=== PATIENT | male | born 1950 | race Caucasian/White ===

== ENCOUNTER 2019-04-11 11:52 | Outpatient (RCR) | payer MEDICARE, MEDICAID, SELFPAY ==
[2019-04-11 14:12] VITALS: BMI 32.3
== END 2019-06-25 07:44 | disposition home or self-care (01) ==
LOC: ANHWOC 11:52
PROVIDERS: PCP Family Medicine; Visit Provider Family Medicine
DX: L03.115 Cellulitis of right lower limb (principal); L98.9 Disorder of the skin and subcutaneous tissue, unspecified
CPT/HCPCS: 99212; A9270; G0463

== ENCOUNTER 2019-04-18 10:17 | Outpatient (CLI) | payer MEDICARE, MEDICAID, SELFPAY ==
[2019-04-18 10:54] LABS: Alanine Aminotransferase 32 U/L (4-50); Albumin Level 4.3 g/dL (3.5-5.1); Alkaline Phosphatase 211 U/L (38-126); Aspartate Amino Transferase 31 U/L (17-59); Bilirubin,Total 0.8 mg/dL (0.2-1.3); Blood Urea Nitrogen 45 mg/dL (9-20); Calcium 9.5 mg/dL (8.4-10.2); Carbon Dioxide 23 mmol/L (22-30); Chloride 98 mmol/L (98-107); Cholesterol 157 mg/dL (0-200); Estimated Glomerular Filt Rate > 60; Glucose 137 mg/dL (75-110); HDL Direct 25 mg/dL; Potassium 4.3 mmol/L (3.4-5.0); Sodium 134 mmol/L (137-145); Triglycerides 208 mg/dL (<150)
[2019-04-18 11:05] LABS: Hemoglobin A1C 7.7 % (<5.7); LDL Cholesterol Direct 78 mg/dL
== END 2019-04-18 10:18 | disposition home or self-care (01) ==
PROVIDERS: PCP Family Medicine; Visit Provider Family Medicine
DX: E11.9 Type 2 diabetes mellitus without complications (principal); I10 Essential (primary) hypertension; E78.5 Hyperlipidemia, unspecified
CPT/HCPCS: 36415; 80053; 80061; 83036

== ENCOUNTER 2019-05-02 09:57 | Outpatient (CLI) | payer MEDICARE, MEDICAID, SELFPAY ==
[2019-05-02 12:36] LABS: Alkaline Phosphatase 166 U/L (38-126); Prothrombin Time 30.7 Seconds (11.1-14.7)
[2019-05-04 06:29] LABS: GGT 235 U/L (3-70)
== END 2019-05-02 09:58 | disposition home or self-care (01) ==
PROVIDERS: PCP Family Medicine; Visit Provider Internal Medicine Hematology & Oncology
DX: Z79.01 Long term (current) use of anticoagulants (principal); R74.8 Abnormal levels of other serum enzymes
CPT/HCPCS: 36415; 82977; 84075; 85610

== ENCOUNTER 2019-07-30 08:56 | Outpatient (CLI) | payer MEDICARE, MEDICAID, SELFPAY ==
--- NOTE | ~2019-07-30 | CT_ITS ---
EXAMINATION: CT abdomen pelvis w con DATE: 07/30/2019 09:52 INDICATION: Malignant neoplasm of overlapping sites of the colon. TECHNIQUE: Computed tomography (CT) of the abdomen and pelvis was performed with 100 mL Omnipaque 350 intravenous contrast. Automated exposure control and iterative reconstruction technique were employe d. The dose-length product was 1429.66 mGy-cm. COMPARISON: CT abdomen and pelvis 06/26/2018, PET/CT 08/18/2017 FINDINGS: The visualized portions of the lung bases demonstrate mild atelectasis. No pleural effusion . There is biatrial enlargement of the heart. There are coronary artery calcifications. No pericardia l effusion. There is a catheter tip at superior cavoatrial junction. Bilateral gynecomastia is noted. The liver demonstrates surface nodularity, consistent with cirrhosis. There are calcifications in th e liver and spleen, consistent with old granulomatous disease. There is a new 2.2 cm mass in segment 4A of the liver. Again seen is a 2.4 cm cyst in the spleen. There are gallstones in the gallbladder, which is normal in size. A calcification in the pancreas is consistent with chronic pancreatitis. The adrenal glands are normal. There is cortical thinning of the kidneys. There are cysts in the kidneys measuring up to 5.5 cm on the right. The prostate is mildly enlarged. There is a left inguinal herni a containing fat. There is a staple line in the rectosigmoid. There are no dilated loops of bowel. Th e appendix is normal. There are no pathologically enlarged lymph nodes. There is no free intraperiton eal fluid. There is severe lumbar spondylosis and moderate thoracic spondylosis. IMPRESSION: 1. New 2.2 cm liver mass, consistent with metastatic disease. Consider ultrasound-guided core needle biopsy. 2. Cirrhosis of the liver. Reviewed, dictated and finalized at location E. IMPRESSION: 1. New 2.2 cm liver mass, consistent with metastatic disease. Consider ultrasou nd-guided core needle biopsy. 2. Cirrhosis of the liver.
[2019-07-30 09:37] LABS: Estimated Glomerular Filt Rate > 60
[2019-07-30 10:16] LABS: Hemoglobin A1C 7.8 % (<5.7)
[2019-07-30 10:22] LABS: Alanine Aminotransferase 18 U/L (4-50); Albumin Level 4.3 g/dL (3.5-5.1); Alkaline Phosphatase 214 U/L (38-126); Aspartate Amino Transferase 22 U/L (17-59); Bilirubin,Total 0.6 mg/dL (0.2-1.3); Blood Urea Nitrogen 26 mg/dL (9-20); Calcium 9.4 mg/dL (8.4-10.2); Carbon Dioxide 26 mmol/L (22-30); Chloride 101 mmol/L (98-107); Cholesterol 141 mg/dL (0-200); Estimated Glomerular Filt Rate > 60; Glucose 190 mg/dL (75-110); HDL Direct 23 mg/dL; Potassium 4.3 mmol/L (3.4-5.0); Sodium 135 mmol/L (137-145); Triglycerides 185 mg/dL (<150)
[2019-07-30 10:33] LABS: LDL Cholesterol Direct 75 mg/dL
== END 2019-07-30 08:57 | disposition home or self-care (01) ==
LOC: ANHIMG 08:58
PROVIDERS: PCP Family Medicine; Visit Provider Internal Medicine Hematology & Oncology
DX: E11.9 Type 2 diabetes mellitus without complications (principal); E78.5 Hyperlipidemia, unspecified; I10 Essential (primary) hypertension; C18.8 Malignant neoplasm of overlapping sites of colon; K74.60 Unspecified cirrhosis of liver
CPT/HCPCS: 36415; 74177; 80053; 80061; 83036; Q9967

== ENCOUNTER 2019-08-16 07:29 | Outpatient (CLI) | payer MEDICARE, MEDICAID, SELFPAY ==
--- NOTE | ~2019-08-16 | PE_ITS ---
EXAMINATION: PET skull to mid thigh DATE: 08/16/2019 09:42 INDICATION: Malignant neoplasm of overlapping sites of colon. TECHNIQUE: Blood glucose level was 196 mg/dL. 10.039 mCi of 18-fluorodeoxyglucose (18-FDG) was admini stered i.v. Low dose computed tomography (CT) images were acquired from the base of the brain to the proximal thighs for attenuation correction and anatomic localization. Automated exposure control was employed. Dose-length product (DLP) was 1093 mGy-cm. Positron emission tomography (PET) images were a cquired in the same distribution. COMPARISON: CT abdomen and pelvis 07/30/2019 FINDINGS: Head/neck: There is increased activity in the submandibular glands without CT correlate, likely physi ologic. There are no pathologically enlarged lymph nodes. Chest: The lungs demonstrate mild atelectasis. No pleural effusion. Calcified left hilar lymph nodes are consistent with old granulomatous disease. There is biatrial enlargement of the heart. There are coronary artery calcifications. No pericardial effusion. There is a left subclavian port with tip in right atrium. There is a 12 x 16 mm right paratracheal lymph node without increased activity, likely reactive. There is increased activity in right axillary lymph nodes, the largest of which measures 3. 0 x 1.9 cm. Abdomen/pelvis/proximal thighs: There is an ill-defined 3 cm mass at the junction of segments PHILL and VIII of the liver with maximum SUV of 9.0. The liver demonstrates surface nodularity, consistent wit h cirrhosis. There is a 2.5 cm cyst in the spleen. There are gallstones in the gallbladder, which is normal in size. There are three areas of increased activity in the pancreas with maximum SUV of 8.[address] correlate. The adrenal glands are normal. There are cysts in the kidneys measuring up to 4. 5 cm on the right. There are no dilated loops of bowel. There is an anastomosis in the rectosigmoid. The prostate is mildly enlarged. There are no pathologically enlarged lymph nodes. There is no free i ntraperitoneal fluid. There is severe lumbar spondylosis. There are areas of increased activity in tracie ne marrow without CT correlate, likely bone marrow stimulation. IMPRESSION: 1. Liver mass with increased activity, consistent with metastatic disease versus hepatocellular carci noma. Ultrasound-guided core needle biopsy is recommended. 2. Areas of increased activity in the pancreas without CT correlate, which may be pancreatitis or mal ignancy. 3. Right axillary lymphadenopathy with increased activity, which may be reactive lymphadenopathy or m etastatic disease. 4. Cirrhosis of the liver. Reviewed, dictated and finalized at location A. IMPRESSION: 1. Liver mass with increased activity, consistent with metastatic disease versu s hepatocellular carcinoma. Ultrasound-guided core needle biopsy is recommended . 2. Areas of increased activity in the pancreas without CT correlate, which may be pancreatitis or malignancy. 3. Right axillary lymphadenopathy with increased activity, which may be reactiv e lymphadenopathy or metastatic disease. 4. Cirrhosis of the liver.
[2019-08-16 08:04] LABS: Glucose Point of Care 196 (65-105)
== END 2019-08-16 07:30 | disposition home or self-care (01) ==
PROVIDERS: PCP Family Medicine; Visit Provider Internal Medicine Hematology & Oncology
DX: C18.8 Malignant neoplasm of overlapping sites of colon (principal); R16.0 Hepatomegaly, not elsewhere classified; R59.0 Localized enlarged lymph nodes; K74.60 Unspecified cirrhosis of liver
CPT/HCPCS: 78815; A9552

== ENCOUNTER 2019-08-23 09:15 | Outpatient (CLI) | payer MEDICARE, MEDICAID, SELFPAY ==
[2019-08-23 09:51] LABS: Alkaline Phosphatase 210 U/L (38-126)
[2019-08-27 03:54] LABS: GGT 174 U/L (3-70)
== END 2019-08-23 09:16 | disposition home or self-care (01) ==
LOC: ANHLAB 09:17
PROVIDERS: PCP Family Medicine; Visit Provider Family Medicine
DX: R74.8 Abnormal levels of other serum enzymes (principal)
CPT/HCPCS: 36415; 82977; 84075

== ENCOUNTER 2019-08-28 08:36 | Outpatient (CLI) | payer MEDICARE, MEDICAID, SELFPAY ==
[2019-08-22 10:39] VITALS: BMI 31.5
[2019-08-28] VITALS (12 sets, daily range): BP systolic 114–143; BP diastolic 58–95; PULSE 67–99; RESP 16–20; TEMP 36.2; O2SAT 95–100
--- NOTE | ~2019-08-28 | US_ITS ---
EXAMINATION: US biopsy liver DATE: 08/28/2019 10:49 INDICATION: Liver mass. TECHNIQUE: The procedure including the risks, benefits, and alternatives was discussed with the patie nt. Risks discussed included bleeding and infection. The patient understood the risks and agreed to p roceed. The skin overlying the liver was prepped and draped in usual sterile fashion. Anesthetic was administered with 1% lidocaine subcutaneously. An 18 gauge core biopsy needle was then used to obta in 3 core biopsy specimens under continuous sonographic guidance. The entry site was cleaned and dres sed. There were no immediate complications. FINDINGS: Ultrasound images demonstrate the needle in a 3.0 cm mass in the liver. IMPRESSION: 1. Ultrasound-guided core needle biopsy of a liver mass. Reviewed, dictated and finalized at location A.
[2019-08-28 09:05] LABS: Mean Platelet Volume 10.7 fl (7.4-10.4); Platelet Count Result 198 k/mm3 (150-375)
[2019-08-28 09:15] LABS: INR 1.1; Prothrombin Time 13.5 Seconds (11.1-14.7)
--- NOTE | 2019-08-28 11:00 | SUR.PHASEII ---
1045- from radiology. up in chair, pt instructed regarding NPO for next two hours. vital signs as charted. dressing dry and intact. call light within reach, feet elevated.
[2019-08-28 12:32] LABS: Glucose Point of Care 212 (65-105)
== END 2019-08-28 14:37 | disposition home or self-care (01) ==
PROVIDERS: Radiology Diagnostic Radiology; PCP Family Medicine; Visit Provider Internal Medicine Hematology & Oncology
DX: C18.8 Malignant neoplasm of overlapping sites of colon (principal); C22.9 Malignant neoplasm of liver, not specified as primary or secondary
CPT/HCPCS: 36415; 47000; 76942; 85049; 85610; 88307; 88313; 88342

== ENCOUNTER 2019-10-11 13:48 | Outpatient (RCR) | payer MEDICARE, MEDICAID, SELFPAY ==
[2019-08-02 10:14] LABS: INR 2.7; Prothrombin Time 28.4 Seconds (11.1-14.7)
[2019-10-11 14:48] LABS: INR 4.3; Prothrombin Time 40.4 Seconds (11.1-14.7)
== END 2019-10-31 23:59 | disposition home or self-care (01) ==
LOC: ANHLAB 13:48
PROVIDERS: PCP Family Medicine; Visit Provider Family Medicine
DX: Z51.81 Encounter for therapeutic drug level monitoring (principal); Z79.01 Long term (current) use of anticoagulants
CPT/HCPCS: 36415; 85610

== ENCOUNTER 2019-11-01 13:12 | Outpatient (RCR) | payer MEDICARE, MEDICAID, SELFPAY ==
[2019-11-01 15:17] LABS: INR 3.7; Prothrombin Time 36.3 Seconds (11.1-14.7)
== END 2019-11-01 13:13 | disposition home or self-care (01) ==
LOC: ANHLAB 13:12
PROVIDERS: PCP Family Medicine; Visit Provider Internal Medicine Hematology & Oncology
DX: Z51.81 Encounter for therapeutic drug level monitoring (principal); Z79.01 Long term (current) use of anticoagulants
CPT/HCPCS: 36415; 85610

== ENCOUNTER 2019-11-15 07:18 | Outpatient (RCR) | payer MEDICARE, MEDICAID, SELFPAY ==
[2019-09-20 10:18] VITALS: BMI 32.3
== END 2019-12-10 12:28 | disposition home or self-care (01) ==
LOC: ANHWOC 07:18
PROVIDERS: PCP Family Medicine; Visit Provider Family Medicine
DX: S31.809D Unspecified open wound of unspecified buttock, subsequent encounter (principal)
CPT/HCPCS: 99211; 99212; G0463

== ENCOUNTER 2019-12-03 12:14 | Outpatient (CLI) | payer MEDICARE, MEDICAID, SELFPAY ==
--- NOTE | ~2019-12-03 | CT_ITS ---
EXAMINATION: CT chest abdomen pelvis w con EXAM DATE: 12/03/2019 13:06 INDICATION: Overlapping neoplasm of colon. TECHNIQUE: Spiral CT of the chest, abdomen and pelvis was performed following intravenous injection o f 100 mL Omnipaque 350. Axial, coronal and sagittal images were reviewed. Coronal maximum intensity pixel images of chest reviewed. The dose-length product (DLP) for this examination was 1288.99 mGy- cm. The exposure was tailored according to patient size (auto mA exposure control), and iterative re construction (ASIR) was used as additional dose reduction technique. There is no prior study for favian de [place]. FINDINGS: CHEST: Largest right axillary lymph node measures 2.6 x 1.4 cm, interval decrease in size. No patholo gically enlarged mediastinal lymph nodes. Linear left basilar atelectasis. There is a 4.6 cm ascendin g aortic aneurysm. Left-sided portacatheter. There are no pleural or pericardial effusions. Trache obronchial tree is patent. There is no pneumothorax. Heart normal in size. There is mild mahamed nary arterial calcification, arterial sclerosis. ABDOMEN PELVIS: Vague low-density 1.6 cm left liver lobe medial segmental malignancy, decreased in si ze from 3 cm reported on PET/CT from August. Nodular liver contour suspicious for cirrhosis. There is a splenic fluid density lesion measuring 2.3 cm, benign. Some liver granulomas. Pancreas, adrenal gla nds are unremarkable. There are gallstones within an otherwise unremarkable gallbladder. No evidenc e of obstructive biliary disease. There is 5.1 cm cyst midpole right kidney. Other smaller renal cyst s bilaterally. No suspicious renal lesions. Portal and splenic veins are patent. Kidneys enhance sy mmetrically. There is no hydronephrosis. The prostate is unremarkable. The bladder is unremarkabl e. There is no retroperitoneal or pelvic lymphadenopathy. There is mild scattered arteriosclerotic disease. Small left inguinal fat-containing hernia. Probable appendicolith, appendix otherwise unremarkable. Moderate amount of colonic stool and gas. Th ere is rectosigmoid anastomosis site. The stomach and small bowel are unremarkable. No free intrap eritoneal gas. There are no osteoblastic or osteolytic lesions identified. Large posteriorly based disc osteophyte complexes T12-L3. IMPRESSION: 1. Decrease in size of left liver lobe malignancy. 2. Pathologically enlarged right axillary lymph node with interval decrease in size. 3. Mildly aneurysmal ascending aorta. 4. Cirrhosis. 5. Cholelithiasis. Reviewed, dictated and finalized at location B.
== END 2019-12-03 12:15 | disposition home or self-care (01) ==
PROVIDERS: PCP Family Medicine; Visit Provider Internal Medicine Hematology & Oncology
DX: C18.9 Malignant neoplasm of colon, unspecified (principal); K80.20 Calculus of gallbladder without cholecystitis without obstruction; K76.0 Fatty (change of) liver, not elsewhere classified; I71.4 Abdominal aortic aneurysm, without rupture
CPT/HCPCS: 71260; 74177; Q9967

== ENCOUNTER 2019-12-10 09:46 | Outpatient (CLI) | payer MEDICARE, MEDICAID, SELFPAY ==
[2019-12-10 15:29] LABS: INR 1.7; Prothrombin Time 19.2 Seconds (11.1-14.7)
== END 2019-12-10 09:47 | disposition home or self-care (01) ==
LOC: ANHLAB 09:49
PROVIDERS: PCP Family Medicine; Visit Provider Internal Medicine Hematology & Oncology
DX: Z79.01 Long term (current) use of anticoagulants (principal)
CPT/HCPCS: 36415; 85610

== ENCOUNTER 2020-01-11 12:48 | Outpatient (CLI) | payer MEDICARE, MEDICAID, SELFPAY ==
--- NOTE | ~2020-01-11 | MR_ITS ---
EXAMINATION: MR foot LT wo con, MR foot RT wo con DATE: 01/11/2020 14:55 INDICATION: Chronic nonpressure ulcers at the bilateral feet. TECHNIQUE: 1. Magnetic resonance imaging (MRI) of the left fore/mid foot was performed without intravenous contr ast. Sequences included axial, sagittal and coronal T1-weighted FSE, sagittal fluid sensitive FSE STI R and axial and coronal T2-weighted FS FSE. 2. MRI of the right fore/mid foot was performed without intravenous contrast. Sequences included axia l, sagittal and coronal T1-weighted FSE, sagittal fluid sensitive FSE STIR and axial and coronal T2-w eighted FS FSE. COMPARISON: Left foot MRI dated 09/19/2014 and left and right foot MR studies dated 09/08/2013 FINDINGS: Right foot: Evaluation is moderately limited by prominent motion artifact on multiple sequences. Second-fifth cla w toes. The distal phalanx of the right second toe appears small suggesting prior amputation. Second proximal interphalangeal joint centered marrow edema at the head of the second proximal phalanx and b ase of the middle phalanx. There is suspicion for corresponding loss of T1 marrow fat signal however assessment is limited by the motion artifact. Findings are nonetheless suspicious for septic arthriti s and osteomyelitis. Mild to moderate polyarticular osteoarthritis at the tarsal metatarsal, first me tatarsophalangeal and interphalangeal joints. Again seen is a likely intraosseous ganglion cyst at th e lateral base of the third metatarsal is more clearly visualized on the prior study. No joint effusi ons or other abnormal fluid collections. Fatty atrophy of the intrinsic musculature of the right fore foot. Left foot: Evaluation mild to moderately limited by motion artifact on multiple sequences. Second toe amputation at the level of the metatarsophalangeal joint. Stable appearance of chronic mild fragmentation of th e articular surface at the dorsal head of the second metatarsal with normal marrow signal. Left third -fifth claw toes. Additional joint centered marrow edema involving the head and neck of the fourth pr oximal phalanx with associated loss of T1 fat signal consistent with osteomyelitis. Additional marrow edema at the fourth middle phalanx without definitive T1 fat signal loss which could be either react abdulaziz or less advanced osteomyelitis. Additional mild to moderate osteoarthritis at the multiple tarsal similar fatty atrophy of the intrinsic musculature of the left forefoot. No joint effusions or other abnormal fluid collections. Subcutaneous edema of the dorsum of the forefoot. Metatarsal, metatarsop halangeal and interphalangeal joints. IMPRESSION: 1. Osteomyelitis at the head and neck of the left fourth proximal phalanx with reactive edema versus less advanced osteoarthritis at the fourth middle phalanx. 2. Second interphalangeal joint centered marrow edema at the head of the second proximal phalanx and base of the middle phalanx similarly suspicious for osteomyelitis with differential including reactiv e edema. 3. Sensitivity and specificity decreased by prominent motion artifact on multiple sequences of both f eet. Reviewed, dictated and finalized at location B. IMPRESSION: 1. Osteomyelitis at the head and neck of the left fourth proximal phalanx with reactive edema versus less advanced osteoarthritis at the fourth middle phalanx . 2. Second interphalangeal joint centered marrow edema at the head of the second proximal phalanx and base of the middle phalanx similarly suspicious for osteo myelitis with differential including reactive edema. 3. Sensitivity and specificity decreased by prominent motion artifact on multip le sequences of both feet. IMPRESSION: 1. Osteomyelitis at th
== END 2020-01-11 12:49 | disposition home or self-care (01) ==
PROVIDERS: PCP Family Medicine; Visit Provider Podiatrist Foot & Ankle Surgery
DX: E10.621 Type 1 diabetes mellitus with foot ulcer (principal); M79.671 Pain in right foot; M79.674 Pain in right toe(s); M79.675 Pain in left toe(s); B35.1 Tinea unguium; M79.672 Pain in left foot; L97.512 Non-pressure chronic ulcer of other part of right foot with fat layer exposed; L97.522 Non-pressure chronic ulcer of other part of left foot with fat layer exposed
CPT/HCPCS: 73718

== ENCOUNTER 2020-02-05 14:02 | Outpatient (CLI) | payer MEDICARE, MEDICAID, SELFPAY ==
--- NOTE | 2020-02-05 14:20 | ECG_ITS ---
Measurements Intervals [place] Rate: 121 P: VT: 0 QRS: -61 QRSD: 113 T: 107 QT: 315 QTc: 449 Interpretive Statements ATRIAL FIBRILLATION WITH RAPID VENTRICULAR RESPONSE INCOMPLETE RIGHT BUNDLE BRANCH BLOCK LEFT ANTERIOR FASCICULAR BLOCK ST-T WAVE ABNORMALITY IN HIGH LATERAL LEADS- CONSIDER ISCHEMIA BASELINE ARTIFACT- V1 ABNORMAL ECG Electronically Signed On 02-05-2020 15:00:39 [employer] by Juan M Kelly D.O.
== END 2020-02-05 14:03 | disposition home or self-care (01) ==
PROVIDERS: PCP Family Medicine; Visit Provider Family Medicine
DX: Z01.810 Encounter for preprocedural cardiovascular examination (principal); I45.10 Unspecified right bundle-branch block; I44.4 Left anterior fascicular block
CPT/HCPCS: 93005

== ENCOUNTER 2020-02-06 11:32 | Inpatient (IN) | payer MEDICARE, MEDICAID, SELFPAY ==
[2020-02-06] VITALS (27 sets, daily range): BP systolic 92–187; BP diastolic 54–128; PULSE 40–164; RESP 18–28; TEMP 35.9–36.8; O2SAT 98–100; BMI 32.5
--- NOTE | ~2020-02-06 | XR_ITS ---
EXAMINATION: XR chest 1V portable 02/06/2020 12:40 INDICATION: Chest pain PROCEDURE: AP portable chest COMPARISON: Comparison to multiple prior studies sequentially, with oldest reviewed study dated 10/03. FINDINGS: The lungs are clear. The cardiomediastinal silhouette is within normal limits. There are no pleural effusions. There is no pneumothorax suspected. Portacatheter tip in the SVC. Chronic maia nting left lateral costophrenic recess. IMPRESSION: 1: NO ACUTE CARDIOPULMONARY DISEASE. Reviewed, dictated and finalized at location A. NISTRATIVE SUPERVISOR
--- NOTE | 2020-02-06 11:37 | ECG_ITS ---
Measurements Intervals [place] Rate: 162 P: [place]: 0 QRS: -53 QRSD: 103 T: 120 QT: 287 QTc: 471 Interpretive Statements ATRIAL FIBRILLATION WITH RAPID VENTRICULAR RESPONSE INCOMPLETE RIGHT BUNDLE BRANCH BLOCK LEFT ANTERIOR FASCICULAR BLOCK ST-T WAVE ABNORMALITY IN HIGH LATERAL LEADS- CONSIDER ISCHEMIA BASELINE ARTIFACT- I, II, III, AVR, AVL, AVF, V2 ABNORMAL ECG Electronically Signed On 02-06-2020 12:13:53 TILE SHADER by Juan M Kelly D.O.
--- NOTE | 2020-02-06 11:37 | ED.ARRPALP ---
HPI - Arrhythmia/Palpitations General Chief Complaint: Arrhythmia/Palpitations Stated Complaint: Heart palpitations Time Seen by Provider: 02/06/20 11:36 Source: patient Mode of arrival: wheelchair History of Present Illness HPI narrative: Patient is a 69-year-old gentleman with a history of atrial fibrillation, metastatic adenocarcinoma of the colon, who presents for evaluation of palpitations. Patient was upstairs at a cardiology appointment today where he was noted to be tachycardic into the 160s. Patient states he has been compliant with his antihypertensive medications and medications for atrial fibrillation except for patient has been not taking his warfarin over the past 6 days because he is scheduled to have surgery next week with his leather skinner. Patient reports palpitations without chest pain or shortness of breath. No fever or chills. Related Data Home Medications Medication Instructions Recorded Confirmed fluticasone propionate 50 2 spray NASAL DAILY 02/05/19 01/22/20 mcg/actuation nasal spray,suspension multivitamin,kg-jvch-qpygenzf 1 tablet PO DAILY 03/19/19 01/22/20 aspirin 81 mg PO DAILY 08/22/19 01/22/20 digoxin 250 mcg PO DAILY 08/22/19 01/22/20 furosemide 40 mg PO DAILY 08/22/19 01/22/20 simvastatin 10 mg PO HS 08/22/19 01/22/20 triamcinolone acetonide 1 applic TOPICAL BID 08/22/19 01/22/20 loperamide [Imodium A-D] 2 mg PO Q4H PRN 09/20/19 01/22/20 cyanocobalamin (vitamin B-12) 500 mcg PO DAILY 12/10/19 01/22/20 [Vitamin B-12] ferrous sulfate 325 mg PO DAILY 12/10/19 01/22/20 mupirocin 2 % topical ointment 1 applic TOPICAL DAILY PRN gm 12/17/19 01/22/20 Allergies Allergy/AdvReac Type Severity Reaction Status Date / Time No Known Allergies Allergy Verified 01/22/20 10:28 Review of Systems Review of Systems: Narrative: CONSTITUTIONAL: Denies fever, chills ENT: Denies rhinorrhea, congestion, sore throat, or otalgia. CARDIOVASCULAR: Denies chest pain, reports palpitations, reports mild, chronic leg edema RESPIRATORY: Denies cough or dyspnea. GASTROINTESTINAL: Denies abdominal pain, nausea, vomiting, or diarrhea. SKIN: Denies rash or itching. MUSCULOSKELETAL: Denies back pain, joint pain, or myalgia. NEUROLOGIC: Denies headache, numbness, or weakness. [facility] Past Medical History Medical History Atrial fibrillation Cardiomyopathy CHF (congestive heart failure) Essential (primary) hypertension retirement current use of anticoagulant Malignant neoplasm of sigmoid colon (~07/28/18) Metabolic syndrome X Mixed hyperlipidemia Obesity Type 2 diabetes mellitus Surgical History Surgical History History of amputation of lesser toe of left foot 10/2013, 01/2015 History of orthopedic surgery Family History Family History Other Diabetes mellitus Family history of arthritis Family history of cardiovascular disease Family history of heart disease in male family member before age 55 Family history of thyroid disease Social History Social History Smoking status: Never smoker Alcohol intake: never Additional living arrangements comments: lives in a low income apartment complex Gender identity (if verbalized by the patient): Male Exam Narrative: Exam Narrative: GENERAL: Awake, alert, conversant HEAD: Normocephalic, atraumatic. EYES: PERRLA and EOMI. ENT: Nares clear, no rhinorrhea or epistaxis. Mucous membranes moist. NECK: Supple. CHEST: No respiratory distress, breathing even and non labored HEART: Irregular rate, atrial fibrillation with RVR ABDOMEN:Non distended, non tender EXTREMITIES: Normal range of motion. Mild pitting edema 1+ mid shins, no calf tenderness bilaterally SKIN: Warm, dry, no rash. NEURO:No focal deficits. Alert and oriented x3 Course
[2020-02-06] MEDS: dilTIAZem HCl INJ 25 MG/5 ML VIAL 10 MG IV PUSH ×2 (11:54→12:15)
[2020-02-06] MEDS: SODIUM CHLORIDE 0.9% IV 1,000 ML 999 ML IV CONT (11:55)
[2020-02-06 11:59] LABS: Basophils Absolute Auto 0.1 K/mm3 (0.0-0.1); Basophils Percent Auto 0.8 % (0.2-1.2); Eosinophils Absolute Auto 0.5 K/mm3 (0-0.3); Eosinophils Percent Auto 5.1 % (0-4.4); Hematocrit 36.1 % (42.0-52.0); Hemoglobin 12.3 g/dL (14.0-18.0); Immature Granulocyte Absolute 0.13 K/mm3 (0.00-0.031); Immature Granulocyte Percent A 1.5 % (0-0.5); Lymphocytes Absolute Auto 2.35 K/mm3 (0.9-3.2); Lymphocytes Percent Auto 26.8 % (18.3-44.2); Mean Corpuscular HGB Conc 34.1 g/dl (32-36); Mean Corpuscular Hemoglobin 34.9 pg (26-34); Mean Corpuscular Volume 102.6 fl (80-100); Mean Platelet Volume 10.3 fl (7.4-10.4); Neutrophils Absolute Auto 4.8 K/mm3 (1.3-6.7); Neutrophils Percent Auto 54.8 % (45.5-73.1); Platelet Count Result 172 k/mm3 (150-375); Red Blood Count 3.52 M/mm3 (4.6-6.20); Red Cell Distribution Width 15.6 % (11.5-14.5); White Blood Count 8.8 K/mm3 (4.5-10.0)
--- NOTE | 2020-02-06 12:05 | PC.NURSE ---
IV cardizem given. on hand cultivator. patient updated on current treatment plan.
[2020-02-06 12:08] LABS: INR 1.8; Prothrombin Time 21.7 Seconds (11.1-14.7)
[2020-02-06] MEDS: ASPIRIN 81 MG CHEWABLE TABLET 324 MG PO (12:08)
[2020-02-06 12:09] LABS: Partial Thromboplastin Time 41.8 SECONDS (22.3-36.8)
--- NOTE | 2020-02-06 12:10 | PC.NURSE ---
patient brought to ED with rapid afib. see triage notes. alert. hx of known afib but rate usually controlled per patient. patient in treatment for colon CA at this time. states that his last treatment was 1 week ago. has not taken warfarin since tuesday for surgery next tuesday. assessments documented. EKG being done.
[2020-02-06 12:12] LABS: Alanine Aminotransferase 44 U/L (4-50); Albumin Level 3.8 g/dL (3.5-5.1); Alkaline Phosphatase 116 U/L (38-126); Anion Gap 8 mmol/L (8-16); Aspartate Amino Transferase 51 U/L (17-59); Bilirubin,Total 0.7 mg/dL (0.2-1.3); Blood Urea Nitrogen 28 mg/dL (9-20); Carbon Dioxide 24 mmol/L (22-30); Chloride 104 mmol/L (98-107); Estimated Glomerular Filt Rate > 60; Glucose 121 mg/dL (75-110); Potassium 4.9 mmol/L (3.4-5.0); Sodium 136 mmol/L (137-145)
--- NOTE | 2020-02-06 12:20 | PC.NURSE ---
patient's HR still elevated. cardizem gtt increased. resting comfortably. alert. aware of current treatment plan. denies symptoms at this time.
[2020-02-06 12:23] LABS: Troponin I < 0.012 ng/mL (0.000-0.034)
--- NOTE | 2020-02-06 13:43 | PC.NURSE ---
planning for admission. orders now placed. HR still rapid at times. IV cardizem at 15mg. alert. oriented. wants to eat soon.
[2020-02-06] MEDS: ENOXAPARIN 100 MG/ML SYRINGE SUB-Q (14:02)
--- NOTE | 2020-02-06 14:30 | PC.NURSE ---
report given to RN on IMU. patient transfer via stretcher and monitor to 200. clothing, cell phone and glasses sent with patient.
--- NOTE | 2020-02-06 15:03 | ADMGEN ---
This patient, Donaldo Booker, was admitted to IMU Room 200-01. Patient/family oriented to hospital policies and general routines including ID bracelet, bed and alarms, visiting hours, pain management, procedures, bathroom and other care routines, personal items, smoking policy, room service/diet, and visiting hours. Information on how to activate the Rapid Response Team has been discussed. Patient/Family are encouraged to report perceived risks to care and to ask questions if they do not understand what they are told or what they should do.
--- NOTE | 2020-02-06 15:27 | PM.CNCAR ---
Assessment and Plan Assessment and plan (1) Atrial fibrillation with rapid ventricular response: Code(s): I48.91 - Unspecified atrial fibrillation Status: Acute Assessment and Plan: it sounds if he has had longstanding atrial fibrillation that has been more on controlled as of late. Uncertain as to what has caused the recent worsening rate control. Regardless, he should not be on digoxin. This will be discontinued. Will continue his diltiazem drip for now. Will start him on some beta-dinora also orally in the form of metoprolol tartrate 25 mg p.o. b.i.d.. Increase metoprolol and decrease diltiazem drip as needed/ able. A 2D echocardiogram with Doppler will also be ordered. I will check a TSH. Enoxaparin 1 milligram/kilogram q.12 hours will be initiated. He was on warfarin as an outpatient but this was held recently because of an upcoming foot surgery. I do not see a clear contraindication as to why he cannot have this upcoming surgery and therefore I will not start him back on oral anticoagulation at this point. will discontinue further troponins. He is not need further troponins ordered. He is not having any chest pain nor any anginal symptoms. (2) Essential (primary) hypertension: Code(s): I10 - Essential (primary) hypertension Status: Acute Assessment and Plan: above goal. Resume lisinopril and up titrate as needed. (3) long-term (current) use of anticoagulants: Code(s): Z79.01 - long-term (current) use of anticoagulants Status: Acute Assessment and Plan: Enoxaparin 1 milligram/kilogram subcuq.12 hours for now (4) Type 2 diabetes mellitus with other circulatory complications: Code(s): E11.59 - Type 2 diabetes mellitus with other circulatory complications Status: Acute Assessment and Plan: per hospitalist History of Present Illness History of Present Illness Consult date/time: 02/06/20 15:27 Requesting physician: Mariya Echols MD Consult reason: atrial fibrillation Reason For Visit: a fib with rvr Narrative: Date of service 02/06/2020 Reason consultation atrial fibrillation History: patient is a 69-year-old male who has a known history of atrial fibrillation. This was managed by his previous primary care physician Dr. Keen. He was managed with a combination of digoxin and warfarin although his warfarin has been on hold for an upcoming foot surgery. He does have a history of metastatic colon cancer. He was scheduled for an echocardiogram and our [facility] today and he was found to be in atrial fibrillation with rapid ventricular response. Over the past month or so he has noticed his heart rate has been faster. He has been having more lower extremity swelling than typical also. He denies any chest pain. He has no syncope, presyncope, paroxysmal nocturnal dyspnea, orthopnea. He does not feel palpitations but has noticed again that his heart rate has been faster. He thinks that he has been in atrial fibrillation since 1996. He has not seen Cardiology and I am uncertain as to what his workup has been in the past at this point. Review of Systems Review of Systems: All systems reviewed & are unremarkable except as noted in HPI and below Constitutional: Constitutional: Denies fatigue Eyes: Eyes: Denies blurry vision ENT: Reports Normal hearing present Cardiovascular: Cardiovascular: Denies chest pain and Reports leg edema Respiratory: Respiratory: Denies dyspnea Gastrointestinal: Gastrointestinal: Denies abdominal pain Genitourinary: Genitourinary: Denies dysuria Musculoskeletal: Musculoskeletal: Denies neck pain Integumentary/Breasts: Skin/Breast: Denies dry skin Neurologic: Denies headache(s) Psychiatric: Psychiatric: Denies anxiety Endocrine: Endocrine: Denies excessive sweating Hematologic/Lymphatic: Hematologic/Lymphatic: Denies easy bleeding Allergic/Immunologic: Allergic/Immunolo
[2020-02-06 16:38] LABS: Troponin I < 0.012 ng/mL (0.000-0.034)
--- NOTE | 2020-02-06 17:05 | PM.IMHP ---
H&P: HPI History of Present Illness Date/Time: 02/06/20 17:05 Chief complaint: a fib with rvr Narrative: Donaldo Booker is a 69 year old male who has a history of atrial fibrillation and metastatic adeno carcinoma of the colon. The patient tells me that he was not having any palpitations or chest pain or shortness of breath. The patient saw his proof machine operator today and was noted to be tachycardic into the 160s. The patient was found to be in AFib RVR. He has been compliant with his anti rhythmic medications but has been off of his Coumadin for the past 6 days for scheduled surgery on his foot. The patient told me that he was not have any chest pain or palpitations but in the emergency room he reported that he was having palpitations. No fever no chills. Cardiology has been consulted. The patient was placed on a Cardizem drip. He was given aspirin and IV fluids in the emergency room. He was started on subcu Lovenox therapeutic doses. Chest x-ray was read as no cardiopulmonary disease. Patient is being placed into inpatient status on date of service 02/06/2020. Review of Systems Review of Systems: All systems reviewed & are unremarkable except as noted in HPI and below Constitutional: Constitutional: Reports as per HPI and Reports no additional constitutional complaints Eyes: Eyes: Reports as per HPI and Reports no additional eye complaints ENT: Reports system reviewed and no additional complaints, except as documented and Reports Normal hearing present Cardiovascular: Cardiovascular: Reports no additional cardiovascular complaints Respiratory: Respiratory: Reports no additional respiratory complaints and Reports no additional respiratory complaints Gastrointestinal: Gastrointestinal: Reports as per HPI and Reports no additional gastrointestinal complaints Musculoskeletal: Musculoskeletal: Reports no additional musculoskeletal complaints Integumentary/Breasts: Skin/Breast: Reports system reviewed and no additional complaints, except as docu and Reports as per HPI Neurologic: Reports system reviewed and no additional complaints, except as documented, Reports as per HPI and Reports Normal hearing present Psychiatric: Psychiatric: Reports no additional psychiatric complaints and Reports as per HPI Endocrine: Endocrine: Reports no additional endocrine complaints Hematologic/Lymphatic: Hematologic/Lymphatic: Reports no additional hematologic/lymphatic complaints Allergic/Immunologic: Allergic/Immunologic: Reports no additional allergic/immunologic complaints COUNTS INCLUDE 234 BEDS AT THE [facility] Past Medical History Medical History (Updated 02/06/20 @ 17:16 by Nataly Villafuerte NP) Atrial fibrillation Atrial fibrillation Cardiomyopathy CHF (congestive heart failure) Colon cancer Receiving chemotherapy treatment. Essential (primary) hypertension Gout care home current use of anticoagulant Malignant neoplasm of sigmoid colon (~07/28/18) Metabolic syndrome X Mixed hyperlipidemia Obesity Port-A-Cath in place Type 2 diabetes mellitus Type 2 diabetes mellitus with other circulatory complications Surgical History Surgical History (Updated 02/06/20 @ 17:16 by Nataly Villafuerte NP) H/O colectomy History of amputation of lesser toe of left foot 10/2013, 01/2015 History of orthopedic surgery Family History Family History (Updated 02/06/20 @ 17:17 by Nataly Villafuerte NP) Mother Diabetes mellitus Father Cerebrovascular accident Other Family history of arthritis Family history of cardiovascular disease Family history of heart disease in male family member before age 55 Family history of thyroid disease Social History Social History (Updated 02/06/20 @ 17:19 by Nataly Villafuerte NP) Social History: Patient is a full code. he is single with no children. He never smoked use marijuana or alcohol or illicit drugs. No power precision dyer. He is disabled. Smoking status: Never smoker Second hand tobacco smoke exposure: Yes Alcohol intake:
[2020-02-06] MEDS: METOPROLOL TARTRATE 25 MG TABLET PO (17:10)
[2020-02-06 18:04] LABS: INR 1.8; Prothrombin Time 21.7 Seconds (11.1-14.7)
[2020-02-06] MEDS: WARFARIN (*PBKC) 5 MG TABLET PO (18:10)
[2020-02-06] MEDS: FERROUS SULFATE 324 MG TABLET PO (18:10)
[2020-02-06] MEDS: WARFARIN (*PBKC) 2.5 MG TABLET BY MOUTH (18:10)
--- NOTE | 2020-02-06 18:41 | PC.NURSE ---
Notified Dr. Sher of patient's heart rate dropping into the 30's. Cardizem drip had been turned down to 10mg/hr from 15mg/hr at the time of call. Metoprolol 25mg PO was given at 1710. New order to stop Diltiazem drip.
[2020-02-06] MEDS: SIMVASTATIN 10 MG TABLET PO (20:05)
[2020-02-06] MEDS: TRIAMCINOLONE ACET 0.1% CREAM 15 GM TUBE 1 APPLIC TOPICAL (20:06)
[2020-02-06 20:49] LABS: Glucose Point of Care 161 (65-105)
[2020-02-07] VITALS (9 sets, daily range): BP systolic 112–128; BP diastolic 56–66; PULSE 62–94; RESP 18–20; TEMP 36.3–36.6; O2SAT 99–100
--- NOTE | 2020-02-07 | ECHO_ITS ---
Patient Info Name: Donaldo Booker Age: 69 years : 1950 Gender: Male Ht: 72 in Wt: 226 lbs BSA: 2.31 m2 HR: 73 bpm BP: 112 / 56 mmHg Heart Rhythm: Atrial Fibrillation Technical Quality: Fair Exam Date: 02/07/2020 7:00 AM Exam Location: [facility] Patient Status: Inpatient Admit Date: 02/06/2020 Staff Ordering Physician: Joel Sher MD Casting Wheel Operator Helper: Shira Whittaker RD Attending Provider: Navarro Martinez MD Referring Physician: Christos PEREZ; Exam Type: CA echo dop color flow w con Study Info Complete two-dimensional, color flow and Doppler transthoracic echocardiogram is performed with contrast to opacify the left ventricle and to improve the deliniation of the left ventricle endocardial borders. Contrast/Agitated Saline Contrast/Ag. Saline: Definity Amount: 3.00 ml Summary 1. Left ventricular chamber dimension is mildly enlarged. 2. Left ventricular systolic function is mildly reduced, estimated at 45-50%. 3. Definity contrast injected to improve visualization. 4. Significant biatrial dilation. 5. Small amounts of aortic mitral and tricuspid regurgitation. Left Ventricle Left ventricular chamber dimension is mildly enlarged. Left ventricular systolic function is mildly reduced, estimated at 45-50%. Definity contrast injected to improve visualization. Right Ventricle Right ventricular chamber dimension is normal. Left Atria Left atrial chamber dimension is severely enlarged. Right Atria Right atrial chamber dimension is moderately enlarged. Aortic Valve The aortic valve is normal. There is trace aortic valve regurgitation. Pulmonic Valve The pulmonic valve is normal. Mitral Valve The mitral valve has normal leaflets. There is trace mitral valve regurgitation. The mitral valve annulus is mildly calcified. Tricuspid Valve The tricuspid valve leaflets are normal. There is mild tricuspid valve regurgitation. Pericardium/Pleural The pericardium appears normal. Aorta The aortic root size at the sinus of Valsalva is normal. Left Ventricular Outflow Tract Name Value Normal LVOT 2D LVOT Diameter 2.40 cm LVOT Doppler LVOT Peak Gradient 3 mmHg LVOT Mean Gradient 2 mmHg LVOT VTI 19.53 cm LVOT VTI/AV VTI Ratio 0.60 LVOT Stroke Volume 69.49 ml LVOT CO 5.49 l/min LVOT CI 2.45 L/min/m2 Pulmonic Valve Name Value Normal PV Doppler PV Peak Gradient 4 mmHg Tricuspid Valve Name Value Normal
[2020-02-07] MEDS: ENOXAPARIN 120 MG/0.8 ML SYRINGE 105 MG SUB-Q (01:51)
[2020-02-07] MEDS: FERROUS SULFATE 324 MG TABLET PO (05:18)
[2020-02-07 06:02] LABS: INR 1.8; Prothrombin Time 21.4 Seconds (11.1-14.7)
[2020-02-07 06:06] LABS: Basophils Absolute Auto 0.1 K/mm3 (0.0-0.1); Basophils Percent Auto 0.9 % (0.2-1.2); Eosinophils Absolute Auto 0.5 K/mm3 (0-0.3); Eosinophils Percent Auto 7.4 % (0-4.4); Hematocrit 32.6 % (42.0-52.0); Hemoglobin 10.9 g/dL (14.0-18.0); Immature Granulocyte Absolute 0.09 K/mm3 (0.00-0.031); Immature Granulocyte Percent A 1.4 % (0-0.5); Lymphocytes Absolute Auto 2.18 K/mm3 (0.9-3.2); Lymphocytes Percent Auto 32.8 % (18.3-44.2); Mean Corpuscular HGB Conc 33.4 g/dl (32-36); Mean Corpuscular Hemoglobin 34.8 pg (26-34); Mean Corpuscular Volume 104.2 fl (80-100); Mean Platelet Volume 10.4 fl (7.4-10.4); Monocytes Absolute Auto 0.8 K/mm3 (0.1-0.6); Monocytes Percent Auto 11.4 % (2.6-8.5); Neutrophils Absolute Auto 3.1 K/mm3 (1.3-6.7); Neutrophils Percent Auto 46.1 % (45.5-73.1); Platelet Count Result 156 k/mm3 (150-375); Red Blood Count 3.13 M/mm3 (4.6-6.20); Red Cell Distribution Width 15.5 % (11.5-14.5); White Blood Count 6.6 K/mm3 (4.5-10.0)
[2020-02-07 06:13] LABS: Alanine Aminotransferase 42 U/L (4-50); Albumin Level 3.1 g/dL (3.5-5.1); Alkaline Phosphatase 115 U/L (38-126); Anion Gap 7 mmol/L (8-16); Aspartate Amino Transferase 38 U/L (17-59); Bilirubin,Total 0.5 mg/dL (0.2-1.3); Blood Urea Nitrogen 23 mg/dL (9-20); Calcium 8.3 mg/dL (8.4-10.2); Carbon Dioxide 24 mmol/L (22-30); Chloride 106 mmol/L (98-107); Estimated CRCL calculation 84 ml/min; Estimated Glomerular Filt Rate > 60; Glucose 100 mg/dL (75-110); Lipase 73 U/L (23-300); Magnesium 2.1 mg/dL (1.6-2.3); Sodium 137 mmol/L (137-145)
[2020-02-07 06:17] LABS: Hemoglobin A1C 6.1 % (<5.7)
[2020-02-07 08:31] LABS: Glucose Point of Care 119 (65-105)
[2020-02-07] MEDS: TRIAMCINOLONE ACET 0.1% CREAM 15 GM TUBE 1 APPLIC TOPICAL (08:31)
[2020-02-07] MEDS: THERAPEUTIC MULTIVITAMINS/MINERALS TAB (*BKC) 1 TABLET PO (08:31)
[2020-02-07] MEDS: FLUTICASONE PROPIONATE 0.05% NA SPR 16 GM BTL (*BKC) 2 SPRAY NASAL (08:32)
[2020-02-07] MEDS: allopurinoL 300 MG TABLET PO (08:32)
[2020-02-07] MEDS: CYANOCOBALAMIN 500 MCG TABLET PO (08:32)
[2020-02-07] MEDS: FUROSEMIDE 40 MG TABLET PO (08:32)
[2020-02-07] MEDS: METOPROLOL TARTRATE 25 MG TABLET PO (08:32)
[2020-02-07] MEDS: lisinopriL 10 MG TABLET PO (08:32)
[2020-02-07] MEDS: metFORMIN HCL XR 500 MG TAB.SR.24H 1000 MG PO (08:33)
[2020-02-07] MEDS: GLIMEPIRIDE 1 MG TABLET PO (08:33)
--- NOTE | 2020-02-07 10:36 | PM.PNCARD ---
Progress Note: A&P Additional Plan 69-year-old man with: Chronic atrial fibrillation has responded well to metoprolol which was started yesterday by Dr. Sher. He has had atrial fibrillation for a long time he was previously treated with a combination of digoxin and warfarin. It looks like warfarin is currently on hold because of upcoming noncardiac surgery. No need to change any of his medications today heart rate is very well controlled at this time this morning his resting heart rate is in the 70s and 80s and he is asymptomatic. Will follow with you while he is in the hospital. Systemic anticoagulation should be resumed when surgery is completed. Unfortunately also has the diagnosis of metastatic carcinoma of the colon Juvenal Ramírez MD [facility] Subjective Date/time seen: Date of service: 02/07/20 10:36 Interval history: Follow-up visit in this 69-year-old man with chronic permanent atrial fibrillation. Asymptomatic this morning offers no cardiovascular complaints. Exam Const: General: comfortable and no acute distress HENMT: Mouth: Yes moist mucous membranes Eyes: Sclera: sclerae normal Pupils: Equal, round and reactive pupils present Neck: Neck: supple and no JVD Thyroid: thyroid normal Other: Carotid upstrokes are normal there are no bruits audible Resp: Effort & Inspection: normal respiratory effort Auscultation: clear to auscultation bilaterally Cardio: Rate: regular rate Rhythm: abnormal rhythm irregularly irregular GI: GI Palp: Yes Soft to palpation Auscultation: normal bowel sounds Skin: General skin exam: normal color Neuro: Cognition (Neuro): normal cognition Extrem: General: normal to inspection Objective Data Vital Signs Vital Signs: Vital Signs - 24 hr 02/06/20 12:07 02/06/20 12:15 02/06/20 13:51 Temperature 36.8 C Pulse Rate 104 H 164 H 135 H Respiratory Rate 22 H 24 H Blood Pressure 102/71 142/86 H 161/123 H Pulse Oximetry 98 100 02/06/20 13:52 02/06/20 13:57 02/06/20 14:00 Temperature Pulse Rate 126 H 124 H 102 H Respiratory Rate 23 H 23 H 23 H Blood Pressure 164/93 H Pulse Oximetry 100 02/06/20 14:06 02/06/20 14:12 02/06/20 14:15 Temperature Pulse Rate 118 H 112 H 118 H Respiratory Rate 26 H 28 H 23 H Blood Pressure 163/126 H 145/86 H Pulse Oximetry 02/06/20 14:16 02/06/20 14:21 02/06/20 14:26 Temperature Pulse Rate 125 H 136 H 102 H Respiratory Rate 23 H 24 H 19 Blood Pressure 151/78 H 156/115 H 174/128 H Pulse Oximetry 02/06/20 14:30 02/06/20 15:12 02/06/20 15:31 Temperature 36.5 C Pulse Rate 98 59 L 59 L Respiratory Rate 24 H 22 H 22 H Blood Pressure 180/82 H Pulse Oximetry 99 99 02/06/20 15:45 02/06/20 16:00 02/06/20 17:10 Temperature 36.4 C Pulse Rate 51 L 80 74 Respiratory Rate 18 Blood Pressure 187/82 H Pulse Oximetry 100 02/06/20 17:57 02/06/20 18:00 02/06/20 18:15 Temperature Pulse Rate 86 70 40 L Respiratory Rate Blood Pressure Pulse Oximetry 02/06/20 19:53 02/06/20 20:00 02/06/20 21:58 Temperature 35.9 C L Pulse Rate 48 L 55 L 58 L Respiratory Rate 20 20 Blood Pressure 92/54 L Pulse Oximetry 100 100 02/06/20 21:59 02/06/20 23:49 02/06/20 23:59 Temperature 36.2 C L Pulse Rate 48 L 66 66 Respiratory Rate 18 18 Blood Pressure 109/65 Pulse Oximetry 100 100 02/07/20 00:00 02/07/20 01:47 02/07/20 03:49 Temperature 36.3 C L Pulse Rate 62 75 66 Respiratory Rate 18 Blood Pressure 112/56 L Pulse Oximetry 100 02/07/20 04:00 02/07/20 05:31 02/07/20 08:00 Temperature 36.6 C Pulse Rate 67 69 93 Respiratory Rate 18 20 Blood Pressure 123/57 L Pulse Oximetry 100 99 02/07/20 08:32 02/07/20 10:00 Temperature Pulse Rate 94 76 Respiratory Rate Blood Pressure Pulse Oximetry Intake/Output Intake/Output: Intake & Output 02/04/20 02/05/20 02/06/20 02/07/20 23:59 23:59 23:59 23:59 Intake Total 1791.1 300
[2020-02-07 11:42] LABS: Folic Acid > 20.0 ng/mL (2.76->20)
--- NOTE | 2020-02-07 11:48 | PM.DS ---
DS: Admitting Diagnosis Admitting Diagnosis Admitting Diagnosis: a fib with rvr DS: Discharge Diagnosis Discharge Diagnosis (1) Atrial fibrillation with rapid ventricular response: Code(s): I48.91 - Unspecified atrial fibrillation Status: Acute Assessment and Plan: Patient was in RVR on admission and was placed on a diltiazem drip -he was transition to oral metoprolol -digoxin was stopped -he is on Coumadin at home but this is being held due to a procedure in the near future -cardiology was consulted and recommended the above changes and okay with discharge. He is okay to proceed with his procedure (2) Type 2 diabetes mellitus with other circulatory complications: Code(s): E11.59 - Type 2 diabetes mellitus with other circulatory complications Status: Chronic Assessment and Plan: Last glucose 150 -continue with his home medication of Janumet if formulary and glimepiride (3) Colon cancer: Code(s): C18.9 - Malignant neoplasm of colon, unspecified Status: Acute Assessment and Plan: -continue with routine follow-up and treatment (4) Mixed hyperlipidemia: Code(s): E78.2 - Mixed hyperlipidemia Status: Chronic Assessment and Plan: Continue with simvastatin. (5) Gout: Code(s): M10.9 - Gout, unspecified Status: Chronic Assessment and Plan: Continue with allopurinol. (6) Essential (primary) hypertension: Code(s): I10 - Essential (primary) hypertension Status: Acute Assessment and Plan: Last blood pressure 128/66. Continue metoprolol and lisinopril at discharge DS: Summary Hospital Course Reason for hospitalization: AFib RVR Hospital Course: Patient is a 69-year-old male with history of AFib and metastatic colon cancer who presented emergency room for palpitation and elevated heart rate. CBC revealed slight anemia with hemoglobin 12.3. BMP relatively normal. EKG showed AFib with RVR and the patient was started on a Cardizem drip. He was admitted to the hospitalist service and seen by Cardiology. He was transition from digoxin to metoprolol which improved his heart rate. He has been holding Coumadin for the last few days due to a foot procedure in the next week. He has no hypoxia and his oxygen saturation was 99%, PE felt to be less likely. TSH was normal. Overall, he did well with the medication changes and was ready for discharge. He was educated about the worrisome signs and symptoms to come back to emergency room for was discharged in stable condition. Status at Discharge Overall status at discharge: patient is back to baseline Time Spent with Patient Time attestation: Total time spent providing and/or coordinating discharge services:36 min Time spent: Greater than 30 minutes Exam Narrative: Exam Narrative: General: Well developed well nourished patient in NAD HEENT: normocephalic Neck: supple Neuro: Alert and oriented x4 CV: Irregularly irregular with occasional PVCs noted on telemetry. Currently AFib rhythm at 95 beats per minute Resp:CTA Abd: Soft, non distended. No pain to palpation. Positive bowel sounds Extremities: No swelling, erythema, or pain to palpation. DS: Data Data Completed and Pending Labs on day of discharge: Labs from last 24 hours 02/07/20 02/07/20 02/07/20 08:00 04:25 04:25 WBC RBC Hgb Hct MCV MCH MCHC RDW Plt Count MPV Immature Gran % (Auto) Neut % (Auto) Lymph % (Auto) [place] % (Auto) Eos % (Auto) Baso % (Auto) Lymph # (Auto) [place] # (Auto) Eos # (Auto) Baso # (Auto) Abs Immat Gran (auto) Absolute Neuts (auto) Absolute Nucleated RBC Nucleated RBC % PT 21.4 H INR 1.8 APTT Sodium Potassium Chloride Carbon Dioxide Anion Gap BUN Creatinine Estim Creat Clear Calc Estimated GFR Glucose POC Capillary Glucose
[2020-02-07 12:11] LABS: Glucose Point of Care 150 (65-105)
== END 2020-02-07 15:04 | disposition home or self-care (01) | DRG 201 ==
LOC: ANHED 12:08 → ANHIMU 13:47
PROVIDERS: Emergency Medicine; Nurse Practitioner; Admitting Provider Family Medicine; Emergency Provider Emergency Medicine; PCP Family Medicine; Visit Provider Physician Assistant
DX: I48.21 Permanent atrial fibrillation (principal); E11.59 Type 2 diabetes mellitus with other circulatory complications; E78.2 Mixed hyperlipidemia; C18.9 Malignant neoplasm of colon, unspecified; M10.9 Gout, unspecified; C79.9 Secondary malignant neoplasm of unspecified site; I11.0 Hypertensive heart disease with heart failure; I50.9 Heart failure, unspecified; I42.9 Cardiomyopathy, unspecified; E66.9 Obesity, unspecified; E88.81 Metabolic syndrome and other insulin resistance; D64.9 Anemia, unspecified; Z79.01 Long term (current) use of anticoagulants; Z79.899 Other long term (current) drug therapy; Z68.32 Body mass index [BMI] 32.0-32.9, adult
CPT/HCPCS: 36415; 71045; 80048; 80053; 81002; 82607; 82728; 82746; 83036; 83690; 83735; 84443; 84484; 85025; 85610; 85730; 93005; 96361; 96365; 96366; 96372; 96376; 99285; A9270; C8929; G0378; J1650; J7030; Q9957

== ENCOUNTER 2020-02-12 10:15 | Emergency (ER) | payer MEDICARE, MEDICAID, SELFPAY ==
--- NOTE | ~2020-02-12 | XR_ITS ---
EXAMINATION: XR hand LT min 3V DATE: 02/12/2020 10:34 INDICATION: Left hand pain and swelling. TECHNIQUE: 4 views of left hand were obtained. COMPARISON: None. FINDINGS: Bone alignment is normal. No fracture. There is mild osteoarthritis of first carpometacarpa l joint, first metacarpophalangeal joint, first interphalangeal joint, and fifth proximal and distal interphalangeal joints. There is hand soft tissue swelling. IMPRESSION: 1. Mild polyarticular osteoarthritis. Reviewed, dictated and finalized at location A. BLOWER MECHANIC
[2020-02-12 10:20] VITALS: BP 111/84; PULSE 109; RESP 20; TEMP 36.1; O2SAT 99
--- NOTE | 2020-02-12 10:48 | ED.UPPEXIN ---
HPI - Extremity Injury (Upper) General Chief Complaint: Extremity Injury, Upper Stated Complaint: L HAND INJURY Time Seen by Provider: 02/12/20 10:16 Source: patient Mode of arrival: ambulatory Limitations: no limitations History of Present Illness HPI narrative: 69-year-old male presents to [facility] with complaints of pain and swelling to the dorsal aspect of his left hand for the past 4 days. Patient reports that he fell landing his left hand. Patient has been wearing an Rafael wrap and applying cool compress to the area with minimal relief. Patient denies numbness, tingling or erythema. Patient denies previous injury to his hand. MD complaint: injury to: left Onset (ago): day(s) (4) Other Extremity Injury: Left: hand Place: home Relieving factors: none Treatments prior to arrival: cold therapy and bandage Related Data Home Medications Medication Instructions Recorded Confirmed fluticasone propionate 50 2 spray NASAL DAILY 02/05/19 02/06/20 mcg/actuation nasal spray,suspension multivitamin,[id number]-[id number] 1 tablet PO DAILY 03/19/19 02/06/20 furosemide 40 mg PO DAILY 08/22/19 02/06/20 simvastatin 10 mg PO HS 08/22/19 02/06/20 triamcinolone acetonide 1 applic TOPICAL Q12H 08/22/19 02/06/20 loperamide [Imodium A-D] 2 mg PO Q4H PRN 09/20/19 02/06/20 cyanocobalamin (vitamin B-12) 500 mcg PO DAILY 12/10/19 02/06/20 [Vitamin B-12] ferrous sulfate 325 mg PO Q12H 12/10/19 02/06/20 mupirocin 2 % topical ointment 1 applic TOPICAL DAILY PRN gm 12/17/19 02/06/20 ciprofloxacin HCl 500 mg PO Q12H 02/06/20 02/06/20 warfarin See Rx Instructions .ROUTE .COMPLEX 02/06/20 02/06/20 Allergies Allergy/AdvReac Type Severity Reaction Status Date / Time No Known Allergies Allergy Verified 01/22/20 10:28 Review of Systems Constitutional: Constitutional: Denies chills, Denies fatigue, Denies fever(s) and Denies weakness Cardiovascular: Cardiovascular: Denies chest pain, Denies rapid heart rate, Denies radiating jaw, neck or arm pain and Denies slow heart rate Respiratory: Respiratory: Denies chest congestion, Denies cough, Denies dyspnea and Denies wheezing Gastrointestinal: Gastrointestinal: Denies abdominal pain, Denies constipation, Denies diarrhea, Denies nausea and Denies vomiting Musculoskeletal: Musculoskeletal: Reports arthralgias and Reports joint swelling Integumentary/Breasts: Skin/Breast: Denies rash and Denies skin ulcer Neurologic: Denies dizziness and Denies syncope [facility] Past Medical History Medical History Atrial fibrillation Atrial fibrillation Cardiomyopathy CHF (congestive heart failure) Colon cancer Receiving chemotherapy treatment. Essential (primary) hypertension Gout halfway current use of anticoagulant Malignant neoplasm of sigmoid colon (~07/28/18) Metabolic syndrome X Mixed hyperlipidemia Obesity Port-A-Cath in place Type 2 diabetes mellitus Type 2 diabetes mellitus with other circulatory complications Surgical History Surgical History H/O colectomy History of amputation of lesser toe of left foot 10/2013, 01/2015 History of orthopedic surgery Family History Family History Mother Diabetes mellitus Father Cerebrovascular accident Other Family history of arthritis Family history of cardiovascular disease Family history of heart disease in male family member before age 55 Family history of thyroid disease Social History Social History Social History: Patient is a full code. he is single with no children. He never smoked use marijuana or alcohol or illicit drugs. No power trial attorney. He is disabled. Smoking status: Never smoker Second hand tobacco smoke exposure: Yes Alcohol intake: unknown Substance use: unknown Additional living arrangements c
== END 2020-02-12 10:58 | disposition home or self-care (01) ==
PROVIDERS: Emergency Provider Nurse Practitioner Family; PCP Family Medicine
DX: M79.642 Pain in left hand (principal); I48.91 Unspecified atrial fibrillation; I11.0 Hypertensive heart disease with heart failure; I50.9 Heart failure, unspecified; Z79.01 Long term (current) use of anticoagulants; E78.2 Mixed hyperlipidemia; E11.9 Type 2 diabetes mellitus without complications; M10.9 Gout, unspecified; Z85.038 Personal history of other malignant neoplasm of large intestine
CPT/HCPCS: 73130; 99213; G0463

== ENCOUNTER 2020-03-10 08:00 | Outpatient (RCR) | payer MEDICARE, MEDICAID, SELFPAY ==
[2019-11-27 10:48] LABS: INR 2.1
[2019-12-25 09:47] LABS: Basophils Absolute Auto 0.1 K/mm3 (0.0-0.1); Basophils Percent Auto 1.1 % (0.2-1.2); Eosinophils Absolute Auto 0.6 K/mm3 (0-0.3); Eosinophils Percent Auto 7.5 % (0-4.4); Hematocrit 34.6 % (42.0-52.0); Immature Granulocyte Absolute 0.06 K/mm3 (0.00-0.031); Immature Granulocyte Percent A 0.7 % (0-0.5); Lymphocytes Absolute Auto 3.23 K/mm3 (0.9-3.2); Lymphocytes Percent Auto 38.7 % (18.3-44.2); Mean Corpuscular HGB Conc 34.7 g/dl (32-36); Mean Corpuscular Hemoglobin 34.9 pg (26-34); Mean Corpuscular Volume 100.6 fl (80-100); Mean Platelet Volume 9.9 fl (7.4-10.4); Monocytes Absolute Auto 0.8 K/mm3 (0.1-0.6); Monocytes Percent Auto 9.8 % (2.6-8.5); Neutrophils Absolute Auto 3.5 K/mm3 (1.3-6.7); Neutrophils Percent Auto 42.2 % (45.5-73.1); Platelet Count Result 213 k/mm3 (150-375); Red Blood Count 3.44 M/mm3 (4.6-6.20); Red Cell Distribution Width 16.7 % (11.5-14.5); White Blood Count 8.4 K/mm3 (4.5-10.0)
[2019-12-25 09:53] LABS: Blood Urea Nitrogen 51 mg/dL (8-26); Carbon Dioxide 24 mmol/L (22-30); Chloride 102 mmol/L (98-109); Estimated Glomerular Filt Rate > 60; Glucose 121 mg/dL (70-105); Potassium 4.2 mmol/L (3.5-4.9); Sodium 136 mmol/L (138-146)
[2019-12-25 11:29] LABS: Alanine Aminotransferase 37 U/L (4-50); Albumin Level 3.9 g/dL (3.5-5.1); Alkaline Phosphatase 144 U/L (38-126); Anion Gap 10 mmol/L (8-16); Aspartate Amino Transferase 41 U/L (17-59); Bilirubin,Total 0.5 mg/dL (0.2-1.3); Blood Urea Nitrogen 55 mg/dL (9-20); Calcium 9.4 mg/dL (8.4-10.2); Carbon Dioxide 25 mmol/L (22-30); Chloride 101 mmol/L (98-107); Estimated Glomerular Filt Rate > 60; Glucose 121 mg/dL (75-110); Potassium 4.5 mmol/L (3.4-5.0); Sodium 136 mmol/L (137-145)
[2019-12-25 11:41] LABS: INR 1.8; Prothrombin Time 20.7 Seconds (11.1-14.7)
[2020-01-22 11:50] LABS: INR 2.1; Prothrombin Time 24.4 Seconds (11.1-14.7)
[2020-03-10 11:11] LABS: INR 2.7; Prothrombin Time 29.6 Seconds (11.1-14.7)
== END 2020-03-10 23:59 | disposition home or self-care (01) ==
LOC: ANHLAB 08:00
PROVIDERS: PCP Family Medicine; Visit Provider Internal Medicine Hematology & Oncology
DX: Z51.81 Encounter for therapeutic drug level monitoring (principal); Z79.01 Long term (current) use of anticoagulants
CPT/HCPCS: 36415; 80048; 80053; 85025; 85610

== ENCOUNTER 2020-03-17 06:53 | Outpatient (CLI) | payer MEDICARE, MEDICAID, SELFPAY ==
--- NOTE | ~2020-03-17 | CT_ITS ---
EXAMINATION: CT chest abdomen pelvis w con DATE: 03/17/2020 07:49 INDICATION: Restaging of malignant neoplasm of colon TECHNIQUE: Computed tomography (CT) of the chest, abdomen, and pelvis was performed with 100 cc Omnip aque 350 intravenous contrast. Automated exposure control and iterative reconstruction technique were employed. Exam dose: 1560.01 mGy-cm total exam DLP. COMPARISON: 02/06/2020 portable AP chest 12/03/2019 CT chest abdomen pelvis FINDINGS: CHEST CT: Mild bilateral gynecomastia. There is chronic mild discoid scarring in the left lower lobe and minimal new infiltrate or atelectas is in the posteromedial left lung base. Cardiomegaly. No pericardial or pleural effusion. Previously reported right axillary lymph node measuring 2.6 x 1.4 cm on 12/03/2019 currently measures 12.6 x 25 mm. No hilar or mediastinal mass lesion or lymphadenopathy. Ascending thoracic aorta measures up to 4.5 cm diameter. Borderline diameter of the thoracic aortic arch. Normal caliber of the descending thoracic aorta. No thoracic aortic dissection is detected. ABDOMEN/PELVIS CT: Surface nodularity of liver suggests cirrhosis. Occasional hepatic and splenic calcified granulomas c onsistent with old granulomatous disease. Previously mentioned vague hypoattenuating 1.6 cm medial se gment left hepatic lobe lesion is readily detectable on the current examination. No other hepatic spa ce-occupying mass lesion is evident. There are multiple dependent gallstones. No gallbladder wall thickening or pericholecystic fluid or i nflammation. No bile duct or pancreatic duct dilatation. No pancreatic mass lesion or calcification. Stable approximately 2.3 cm cystic lesion of the spleen. Normal morphology of the adrenal glands. Bilateral renal cysts are again noted, measuring up to 5.4 cm on the right, 3.6 cm on the left. Normal caliber of the abdominal aorta. No intraperitoneal or retroperitoneal or pelvic mass lesion or adenopathy or ascites. Fat-containing left inguinal hernia. Prostate enlargement and minimal calcification. The urinary bladder is unremarkable. There is a suture line at the rectosigmoid area. No bowel obstruction, bowel wall thickening, pneumatosis or intraperitoneal free air is detected. Nor mal appendix. No suspicious osteolytic or osteoblastic lesions are noted. There are degenerative changes of the tho racic and lumbar spine. IMPRESSION: Previously reported 1.6 cm medial segment left hepatic lobe lesion is not readily eviden t on the current examination, improved since 12/03/2019 Probable cirrhosis Cholelithiasis Bilateral renal cysts Reviewed, dictated and finalized at Location A. Reviewed, dictated and finalized at location B. RANCE CENTER MANAGER IMPRESSION: Previously reported 1.6 cm medial segment left hepatic lobe lesion is not readily evident on the current examination, improved since 12/03/2019 Probable cirrhosis Cholelithiasis Bilateral renal cysts
== END 2020-03-17 06:54 | disposition home or self-care (01) ==
PROVIDERS: PCP Family Medicine; Visit Provider Internal Medicine Hematology & Oncology
DX: C18.8 Malignant neoplasm of overlapping sites of colon (principal); K80.20 Calculus of gallbladder without cholecystitis without obstruction; N28.1 Cyst of kidney, acquired
CPT/HCPCS: 71260; 74177; Q9967

== ENCOUNTER 2020-05-15 14:21 | Observation (INO) | payer MEDICARE, MEDICAID, SELFPAY ==
[2020-05-15] VITALS (12 sets, daily range): BP systolic 101–128; BP diastolic 52–93; PULSE 79–124; RESP 15–31; TEMP 36.3–36.4; O2SAT 98–100; BMI 32.8
--- NOTE | ~2020-05-15 | XR_ITS ---
EXAMINATION: XR chest 2V DATE: 05/15/2020 15:04 INDICATION: Arrhythmia. TECHNIQUE: PA and lateral views of the chest were obtained. COMPARISON: Chest radiograph dated 02/06/[address] dated 03/17/2020 FINDINGS: Mild increased interstitial pattern in the bilateral lower lung zones with a few peripheral Carrington B- lines near the right costophrenic angle consistent with mild pulmonary edema. No other airspace opaci ties, pleural effusion or pneumothorax. Mild cardiomegaly. Left subclavian central venous port cathet er with distal tip at the superior cavoatrial junction. IMPRESSION: 1. Mild increased interstitial pattern in the lower lung zones most likely congestive heart failure r elated mild pulmonary edema versus less likely pneumonia. 2. Cardiomegaly. Reviewed, dictated and finalized at location B. 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 Mild increased interstitial pattern in the lower lung zones most likely rancho estive heart failure related mild pulmonary edema versus less likely pneumonia. 2. Cardiomegaly.
[2020-05-15] MEDS: dilTIAZem HCl INJ 25 MG/5 ML VIAL 10 MG IV PUSH (14:40)
[2020-05-15 14:53] LABS: Basophils Absolute Auto 0.1 K/mm3 (0.0-0.1); Basophils Percent Auto 0.8 % (0.2-1.2); Eosinophils Absolute Auto 0.7 K/mm3 (0-0.3); Eosinophils Percent Auto 7.5 % (0-4.4); Hematocrit 39.3 % (42.0-52.0); Hemoglobin 12.7 g/dL (14.0-18.0); Immature Granulocyte Absolute 0.09 K/mm3 (0.00-0.031); Immature Platelet Fraction Pct 3.7 % (0.9-11.2); Lymphocytes Absolute Auto 2.31 K/mm3 (0.9-3.2); Lymphocytes Percent Auto 24.4 % (18.3-44.2); Mean Corpuscular HGB Conc 32.3 g/dl (32-36); Monocytes Absolute Auto 0.8 K/mm3 (0.1-0.6); Monocytes Percent Auto 8.3 % (2.6-8.5); Neutrophils Absolute Auto 5.5 K/mm3 (1.3-6.7); Platelet Count Result 126 k/mm3 (150-375); Red Blood Count 3.97 M/mm3 (4.6-6.20); Red Cell Distribution Width 17.2 % (11.5-14.5); White Blood Count 9.5 K/mm3 (4.5-10.0)
[2020-05-15 15:02] LABS: INR 2.6; Prothrombin Time 28.1 Seconds (11.1-14.7)
[2020-05-15 15:03] LABS: Anion Gap 8 mmol/L (8-16); Blood Urea Nitrogen 34 mg/dL (9-20); Calcium 8.7 mg/dL (8.4-10.2); Carbon Dioxide 22 mmol/L (22-30); Chloride 112 mmol/L (98-107); Estimated CRCL calculation 60 ml/min; Estimated Glomerular Filt Rate 55; Glucose 160 mg/dL (75-110); Partial Thromboplastin Time 43.1 SECONDS (22.3-36.8); Potassium 4.2 mmol/L (3.4-5.0); Sodium 142 mmol/L (137-145)
--- NOTE | 2020-05-15 15:15 | ECG_ITS ---
Measurements Intervals [facility] Rate: 142 P: OR: 0 QRS: -53 QRSD: 113 T: 120 QT: 329 QTc: 507 Interpretive Statements ATRIAL FIBRILLATION WITH RAPID VENTRICULAR RESPONSE INCOMPLETE RIGHT BUNDLE BRANCH BLOCK LEFT ANTERIOR FASCICULAR BLOCK BORDERLINE ST-T WAVE ABNORMALITY- HIGH LATERAL LEADS BASELINE WANDER- V6 ABNORMAL ECG Electronically Signed On 05-15-2020 15:26:37 ALTERATIONS SEWER by Juan M Kelly D.O.
[2020-05-15 16:16] LABS: NT Pro B Type Natriuretic Pept 5480 PG/ML (5-100)
--- NOTE | 2020-05-15 16:37 | ED.GENADULT ---
HPI - General Adult General Chief complaint: Unspecified Stated complaint: high heart rate Time Seen by Provider: 05/15/20 14:25 History of Present Illness HPI narrative: Patient is a 69-year-old male who presents ER with elevated heart rate. 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 Reports he has not felt any palpitations and he is not experiencing shortness of breath or chest pain. He is without orthopnea. He has had this issue in the past. Reports compliance with his home warfarin as well as his home metoprolol. Related Data Home Medications Medication Instructions Recorded Confirmed fluticasone propionate 50 2 spray NASAL DAILY 02/05/19 05/06/20 mcg/actuation nasal spray,suspension multivitamin,[id number] 1 tablet PO DAILY 03/19/19 05/06/20 triamcinolone acetonide 1 applic TOPICAL Q12H 08/22/19 05/06/20 loperamide [Imodium A-D] 2 mg PO Q4H PRN 09/20/19 05/06/20 cyanocobalamin (vitamin B-12) 500 mcg PO DAILY 12/10/19 05/06/20 [Vitamin B-12] ferrous sulfate 325 mg PO Q12H 12/10/19 05/06/20 mupirocin 2 % topical ointment 1 applic TOPICAL DAILY PRN gm 12/17/19 05/06/20 warfarin See Rx Instructions .ROUTE .COMPLEX 02/06/20 05/06/20 magnesium oxide 500 mg PO BID 03/10/20 05/06/20 Allergies Allergy/AdvReac Type Severity Reaction Status Date / Time No Known Allergies Allergy Verified 04/18/20 14:41 Review of Systems Review of Systems: All systems reviewed & are unremarkable except as noted in HPI and below Constitutional: Constitutional: Denies chills, Denies fever(s) and Denies weakness ENT: Denies nasal congestion, Denies sinus pressure and Denies sore throat Cardiovascular: Cardiovascular: Reports no additional cardiovascular complaints Respiratory: Respiratory: Reports no additional respiratory complaints Gastrointestinal: Gastrointestinal: Denies abdominal pain, Denies heartburn and Denies vomiting PMF Past Medical History Medical History Atrial fibrillation Atrial fibrillation Cardiomyopathy CHF (congestive heart failure) Colon cancer Receiving chemotherapy treatment. Essential (primary) hypertension Gout alf current use of anticoagulant Malignant neoplasm of sigmoid colon (~07/28/18) Metabolic syndrome X Mixed hyperlipidemia Obesity Port-A-Cath in place Type 2 diabetes mellitus Type 2 diabetes mellitus with other circulatory complications Surgical History Surgical History H/O colectomy History of amputation of lesser toe of left foot 10/2013, 01/2015 History of orthopedic surgery Family History Family History Mother Diabetes mellitus Father Cerebrovascular accident Other Family history of arthritis Family history of cardiovascular disease Family history of heart disease in male family member before age 55 Family history of thyroid disease Social History Social History Social History: Patient is a full code. he is single with no children. He never smoked use marijuana or alcohol or illicit drugs. 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 He is disabled. Smoking status: Never smoker Second hand tobacco smoke exposure: Yes Alcohol intake: unknown Substance use: unknown Additional living arrangements comments: lives in a low income apartment complex Gender identity (if verbalized by the patient): Male Spiritual care concerns: No Exam Narrative: Exam Narrative: GENERAL: Chronically ill-appearing, well-nourished, and in no acute distress. HEAD: Normocephalic, atraumatic. ENT: Mucous membranes moist. CHEST: Clear to auscultation. No respiratory distress. HEART: Tachycardic and irregularly irregular. Normal radial pulses.. ABDOMEN: Soft, nontender, nondistended.
--- NOTE | 2020-05-15 17:54 | PCCCNOTE ---
Meet with pt and son and discussed resources available to assist pt. Phone number and website info given to son for him to call to get an evaluation. Also encouraged to contact primary physician for home health care referral.
--- NOTE | 2020-05-15 18:11 | ADMGEN ---
This patient, Donaldo Booker, was admitted to IMU Room 232-01 at 1810. Patient/family oriented to hospital policies and general routines including ID bracelet, bed and alarms, visiting hours, pain management, procedures, bathroom and other care routines, personal items, smoking policy, room service/diet, and visiting hours. Information on how to activate the Rapid Response Team has been discussed. Patient/Family are encouraged to report perceived risks to care and to ask questions if they do not understand what they are told or what they should do.
--- NOTE | 2020-05-15 19:45 | PM.IMHP ---
H&P: HPI History of Present Illness Date/Time: 05/15/20 19:45 Chief Complaint: Rapid AFib. Narrative: This is a 69-year-old male with atrial fibrillation, mildly reduced LV function on echocardiogram in January 2020, hypertension, anemia, and type 2 diabetes mellitus who presented to the emergency department earlier today from Dr. Sher's office for further treatment of atrial fibrillation with rapid ventricular response. He was scheduled for an EKG and echocardiogram today to obtain clearance for an upcoming surgery for what sounds like debridement and/or amputation of a left toe due to underlying infection. In the office today he was found to be in atrial fibrillation with rapid ventricular response and was sent to the emergency department for evaluation. On occasion he will feel his heart beating irregularly but it has never caused him much issue and he was not aware that his heart was beating fast today. He was started on a Cardizem drip in the emergency department and remains on such at this time. He has no specific complaints since specifically denies chest pain, pleuritic pain, feelings of racing heart, shortness of breath, nausea, vomiting, and diaphoresis. No exertional chest pain or shortness of breath. He states compliance with his home medications. Review of Systems Review of Systems: Narrative: Twelve systems were reviewed with pertinent positives and negatives as per HPI. No fever, chills, or sweats. Denies recent cold and flu symptoms. Currently taking ciprofloxacin for a left toe infection, possible osteomyelitis however he is not sure of that. He does have a history of such. His diabetes is well controlled and he monitors his glucose at home with no significant highs or lows recently. Appetite has been as per usual. No change in weight. He has intermittent lower extremity edema which is unchanged. Except as documented, all other systems were reviewed and are negative. [facility] Past Medical History Medical History Adenocarcinoma of sigmoid colon (~07/28/18) Status post low anterior resection and chemotherapy. Atrial fibrillation Chronic anemia Congestive heart failure Echocardiogram in January 2020 showed mildly enlarged left ventricle with mild reduction left ventricular function with an EF of 45 to 50% as well as significant biatrial dilatation and small amounts of atrial, mitral, and tricuspid regurgitation. 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 Metabolic syndrome X Mixed hyperlipidemia Osteomyelitis Status post amputation of left 2nd toe. Peripheral vascular disease Type 2 diabetes mellitus Surgical History Surgical History History of amputation of lesser toe of left foot Treatment of osteomyelitis in 10/2013 & 01/2015. History of partial colectomy (~07/2017) Hand assisted laparoscopic low anterior resection with colorectal anastomosis for treatment of colon cancer. History of skin graft To poorly healing wound of the lower extremity. Port-A-Cath in place Family History Family History Mother Diabetes mellitus Father Cerebrovascular accident Other Family history of arthritis Family history of cardiovascular disease Family history of heart disease in male family member before age 55 Family history of thyroid disease Social History Social History (Updated 05/15/20 @ 22:38 by Tracie You PA-C) Social History: The patient lives alone in his own apartment in [place]. He is single and never had children. 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 Lifelong nonsmoker. No alcohol or illicit substance use. Very active in his yazidi. He
[2020-05-15 19:56] LABS: Alanine Aminotransferase 33 U/L (4-50); Albumin Level 3.7 g/dL (3.5-5.1); Alkaline Phosphatase 215 U/L (38-126); Aspartate Amino Transferase 38 U/L (17-59); Bilirubin,Total 0.8 mg/dL (0.2-1.3); Magnesium 1.7 mg/dL (1.6-2.3)
[2020-05-15 20:57] LABS: Hemoglobin A1C 5.9 % (<5.7)
[2020-05-15] MEDS: METOPROLOL TARTRATE 50 MG TAB PO (21:15)
[2020-05-15] MEDS: WARFARIN (*PBKC) 2.5 MG TABLET PO (21:16)
[2020-05-15] MEDS: WARFARIN (*PBKC) 5 MG TABLET PO (21:16)
[2020-05-15] MEDS: FUROSEMIDE INJ 40 MG/4 ML VIAL IV PUSH (21:17)
[2020-05-15 21:51] LABS: Glucose Point of Care 119 (65-105)
[2020-05-16] VITALS (18 sets, daily range): BP systolic 93–159; BP diastolic 65–92; PULSE 67–135; RESP 14–20; TEMP 36–36.6; O2SAT 96–99
[2020-05-16] MEDS: CIPROFLOXACIN 500 MG TAB PO ×3 (00:09→20:41)
[2020-05-16] MEDS: FERROUS SULFATE 324 MG TABLET PO ×3 (00:14→20:42)
[2020-05-16] MEDS: SIMVASTATIN 10 MG TABLET PO ×2 (00:14→20:41)
[2020-05-16 04:02] LABS: Free T4 Free Thyroxine Reflex 1.46 ng/dL (0.78-2.19)
[2020-05-16 05:08] LABS: Total Triiodothyronine (T3) 1.03 NG/ML (0.97-1.69)
[2020-05-16 05:10] LABS: INR 2.5; Prothrombin Time 27.7 Seconds (11.1-14.7)
[2020-05-16 05:14] LABS: Anion Gap 5 mmol/L (8-16); Blood Urea Nitrogen 34 mg/dL (9-20); Calcium 8.6 mg/dL (8.4-10.2); Carbon Dioxide 27 mmol/L (22-30); Chloride 107 mmol/L (98-107); Estimated CRCL calculation 65 ml/min; Estimated Glomerular Filt Rate 60; Glucose 84 mg/dL (75-110); Potassium 3.7 mmol/L (3.4-5.0); Sodium 139 mmol/L (137-145)
[2020-05-16] MEDS: FUROSEMIDE INJ 40 MG/4 ML VIAL IV PUSH ×2 (07:57→20:44)
[2020-05-16] MEDS: allopurinoL 300 MG TABLET PO (07:57)
[2020-05-16] MEDS: CYANOCOBALAMIN 500 MCG TABLET PO (07:57)
[2020-05-16] MEDS: lisinopriL 5 MG TABLET PO (07:58)
[2020-05-16] MEDS: FLUTICASONE PROPIONATE 0.05% NA SPR 16 GM BTL (*BKC) 2 SPRAY NASAL (07:58)
[2020-05-16] MEDS: METOPROLOL TARTRATE 50 MG TAB PO ×2 (07:58→20:42)
[2020-05-16 08:10] LABS: Glucose Point of Care 91 (65-105)
--- NOTE | 2020-05-16 15:02 | PM.IMPN ---
Progress Note: A&P Assessment and Plan (1) Atrial fibrillation with rapid ventricular response: Code(s): I48.91 - Unspecified atrial fibrillation Status: Acute Assessment and Plan: The patient presented to the emergency department today from Dr. Sher's office (where he was having a preop EKG and echocardiogram) with atrial fibrillation with rapid ventricular response. He was placed on a Cardizem drip with improvement in his rate in his since been discontinued this morning. Telemetry at this time ranges between 103-118 bpm. TSH normal. He is on Coumadin with a therapeutic INR. Cardiology is consulted and their input is greatly appreciated. Continue monitoring. (2) Congestive heart failure: Code(s): I50.9 - Heart failure, unspecified Status: Chronic Assessment and Plan: Acute on chronic systolic CHF exacerbation. Chest x-ray shows mild pulmonary vascular congestion and he does have pitting edema to his lower extremities He is on IV Lasix 40 mg q.12 hours Continue monitoring fluid status. Cardiology was consulted their input is greatly appreciated. (3) Type 2 diabetes mellitus: Code(s): E11.9 - Type 2 diabetes mellitus without complications Status: Inactive Assessment and Plan: Diabetes is well controlled with a recent hemoglobin A1c a 6.1% in January 2020. Initiate sliding scale insulin, Accu-Cheks, and hypoglycemic protocol. (4) Chronic anemia: Code(s): D64.9 - Anemia, unspecified Status: Inactive Assessment and Plan: He has chronic anemia which is stable on review of previous labs. (5) Essential hypertension: Code(s): I10 - Essential (primary) hypertension Status: Inactive Assessment and Plan: Blood pressure 106/85. Stable. Blood pressures were reviewed and is noted that they had been running soft recently and in fact his lisinopril was cut in half in the last couple of months. (6) Thrombocytopenia: Code(s): D69.6 - Thrombocytopenia, unspecified Status: Acute Assessment and Plan: Today he has mild thrombocytopenia and we will just monitor that for now. 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 Time Spent With Patient Time with patient: 25 - 35 minutes Subjective Date/time seen: 05/16/20 15:02 Interval history: Date of service 05/16/2020: Patient is feeling well today. He cannot tell that he is in AFib. He denies any chest pain, shortness of breath, cough at this time. He does report some leg swelling which is chronic for him but possibly worse today. Denies any nausea, vomiting, abdominal pain, fever, chills, foot pain, calf pain, or any other symptoms at this time. He was trying to get cardiac clearance to have further procedures done on his foot due to osteomyelitis. Review of Systems Review of Systems: All systems reviewed & are unremarkable except as noted in HPI and below Exam Narrative: Exam Narrative: General: 69-year-old man sitting up in bed. Appears comfortable. In no acute distress. Skin: No jaundice or cyanosis. Good skin turgor. Neck: Full range of motion. Supple. Respiratory: Rales noted to bilateral lower
--- NOTE | 2020-05-16 17:03 | PM.CNCAR ---
Assessment and Plan Additional Plan 69-year-old man with chronic atrial fibrillation taking beta-dinora and warfarin with suboptimal heart rate control although with this he is asymptomatic. He does not appear to be very unstable hemodynamically but the decision was made to hospitalize him yesterday afternoon for control. This modest advancing his beta dinora really has not changed things very much. I am going to add oral diltiazem to this regimen at 180 mg daily. I will give him 1 dose this evening in then started daily tomorrow morning. Will follow his telemetry trends with you and hopefully this will provide better rate control. I do not anticipate him having to be in the hospital for a long time with this. Juvenal Ramírez MD [facility] History of Present Illness History of Present Illness Consult date/time: 05/16/20 17:03 Consult reason: atrial fibrillation Reason For Visit: AGUILAR/hyperkalemia/Chest pain Narrative: This is a 69-year-old man that I am seeing at the request of the hospitalist today he was admitted yesterday afternoon apparently because he was found to have atrial fibrillation with rapid ventricular response when he presented to the office for an EKG that was ordered by his physician. Patient was sent to the office for an EKG as part of his preoperative cardiac evaluation. Apparently he has some need for with podiatry surgery. In any event he is known to have chronic atrial fibrillation and in the past was taking metoprolol and digoxin for control. We saw this patient in December of 2020 he was also admitted with AFib with RVR. He was treated with metoprolol, digoxin was discontinued and his heart rate seemed to be fairly well controlled. He is systemically anticoagulated with warfarin. Interestingly the patient was appears to be completely asymptomatic with his atrial fibrillation despite the rapid response. He denies any awareness of tachycardia or palpitations denies any shortness of breath or chest pain. Because of the RVR however he was sent to the emergency room and he has then admitted. His metoprolol dosage was increased somewhat from 20/5 Q 12-50 Q 12 he is currently hospitalized in room 232 and he is still relatively tachycardic at times. Echocardiogram that was done during the last admission here several months ago apparently demonstrated mild left ventricular systolic dysfunction with an ejection fraction of 40-45%. Review of Systems Constitutional: Constitutional: Reports no additional constitutional complaints Eyes: Eyes: Reports no additional eye complaints ENT: Reports system reviewed and no additional complaints, except as documented Cardiovascular: Cardiovascular: Reports as per HPI Respiratory: Respiratory: Reports no additional respiratory complaints Gastrointestinal: Gastrointestinal: Reports no additional gastrointestinal complaints Musculoskeletal: Musculoskeletal: Reports myalgias Integumentary/Breasts: Skin/Breast: Reports system reviewed and no additional complaints, except as docu Neurologic: Reports system reviewed and no additional complaints, except as documented Endocrine: Endocrine: Reports no additional endocrine complaints Hematologic/Lymphatic: Hematologic/Lymphatic: Reports no additional hematologic/lymphatic complaints Allergic/Immunologic: Allergic/Immunologic: Reports no additional allergic/immunologic complaints [facility] Past Medical History Medical History Adenocarcinoma of sigmoid colon (~07/28/18) Status post low anterior resection and chemotherapy. Atrial fibrillation Chronic anemia Congestive heart failure Echocardiogram in January 2020 showed mildly enlarged left ventricle with mild reduction left ventricular function with an EF of 45 to 50% as well as significant biatrial dilatation and small amounts of atrial, mitral, and tricuspid regurgitation. Diabetic peripheral neuropathy Essential hypertension Gout L
[2020-05-16] MEDS: WARFARIN (*PBKC) 5 MG TABLET PO (17:43)
[2020-05-16] MEDS: dilTIAZem HCL CD 180 MG CAP.ER.24H PO (17:44)
[2020-05-16 18:04] LABS: Glucose Point of Care 106 (65-105)
[2020-05-16 21:29] LABS: Glucose Point of Care 134 (65-105)
[2020-05-17] VITALS (10 sets, daily range): BP systolic 98–148; BP diastolic 50–111; PULSE 52–114; RESP 16–18; TEMP 36.2–36.6; O2SAT 97–100
[2020-05-17 05:33] LABS: Hematocrit 39.7 % (42.0-52.0); Hemoglobin 13.2 g/dL (14.0-18.0); Mean Corpuscular HGB Conc 33.2 g/dl (32-36); Mean Corpuscular Volume 96.1 fl (80-100); Mean Platelet Volume 10.6 fl (7.4-10.4); Platelet Count Result 119 k/mm3 (150-375); Red Blood Count 4.13 M/mm3 (4.6-6.20); Red Cell Distribution Width 17.3 % (11.5-14.5); White Blood Count 7.3 K/mm3 (4.5-10.0)
[2020-05-17 05:42] LABS: INR 2.5; Prothrombin Time 27.5 Seconds (11.1-14.7)
[2020-05-17 05:48] LABS: Anion Gap 6 mmol/L (8-16); Blood Urea Nitrogen 34 mg/dL (9-20); Carbon Dioxide 29 mmol/L (22-30); Chloride 102 mmol/L (98-107); Estimated CRCL calculation 65 ml/min; Estimated Glomerular Filt Rate 60; Glucose 94 mg/dL (75-110); Magnesium 1.6 mg/dL (1.6-2.3); Potassium 3.5 mmol/L (3.4-5.0); Sodium 137 mmol/L (137-145)
[2020-05-17 08:38] LABS: Glucose Point of Care 98 (65-105)
--- NOTE | 2020-05-17 08:55 | PM.DS ---
DS: Admitting Diagnosis Admitting Diagnosis Admitting Diagnosis: Abnormal EKG DS: Discharge Diagnosis Discharge Diagnosis (1) Atrial fibrillation with rapid ventricular response: Code(s): I48.91 - Unspecified atrial fibrillation Status: Acute Assessment and Plan: The patient presented to the emergency department today from Dr. Sher's office (where he was having a preop EKG and echocardiogram) with atrial fibrillation with rapid ventricular response. Patient's Cardizem drip was discontinued and cardiology adjusted his beta-dinora and added Cardizem with improvement of his heart rate. TSH normal. He is on Coumadin with a therapeutic INR. He was stable from a cardiac standpoint and discharged to follow-up in the office for further evaluation. (2) Congestive heart failure: Code(s): I50.9 - Heart failure, unspecified Status: Chronic Assessment and Plan: Acute on chronic systolic CHF exacerbation. Chest x-ray shows mild pulmonary vascular congestion and he does have pitting edema to his lower extremities Patient's leg swelling improved and Lasix were discontinued any was placed on his home medications. (3) Type 2 diabetes mellitus: Code(s): E11.9 - Type 2 diabetes mellitus without complications Status: Inactive Assessment and Plan: Diabetes is well controlled with a recent hemoglobin A1c a 6.1% in January 2020. Continue home meds. (4) Chronic anemia: Code(s): D64.9 - Anemia, unspecified Status: Inactive Assessment and Plan: He has chronic anemia which is stable on review of previous labs. (5) Essential hypertension: Code(s): I10 - Essential (primary) hypertension Status: Inactive Assessment and Plan: Blood pressure 110/82. Stable. Blood pressures were reviewed and is noted that they had been running soft recently and in fact his lisinopril was cut in half in the last couple of months. (6) Thrombocytopenia: Code(s): D69.6 - Thrombocytopenia, unspecified Status: Acute Assessment and Plan: Today he has mild thrombocytopenia and we will just monitor that for now. 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 DS: Summary Hospital Course Reason for hospitalization: A 69-year-old man with a history of atrial fibrillation on warfarin, mild reduced EF from January 2020, hypertension, diabetes mellitus, who presents to the emergency room after being found to have AFib RVR in the cardiology office. He went to the office to get cardiac clearance for an upcoming surgery and was sent in for further evaluation. Initial vitals showed T was afebrile, tachycardic at 1:24 a.m., increased respiratory rate at 31, blood pressure 115/78, oxygen saturation 99% on room air. Initial labs showed normocytic anemia with a hemoglobin of 12, hematocrit 39, thrombopenia at 126, normal at 2.6, BMP showed baseline creatinine 1.3, BUN 34, elevated BNP at 5480. Hemoglobin A1c 5.9%. Chest x-ray shows cardiomegaly, mild increased interstitial pattern in the lower lung zones most likely congestive heart failure related mild pulmonary edema versus less likely pneumonia. Was admitted to the
--- NOTE | 2020-05-17 08:58 | PM.PNCARD ---
Progress Note: A&P Additional Plan 69-year-old man with: Chronic atrial fibrillation he has been asymptomatic and hemodynamically not compromised. There was enough concern regarding heart rate control to hospitalize him and he is now doing well with the addition of diltiazem to his regimen. He has been anticoagulated with warfarin his INR is therapeutic and being managed by his PCP. He is stable for discharge this morning. I will see that the office contact him next week to arrange for follow-up. Juvenal Ramírez MD [facility] Subjective Date/time seen: Date of service: 05/17/20 08:58 Interval history: Follow-up visit in this 69-year-old man with: Chronic atrial fibrillation admitted to the hospital for rapid ventricular response to provide better rate control. He is asymptomatic this morning. Diltiazem 180 mg daily has been added to his regimen. Telemetry demonstrates reasonable heart rate control this morning. He remains asymptomatic Exam Const: General: comfortable and no acute distress HENMT: Mouth: Yes moist mucous membranes Eyes: Sclera: sclerae normal Pupils: Equal, round and reactive pupils present Neck: Neck: supple and no JVD Thyroid: thyroid normal Resp: Effort & Inspection: normal respiratory effort Auscultation: clear to auscultation bilaterally Cardio: Rhythm: abnormal rhythm irregularly irregular GI: GI Palp: Yes Soft to palpation Auscultation: normal bowel sounds Skin: General skin exam: normal color Neuro: Cognition (Neuro): normal cognition Extrem: General: normal to inspection Objective Data Vital Signs Vital Signs: Vital Signs - 24 hr 05/16/20 10:00 05/16/20 12:00 05/16/20 14:00 Temperature 36.2 C L Pulse Rate 86 91 119 H Respiratory Rate 18 Blood Pressure 112/92 H Pulse Oximetry 98 05/16/20 16:00 05/16/20 17:48 05/16/20 20:00 Temperature 36.3 C L 36.6 C Pulse Rate 68 133 H 103 H Respiratory Rate 20 16 Blood Pressure 159/81 H 93/68 L Pulse Oximetry 98 96 05/16/20 20:42 05/16/20 21:31 05/17/20 00:00 Temperature 36.2 C L Pulse Rate 119 H 86 Respiratory Rate 18 Blood Pressure 121/74 98/50 L Pulse Oximetry 97 05/17/20 02:00 05/17/20 04:00 05/17/20 06:00 Temperature 36.5 C Pulse Rate 97 93 86 Respiratory Rate 16 Blood Pressure 108/57 L Pulse Oximetry 99 05/17/20 07:33 05/17/20 07:35 05/17/20 07:36 Temperature 36.4 C 36.6 C 36.6 C Pulse Rate 71 52 L 66 Respiratory Rate 16 18 16 Blood Pressure 110/82 148/111 H 110/85 Pulse Oximetry 100 100 98 05/17/20 07:37 Temperature 36.6 C Pulse Rate 71 Respiratory Rate 16 Blood Pressure 110/82 Pulse Oximetry 100 Intake/Output Intake/Output: Intake & Output 05/14/20 05/15/20 05/16/20 05/17/20 23:59 23:59 23:59 23:59 Intake Total 240 1760 570 Output Total 700 4800 1750 [facility] [phone] Meds/Results Medications: Active Medications Generic Name Dose Route Start Last Admin Trade Name Freq PRN Reason Stop Dose Admin Acetaminophen 650 mg 05/15/20 16:14 Acetaminophen 325 Mg Tablet PO Q4H PRN Mild Pain (1-3) or Fever Hydrocodone Bitart/Acetaminophen 1 tab 05/15/20 16:14 Hydrocodone/Acetaminophen (*Crx) 5-325 Mg Tablet PO Q4H PRN Pain Rated 4-6 Allopurinol 300 mg 05/16/20 08:00 05/16/20 07:57 Allopurinol 300 Mg Tablet PO 300 mg DAILY@0800 SOCRATES Administration Ciprofloxacin 500 mg 05/16/20 09:00 05/16/20 20:41 Ciprofloxacin 500 Mg Tab PO 05/19/20 23:59 500 mg Q12HR SOCRATES Administration Cyanocobalamin 500 mcg 05/16/20 09:00 05/16/20 07:57 Cyanocobalamin 500 Mcg Tablet PO 500 mcg DAILY SOCRATES Administration Dextrose 12.5 gm 05/15/20 19:14 Dextrose 50% 25 Gm/50 Ml Syringe IV PUSH PRN PRN Hypoglycemia Protocol Diltiazem HCl 180 mg 05/16/20 17:05 05/16/20 17:44 Diltiazem Hcl Cd 180 Mg Cap.Er.24h PO 180 mg QAM SOCRATES Administration Ferrous Sulfate 324 mg 05/15/20 23:0
[2020-05-17] MEDS: CIPROFLOXACIN 500 MG TAB PO (09:58)
[2020-05-17] MEDS: FUROSEMIDE 40 MG TABLET PO (09:58)
[2020-05-17] MEDS: allopurinoL 300 MG TABLET PO (09:58)
[2020-05-17] MEDS: CYANOCOBALAMIN 500 MCG TABLET PO (09:58)
[2020-05-17] MEDS: lisinopriL 5 MG TABLET PO (09:58)
[2020-05-17] MEDS: METOPROLOL TARTRATE 50 MG TAB PO (09:59)
[2020-05-17] MEDS: FERROUS SULFATE 324 MG TABLET PO (09:59)
[2020-05-17] MEDS: dilTIAZem HCL CD 180 MG CAP.ER.24H PO (09:59)
[2020-05-17] MEDS: FLUTICASONE PROPIONATE 0.05% NA SPR 16 GM BTL (*BKC) 2 SPRAY NASAL (09:59)
== END 2020-05-17 10:41 | disposition home or self-care (01) ==
LOC: ANHED 16:41 → ANHIMU 17:10
PROVIDERS: Internal Medicine Cardiovascular Disease; Physician Assistant; Admitting Provider Family Medicine; Emergency Provider Emergency Medicine; PCP Family Medicine; Visit Provider Physician Assistant
DX: I48.91 Unspecified atrial fibrillation (principal); I11.0 Hypertensive heart disease with heart failure; I50.9 Heart failure, unspecified; D64.9 Anemia, unspecified; D69.6 Thrombocytopenia, unspecified; E11.42 Type 2 diabetes mellitus with diabetic polyneuropathy; Z79.01 Long term (current) use of anticoagulants; Z79.4 Long term (current) use of insulin
CPT/HCPCS: 36415; 71046; 80048; 80076; 82948; 83036; 83735; 83880; 84439; 84443; 84480; 85025; 85027; 85055; 85610; 85730; 93005; 96365; 96366; 96375; 96376; 99285; A9270; G0378; J1940

== ENCOUNTER 2020-05-27 10:34 | Outpatient (CLI) | payer MEDICARE, MEDICAID, SELFPAY ==
[2020-05-27 12:35] LABS: INR 2.5; Prothrombin Time 27.5 Seconds (11.1-14.7)
[2020-05-27 12:36] LABS: Partial Thromboplastin Time 50.1 SECONDS (22.3-36.8)
== END 2020-05-27 10:35 | disposition home or self-care (01) ==
LOC: ANHLAB 10:35
PROVIDERS: PCP Family Medicine; Visit Provider Family Medicine
DX: Z79.01 Long term (current) use of anticoagulants (principal)
CPT/HCPCS: 36415; 85610; 85730

== ENCOUNTER 2020-06-30 09:30 | Outpatient (CLI) | payer MEDICARE, MEDICAID, SELFPAY ==
--- NOTE | ~2020-06-30 | CT_ITS ---
EXAMINATION: CT abdomen pelvis w con DATE: 06/30/2020 10:06 INDICATION: Colon cancer restaging TECHNIQUE: Computed tomography (CT) of the abdomen and pelvis was performed without intravenous contr ast. Automated exposure control and iterative reconstruction technique were employed. Exam dose: 116 7.81 mGy-cm total exam DLP. COMPARISON: 03/2020 CT chest abdomen pelvis 12/03/2019 CT chest abdomen pelvis FINDINGS: There is cardiomegaly. No pericardial or pleural effusion. Mild discoid atelectasis or scarring in the left lower lobe. No infiltrate or consolidation is noted at the lung bases. Small sliding hiatal hernia. There is surface nodularity of the liver suggesting cirrhosis. Medial segment left hepatic lesion braulio sures approximately 11 mm compared to 16 mm on 12/03/2019. There are numerous stones at the dependent aspect of the gallbladder, consistent with cholelithiasis. No gallbladder wall thickening or pericholecystic fluid or fat stranding. No bile duct or pancreatic duct dilatation. No pancreatic mass lesion or calcification. 2.5 cm splenic cyst. Normal morphology of the adrenal glands. Multiple bilateral renal cysts, measuring up to 5.6 cm on the right, 3.9 cm on the left. No urinary tract calculus or hydroureteronephrosis. The urinary bladder is unremarkable. There is moderate prostate enlargement. Bilateral fat-containing inguinal hernias, minimal on the right, larger on the left. There is calcification of the abdominal aorta and iliac arteries. No abdominal aortic aneurysm. There are chronic shotty nonenlarged periaortic and aortocaval, iliac and inguinal nodes lymph nodes. A suture line is noted at the distal sigmoid colon. No bowel obstruction, bowel wall thickening, pneu matosis or intraperitoneal free air. There is severe degenerative disc disease throughout the lumbar and lumbosacral spine. Degenerative s purring of the lower thoracic spine. IMPRESSION: Small sliding hiatal hernia Cirrhosis Cholelithiasis Bilateral renal cysts Distal sigmoid colon resection; history of colon cancer Subtle approximately 11 mm medial segment left hepatic lesion compared to 16 mm size on 12/03/2019 Reviewed, dictated and finalized at [facility]. Reviewed, dictated and finalized at [facility].
== END 2020-06-30 09:31 | disposition home or self-care (01) ==
PROVIDERS: PCP Family Medicine; Visit Provider Internal Medicine Hematology & Oncology
DX: C18.8 Malignant neoplasm of overlapping sites of colon (principal); K44.9 Diaphragmatic hernia without obstruction or gangrene; K74.69 Other cirrhosis of liver; N28.1 Cyst of kidney, acquired; K80.20 Calculus of gallbladder without cholecystitis without obstruction
CPT/HCPCS: 74177; Q9967

== ENCOUNTER 2020-08-19 08:46 | Outpatient (CLI) | payer MEDICARE, MEDICAID, SELFPAY ==
[2020-08-19 12:00] LABS: Cholesterol 153 mg/dL (0-200); HDL Direct 35 mg/dL; Hemoglobin A1C 5.5 % (<5.7); Triglycerides 120 mg/dL (<150)
[2020-08-19 12:11] LABS: LDL Cholesterol Direct 69 mg/dL
[2020-08-19 12:31] LABS: Prostate Specific Antigen 1.5 ng/mL (< OR = 4.0)
== END 2020-08-19 08:47 | disposition home or self-care (01) ==
LOC: ANHLAB 08:51
PROVIDERS: PCP Family Medicine; Visit Provider Internal Medicine Hematology & Oncology
DX: E11.59 Type 2 diabetes mellitus with other circulatory complications (principal); E78.2 Mixed hyperlipidemia; E88.81 Metabolic syndrome and other insulin resistance; I10 Essential (primary) hypertension; Z12.5 Encounter for screening for malignant neoplasm of prostate
CPT/HCPCS: 36415; 80061; 83036; 84153; 84443; G0103

== ENCOUNTER 2020-09-23 08:54 | Outpatient (CLI) | payer MEDICARE, MEDICAID, SELFPAY ==
--- NOTE | ~2020-09-23 | CT_ITS ---
EXAMINATION: CT abdomen pelvis w con DATE: 09/23/2020 09:52 INDICATION: Malignant colon neoplasm TECHNIQUE: Computed tomography (CT) of the abdomen and pelvis was performed with 100 cc Omnipaque 350 intravenous contrast. Automated exposure control and iterative reconstruction technique were employe d. Exam dose: 1281.00 mGy-cm total exam DLP. COMPARISON: 06/30/2020 CT abdomen pelvis 03/17/2020 CT chest abdomen pelvis 12/03/2019 CT chest abdomen FINDINGS: Minimal atelectasis or scarring at the base of the left lower lobe. Cardiomegaly. No pericardial or pleural effusion. There are multiple stones in the dependent aspect of the gallbladder. No gallbladder wall thickening or pericholecystic fat stranding or fluid. No bile duct dilatation. Surface nodularity of the liver, suggesting cirrhosis. No discrete hepatic space-occupying mass lesio n is evident. There are scattered hepatic and splenic calcified granulomas consistent with old granul omatous disease. 2.5 cm splenic cyst. Normal morphology of the adrenal glands. Multiple bilateral renal cysts are again noted, measuring up to 5.6 cm on the right, 4.3 cm on the le ft. No urinary tract calculus or hydroureteronephrosis. The urinary bladder appears normal. Normal caliber of the abdominal aorta. No intraperitoneal or retroperitoneal or pelvic mass lesion or adenopathy or ascites. Small bilateral fat-containing inguinal hernias. Small sliding hiatal hernia. Normal appendix. Suture line of the sigmoid colon consistent with prior sigmoid colon resection. No bowel obstruction, bowel wall thickening, pneumatosis or intraperitoneal free air. Severe degenerative disc disease throughout the lumbar and lumbosacral spine. No suspicious osteolyti c or osteoblastic lesions. IMPRESSION: Status post sigmoid colon resection for history of colon cancer; no recurrence or metast atic disease is evident Cirrhosis of the liver Splenic cyst and bilateral renal cysts Small sliding hiatal hernia Normal appendix Reviewed, dictated and finalized at [facility]. Reviewed, dictated and finalized at [facility]. IMPRESSION: Status post sigmoid colon resection for history of colon cancer; n o recurrence or metastatic disease is evident Cirrhosis of the liver Splenic cyst and bilateral renal cysts Small sliding hiatal hernia Normal appendix
== END 2020-09-23 08:55 | disposition home or self-care (01) ==
PROVIDERS: PCP Family Medicine; Visit Provider Internal Medicine Hematology & Oncology
DX: C18.8 Malignant neoplasm of overlapping sites of colon (principal); K74.69 Other cirrhosis of liver; N28.1 Cyst of kidney, acquired; K44.9 Diaphragmatic hernia without obstruction or gangrene
CPT/HCPCS: 74177; Q9967

== ENCOUNTER 2020-10-21 08:20 | Outpatient (CLI) | payer MEDICARE, MEDICAID, SELFPAY ==
[2020-10-21 12:02] LABS: INR 2.3
== END 2020-10-21 08:21 | disposition home or self-care (01) ==
LOC: ANHLAB 08:22
PROVIDERS: PCP Family Medicine; Visit Provider Physician Assistant
DX: Z79.01 Long term (current) use of anticoagulants (principal)
CPT/HCPCS: 36415; 85610

== ENCOUNTER 2020-11-03 15:43 | Outpatient (CLI) | payer MEDICARE, MEDICAID, SELFPAY ==
[2020-11-03 16:39] LABS: INR 2.3; Prothrombin Time 24.3 Seconds (11.1-14.7)
== END 2020-11-03 15:44 | disposition home or self-care (01) ==
PROVIDERS: PCP Family Medicine; Visit Provider Dentist
DX: Z79.01 Long term (current) use of anticoagulants (principal)
CPT/HCPCS: 36415; 85610

== ENCOUNTER → 2020-11-26 03:21 | Outpatient (CLI) | payer MEDICARE, MEDICAID, SELFPAY ==
[2020-11-26 22:41] LABS: SARS-CoV-2 RNA PCR Negative
== END ==
PROVIDERS: PCP Family Medicine; Visit Provider Physician Assistant Medical
DX: R68.89 Other general symptoms and signs (principal); Z20.822 Contact with and (suspected) exposure to COVID-19
CPT/HCPCS: C9803; U0003; U0005

== ENCOUNTER 2020-12-02 15:39 | Outpatient (CLI) | payer MEDICARE, MEDICAID, SELFPAY ==
--- NOTE | ~2020-12-02 | CT_ITS ---
EXAMINATION: CT chest abdomen pelvis w con EXAM DATE: 12/02/2020 16:30 INDICATION: Localized mass swelling lump on left side of abdomen. Colon cancer. TECHNIQUE: Spiral CT of the chest, abdomen and pelvis was performed following intravenous injection o f 100 mL Omnipaque 350. Axial, coronal and sagittal images chest, abdomen and pelvis were reviewed. Coronal maximum intensity pixel images of chest reviewed. The dose-length product (DLP) for this ex amination was 2023.53 mGy-cm. The exposure was tailored according to patient size (auto mA exposure control), and iterative reconstruction (ASIR) was used as additional dose reduction technique. Compar helen is made to prior examination from 09/23/[address], chest abdomen pelvis CTs from 03/17 and 12/03/2019 FINDINGS: CHEST: There is a left pectoralis major masslike region measuring about 4 x 6 cm with differential di agnosis including intramuscular hematoma, hemorrhagic intramuscular metastasis. This is below the lef t-sided portacatheter hub level. Mildly aneurysmal ascending aorta at 4.8 cm. Interval development of 6 and 8mm left lower lobe nodules on images 87 and 91, could be metastatic disease or granulomas. T here are no pleural or pericardial effusions. Tracheobronchial tree is patent. Pathologically enl arged right axillary lymph node measuring 2.3 x 1.5 cm, mild interval increase in size compared to a chest CT from March There is no pneumothorax. Cardiomegaly. There is mild coronary arterial natividad cification, arterial sclerosis. ABDOMEN PELVIS: Nodular liver contour consistent with cirrhosis. There is vague 5 cm hypodensity in t he left liver lobe medial segment, same location as a previously seen lesion last November, likely p rogression of metastatic disease. Splenic fluid density 2 cm lesion likely benign. Adrenal glands and pancreas are unremarkable. There are gallstones within an otherwise unremarkable gallbladder. No evidence of obstructive biliary dise ase. Bilateral renal lesions likely cysts up to 5.5 cm on the right. No hydronephrosis. Kidneys enha nce symmetrically. The prostate is unremarkable. The bladder is unremarkable. There is no retroper itoneal or pelvic lymphadenopathy. There is mild scattered arteriosclerotic disease. Small bilatera l inguinal fat-containing hernias. There are no findings to suggest appendicitis. The stomach and small bowel are unremarkable. There is moderate amount of colonic stool. There is rectosigmoid anastomosis site intact and without region al wall thickening. No free intraperitoneal gas. There are no osteoblastic or osteolytic lesions identified. IMPRESSION: 1. Left pectoralis major hematoma or hemorrhagic metastasis. 2. Development of 2 left lower lobe nodules, possible metastatic disease. 3. Right axillary pathological lymph node with mild increase in size. 4. Redevelopment of left liver lobe medial segmental metastasis. 5. Cardiomegaly. Ascending aortic aneurysm. 6. Cirrhosis. 7. Cholelithiasis. Reviewed, dictated and finalized at [facility].
[2020-12-02 16:58] LABS: Hematocrit 33.8 % (42.0-52.0); Hemoglobin 11.2 g/dL (14.0-18.0); Mean Corpuscular HGB Conc 33.1 g/dl (32-36); Mean Corpuscular Hemoglobin 34.5 pg (26-34); Mean Platelet Volume 9.5 fl (7.4-10.4); Platelet Count Result 142 k/mm3 (150-375); Red Blood Count 3.25 M/mm3 (4.6-6.20); Red Cell Distribution Width 15.1 % (11.5-14.5); White Blood Count 10.6 K/mm3 (4.5-10.0)
[2020-12-02 17:10] LABS: Alanine Aminotransferase 35 U/L (4-50); Alkaline Phosphatase 171 U/L (38-126); Anion Gap 7 mmol/L (8-16); Aspartate Amino Transferase 41 U/L (17-59); Bilirubin,Total 0.9 mg/dL (0.2-1.3); Blood Urea Nitrogen 40 mg/dL (9-20); Calcium 9.2 mg/dL (8.4-10.2); Carbon Dioxide 27 mmol/L (22-30); Chloride 105 mmol/L (98-107); Estimated Glomerular Filt Rate 60; Glucose 109 mg/dL (65-110); Potassium 4.5 mmol/L (3.4-5.0); Sodium 139 mmol/L (137-145)
[2020-12-02 17:13] LABS: INR 2.6; Prothrombin Time 27.3 Seconds (11.1-14.7)
[2020-12-04 14:51] LABS: Carcinoembryonic Antigen 4.4 ng/mL (0.0-3.0)
== END 2020-12-02 15:40 | disposition home or self-care (01) ==
PROVIDERS: PCP Family Medicine; Visit Provider Family Medicine
DX: T14.8XXA Other injury of unspecified body region, initial encounter (principal); Z85.9 Personal history of malignant neoplasm, unspecified; K76.0 Fatty (change of) liver, not elsewhere classified; K80.20 Calculus of gallbladder without cholecystitis without obstruction; I51.7 Cardiomegaly; R91.8 Other nonspecific abnormal finding of lung field
CPT/HCPCS: 36415; 71260; 74177; 80053; 82378; 85027; 85610; Q9967

== ENCOUNTER 2020-12-16 07:52 | Outpatient (CLI) | payer MEDICARE, MEDICAID, SELFPAY ==
--- NOTE | ~2020-12-16 | PE_ITS ---
EXAMINATION: PET skull to mid thigh DATE: 12/16/2020 10:08 INDICATION: Overlapping malignant neoplasm of the colon TECHNIQUE: Blood glucose level was mg/dL. 10.021 mCi of 18-fluorodeoxyglucose (18-FDG) was administer ed i.v. Low dose computed tomography (CT) images were acquired from the base of the brain to the prox imal thighs for attenuation correction and anatomic localization. Positron emission tomography (PET) images were acquired in the same distribution beginning 64 minutes after injection. Images including fused PET/CT images were reconstructed in axial, coronal, and sagittal planes. Automated exposure con trol technique was employed. The dose-length product was 1165.30mGy-cm. COMPARISON: CT dated 12/02/2020 and PET/CT dated 08/16/2019 FINDINGS: Head/neck: There is symmetric increased activity in the oral cavity, palatine tonsils, laryngeal muscles and ocu lar muscles without CT correlate, likely physiologic. No pathologically enlarged cervical lymphadenop athy or suspicious foci of increased FDG uptake in the visualized head or neck. Chest: Left subclavian central venous port catheter with distal tip in the high right atrium. Interval decre ase in the previously seen thickening of the inferolateral aspect of the left pectoralis major muscle with only minimal nonfocal associated FDG uptake with maximal SUV of 2.7. Unchanged mild discoid ate lectasis in the left lower lobe. No evident FDG uptake associated with the previously noted 8 mm nodu les in the left lower lobe. No new, enlarging or FDG avid pulmonary nodules. No pneumonia, pulmonary edema or pleural effusion. Cardiomegaly. Aortic valve and atherosclerotic coronary artery calcificati ons. No pericardial effusion. Persistent mild right axillary lymphadenopathy, the largest measuring 2 .7 x 1.3 x 3.3 cm with maximal SUV of 2.5. At the time of the prior PET study the lymph node measured 4.3 x 3.1 x 1.9 cm with maximal SUV of 4.5. No other pathologically enlarged or FDG avid thoracic ly mphadenopathy. Abdomen/pelvis/proximal thighs: Small sliding-type hiatal hernia. Physiologic renal accumulation and excretion of FDG activity in the kidneys, bladder and along portions of ureters. There are photopenic defects associated with the ramón ateral large renal cysts measuring up to 5.2 cm on the right and 4.5 cm on the left. Cirrhotic liver with marked FDG uptake associated with poorly defined subtly hypodense approximately 5-6 cm mass in s egment 4A of the liver with maximal SUV of 16.6. No evident FDG uptake associated with a 2.5 cm fluid attenuation splenic cyst. The pancreas and bilateral adrenal glands are normal. Multiple calcified g allstones in the dependent neck of the normal-appearing gallbladder. Mild uptake scattered throughout the bowels without radiologic correlate, also likely physiologic. Normal appendix. Anastomotic sutur e line at the rectosigmoid junction consistent with prior partial colectomy. Prostatomegaly. No other abnormal foci of increased FDG uptake or pathologically enlarged lymphadenopathy in the abdomen, pel vis or proximal thighs. Small left and tiny right fat-containing inguinal hernias. Musculoskeletal: Mild increased uptake overlying the bilateral greater trochanters consistent with trochanteric bursit is. Mild lumbar dextroscoliosis with moderate to severe spondylosis. Mild to moderate osteoarthritis at the bilateral hip and sacral iliac joints. No suspicious lytic or blastic bone lesions. Small amou nt of extravasated contrast in the soft tissues at the left hand. IMPRESSION: 1. Cirrhosis with marked FDG uptake associated with a poorly defined approximately 5-6 cm hepatic mas s consistent with progression of metastatic disease or primary liver cancer. 2. Decrease in size of a still mildly enlarged right axillary lymph node with decreased now mild FDG uptake which could be either reactive or treated metastatic disea
[2020-12-16 08:13] LABS: Glucose Point of Care 100 mg/dl (65-105)
== END 2020-12-16 07:53 | disposition home or self-care (01) ==
LOC: ANHIMG 07:54
PROVIDERS: PCP Family Medicine; Visit Provider Internal Medicine Hematology & Oncology
DX: C18.8 Malignant neoplasm of overlapping sites of colon (principal); K74.60 Unspecified cirrhosis of liver; R16.0 Hepatomegaly, not elsewhere classified; R59.0 Localized enlarged lymph nodes; R91.8 Other nonspecific abnormal finding of lung field; K80.50 Calculus of bile duct without cholangitis or cholecystitis without obstruction; I51.7 Cardiomegaly; N40.0 Benign prostatic hyperplasia without lower urinary tract symptoms
CPT/HCPCS: 78815; A9552

== ENCOUNTER 2021-01-28 09:36 | Outpatient (CLI) | payer MEDICARE, MEDICAID, SELFPAY ==
--- NOTE | ~2021-01-28 | XR_ITS ---
EXAMINATION: XR fl port a cath w contrast DATE: 01/28/2021 10:26 INDICATION: Port dysfunction. Malignant neoplasm of overlapping sites of colon. TECHNIQUE: I performed fluoroscopy of the chest while the port catheter was injected with contrast. F luoroscopy exposure time was 0.5 minutes. The number of images was 461. COMPARISON: Chest CT 12/02/2020 FINDINGS: There is a left subclavian port with tip in proximal right atrium. No kink or break in the catheter. During injection, contrast collects around the catheter tip and exits the area of the monica ter tip medially. IMPRESSION: 1. Abnormal contrast flow from the port catheter tip, which may be secondary to a fibrin sheath. Note that the catheter tip abuts the posterolateral wall of the right atrium on the prior CT, which may a lso be a factor. Reviewed, dictated and finalized at [facility]. [employer] IMPRESSION: 1. Abnormal contrast flow from the port catheter tip, which may be secondary to a fibrin sheath. Note that the catheter tip abuts the posterolateral wall of t he right atrium on the prior CT, which may also be a factor.
== END 2021-01-28 09:37 | disposition home or self-care (01) ==
PROVIDERS: PCP Family Medicine; Visit Provider Internal Medicine Hematology & Oncology
DX: C18.8 Malignant neoplasm of overlapping sites of colon (principal)
CPT/HCPCS: 36598

== ENCOUNTER 2021-02-04 08:51 | Outpatient (CLI) | payer MEDICARE, OTHER, SELFPAY ==
[2021-02-04 13:55] LABS: Cholesterol 165 mg/dL (0-200); HDL Direct 30 mg/dL; Triglycerides 139 mg/dL (<150)
[2021-02-04 13:59] LABS: Hemoglobin A1C 5.8 % (<5.7)
[2021-02-04 14:06] LABS: LDL Cholesterol Direct 96 mg/dL
== END 2021-02-04 08:52 | disposition home or self-care (01) ==
PROVIDERS: PCP Family Medicine; Visit Provider Family Medicine
DX: E11.59 Type 2 diabetes mellitus with other circulatory complications (principal); E78.2 Mixed hyperlipidemia; I10 Essential (primary) hypertension
CPT/HCPCS: 36415; 80061; 83036

== ENCOUNTER 2021-02-09 02:02 | Day surgery (SDC) | payer MEDICARE, MEDICAID, SELFPAY ==
[2021-02-03 14:56] VITALS: BMI 36.3
--- NOTE | 2021-02-03 15:05 | PC.NURSE ---
Report to the Outpatient Waiting Room, entrance under the green pavilion located off [facility], at time _1200__ on date _02/09/21__. OR Time: _2 PM__. - You and your visitor will be asked a series of questions to screen for COVID 19 for your protection. - A mask is required within the hospital. - Only one visitor is allowed at this time. Patient visitors will be guided where to wait when not with patient. Preoperative COVID Testing Requirements: No COVID Test needed if: (proof is required; if not received patient will have Rapid Test prior to entry) - Patient has received COVID Vaccine at least 14 days prior to procedure date or - Patient has positive COVID test result within last 90 days of surgery date. COVID Test needed if above criteria is not met If not COVID vaccinated a COVID test must be conducted within 72 hours of surgery and patient is asked to isolate self from time of testing until procedure. You will go to the [facility] for your COVID testing. The [facility] is located at the corner of [address] [facility]. You will only be called if COVID results are positive and your surgeon may reschedule your elective surgery date. Patients may have clear liquids (water, carbonated beverages, clear teas, apple juice) until 3 hours prior to surgery with a maximum of 20 ounces. - No food from midnight until time of surgery - Infants may have breast milk until 4 hours before surgery, formula 6 hours prior to surgery. - Children will be allowed to drink immediately following surgery. If applicable, please bring a bottle or sippy cup to assist with drinking. Juice, water, soda, and popsicles are readily available. For infants on formula, please bring formula the day of surgery. Pacifiers are allowed. Take the following medications with a SIP of water the morning of surgery: _DILTIAZEM, METOPROLOL Medications to discontinue per physician _MULTI VITAMIN, VITAMIN B-12 Date to take last dose___02/05/21____ Please no make-up, nail sudanese, hairspray, perfume, deodorant, or body powder the day of surgery. No jewelry (including any body piercings) or valuables the day of surgery, leave them at home. Please take a shower or bath the night before, or the morning of, surgery with an antibacterial soap. Wear comfortable, loose fitting clothing. Children are encouraged to wear pajamas. - Jewelry must be removed prior to entering the operating room. Rings and piercings that are not removed may be cut off. - The hospital will not accept responsibility for valuables. - Please leave all valuables, including medications, at home the day of surgery. If you are going home after surgery, a licensed [employer] company driver must drive you home. - NO public transportation without another adult. - We recommend that an adult stay with you for 24 hours following discharge. - We also recommend that you do not drive, make important decision, drink alcoholic beverages, or take any drugs that were not prescribed by your health care provider for at least 24 hours after your discharge time. For Pediatric surgeries, we recommend two adults accompany the child home (only one inside the building at this time). Follow any additional instructions given to you from your surgeon. Telephone instructions given to ____PT and asked if any additional questions and then verbalized understanding. Patient advised to call surgeon office or pre surgery nurse liaison [phone] if any additional questions.
--- NOTE | ~2021-02-09 | XR_ITS ---
XR chest port-a-cath/central 02/09/2021 12:01 Indication: Removal of portacatheter Procedure: AP portable chest Comparison: Comparison to multiple prior studies sequentially, with oldest reviewed study dated 07/23. Findings: Left subclavian urbano catheter tip in the SVC. Borderline heart size. Mild interstitial cub[place] ma. No significant effusion or pneumothorax. No acute osseous abnormality. Impression: 1: Borderline heart size with mild interstitial edema. Reviewed, dictated and finalized at location B. NING DEVELOPER Impression: 1: Borderline heart size with mild interstitial edema.
--- NOTE | ~2021-02-09 | XR_ITS ---
EXAMINATION: XR fl guide central line place EXAM DATE: 02/09/2021 11:36 INDICATION: Removal Honey Cath/ Honey Cath Placement Replaced . TECHNIQUE: Fluoroscopy used during XR fl guide central line place performed by Dr. Lili Butler MD. Radiologist was not present for the imaging or procedure. Total fluoroscopic time of 48 seconds . The DAP for this procedure was 0.31 mGym2. A total of 38 images sent to PACS from the exam. Appr oximately 20 mL of Omnipaque 240 was injected through portacatheter. FINDINGS: Images demonstrate tip of left-sided portacatheter tip overlying the SVC just above its ca voatrial junction, contrast within the SVC and then pulmonary artery Correlate with procedure note. IMPRESSION: Fluoroscopy used during XR fl guide central line place. Reviewed, dictated and finalized at location A. [employer] GROWER
--- NOTE | 2021-02-09 08:11 | WPDANESEPPF ---
Anes - Initial Pre Proc Eval Procedure: Operation Date: 02/09/21 11:00 Proposed Procedures p Honey Cath Removal, Honey Cath Placement - Lili Butler MD Date/Time: 02/09/21 08:11 Surgeon: Lili Butler MD Pre Op Diagnosis: Malignant Neoplasm Overlapping Colon Patient Data Age: 70 Gender: M Height: 1.78 m Weight: 115 kg Allergies Allergy/AdvReac Type Severity Reaction Status Date / Time No Known Allergies Allergy Verified 02/09/21 09:24 Home Medications Medication Instructions Recorded Confirmed Type fluticasone propionate 50 2 spray NASAL DAILY 02/05/19 02/04/21 History mcg/actuation nasal spray,suspension loperamide [Imodium A-D] 2 mg PO Q4H PRN 09/20/19 02/04/21 History cyanocobalamin (vitamin B-12) 500 mcg PO DAILY 12/10/19 02/04/21 History [Vitamin B-12] ferrous sulfate 325 mg PO Q12H 12/10/19 02/04/21 History metoprolol tartrate 50 mg PO Q12HR #60 tablet 05/17/20 02/04/21 Rx diltiazem HCl 240 mg capsule,24 240 mg PO DAILY 06/03/20 02/09/21 History hr,extended release allopurinol 300 mg tablet See Rx Instructions .ROUTE 08/25/20 02/04/21 Rx .COMPLEX #30 tablet simvastatin 10 mg tablet See Rx Instructions .ROUTE 09/01/20 02/04/21 Rx .COMPLEX #90 tablet lidocaine-prilocaine 2.5 %-2.5 % 1 applic TOPICAL ONCE 10/08/20 02/04/21 History topical cream loratadine 10 mg tablet 10 mg PO DAILY 10/08/20 02/04/21 History multivitamin 1 tablet PO DAILY 10/08/20 02/04/21 History triamcinolone acetonide 0.1 % 1 applic TOPICAL BID 10/08/20 02/04/21 History topical cream blood sugar diagnostic #200 ea 10/13/20 02/04/21 Rx glimepiride 1 mg tablet 1 mg PO QAM #90 tablet 10/13/20 02/04/21 Rx lancets #200 ea 10/13/20 02/04/21 Rx sitagliptin 100 mg tablet 100 mg PO DAILY #90 tablet 10/13/20 02/04/21 Rx furosemide 40 mg tablet See Rx Instructions .ROUTE 11/20/20 02/04/21 Rx .COMPLEX #90 tablet lisinopril 5 mg tablet See Rx Instructions .ROUTE 12/31/20 02/03/21 Rx .COMPLEX #90 tablet Patient hx anesthesia problems: none Family hx anesthesia problems: none Results Review: All pre-operative results and documents have been reviewed as part of the pre-operative evaluation. [facility] Past Medical History Medical History Adenocarcinoma of sigmoid colon (~07/28/18) Status post low anterior resection and chemotherapy. Atrial fibrillation Chronic anemia Congestive heart failure Echocardiogram in January 2020 showed mildly enlarged left ventricle with mild reduction left ventricular function with an EF of 45 to 50% as well as significant biatrial dilatation and small amounts of atrial, mitral, and tricuspid regurgitation. 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 Metabolic syndrome X Mixed hyperlipidemia Osteomyelitis Status post amputation of left 2nd toe. Peripheral vascular disease Type 2 diabetes mellitus Surgical History Surgical History History of amputation of lesser toe of left foot Treatment of osteomyelitis in 10/2013 & 01/2015. History of partial colectomy (~07/2017) Hand assisted laparoscopic low anterior resection with colorectal anastomosis for treatment of colon cancer. History of skin graft To poorly healing wound of the lower extremity. Port-A-Cath in place Family History Family History Mother Diabetes mellitus Father Cerebrovascular accident Other Family history of arthritis Family history of cardiovascular disease Family history of heart disease in male family member before age 55 Family history of thyroid disease Social History Social History Social History: The patient lives alone in
[2021-02-09 09:55] LABS: Glucose Point of Care 138 mg/dl (65-105)
[2021-02-09] MEDS: KETOROLAC 15 MG/ML VIAL (*BKC) IV PUSH (10:00)
[2021-02-09 10:07] VITALS: BP 120/73; PULSE 74; RESP 18; TEMP 36.4; O2SAT 100
[2021-02-09] MEDS: LACTATED RINGERS 1,000 ML 30 ML IV CONT (10:10)
[2021-02-09 10:15] LABS: Prothrombin Time 13.1 Seconds (11.1-14.7)
[2021-02-09 10:16] LABS: Partial Thromboplastin Time 26.5 SECONDS (22.3-36.8)
--- NOTE | 2021-02-09 10:39 | PM.IMHP ---
H&P: HPI History of Present Illness Date/Time: 02/09/21 10:39 Pt presents for port malfunction. The patient had port placed in left subclavian in August of 2017. It was noted that the port was not functioning well and subsequent port study shows dysfunction at the tip. This is most likely noted to be a fibrin sheath near the tip of the catheter. Chief Complaint: VAD dysfunction Review of Systems Review of Systems: All systems reviewed & are unremarkable except as noted in HPI and below PMFSH Past Medical History Medical History Adenocarcinoma of sigmoid colon (~07/28/18) Status post low anterior resection and chemotherapy. Atrial fibrillation Chronic anemia Congestive heart failure Echocardiogram in January 2020 showed mildly enlarged left ventricle with mild reduction left ventricular function with an EF of 45 to 50% as well as significant biatrial dilatation and small amounts of atrial, mitral, and tricuspid regurgitation. 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 Metabolic syndrome X Mixed hyperlipidemia Osteomyelitis Status post amputation of left 2nd toe. Peripheral vascular disease Type 2 diabetes mellitus Surgical History Surgical History History of amputation of lesser toe of left foot Treatment of osteomyelitis in 10/2013 & 01/2015. History of partial colectomy (~07/2017) Hand assisted laparoscopic low anterior resection with colorectal anastomosis for treatment of colon cancer. History of skin graft To poorly healing wound of the lower extremity. Port-A-Cath in place Family History Family History Mother Diabetes mellitus Father Cerebrovascular accident Other Family history of arthritis Family history of cardiovascular disease Family history of heart disease in male family member before age 55 Family history of thyroid disease Social History Social History Social History: The patient lives alone in his own apartment in [place]. He is single and never had children. 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 Lifelong nonsmoker. No alcohol or illicit substance use. Very active in his synagogue. He is not certain who he would want to be his surrogate decision maker at this time and wishes to think about it. Full code. Substance use type: does not use Living arrangements: alone Spiritual care concerns: No Meds Home Medications and Allergies Home Medications Medication Instructions Recorded Confirmed Type fluticasone propionate 50 2 spray NASAL DAILY 02/05/19 02/04/21 History mcg/actuation nasal spray,suspension loperamide [Imodium A-D] 2 mg PO Q4H PRN 09/20/19 02/04/21 History cyanocobalamin (vitamin B-12) 500 mcg PO DAILY 12/10/19 02/04/21 History [Vitamin B-12] ferrous sulfate 325 mg PO Q12H 12/10/19 02/04/21 History metoprolol tartrate 50 mg PO Q12HR #60 tablet 05/17/20 02/04/21 Rx diltiazem HCl 240 mg capsule,24 240 mg PO DAILY 06/03/20 02/09/21 History hr,extended release allopurinol 300 mg tablet See Rx Instructions .ROUTE 08/25/20 02/04/21 Rx .COMPLEX #30 tablet simvastatin 10 mg tablet See Rx Instructions .ROUTE 09/01/20 02/04/21 Rx .COMPLEX #90 tablet lidocaine-prilocaine 2.5 %-2.5 % 1 applic TOPICAL ONCE 10/08/20 02/04/21 History topical cream loratadine 10 mg tablet 10 mg PO DAILY 10/08/20 02/04/21 History multivitamin 1 tablet PO DAILY 10/08/20 02/04/21 History triamcinolone acetonide 0.1 % 1 applic TOPICAL BID 10/08/20 02/04/21 History topical cream blood sugar diagnostic #200 ea 10/13/20 02/04/21 Rx glimepiride 1 mg tablet 1 mg PO QAM #90 tablet
--- NOTE | 2021-02-09 10:43 | WPDHPUPDATE1 ---
History and Physical Update Update Date/Time: 02/09/21 10:43 History and Physical has been reviewed, including an updated exam of the patient. There are NO changes in the patient's condition. Risks, benefits, and alternatives have been discussed and questions answered. Patient agrees to proceed with procedure.
[2021-02-09] MEDS: ceFAZolin 2 GM/D5W 50 ML 2 GM/50 ML BAG IVPB (10:49)
[2021-02-09] MEDS: BUPIVACAINE HCL 0.5% PF 30 ML VIAL INFILTRATE (11:12)
[2021-02-09] MEDS: HEPARIN SODIUM, PORCINE 10,000 UNITS/10 ML VIAL 4000 UNITS IV PUSH (11:13)
[2021-02-09] MEDS: HEPARIN SODIUM 5,000 UNITS/ML VIAL 5000 UNITS IRRIGATION (11:14)
[2021-02-09 11:30] VITALS: BP 98/56; PULSE 62; RESP 15; O2SAT 97
--- NOTE | 2021-02-09 11:37 | W.PM.PROC2 ---
Procedure Note - Detailed Date of Procedure 02/09/21 Pre-op Diagnosis Venous access device dysfunction Post-op Diagnosis same Procedure Performed removal and replacement of left subclavian venous access device under fluoroscopic guidance Surgeon Lili Butler MD Anesthesia MAC and local Indications 70-year-old male with left subclavian venous access device placed in 2018. The venous access device is noted to be dysfunctional and subsequent port study is confirmation of that. Findings Removal of left subclavian venous access device, replaced with normal function noted via contrast study Description of Procedure Patient was brought into the operating room and placed in the supine position. After adequate induction of mac anesthesia, the patient was prepped and draped in normal sterile fashion. Time-out was then done to verify the patient's identity, as well as the procedure being performed. I began by making a small incision in the left chest, using the previous incision. I then gained access to the previously place port. After careful dissection, I was able to remove the port from the pocket. I then removed the catheter from the port itself. I then placed the guidewire into the catheter using fluoroscopy for guidance. The catheter and the guidewire were noted to be in good position left subclavian vein. I then removed the catheter, just leaving the guidewire in the vein. I then placed a dilating sheath over the guidewire into the left subclavian vein via sterile Seldinger technique. This was once again done and confirmed via fluoroscopic guidance. I then removed the dilator and the guidewire, now just leaving the sheath in the vein. I then fed the previously flushed catheter into the left subclavian vein under fluoroscopic guidance. At approximately 20 cm, the catheter was noted to be near the atrial caval junction. I then peeled away the sheath, now just leaving the catheter in the vein. I then was able to easily draw and flush from the catheter. I then flushed contrast through the catheter and noted that the catheter flushed well. There was no evidence of any dysfunction or fibrin sheath at the tip of the catheter. The catheter was cut to fit and attached to the port itself. The port was placed into the previously made subcutaneous pocket and sutured in with 0 Ethibond suture. Final fluoroscopic view showed the termination of the catheter at the atrial caval junction with a nice smooth curvature back to the port itself. I was able to gain access to the port with a Garcia needle and was able to easily draw and flush from the port. I then flushed 4 cc of a final heparin flush into the port. The incision was closed with 3 0 Vicryl suture in the subcutaneous tissue and the skin was closed with 4 O Monocryl subcuticular suture. Dermabond was then placed on wound. The patient tolerated the procedure well and will be sent to the recovery room in stable condition. Implants L SCV VAD Estimated Blood Loss 5 Drains No Packing No Pathology none sent Complications No immediate complications Condition stable Disposition PACU
[2021-02-09 11:40] LABS: Glucose Point of Care 120 mg/dl (65-105)
[2021-02-09 12:00] VITALS: BP 92/61; PULSE 56; RESP 16; O2SAT 99
[2021-02-09 12:30] VITALS: BP 98/55; PULSE 55; RESP 16
--- NOTE | 2021-02-09 13:23 | SUR.PHASEII ---
1215 PATIENT DRESSED, WAITING FOR RIDE.
== END 2021-02-09 13:10 | disposition home or self-care (01) ==
PROVIDERS: PCP Family Medicine; Visit Provider Surgery
PROC: (CPT 36582; principal; 2021-02-09 11:00)
DX: T82.594A Other mechanical complication of infusion catheter, initial encounter (principal); Y83.8 Other surgical procedures as the cause of abnormal reaction of the patient, or of later complication, without mention of misadventure at the time of the procedure; I48.91 Unspecified atrial fibrillation; D64.9 Anemia, unspecified; I11.0 Hypertensive heart disease with heart failure; I50.9 Heart failure, unspecified; M10.9 Gout, unspecified; Z79.01 Long term (current) use of anticoagulants; E88.81 Metabolic syndrome and other insulin resistance; E78.2 Mixed hyperlipidemia; E11.69 Type 2 diabetes mellitus with other specified complication; E11.42 Type 2 diabetes mellitus with diabetic polyneuropathy; I73.9 Peripheral vascular disease, unspecified; Z85.038 Personal history of other malignant neoplasm of large intestine; Z92.3 Personal history of irradiation; Z92.21 Personal history of antineoplastic chemotherapy; E66.9 Obesity, unspecified; Z68.37 Body mass index [BMI] 37.0-37.9, adult; Z89.422 Acquired absence of other left toe(s); Z90.49 Acquired absence of other specified parts of digestive tract
CPT/HCPCS: 36582; 36415; 77001; 82948; 85610; 85730; C1788; J0690; J1644; J1885; J2704; J3010; J7030; J7120

== ENCOUNTER 2021-04-09 07:19 | Outpatient (CLI) | payer MEDICARE, MEDICAID, SELFPAY ==
--- NOTE | ~2021-04-09 | CT_ITS ---
EXAMINATION: CT chest abdomen pelvis w con EXAM DATE: 04/09/2021 08:01 INDICATION: Overlapping malignant neoplasm of colon. TECHNIQUE: Spiral CT of the chest, abdomen and pelvis was performed following intravenous injection o f 100 mL Omnipaque 350. Axial, coronal and sagittal images chest, abdomen and pelvis were reviewed. Coronal maximum intensity pixel images of chest reviewed. The dose-length product (DLP) for this ex amination was 1779.01 mGy-cm. The exposure was tailored according to patient size (auto mA exposure control), and iterative reconstruction (ASIR) was used as additional dose reduction technique. Compar helen is made to prior examination from 12/02/2020. FINDINGS: CHEST: There is right axillary 2.1 x 1.2 cm lymph node, with improvement in size. Previously seen lef t pectoralis major intramuscular hematoma has resolved. There is a left-sided portacatheter. Moderate cardiomegaly. No central pulmonary emboli. Mildly aneurysmal ascending aorta at 4.8 cm. Previously d escribed left lower lobe nodule measures 4 mm today (axial image 92, was 8 mm on prior study). The 2n d adjacent nodule previously described is not well visualized. There is mild emphysema and hyperinfla tion. Mild coronary artery calcifications. No pneumothorax, pleural or pericardial effusion. ABDOMEN AND PELVIS: Ill-defined left liver lobe metastatic lesion measuring 3.6 x 3.1 cm, interval de crease in size from about 5 cm on prior study. There is cirrhosis. Splenic 2.5 cm hypodensity, likely benign. Pancreas, adrenal glands are unremarkable. Cholelithiasis, gallbladder otherwise unremarkabl e. Bilateral renal cysts up to 6 cm. No hydronephrosis. Prostate normal in size. Bladder unremarkable . Small to moderate left, small right inguinal fat-containing hernias. Mild aortoiliac arterial scler osis. No retroperitoneal lymphadenopathy. No evidence of appendicitis. Expected amount of colonic sto ol. Rectosigmoid anastomosis site intact. Advanced lumbar spondylosis with multilevel moderate to sev ere central canal stenosis suspected. There are no osteoblastic or osteolytic lesions identified. IMPRESSION: 1. Improvement in size of pulmonary nodules, left liver lobe lesion, right axillary lymphadenopathy which could be metastatic disease with response to treatment. 2. Resolution of previously seen left paralysis hematoma. 3. Chronic findings. Reviewed, dictated and finalized at location A. OPERATOR IMPRESSION: 1. Improvement in size of pulmonary nodules, left liver lobe lesion, right axi llary lymphadenopathy which could be metastatic disease with response to treatm ent. 2. Resolution of previously seen left paralysis hematoma. 3. Chronic findings.
== END 2021-04-09 07:20 | disposition home or self-care (01) ==
LOC: ANHIMG 07:23
PROVIDERS: PCP Family Medicine; Visit Provider Internal Medicine Hematology & Oncology
DX: C18.8 Malignant neoplasm of overlapping sites of colon (principal); I51.7 Cardiomegaly; I71.4 Abdominal aortic aneurysm, without rupture
CPT/HCPCS: 71260; 74177; Q9967

== ENCOUNTER 2021-06-04 14:06 | Outpatient (RCR) | payer MEDICARE, MEDICAID, SELFPAY ==
[2021-06-04 14:44] VITALS: BMI 35.6
== END 2021-07-14 14:59 | disposition home or self-care (01) ==
LOC: ANHWOC 14:06
PROVIDERS: PCP Family Medicine; Visit Provider Family Medicine
DX: S39.82XA Other specified injuries of lower back, initial encounter (principal)
CPT/HCPCS: 99212; G0463

== ENCOUNTER 2021-07-01 15:26 | Outpatient (CLI) | payer MEDICARE, MEDICAID, SELFPAY ==
--- NOTE | ~2021-07-01 | US_ITS ---
EXAMINATION: US venous doppler LE RT DATE: 07/01/2021 16:05 INDICATION: Right lower limb swelling and pain TECHNIQUE: Grayscale ultrasound images without and with compression and Doppler ultrasound images of the right lower extremity veins were obtained. COMPARISON: None. FINDINGS: The visualized portions of right common femoral vein, profunda (deep) femoral vein, femoral vein, pop liteal vein, peroneal trunk, posterior tibial veins, peroneal veins, lesser saphenous vein and greate r saphenous vein outflow are patent. IMPRESSION: 1. No deep venous thrombosis in the right lower limb. Reviewed, dictated and finalized at location A.
== END 2021-07-01 15:27 | disposition home or self-care (01) ==
LOC: ANHIMG 15:27
PROVIDERS: PCP Family Medicine; Visit Provider Internal Medicine Hematology & Oncology
DX: M79.89 Other specified soft tissue disorders (principal)
CPT/HCPCS: 36415; 36592; 80047; 80053; 81002; 85025; 93971

== ENCOUNTER 2021-07-22 08:31 | Outpatient (CLI) | payer MEDICARE, MEDICAID, SELFPAY ==
--- NOTE | ~2021-07-22 | CT_ITS ---
EXAMINATION: CT chest abdomen pelvis w con DATE: 07/22/2021 09:11 INDICATION: Malignant colon neoplasm TECHNIQUE: Computed tomography (CT) of the chest, abdomen, and pelvis was performed with 100 CC Omnip aque 300 intravenous contrast. Automated exposure control and iterative reconstruction technique were employed. Exam dose: 1752.09 mGy-cm total exam DLP. COMPARISON: 04/09/2021 and 12/02/2020 CT chest abdomen pelvis examinations FINDINGS: CHEST CT: Left Port-A-Cath catheter tip in proximal superior vena cava. 2 left lower lobe pulmonary nodules measuring approximate 5 x 7 mm dimension, compared to 6 mm and 8 mm on 12/02/2020. These are mildly decreased in size compared to 12/02/2020 by increased since 2. No pulmonary infiltrate or consolidation or pulmonary mass lesion is noted otherwise. Cardiomegaly. No pericardial or pleural effusion. Mild thoracic aortic aneurysm, aortic arch measuring up to 3.2 cm diameter, ascending aorta measuring up to 4.7 cm diameter. No thoracic aortic dissection. No hilar or mediastinal mass lesion or lymphadenopathy. Right axillary lymph node measuring up to 9.9 x 17.8 mm compared to 16.5 x 25.5 mm on 12/02/2020. Diffuse idiopathic skeletal hyperostosis of the thoracic spine. No suspicious osteolytic or osteoblas tic lesions. ABDOMEN/PELVIS CT: There is surface nodularity of the liver consistent with cirrhosis. Relatively stable ill-defined poorly marginated left hepatic hypoattenuating lesion, likely due to me tastasis. Numerous gallstones. No gallbladder wall thickening or pericholecystic fluid or fat stranding. No ramón e duct or pancreatic duct dilatation. No pancreatic mass lesion is evident. Stable 2.5 cm cystic lesion of the spleen, likely benign. Normal morphology of the adrenal glands. Stable bilateral renal cysts since 04/09/2021. No solid renal mass lesion or urinary tract calculus or hydroureteronephrosis is evident. Normal caliber of the abdominal aorta. No intraperitoneal or retroperitoneal or pelvic mass lesion or adenopathy or ascites. The urinary bladder, prostate gland and seminal vesicles are unremarkable. There is a suture line at the rectosigmoid area. No bowel obstruction or intraperitoneal free air. Fat-containing left inguinal hernia Severe degenerative disc disease throughout the lumbar and lumbosacral spine. No suspicious osteolyti c or osteoblastic lesions. IMPRESSION: Little interval change since 04/09/2021 Reviewed, dictated and finalized at Location A. Reviewed, dictated and finalized at location B.
== END 2021-07-22 08:32 | disposition home or self-care (01) ==
PROVIDERS: PCP Family Medicine; Visit Provider Internal Medicine Hematology & Oncology
DX: C18.8 Malignant neoplasm of overlapping sites of colon (principal)
CPT/HCPCS: 71260; 74177; Q9967

== ENCOUNTER 2021-08-06 16:35 | Inpatient (IN) | payer MEDICARE, MEDICAID, SELFPAY ==
[2021-08-06] VITALS (11 sets, daily range): BP systolic 86–129; BP diastolic 57–72; PULSE 120–151; RESP 20–22; TEMP 36.8; O2SAT 97–100; BMI 33.8
--- NOTE | ~2021-08-06 | XR_ITS ---
EXAMINATION: XR chest 1V portable INDICATION: Pulmonary edema TECHNIQUE: Portable AP chest at 0525 hours COMPARISON: 07/31/2021 FINDINGS: A left subclavian Port-A-Cath ends with its tip in the proximal superior vena cava. Cardiom egaly is noted. Diffuse interstitial and airspace opacities with slight interval worsening. There is no pleural effusion or pneumothorax. IMPRESSION: 1. Diffuse lung disease with interval worsening, consistent with pneumonia and/or pulmonary edema. 2. Cardiomegaly. Reviewed, dictated and finalized at location A. IMPRESSION: 1. Diffuse lung disease with interval worsening, consistent with pneumonia and/ or pulmonary edema. 2. Cardiomegaly.
--- NOTE | ~2021-08-06 | US_ITS ---
EXAMINATION: US venous doppler [facility] DATE: 08/15/2021 07:50 INDICATION: Bilateral lower limbs edema TECHNIQUE: Colin scale images without and with compression and Doppler images of the bilateral lower e xtremity veins were obtained. COMPARISON: 07/01/2021 FINDINGS: The right common femoral vein, profunda femoral vein, femoral vein, popliteal vein, peroneal trunk, p osterior tibial veins, and greater saphenous vein are patent. The left common femoral vein, profunda femoral vein, femoral vein, popliteal vein, peroneal trunk, po sterior tibial veins, and greater saphenous vein are patent. IMPRESSION: 1. Patent bilateral lower extremity veins. No evidence of deep venous thrombosis. Reviewed, dictated and finalized at location A. IMPRESSION: 1. Patent bilateral lower extremity veins. No evidence of deep venous thrombosi s.
--- NOTE | ~2021-08-06 | XR_ITS ---
XR chest 1V portable 08/08/2021 16:32 Indication: Pneumonia Procedure: AP portable chest Comparison: Comparison to multiple prior studies sequentially, with oldest reviewed study dated 08/2017. Findings: Portacatheter tip in the CC. Cardiomegaly. There is diffuse bilateral airspace disease with peribronchial thickening, consistent with edema. Pneumonia less favored. No pleural effusion or pneu mothorax. Impression: 1: Cardiomegaly with probable pulmonary edema. Pneumonia less favored. Reviewed, dictated and finalized at location A. Impression: 1: Cardiomegaly with probable pulmonary edema. Pneumonia less favored.
--- NOTE | 2021-08-06 16:46 | ECG_ITS ---
Measurements Intervals [place] Rate: 161 P: VT: 0 QRS: -56 QRSD: 118 T: 119 QT: 279 QTc: 458 Interpretive Statements ATRIAL FIBRILLATION WITH RAPID VENTRICULAR RESPONSE INCOMPLETE RIGHT BUNDLE BRANCH BLOCK LEFT ANTERIOR FASCICULAR BLOCK ST-T WAVE ABNORMALITY IN HIGH LAT/HIGH LAT LEADS- CONSIDER ISCHEMIA BASELINE ARTIFACT- V2 ABNORMAL ECG Electronically Signed On 08-07-2021 17:06:43 CDT by Juan M Kelly D.O.
[2021-08-06] MEDS: dilTIAZem HCl INJ 25 MG/5 ML VIAL 15 MG IV PUSH (17:09)
[2021-08-06 17:13] LABS: Hematocrit 32.1 % (42.0-52.0); Hemoglobin 10.9 g/dL (14.0-18.0); Mean Corpuscular Hemoglobin 31.3 pg (26-34); Mean Corpuscular Volume 92.2 fl (80-100); Mean Platelet Volume 11.8 fl (7.4-10.4); Platelet Count Result 69 k/mm3 (150-375); Red Blood Count 3.48 M/mm3 (4.6-6.20); Red Cell Distribution Width 15.3 % (11.5-14.5)
[2021-08-06 17:16] LABS: Appearance Urine Slightly Cloudy (Clear); Bilirubin Urine Negative (Negative); Color Urine Yellow (Yellow); Glucose Urine UA Negative (Negative); Ketones Urine Negative (Negative); Leukocyte Esterase Ur Negative LEU/UL (Negative); Nitrate Urine Negative (Negative); Protein Urine Trace mg/dL (Negative); Specific Grav Ur 1.015 (1.001-1.035); Urobilinogen Urine 0.2 mg/dL (<2.0); pH Urine 5.5 (5.0-9.0)
[2021-08-06 17:20] LABS: Alanine Aminotransferase 27 U/L (6-50); Alkaline Phosphatase 171 U/L (38-126); Anion Gap 10 mmol/L (8-16); Aspartate Amino Transferase 43 U/L (17-59); Bilirubin,Total 1.2 mg/dL (0.2-1.3); Blood Urea Nitrogen 38 mg/dL (9-20); Calcium 8.5 mg/dL (8.4-10.2); Carbon Dioxide 17 mmol/L (22-30); Chloride 102 mmol/L (98-107); Estimated CRCL calculation 37 ml/min; Estimated Glomerular Filt Rate 30; Glucose 135 mg/dL (65-110); Lipase 18 U/L (23-300); Sodium 129 mmol/L (137-145)
[2021-08-06] MEDS: SODIUM CHLORIDE 0.9% IV 1,000 ML 999 ML IV CONT (17:20)
[2021-08-06 17:22] LABS: Bacteria Urine Trace /hpf; Mucus Urine Rare /lpf; Squamous Epithelial Cell Urine Occasional /hpf (Few); WBC Urine 0-3 /hpf
[2021-08-06 17:24] LABS: Add Urine Microscopic? YES; Blood Urine Trace-Intact (Negative)
[2021-08-06 17:30] LABS: White Blood Count 0.7 K/mm3 (4.5-10.0)
[2021-08-06] MEDS: dilTIAZem 100 MG/100 ML 100 MG/100 ML BAG IV CONT (17:36)
[2021-08-06 17:42] LABS: Platelet Estimate Decreased (Adequate)
[2021-08-06 17:43] LABS: Lymphocytes Absolute Manual 0.56 K/mm3 (1.1-4.5); Lymphocytes Percent Manual 80 % (18-44); Monocytes Absolute Manual 0.08 K/mm3 (0.1-0.90); Monocytes Percent Manual 12 % (3-9); Neutrophils Percent Manual 8 % (46-73); Ovalocytes 1+ (NORMAL); Total Cells Counted 25
--- NOTE | 2021-08-06 17:51 | PC.NURSE ---
ABIMAEL from Dr. Lu to give 10 mg Cartizem and up his drip to 10mg/hr
--- NOTE | 2021-08-06 17:51 | ED.GENADULT ---
HPI - General Adult General Chief complaint: Nausea/Vomiting/Diarrhea Stated complaint: diarrhea since tuesday Time Seen by Provider: 08/06/21 16:53 Source: patient Mode of arrival: EMS Limitations: no limitations History of Present Illness HPI narrative: 70-year-old with a history of colon cancer presently going through chemotherapy, A. fib, diabetes was brought in from home with complaints of diarrhea for past few weeks. Patient was sent from home by home health nurse as he was feeling weak and continues to have diarrhea. No history of fever or chills. He had chemo therapy about a week ago. Related Data Home Medications Medication Instructions Recorded Confirmed fluticasone propionate 50 2 spray intranasal DAILY 02/05/19 07/29/21 mcg/actuation nasal spray,suspension (Allergy Relief (fluticasone)) loperamide 2 mg capsule (Imodium 2 mg PO Q4H PRN Diarrhea 09/20/19 07/29/21 A-D) cyanocobalamin (vitamin B-12) 500 mcg PO DAILY 12/10/19 07/29/21 1,000 mcg tablet (Vitamin B-12) ferrous sulfate 325 mg (65 mg 325 mg PO Q12H 12/10/19 07/29/21 iron) tablet diltiazem HCl 240 mg capsule,24 240 mg PO DAILY 06/03/20 07/29/21 hr,extended release lidocaine-prilocaine 2.5 %-2.5 % 1 applic topical ONCE 10/08/20 07/29/21 topical cream loratadine 10 mg tablet (Claritin) 10 mg PO DAILY 10/08/20 07/29/21 multivitamin 1 tablet PO DAILY 10/08/20 07/29/21 triamcinolone acetonide 0.1 % 1 applic topical BID 10/08/20 07/29/21 topical cream furosemide 40 mg tablet 40 mg PO DAILY 05/21/21 07/29/21 Allergies Allergy/AdvReac Type Severity Reaction Status Date / Time No Known Allergies Allergy Verified 08/06/21 16:44 Review of Systems Review of Systems: All systems reviewed & are unremarkable except as noted in HPI and below Constitutional: Constitutional: Reports no additional constitutional complaints Eyes: Eyes: Reports no additional eye complaints ENT: Reports system reviewed and no additional complaints, except as documented Cardiovascular: Cardiovascular: Reports as per HPI Respiratory: Respiratory: Reports no additional respiratory complaints Genitourinary: Genitourinary: Reports as per HPI Musculoskeletal: Musculoskeletal: Reports no additional musculoskeletal complaints Neurologic: Reports system reviewed and no additional complaints, except as documented Hematologic/Lymphatic: Hematologic/Lymphatic: Reports no additional hematologic/lymphatic complaints [facility] Past Medical History Medical History Adenocarcinoma of sigmoid colon (~07/28/18) Status post low anterior resection and chemotherapy. Atrial fibrillation Chronic anemia Congestive heart failure Echocardiogram in January 2020 showed mildly enlarged left ventricle with mild reduction left ventricular function with an EF of 45 to 50% as well as significant biatrial dilatation and small amounts of atrial, mitral, and tricuspid regurgitation. Diabetic peripheral neuropathy Essential hypertension Gout Learning disability retirement current use of anticoagulant On warfarin for stroke prophylaxis due to atrial fibrillation. Metabolic syndrome X Mixed hyperlipidemia Osteomyelitis Status post amputation of left 2nd toe. Peripheral vascular disease Type 2 diabetes mellitus Surgical History Surgical History History of amputation of lesser toe of left foot Treatment of osteomyelitis in 10/2013 & 01/2015. History of partial colectomy (~07/2017) Hand assisted laparoscopic low anterior resection with colorectal anastomosis for treatment of colon cancer. History of skin graft To poorly healing wound of the lower extremity. Port-A-Cath in place Family History Family History Mother Diabetes mellitus Father Cerebrovascular accident Other Family history of arthritis Family history of card
[2021-08-06] MEDS: dilTIAZem HCl INJ 25 MG/5 ML VIAL 10 MG IV PUSH (17:56)
[2021-08-06] MEDS: SODIUM CHLORIDE 0.9% IV 1,000 ML 1000 ML (18:40)
[2021-08-06] MEDS: DIGOXIN INJ 250 MCG/ML 2 ML AMP (*BKC) IV PUSH (19:12)
--- NOTE | 2021-08-06 20:04 | ADMGEN ---
This patient, Donaldo Booker, was admitted to IMU Room 212-01 at 2004. Patient/family oriented to hospital policies and general routines including ID bracelet, bed and alarms, visiting hours, pain management, procedures, bathroom and other care routines, personal items, smoking policy, room service/diet, and visiting hours. Information on how to activate the Rapid Response Team has been discussed. Patient/Family are encouraged to report perceived risks to care and to ask questions if they do not understand what they are told or what they should do.
--- NOTE | 2021-08-06 20:24 | PM.IMHP ---
H&P: HPI History of Present Illness Date/Time: 08/06/21 20:24 Chief Complaint: Diarrhea Narrative: 70-year-old male here with past medical history significant for AFib (previously anticoagulated with Coumadin, recently discontinued by Cardiology outpatient), Heart failure with EF of 45-50% per echo from 2019, diabetes (A1c 6.9, previous history of osteomyelitis and toe amputation), sigmoid colon cancer (metastatic, diagnosed August 2019 has adenocarcinoma of the colon, T3 N2 stage III status post low anterior resection in July 2017) currently getting chemotherapy approximately every 2 weeks (left upper chest port in place) is presenting with continued diarrhea. In the ER, he was noted to have neutropenia as well as AFib with RVR with a heart rate in the 160s. Cardizem 15 mg was given via IV push. Oncology, Dr. Alvarenga, was consulted and advised IV fluid rehydration due to mild acute kidney injury with creatinine at 2.2 and stated they will see in the morning. Other labs in the ER were thrombocytopenia and a platelet of 69 and hyponatremia with a sodium of 129. Patient is a poor historian and seems somewhat confused. Per the nursing staff, he has only had 1 episode of diarrhea since arriving to floor. He denies chest pain or shortness of breath. No nausea or vomiting noted. No other complaints. Per chart review, patient has a history of a wound on his bottom as well as his foot for which she was seeing wound care for. Review of Systems Review of Systems: ROS unobtainable: Yes unobtainable due to mental status PMFSH Past Medical History Medical History Adenocarcinoma of sigmoid colon (~07/28/18) Status post low anterior resection and chemotherapy. Atrial fibrillation Chronic anemia Congestive heart failure Echocardiogram in January 2020 showed mildly enlarged left ventricle with mild reduction left ventricular function with an EF of 45 to 50% as well as significant biatrial dilatation and small amounts of atrial, mitral, and tricuspid regurgitation. Diabetic peripheral neuropathy Essential hypertension Gout Learning disability [facility] current use of anticoagulant On warfarin for stroke prophylaxis due to atrial fibrillation. Metabolic syndrome X Mixed hyperlipidemia Osteomyelitis Status post amputation of left 2nd toe. Peripheral vascular disease Type 2 diabetes mellitus Surgical History Surgical History History of amputation of lesser toe of left foot Treatment of osteomyelitis in 10/2013 & 01/2015. History of partial colectomy (~07/2017) Hand assisted laparoscopic low anterior resection with colorectal anastomosis for treatment of colon cancer. History of skin graft To poorly healing wound of the lower extremity. Port-A-Cath in place Family History Family History Mother Diabetes mellitus Father Cerebrovascular accident Other Family history of arthritis Family history of cardiovascular disease Family history of heart disease in male family member before age 55 Family history of thyroid disease Social History Social History Social History: The patient lives alone in his own apartment in [place]. He is single and never had children. 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 Lifelong nonsmoker. No alcohol or illicit substance use. Very active in his shinto. He is not certain who he would want to be his surrogate decision maker at this time and wishes to think about it. Full code. Smoking status: Never smoker Alcohol intake: never Substance use: never Substance use type: does not use Spiritual care concerns: No Meds Home Medications and Allergies Home Medications Medication Instructions Recorded Confirmed Type
--- NOTE | 2021-08-06 20:40 | ADMGEN ---
This patient, Donaldo Booker, was admitted to IMU Room 212-01. Patient/family oriented to hospital policies and general routines including ID bracelet, bed and alarms, visiting hours, pain management, procedures, bathroom and other care routines, personal items, smoking policy, room service/diet, and visiting hours. Information on how to activate the Rapid Response Team has been discussed. Patient/Family are encouraged to report perceived risks to care and to ask questions if they do not understand what they are told or what they should do.
[2021-08-06] MEDS: SODIUM CHLORIDE 0.9% IV 1,000 ML 125 ML IV CONT (21:09)
[2021-08-06] MEDS: CENTRAL LINE FLUSH 10 ML IV PUSH (21:10)
[2021-08-06 21:53] LABS: INR 1.3; Prothrombin Time 15.9 Seconds (11.1-14.7)
[2021-08-07] VITALS (21 sets, daily range): BP systolic 93–109; BP diastolic 49–57; PULSE 85–137; RESP 20–26; TEMP 36.5–37.3; O2SAT 97–100; BMI 33.8
[2021-08-07] MEDS: dilTIAZem 100 MG/100 ML 100 MG/100 ML BAG 15 MG IV CONT ×4 (00:01→20:39)
[2021-08-07] MEDS: SODIUM CHLORIDE 0.9% IV 1,000 ML 125 ML IV CONT ×3 (05:26→20:40)
[2021-08-07] MEDS: CENTRAL LINE FLUSH 10 ML IV PUSH ×2 (05:28→20:38)
[2021-08-07 05:42] LABS: Hemoglobin 9.3 g/dL (14.0-18.0); Immature Platelet Fraction Pct 4.6 % (0.9-11.2); Mean Corpuscular HGB Conc 33.2 g/dl (32-36); Mean Corpuscular Hemoglobin 31.1 pg (26-34); Mean Corpuscular Volume 93.6 fl (80-100); Mean Platelet Volume 12.1 fl (7.4-10.4); Platelet Count Result 59 k/mm3 (150-375); Red Blood Count 2.99 M/mm3 (4.6-6.20); Red Cell Distribution Width 15.3 % (11.5-14.5)
[2021-08-07 05:50] LABS: Alanine Aminotransferase 26 U/L (6-50); Albumin Level 2.5 g/dL (3.5-5.1); Alkaline Phosphatase 132 U/L (38-126); Anion Gap 9 mmol/L (8-16); Aspartate Amino Transferase 55 U/L (17-59); Bilirubin,Total 0.8 mg/dL (0.2-1.3); Blood Urea Nitrogen 38 mg/dL (9-20); Calcium 7.6 mg/dL (8.4-10.2); Carbon Dioxide 15 mmol/L (22-30); Chloride 107 mmol/L (98-107); Estimated CRCL calculation 44 ml/min; Estimated Glomerular Filt Rate 37; Glucose 91 mg/dL (65-110); Potassium 3.7 mmol/L (3.4-5.0); Sodium 131 mmol/L (137-145)
[2021-08-07 06:05] LABS: Troponin I 0.023 ng/mL (0.000-0.034)
[2021-08-07 06:29] LABS: Mucus Urine Rare /lpf; WBC Urine 0-3 /hpf (0-3)
[2021-08-07 06:47] LABS: Appearance Urine Clear (Clear); Bilirubin Urine 2+ (Negative); Blood Urine Negative (Negative); Color Urine Yellow (Yellow); Glucose Urine UA Negative (Negative); Ketones Urine Trace mg/dL (Negative); Leukocyte Esterase Ur Negative LEU/UL (NEGATIVE); Nitrate Urine Negative (Negative); Protein Urine 1+ mg/dL (Negative); Specific Grav Ur 1.025 (1.001-1.035); Urobilinogen Urine 0.2 mg/dL (<2.0); pH Urine 5.5 (5.0-9.0)
[2021-08-07 06:48] LABS: Add Urine Microscopic? YES
[2021-08-07 07:11] LABS: White Blood Count 0.7 K/mm3 (4.5-10.0)
[2021-08-07 07:34] LABS: Eosinophils Absolute Manual 0.04 K/mm3 (0.02-0.5); Eosinophils Percent Manual 6 % (0-4); Lymphocytes Absolute Manual 0.56 K/mm3 (1.1-4.5); Monocytes Absolute Manual 0.07 K/mm3 (0.1-0.90); Monocytes Percent Manual 10 % (3-9); Neutrophils Percent Manual 4 % (46-73); Platelet Estimate Decreased (Adequate); Total Cells Counted 100
[2021-08-07 07:36] LABS: Anisocytosis 1+ (NORMAL); Hypochromasia 1+ (NORMAL); Poikilocytosis 1+ (NORMAL)
[2021-08-07] MEDS: FERROUS SULFATE 324 MG TABLET PO ×2 (09:42→17:43)
[2021-08-07] MEDS: CYANOCOBALAMIN 500 MCG TABLET PO (09:43)
[2021-08-07] MEDS: allopurinoL 300 MG TABLET PO (09:43)
[2021-08-07] MEDS: FLUTICASONE PROPIONATE 0.05% NA SPR 16 GM BTL (*BKC) 2 SPRAY NASAL (09:43)
[2021-08-07] MEDS: METOPROLOL TARTRATE 50 MG TAB PO ×2 (09:44→20:37)
[2021-08-07] MEDS: MULTIVITAMINS THERAPEUTIC TAB (*BKC) 1 TABLET PO (09:44)
[2021-08-07] MEDS: LORATADINE 10 MG TABLET PO (09:44)
[2021-08-07] MEDS: TRIAMCINOLONE ACET 0.1% CREAM 15 GM TUBE 1 APPLIC TOPICAL ×2 (09:45→20:37)
[2021-08-07] MEDS: SILVERGEL (ELTA) 45 ML 1 APPLIC TOPICAL (09:45)
[2021-08-07 12:08] LABS: IFOB Positive Control Positive; Immunochemical Fecal Occult Bl Positive (N)
[2021-08-07 13:28] LABS: Toxigenic C. Diff NEGATIVE (NEGATIVE)
[2021-08-07] MEDS: LOPERAMIDE HCL 2 MG CAPSULE PO ×2 (13:31→20:58)
--- NOTE | 2021-08-07 16:19 | PM.IMPN ---
Progress Note: A&P Assessment and Plan (1) Hyponatremia: Code(s): E87.1 - Hypo-osmolality and hyponatremia Status: Acute Assessment and Plan: likely secondary to hypovolemia, anticipate resolution as patient achieves euvolemic status, monitor closely, recheck in the a.m. (2) Atrial fibrillation with rapid ventricular response: Code(s): I48.91 - Unspecified atrial fibrillation Status: Acute Assessment and Plan: currently rate controlled on Cardizem drip, attempt to wean as patient is hydrated, suspect this will resolve as patient becomes euvolemic (3) Thrombocytopenia: Code(s): D69.6 - Thrombocytopenia, unspecified Status: Acute Assessment and Plan: likely secondary to chemotherapy, check PT INR and trend, watch closely (4) Chemotherapy induced diarrhea: Code(s): K52.1 - Toxic gastroenteritis and colitis; T45.1X5A - Adverse effect of antineoplastic and immunosuppressive drugs, initial encounter Status: Acute Assessment and Plan: monitor, appreciate oncology consultation, continue IV fluids, watch electrolytes closely, recheck in the a.m. (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: Code(s): E11.59 - Type 2 diabetes mellitus with other circulatory complications Status: Chronic Assessment and Plan: Accu-Cheks plus sliding scale insulin, check hemoglobin A1c (6) Morbid obesity: Code(s): E66.01 - Morbid (severe) obesity due to excess calories Status: Acute (7) Mixed hyperlipidemia: Code(s): E78.2 - Mixed hyperlipidemia Status: Acute Assessment and Plan: continue home medications (8) Essential (primary) hypertension: Code(s): I10 - Essential (primary) hypertension Status: Acute Assessment and Plan: slightly low, monitor closely (9) Colon cancer: Code(s): C18.9 - Malignant neoplasm of colon, unspecified Status: Acute Assessment and Plan: appreciate oncology consultation (10) Port-A-Cath in place: Code(s): Z95.828 - Presence of other vascular implants and grafts Status: Acute Assessment and Plan: if antibiotics needed at all, will draw blood cultures 1st, blood cultures drawn from the ER (11) Acute kidney injury: Code(s): N17.9 - Acute kidney failure, unspecified Status: Acute Assessment and Plan: likely secondary to hypovolemia due to the diarrhea, gentle IV hydration, recheck creatinine tomorrow (12) Elevated alkaline phosphatase level: Code(s): R74.8 - Abnormal levels of other serum enzymes Status: Acute Assessment and Plan: elevated alk-phos likely secondary to malignancy, no transaminitis noted (13) Microscopic hematuria: Code(s): R31.29 - Other microscopic hematuria Status: Acute Assessment and Plan: Unknown etiology, likely benign, recheck tomorrow Additional Plan 08/07/2021 interval history: patient is a 70-year-old male with history of sigmoid colon cancer seen by Oncology and receiving chemotherapy presented emergency depart with persistent diarrhea most likely secondary to chemotherapy C diff is negative, patient is given Imodium p.r.n. to prevent dehydration, patient with mild hyponatremia most likely secondary to dehydration, patient is being hydrated, also history of atrial fibrillation upon arrival patient was in AFib RVR ER started on diltiazem drip, rate is trending down will continue the drip and monitor, patient is also metoprolol 50 mg b.i.d., tomorrow morning will stop the drip resume patient's home diltiazem and monitor, upon arrival patient with leukopenia most likely secondary to chemotherapy communicated with the oncologist patient was given neualasta after recent chemotherapy patient will be seen by oncologist further recommendation to follow, will continue to monitor will have a PT OT evaluate the patient and further recommendation t
--- NOTE | 2021-08-07 16:35 | PDONCCN ---
HPI - Date of Consult Date/Time: 08/07/21 16:35 Requesting Physician: Leta Sam DO Primary Care Provider: Carli Caldwell DO - Consult Narrative Reason for consult: Metastatic adenocarcinoma Narrative: Donaldo Booker is a 70 year old male with history of metastatic adenocarcinoma of colon status post ultrasound-guided liver biopsy done in August of 2019. He was ordinary diagnosed with stage III colon cancer in July of 2017. He is currently on chemotherapy with Irinotecan and Avastin on a every 2 weeks basis. His last chemotherapy was on July 29. Patient also has a history of atrial fibrillation. He came into the hospital with profound diarrhea. Labs showed WBC count of 0.7 with hemoglobin of 10.9 and platelets 79136. Neutrophil was only 8000. Sodium was low at 129. He has been complaining of tiredness and fatigue but denies any bleeding including melena hematochezia. He does have some bruising in the upper extremity from the IV line. CT abdomen and pelvis was performed that showed stable finding. There was liver cirrhosis and stable liver metastasis. Review of Systems - Review of Systems All systems reviewed & are unremarkable except as noted in HPI and bel - Neurologic Reports system reviewed and no additional complaints, except as documented PMFSH Medical History: Medical History (Last Reviewed 08/07/21 @ 01:34 by Leta Sam DO) Adenocarcinoma of sigmoid colon Onset Date: ~07/28/18 Status post low anterior resection and chemotherapy. Atrial fibrillation Chronic anemia Congestive heart failure Echocardiogram in January 2020 showed mildly enlarged left ventricle with mild reduction left ventricular function with an EF of 45 to 50% as well as significant biatrial dilatation and small amounts of atrial, mitral, and tricuspid regurgitation. 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 Metabolic syndrome X Mixed hyperlipidemia Osteomyelitis Status post amputation of left 2nd toe. Peripheral vascular disease Type 2 diabetes mellitus Surgical History: Surgical History (Last Reviewed 08/07/21 @ 01:34 by Leta Sam DO) History of amputation of lesser toe of left foot Treatment of osteomyelitis in 10/2013 & 01/2015. History of partial colectomy Onset Date: ~07/2017 Hand assisted laparoscopic low anterior resection with colorectal anastomosis for treatment of colon cancer. History of skin graft To poorly healing wound of the lower extremity. Port-A-Cath in place Family History: Family History (Last Reviewed 08/07/21 @ 01:34 by Leta Sam DO) Mother Diabetes mellitus Father Cerebrovascular accident Other Family history of arthritis Family history of cardiovascular disease Family history of heart disease in male family member before age 55 Family history of thyroid disease - Social History Social History: Social History (Last Reviewed 08/07/21 @ 01:34 by Leta Sam DO) Alcohol Use: Alcohol intake: never Substance Use: Substance use: never Substance use type: does not use Others: Spiritual care concerns: No Smoking Status: Smoking status: Never smoker Meds Home Medications Medication Instructions Recorded Confirmed Type fluticasone propionate 50 2 spray intranasal DAILY 02/05/19 08/06/21 History mcg/actuation nasal spray,suspension (Allergy Relief (fluticasone)) loperamide 2 mg capsule (Imodium 2 mg PO Q4H PRN Diarrhea 09/20/19 08/06/21 History A-D) cyanocobalamin (vitamin B-12) 500 mcg PO DAILY 12/10/19 08/06/21 History 1,000 mcg tablet (Vitamin B-12) ferrous sulfate 325 mg (65 mg 325 mg PO Q12H 12/10/19 08/06/21 History iron) tablet metoprolol tartrate 50 mg tablet 50 mg PO Q12HR #60 tabs 05/17/20 08/06/21 Rx diltiazem HCl 240 mg capsule,24 2
[2021-08-07] MEDS: SIMVASTATIN 10 MG TABLET PO (20:37)
[2021-08-07 21:10] LABS: Glucose Point of Care 170 mg/dl (65-105)
[2021-08-08] VITALS (27 sets, daily range): BP systolic 70–128; BP diastolic 37–60; PULSE 72–125; RESP 17–40; TEMP 36.5–38.8; O2SAT 98–100
[2021-08-08] MEDS: dilTIAZem 100 MG/100 ML 100 MG/100 ML BAG 15 MG IV CONT ×2 (04:01→09:46)
[2021-08-08] MEDS: SODIUM CHLORIDE 0.9% IV 1,000 ML 125 ML IV CONT (04:02)
[2021-08-08 04:59] LABS: Hematocrit 28.4 % (42.0-52.0); Hemoglobin 9.4 g/dL (14.0-18.0); Mean Corpuscular HGB Conc 33.1 g/dl (32-36); Mean Corpuscular Hemoglobin 30.9 pg (26-34); Mean Corpuscular Volume 93.4 fl (80-100); Mean Platelet Volume 11.7 fl (7.4-10.4); Platelet Count Result 84 k/mm3 (150-375); Red Blood Count 3.04 M/mm3 (4.6-6.20); Red Cell Distribution Width 15.4 % (11.5-14.5)
[2021-08-08 05:16] LABS: Alanine Aminotransferase 33 U/L (6-50); Albumin Level 2.3 g/dL (3.5-5.1); Alkaline Phosphatase 199 U/L (38-126); Anion Gap 8 mmol/L (8-16); Aspartate Amino Transferase 44 U/L (17-59); Bilirubin,Total 0.9 mg/dL (0.2-1.3); Blood Urea Nitrogen 41 mg/dL (9-20); Calcium 7.6 mg/dL (8.4-10.2); Carbon Dioxide 16 mmol/L (22-30); Chloride 107 mmol/L (98-107); Estimated CRCL calculation 61 ml/min; Estimated Glomerular Filt Rate 55; Glucose 115 mg/dL (65-110); Magnesium 1.6 mg/dL (1.6-2.3); Potassium 3.5 mmol/L (3.4-5.0); Sodium 131 mmol/L (137-145)
[2021-08-08] MEDS: CENTRAL LINE FLUSH 10 ML IV PUSH ×3 (05:21→20:24)
[2021-08-08 05:33] LABS: Lymphocytes Absolute Manual 0.67 K/mm3 (1.1-4.5); Monocytes Percent Manual 10 % (3-9); Neutrophils Percent Manual 23 % (46-73); Ovalocytes 1+ (NORMAL); Platelet Estimate Decreased (Adequate); Total Cells Counted 100
[2021-08-08 05:34] LABS: Atypical Lymphocytes Present
[2021-08-08 07:45] LABS: Glucose Point of Care 114 mg/dl (65-105)
[2021-08-08] MEDS: FLUTICASONE PROPIONATE 0.05% NA SPR 16 GM BTL (*BKC) 2 SPRAY NASAL (09:45)
[2021-08-08] MEDS: TRIAMCINOLONE ACET 0.1% CREAM 15 GM TUBE 1 APPLIC TOPICAL ×2 (09:45→20:23)
[2021-08-08] MEDS: SILVERGEL (ELTA) 45 ML 1 APPLIC TOPICAL (09:45)
[2021-08-08] MEDS: FILGRASTIM-SNDZ 480 MCG/0.8 ML SYRINGE SUB-Q (09:46)
[2021-08-08] MEDS: LORATADINE 10 MG TABLET PO (09:47)
[2021-08-08] MEDS: MULTIVITAMINS THERAPEUTIC TAB (*BKC) 1 TABLET PO (09:47)
[2021-08-08] MEDS: levoFLOXacin 500 MG TABLET PO (09:47)
[2021-08-08] MEDS: FERROUS SULFATE 324 MG TABLET PO ×2 (09:47→18:13)
[2021-08-08] MEDS: CYANOCOBALAMIN 500 MCG TABLET PO (09:47)
[2021-08-08] MEDS: LOPERAMIDE HCL 2 MG CAPSULE PO (09:47)
[2021-08-08] MEDS: METOPROLOL TARTRATE 50 MG TAB PO ×2 (09:47→20:23)
[2021-08-08] MEDS: allopurinoL 300 MG TABLET PO (09:48)
[2021-08-08] MEDS: ACETAMINOPHEN 325 MG TABLET 650 MG PO (10:23)
--- NOTE | 2021-08-08 11:26 | PM.IMPN ---
Progress Note: A&P Assessment and Plan (1) Hypotension: Code(s): I95.9 - Hypotension, unspecified Status: Acute Assessment and Plan: multifactorial likely secondary to Cardizem infusion, hypovolemia and possible sepsis Cardizem infusion has been discontinued I will give you IV fluid bolus. 1 L ordered at this time check lactic acid level if blood pressure does not improve after fluid bolus will transfer patient to ICU and start on vasopressors urine and blood cultures have been sent already patient is already on broad-spectrum antibiotics in the form of vanc Zosyn and Levaquin CT chest abdomen pelvis does not show any pneumonia or intra-abdominal etiology check procalcitonin level UA was negative (2) Chemotherapy induced diarrhea: Code(s): K52.1 - Toxic gastroenteritis and colitis; T45.1X5A - Adverse effect of antineoplastic and immunosuppressive drugs, initial encounter Status: Acute Assessment and Plan: patient is on Imodium (3) Atrial fibrillation with rapid ventricular response: Code(s): I48.91 - Unspecified atrial fibrillation Status: Acute Assessment and Plan: heart rate is controlled. Patient received p.o. extended-release Cardizem this morning and also on p.o. beta-dinora will hold IV Cardizem infusion at this time not on anticoagulation due to pancytopenia and high risk of bleed (4) Pancytopenia: Code(s): D61.818 - Other pancytopenia Status: Acute Assessment and Plan: secondary to chemotherapy on Neupogen monitor levels and transfuse if needed Additional Plan 08/08/2021 Plan is to continue with IV fluids and antibiotics. Monitor electrolytes and CBC. DVT prophylaxis - SCDs Code Status - Full Code Subjective Date/time seen: 08/08/21 11:26 Patient was seen during morning rounds today. Diarrhea is slightly better. No shortness of breath or chest pain. Mood stable. Review of Systems Review of Systems: All systems reviewed & are unremarkable except as noted in HPI and below (HPI) ROS unobtainable: Yes unobtainable due to mental status Exam Narrative: General: Pt is elderly frail old male who is alert awake and in NAD Lungs/Chest: Trachea central Clear BS B/L, No crackles or wheezing. Cardiac: RRR. Normal S1 S2. No murmurs Circulation: Pedal pulses are intact and symmetrical. Abdomen: Normal bowel sounds.. Soft. NT. ND. Extremities: No clubbing, cyanosis or edema. Warm : Chua in place Neurologic: Follows commands. Moves all 4 extremities PERRL AO x3 Skin: No Rash chronic venous status changes on the legs but no significant edema Objective Data Vital Signs Vital Signs: Vital Signs - 24 hr 08/07/21 12:00 08/07/21 13:15 08/07/21 12:00 Temperature 36.7 C Pulse Rate 106 H 131 H Respiratory Rate 24 H Blood Pressure 93/57 L Pulse Oximetry 100 Oxygen Delivery Room Air 08/07/21 16:00 08/07/21 16:00 08/07/21 17:33 Temperature 36.5 C Pulse Rate 85 Respiratory Rate 20 Blood Pressure 98/49 L Pulse Oximetry 100 97 Oxygen Delivery Room Air Room Air 08/07/21 12:00 08/07/21 14:00 08/07/21 16:00 Temperature Pulse Rate 132 H 93 97 Respiratory Rate Blood Pressure Pulse Oximetry Oxygen Delivery 08/07/21 18:00 08/07/21 19:44 08/07/21 20:37 Temperature 37.0 C Pulse Rate 97 105 H 114 H Respiratory Rate 24 H Blood Pressure 103/51 L Pulse Oximetry 100 Oxygen Delivery 08/07/21 19:56 08/07/21 20:00 08/07/21 20:00 Temperature Pulse Rate 136 H 97 Respiratory Rate Blood Pressure Pulse Oximetry Oxygen Delivery Room Air 08/07/21 22:00 08/08/21 00:00 08/08/21 00:00 Temperature 37.0 C Pulse Rate 101 H 81 Respiratory Rate 20 Blood Pressure 111/60 Pulse Oximetry 98 Oxygen Delivery Room Air 08/08/21 00:00 08/08/21 02:00 08/08/21 00:00 Temperature Pulse Rate 100 93 97 Respiratory Rate Blood Pressu
[2021-08-08 12:13] LABS: Glucose Point of Care 137 mg/dl (65-105)
[2021-08-08] MEDS: SODIUM CHLORIDE 0.9% IV 1,000 ML 999 ML IV CONT (12:34)
--- NOTE | 2021-08-08 12:40 | WPDCNINT ---
Assessment and Plan Assessment and plan (1) Hypotension: Code(s): I95.9 - Hypotension, unspecified Status: Acute Assessment and Plan: multifactorial likely secondary to Cardizem infusion, hypovolemia and possible sepsis Cardizem infusion has been discontinued I will give you IV fluid bolus. 1 L ordered at this time check lactic acid level if blood pressure does not improve after fluid bolus will transfer patient to ICU and start on vasopressors urine and blood cultures have been sent already patient is already on broad-spectrum antibiotics in the form of vanc Zosyn and Levaquin CT chest abdomen pelvis does not show any pneumonia or intra-abdominal etiology check procalcitonin level UA was negative (2) Chemotherapy induced diarrhea: Code(s): K52.1 - Toxic gastroenteritis and colitis; T45.1X5A - Adverse effect of antineoplastic and immunosuppressive drugs, initial encounter Status: Acute Assessment and Plan: patient is on Imodium (3) Atrial fibrillation with rapid ventricular response: Code(s): I48.91 - Unspecified atrial fibrillation Status: Acute Assessment and Plan: heart rate is controlled. Patient received p.o. extended-release Cardizem this morning and also on p.o. beta-dinora will hold IV Cardizem infusion at this time not on anticoagulation due to pancytopenia and high risk of bleed (4) Pancytopenia: Code(s): D61.818 - Other pancytopenia Status: Acute Assessment and Plan: secondary to chemotherapy on Neupogen monitor levels and transfuse if needed Additional Plan DVT prophylaxis - SCDs Code Status - Full Code Total Critical Care Time - 30 minutes Due to a high probability of clinically significant, life threatening deterioration, the patient required my highest level of preparedness to intervene emergently and I personally spent this critical care time directly and personally managing the patient. This critical care time included obtaining a history; examining the patient; pulse oximetry; ordering and review of studies; arranging urgent treatment with development of a management plan; evaluation of patient's response to treatment; frequent reassessment; and discussions with other providers. It was exclusive of separately billable procedures and treating other patients and teaching time. Please see Assessment and Plan section and the rest of the note for further information on patient assessment and treatment Signals Analyst Consult Note Consult date: 08/08/21 Reason for consult: hypotension HPI: Donaldo Booker is a 70 year old male with past medical history significant for? AFib? (previously anticoagulated with Coumadin, recently discontinued by Cardiology outpatient), ? Heart failure with EF of 45-50% per echo from 2019, diabetes? (A1c 6.9, previous history of osteomyelitis and toe amputation), sigmoid colon cancer? (metastatic, diagnosed August 2019 has adenocarcinoma of the colon, T3 N2 stage III status post low anterior resection in July 2017) currently getting chemotherapy approximately every 2 weeks? (left upper chest port in place) was admitted with diarrhea on 08/06.? he was found to be having neutropenia as well as AFib with RVR with a heart rate in the 160s. ? patient was started on Cardizem infusion for rate control, patient was seen by Oncology and started on Neupogen and Levaquin. diarrhea was thought to be secondary to chemotherapy and patient was treated with IV fluids. Patient was given p.o. extended release Cardizem this morning. Patient became hypotensive. I was asked to evaluate patient for hypotension. patient was on Cardizem infusion which was discontinued around 15 minutes ago. Patient himself denies any complaints this time and states that he had 1 loose bowel movement early this morning. He also states that he had fever last night. Patient denies Dizziness lightheadedness, chest pain, shortness of breath, cough
[2021-08-08 13:28] LABS: Lactic Acid Reflex 1.4 mmol/L (0.7-2.0)
[2021-08-08 13:45] LABS: Procalcitonin 4.7 ng/mL
[2021-08-08] MEDS: SODIUM CHLORIDE 0.9% IV 1,000 ML 50 ML IV CONT (14:40)
[2021-08-08] MEDS: ALBUMIN HUMAN 5% 25 GM/500 ML BTL IV CONT (15:47)
--- NOTE | 2021-08-08 16:19 | PM.CNCAR ---
Assessment and Plan Assessment and plan (1) Atrial fibrillation with rapid ventricular response: Code(s): I48.91 - Unspecified atrial fibrillation Status: Acute Assessment and Plan: Heart rate controlled previously on diltiazem and metoprolol. Iatrogenic hypotension secondary to ongoing diltiazem infusion addition to oral diltiazem and metoprolol. Diltiazem has subsequent been discontinued. Discontinue diltiazem. Continue oral metoprolol as BP permits. Patient taken off systemic anticoagulation outside physician not managed by Cardiology as an outpatient. Patient high risk for embolic stroke. DVT prophylaxis advised. Expect with ongoing hypotension and or febrile illness heart rate will be difficult to manage. I would be cautious with oral diltiazem less BP improved significantly. If refractory hypotension transfer to ICU possible need for vasopressors. (2) Hypotension: Code(s): I95.9 - Hypotension, unspecified Status: Acute Assessment and Plan: IV fluid bolus. Monitor volume status closely. History of cardiomyopathy EF 40-45%. Patient is currently not volume overloaded. As above, secondary did concomitant IV and oral diltiazem in addition to oral metoprolol although can not exclude sepsis is contribution in setting of febrile neutropenia. (3) Pancytopenia: Code(s): D61.818 - Other pancytopenia Status: Acute Assessment and Plan: As above. Secondary to chemotherapy, immune suppressed status. Managed by Oncology. (4) Type 2 diabetes mellitus with other circulatory complications: Code(s): E11.59 - Type 2 diabetes mellitus with other circulatory complications Status: Chronic Assessment and Plan: Per primary service. (5) Congestive heart failure: Qualifiers: Heart failure type: unspecified Code(s): I50.9 - Heart failure, unspecified Status: Chronic Assessment and Plan: Patient is not in decompensated heart failure. (6) Colon cancer: Code(s): C18.9 - Malignant neoplasm of colon, unspecified Status: Acute Assessment and Plan: Per oncology. History of Present Illness History of Present Illness Consult date/time: Date of service: 08/08/21 16:19 Cardiology consultation at the request of Dr. Hwang for opinion regarding management of atrial fibrillation. Reason For Visit: afib with rvr, chemo induced diarrhea Narrative: Patient is a pleasant 7-year-old gentleman with a complex past medical history including chronic atrial fibrillation followed by Dr. Ramírez as an outpatient, history of mild LV dysfunction EF 45-50%, diabetes mellitus history of colon cancer metastatic undergoing chemotherapy admitted on 08/06 with complaints of weakness and severe diarrhea. He was noted to be tachycardic in AFib with heart rate up to 150s 160s and was started on diltiazem infusion. Patient was also febrile with a temperature up to 102? F with improvement of heart rate with management and diltiazem at 15 milligram/hour. Per primary service, patient was started on Cardizem 240 mg p.o. which started this morning in addition to metoprolol 50 mg and ongoing Diltiazem infusion with very good heart rate control yet patient became hypotensive this afternoon with systolic blood pressure dropping to 70/40 mm Hg. Diltiazem infusion was ordered to be stopped and IV fluid bolus advised. Patient is on neutropenic precautions. He is receiving broad-spectrum antibiotics possible sepsis. He was taken off his warfarin by outside physician presumably his PCP for unclear reasons as this was not managed by our office according to records from Dr. Ramírez dated April 02, 2021. Patient denies chest pain, shortness of breath or palpitations. Oncology is following him for metastatic disease. Review of Systems Review of Systems: All systems reviewed & are unremarkable except as noted in HPI and below Constitutional: Constitutional:
[2021-08-08 16:49] LABS: Glucose Point of Care 157 mg/dl (65-105)
[2021-08-08 17:27] LABS: Hematocrit 26.2 % (42.0-52.0); Hemoglobin 8.8 g/dL (14.0-18.0); Mean Corpuscular HGB Conc 33.6 g/dl (32-36); Mean Corpuscular Hemoglobin 30.8 pg (26-34); Mean Corpuscular Volume 91.6 fl (80-100); Mean Platelet Volume 11.5 fl (7.4-10.4); Platelet Count Result 98 k/mm3 (150-375); Red Blood Count 2.86 M/mm3 (4.6-6.20); Red Cell Distribution Width 15.5 % (11.5-14.5); White Blood Count 2.1 K/mm3 (4.5-10.0)
[2021-08-08 17:40] LABS: Anion Gap 10 mmol/L (8-16); Blood Urea Nitrogen 38 mg/dL (9-20); Calcium 7.5 mg/dL (8.4-10.2); Carbon Dioxide 15 mmol/L (22-30); Chloride 107 mmol/L (98-107); Estimated CRCL calculation 66 ml/min; Estimated Glomerular Filt Rate 60; Glucose 155 mg/dL (65-110); Magnesium 1.3 mg/dL (1.6-2.3); Potassium 3.6 mmol/L (3.4-5.0); Sodium 132 mmol/L (137-145)
[2021-08-08] MEDS: ALBUMIN HUMAN 25% 25 GM/100 ML 100 ML IVPB (18:09)
[2021-08-08 20:21] LABS: Glucose Point of Care 150 mg/dl (65-105)
[2021-08-08] MEDS: SIMVASTATIN 10 MG TABLET PO (20:24)
[2021-08-09] VITALS (29 sets, daily range): BP systolic 86–122; BP diastolic 41–73; PULSE 79–114; RESP 17–34; TEMP 36.6–37.9; O2SAT 90–99
[2021-08-09] MEDS: ALBUMIN HUMAN 25% 25 GM/100 ML 100 ML IVPB ×5 (00:11→23:34)
[2021-08-09] MEDS: CENTRAL LINE FLUSH 10 ML IV PUSH ×3 (05:26→21:10)
[2021-08-09 05:47] LABS: Hematocrit 24.5 % (42.0-52.0); Mean Corpuscular HGB Conc 32.7 g/dl (32-36); Mean Corpuscular Hemoglobin 30.5 pg (26-34); Mean Corpuscular Volume 93.5 fl (80-100); Mean Platelet Volume 11.5 fl (7.4-10.4); Platelet Count Result 120 k/mm3 (150-375); Red Blood Count 2.62 M/mm3 (4.6-6.20); Red Cell Distribution Width 15.6 % (11.5-14.5); White Blood Count 3.1 K/mm3 (4.5-10.0)
[2021-08-09 05:59] LABS: Alanine Aminotransferase 24 U/L (6-50); Albumin Level 2.3 g/dL (3.5-5.1); Alkaline Phosphatase 167 U/L (38-126); Anion Gap 8 mmol/L (8-16); Aspartate Amino Transferase 30 U/L (17-59); Bilirubin,Total 1.3 mg/dL (0.2-1.3); Blood Urea Nitrogen 36 mg/dL (9-20); Calcium 7.5 mg/dL (8.4-10.2); Carbon Dioxide 16 mmol/L (22-30); Chloride 107 mmol/L (98-107); Estimated CRCL calculation 68 ml/min; Estimated Glomerular Filt Rate 60; Glucose 113 mg/dL (65-110); Magnesium 1.3 mg/dL (1.6-2.3); Potassium 3.1 mmol/L (3.4-5.0); Sodium 131 mmol/L (137-145)
[2021-08-09] MEDS: dilTIAZem HCL 60 MG TABLET PO (05:59)
--- NOTE | 2021-08-09 07:53 | PC.NURSE ---
Bladder scan post void, 110 ml urine noted in bladder. Patient tolerated well.
[2021-08-09 08:12] LABS: Band Neutrophils Percent 16 % (0-6); Eosinophils Absolute Manual 0.15 K/mm3 (0.02-0.5); Eosinophils Percent Manual 5 % (0-4); Lymphocytes Absolute Manual 1.14 K/mm3 (1.1-4.5); Monocytes Absolute Manual 0.52 K/mm3 (0.1-0.90); Monocytes Percent Manual 17 % (3-9); Neutrophils Absolute Manual 1.27 K/mm3 (1.3-6.7); Neutrophils Percent Manual 25 % (46-73); Nucleated Red Blood Cells 1 %; Ovalocytes 1+ (NORMAL); Platelet Estimate Decreased (Adequate); Total Cells Counted 100
[2021-08-09 08:13] LABS: Burr Cells 1+ (NORMAL)
[2021-08-09] MEDS: MAGNESIUM SULFATE 3GM/D5W100ML 3 GM/100 ML BAG IVPB (08:14)
[2021-08-09] MEDS: POTASSIUM CHLORIDE INJ 40 MEQ in SODIUM CHLORIDE 0.9% IV 500 ML 130 MEQ IVPB (08:14)
--- NOTE | 2021-08-09 08:14 | WPDINTPN ---
Progress Note: A&P Assessment and Plan (1) Hypotension: Code(s): I95.9 - Hypotension, unspecified Status: Acute Assessment and Plan: multifactorial likely secondary to Cardizem PO/infusion, beta-dinora, hypovolemia and sepsis patient has received significant amount IV fluids. will hold further boluses and continue cautious hydration as patient does have history of abnormal cardiac function and has signs of volume overload in the form of mild edema today continue Vince-Synephrine for blood pressure support and maintain map his lactic acid level was normal but his procalcitonin level was elevated urine and blood cultures have been sent already patient is already on broad-spectrum antibiotics in the form of vanc Zosyn and Levaquin CT chest abdomen pelvis does not show any pneumonia or intra-abdominal etiology chest x-ray showed some pulmonary congestion UA was negative (2) Chemotherapy induced diarrhea: Code(s): K52.1 - Toxic gastroenteritis and colitis; T45.1X5A - Adverse effect of antineoplastic and immunosuppressive drugs, initial encounter Status: Acute Assessment and Plan: patient is on Imodium (3) Atrial fibrillation with rapid ventricular response: Code(s): I48.91 - Unspecified atrial fibrillation Status: Acute Assessment and Plan: heart rate is controlled. continue p.o. short-acting Cardizem for now. hold beta-dinora not on anticoagulation due to pancytopenia and high risk of bleed (4) Pancytopenia: Code(s): D61.818 - Other pancytopenia Status: Acute Assessment and Plan: secondary to chemotherapy on filgrastim hemoglobin has been stable and platelet count/ WBC has improved monitor levels and transfuse if needed (5) Metabolic acidosis: Code(s): E87.2 - Acidosis Status: Acute Assessment and Plan: secondary to diarrhea p.o. bicarb added (6) Sore in mouth: Code(s): K13.79 - Other lesions of oral mucosa Status: Acute Assessment and Plan: could be secondary to chemotherapy topical benzocaine gel ordered (7) Electrolyte abnormality: Code(s): E87.8 - Other disorders of electrolyte and fluid balance, not elsewhere classified Status: Acute Assessment and Plan: replace low potassium and magnesium Additional Plan DVT prophylaxis - SCDs Code Status - patient wishes to be full code Total Critical Care Time - 32 minutes Due to a high probability of clinically significant, life threatening deterioration, the patient required my highest level of preparedness to intervene emergently and I personally spent this critical care time directly and personally managing the patient. This critical care time included obtaining a history; examining the patient; pulse oximetry; ordering and review of studies; arranging urgent treatment with development of a management plan; evaluation of patient's response to treatment; frequent reassessment; and discussions with other providers. It was exclusive of separately billable procedures and treating other patients and teaching time. Please see Assessment and Plan section and the rest of the note for further information on patient assessment and treatment Subjective Date/time seen: 08/09/21 08:14 patient states that he feels weak. He had 1 bowel movement overnight. He denies any fever. patient today complains of sore in his mouth which is painful. He denies any other complaints. Patient denies fever, chest pain, shortness of breath, cough, nausea vomiting, abdominal pain, headache or constipation. all All other systems were reviewed and were negative. He was transferred to ICU yesterday evening and was started on phenylephrine infusion for blood pressure support. It use to be on low-dose phenylephrine. Review of Systems Review of Systems: All systems reviewed & are unremarkable except as noted in HPI and below (HPI) Exam Narrat
[2021-08-09] MEDS: POTASSIUM CHLORIDE 20 MEQ PACKET (FOR LIQUID) 40 MEQ PO (08:24)
[2021-08-09] MEDS: LORATADINE 10 MG TABLET PO (08:30)
[2021-08-09] MEDS: levoFLOXacin 500 MG TABLET PO (08:30)
[2021-08-09] MEDS: CYANOCOBALAMIN 500 MCG TABLET PO (08:30)
[2021-08-09] MEDS: MULTIVITAMINS THERAPEUTIC TAB (*BKC) 1 TABLET PO (08:31)
[2021-08-09] MEDS: FERROUS SULFATE 324 MG TABLET PO ×2 (08:31→17:39)
[2021-08-09] MEDS: allopurinoL 300 MG TABLET PO (08:31)
[2021-08-09] MEDS: TRIAMCINOLONE ACET 0.1% CREAM 15 GM TUBE 1 APPLIC TOPICAL ×2 (08:32→21:09)
[2021-08-09] MEDS: SILVERGEL (ELTA) 45 ML 1 APPLIC TOPICAL (08:32)
[2021-08-09] MEDS: FLUTICASONE PROPIONATE 0.05% NA SPR 16 GM BTL (*BKC) 2 SPRAY NASAL (08:32)
[2021-08-09] MEDS: SODIUM BICARBONATE TAB 650 MG TABLET 1300 MG PO ×2 (08:33→17:38)
[2021-08-09] MEDS: BENZOCAINE 20% DENTAL GEL 9 GM TUBE 1 APPLIC BY MOUTH (08:33)
--- NOTE | 2021-08-09 08:35 | PM.IMPN ---
Progress Note: A&P Assessment and Plan (1) Hypotension: Code(s): I95.9 - Hypotension, unspecified Status: Acute Assessment and Plan: multifactorial likely secondary to Cardizem PO/infusion, beta-dinora, hypovolemia and sepsis patient has received significant amount IV fluids. Still on phenylephrine. (2) Chemotherapy induced diarrhea: Code(s): K52.1 - Toxic gastroenteritis and colitis; T45.1X5A - Adverse effect of antineoplastic and immunosuppressive drugs, initial encounter Status: Acute Assessment and Plan: Due to chemotherapy. Continue immodium. (3) Atrial fibrillation with rapid ventricular response: Code(s): I48.91 - Unspecified atrial fibrillation Status: Acute Assessment and Plan: Rate controlled. Holding anticoagulation due to platelets. (4) Pancytopenia: Code(s): D61.818 - Other pancytopenia Status: Acute Assessment and Plan: 2/2 chemotherapy. Stable with no evidence of bleeding. Will monitor. (5) Metabolic acidosis: Code(s): E87.2 - Acidosis Status: Acute Assessment and Plan: 2/2 to diarrhea. (6) Sore in mouth: Code(s): K13.79 - Other lesions of oral mucosa Status: Acute Assessment and Plan: Likely due to chemotherapy. (7) Electrolyte abnormality: Code(s): E87.8 - Other disorders of electrolyte and fluid balance, not elsewhere classified Status: Acute Assessment and Plan: replace low potassium and magnesium Subjective Date/time seen: 08/09/21 08:35 Patient denies chest pain, shortness of breath, difficulty breathing, palpitations. Review of Systems Cardiovascular: Cardiovascular: Denies chest pain Respiratory: Respiratory: Denies dyspnea Exam Narrative: GENERAL: NAD, cooperative HEENT: Normocephalic, atraumatic, anicteric, nares clear, oropharynx moist and clear, dentition ok NECK: Supple CV: Normal S1, S2, RRR, No MRG RESP: CTAB, Normal work of breathing. EXTREMITIES: Warm and well perfused, no clubbing, cyanosis, or edema. SKIN: warm, dry and intact. NEURO:CN 2-12 grossly intact. Objective Data Vital Signs Vital Signs: Vital Signs - 24 hr 08/08/21 09:47 08/08/21 10:23 08/08/21 12:00 Temperature 101.9 F H 99.2 F Pulse Rate 125 H 72 Respiratory Rate 20 Blood Pressure 70/40 L Pulse Oximetry 100 Oxygen Delivery 08/08/21 12:28 08/08/21 12:30 08/08/21 12:35 Temperature Pulse Rate Respiratory Rate Blood Pressure 77/37 L 77/42 L 85/40 L Pulse Oximetry Oxygen Delivery 08/08/21 12:51 08/08/21 13:36 08/08/21 13:42 Temperature 99.4 F Pulse Rate Respiratory Rate Blood Pressure 80/42 L 82/43 L 98/46 L Pulse Oximetry Oxygen Delivery 08/08/21 14:44 08/08/21 16:00 08/08/21 16:49 Temperature 98.5 F 97.7 F Pulse Rate 77 Respiratory Rate 40 H Blood Pressure 88/51 L 91/56 L 91/52 L Pulse Oximetry 99 Oxygen Delivery 08/08/21 12:00 08/08/21 16:00 08/08/21 12:00 Temperature Pulse Rate 76 Respiratory Rate Blood Pressure Pulse Oximetry Oxygen Delivery Room Air Room Air 08/08/21 16:00 08/08/21 18:00 08/08/21 18:59 Temperature Pulse Rate 87 102 H 104 H Respiratory Rate 17 Blood Pressure 99/47 L Pulse Oximetry 100 Oxygen Delivery 08/08/21 18:45 08/08/21 18:00 08/08/21 17:30 Temperature Pulse Rate 102 H 93 107 H Respiratory Rate 24 H Blood Pressure 84/50 L 108/49 L Pulse Oximetry 100 Oxygen Delivery 08/08/21 18:00 08/08/21 20:00 08/08/21 20:18 Temperature 99.3 F Pulse Rate 99 114 H Respiratory Rate 25 H Blood Pressure 100/59 L 100/59 L Pulse Oximetry 100 Oxygen Delivery Room Air 08/08/21 20:23 08/08/21 20:00 08/08/21 22:00 Temperature Pulse Rate 112 H 99 85 Respiratory Rate Blood Pressure Pulse Oximetry Oxygen Delivery 08/08/21 22:00 08/08/21 22:00 08/09/21 00:00 [place]
[2021-08-09] MEDS: SODIUM CHLORIDE 0.9% IV 1,000 ML 50 ML IV CONT (11:30)
[2021-08-09] MEDS: FILGRASTIM-SNDZ 480 MCG/0.8 ML SYRINGE SUB-Q (11:32)
[2021-08-09] MEDS: dilTIAZem HCL 30 MG TABLET PO ×3 (12:16→23:33)
[2021-08-09 12:46] LABS: Glucose Point of Care 159 mg/dl (65-105)
--- NOTE | 2021-08-09 13:52 | PM.PNCARD ---
Progress Note: A&P Assessment and Plan (1) Atrial fibrillation with rapid ventricular response: Code(s): I48.91 - Unspecified atrial fibrillation Status: Acute Assessment and Plan: Heart rate reasonably controlled previously on oral diltiazem 30 mg p.o. q.6 hours. Metoprolol on hold. IV diltiazem discontinued. Patient previously taken off systemic anticoagulation outside physician as his anticoagulation was not managed by Cardiology as an outpatient. Patient high risk for embolic stroke. DVT prophylaxis advised. (2) Shock: Code(s): R57.9 - Shock, unspecified Status: Acute Assessment and Plan: Currently on Vince-Synephrine. IVF as tolerated. Monitor volume status closely. History of cardiomyopathy EF 40-45%. Broad-spectrum antibiotics possible sepsis. 08/06/2021 blood culture x1 positive for Staph epidermidis remaining culture 08/08/21 negative to date. (3) Pancytopenia: Code(s): D61.818 - Other pancytopenia Status: Acute Assessment and Plan: As above. Secondary to chemotherapy. Managed by Oncology. Neutropenic precautions. (4) Type 2 diabetes mellitus with other circulatory complications: Code(s): E11.59 - Type 2 diabetes mellitus with other circulatory complications Status: Chronic Assessment and Plan: Per primary service. (5) Congestive heart failure: Qualifiers: Heart failure type: unspecified Code(s): I50.9 - Heart failure, unspecified Status: Chronic Assessment and Plan: Patient is not in decompensated heart failure but need to monitor volume status closely. (6) Colon cancer: Code(s): C18.9 - Malignant neoplasm of colon, unspecified Status: Acute Assessment and Plan: Per oncology. Subjective Date/time seen: Date of service: 08/09/21 10:52 Follow-up for atrial fibrillation with RVR Heart rate reasonably controlled. Patient transferred to ICU yesterday afternoon due to refractory hypertension currently on Vince-Synephrine. Tolerating oral diltiazem 30 mg p.o. q.6 hours. Metoprolol on hold. Patient states he feels a little better. Denies chest pain or shortness of breath. Patient is intermittently febrile on broad-spectrum antibiotics. He remains on neutropenic precautions. Review of Systems Review of Systems: All systems reviewed & are unremarkable except as noted in HPI and below Constitutional: Constitutional: Reports as per HPI and Reports no additional constitutional complaints Eyes: Eyes: Reports as per HPI and Reports no additional eye complaints ENT: Reports system reviewed and no additional complaints, except as documented and Reports as per HPI Cardiovascular: Cardiovascular: Reports as per HPI and Reports no additional cardiovascular complaints Respiratory: Respiratory: Reports as per HPI and Reports no additional respiratory complaints Gastrointestinal: Gastrointestinal: Reports as per HPI and Reports no additional gastrointestinal complaints Genitourinary: Genitourinary: Reports no additional male genitourinary complaints and Reports as per HPI Musculoskeletal: Musculoskeletal: Reports no additional musculoskeletal complaints and Reports as per HPI Integumentary/Breasts: Skin/Breast: Reports system reviewed and no additional complaints, except as docu and Reports as per HPI Neurologic: Reports system reviewed and no additional complaints, except as documented and Reports as per HPI Psychiatric: Psychiatric: Reports no additional psychiatric complaints and Reports as per HPI Endocrine: Endocrine: Reports no additional endocrine complaints and Reports as per HPI Hematologic/Lymphatic: Hematologic/Lymphatic: Reports no additional hematologic/lymphatic complaints and Reports as per HPI Allergic/Immunologic: Allergic/Immunologic: Reports no additional allergic/immunologic complaints and Reports as per HPI Exam Narrative: General: Elderly male sl
--- NOTE | 2021-08-09 14:28 | PC.NURSE ---
Zainab completed on patient, result is svi -2.4 %. Patient is not fluid responsive, Dr. Jiang notified.
[2021-08-09 17:39] LABS: Glucose Point of Care 133 mg/dl (65-105)
[2021-08-09] MEDS: SIMVASTATIN 10 MG TABLET PO (21:09)
[2021-08-09 21:18] LABS: Glucose Point of Care 146 mg/dl (65-105)
[2021-08-10] VITALS (24 sets, daily range): BP systolic 98–126; BP diastolic 53–91; PULSE 84–142; RESP 20–33; TEMP 36.6–36.9; O2SAT 94–98
[2021-08-10] MEDS: ALBUMIN HUMAN 25% 25 GM/100 ML 100 ML IVPB ×3 (05:48→17:20)
[2021-08-10] MEDS: dilTIAZem HCL 30 MG TABLET PO (05:49)
[2021-08-10] MEDS: CENTRAL LINE FLUSH 10 ML IV PUSH ×3 (05:49→23:44)
[2021-08-10 06:14] LABS: Hematocrit 26.6 % (42.0-52.0); Hemoglobin 8.8 g/dL (14.0-18.0); Mean Corpuscular HGB Conc 33.1 g/dl (32-36); Mean Corpuscular Volume 93.7 fl (80-100); Mean Platelet Volume 10.9 fl (7.4-10.4); Platelet Count Result 181 k/mm3 (150-375); Red Blood Count 2.84 M/mm3 (4.6-6.20); Red Cell Distribution Width 15.9 % (11.5-14.5); White Blood Count 11.7 K/mm3 (4.5-10.0)
[2021-08-10 06:25] LABS: Alanine Aminotransferase 27 U/L (6-50); Albumin Level 2.7 g/dL (3.5-5.1); Alkaline Phosphatase 311 U/L (38-126); Anion Gap 8 mmol/L (8-16); Aspartate Amino Transferase 43 U/L (17-59); Bilirubin,Total 1.9 mg/dL (0.2-1.3); Blood Urea Nitrogen 33 mg/dL (9-20); Calcium 7.7 mg/dL (8.4-10.2); Carbon Dioxide 15 mmol/L (22-30); Chloride 106 mmol/L (98-107); Estimated CRCL calculation 81 ml/min; Estimated Glomerular Filt Rate > 60; Glucose 118 mg/dL (65-110); Sodium 129 mmol/L (137-145)
[2021-08-10 06:32] LABS: Magnesium 1.8 mg/dL (1.6-2.3)
[2021-08-10 07:08] LABS: Anisocytosis 2+ (NORMAL); Atypical Lymphocytes Present; Band Neutrophils Percent 24 % (0-6); Eosinophils Absolute Manual 0.23 K/mm3 (0.02-0.5); Eosinophils Percent Manual 2 % (0-4); Metamyelocytes Percent 2 %; Monocytes Absolute Manual 0.93 K/mm3 (0.1-0.90); Monocytes Percent Manual 8 % (3-9); Neutrophils Absolute Manual 9.59 K/mm3 (1.3-6.7); Neutrophils Percent Manual 58 % (46-73); Platelet Estimate Adequate (Adequate); Total Cells Counted 100
[2021-08-10 07:09] LABS: Poikilocytosis 2+ (NORMAL)
[2021-08-10] MEDS: SODIUM CHLORIDE 0.9% IV 1,000 ML 50 ML IV CONT (08:04)
[2021-08-10] MEDS: CALCIUM GLUC 2,000 MG/NS 100ML 2,000 MG/100 ML BAG 100 MG IVPB (08:05)
[2021-08-10] MEDS: LORATADINE 10 MG TABLET PO (08:06)
[2021-08-10] MEDS: levoFLOXacin 500 MG TABLET PO (08:06)
[2021-08-10] MEDS: allopurinoL 300 MG TABLET PO (08:06)
[2021-08-10] MEDS: MULTIVITAMINS THERAPEUTIC TAB (*BKC) 1 TABLET PO (08:06)
[2021-08-10] MEDS: POTASSIUM CHLORIDE 20 MEQ PACKET (FOR LIQUID) 40 MEQ PO ×3 (08:06→20:01)
[2021-08-10] MEDS: CYANOCOBALAMIN 500 MCG TABLET PO (08:06)
[2021-08-10] MEDS: FERROUS SULFATE 324 MG TABLET PO ×2 (08:07→16:44)
[2021-08-10] MEDS: FLUTICASONE PROPIONATE 0.05% NA SPR 16 GM BTL (*BKC) 2 SPRAY NASAL (08:07)
--- NOTE | 2021-08-10 08:24 | PM.IMPN ---
Progress Note: A&P Assessment and Plan (1) Hypotension: Code(s): I95.9 - Hypotension, unspecified Status: Acute Assessment and Plan: multifactorial likely secondary to Cardizem PO/infusion, beta-dinora, hypovolemia and sepsis patient has received significant amount IV fluids. Still on phenylephrine at the time of my visit. On vancomycin, zosyn and levofloxacin. Continues to be hypotensive. -Appreciate management from ICU (2) Chemotherapy induced diarrhea: Code(s): K52.1 - Toxic gastroenteritis and colitis; T45.1X5A - Adverse effect of antineoplastic and immunosuppressive drugs, initial encounter Status: Acute Assessment and Plan: Due to chemotherapy. Continue immodium. (3) Atrial fibrillation with rapid ventricular response: Code(s): I48.91 - Unspecified atrial fibrillation Status: Acute Assessment and Plan: Having HR 170s during my rounding. On cardizem. Appreciate Cardiology recs. (4) Pancytopenia: Code(s): D61.818 - Other pancytopenia Status: Acute Assessment and Plan: 2/2 chemotherapy. Stable with no evidence of bleeding. Platelets have recovered. May benefit from heparin BID prophylaxis. (5) Metabolic acidosis: Code(s): E87.2 - Acidosis Status: Acute Assessment and Plan: 2/2 to diarrhea. (6) Sore in mouth: Code(s): K13.79 - Other lesions of oral mucosa Status: Acute Assessment and Plan: Likely due to chemotherapy. (7) Electrolyte abnormality: Code(s): E87.8 - Other disorders of electrolyte and fluid balance, not elsewhere classified Status: Acute Assessment and Plan: replace low potassium and magnesium Additional Plan Subjective Date/time seen: 08/10/21 08:24 Patient is eating breakfast and says he has no issues. Denies chest pain or shortness of breath. Denies palpitations. Review of Systems Cardiovascular: Cardiovascular: Denies chest pain and Denies palpitations Respiratory: Respiratory: Denies dyspnea Objective Data Vital Signs Vital Signs: Vital Signs - 24 hr 08/09/21 10:00 08/09/21 10:00 08/09/21 09:49 Temperature Pulse Rate 87 87 Respiratory Rate 29 H Blood Pressure 111/56 L Pulse Oximetry 97 97 Oxygen Delivery Room Air 08/09/21 10:15 08/09/21 10:16 08/09/21 10:30 Temperature Pulse Rate 83 91 101 H Respiratory Rate 25 H 29 H 28 H Blood Pressure 97/62 L Pulse Oximetry 96 97 95 Oxygen Delivery 08/09/21 10:31 08/09/21 10:42 08/09/21 10:45 Temperature Pulse Rate 92 98 96 Respiratory Rate 31 H 34 H 22 H Blood Pressure 94/56 L 106/56 L 121/69 Pulse Oximetry 97 90 96 Oxygen Delivery 08/09/21 10:46 08/09/21 11:00 08/09/21 11:31 Temperature Pulse Rate 102 H 99 Respiratory Rate 17 Blood Pressure 95/47 L Pulse Oximetry 97 Oxygen Delivery Room Air 08/09/21 12:17 08/09/21 12:00 08/09/21 12:00 Temperature Pulse Rate 98 114 H 101 H Respiratory Rate 20 Blood Pressure 106/48 L 97/73 L Pulse Oximetry 98 Oxygen Delivery 08/09/21 12:00 08/09/21 14:00 08/09/21 14:00 Temperature 97.9 F Pulse Rate 98 91 99 Respiratory Rate 20 19 Blood Pressure 122/55 L Pulse Oximetry 98 99 Oxygen Delivery Room Air 08/09/21 16:00 08/09/21 16:00 08/09/21 16:00 Temperature Pulse Rate 98 84 83 Respiratory Rate 20 24 H Blood Pressure 105/68 Pulse Oximetry 98 97 Oxygen Delivery Room Air 08/09/21 18:00 08/09/21 18:00 08/09/21 21:05 Temperature 97.9 F Pulse Rate 91 88 96 Respiratory Rate 21 H Blood Pressure 105/54 L Pulse Oximetry 95 96 Oxygen Delivery Room Air 08/09/21 21:10 08/09/21 20:00 08/09/21 20:00 Temperature Pulse Rate 96 88 88 Respiratory Rate 26 H Blood Pressure 108/51 L Pulse Oximetry 97 Oxygen Delivery Room Air 08/09/21 20:00 08/09/21 22:00 08/09/21 22:33 Temperature 98.2 F Pulse Rate 88 98 85
[2021-08-10] MEDS: SILVERGEL (ELTA) 45 ML 1 APPLIC TOPICAL (08:33)
[2021-08-10] MEDS: TRIAMCINOLONE ACET 0.1% CREAM 15 GM TUBE 1 APPLIC TOPICAL ×2 (08:33→20:05)
[2021-08-10] MEDS: SODIUM BICARBONATE TAB 650 MG TABLET 1300 MG PO ×2 (08:33→16:43)
[2021-08-10 08:54] LABS: Glucose Point of Care 112 mg/dl (65-105)
--- NOTE | 2021-08-10 09:33 | PM.PNCARD ---
Progress Note: A&P Assessment and Plan (1) Atrial fibrillation with rapid ventricular response: Code(s): I48.91 - Unspecified atrial fibrillation Status: Acute Assessment and Plan: Tachycardic, heart rate suboptimally controlled on oral diltiazem 30 mg p.o. q.6 hours. Metoprolol on hold due to Vince-Synephrine and shock. IV fluid support, IV albumin helping blood pressure. Wean Vince-Synephrine. If BP will tolerate IV metoprolol 2.5 mg IV q.6 hours if heart rate sustained greater than 130 beats per minute. Patient is asymptomatic in this regard. IV diltiazem discontinued due to hypotension Patient previously taken off systemic anticoagulation outside physician as his anticoagulation was not managed by Cardiology as an outpatient. Patient high risk for embolic stroke. Tachycardia no doubt driven by febrile illness. (2) Shock: Code(s): R57.9 - Shock, unspecified Status: Acute Assessment and Plan: Currently on Vince-Synephrine although improving. IVF as tolerated. Monitor volume status closely. History of cardiomyopathy EF 40-45%. Broad-spectrum antibiotics possible sepsis. 08/06/2021 blood culture x1 positive for Staph epidermidis remaining culture 08/08/21 negative to date. Patient remains critically ill. Prognosis guarded. Defer additional management to Critical Care and Primary Service. (3) Pancytopenia: Code(s): D61.818 - Other pancytopenia Status: Acute Assessment and Plan: As above. Secondary to chemotherapy. Managed by Oncology. Neutropenic precautions. (4) Type 2 diabetes mellitus with other circulatory complications: Code(s): E11.59 - Type 2 diabetes mellitus with other circulatory complications Status: Chronic Assessment and Plan: Per primary service. (5) Congestive heart failure: Qualifiers: Heart failure type: unspecified Code(s): I50.9 - Heart failure, unspecified Status: Chronic Assessment and Plan: Patient is not in decompensated heart failure but need to monitor volume status closely. (6) Colon cancer: Code(s): C18.9 - Malignant neoplasm of colon, unspecified Status: Acute Assessment and Plan: Per oncology. Subjective Date/time seen: Date of service: 08/10/21 09:33 Follow-up for atrial fibrillation with RVR Patient feels okay. Denies shortness of breath or chest pain or palpitations. Remains on Vince-Synephrine with weaning overnight. AFib with RVR heart rates generally in the 110s to 130s occasionally up to 160s, still receiving diltiazem 30 mg p.o. q.6 hours. Given IV albumin with improvement in blood pressures this morning. Review of Systems Review of Systems: All systems reviewed & are unremarkable except as noted in HPI and below Constitutional: Constitutional: Reports as per HPI and Reports no additional constitutional complaints Eyes: Eyes: Reports as per HPI and Reports no additional eye complaints ENT: Reports system reviewed and no additional complaints, except as documented and Reports as per HPI Cardiovascular: Cardiovascular: Reports as per HPI and Reports no additional cardiovascular complaints Respiratory: Respiratory: Reports as per HPI and Reports no additional respiratory complaints Gastrointestinal: Gastrointestinal: Reports as per HPI and Reports no additional gastrointestinal complaints Genitourinary: Genitourinary: Reports no additional male genitourinary complaints and Reports as per HPI Musculoskeletal: Musculoskeletal: Reports no additional musculoskeletal complaints and Reports as per HPI Integumentary/Breasts: Skin/Breast: Reports system reviewed and no additional complaints, except as docu and Reports as per HPI Neurologic: Reports system reviewed and no additional complaints, except as documented and Reports as per HPI Psychiatric: Psychiatric: Reports no additional psychiatric complaints and Reports as per HPI Endocrine: Endocrine: Re
--- NOTE | 2021-08-10 10:53 | WPDINTPN ---
Progress Note: A&P Assessment and Plan (1) Hypotension: Code(s): I95.9 - Hypotension, unspecified Status: Acute Assessment and Plan: multifactorial likely secondary to Cardizem PO/infusion, beta-dinora, hypovolemia and sepsis patient has received significant amount IV fluids. Nicom assessment was done yesterday and patient was not found to be responsive to fluid. I will hold further boluses and continue cautious hydration as patient does have history of abnormal cardiac function and has signs of volume overload in the form of mild edema now continue Vince-Synephrine for blood pressure support and maintain map. Will try to wean it off his lactic acid level was normal but his procalcitonin level was elevated urine and blood cultures have been sent and are negative except 1 blood culture which grew Staph epidermis which is likely contaminant patient is already on broad-spectrum antibiotics in the form of vanc Zosyn and Levaquin CT chest abdomen pelvis does not show any pneumonia or intra-abdominal etiology chest x-ray showed some pulmonary congestion UA was negative continue albumin (2) Chemotherapy induced diarrhea: Code(s): K52.1 - Toxic gastroenteritis and colitis; T45.1X5A - Adverse effect of antineoplastic and immunosuppressive drugs, initial encounter Status: Acute Assessment and Plan: patient is on Imodium (3) Atrial fibrillation with rapid ventricular response: Code(s): I48.91 - Unspecified atrial fibrillation Status: Acute Assessment and Plan: patient is in RVR this morning. increase p.o. Cardizem, resume p.o. metoprolol and add p.r.n. IV metoprolol control patient has not been on any anticoagulation due to pancytopenia and high risk of bleed. I will start aspirin today as platelet count is improved (4) Pancytopenia: Code(s): D61.818 - Other pancytopenia Status: Acute Assessment and Plan: secondary to chemotherapy on filgrastim hemoglobin has been stable and platelet count/ WBC has improved monitor levels (5) Metabolic acidosis: Code(s): E87.2 - Acidosis Status: Acute Assessment and Plan: secondary to diarrhea p.o. bicarb added (6) Sore in mouth: Code(s): K13.79 - Other lesions of oral mucosa Status: Acute Assessment and Plan: could be secondary to chemotherapy topical benzocaine gel ordered (7) Electrolyte abnormality: Code(s): E87.8 - Other disorders of electrolyte and fluid balance, not elsewhere classified Status: Acute Assessment and Plan: replace low potassium and magnesium Additional Plan DVT prophylaxis - SCDs Code Status - patient wishes to be full code Total Critical Care Time - 30 minutes Due to a high probability of clinically significant, life threatening deterioration, the patient required my highest level of preparedness to intervene emergently and I personally spent this critical care time directly and personally managing the patient. This critical care time included obtaining a history; examining the patient; pulse oximetry; ordering and review of studies; arranging urgent treatment with development of a management plan; evaluation of patient's response to treatment; frequent reassessment; and discussions with other providers. It was exclusive of separately billable procedures and treating other patients and teaching time. Please see Assessment and Plan section and the rest of the note for further information on patient assessment and treatment Subjective Date/time seen: 08/10/21 10:53 patient continues to be on Vince-Synephrine for blood pressure support. He had 1 bowel movement. Denies any complaints today. He denies any fever abdominal pain nausea vomiting. He is tolerating oral diet. All the systems were reviewed and were negative. His heart rate has increased this morning and he is In AFib with RVR. Review of Systems Revi
[2021-08-10] MEDS: dilTIAZem HCL 60 MG TABLET PO ×2 (11:01→17:21)
[2021-08-10] MEDS: METOPROLOL TARTRATE 25 MG TABLET PO ×2 (12:14→20:02)
[2021-08-10] MEDS: ASPIRIN 325 MG ENTERIC TABLET PO (12:15)
[2021-08-10 12:26] LABS: Glucose Point of Care 122 mg/dl (65-105)
[2021-08-10 16:54] LABS: Glucose Point of Care 146 mg/dl (65-105)
[2021-08-10] MEDS: SIMVASTATIN 10 MG TABLET PO (20:03)
[2021-08-11] VITALS (18 sets, daily range): BP systolic 101–130; BP diastolic 54–77; PULSE 80–111; RESP 22–31; TEMP 36.4–36.8; O2SAT 94–100
[2021-08-11] MEDS: ALBUMIN HUMAN 25% 25 GM/100 ML 100 ML IVPB ×2 (00:15→05:40)
[2021-08-11] MEDS: dilTIAZem HCL 60 MG TABLET PO ×5 (00:17→23:40)
[2021-08-11 04:50] LABS: Hematocrit 25.4 % (42.0-52.0); Hemoglobin 8.6 g/dL (14.0-18.0); Mean Corpuscular HGB Conc 33.9 g/dl (32-36); Mean Corpuscular Hemoglobin 30.8 pg (26-34); Mean Platelet Volume 10.1 fl (7.4-10.4); Platelet Count Result 160 k/mm3 (150-375); Red Blood Count 2.79 M/mm3 (4.6-6.20); Red Cell Distribution Width 15.9 % (11.5-14.5); White Blood Count 11.3 K/mm3 (4.5-10.0)
[2021-08-11 05:02] LABS: Alanine Aminotransferase 26 U/L (6-50); Albumin Level 3.1 g/dL (3.5-5.1); Alkaline Phosphatase 432 U/L (38-126); Anion Gap 7 mmol/L (8-16); Aspartate Amino Transferase 49 U/L (17-59); Bilirubin,Total 1.6 mg/dL (0.2-1.3); Blood Urea Nitrogen 29 mg/dL (9-20); Calcium 8.6 mg/dL (8.4-10.2); Carbon Dioxide 19 mmol/L (22-30); Chloride 107 mmol/L (98-107); Estimated CRCL calculation 89 ml/min; Estimated Glomerular Filt Rate > 60; Glucose 102 mg/dL (65-110); Magnesium 1.8 mg/dL (1.6-2.3); Potassium 3.4 mmol/L (3.4-5.0); Sodium 133 mmol/L (137-145)
[2021-08-11 05:21] LABS: Anisocytosis 2+ (NORMAL); Band Neutrophils Percent 15 % (0-6); Basophils Absolute Manual 0.11 K/mm3 (0.0-0.1); Basophils Percent Manual 1 % (0-1); Eosinophils Absolute Manual 0.33 K/mm3 (0.02-0.5); Eosinophils Percent Manual 3 % (0-4); Lymphocytes Absolute Manual 1.01 K/mm3 (1.1-4.5); Monocytes Absolute Manual 0.67 K/mm3 (0.1-0.90); Monocytes Percent Manual 6 % (3-9); Myelocytes Percent 1 %; Neutrophils Absolute Manual 9.04 K/mm3 (1.3-6.7); Neutrophils Percent Manual 65 % (46-73); Platelet Estimate Adequate (Adequate); Poikilocytosis 2+ (NORMAL); Total Cells Counted 100
[2021-08-11 05:22] LABS: Atypical Lymphocytes Present; Ovalocytes 1+ (NORMAL); Tear Drop Cells 1+ (NORMAL)
[2021-08-11] MEDS: CENTRAL LINE FLUSH 10 ML IV PUSH ×3 (05:40→20:34)
--- NOTE | 2021-08-11 08:15 | PM.IMPN ---
Progress Note: A&P Assessment and Plan (1) Hypotension: Code(s): I95.9 - Hypotension, unspecified Status: Acute Assessment and Plan: Multifactorial likely secondary to Cardizem PO/infusion, beta-dinora, hypovolemia and sepsis patient has received significant amount IV fluids. Still on phenylephrine at the time of my visit. On vancomycin, zosyn and levofloxacin. Off phenylephrine -Ok to transfer to step down unit -Appreciate management from ICU (2) Chemotherapy induced diarrhea: Code(s): K52.1 - Toxic gastroenteritis and colitis; T45.1X5A - Adverse effect of antineoplastic and immunosuppressive drugs, initial encounter Status: Acute Assessment and Plan: Due to chemotherapy. Continue immodium. (3) Atrial fibrillation with rapid ventricular response: Code(s): I48.91 - Unspecified atrial fibrillation Status: Acute Assessment and Plan: Improved this morning with hr in low 100s. Continue cardizem. Appreciate Cardiology recs. (4) Pancytopenia: Code(s): D61.818 - Other pancytopenia Status: Acute Assessment and Plan: 2/2 chemotherapy. Stable with no evidence of bleeding. Platelets have recovered. May benefit from dvt prophylaxis. (5) Metabolic acidosis: Code(s): E87.2 - Acidosis Status: Acute Assessment and Plan: 2/2 to diarrhea. (6) Sore in mouth: Code(s): K13.79 - Other lesions of oral mucosa Status: Acute Assessment and Plan: Likely due to chemotherapy. (7) Electrolyte abnormality: Code(s): E87.8 - Other disorders of electrolyte and fluid balance, not elsewhere classified Status: Acute Assessment and Plan: replace low potassium and magnesium Additional Plan Subjective Date/time seen: 08/11/21 08:15 Denies CP, sob, palpitations. Says he feels fine. Is sitting in bed listening to the radio. Review of Systems Cardiovascular: Cardiovascular: Denies chest pain and Denies palpitations Respiratory: Respiratory: Denies dyspnea Exam Narrative: GENERAL: NAD, cooperative HEENT: Normocephalic, atraumatic, anicteric, nares clear, oropharynx moist and clear, dentition ok NECK: Supple CV: Normal S1, S2, RRR, No MRG RESP: CTAB, Normal work of breathing. EXTREMITIES: Warm and well perfused, no clubbing, cyanosis, or edema. SKIN: warm, dry and intact. NEURO:CN 2-12 grossly intact. Objective Data Vital Signs Vital Signs: Vital Signs - 24 hr 08/10/21 08:56 08/10/21 10:26 08/10/21 10:00 Temperature Pulse Rate 133 H 132 H 118 H Respiratory Rate 27 H Blood Pressure 115/56 L 118/71 115/55 L Pulse Oximetry 95 Oxygen Delivery 08/10/21 11:02 08/10/21 12:00 08/10/21 12:13 Temperature 98.5 F Pulse Rate 142 H 138 H 122 H Respiratory Rate 32 H Blood Pressure 126/75 116/61 116/61 Pulse Oximetry 95 Oxygen Delivery 08/10/21 12:14 08/10/21 12:00 08/10/21 10:00 Temperature Pulse Rate 120 H 118 H Respiratory Rate Blood Pressure Pulse Oximetry Oxygen Delivery Room Air 08/10/21 12:00 08/10/21 13:17 08/10/21 13:53 Temperature Pulse Rate 107 H 102 H 109 H Respiratory Rate Blood Pressure 120/76 103/91 H Pulse Oximetry Oxygen Delivery 08/10/21 14:00 08/10/21 14:00 08/10/21 16:00 Temperature 98.4 F Pulse Rate 99 99 108 H Respiratory Rate 30 H 29 H Blood Pressure 98/77 L 101/58 L Pulse Oximetry 95 95 Oxygen Delivery 08/10/21 18:00 08/10/21 16:00 08/10/21 16:00 Temperature Pulse Rate 97 87 Respiratory Rate 32 H Blood Pressure 113/56 L Pulse Oximetry 96 Oxygen Delivery Room Air 08/10/21 18:00 08/10/21 19:55 08/10/21 20:02 Temperature Pulse Rate 97 104 H 104 H Respiratory Rate Blood Pressure Pulse Oximetry Oxygen Delivery 08/10/21 20:00 08/10/21 20:00 08/10/21 22:00 Temperature 98.1 F Pulse Rate 104 H 84 Respiratory Rate 30 H Blood P
[2021-08-11] MEDS: MAGNESIUM SULF 2 GM/WATER 50ML 2 GM/50 ML BAG IVPB (08:30)
[2021-08-11] MEDS: POTASSIUM CHLORIDE 20 MEQ PACKET (FOR LIQUID) 40 MEQ PO ×2 (08:34→18:17)
[2021-08-11] MEDS: levoFLOXacin 500 MG TABLET PO (08:35)
[2021-08-11] MEDS: FERROUS SULFATE 324 MG TABLET PO ×2 (08:35→17:36)
[2021-08-11] MEDS: ASPIRIN 325 MG ENTERIC TABLET PO (08:35)
[2021-08-11] MEDS: FLUTICASONE PROPIONATE 0.05% NA SPR 16 GM BTL (*BKC) 2 SPRAY NASAL (08:35)
[2021-08-11] MEDS: MULTIVITAMINS THERAPEUTIC TAB (*BKC) 1 TABLET PO (08:35)
[2021-08-11] MEDS: allopurinoL 300 MG TABLET PO (08:35)
[2021-08-11] MEDS: CYANOCOBALAMIN 500 MCG TABLET PO (08:35)
[2021-08-11] MEDS: LORATADINE 10 MG TABLET PO (08:36)
[2021-08-11] MEDS: SILVERGEL (ELTA) 45 ML 1 APPLIC TOPICAL (08:36)
[2021-08-11] MEDS: TRIAMCINOLONE ACET 0.1% CREAM 15 GM TUBE 1 APPLIC TOPICAL ×2 (08:36→20:34)
[2021-08-11] MEDS: METOPROLOL TARTRATE 25 MG TABLET PO ×2 (08:36→20:33)
--- NOTE | 2021-08-11 11:05 | WPDINTPN ---
Progress Note: A&P Assessment and Plan (1) Hypotension: Code(s): I95.9 - Hypotension, unspecified Status: Acute Assessment and Plan: Multifactorial likely secondary to Cardizem PO and Cardizem infusion, beta-dinora, hypovolemia and sepsis -patient received adequate amount of IV fluids, Nicom assessment was on admission to the ICU and patient was not found to be responsive to fluid. I will hold further boluses and continue cautious hydration as patient does have history of abnormal cardiac function and has signs of volume overload in the form of mild edema -patient is off Vince-Synephrine since the afternoon of 08/10/2021 -lactic acid was normal but procalcitonin level was elevated -08/08/2021: Blood cultures negative x2 -08/08/2021: Urine culture is negative 08/06/2021: Blood cultures grew Staph epididymis 1/2 bottles -patient on vancomycin, Zosyn and Levaquin (08/08/2021) CT chest abdomen pelvis does not show any pneumonia or intra-abdominal etiology chest x-ray showed some pulmonary congestion UA was negative Patient has received multiple doses of albumin, will discontinue (2) Chemotherapy induced diarrhea: Code(s): K52.1 - Toxic gastroenteritis and colitis; T45.1X5A - Adverse effect of antineoplastic and immunosuppressive drugs, initial encounter Status: Acute Assessment and Plan: patient is on Imodium -much improved, last bowel movement on 08/09 (3) Atrial fibrillation with rapid ventricular response: Code(s): I48.91 - Unspecified atrial fibrillation Status: Acute Assessment and Plan: Patient remains in atrial fibrillation, rate controlled. 80s to 110. Continue p.o. Cardizem and metoprolol -appreciate cardiology evaluation -patient has been started on aspirin -hemoglobin has been stable -platelet counts are up to 160 (4) Pancytopenia: Code(s): D61.818 - Other pancytopenia Status: Acute Assessment and Plan: secondary to chemotherapy Patient started on filgrastim, white count has increased to 11.3 and bandemia of 15% hemoglobin has been stable and platelet count/ WBC has improved monitor levels (5) Metabolic acidosis: Code(s): E87.2 - Acidosis Status: Acute Assessment and Plan: secondary to diarrhea p.o. bicarb added (6) Sore in mouth: Code(s): K13.79 - Other lesions of oral mucosa Status: Acute Assessment and Plan: could be secondary to chemotherapy topical benzocaine gel ordered (7) Electrolyte abnormality: Code(s): E87.8 - Other disorders of electrolyte and fluid balance, not elsewhere classified Status: Acute Assessment and Plan: replace low potassium and magnesium Additional Plan DVT prophylaxis - SCDs Code Status -full code Total Critical Care Time -33 minutes Due to a high probability of clinically significant, life threatening deterioration, the patient required my highest level of preparedness to intervene emergently and I personally spent this critical care time directly and personally managing the patient. This critical care time included obtaining a history; examining the patient; pulse oximetry; ordering and review of studies; arranging urgent treatment with development of a management plan; evaluation of patient's response to treatment; frequent reassessment; and discussions with other providers. It was exclusive of separately billable procedures and treating other patients and teaching time. Please see Assessment and Plan section and the rest of the note for further information on patient assessment and treatment Subjective Date/time seen: 08/11/21 11:05 08/08/21: Transferred to ICU for hypotension likely related to Cardizem infusion, p.o. Cardizem and beta-dinora, was placed on Vince-Synephrine 08/11/2021: Patient examined the ICU, is awake, alert, oriented. Patient able to answer questions appropriately and follows simple commands in all extr
--- NOTE | 2021-08-11 11:22 | PCFNICU ---
ICU Rounding Note: Pt current nutrition is DBCC/Heart Healthy. Last recorded weight is 123.2 kg, up 13 kg from admit. Bowel Motility:+BM reported 08/09 Labs Reviewed:BUN 29, Na 133, Hct 25.4,Hgb 8.6, Alb 3.1 Meds Noted:KCL powder, Cardizem, Zyloprim, Ferrous Sulfate, Levaquin, Lopressor, MVI, Zosyn, Vancomycin, MVI Skin: stage II PU-right buttock Additional Notes: Patient current on a DBCC/heart healthy diet. Oral intake 10-50% of meals. Diarrhea has improved. Diet supplements add of Glucerna shakes BID providing an additional 220 kcals and 10 gms protein. Protein Modular of Lexa BID continues for wound healing providing 90 kcals and 2.5 gms protein. Agree with diet orders. Following daily in ICU rounds. Will monitor labs, medication, wt, and reported intake every 5 days.
--- NOTE | 2021-08-11 11:27 | WPDCDIQUERY2 ---
CDI Query Clarification Request 08/10 Cardiology documented diagnosis: Shock: ?Code(s): R57.9 - Shock, unspecified ?Status:?Acute ?Assessment and Plan: Currently on Vince-Synephrine although improving. IVF as tolerated.? Monitor volume status closely.? History of cardiomyopathy EF 40-45%.? Broad-spectrum antibiotics possible sepsis.? 08/06/2021 blood culture x1 positive for Staph epidermidis remaining culture 08/08/21 negative to date.? Patient remains critically ill.? Prognosis guarded.? Defer additional management to Critical Care and Primary Service. ?08/10 Underwriting Service Representative documented: Hypotension: ?Code(s): I95.9 - Hypotension, unspecified ?Status:?Acute ?Assessment and Plan: ?multifactorial likely secondary to Cardizem PO/infusion, beta-dinora, hypovolemia and? sepsis ?patient has received significant amount IV fluids. ? Nicom assessment was done yesterday and patient was not found to be responsive to fluid.? I will hold further boluses and continue cautious hydration as patient does have history of abnormal cardiac function and has signs of volume overload in the form of mild edema? now ?continue Vince-Synephrine for blood pressure support and maintain map.? Will try to wean it off ?his lactic acid level was normal but his procalcitonin level was elevated Please clarify if diagnosis: Shock has been ruled in or ruled out or not able to determine
--- NOTE | 2021-08-11 15:25 | PM.PNCARD ---
Progress Note: A&P Assessment and Plan (1) Atrial fibrillation with rapid ventricular response: Code(s): I48.91 - Unspecified atrial fibrillation <YESSENIA Velasquez - Last Filed: 08/11/21 16:18> Status: Acute <YESSENIA Velasquez - Last Filed: 08/11/21 16:18> Assessment and Plan: Chronic atrial fibrillation. RVR during hospitalization probably secondary to sepsis, fever. Rate is reasonably controlled on oral diltiazem and metoprolol. Continue current regimen without change. As previously mentioned he is not anticoagulated which was a decision made by an outside physician, not cardiology. This places him at high risk for an embolic stroke. <YESSENIA Velasquez - Last Filed: 08/11/21 16:18> (2) Shock: Code(s): R57.9 - Shock, unspecified <YESSENIA Velasquez - Last Filed: 08/11/21 16:18> Status: Acute <YESSENIA Velasquez - Last Filed: 08/11/21 16:18> Assessment and Plan: Improved, currently off pressors. Continue broad spectrum abx. <YESSENIA Velasquez - Last Filed: 08/11/21 16:18> (3) Pancytopenia: Code(s): D61.818 - Other pancytopenia <YESSENIA Velasquez - Last Filed: 08/11/21 16:18> Status: Acute <YESSENIA Velasquez - Last Filed: 08/11/21 16:18> Assessment and Plan: As above. Secondary to chemotherapy. Managed by Oncology. Neutropenic precautions. <YESSENIA Velasquez - Last Filed: 08/11/21 16:18> (4) Type 2 diabetes mellitus with other circulatory complications: Code(s): E11.59 - Type 2 diabetes mellitus with other circulatory complications <YESSENIA Velasquez - Last Filed: 08/11/21 16:18> Status: Chronic <YESSENIA Velasquez - Last Filed: 08/11/21 16:18> Assessment and Plan: Per primary service. <YESSENIA Velasquez - Last Filed: 08/11/21 16:18> (5) Congestive heart failure: Qualifiers: Heart failure type: unspecified <YESSENIA Velasquez - Last Filed: 08/11/21 16:18> Code(s): I50.9 - Heart failure, unspecified <YESSENIA Velasquez - Last Filed: 08/11/21 16:18> Status: Chronic <YESSENIA Velasquez - Last Filed: 08/11/21 16:18> Assessment and Plan: Moderate LE edema. Will give 20mg IV lasix x 1. Monitor BP, electrolytes closely. <YESSENIA Velasquez - Last Filed: 08/11/21 16:18> (6) Colon cancer: Code(s): C18.9 - Malignant neoplasm of colon, unspecified <YESSENIA Velasquez - Last Filed: 08/11/21 16:18> Status: Acute <YESSENIA Velasquez - Last Filed: 08/11/21 16:18> Assessment and Plan: Per oncology. <YESSENIA Velasquez - Last Filed: 08/11/21 16:18> Additional Plan Attending addendum: I agree with the above documentation and plan of care as outlined. <Duane Hdz MD - Last Filed: 08/11/21 17:22> Subjective Date/time seen: 08/11/21 15:25 Cardiology follow up for atrial fibrillation Improving. Off pressors and being downgraded to IMU status. Complaining of diarrhea but no cardiac complaints. Rate well controlled now back on oral diltiazem and metoprolol. <YESSENIA Velasquez - Last Filed: 08/11/21 16:18> Review of Systems Review of Systems: All systems reviewed & are unremarkable except as noted in HPI and below <YESSENIA Velasquez - Last Filed: 08/11/21 16:18> Constitutional: Constitutional: Reports as per HPI and Reports no additional constitutional complaints <YESSENIA Velasquez - Last Filed: 08/11/21 16:18> Eyes: Eyes: Reports as per HPI and Reports no additional eye complaints <YESSENIA Velasquez - Last Filed: 08/11/21 16:18> ENT: Reports system reviewed and no additional complaints, except as documented and Reports as per HPI <YESSENIA Velasquez - Last Filed: 08/11/21 16:18> Cardiovascular: Cardiovascular: Reports as per HPI and Reports no additional cardiovascular complaints <YESSENIA Velasquez - Last Filed: 07/14
[2021-08-11] MEDS: FUROSEMIDE INJ 40 MG/4 ML VIAL 20 MG IV PUSH (16:43)
[2021-08-11] MEDS: SIMVASTATIN 10 MG TABLET PO (20:33)
[2021-08-12] VITALS (18 sets, daily range): BP systolic 101–125; BP diastolic 57–84; PULSE 74–123; RESP 19–99; TEMP 36.7–37.3; O2SAT 24–99
[2021-08-12] MEDS: dilTIAZem HCL 60 MG TABLET PO ×3 (05:15→18:16)
[2021-08-12] MEDS: CENTRAL LINE FLUSH 10 ML IV PUSH ×3 (05:17→20:28)
[2021-08-12 05:28] LABS: Hematocrit 27.4 % (42.0-52.0); Hemoglobin 9.2 g/dL (14.0-18.0); Mean Corpuscular HGB Conc 33.6 g/dl (32-36); Mean Corpuscular Hemoglobin 30.6 pg (26-34); Mean Platelet Volume 10.9 fl (7.4-10.4); Platelet Count Result 195 k/mm3 (150-375); Red Blood Count 3.01 M/mm3 (4.6-6.20); Red Cell Distribution Width 16.5 % (11.5-14.5); White Blood Count 14.8 K/mm3 (4.5-10.0)
[2021-08-12 05:42] LABS: Alanine Aminotransferase 26 U/L (6-50); Albumin Level 2.8 g/dL (3.5-5.1); Alkaline Phosphatase 599 U/L (38-126); Anion Gap 2 mmol/L (8-16); Aspartate Amino Transferase 48 U/L (17-59); Bilirubin,Total 1.3 mg/dL (0.2-1.3); Blood Urea Nitrogen 24 mg/dL (9-20); Calcium 8.3 mg/dL (8.4-10.2); Carbon Dioxide 24 mmol/L (22-30); Chloride 107 mmol/L (98-107); Estimated CRCL calculation 90 ml/min; Estimated Glomerular Filt Rate > 60; Glucose 110 mg/dL (65-110); Magnesium 1.6 mg/dL (1.6-2.3); Potassium 3.6 mmol/L (3.4-5.0); Sodium 133 mmol/L (137-145)
[2021-08-12 05:56] LABS: Phosphorus < 0.5 mg/dL (2.5-4.5)
[2021-08-12 06:00] LABS: Band Neutrophils Percent 5 % (0-6); Eosinophils Absolute Manual 0.14 K/mm3 (0.02-0.5); Eosinophils Percent Manual 1 % (0-4); Lymphocytes Absolute Manual 1.03 K/mm3 (1.1-4.5); Macrocytosis 1+ (NORMAL); Monocytes Absolute Manual 0.74 K/mm3 (0.1-0.90); Monocytes Percent Manual 5 % (3-9); Neutrophils Absolute Manual 12.87 K/mm3 (1.3-6.7); Neutrophils Percent Manual 82 % (46-73); Nucleated Red Blood Cells 2 %; Total Cells Counted 100
[2021-08-12 06:01] LABS: Anisocytosis 1+ (NORMAL); Ovalocytes 1+ (NORMAL)
[2021-08-12 06:48] LABS: Platelet Estimate Adequate (Adequate)
[2021-08-12] MEDS: FERROUS SULFATE 324 MG TABLET PO ×2 (08:17→18:16)
[2021-08-12] MEDS: CYANOCOBALAMIN 500 MCG TABLET PO (08:17)
[2021-08-12] MEDS: ASPIRIN 325 MG ENTERIC TABLET PO (08:17)
[2021-08-12] MEDS: MULTIVITAMINS THERAPEUTIC TAB (*BKC) 1 TABLET PO (08:17)
[2021-08-12] MEDS: FLUTICASONE PROPIONATE 0.05% NA SPR 16 GM BTL (*BKC) 2 SPRAY NASAL (08:18)
[2021-08-12] MEDS: allopurinoL 300 MG TABLET PO (08:18)
[2021-08-12] MEDS: SILVERGEL (ELTA) 45 ML 1 APPLIC TOPICAL (08:19)
[2021-08-12] MEDS: TRIAMCINOLONE ACET 0.1% CREAM 15 GM TUBE 1 APPLIC TOPICAL ×2 (08:19→20:27)
[2021-08-12] MEDS: LORATADINE 10 MG TABLET PO (08:19)
[2021-08-12] MEDS: TRIAMCINOLONE ACET 0.5% OINT 15 GM TUBE 1 APPLIC TOPICAL ×3 (08:19→18:15)
[2021-08-12] MEDS: levoFLOXacin 500 MG TABLET PO (09:06)
[2021-08-12] MEDS: METOPROLOL TARTRATE 25 MG TABLET PO (09:06)
--- NOTE | 2021-08-12 09:29 | PM.PNCARD ---
Progress Note: A&P Assessment and Plan (1) Atrial fibrillation with rapid ventricular response: Code(s): I48.91 - Unspecified atrial fibrillation Status: Acute Assessment and Plan: Chronic atrial fibrillation. RVR during hospitalization probably secondary to sepsis, fever. he remains tachycardic but reasonable control. Up titrate metoprolol as BP permits. Continue diltiazem 60 mg p.o. q.6 hours. As previously mentioned he is not anticoagulated which was a decision made by an outside physician, not cardiology. This places him at high risk for an embolic stroke. (2) Congestive heart failure: Qualifiers: Heart failure type: diastolic Heart failure chronicity: chronic Qualified Code(s): I50.32 - Chronic diastolic (congestive) heart failure Code(s): I50.9 - Heart failure, unspecified Status: Chronic Assessment and Plan: Moderate LE edema. But does not appear to be significantly intravascular volume overloaded, reasonably compensated. Received IV Lasix x1 yesterday. Continue to monitor volume status (3) Hypotension: Code(s): I95.9 - Hypotension, unspecified Status: Acute Assessment and Plan: off Vince-Synephrine. Tolerating diltiazem and metoprolol. Remains on IV antibiotics for probable sepsis (4) Pancytopenia: Code(s): D61.818 - Other pancytopenia Status: Acute Assessment and Plan: As above. Secondary to chemotherapy. Managed by Oncology. Neutropenic precautions. (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: Code(s): E11.59 - Type 2 diabetes mellitus with other circulatory complications Status: Chronic Assessment and Plan: Per primary service. (6) Colon cancer: Code(s): C18.9 - Malignant neoplasm of colon, unspecified Status: Acute Assessment and Plan: Per oncology. Subjective Date/time seen: Date of service:08/12/21 09:29 Follow-up for atrial fibrillation with rapid ventricular response patient feeling better overall. Denies chest pain or shortness of breath, no palpitation. Heart rate better overall but remains tachycardic at times. Diltiazem and metoprolol oral resumed. Off Vince-Synephrine. Patient eating breakfast without difficulty. He has no other complaints. Denies nausea vomiting. Review of Systems Review of Systems: All systems reviewed & are unremarkable except as noted in HPI and below Constitutional: Constitutional: Reports as per HPI and Reports no additional constitutional complaints Eyes: Eyes: Reports as per HPI and Reports no additional eye complaints ENT: Reports system reviewed and no additional complaints, except as documented and Reports as per HPI Cardiovascular: Cardiovascular: Reports as per HPI and Reports no additional cardiovascular complaints Respiratory: Respiratory: Reports as per HPI and Reports no additional respiratory complaints Gastrointestinal: Gastrointestinal: Reports as per HPI and Reports no additional gastrointestinal complaints Genitourinary: Genitourinary: Reports no additional male genitourinary complaints and Reports as per HPI Musculoskeletal: Musculoskeletal: Reports no additional musculoskeletal complaints and Reports as per HPI Integumentary/Breasts: Skin/Breast: Reports system reviewed and no additional complaints, except as docu and Reports as per HPI Neurologic: Reports system reviewed and no additional complaints, except as documented and Reports as per HPI Psychiatric: Psychiatric: Reports no additional psychiatric complaints and Reports as per HPI Endocrine: Endocrine: Reports no additional endocrine complaints and Reports as per HPI Hematologic/Lymphatic: Hematologic/Lymphatic: Reports no additional hematologic/lymphatic complaints and Reports as per HPI Allergic/Immunologic: Allergic/Immunologic: Reports no additional allergic/immunologic complaints and Reports as per HPI Exam Narra
--- NOTE | 2021-08-12 11:05 | PC.NURSE ---
Called Dr. Pantoja at 10:55am and left a message stating I needed to speak with her urgently regarding Patient Reddened skin after receiving Vancomycin.
--- NOTE | 2021-08-12 12:21 | PM.IMPN ---
Progress Note: A&P Assessment and Plan (1) Hypotension: Code(s): I95.9 - Hypotension, unspecified Status: Acute (2) Chemotherapy induced diarrhea: Code(s): K52.1 - Toxic gastroenteritis and colitis; T45.1X5A - Adverse effect of antineoplastic and immunosuppressive drugs, initial encounter Status: Acute (3) Atrial fibrillation with rapid ventricular response: Code(s): I48.91 - Unspecified atrial fibrillation Status: Acute (4) Pancytopenia: Code(s): D61.818 - Other pancytopenia Status: Acute (5) Metabolic acidosis: Code(s): E87.2 - Acidosis Status: Acute (6) Sore in mouth: Code(s): K13.79 - Other lesions of oral mucosa Status: Acute (7) Electrolyte abnormality: Code(s): E87.8 - Other disorders of electrolyte and fluid balance, not elsewhere classified Status: Acute (8) Shock: Code(s): R57.9 - Shock, unspecified Status: Acute (9) Essential hypertension: Code(s): I10 - Essential (primary) hypertension Status: Acute (10) Colon cancer: Code(s): C18.9 - Malignant neoplasm of colon, unspecified Status: Acute (11) Morbid obesity: Code(s): E66.01 - Morbid (severe) obesity due to excess calories Status: Acute (12) Type 2 diabetes mellitus with other circulatory complications: Code(s): E11.59 - Type 2 diabetes mellitus with other circulatory complications Status: Chronic Plan 08/12/2021 Elevated procalcitonin without source patient does have chemo port in place Severe hypophosphatemia phos <0.5 Kphos 40mmol ordered Stool for occult blood positive, would benefit from OAC for his AFib may require scope prior to discharge if in agreement to take anticoagulation AGUILAR resolved pt admitted neutropenic now w rising WBC on Neupogen Repeat phos Mag and BMP Subjective Date/time seen: 08/12/21 12:21 Patient doing okay has no complaints at the time of my interview he is sitting up in a chair Exam Narrative: GEN: NAD, AAOx3, cooperative hard of hearing HEENT: NCAT, MMM, EOMI Neck: no JVD Heart: Irregular rate and rhythm Lungs: Decreased breath sounds at bilateral bases Abd: soft, NT, ND, bowel sounds normoactive Ext: moves all, no cyanosis, no clubbing, chronic venous stasis changes over bilateral distal lower extremities Objective Data Vital Signs Vital Signs: Vital Signs - 24 hr 08/11/21 14:00 08/11/21 14:00 08/11/21 16:00 Temperature 97.7 F Pulse Rate 111 H 111 H 101 H Respiratory Rate 28 H 26 H Blood Pressure 130/71 115/54 L Pulse Oximetry 97 98 Oxygen Delivery 08/11/21 16:00 08/11/21 16:00 08/11/21 18:00 Temperature Pulse Rate 103 H 101 H Respiratory Rate Blood Pressure Pulse Oximetry Oxygen Delivery Room Air 08/11/21 20:33 08/11/21 20:00 08/11/21 20:00 Temperature 98.1 F Pulse Rate 93 87 87 Respiratory Rate 28 H Blood Pressure 118/63 Pulse Oximetry 96 Oxygen Delivery 08/11/21 20:00 08/11/21 22:00 08/11/21 20:26 Temperature Pulse Rate 80 Respiratory Rate Blood Pressure Pulse Oximetry 96 Oxygen Delivery Room Air Room Air 08/12/21 00:00 08/12/21 00:00 08/12/21 00:00 Temperature 98.2 F Pulse Rate 85 85 Respiratory Rate 26 H Blood Pressure 104/60 Pulse Oximetry 96 Oxygen Delivery Room Air 08/12/21 02:00 08/12/21 04:00 08/12/21 04:00 Temperature 98.2 F Pulse Rate 95 98 98 Respiratory Rate 26 H Blood Pressure 111/64 Pulse Oximetry 96 Oxygen Delivery 08/12/21 04:00 08/12/21 06:00 08/12/21 07:50 Temperature Pulse Rate 105 H Respiratory Rate Blood Pressure Pulse Oximetry 98 Oxygen Delivery Room Air Room Air 08/12/21 08:00 08/12/21 09:06 08/12/21 08:00 Temperature 98.1 F 98.5 F Pulse Rate 111 H 123 H 100 Respiratory Rate 19 27 H Blood Pressure 114/58 L 114/58 L Pulse Oximetry 98 98 Oxygen Delivery 08/12/21 0
[2021-08-12] MEDS: diphenhydrAMINE HCl INJ 50 MG/ML VIAL IV PUSH (13:03)
--- NOTE | 2021-08-12 13:16 | PC.NURSE ---
Notified Dr. Mckinney that patient skin turned bright red after receiving Vancomycin. Administered Benadryl per Dr. Newell. Vancomycin has been Discontinued.
--- NOTE | 2021-08-12 13:17 | PCOTNOTE ---
Patient eating lunch when attempted to see for OT.
[2021-08-12] MEDS: POTASSIUM PHOS,M-BASIC-D-BASIC 40 MMOL in SODIUM CHLORIDE 0.9% IV 250 ML 43.89 MMOL IVPB (15:03)
--- NOTE | 2021-08-12 15:32 | PC.NURSE ---
notified Dr. Le Patient pulse increases into the 150-160 upon standing. New orders received to increase Metoprolol.
[2021-08-12] MEDS: METOPROLOL TARTRATE 50 MG TAB PO ×2 (15:53→20:29)
[2021-08-12] MEDS: SIMVASTATIN 10 MG TABLET PO (20:28)
[2021-08-12 20:59] LABS: Anion Gap 6 mmol/L (8-16); Blood Urea Nitrogen 23 mg/dL (9-20); Calcium 7.8 mg/dL (8.4-10.2); Carbon Dioxide 22 mmol/L (22-30); Chloride 106 mmol/L (98-107); Estimated CRCL calculation 89 ml/min; Estimated Glomerular Filt Rate > 60; Glucose 145 mg/dL (65-110); Phosphorus 4.7 mg/dL (2.5-4.5); Potassium 5.5 mmol/L (3.4-5.0); Sodium 134 mmol/L (137-145)
[2021-08-13] VITALS (17 sets, daily range): BP systolic 94–112; BP diastolic 51–81; PULSE 77–128; RESP 15–28; TEMP 36.7–37.3; O2SAT 92–100
[2021-08-13] MEDS: dilTIAZem HCL 60 MG TABLET PO ×5 (00:37→23:44)
[2021-08-13 04:44] LABS: Hematocrit 27.3 % (42.0-52.0); Hemoglobin 9.3 g/dL (14.0-18.0); Mean Corpuscular HGB Conc 34.1 g/dl (32-36); Mean Corpuscular Hemoglobin 30.9 pg (26-34); Mean Corpuscular Volume 90.7 fl (80-100); Mean Platelet Volume 10.6 fl (7.4-10.4); Platelet Count Result 195 k/mm3 (150-375); Red Blood Count 3.01 M/mm3 (4.6-6.20); White Blood Count 19.9 K/mm3 (4.5-10.0)
[2021-08-13 04:55] LABS: Alanine Aminotransferase 21 U/L (6-50); Albumin Level 2.6 g/dL (3.5-5.1); Alkaline Phosphatase 588 U/L (38-126); Anion Gap 5 mmol/L (8-16); Aspartate Amino Transferase 29 U/L (17-59); Bilirubin,Total 0.8 mg/dL (0.2-1.3); Blood Urea Nitrogen 22 mg/dL (9-20); Calcium 7.7 mg/dL (8.4-10.2); Carbon Dioxide 22 mmol/L (22-30); Chloride 108 mmol/L (98-107); Estimated CRCL calculation 89 ml/min; Estimated Glomerular Filt Rate > 60; Glucose 110 mg/dL (65-110); Magnesium 1.3 mg/dL (1.6-2.3); Potassium 3.7 mmol/L (3.4-5.0); Sodium 135 mmol/L (137-145)
[2021-08-13] MEDS: METOPROLOL TARTRATE 50 MG TAB PO ×3 (05:05→21:00)
[2021-08-13] MEDS: CENTRAL LINE FLUSH 10 ML IV PUSH ×3 (05:07→21:00)
[2021-08-13 05:14] LABS: Band Neutrophils Percent 8 % (0-6); Lymphocytes Absolute Manual 3.38 K/mm3 (1.1-4.5); Metamyelocytes Percent 3 %; Monocytes Absolute Manual 0.79 K/mm3 (0.1-0.90); Monocytes Percent Manual 4 % (3-9); Myelocytes Percent 2 %; Neutrophils Absolute Manual 14.72 K/mm3 (1.3-6.7); Neutrophils Percent Manual 66 % (46-73); Total Cells Counted 100
[2021-08-13 05:15] LABS: Ovalocytes 1+ (NORMAL); Platelet Estimate Adequate (Adequate); Poikilocytosis 2+ (NORMAL); Tear Drop Cells 1+ (NORMAL); Toxic Granulation Present (NORMAL)
[2021-08-13] MEDS: FERROUS SULFATE 324 MG TABLET PO ×2 (08:37→17:31)
[2021-08-13] MEDS: allopurinoL 300 MG TABLET PO (08:38)
[2021-08-13] MEDS: FLUTICASONE PROPIONATE 0.05% NA SPR 16 GM BTL (*BKC) 2 SPRAY NASAL (08:38)
[2021-08-13] MEDS: ASPIRIN 325 MG ENTERIC TABLET PO (08:38)
[2021-08-13] MEDS: CYANOCOBALAMIN 500 MCG TABLET PO (08:38)
[2021-08-13] MEDS: MULTIVITAMINS THERAPEUTIC TAB (*BKC) 1 TABLET PO (08:38)
[2021-08-13] MEDS: LORATADINE 10 MG TABLET PO (08:39)
[2021-08-13] MEDS: levoFLOXacin 500 MG TABLET PO (08:39)
[2021-08-13] MEDS: SILVERGEL (ELTA) 45 ML 1 APPLIC TOPICAL (08:40)
[2021-08-13] MEDS: TRIAMCINOLONE ACET 0.1% CREAM 15 GM TUBE 1 APPLIC TOPICAL ×2 (08:41→21:00)
[2021-08-13] MEDS: TRIAMCINOLONE ACET 0.5% OINT 15 GM TUBE 1 APPLIC TOPICAL ×3 (08:41→17:31)
--- NOTE | 2021-08-13 11:09 | PM.IMPN ---
Progress Note: A&P Assessment and Plan (1) Hypotension: Code(s): I95.9 - Hypotension, unspecified Status: Acute (2) Chemotherapy induced diarrhea: Code(s): K52.1 - Toxic gastroenteritis and colitis; T45.1X5A - Adverse effect of antineoplastic and immunosuppressive drugs, initial encounter Status: Acute (3) Atrial fibrillation with rapid ventricular response: Code(s): I48.91 - Unspecified atrial fibrillation Status: Acute (4) Pancytopenia: Code(s): D61.818 - Other pancytopenia Status: Acute (5) Metabolic acidosis: Code(s): E87.2 - Acidosis Status: Acute (6) Sore in mouth: Code(s): K13.79 - Other lesions of oral mucosa Status: Acute (7) Electrolyte abnormality: Code(s): E87.8 - Other disorders of electrolyte and fluid balance, not elsewhere classified Status: Acute (8) Shock: Code(s): R57.9 - Shock, unspecified Status: Acute (9) Essential hypertension: Code(s): I10 - Essential (primary) hypertension Status: Acute (10) Colon cancer: Code(s): C18.9 - Malignant neoplasm of colon, unspecified Status: Acute (11) Morbid obesity: Code(s): E66.01 - Morbid (severe) obesity due to excess calories Status: Acute (12) Type 2 diabetes mellitus with other circulatory complications: Code(s): E11.59 - Type 2 diabetes mellitus with other circulatory complications Status: Chronic Plan 08/12/2021 Elevated procalcitonin without source patient does have chemo port in place Severe hypophosphatemia phos <0.5 Kphos 40mmol ordered Stool for occult blood positive, would benefit from OAC for his AFib may require scope prior to discharge if in agreement to take anticoagulation AGUILAR resolved pt admitted neutropenic now w rising WBC on Neupogen Repeat phos Mag and BMP 08/13/21 Hypophosphatemia is correcting additional 20 millimoles given today A.m. Mag phos and BNP Will continue to trend CBC monitor H&H Will need anticoagulation prior to discharge may need colonoscopy if H&H in stable Subjective Date/time seen: 08/13/21 11:09 Patient sitting up in chair doing okay complains of lower extremity swelling denies chest pain abdominal pain or other symptoms Exam Narrative: GEN: NAD, AAOx3, cooperative hard of hearing HEENT: NCAT, MMM, EOMI Neck: no JVD Heart: Irregular rate and rhythm Lungs: Decreased breath sounds at bilateral bases Abd: soft, NT, ND, bowel sounds normoactive Ext: moves all, no cyanosis, no clubbing, chronic venous stasis changes over bilateral distal lower extremities, edema 3+ lower extremity Objective Data Vital Signs Vital Signs: Vital Signs - 24 hr 08/12/21 12:22 08/12/21 12:00 08/12/21 12:00 Temperature 99.2 F Pulse Rate 98 Respiratory Rate 20 Blood Pressure 101/57 L Pulse Oximetry 97 97 98 Oxygen Delivery Room Air Room Air 08/12/21 12:00 08/12/21 14:00 08/12/21 15:53 Temperature Pulse Rate 105 H 121 H 123 H Respiratory Rate Blood Pressure Pulse Oximetry Oxygen Delivery 08/12/21 16:00 08/12/21 16:00 08/12/21 16:00 Temperature 98.5 F Pulse Rate 104 H 109 H Respiratory Rate 99 H Blood Pressure 125/68 Pulse Oximetry 24 L 98 Oxygen Delivery Room Air 08/12/21 18:00 08/12/21 20:29 08/12/21 20:00 Temperature Pulse Rate 110 H 79 81 Respiratory Rate Blood Pressure Pulse Oximetry Oxygen Delivery 08/12/21 20:00 08/12/21 20:00 08/12/21 22:00 Temperature 98.1 F Pulse Rate 81 81 78 Respiratory Rate 20 20 Blood Pressure 111/84 Pulse Oximetry 98 98 Oxygen Delivery Room Air 08/12/21 20:45 08/13/21 00:00 08/13/21 00:00 Temperature Pulse Rate 74 90 90 Respiratory Rate 26 H Blood Pressure Pulse Oximetry 99 93 Oxygen Delivery Room Air Room Air 08/13/21 00:00 08/13/21 02:00 08/13/21 05:05 Temperature 98.7 F Pulse Rate 90 92 108 H Respiratory Rate 26 H B
[2021-08-13] MEDS: MAGNESIUM SULFATE 3GM/D5W100ML 3 GM/100 ML BAG IVPB (12:35)
[2021-08-13] MEDS: POTASSIUM PHOS,M-BASIC-D-BASIC 20 MMOL in SODIUM CHLORIDE 0.9% IV 250 ML 64.17 MMOL IVPB (12:36)
--- NOTE | 2021-08-13 13:37 | PM.PNCARD ---
Progress Note: A&P Assessment and Plan (1) Atrial fibrillation with rapid ventricular response: Code(s): I48.91 - Unspecified atrial fibrillation Status: Acute Assessment and Plan: Chronic atrial fibrillation. RVR during hospitalization probably secondary to sepsis, fever. he remains tachycardic but reasonable control. Up titrate metoprolol as BP permits. Continue diltiazem 60 mg p.o. q.6 hours. As previously mentioned he is not anticoagulated which was a decision made by an outside physician, not cardiology. This places him at high risk for an embolic stroke. (2) Congestive heart failure: Qualifiers: Heart failure type: diastolic Heart failure chronicity: chronic Qualified Code(s): I50.32 - Chronic diastolic (congestive) heart failure Code(s): I50.9 - Heart failure, unspecified Status: Chronic Assessment and Plan: Moderate LE edema. But does not appear to be significantly intravascular volume overloaded, reasonably compensated. Received IV Lasix x1 yesterday. Continue to monitor volume status (3) Hypotension: Code(s): I95.9 - Hypotension, unspecified Status: Acute Assessment and Plan: Tolerating diltiazem and metoprolol. Remains on IV antibiotics for probable sepsis (4) Pancytopenia: Code(s): D61.818 - Other pancytopenia Status: Acute Assessment and Plan: As above. Secondary to chemotherapy. Managed by Oncology. Neutropenic precautions. (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: Code(s): E11.59 - Type 2 diabetes mellitus with other circulatory complications Status: Chronic Assessment and Plan: Per primary service. (6) Colon cancer: Code(s): C18.9 - Malignant neoplasm of colon, unspecified Status: Acute Assessment and Plan: Per oncology. Subjective Date/time seen: 08/13/21 13:37 Cardiology follow up for atrial fibrillation Clinically unchanged. Remains rate controlled in atrial fibrillation. He feels ok today. Review of Systems Review of Systems: All systems reviewed & are unremarkable except as noted in HPI and below Constitutional: Constitutional: Reports as per HPI and Reports no additional constitutional complaints Eyes: Eyes: Reports as per HPI and Reports no additional eye complaints ENT: Reports system reviewed and no additional complaints, except as documented and Reports as per HPI Cardiovascular: Cardiovascular: Reports as per HPI and Reports no additional cardiovascular complaints Respiratory: Respiratory: Reports as per HPI and Reports no additional respiratory complaints Gastrointestinal: Gastrointestinal: Reports as per HPI and Reports no additional gastrointestinal complaints Genitourinary: Genitourinary: Reports no additional male genitourinary complaints and Reports as per HPI Musculoskeletal: Musculoskeletal: Reports no additional musculoskeletal complaints and Reports as per HPI Integumentary/Breasts: Skin/Breast: Reports system reviewed and no additional complaints, except as docu and Reports as per HPI Neurologic: Reports system reviewed and no additional complaints, except as documented and Reports as per HPI Psychiatric: Psychiatric: Reports no additional psychiatric complaints and Reports as per HPI Endocrine: Endocrine: Reports no additional endocrine complaints and Reports as per HPI Hematologic/Lymphatic: Hematologic/Lymphatic: Reports no additional hematologic/lymphatic complaints and Reports as per HPI Allergic/Immunologic: Allergic/Immunologic: Reports no additional allergic/immunologic complaints and Reports as per HPI Exam Const: General: comfortable, no acute distress, alert and awake Orientation/consciousness: patient oriented x3 HENMT: Head: normal to inspection Eyes: General: appearance normal, both eyes and all related structures Pupils: Equal, round and reactive pupils present Neck: Neck: n
--- NOTE | 2021-08-13 13:57 | PCPTNOTE ---
PT attempted to see patient this afternoon. RN in room and states patient just returned to bed due to increased HR while sitting up in chair. HR remains in the 130's at rest. PT held this afternoon and will continue to follow per plan of care.
[2021-08-13 16:51] LABS: Vancomycin Trough 14.3 ug/mL (10.0-20.0)
[2021-08-13] MEDS: SIMVASTATIN 10 MG TABLET PO (21:00)
[2021-08-14] VITALS (18 sets, daily range): BP systolic 98–123; BP diastolic 47–71; PULSE 81–135; RESP 18–28; TEMP 36.4–37.4; O2SAT 96–100
--- NOTE | 2021-08-14 00:51 | PC.NURSE ---
This patient, Donaldo Booker, was transferred to [ IMU] on 08/14/21 at 0051. Personal belongings sent with patient. Report given to [Lulu Silva RN ]. Appropriate documentation sent with patient.
[2021-08-14] MEDS: METOPROLOL TARTRATE INJ 5 MG/5 ML VIAL IV PUSH (01:21)
--- NOTE | 2021-08-14 04:19 | PC.NURSE ---
This patient, Donaldo Booker, was received from ICU 8 on 08/14/21 at 0055. Patient/family oriented to unit policies and routines
[2021-08-14] MEDS: METOPROLOL TARTRATE 50 MG TAB PO ×3 (05:40→20:27)
[2021-08-14] MEDS: dilTIAZem HCL 60 MG TABLET PO ×4 (05:40→23:59)
[2021-08-14] MEDS: CENTRAL LINE FLUSH 10 ML IV PUSH ×3 (05:41→20:18)
[2021-08-14 06:24] LABS: Hematocrit 27.4 % (42.0-52.0); Hemoglobin 9.3 g/dL (14.0-18.0); Mean Corpuscular HGB Conc 33.9 g/dl (32-36); Mean Corpuscular Hemoglobin 31.2 pg (26-34); Mean Corpuscular Volume 91.9 fl (80-100); Mean Platelet Volume 10.4 fl (7.4-10.4); Platelet Count Result 217 k/mm3 (150-375); Red Blood Count 2.98 M/mm3 (4.6-6.20); Red Cell Distribution Width 17.2 % (11.5-14.5); White Blood Count 23.7 K/mm3 (4.5-10.0)
[2021-08-14 06:27] LABS: Alanine Aminotransferase 18 U/L (6-50); Albumin Level 2.7 g/dL (3.5-5.1); Alkaline Phosphatase 593 U/L (38-126); Anion Gap 6 mmol/L (8-16); Aspartate Amino Transferase 32 U/L (17-59); Bilirubin,Total 0.8 mg/dL (0.2-1.3); Blood Urea Nitrogen 24 mg/dL (9-20); Calcium 7.6 mg/dL (8.4-10.2); Carbon Dioxide 21 mmol/L (22-30); Chloride 107 mmol/L (98-107); Estimated CRCL calculation 90 ml/min; Estimated Glomerular Filt Rate > 60; Glucose 106 mg/dL (65-110); Magnesium 1.8 mg/dL (1.6-2.3); Potassium 3.5 mmol/L (3.4-5.0); Sodium 134 mmol/L (137-145)
[2021-08-14 07:23] LABS: Band Neutrophils Percent 3 % (0-6); Eosinophils Absolute Manual 0.71 K/mm3 (0.02-0.5); Eosinophils Percent Manual 3 % (0-4); Hypochromasia 2+ (NORMAL); Lymphocytes Absolute Manual 1.42 K/mm3 (1.1-4.5); Metamyelocytes Percent 8 %; Monocytes Absolute Manual 1.89 K/mm3 (0.1-0.90); Monocytes Percent Manual 8 % (3-9); Myelocytes Percent 8 %; Neutrophils Absolute Manual 15.87 K/mm3 (1.3-6.7); Neutrophils Percent Manual 64 % (46-73); Platelet Estimate Adequate (Adequate); Total Cells Counted 100
[2021-08-14 07:24] LABS: Glucose Point of Care 116 mg/dl (65-105)
[2021-08-14 07:24] LABS: Anisocytosis 1+ (NORMAL); Poikilocytosis 1+ (NORMAL)
[2021-08-14] MEDS: levoFLOXacin 500 MG TABLET PO (07:55)
[2021-08-14] MEDS: ASPIRIN 325 MG ENTERIC TABLET PO (07:55)
[2021-08-14] MEDS: FERROUS SULFATE 324 MG TABLET PO ×2 (07:55→17:06)
[2021-08-14] MEDS: MULTIVITAMINS THERAPEUTIC TAB (*BKC) 1 TABLET PO (07:56)
[2021-08-14] MEDS: CYANOCOBALAMIN 500 MCG TABLET PO (07:56)
[2021-08-14] MEDS: allopurinoL 300 MG TABLET PO (07:57)
[2021-08-14] MEDS: FLUTICASONE PROPIONATE 0.05% NA SPR 16 GM BTL (*BKC) 2 SPRAY NASAL (07:57)
[2021-08-14] MEDS: LORATADINE 10 MG TABLET PO (07:59)
[2021-08-14] MEDS: SILVERGEL (ELTA) 45 ML 1 APPLIC TOPICAL (08:00)
[2021-08-14] MEDS: TRIAMCINOLONE ACET 0.5% OINT 15 GM TUBE 1 APPLIC TOPICAL ×3 (09:40→17:06)
[2021-08-14] MEDS: TRIAMCINOLONE ACET 0.1% CREAM 15 GM TUBE 1 APPLIC TOPICAL ×2 (09:40→20:18)
[2021-08-14 11:50] LABS: Glucose Point of Care 128 mg/dl (65-105)
--- NOTE | 2021-08-14 15:04 | PCNFU ---
Nutrition Follow-Up Complete: Increased Protein Needs R/T wounds AEB stage II pressure ulcer and foot ulcer Goal:Pt to meet >75% of estimated nutritional needs Pt is progressing towards goal. Continue with current goal. Pt current nutrition is Diabetic Carb Consistent/Heart Healthy diet and dietary supplements Last recorded weight is 123.1 kg, stable. Bowel Motility: +BM reported 08/14 Labs Reviewed: Hgb 9.3, Hct 27.4, Alb 2.7, Na 134, Ca 7.6, BUN 24, ALP 593 Meds Noted: Zyloprim, Aspirin, Vitamin B12, Cardizem, Ferrous Sulfate, Heparin Flush, Levaquin, Claritin, Lopressor, Multivitamins, Zosyn Skin: Left plantar foot ulcer, Right buttock pressure ulcer - stage II Additional Notes: Reported intake is 90%, 65%, 85%, and 100% x2. Report of pt drinking dietary supplements. Pt is receiving dietary supplements of Glucerna Shake BID providing an additional 220kcal and 10g of protein per shake and Lexa BID providing an additional 90kcal and 2.5g of protein per packet to aid in wound healing. Agree with diet orders at this time. Will continue to follow. Will monitor labs, medication, wt, and reported intake every 7 days
[2021-08-14 16:22] LABS: Glucose Point of Care 137 mg/dl (65-105)
--- NOTE | 2021-08-14 16:36 | PM.IMPN ---
Progress Note: A&P Assessment and Plan (1) Hypotension: Code(s): I95.9 - Hypotension, unspecified Status: Acute (2) Chemotherapy induced diarrhea: Code(s): K52.1 - Toxic gastroenteritis and colitis; T45.1X5A - Adverse effect of antineoplastic and immunosuppressive drugs, initial encounter Status: Acute (3) Atrial fibrillation with rapid ventricular response: Code(s): I48.91 - Unspecified atrial fibrillation Status: Acute (4) Pancytopenia: Code(s): D61.818 - Other pancytopenia Status: Acute (5) Metabolic acidosis: Code(s): E87.2 - Acidosis Status: Acute (6) Sore in mouth: Code(s): K13.79 - Other lesions of oral mucosa Status: Acute (7) Electrolyte abnormality: Code(s): E87.8 - Other disorders of electrolyte and fluid balance, not elsewhere classified Status: Acute (8) Shock: Code(s): R57.9 - Shock, unspecified Status: Acute (9) Essential hypertension: Code(s): I10 - Essential (primary) hypertension Status: Acute (10) Colon cancer: Code(s): C18.9 - Malignant neoplasm of colon, unspecified Status: Acute (11) Morbid obesity: Code(s): E66.01 - Morbid (severe) obesity due to excess calories Status: Acute (12) Type 2 diabetes mellitus with other circulatory complications: Code(s): E11.59 - Type 2 diabetes mellitus with other circulatory complications Status: Chronic Plan 08/12/2021 Elevated procalcitonin without source patient does have chemo port in place Severe hypophosphatemia phos <0.5 Kphos 40mmol ordered Stool for occult blood positive, would benefit from OAC for his AFib may require scope prior to discharge if in agreement to take anticoagulation AGUILAR resolved pt admitted neutropenic now w rising WBC on Neupogen Repeat phos Mag and BMP 08/13/21 Hypophosphatemia is correcting additional 20 millimoles given today A.m. Mag phos and BNP Will continue to trend CBC monitor H&H Will need anticoagulation prior to discharge may need colonoscopy if H&H in stable 08/14/21 phos pending today cont current care on Zosyn since 08/08 did not tolerate Vanco (Red Man) restart home lasix monitor BP for tolerance LE w worsening erythema know stasis , will order Doppler US r/o mimic of cellulitis Subjective Date/time seen: 08/14/21 16:36 feeling better continues to complain of LE swelling denies pain Exam Narrative: GEN: NAD, AAOx3, cooperative hard of hearing HEENT: NCAT, MMM, EOMI Neck: no JVD Heart: Irregular rate and rhythm Lungs: Decreased breath sounds at bilateral bases Abd: soft, NT, ND, bowel sounds normoactive Ext: moves all, no cyanosis, no clubbing, chronic venous stasis changes over bilateral distal lower extremities, edema 3+ lower extremity, blanching nontender erythema to level of knee Objective Data Vital Signs Vital Signs: Vital Signs - 24 hr 08/13/21 18:00 08/13/21 21:00 08/13/21 20:00 Temperature Pulse Rate 98 101 H 98 Respiratory Rate Blood Pressure Pulse Oximetry Oxygen Delivery 08/13/21 20:00 08/13/21 20:00 08/13/21 22:00 Temperature 98.1 F Pulse Rate 98 98 100 Respiratory Rate 28 H 28 H Blood Pressure 106/68 Pulse Oximetry 98 98 Oxygen Delivery Room Air 08/14/21 00:00 08/14/21 00:00 08/14/21 00:00 Temperature 98.4 F Pulse Rate 105 H 105 H 105 H Respiratory Rate 26 H 26 H Blood Pressure 102/59 L Pulse Oximetry 100 100 Oxygen Delivery Room Air 08/14/21 01:21 08/14/21 03:47 08/14/21 04:00 Temperature 99.3 F Pulse Rate 133 H 108 H Respiratory Rate 24 H Blood Pressure 98/53 L Pulse Oximetry 98 Oxygen Delivery Room Air 08/14/21 02:00 08/14/21 04:00 08/14/21 05:40 Temperature Pulse Rate 116 H 135 H 99 Respiratory Rate Blood Pressure Pulse Oximetry Oxygen Delivery 08/14/21 06:00 08/14/21 07:43 08/14/21 08:00 Temperature 98.1 F Pulse Rate
[2021-08-14] MEDS: SIMVASTATIN 10 MG TABLET PO (20:18)
[2021-08-15] VITALS (15 sets, daily range): BP systolic 97–116; BP diastolic 49–67; PULSE 53–132; RESP 20–28; TEMP 36.2–37.3; O2SAT 97–100
[2021-08-15] MEDS: METOPROLOL TARTRATE 50 MG TAB PO ×3 (05:21→20:28)
[2021-08-15] MEDS: dilTIAZem HCL 60 MG TABLET PO ×3 (05:21→18:00)
[2021-08-15] MEDS: CENTRAL LINE FLUSH 10 ML IV PUSH ×3 (05:23→20:28)
[2021-08-15 05:41] LABS: Hematocrit 28.3 % (42.0-52.0); Hemoglobin 9.2 g/dL (14.0-18.0); Mean Corpuscular HGB Conc 32.5 g/dl (32-36); Mean Corpuscular Volume 95.3 fl (80-100); Mean Platelet Volume 10.2 fl (7.4-10.4); Platelet Count Result 257 k/mm3 (150-375); Red Blood Count 2.97 M/mm3 (4.6-6.20); Red Cell Distribution Width 18.6 % (11.5-14.5); White Blood Count 28.2 K/mm3 (4.5-10.0)
[2021-08-15 05:57] LABS: Alanine Aminotransferase 16 U/L (6-50); Albumin Level 2.6 g/dL (3.5-5.1); Alkaline Phosphatase 533 U/L (38-126); Anion Gap 4 mmol/L (8-16); Aspartate Amino Transferase 35 U/L (17-59); Bilirubin,Total 0.7 mg/dL (0.2-1.3); Blood Urea Nitrogen 27 mg/dL (9-20); Calcium 7.1 mg/dL (8.4-10.2); Carbon Dioxide 22 mmol/L (22-30); Chloride 110 mmol/L (98-107); Estimated CRCL calculation 81 ml/min; Estimated Glomerular Filt Rate > 60; Glucose 109 mg/dL (65-110); Magnesium 1.7 mg/dL (1.6-2.3); Phosphorus 2.4 mg/dL (2.5-4.5); Potassium 3.4 mmol/L (3.4-5.0); Sodium 136 mmol/L (137-145)
[2021-08-15 06:11] LABS: Band Neutrophils Percent 11 % (0-6); Eosinophils Absolute Manual 0.56 K/mm3 (0.02-0.5); Eosinophils Percent Manual 2 % (0-4); Lymphocytes Absolute Manual 2.82 K/mm3 (1.1-4.5); Lymphocytes Percent Manual 10 % (18-44); Monocytes Absolute Manual 2.53 K/mm3 (0.1-0.90); Monocytes Percent Manual 9 % (3-9); Neutrophils Absolute Manual 22.27 K/mm3 (1.3-6.7); Neutrophils Percent Manual 68 % (46-73); Total Cells Counted 100
[2021-08-15 06:12] LABS: Anisocytosis 1+ (NORMAL); Platelet Estimate Adequate (Adequate)
[2021-08-15 07:42] LABS: Glucose Point of Care 104 mg/dl (65-105)
[2021-08-15] MEDS: ASPIRIN 325 MG ENTERIC TABLET PO (10:24)
[2021-08-15] MEDS: FLUTICASONE PROPIONATE 0.05% NA SPR 16 GM BTL (*BKC) 2 SPRAY NASAL (10:25)
[2021-08-15] MEDS: allopurinoL 300 MG TABLET PO (10:25)
[2021-08-15] MEDS: LORATADINE 10 MG TABLET PO (10:25)
[2021-08-15] MEDS: FERROUS SULFATE 324 MG TABLET PO ×2 (10:25→18:00)
[2021-08-15] MEDS: levoFLOXacin 500 MG TABLET PO (10:25)
[2021-08-15] MEDS: CYANOCOBALAMIN 500 MCG TABLET PO (10:25)
[2021-08-15] MEDS: MULTIVITAMINS THERAPEUTIC TAB (*BKC) 1 TABLET PO (10:26)
[2021-08-15] MEDS: BENZOCAINE 20% DENTAL GEL 9 GM TUBE 1 APPLIC BY MOUTH (10:26)
[2021-08-15] MEDS: SILVERGEL (ELTA) 45 ML 1 APPLIC TOPICAL (10:27)
[2021-08-15] MEDS: TRIAMCINOLONE ACET 0.5% OINT 15 GM TUBE 1 APPLIC TOPICAL ×3 (10:27→18:00)
[2021-08-15] MEDS: TRIAMCINOLONE ACET 0.1% CREAM 15 GM TUBE 1 APPLIC TOPICAL ×2 (10:28→20:28)
--- NOTE | 2021-08-15 11:13 | PM.IMPN ---
Progress Note: A&P Assessment and Plan (1) Hypotension: Code(s): I95.9 - Hypotension, unspecified Status: Acute (2) Chemotherapy induced diarrhea: Code(s): K52.1 - Toxic gastroenteritis and colitis; T45.1X5A - Adverse effect of antineoplastic and immunosuppressive drugs, initial encounter Status: Acute (3) Atrial fibrillation with rapid ventricular response: Code(s): I48.91 - Unspecified atrial fibrillation Status: Acute (4) Pancytopenia: Code(s): D61.818 - Other pancytopenia Status: Acute (5) Metabolic acidosis: Code(s): E87.2 - Acidosis Status: Acute (6) Sore in mouth: Code(s): K13.79 - Other lesions of oral mucosa Status: Acute (7) Electrolyte abnormality: Code(s): E87.8 - Other disorders of electrolyte and fluid balance, not elsewhere classified Status: Acute (8) Shock: Code(s): R57.9 - Shock, unspecified Status: Acute (9) Essential hypertension: Code(s): I10 - Essential (primary) hypertension Status: Acute (10) Colon cancer: Code(s): C18.9 - Malignant neoplasm of colon, unspecified Status: Acute (11) Morbid obesity: Code(s): E66.01 - Morbid (severe) obesity due to excess calories Status: Acute (12) Type 2 diabetes mellitus with other circulatory complications: Code(s): E11.59 - Type 2 diabetes mellitus with other circulatory complications Status: Chronic Plan 08/12/2021 Elevated procalcitonin without source patient does have chemo port in place Severe hypophosphatemia phos <0.5 Kphos 40mmol ordered Stool for occult blood positive, would benefit from OAC for his AFib may require scope prior to discharge if in agreement to take anticoagulation AGUILAR resolved pt admitted neutropenic now w rising WBC on Neupogen Repeat phos Mag and BMP 08/13/21 Hypophosphatemia is correcting additional 20 millimoles given today A.m. Mag phos and BNP Will continue to trend CBC monitor H&H Will need anticoagulation prior to discharge may need colonoscopy if H&H in stable 08/14/21 phos pending today cont current care on Zosyn since 08/08 did not tolerate Vanco (Red Man) restart home lasix monitor BP for tolerance LE w worsening erythema know stasis , will order Doppler US r/o mimic of cellulitis 08/15/21 WBC cont to rise Oncology following Benadryl 25mg IV Q4 hrs x 3 doses ; will re-eval at end of shift cont on abx LE swelling improved cardiology following and believes pt is not in vol overload dc planning after cleared by Oncology SNF at dc c/s PT/Ot Subjective Date/time seen: 08/15/21 11:13 pt denies any pain redness spreading up legs and across arms. Exam Narrative: GEN: NAD, AAOx3, cooperative hard of hearing HEENT: NCAT, MMM, EOMI Neck: no JVD Heart:? Irregular rate and rhythm Lungs:? Decreased breath sounds at bilateral bases Abd: soft, NT, ND, bowel sounds normoactive Ext: moves all, no cyanosis, no clubbing, chronic venous stasis changes over bilateral distal lower extremities, edema 3+ lower extremity, blanching nontender erythema to level of knee Objective Data Vital Signs Vital Signs: Vital Signs - 24 hr 08/14/21 12:00 08/14/21 12:00 08/14/21 12:00 Temperature 97.6 F Pulse Rate 83 124 H Respiratory Rate 28 H Blood Pressure 99/47 L Pulse Oximetry 100 Oxygen Delivery Room Air 08/14/21 14:00 08/14/21 14:39 08/14/21 14:40 Temperature Pulse Rate 124 H 107 H 115 H Respiratory Rate 18 Blood Pressure 123/67 Pulse Oximetry Oxygen Delivery 08/14/21 16:00 08/14/21 16:00 08/14/21 16:00 Temperature 97.9 F Pulse Rate 100 102 H Respiratory Rate 24 H Blood Pressure 112/64 Pulse Oximetry 96 Oxygen Delivery Room Air 08/14/21 18:00 08/14/21 20:27 08/14/21 20:00 Temperature 98.4 F Pulse Rate 104 H 99 107 H Respiratory Rate 18 Blood Pressure 104/71 Pulse Oximetry 100 Oxygen Delivery
[2021-08-15 11:34] LABS: Glucose Point of Care 143 mg/dl (65-105)
[2021-08-15] MEDS: FUROSEMIDE 40 MG TABLET PO (13:25)
[2021-08-15] MEDS: diphenhydrAMINE HCl INJ 50 MG/ML VIAL 25 MG IV PUSH ×3 (13:25→20:27)
[2021-08-15 17:27] LABS: Glucose Point of Care 131 mg/dl (65-105)
[2021-08-15] MEDS: SIMVASTATIN 10 MG TABLET PO (20:28)
[2021-08-15 21:03] LABS: Glucose Point of Care 140 mg/dl (65-105)
[2021-08-16] VITALS (13 sets, daily range): BP systolic 94–109; BP diastolic 47–69; PULSE 79–138; RESP 18–36; TEMP 36.4–37.4; O2SAT 93–100
[2021-08-16] MEDS: dilTIAZem HCL 60 MG TABLET PO ×4 (01:02→17:22)
[2021-08-16] MEDS: METOPROLOL TARTRATE 50 MG TAB PO ×3 (06:10→22:00)
[2021-08-16] MEDS: CENTRAL LINE FLUSH 10 ML IV PUSH ×3 (06:11→21:59)
[2021-08-16 06:35] LABS: Hematocrit 26.8 % (42.0-52.0); Hemoglobin 8.7 g/dL (14.0-18.0); Mean Corpuscular HGB Conc 32.5 g/dl (32-36); Mean Corpuscular Hemoglobin 31.1 pg (26-34); Mean Corpuscular Volume 95.7 fl (80-100); Mean Platelet Volume 10.1 fl (7.4-10.4); Platelet Count Result 290 k/mm3 (150-375); Red Cell Distribution Width 19.4 % (11.5-14.5)
[2021-08-16 06:46] LABS: Lactic Acid Reflex 1.5 mmol/L (0.7-2.0)
[2021-08-16 06:57] LABS: Alanine Aminotransferase 15 U/L (6-50); Albumin Level 2.5 g/dL (3.5-5.1); Alkaline Phosphatase 536 U/L (38-126); Anion Gap 7 mmol/L (8-16); Aspartate Amino Transferase 25 U/L (17-59); Bilirubin,Total 0.7 mg/dL (0.2-1.3); Blood Urea Nitrogen 27 mg/dL (9-20); Calcium 6.7 mg/dL (8.4-10.2); Carbon Dioxide 20 mmol/L (22-30); Chloride 106 mmol/L (98-107); Creatine Kinase 22 U/L (55-170); Estimated CRCL calculation 82 ml/min; Estimated Glomerular Filt Rate > 60; Glucose 88 mg/dL (65-110); Lactate Dehydrogenase 397 U/L (313-618); Phosphorus 2.6 mg/dL (2.5-4.5); Potassium 3.1 mmol/L (3.4-5.0); Sodium 133 mmol/L (137-145)
[2021-08-16 07:47] LABS: Band Neutrophils Percent 1 % (0-6); Lymphocytes Absolute Manual 0.84 K/mm3 (1.1-4.5); Monocytes Absolute Manual 0.84 K/mm3 (0.1-0.90); Monocytes Percent Manual 4 % (3-9); Neutrophils Absolute Manual 19.32 K/mm3 (1.3-6.7); Neutrophils Percent Manual 91 % (46-73); Platelet Estimate Adequate (Adequate); Total Cells Counted 100
[2021-08-16 07:50] LABS: Anisocytosis 1+ (NORMAL); Ovalocytes 1+ (NORMAL); Poikilocytosis 1+ (NORMAL)
[2021-08-16] MEDS: POTASSIUM CHLORIDE 20 MEQ PACKET (FOR LIQUID) 40 MEQ PO (12:58)
[2021-08-16] MEDS: LOPERAMIDE HCL 2 MG CAPSULE PO ×2 (12:58→17:22)
[2021-08-16] MEDS: FLUTICASONE PROPIONATE 0.05% NA SPR 16 GM BTL (*BKC) 2 SPRAY NASAL (12:59)
[2021-08-16] MEDS: TRIAMCINOLONE ACET 0.1% CREAM 15 GM TUBE 1 APPLIC TOPICAL ×2 (12:59→21:58)
[2021-08-16] MEDS: BENZOCAINE 20% DENTAL GEL 9 GM TUBE 1 APPLIC BY MOUTH (12:59)
[2021-08-16] MEDS: CYANOCOBALAMIN 500 MCG TABLET PO (12:59)
[2021-08-16] MEDS: TRIAMCINOLONE ACET 0.5% OINT 15 GM TUBE 1 APPLIC TOPICAL ×2 (12:59→16:24)
[2021-08-16] MEDS: FERROUS SULFATE 324 MG TABLET PO ×2 (13:00→16:23)
[2021-08-16] MEDS: levoFLOXacin 500 MG TABLET PO (13:00)
[2021-08-16] MEDS: allopurinoL 300 MG TABLET PO (13:00)
[2021-08-16] MEDS: ASPIRIN 325 MG ENTERIC TABLET PO (13:00)
[2021-08-16] MEDS: FUROSEMIDE 40 MG TABLET PO (13:00)
[2021-08-16] MEDS: SILVERGEL (ELTA) 45 ML 1 APPLIC TOPICAL (13:01)
[2021-08-16] MEDS: LORATADINE 10 MG TABLET PO (13:01)
[2021-08-16] MEDS: MULTIVITAMINS THERAPEUTIC TAB (*BKC) 1 TABLET PO (13:01)
--- NOTE | 2021-08-16 14:54 | PM.PNCARD ---
Progress Note: A&P Assessment and Plan (1) Atrial fibrillation with rapid ventricular response: Code(s): I48.91 - Unspecified atrial fibrillation Status: Acute Assessment and Plan: Persistent atrial fibrillation. RVR during hospitalization probably secondary to sepsis, fever. He is not anticoagulated because of his anemia and thrombocytopenia. Heart rate is uncontrolled this afternoon despite taking Cardizem 60 mg q.6 hours and metoprolol 50 mg q8H. I think this may be because he is going into CHF. (2) Congestive heart failure: Qualifiers: Heart failure type: diastolic Heart failure chronicity: chronic Qualified Code(s): I50.32 - Chronic diastolic (congestive) heart failure Code(s): I50.9 - Heart failure, unspecified Status: Chronic Assessment and Plan: Moderate to severe upper extremity and LE edema, rales. Renal function is back to baseline Furosemide 40 mg daily was restarted yesterday morning The patient appears to be relapsing into heart failure; will give a dose of Lasix 20 mg IV push today. Increase p.o. Lasix to 40 mg b.i.d. Hypokalemic; Add daily Kcl Daily BMP (3) Hypotension: Code(s): I95.9 - Hypotension, unspecified Status: Acute Assessment and Plan: Low blood pressure, sepsis contributing. Tolerating diltiazem and metoprolol with systolic pressure running 97-116 mmHg (4) Pancytopenia: Code(s): D61.818 - Other pancytopenia Status: Acute Assessment and Plan: Secondary to chemotherapy. Managed by Oncology. Improving. (5) Colon cancer: Code(s): C18.9 - Malignant neoplasm of colon, unspecified Status: Acute Assessment and Plan: Metastatic colon cancer. Per oncology. Subjective Date/time seen: FU for persistent a fib, with RVR at times, followed by Dr. Ramírez. Mild LV dysfxn, EF 45-50%. Has metastatic adenocarcinoma of the colon followed by Dr. Alvarenga. Patient not be anticoagulated due to anemia and thrombocytopenia while getting chemotherapy. 08/16/21 14:54 Patient reports his breathing is fine. Remains on RA. Chest x-ray showed worsening CHF versus pneumonia. Telemetry shows HR was running 90-110, but up to 130's-140's this afternoon. Review of Systems Constitutional: Constitutional: Denies chills Eyes: Eyes: Reports no additional eye complaints ENT: Denies epistaxis Cardiovascular: Cardiovascular: Denies chest pain, Reports pedal edema, Reports leg edema, Denies lightheadedness and Denies palpitations Respiratory: Respiratory: Denies dyspnea Gastrointestinal: Gastrointestinal: Denies abdominal pain and Reports diarrhea (3 or 4 times today) Genitourinary: Genitourinary: Denies hematuria Musculoskeletal: Musculoskeletal: Reports no additional musculoskeletal complaints Integumentary/Breasts: Skin/Breast: Reports erythema (Of skin with some peeling) Neurologic: Reports system reviewed and no additional complaints, except as documented Psychiatric: Psychiatric: Reports no additional psychiatric complaints Exam Const: Other: Pleasant older male sitting up in chair, not and distress HENMT: Mouth: Yes moist mucous membranes Eyes: EOM: EOMs intact bilaterally Neck: Neck: supple Resp: Effort & Inspection: abnormal respiratory effort (Looks a little tachypneic) Auscultation: rales (Right lower lobe) Cardio: Rate: tachycardic Rhythm: abnormal rhythm irregularly irregular Heart sounds: no murmurs GI: GI Palp: No Tenderness to palpation present (GI) Skin: General skin exam: No normal color Other: Looks plethoric. Lower extremity skin is thickened, hyper pigmented. He has severe edema of his arms and legs. Neuro: Speech: normal speech Extrem: General: edema and pedal edema Psych: Mental Status: mental status grossly normal Objective Data Vital Si
--- NOTE | 2021-08-16 16:09 | PM.IMPN ---
Progress Note: A&P Assessment and Plan (1) Hypotension: Code(s): I95.9 - Hypotension, unspecified Status: Acute (2) Chemotherapy induced diarrhea: Code(s): K52.1 - Toxic gastroenteritis and colitis; T45.1X5A - Adverse effect of antineoplastic and immunosuppressive drugs, initial encounter Status: Acute (3) Atrial fibrillation with rapid ventricular response: Code(s): I48.91 - Unspecified atrial fibrillation Status: Acute (4) Pancytopenia: Code(s): D61.818 - Other pancytopenia Status: Acute (5) Metabolic acidosis: Code(s): E87.2 - Acidosis Status: Acute (6) Sore in mouth: Code(s): K13.79 - Other lesions of oral mucosa Status: Acute (7) Electrolyte abnormality: Code(s): E87.8 - Other disorders of electrolyte and fluid balance, not elsewhere classified Status: Acute (8) Shock: Code(s): R57.9 - Shock, unspecified Status: Acute (9) Essential hypertension: Code(s): I10 - Essential (primary) hypertension Status: Acute (10) Colon cancer: Code(s): C18.9 - Malignant neoplasm of colon, unspecified Status: Acute (11) Morbid obesity: Code(s): E66.01 - Morbid (severe) obesity due to excess calories Status: Acute (12) Type 2 diabetes mellitus with other circulatory complications: Code(s): E11.59 - Type 2 diabetes mellitus with other circulatory complications Status: Chronic Plan 08/12/2021 Elevated procalcitonin without source patient does have chemo port in place Severe hypophosphatemia phos <0.5 Kphos 40mmol ordered Stool for occult blood positive, would benefit from OAC for his AFib may require scope prior to discharge if in agreement to take anticoagulation AGUILAR resolved pt admitted neutropenic now w rising WBC on Neupogen Repeat phos Mag and BMP 08/13/21 Hypophosphatemia is correcting additional 20 millimoles given today A.m. Mag phos and BNP Will continue to trend CBC monitor H&H Will need anticoagulation prior to discharge may need colonoscopy if H&H in stable 08/14/21 phos pending today cont current care on Zosyn since 08/08 did not tolerate Vanco (Red Man) restart home lasix monitor BP for tolerance LE w worsening erythema know stasis , will order Doppler US r/o mimic of cellulitis 08/15/21 WBC cont to rise Oncology following Benadryl 25mg IV Q4 hrs x 3 doses ; will re-eval at end of shift cont on abx LE swelling improved cardiology following and believes pt is not in vol overload dc planning after cleared by Oncology SNF at dc c/s PT/Ot 08/2021 WBC now down trending Waiting for Dr. Alvarenga to evaluate patient tomorrow morning will discuss possible causes of diffuse erythema with him Loratadine, Pepcid, Solu-Medrol x1 ordered Continue IV antibiotics Anticipate discharge tomorrow after cleared by Oncology Patient discharged to shelter facility personal care worker consulted Subjective Date/time seen: 08/16/21 16:09 Patient doing okay sitting up in bed has no complaints time my interview continues to have diffuse redness denies pain Exam Narrative: GEN: NAD, AAOx3, cooperative hard of hearing HEENT: NCAT, MMM, EOMI Neck: no JVD Heart:? Irregular rate and rhythm Lungs:? Decreased breath sounds at bilateral bases Abd: soft, NT, ND, bowel sounds normoactive Ext: moves all, no cyanosis, no clubbing, chronic venous stasis changes over bilateral distal lower extremities, edema 2+ lower extremity, blanching nontender diffuse erythema involving entire arms and legs back and chest Objective Data Vital Signs Vital Signs: Vital Signs - 24 hr 08/15/21 18:00 08/15/21 20:00 08/15/21 20:28 Temperature 97.4 F L Pulse Rate 115 H 123 H 101 H Respiratory Rate 20 Blood Pressure 111/66 Pulse Oximetry 100 Oxygen Delivery 08/15/21 20:00 08/15/21 20:00 08/15/21 22:00 Temperature Pulse Rate 132 H 105 H Respiratory Rate Bloo
[2021-08-16] MEDS: FUROSEMIDE INJ 40 MG/4 ML VIAL 20 MG IV PUSH (16:23)
[2021-08-16] MEDS: methylPREDNISolone SOD SUCC 125 MG VIAL 60 MG IV PUSH (16:28)
[2021-08-16] MEDS: FAMOTIDINE 20 MG TABLET PO (21:58)
[2021-08-16] MEDS: SIMVASTATIN 10 MG TABLET PO (22:00)
[2021-08-17] VITALS (18 sets, daily range): BP systolic 90–105; BP diastolic 50–63; PULSE 70–107; RESP 18–22; TEMP 35.8–36.7; O2SAT 95–100
[2021-08-17] MEDS: METOPROLOL TARTRATE 50 MG TAB PO ×3 (06:20→21:09)
[2021-08-17] MEDS: dilTIAZem HCL 60 MG TABLET PO ×3 (06:20→18:21)
[2021-08-17] MEDS: CENTRAL LINE FLUSH 10 ML IV PUSH ×3 (06:21→21:15)
[2021-08-17 06:38] LABS: Anion Gap 6 mmol/L (8-16); Blood Urea Nitrogen 28 mg/dL (9-20); Calcium 6.8 mg/dL (8.4-10.2); Carbon Dioxide 19 mmol/L (22-30); Chloride 106 mmol/L (98-107); Creatine Kinase 41 U/L (55-170); Estimated CRCL calculation 90 ml/min; Estimated Glomerular Filt Rate > 60; Glucose 194 mg/dL (65-110); Magnesium 1.9 mg/dL (1.6-2.3); Phosphorus 3.5 mg/dL (2.5-4.5); Potassium 3.5 mmol/L (3.4-5.0); Sodium 131 mmol/L (137-145)
[2021-08-17 06:51] LABS: Basophils Absolute Auto 0.2 K/mm3 (0.0-0.1); Basophils Percent Auto 0.9 % (0.2-1.2); Hematocrit 28.5 % (42.0-52.0); Hemoglobin 9.1 g/dL (14.0-18.0); Immature Granulocyte Absolute 2.02 K/mm3 (0.00-0.031); Immature Granulocyte Percent A 9.9 % (0-0.5); Lymphocytes Absolute Auto 1.66 K/mm3 (0.9-3.2); Lymphocytes Percent Auto 8.1 % (18.3-44.2); Mean Corpuscular HGB Conc 31.9 g/dl (32-36); Mean Corpuscular Hemoglobin 31.1 pg (26-34); Mean Corpuscular Volume 97.3 fl (80-100); Mean Platelet Volume 10.2 fl (7.4-10.4); Monocytes Absolute Auto 0.3 K/mm3 (0.1-0.6); Monocytes Percent Auto 1.3 % (2.6-8.5); Neutrophils Absolute Auto 16.3 K/mm3 (1.3-6.7); Neutrophils Percent Auto 79.8 % (45.5-73.1); Platelet Count Result 335 k/mm3 (150-375); Red Blood Count 2.93 M/mm3 (4.6-6.20); Red Cell Distribution Width 19.5 % (11.5-14.5); White Blood Count 20.4 K/mm3 (4.5-10.0)
[2021-08-17 06:52] LABS: CRP 17.9 mg/dL (<1.0)
[2021-08-17 09:06] LABS: Platelet Estimate Adequate (Adequate)
[2021-08-17 09:07] LABS: Anisocytosis 1+ (NORMAL); Ovalocytes 1+ (NORMAL); Poikilocytosis 1+ (NORMAL)
[2021-08-17] MEDS: POTASSIUM CHLORIDE 20 MEQ TABLET.ER PO (09:08)
[2021-08-17] MEDS: allopurinoL 300 MG TABLET PO (09:08)
[2021-08-17] MEDS: FAMOTIDINE 20 MG TABLET PO ×2 (09:08→21:08)
[2021-08-17] MEDS: levoFLOXacin 500 MG TABLET PO (09:08)
[2021-08-17] MEDS: LORATADINE 10 MG TABLET PO (09:08)
[2021-08-17] MEDS: ASPIRIN 325 MG ENTERIC TABLET PO (09:08)
[2021-08-17] MEDS: CYANOCOBALAMIN 500 MCG TABLET PO (09:08)
[2021-08-17] MEDS: FERROUS SULFATE 324 MG TABLET PO ×2 (09:09→18:21)
[2021-08-17] MEDS: TRIAMCINOLONE ACET 0.1% CREAM 15 GM TUBE 1 APPLIC TOPICAL ×2 (09:09→21:10)
[2021-08-17] MEDS: MULTIVITAMINS THERAPEUTIC TAB (*BKC) 1 TABLET PO (09:09)
[2021-08-17] MEDS: SILVERGEL (ELTA) 45 ML 1 APPLIC TOPICAL (09:09)
[2021-08-17] MEDS: TRIAMCINOLONE ACET 0.5% OINT 15 GM TUBE 1 APPLIC TOPICAL ×3 (09:09→18:21)
[2021-08-17] MEDS: FLUTICASONE PROPIONATE 0.05% NA SPR 16 GM BTL (*BKC) 2 SPRAY NASAL (09:10)
[2021-08-17] MEDS: FUROSEMIDE 40 MG TABLET PO ×2 (09:11→18:21)
--- NOTE | 2021-08-17 09:49 | PM.PNCARD ---
Progress Note: A&P Assessment and Plan (1) Atrial fibrillation with rapid ventricular response: Code(s): I48.91 - Unspecified atrial fibrillation Status: Acute Assessment and Plan: Persistent atrial fibrillation. RVR during hospitalization probably secondary to sepsis, fever. He is not anticoagulated because of his anemia and thrombocytopenia. Heart rate is better controlled today. Continue current meds. (2) Congestive heart failure: Qualifiers: Heart failure type: diastolic Heart failure chronicity: chronic Qualified Code(s): I50.32 - Chronic diastolic (congestive) heart failure Code(s): I50.9 - Heart failure, unspecified Status: Chronic Assessment and Plan: Moderate to severe upper extremity and LE edema, rales. Renal function is back to baseline Furosemide 40 mg daily was restarted yesterday morning The patient appears to be relapsing into heart failure; will give a dose of Lasix 20 mg IV push today. Increase p.o. Lasix to 40 mg b.i.d. Hypokalemic; KCL 40 mg p.o. x1 today Daily BMP (3) Hypotension: Code(s): I95.9 - Hypotension, unspecified Status: Acute Assessment and Plan: Low blood pressure, sepsis contributing. Tolerating diltiazem and metoprolol with systolic pressure running 97-116 mmHg (4) Pancytopenia: Code(s): D61.818 - Other pancytopenia Status: Acute Assessment and Plan: Secondary to chemotherapy. Managed by Oncology. Improving. (5) Colon cancer: Code(s): C18.9 - Malignant neoplasm of colon, unspecified Status: Acute Assessment and Plan: Metastatic colon cancer. Per oncology. Additional Plan Attending addendum: I agree with the above documentation and plan of care as outlined. Subjective Date/time seen: 08/17/21 09:49 Interval history: 70-year-old with atrial fibrillation Date of service 08/17/2021: Heart rate better controlled. Still has some swelling. No chest pain or shortness of breath Review of Systems Review of Systems: All systems reviewed & are unremarkable except as noted in HPI and below Constitutional: Constitutional: Reports as per HPI, Reports no additional constitutional complaints and Denies chills Eyes: Eyes: Reports as per HPI and Reports no additional eye complaints ENT: Reports system reviewed and no additional complaints, except as documented, Reports as per HPI and Denies epistaxis Cardiovascular: Cardiovascular: Reports as per HPI, Reports no additional cardiovascular complaints, Denies chest pain, Reports pedal edema, Reports leg edema, Denies lightheadedness, Denies palpitations and Denies dyspnea Respiratory: Respiratory: Reports as per HPI, Reports no additional respiratory complaints and Denies dyspnea Gastrointestinal: Gastrointestinal: Reports as per HPI, Reports no additional gastrointestinal complaints, Denies abdominal pain and Reports diarrhea (3 or 4 times today) Genitourinary: Genitourinary: Reports no additional male genitourinary complaints, Reports as per HPI and Denies hematuria Musculoskeletal: Musculoskeletal: Reports no additional musculoskeletal complaints and Reports as per HPI Integumentary/Breasts: Skin/Breast: Reports system reviewed and no additional complaints, except as docu, Reports as per HPI and Reports erythema (Of skin with some peeling) Neurologic: Reports system reviewed and no additional complaints, except as documented and Reports as per HPI Psychiatric: Psychiatric: Reports no additional psychiatric complaints and Reports as per HPI Endocrine: Endocrine: Reports no additional endocrine complaints, Reports as per HPI and Denies palpitations Hematologic/Lymphatic: Hematologic/Lymphatic: Reports no additional hematologic/lymphatic complaints and Reports as per HPI Allergic/Immunologic: Allergic/Immunologic: Repo
[2021-08-17] MEDS: POTASSIUM CHLORIDE 20 MEQ TABLET 40 MEQ PO (10:46)
--- NOTE | 2021-08-17 16:19 | PM.IMPN ---
Progress Note: A&P Assessment and Plan (1) Hypotension: Code(s): I95.9 - Hypotension, unspecified Status: Acute (2) Chemotherapy induced diarrhea: Code(s): K52.1 - Toxic gastroenteritis and colitis; T45.1X5A - Adverse effect of antineoplastic and immunosuppressive drugs, initial encounter Status: Acute (3) Atrial fibrillation with rapid ventricular response: Code(s): I48.91 - Unspecified atrial fibrillation Status: Acute (4) Pancytopenia: Code(s): D61.818 - Other pancytopenia Status: Acute (5) Metabolic acidosis: Code(s): E87.2 - Acidosis Status: Acute (6) Sore in mouth: Code(s): K13.79 - Other lesions of oral mucosa Status: Acute (7) Electrolyte abnormality: Code(s): E87.8 - Other disorders of electrolyte and fluid balance, not elsewhere classified Status: Acute (8) Shock: Code(s): R57.9 - Shock, unspecified Status: Acute (9) Essential hypertension: Code(s): I10 - Essential (primary) hypertension Status: Acute (10) Colon cancer: Code(s): C18.9 - Malignant neoplasm of colon, unspecified Status: Acute (11) Morbid obesity: Code(s): E66.01 - Morbid (severe) obesity due to excess calories Status: Acute (12) Type 2 diabetes mellitus with other circulatory complications: Code(s): E11.59 - Type 2 diabetes mellitus with other circulatory complications Status: Chronic Plan 08/12/2021 Elevated procalcitonin without source patient does have chemo port in place Severe hypophosphatemia phos <0.5 Kphos 40mmol ordered Stool for occult blood positive, would benefit from OAC for his AFib may require scope prior to discharge if in agreement to take anticoagulation AGUILAR resolved pt admitted neutropenic now w rising WBC on Neupogen Repeat phos Mag and BMP 08/13/21 Hypophosphatemia is correcting additional 20 millimoles given today A.m. Mag phos and BNP Will continue to trend CBC monitor H&H Will need anticoagulation prior to discharge may need colonoscopy if H&H in stable 08/14/21 phos pending today cont current care on Zosyn since 08/08 did not tolerate Vanco (Red Man) restart home lasix monitor BP for tolerance LE w worsening erythema know stasis , will order Doppler US r/o mimic of cellulitis 08/15/21 WBC cont to rise Oncology following Benadryl 25mg IV Q4 hrs x 3 doses ; will re-eval at end of shift cont on abx LE swelling improved cardiology following and believes pt is not in vol overload dc planning after cleared by [facility] [place]/Ot 08/16/2021 WBC now down trending Waiting for Dr. Alvarenga to evaluate patient tomorrow morning will discuss possible causes of diffuse erythema with him Loratadine, Pepcid, Solu-Medrol x1 ordered Continue IV antibiotics Anticipate discharge tomorrow after cleared by Oncology Patient discharged to alf facility professional healthcare representative consulted 08/17/21 Patient has received IV steroids in addition to his Neupogen anticipate WBCs to rise again He remains on Zosyn and Levaquin for sepsis without identified source and elevated procalcitonin, of note he does have a chemo port in place that has not been removed during this hospitalization Patient with diffuse erythema thought to be secondary to red man syndrome however has recurred without presence of this antibiotic therapy Call left for Dr. Alvarenga to discuss plan of care and what he believes to be the source of patient's infection Cardiology diuresing patient He is accepted to a alf facility prior to returning home pending clearance by Oncology and Cardiology Subjective Date/time seen: 08/17/21 16:19 Patient doing okay has no complaints at time my interview. He has been accepted to alf facility and Case Management is just waiting for discharge to be initiated. Unfortunately patient has been placed back on to diuretic therapy by Cardiology and does not
[2021-08-17] MEDS: SIMVASTATIN 10 MG TABLET PO (21:08)
[2021-08-18] VITALS (15 sets, daily range): BP systolic 94–110; BP diastolic 53–71; PULSE 69–91; RESP 17–20; TEMP 36.1–36.6; O2SAT 97–100
[2021-08-18] MEDS: dilTIAZem HCL 60 MG TABLET PO ×4 (00:41→17:23)
[2021-08-18] MEDS: METOPROLOL TARTRATE 50 MG TAB PO ×2 (06:21→14:06)
[2021-08-18] MEDS: CENTRAL LINE FLUSH 10 ML IV PUSH ×3 (06:21→22:02)
[2021-08-18 06:36] LABS: Hematocrit 27.9 % (42.0-52.0); Hemoglobin 9.3 g/dL (14.0-18.0); Mean Corpuscular HGB Conc 33.3 g/dl (32-36); Mean Corpuscular Hemoglobin 31.5 pg (26-34); Mean Corpuscular Volume 94.6 fl (80-100); Mean Platelet Volume 9.9 fl (7.4-10.4); Platelet Count Result 396 k/mm3 (150-375); Red Blood Count 2.95 M/mm3 (4.6-6.20); Red Cell Distribution Width 19.7 % (11.5-14.5); White Blood Count 24.7 K/mm3 (4.5-10.0)
[2021-08-18 07:24] LABS: Alanine Aminotransferase 14 U/L (6-50); Albumin Level 2.6 g/dL (3.5-5.1); Alkaline Phosphatase 425 U/L (38-126); Anion Gap 7 mmol/L (8-16); Aspartate Amino Transferase 25 U/L (17-59); Bilirubin,Total 0.5 mg/dL (0.2-1.3); Blood Urea Nitrogen 40 mg/dL (9-20); CRP 7.7 mg/dL (<1.0); Calcium 7.3 mg/dL (8.4-10.2); Carbon Dioxide 20 mmol/L (22-30); Chloride 107 mmol/L (98-107); Estimated CRCL calculation 75 ml/min; Estimated Glomerular Filt Rate > 60; Glucose 156 mg/dL (65-110); Magnesium 1.9 mg/dL (1.6-2.3); Phosphorus 3.2 mg/dL (2.5-4.5); Potassium 3.4 mmol/L (3.4-5.0); Sodium 134 mmol/L (137-145)
[2021-08-18 08:39] LABS: Band Neutrophils Percent 6 % (0-6); Basophils Absolute Manual 0.24 K/mm3 (0.0-0.1); Basophils Percent Manual 1 % (0-1); Lymphocytes Absolute Manual 2.47 K/mm3 (1.1-4.5); Monocytes Absolute Manual 1.48 K/mm3 (0.1-0.90); Monocytes Percent Manual 6 % (3-9); Neutrophils Percent Manual 75 % (46-73); Plasma Cells 2; Platelet Estimate Adequate (Adequate); Total Cells Counted 100
[2021-08-18 08:40] LABS: Anisocytosis 1+ (NORMAL); Macrocytosis 1+ (NORMAL); Poikilocytosis 1+ (NORMAL)
[2021-08-18 08:41] LABS: Ovalocytes 1+ (NORMAL); Tear Drop Cells 1+ (NORMAL)
[2021-08-18 08:42] LABS: Hyperchromasia 1+ (NORMAL)
[2021-08-18] MEDS: allopurinoL 300 MG TABLET PO (09:05)
[2021-08-18] MEDS: FERROUS SULFATE 324 MG TABLET PO ×2 (09:05→16:37)
[2021-08-18] MEDS: LORATADINE 10 MG TABLET PO (09:06)
[2021-08-18] MEDS: MULTIVITAMINS THERAPEUTIC TAB (*BKC) 1 TABLET PO (09:06)
[2021-08-18] MEDS: FUROSEMIDE 40 MG TABLET PO ×2 (09:06→16:37)
[2021-08-18] MEDS: ASPIRIN 325 MG ENTERIC TABLET PO (09:06)
[2021-08-18] MEDS: FLUTICASONE PROPIONATE 0.05% NA SPR 16 GM BTL (*BKC) 2 SPRAY NASAL (09:06)
[2021-08-18] MEDS: POTASSIUM CHLORIDE 20 MEQ TABLET.ER PO (09:06)
[2021-08-18] MEDS: CYANOCOBALAMIN 500 MCG TABLET PO (09:07)
[2021-08-18] MEDS: SILVERGEL (ELTA) 45 ML 1 APPLIC TOPICAL (09:07)
[2021-08-18] MEDS: TRIAMCINOLONE ACET 0.5% OINT 15 GM TUBE 1 APPLIC TOPICAL ×3 (09:07→16:37)
[2021-08-18] MEDS: FAMOTIDINE 20 MG TABLET PO ×2 (09:07→21:00)
[2021-08-18] MEDS: TRIAMCINOLONE ACET 0.1% CREAM 15 GM TUBE 1 APPLIC TOPICAL ×2 (09:07→21:01)
--- NOTE | 2021-08-18 10:04 | PM.PNCARD ---
Progress Note: A&P Assessment and Plan (1) Atrial fibrillation with rapid ventricular response: Code(s): I48.91 - Unspecified atrial fibrillation Status: Acute Assessment and Plan: Persistent atrial fibrillation. RVR during hospitalization probably secondary to sepsis, fever. He is not anticoagulated because of his anemia and thrombocytopenia. Heart rate is better controlled today. Continue current meds. (2) Congestive heart failure: Qualifiers: Heart failure type: diastolic Heart failure chronicity: chronic Qualified Code(s): I50.32 - Chronic diastolic (congestive) heart failure Code(s): I50.9 - Heart failure, unspecified Status: Chronic Assessment and Plan: Moderate to severe upper extremity and LE edema, rales. Renal function is back to baseline Increased p.o. Lasix to 40 mg b.i.d. yesterday - still has moderate swelling Will give an additional dose of furosemide 20mg IV once again today Daily BMP Accurate intake and output (3) Hypotension: Code(s): I95.9 - Hypotension, unspecified Status: Acute Assessment and Plan: Low blood pressure, sepsis contributing. Tolerating diltiazem and metoprolol with systolic pressure running 97-116 mmHg Caution with additional diuresis, holding parameters (4) Pancytopenia: Code(s): D61.818 - Other pancytopenia Status: Acute Assessment and Plan: Secondary to chemotherapy. Managed by Oncology. Improving. (5) Colon cancer: Code(s): C18.9 - Malignant neoplasm of colon, unspecified Status: Acute Assessment and Plan: Metastatic colon cancer. Per oncology. Subjective Date/time seen: 08/18/21 10:04 Interval history: 70-year-old with atrial fibrillation Date of service 08/17/2021: Heart rate better controlled. Still has some swelling. No chest pain or shortness of breath Date of service 08/18/2021: Heart rate remains controlled. No shortness of breath. Swelling persists. He is complaining of diarrhea but otherwise is without complaint. Review of Systems Review of Systems: All systems reviewed & are unremarkable except as noted in HPI and below Constitutional: Constitutional: Reports as per HPI, Reports no additional constitutional complaints and Denies chills Eyes: Eyes: Reports as per HPI and Reports no additional eye complaints ENT: Reports system reviewed and no additional complaints, except as documented, Reports as per HPI and Denies epistaxis Cardiovascular: Cardiovascular: Reports as per HPI, Reports no additional cardiovascular complaints, Denies chest pain, Reports pedal edema, Reports leg edema, Denies lightheadedness, Denies palpitations and Denies dyspnea Respiratory: Respiratory: Reports as per HPI, Reports no additional respiratory complaints and Denies dyspnea Gastrointestinal: Gastrointestinal: Reports as per HPI, Reports no additional gastrointestinal complaints, Denies abdominal pain and Reports diarrhea (3 or 4 times today) Genitourinary: Genitourinary: Reports no additional male genitourinary complaints, Reports as per HPI and Denies hematuria Musculoskeletal: Musculoskeletal: Reports no additional musculoskeletal complaints and Reports as per HPI Integumentary/Breasts: Skin/Breast: Reports system reviewed and no additional complaints, except as docu, Reports as per HPI and Reports erythema (Of skin with some peeling) Neurologic: Reports system reviewed and no additional complaints, except as documented and Reports as per HPI Psychiatric: Psychiatric: Reports no additional psychiatric complaints and Reports as per HPI Endocrine: Endocrine: Reports no additional endocrine complaints, Reports as per HPI and Denies palpitations Hematologic/Lymphatic: Hematologic/Lymphatic: Reports no additional hematologic/lymphatic complaints and Reports as
[2021-08-18] MEDS: FUROSEMIDE INJ 40 MG/4 ML VIAL 20 MG IV PUSH (12:33)
[2021-08-18] MEDS: levoFLOXacin 500 MG TABLET PO (17:25)
--- NOTE | 2021-08-18 17:36 | PM.IMPN ---
Progress Note: A&P Assessment and Plan (1) Hypotension: Code(s): I95.9 - Hypotension, unspecified Status: Acute (2) Chemotherapy induced diarrhea: Code(s): K52.1 - Toxic gastroenteritis and colitis; T45.1X5A - Adverse effect of antineoplastic and immunosuppressive drugs, initial encounter Status: Acute (3) Atrial fibrillation with rapid ventricular response: Code(s): I48.91 - Unspecified atrial fibrillation Status: Acute (4) Pancytopenia: Code(s): D61.818 - Other pancytopenia Status: Acute (5) Metabolic acidosis: Code(s): E87.2 - Acidosis Status: Acute (6) Sore in mouth: Code(s): K13.79 - Other lesions of oral mucosa Status: Acute (7) Electrolyte abnormality: Code(s): E87.8 - Other disorders of electrolyte and fluid balance, not elsewhere classified Status: Acute (8) Shock: Code(s): R57.9 - Shock, unspecified Status: Acute (9) Essential hypertension: Code(s): I10 - Essential (primary) hypertension Status: Acute (10) Colon cancer: Code(s): C18.9 - Malignant neoplasm of colon, unspecified Status: Acute (11) Morbid obesity: Code(s): E66.01 - Morbid (severe) obesity due to excess calories Status: Acute (12) Type 2 diabetes mellitus with other circulatory complications: Code(s): E11.59 - Type 2 diabetes mellitus with other circulatory complications Status: Chronic Plan 08/12/2021 Elevated procalcitonin without source patient does have chemo port in place Severe hypophosphatemia phos <0.5 Kphos 40mmol ordered Stool for occult blood positive, would benefit from OAC for his AFib may require scope prior to discharge if in agreement to take anticoagulation AGUILAR resolved pt admitted neutropenic now w rising WBC on Neupogen Repeat phos Mag and BMP 08/13/21 Hypophosphatemia is correcting additional 20 millimoles given today A.m. Mag phos and BNP Will continue to trend CBC monitor H&H Will need anticoagulation prior to discharge may need colonoscopy if H&H in stable 08/14/21 phos pending today cont current care on Zosyn since 08/08 did not tolerate Vanco (Red Man) restart home lasix monitor BP for tolerance LE w worsening erythema know stasis , will order Doppler US r/o mimic of cellulitis 08/15/21 WBC cont to rise Oncology following Benadryl 25mg IV Q4 hrs x 3 doses ; will re-eval at end of shift cont on abx LE swelling improved cardiology following and believes pt is not in vol overload dc planning after cleared by Oncology SNF at [facility] c/[facility] PT/Ot 08/16/2021 WBC now down trending Waiting for Dr. Alvarenga to evaluate patient tomorrow morning will discuss possible causes of diffuse erythema with him Loratadine, Pepcid, Solu-Medrol x1 ordered Continue IV antibiotics Anticipate discharge tomorrow after cleared by Oncology Patient discharged to nursing home facility childcare provider consulted 08/17/21 Patient has received IV steroids in addition to his Neupogen anticipate WBCs to rise again He remains on Zosyn and Levaquin for sepsis without identified source and elevated procalcitonin, of note he does have a chemo port in place that has not been removed during this hospitalization Patient with diffuse erythema thought to be secondary to red man syndrome however has recurred without presence of this antibiotic therapy Call left for Dr. Alvarenga to discuss plan of care and what he believes to be the source of patient's infection Cardiology diuresing patient He is accepted to a nursing home facility prior to returning home pending clearance by Oncology and Cardiology 08/18/2021 interval history: patient with history of metastatic adenocarcinoma of colon and seen by Oncology and patient has been treated with chemotherapy patient presented emergency depart with persistent down and upon arrival had a leukopenia with white counts?0.7 patient was given neopogen and was started on
--- NOTE | 2021-08-18 18:12 | PC.NURSE ---
This patient, Donaldo Booker, was received from [ IMU] on 08/18/21 at 1812. Patient/family oriented to unit policies and routines
[2021-08-18] MEDS: SIMVASTATIN 10 MG TABLET PO (21:00)
[2021-08-19] VITALS (7 sets, daily range): BP systolic 98–104; BP diastolic 62–70; PULSE 72–124; RESP 16–18; TEMP 36.6–36.8; O2SAT 97–99
[2021-08-19] MEDS: dilTIAZem HCL 60 MG TABLET PO ×3 (00:04→11:30)
[2021-08-19] MEDS: METOPROLOL TARTRATE 50 MG TAB PO ×3 (00:11→12:29)
[2021-08-19] MEDS: CENTRAL LINE FLUSH 10 ML IV PUSH (05:10)
[2021-08-19 07:29] LABS: Glucose Point of Care 109 mg/dl (65-105)
[2021-08-19] MEDS: allopurinoL 300 MG TABLET PO (08:34)
[2021-08-19] MEDS: FERROUS SULFATE 324 MG TABLET PO (08:34)
[2021-08-19] MEDS: POTASSIUM CHLORIDE 20 MEQ TABLET.ER PO (08:34)
[2021-08-19] MEDS: FUROSEMIDE 40 MG TABLET PO (08:35)
[2021-08-19] MEDS: ASPIRIN 325 MG ENTERIC TABLET PO (08:35)
[2021-08-19] MEDS: FLUTICASONE PROPIONATE 0.05% NA SPR 16 GM BTL (*BKC) 2 SPRAY NASAL (08:35)
[2021-08-19] MEDS: CYANOCOBALAMIN 500 MCG TABLET PO (08:35)
[2021-08-19] MEDS: TRIAMCINOLONE ACET 0.1% CREAM 15 GM TUBE 1 APPLIC TOPICAL (08:36)
[2021-08-19] MEDS: MULTIVITAMINS THERAPEUTIC TAB (*BKC) 1 TABLET PO (08:36)
[2021-08-19] MEDS: SILVERGEL (ELTA) 45 ML 1 APPLIC TOPICAL (08:36)
[2021-08-19] MEDS: TRIAMCINOLONE ACET 0.5% OINT 15 GM TUBE 1 APPLIC TOPICAL ×2 (08:43→12:29)
[2021-08-19] MEDS: LOPERAMIDE HCL 2 MG CAPSULE PO (09:44)
[2021-08-19] MEDS: FAMOTIDINE 20 MG TABLET PO (09:44)
[2021-08-19] MEDS: LORATADINE 10 MG TABLET PO (09:44)
[2021-08-19 11:17] LABS: EDCOVIDSCREEN Negative (Negative)
[2021-08-19 11:37] LABS: Glucose Point of Care 155 mg/dl (65-105)
--- NOTE | 2021-08-19 12:07 | PM.DS ---
DS: Admitting Diagnosis Discharge Date 08/19/2021 Admitting Diagnosis Persistent diarrhea DS: Discharge Diagnosis Discharge Diagnosis (1) Hypotension: Code(s): I95.9 - Hypotension, unspecified Status: Acute (2) Chemotherapy induced diarrhea: Code(s): K52.1 - Toxic gastroenteritis and colitis; T45.1X5A - Adverse effect of antineoplastic and immunosuppressive drugs, initial encounter Status: Acute (3) Atrial fibrillation with rapid ventricular response: Code(s): I48.91 - Unspecified atrial fibrillation Status: Acute (4) Pancytopenia: Code(s): D61.818 - Other pancytopenia Status: Acute (5) Metabolic acidosis: Code(s): E87.2 - Acidosis Status: Acute (6) Sore in mouth: Code(s): K13.79 - Other lesions of oral mucosa Status: Acute (7) Electrolyte abnormality: Code(s): E87.8 - Other disorders of electrolyte and fluid balance, not elsewhere classified Status: Acute (8) Shock: Code(s): R57.9 - Shock, unspecified Status: Acute (9) Essential hypertension: Code(s): I10 - Essential (primary) hypertension Status: Acute (10) Colon cancer: Code(s): C18.9 - Malignant neoplasm of colon, unspecified Status: Acute (11) Morbid obesity: Code(s): E66.01 - Morbid (severe) obesity due to excess calories Status: Acute (12) Type 2 diabetes mellitus with other circulatory complications: Code(s): E11.59 - Type 2 diabetes mellitus with other circulatory complications Status: Chronic Plan 08/12/2021 Elevated procalcitonin without source patient does have chemo port in place Severe hypophosphatemia phos <0.5 Kphos 40mmol ordered Stool for occult blood positive, would benefit from OAC for his AFib may require scope prior to discharge if in agreement to take anticoagulation AGUILAR resolved pt admitted neutropenic now w rising WBC on Neupogen Repeat phos Mag and BMP 08/13/21 Hypophosphatemia is correcting additional 20 millimoles given today A.m. Mag phos and BNP Will continue to trend CBC monitor H&H Will need anticoagulation prior to discharge may need colonoscopy if H&H in stable 08/14/21 phos pending today cont current care on Zosyn since 08/08 did not tolerate Vanco (Red Man) restart home lasix monitor BP for tolerance LE w worsening erythema know stasis , will order Doppler US r/o mimic of cellulitis 08/15/21 WBC cont to rise Oncology following Benadryl 25mg IV Q4 hrs x 3 doses ; will re-eval at end of shift cont on abx LE swelling improved cardiology following and believes pt is not in vol overload dc planning after cleared by Oncology [facility] PT/Ot 08/16/2021 WBC now down trending Waiting for Dr. Alvarenga to evaluate patient tomorrow morning will discuss possible causes of diffuse erythema with him Loratadine, Pepcid, Solu-Medrol x1 ordered Continue IV antibiotics Anticipate discharge tomorrow after cleared by Oncology Patient discharged to [facility] facility care team coordinator scheduler consulted 08/17/21 Patient has received IV steroids in addition to his Neupogen anticipate WBCs to rise again He remains on Zosyn and Levaquin for sepsis without identified source and elevated procalcitonin, of note he does have a chemo port in place that has not been removed during this hospitalization Patient with diffuse erythema thought to be secondary to red man syndrome however has recurred without presence of this antibiotic therapy Call left for Dr. Alvarenga to discuss plan of care and what he believes to be the source of patient's infection Cardiology diuresing patient He is accepted to a [facility] facility prior to returning home pending clearance by Oncology and Cardiology 08/18/2021 interval history: patient with history of metastatic adenocarcinoma of colon and seen by Oncology and patient has been treated with chemotherapy patient presented emergency depart with persistent down and
[2021-08-19] MEDS: HEPARIN SODIUM LOCK FLUSH 500 UNITS/5 ML VIAL IV PUSH (12:30)
== END 2021-08-19 14:20 | DRG 393 ==
LOC: ANHED 17:54 → ANHIMU 19:32 → ANHICU 08-08 17:11 → ANHIMU 08-14 01:12 → ANH2MED 08-18 18:06
PROVIDERS: Emergency Medicine; Hospitalist; Internal Medicine; Admitting Provider Family Medicine; Emergency Provider Family Medicine; PCP Family Medicine; Visit Provider Student in an Organized Health Care Education/Training Program
DX: K52.1 Toxic gastroenteritis and colitis (principal); A41.9 Sepsis, unspecified organism; D61.810 Antineoplastic chemotherapy induced pancytopenia; N17.9 Acute kidney failure, unspecified; E87.1 Hypo-osmolality and hyponatremia; C78.7 Secondary malignant neoplasm of liver and intrahepatic bile duct; E87.2 Acidosis; I42.9 Cardiomyopathy, unspecified; R57.9 Shock, unspecified; I48.20 Chronic atrial fibrillation, unspecified; Z20.822 Contact with and (suspected) exposure to COVID-19; I95.2 Hypotension due to drugs; T46.1X5A Adverse effect of calcium-channel blockers, initial encounter; K13.79 Other lesions of oral mucosa; E11.9 Type 2 diabetes mellitus without complications; Z90.49 Acquired absence of other specified parts of digestive tract; E11.42 Type 2 diabetes mellitus with diabetic polyneuropathy; I11.0 Hypertensive heart disease with heart failure; E11.59 Type 2 diabetes mellitus with other circulatory complications; E11.51 Type 2 diabetes mellitus with diabetic peripheral angiopathy without gangrene; K74.60 Unspecified cirrhosis of liver; E66.01 Morbid (severe) obesity due to excess calories; Z68.37 Body mass index [BMI] 37.0-37.9, adult; I50.9 Heart failure, unspecified; M10.9 Gout, unspecified; Z79.01 Long term (current) use of anticoagulants; E78.2 Mixed hyperlipidemia; E88.81 Metabolic syndrome and other insulin resistance; Z89.422 Acquired absence of other left toe(s); E86.0 Dehydration; T45.1X5A Adverse effect of antineoplastic and immunosuppressive drugs, initial encounter; Y92.9 Unspecified place or not applicable; E86.1 Hypovolemia; R31.29 Other microscopic hematuria; R74.8 Abnormal levels of other serum enzymes; Z85.038 Personal history of other malignant neoplasm of large intestine; E83.39 Other disorders of phosphorus metabolism
CPT/HCPCS: 36415; 71045; 80048; 80053; 80202; 81001; 82274; 82550; 82948; 83605; 83615; 83690; 83735; 84100; 84145; 84484; 85025; 85027; 85055; 85610; 86140; 87040; 87077; 87086; 87177; 87186; 87209; 87426; 87493; 93005; 93970; 96365; 97110; 97116; 97162; 97166; 97530; 97535; 99285; A9270; C9803; J0610; J1160; J1200; J1642; J1940; J2370; J2543; J2930; J3370; J3475; J3480; J7030; J7040; J7050; J7060; P9045; P9047; Q5101

== ENCOUNTER 2021-08-28 20:42 | Emergency (ER) | payer MEDICARE, MEDICAID, SELFPAY ==
[2021-08-28 20:42] VITALS: BP 111/57; PULSE 102; RESP 18; TEMP 36.8; O2SAT 100
--- NOTE | 2021-08-28 21:36 | ED.EPISTAXIS ---
HPI - Epistaxis General Chief complaint: Epistaxis Stated complaint: EPITAXIS 2-3 DAYS Time Seen by Provider: 08/28/21 20:46 History of Present Illness HPI Narrative: 70-year-old male presents emergency room secondary to intermittent nosebleed from the right nares for the last week. He denies any trauma. Denies being on any blood thinners. He states that it was not bleeding and bleed for little while then was tried to gradually stop. Had another bleed just prior to coming to the emergency room. Denies coughing up any blood. Has no other signs of bleeding such as blood in his urine or stool. Related Data Home Medications Medication Instructions Recorded Confirmed fluticasone propionate 50 2 spray intranasal DAILY 02/05/19 08/06/21 mcg/actuation nasal spray,suspension (Allergy Relief (fluticasone)) loperamide 2 mg capsule (Imodium 2 mg PO Q4H PRN Diarrhea 09/20/19 08/06/21 A-D) cyanocobalamin (vitamin B-12) 500 mcg PO DAILY 12/10/19 08/06/21 1,000 mcg tablet (Vitamin B-12) ferrous sulfate 325 mg (65 mg 325 mg PO Q12H 12/10/19 08/06/21 iron) tablet diltiazem HCl 240 mg capsule,24 240 mg PO DAILY 06/03/20 08/06/21 hr,extended release loratadine 10 mg tablet (Claritin) 10 mg PO DAILY 10/08/20 08/06/21 multivitamin 1 tablet PO DAILY 10/08/20 08/06/21 triamcinolone acetonide 0.1 % 1 applic topical BID 10/08/20 08/06/21 topical cream Allergies Allergy/AdvReac Type Severity Reaction Status Date / Time vancomycin Allergy Rash Verified 08/17/21 07:48 Review of Systems Review of Systems: CONSTITUTIONAL: Denies fever, chills, or sweats. EYES: Denies visual changes, redness, or discharge. ENT: Denies rhinorrhea, congestion, sore throat, or otalgia. Intermittent bleeding from the right nostril CARDIOVASCULAR: Denies chest pain, palpitations, or edema. RESPIRATORY: Denies cough or dyspnea. GASTROINTESTINAL: Denies abdominal pain, nausea, vomiting, or diarrhea. GENITOURINARY: Denies dysuria or hematuria. SKIN: Denies rash or itching. MUSCULOSKELETAL: Denies back pain, joint pain, or myalgia. NEUROLOGIC: Denies headache, numbness, or weakness. PSYCHIATRIC: Denies anxiety or depression. FOR[facility]LY [facility] Past Medical History Medical History Adenocarcinoma of sigmoid colon (~07/28/18) Status post low anterior resection and chemotherapy. Atrial fibrillation Chronic anemia Congestive heart failure Echocardiogram in January 2020 showed mildly enlarged left ventricle with mild reduction left ventricular function with an EF of 45 to 50% as well as significant biatrial dilatation and small amounts of atrial, mitral, and tricuspid regurgitation. 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 Metabolic syndrome X Mixed hyperlipidemia Osteomyelitis Status post amputation of left 2nd toe. Peripheral vascular disease Type 2 diabetes mellitus Surgical History Surgical History History of amputation of lesser toe of left foot Treatment of osteomyelitis in 10/2013 & 01/2015. History of partial colectomy (~07/2017) Hand assisted laparoscopic low anterior resection with colorectal anastomosis for treatment of colon cancer. History of skin graft To poorly healing wound of the lower extremity. Port-A-Cath in place Family History Family History Mother Diabetes mellitus Father Cerebrovascular accident Other Family history of arthritis Family history of cardiovascular disease Family history of heart disease in male family member before age 55 Family history of thyroid disease Social History Social History Social History: The patient lives alone in his own apartment in [facility]
--- NOTE | 2021-08-28 21:40 | PC.NURSE ---
called [facility] to request transport. ETA [id number]
--- NOTE | 2021-08-28 21:48 | PC.NURSE ---
report called to [facility]. ems called for transport
--- NOTE | 2021-08-28 22:48 | PC.NURSE ---
@[phone] Par[facility] accepted transfer with - 03/15 ETA @2221 cancelled [facility]
--- NOTE | 2021-08-28 22:57 | PC.NURSE ---
[facility] here.
[2021-08-28 23:09] VITALS: BP 102/72; PULSE 102; RESP 18; O2SAT 99
== END 2021-08-28 23:11 | disposition home or self-care (01) ==
PROVIDERS: Emergency Provider Emergency Medicine; PCP Family Medicine
DX: R04.0 Epistaxis (principal); I48.91 Unspecified atrial fibrillation; I50.9 Heart failure, unspecified; I11.0 Hypertensive heart disease with heart failure; E11.42 Type 2 diabetes mellitus with diabetic polyneuropathy; E11.51 Type 2 diabetes mellitus with diabetic peripheral angiopathy without gangrene; I73.9 Peripheral vascular disease, unspecified; E78.2 Mixed hyperlipidemia; E88.81 Metabolic syndrome and other insulin resistance; D64.9 Anemia, unspecified; M10.9 Gout, unspecified; Z85.038 Personal history of other malignant neoplasm of large intestine; Z90.49 Acquired absence of other specified parts of digestive tract; Z89.422 Acquired absence of other left toe(s); Z79.01 Long term (current) use of anticoagulants; Z79.82 Long term (current) use of aspirin; Z79.84 Long term (current) use of oral hypoglycemic drugs
CPT/HCPCS: 30901; 99283

== ENCOUNTER 2021-12-24 09:44 | Outpatient (RCR) | payer MEDICARE, SELFPAY ==
[2021-12-24 10:42] VITALS: BMI 36.1
== END 2022-03-16 07:28 | disposition home or self-care (01) ==
LOC: ANHWOC 09:44
PROVIDERS: PCP Family Medicine; Visit Provider Nurse Practitioner
DX: L97.919 Non-pressure chronic ulcer of unspecified part of right lower leg with unspecified severity (principal); L97.929 Non-pressure chronic ulcer of unspecified part of left lower leg with unspecified severity
CPT/HCPCS: 29581

== ENCOUNTER 2022-02-01 10:54 | Observation (INO) | payer MEDICARE, MEDICAID, SELFPAY ==
[2022-02-01] VITALS (27 sets, daily range): BP systolic 104–121; BP diastolic 55–92; PULSE 75–146; RESP 16–32; TEMP 35.7–37.3; O2SAT 92–100; BMI 33.5
--- NOTE | ~2022-02-01 | US_ITS ---
EXAMINATION: US venous doppler [facility] DATE: 02/01/2022 13:20 INDICATION: Lower limb edema. TECHNIQUE: Grayscale ultrasound images without and with compression and Doppler ultrasound images of the bilateral lower extremity veins were obtained. COMPARISON: Ultrasound 08/15/2021 FINDINGS: The visualized portions of right common femoral vein, profunda (deep) femoral vein, femoral vein, pop liteal vein, peroneal veins, posterior tibial veins, and greater saphenous vein outflow are patent. The visualized portions of left common femoral vein, profunda femoral vein, femoral vein, popliteal v ein, peroneal veins, posterior tibial veins, and greater saphenous vein outflow are patent. IMPRESSION: 1. No deep venous thrombosis. Reviewed, dictated and finalized at location A. W DOWN
--- NOTE | ~2022-02-01 | XR_ITS ---
EXAMINATION: XR chest 1V portable DATE: 02/01/2022 12:07 INDICATION: Arrhythmia. TECHNIQUE: A single frontal view of the chest was obtained. COMPARISON: Chest single view 08/16/2021, chest CT 07/22/2021 FINDINGS: There is a small left pleural effusion. There are airspace opacities in left lower lung zon e. No pneumothorax. Cardiomegaly is noted. There is a left subclavian port with tip in superior vena cava. IMPRESSION: 1. Airspace opacities in left lower lung zone, consistent with atelectasis versus pneumonia. 2. Small left pleural effusion. 3. Cardiomegaly. Reviewed, dictated and finalized at location A. [employer] IMPRESSION: 1. Airspace opacities in left lower lung zone, consistent with atelectasis vers us pneumonia. 2. Small left pleural effusion. 3. Cardiomegaly.
--- NOTE | 2022-02-01 11:20 | ECG_ITS ---
Measurements Intervals [place] Rate: 108 P: AL: 0 QRS: -49 QRSD: 118 T: 76 QT: 364 QTc: 488 Interpretive Statements ATRIAL FIBRILLATION WITH RAPID VENTRICULAR RESPONSE INCOMPLETE RIGHT BUNDLE BRANCH BLOCK LEFT ANTERIOR FASCICULAR BLOCK LEFT VENTRICULAR HYPERTROPHY WITH ST-T CHANGE BASELINE ARTIFACT- I, II, AVR ABNORMAL ECG COMPARED TO ECG 08/06/2021 16:46:21 HEART RATE HAS DECREASED Electronically Signed On 02-01-2022 11:37:27 PATIENT CARE PROVIDER by Juan M Kelly D.O.
[2022-02-01 11:54] LABS: Basophils Absolute Auto 0.1 K/mm3 (0.0-0.1); Basophils Percent Auto 0.8 % (0.2-1.2); Eosinophils Absolute Auto 0.6 K/mm3 (0-0.3); Eosinophils Percent Auto 7.3 % (0-4.4); Hemoglobin 10.8 g/dL (14.0-18.0); Immature Granulocyte Absolute 0.05 K/mm3 (0.00-0.031); Immature Granulocyte Percent A 0.6 % (0-0.5); Lymphocytes Percent Auto 18.9 % (18.3-44.2); Mean Corpuscular HGB Conc 32.7 g/dl (32-36); Mean Corpuscular Hemoglobin 29.7 pg (26-34); Mean Corpuscular Volume 90.7 fl (80-100); Mean Platelet Volume 9.2 fl (7.4-10.4); Monocytes Absolute Auto 0.8 K/mm3 (0.1-0.6); Monocytes Percent Auto 9.7 % (2.6-8.5); Neutrophils Absolute Auto 5.3 K/mm3 (1.3-6.7); Neutrophils Percent Auto 62.7 % (45.5-73.1); Platelet Count Result 197 k/mm3 (150-375); Red Blood Count 3.64 M/mm3 (4.6-6.20); Red Cell Distribution Width 16.6 % (11.5-14.5); White Blood Count 8.5 K/mm3 (4.5-10.0)
[2022-02-01 12:04] LABS: Alanine Aminotransferase 27 U/L (6-50); Albumin Level 4.1 g/dL (3.5-5.1); Alkaline Phosphatase 378 U/L (38-126); Anion Gap 12 mmol/L (8-16); Aspartate Amino Transferase 32 U/L (17-59); Bilirubin,Total 0.7 mg/dL (0.2-1.3); Blood Urea Nitrogen 52 mg/dL (9-20); Calcium 9.6 mg/dL (8.4-10.2); Carbon Dioxide 25 mmol/L (22-30); Chloride 102 mmol/L (98-107); Estimated Glomerular Filt Rate 46; Glucose 155 mg/dL (65-110); Lipase 83 U/L (23-300); Potassium 4.3 mmol/L (3.4-5.0); Sodium 139 mmol/L (137-145)
[2022-02-01 12:07] LABS: INR 1.2; Prothrombin Time 14.8 Seconds (11.1-14.7)
[2022-02-01 12:08] LABS: Partial Thromboplastin Time 32.2 SECONDS (22.3-36.8)
[2022-02-01 12:16] LABS: Troponin I < 0.012 ng/mL (0.000-0.034)
--- NOTE | 2022-02-01 12:38 | ED.GENADULT ---
HPI - General Adult General Chief complaint: Extremity Injury, Lower Stated complaint: left leg discolored Time Seen by Provider: 02/01/22 12:01 History of Present Illness HPI narrative: 71-year-old male with history of congestive heart failure, A. fib with RVR, venous insufficiency and lower extremity cellulitis presented to the emergency department for evaluation of worsening lower extremity swelling and erythema. Patient does have wound care at home and home health care sent him in for further evaluation. Patient feels that his legs are worsened. Patient has history of type 2 diabetes, venous insufficiency and cellulitis. Related Data Home Medications Medication Instructions Recorded Confirmed fluticasone propionate 50 2 spray intranasal DAILY 02/05/19 02/01/22 mcg/actuation nasal spray,suspension (Allergy Relief (fluticasone)) loperamide 2 mg capsule (Imodium 2 mg PO Q4H PRN Diarrhea 09/20/19 02/01/22 A-D) cyanocobalamin (vitamin B-12) 500 mcg PO DAILY 12/10/19 02/01/22 1,000 mcg tablet (Vitamin B-12) ferrous sulfate 325 mg (65 mg 325 mg PO Q12H 12/10/19 02/01/22 iron) tablet diltiazem HCl 240 mg capsule,24 240 mg PO DAILY 06/03/20 02/01/22 hr,extended release loratadine 10 mg tablet (Claritin) 10 mg PO DAILY 10/08/20 02/01/22 multivitamin 1 tablet PO DAILY 10/08/20 02/01/22 linagliptin 5 mg tablet (Tradjenta) 5 mg PO QAM 12/21/21 02/01/22 Allergies Allergy/AdvReac Type Severity Reaction Status Date / Time vancomycin Allergy Rash Verified 12/24/21 10:58 Review of Systems Review of Systems: CONSTITUTIONAL: Denies fever, chills, or sweats. EYES: Denies visual changes, redness, or discharge. ENT: Denies rhinorrhea, congestion, sore throat, or otalgia. CARDIOVASCULAR: Denies chest pain, palpitations, or edema. RESPIRATORY: Denies cough or dyspnea. GASTROINTESTINAL: Denies abdominal pain, nausea, vomiting, or diarrhea. GENITOURINARY: Denies dysuria or hematuria. SKIN: See HPI MUSCULOSKELETAL: Denies back pain, joint pain, or myalgia. NEUROLOGIC: Denies headache, numbness, or weakness. PSYCHIATRIC: Denies anxiety or depression. [facility] Past Medical History Medical History Adenocarcinoma of sigmoid colon (~07/28/18) Status post low anterior resection and chemotherapy. Atrial fibrillation Chronic anemia Congestive heart failure Echocardiogram in January 2020 showed mildly enlarged left ventricle with mild reduction left ventricular function with an EF of 45 to 50% as well as significant biatrial dilatation and small amounts of atrial, mitral, and tricuspid regurgitation. 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 Metabolic syndrome X Mixed hyperlipidemia Osteomyelitis Status post amputation of left 2nd toe. Peripheral vascular disease Type 2 diabetes mellitus Surgical History Surgical History History of amputation of lesser toe of left foot Treatment of osteomyelitis in 10/2013 & 01/2015. History of partial colectomy (~07/2017) Hand assisted laparoscopic low anterior resection with colorectal anastomosis for treatment of colon cancer. History of skin graft To poorly healing wound of the lower extremity. Port-A-Cath in place Family History Family History Mother Diabetes mellitus Father Cerebrovascular accident Other Family history of arthritis Family history of cardiovascular disease Family history of heart disease in male family member before age 55 Family history of thyroid disease Social History Social History Social History: The patient lives alone in his own apartment in [place]. He is single and never had chi
--- NOTE | 2022-02-01 13:20 | PC.NURSE ---
Patient off unit to Radiology.
[2022-02-01 15:09] LABS: Troponin I < 0.012 ng/mL (0.000-0.034)
[2022-02-01 18:49] LABS: Troponin I < 0.012 ng/mL (0.000-0.034)
[2022-02-01 19:01] LABS: Glucose Point of Care 121 mg/dl (65-105)
--- NOTE | 2022-02-01 22:43 | PM.IMHP ---
H&P: HPI History of Present Illness Date/Time: 02/01/22 22:43 Chief Complaint: Left leg discoloration. Narrative: This is a 71-year-old male patient who lives in apartment alone. He does have a history of congestive heart failure AFib and venous insufficiency. The patient has a red and leg to the right lower extremity and he has is scabbed area to the left lower extremity. The patient presented to the emergency room with evaluation of worsening lower extremity swelling and erythema. The patient does not have any wound care at home but he does have home health which comes a couple times a week. Patient was sent to the emergency room via home health care for further evaluation. His white count is normal. His H&H is 10.0 and 33.0. Creatinine is 1.5 with a normal baseline. His blood sugars 155 and then 121. Troponins are negative x3. The patient was given aspirin, Zosyn and Ativan in the emergency room. The patient is being admitted to observation status on the date of service of 02/01/2022. Review of Systems Review of Systems: See HPI All systems reviewed & are unremarkable except as noted in HPI and below Constitutional: Constitutional: Reports as per HPI and Reports no additional constitutional complaints Eyes: Eyes: Reports as per HPI and Reports no additional eye complaints ENT: Reports system reviewed and no additional complaints, except as documented and Reports Normal hearing present Cardiovascular: Cardiovascular: Reports no additional cardiovascular complaints Respiratory: Respiratory: Reports no additional respiratory complaints and Reports no additional respiratory complaints Gastrointestinal: Gastrointestinal: Reports as per HPI and Reports no additional gastrointestinal complaints Musculoskeletal: Musculoskeletal: Reports no additional musculoskeletal complaints Integumentary/Breasts: Skin/Breast: Reports system reviewed and no additional complaints, except as docu and Reports as per HPI Neurologic: Reports system reviewed and no additional complaints, except as documented, Reports as per HPI and Reports Normal hearing present Psychiatric: Psychiatric: Reports no additional psychiatric complaints and Reports as per HPI Endocrine: Endocrine: Reports no additional endocrine complaints Hematologic/Lymphatic: Hematologic/Lymphatic: Reports no additional hematologic/lymphatic complaints Allergic/Immunologic: Allergic/Immunologic: Reports no additional allergic/immunologic complaints [facility] Past Medical History Medical History (Updated 02/01/22 @ 23:04 by Nataly Villafuerte NP) Adenocarcinoma of sigmoid colon (~07/28/18) Status post low anterior resection and chemotherapy. Atrial fibrillation Chronic anemia Congestive heart failure Echocardiogram in January 2020 showed mildly enlarged left ventricle with mild reduction left ventricular function with an EF of 45 to 50% as well as significant biatrial dilatation and small amounts of atrial, mitral, and tricuspid regurgitation. 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 Malignant neoplasm of overlapping sites of colon Metabolic syndrome X Mixed hyperlipidemia Mixed hyperlipidemia Osteomyelitis Status post amputation of left 2nd toe. Peripheral vascular disease Type 2 diabetes mellitus Surgical History Surgical History (Updated 02/01/22 @ 23:01 by Nataly Villafuerte NP) History of amputation of lesser toe of left foot Treatment of osteomyelitis in 10/2013 & 01/2015. History of partial colectomy (~07/2017) Hand assisted laparoscopic low anterior resection with colorectal anastomosis for treatment of colon cancer. History of removal of pigmented skin lesion History of skin graft To poorly healing wound of the lower extremity. Port-A-Cath in place Family History Family History (Reviewed 02/01/22 @ 22:53 by
[2022-02-01] MEDS: METOPROLOL TARTRATE 50 MG TAB PO (23:39)
[2022-02-01] MEDS: FAMOTIDINE 20 MG TABLET PO (23:39)
[2022-02-01] MEDS: SIMVASTATIN 10 MG TABLET BY MOUTH (23:39)
--- NOTE | 2022-02-02 | ECHO_ITS ---
Patient Info Name: Donaldo Booker Age: 71 years : 1950 Gender: Male Ht: 71 in Wt: 240 lbs BSA: 2.37 m2 HR: 85 bpm BP: 104 / 52 mmHg Heart Rhythm: Atrial Fibrillation Exam Date: 02/02/2022 11:34 AM Exam Location: [facility] Patient Status: Outpatient Admit Date: 02/01/2022 Staff Ordering Physician: Nataly Villafuerte NP Pharmacist Helper: Mindi Dove RDCS Attending Provider: Juvenal Alicea MD Referring Physician: Christo BUENO; Exam Type: CA echo doppler color flow Study Info Indications - congestive heart failure Complete two-dimensional, color flow and Doppler transthoracic echocardiogram is performed. Summary 1. Complete two-dimensional, color flow and Doppler transthoracic echocardiogram is performed. 2. Normal left ventricular size with borderline left ventricular hypertrophy. Mild global hypokinesis present. Visual ejection fraction is 45-50%; measured ejection fraction 42%. Elevated filling pressures noted. No segmental wall motion abnormalities. Diastolic function indeterminate. 3. Left atrial chamber dimension is moderately enlarged. 4. Right atrial chamber dimension is mildly enlarged. 5. There is mild to moderate tricuspid valve regurgitation. 6. Mild pulmonary hypertension, estimated pulmonary arterial systolic pressure is 42 mmHg. 7. Dilated inferior vena cava with >50% collapse upon inspiration consistent with elevated right atrial pressure, 15 mmHg. 8. Atrial fibrillation. Left Ventricle Left ventricular chamber dimension is mildly enlarged. Left ventricular systolic function is mildly reduced, estimated at 45-50%. There is no increased left ventricular wall thickness. Left ventricular septal wall motion is normal. The left ventricular diastolic function is indeterminate. Right Ventricle Right ventricular chamber dimension is normal. Right ventricular systolic function is normal. Left Atria Left atrial chamber dimension is moderately enlarged. Right Atria Right atrial chamber dimension is mildly enlarged. Aortic Valve The aortic valve is trileaflet. There is mild aortic valve sclerosis. There is no aortic valve stenosis. There is trace aortic valve regurgitation. Pulmonic Valve The pulmonic valve is normal. There is no pulmonic valve stenosis. There is no pulmonic regurgitation. Mitral Valve The mitral valve has normal leaflets. There is no mitral valve stenosis. There is trace mitral valve regurgitation. The mitral valve annulus is mildly calcified. Tricuspid Valve The tricuspid valve leaflets are normal. There is no significant tricuspid valve stenosis. There is mild to moderate tricuspid valve regurgitation. Mild pulmonary hypertension, estimated pulmonary arterial systolic pressure is 42 mmHg. Pericardium/Pleural The pericardium appears normal. There is no pericardial effusion. Inferior Vena Cava Dilated inferior vena cava with >50% collapse upon inspiration consistent with elevated right atrial pressure, 15 mmHg. Aorta The aortic root size at the sinus of Valsalva is normal. The prox ascending aorta size is normal. Left Ventricular Outflow Tract Name Value Normal LVOT 2D LVOT Diameter 2.0 cm
[2022-02-02 05:35] VITALS: PULSE 61
[2022-02-02] MEDS: METOPROLOL TARTRATE 50 MG TAB PO ×3 (05:35→20:21)
[2022-02-02 05:40] VITALS: BP 104/52; PULSE 61; RESP 18; TEMP 36.3; O2SAT 100
[2022-02-02 05:40] LABS: Alanine Aminotransferase 27 U/L (6-50); Albumin Level 3.8 g/dL (3.5-5.1); Alkaline Phosphatase 341 U/L (38-126); Anion Gap 9 mmol/L (8-16); Aspartate Amino Transferase 44 U/L (17-59); Bilirubin,Total 0.5 mg/dL (0.2-1.3); Blood Urea Nitrogen 48 mg/dL (9-20); Calcium 9.4 mg/dL (8.4-10.2); Carbon Dioxide 27 mmol/L (22-30); Chloride 104 mmol/L (98-107); Estimated CRCL calculation 43 ml/min; Estimated Glomerular Filt Rate 37; Glucose 122 mg/dL (65-110); Lactic Acid Reflex 1.2 mmol/L (0.7-2.0); Magnesium 2.2 mg/dL (1.6-2.3); Potassium 4.3 mmol/L (3.4-5.0); Sodium 140 mmol/L (137-145)
[2022-02-02 06:05] LABS: Basophils Absolute Auto 0.1 K/mm3 (0.0-0.1); Eosinophils Absolute Auto 0.5 K/mm3 (0-0.3); Hematocrit 33.9 % (42.0-52.0); Hemoglobin 10.7 g/dL (14.0-18.0); Immature Granulocyte Absolute 0.03 K/mm3 (0.00-0.031); Immature Granulocyte Percent A 0.4 % (0-0.5); Lymphocytes Absolute Auto 1.71 K/mm3 (0.9-3.2); Lymphocytes Percent Auto 24.3 % (18.3-44.2); Mean Corpuscular HGB Conc 31.6 g/dl (32-36); Mean Corpuscular Hemoglobin 29.6 pg (26-34); Mean Corpuscular Volume 93.9 fl (80-100); Mean Platelet Volume 9.9 fl (7.4-10.4); Monocytes Absolute Auto 0.7 K/mm3 (0.1-0.6); Monocytes Percent Auto 9.2 % (2.6-8.5); Neutrophils Absolute Auto 4.1 K/mm3 (1.3-6.7); Neutrophils Percent Auto 58.1 % (45.5-73.1); Platelet Count Result 199 k/mm3 (150-375); Red Blood Count 3.61 M/mm3 (4.6-6.20); Red Cell Distribution Width 16.6 % (11.5-14.5)
[2022-02-02 08:02] LABS: NT Pro B Type Natriuretic Pept 3030 pg/mL (5-100); Transferrin 119 mg/dL (206-381)
[2022-02-02 08:23] LABS: Iron 36 ug/dL (49-181)
[2022-02-02 08:35] LABS: Percent Iron Saturation 20 % (20-50)
[2022-02-02 08:45] LABS: Glucose Point of Care 128 mg/dl (65-105)
[2022-02-02 09:01] LABS: Folic Acid 14.1 ng/mL (2.76->20)
--- NOTE | 2022-02-02 09:15 | P.PNIM_ITS ---
Progress Note: A&P Assessment and Plan (1) Cellulitis, leg: Qualifiers: Laterality: unspecified laterality Qualified Code(s): L03.119 - Cellulitis of unspecified part of limb Code(s): L03.119 - Cellulitis of unspecified part of limb Status: Acute Assessment and Plan: * ulcerated area to the left lower extremity which appears to be healing however the right lower extremity is red from just below the right knee all the way to the ankle. * Per stewardship zosyn started * Blood cultures pending * Silvadene continued * Wound consult * WBC normal at 7.0 (2) Acute kidney injury: Code(s): N17.9 - Acute kidney failure, unspecified Status: Acute Assessment and Plan: * BUN/Cr 52/1.50 on admission, currently 48/180 * GFR 37 currently * Baseline appears to be 0.90-1.00 * UA does not indicate infection * Start fluids at 100ml/hr * Continue to trend labs * Urine studies ordered * BNP 3030 * Hold home lasix (3) Atrial fibrillation: Qualifiers: Atrial fibrillation type: unspecified chronic Qualified Code(s): I48.20 - Chronic atrial fibrillation, unspecified Code(s): I48.91 - Unspecified atrial fibrillation Status: Chronic Assessment and Plan: * EKG shows afib, rate 108, RBBB * Continue home metoprolol, aspirin and diltiazem * Not anticoagulated, was on warfarin * trend heart rate * adjust therapy as indicated (4) Congestive heart failure: Qualifiers: Heart failure chronicity: chronic Heart failure type: diastolic Qualified Code(s): I50.32 - Chronic diastolic (congestive) heart failure Code(s): I50.9 - Heart failure, unspecified Status: Chronic Assessment and Plan: * BNP 3030 * Lasix on hold with AGUILAR * daily weights * Echo ordered * Known from ECHO 01/2020, chronic combined systolic and diastolic heart failure * trend urine output * consider diuresis if indicated (5) Essential hypertension: Code(s): I10 - Essential (primary) hypertension Status: Acute Assessment and Plan: * BP is 104/52 * Hold lisinopril on hold with AGUILAR * Continue metoprolol * trend BP * Adjust therapy as indicated (6) Gout: Code(s): M10.9 - Gout, unspecified Status: Chronic Assessment and Plan: -continue with allopurinol (7) Hyperlipidemia LDL goal <100: Code(s): E78.5 - Hyperlipidemia, unspecified Status: Acute Assessment and Plan: -continue with simvastatin (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: Code(s): E11.59 - Type 2 diabetes mellitus with other circulatory complications Status: Chronic Assessment and Plan: * Current glucose is 122 * A1c is 7.0 * Continue home Januvia and * Hold Tradjenta not on formulary * Accu cheks ACHS * Diabetic diet * ISS * Hypoglycemia protocol -Accu-Cheks AC and HS with sliding scale insulin and hypoglycemic protocol. -check A1c if not performed in the last 3 months. (9) Venous insufficiency (chronic) (peripheral): Code(s): I87.2 - Venous insufficiency (chronic) (peripheral) Status: Acute Assessment and Plan:
--- NOTE | 2022-02-02 09:15 | PM.IMPN ---
Progress Note: A&P Assessment and Plan (1) Cellulitis, leg: Qualifiers: Laterality: unspecified laterality Qualified Code(s): L03.119 - Cellulitis of unspecified part of limb Code(s): L03.119 - Cellulitis of unspecified part of limb Status: Acute Assessment and Plan: ulcerated area to the left lower extremity which appears to be healing however the right lower extremity is red from just below the right knee all the way to the ankle. Per stewardship zosyn started Blood cultures pending Silvadene continued Wound consult WBC normal at 7.0 (2) Acute kidney injury: Code(s): N17.9 - Acute kidney failure, unspecified Status: Acute Assessment and Plan: BUN/Cr 52/1.50 on admission, currently 48/180 GFR 37 currently Baseline appears to be 0.90-1.00 UA does not indicate infection Start fluids at 100ml/hr Continue to trend labs Urine studies ordered BNP 3030 Hold home lasix (3) Atrial fibrillation: Qualifiers: Atrial fibrillation type: unspecified chronic Qualified Code(s): I48.20 - Chronic atrial fibrillation, unspecified Code(s): I48.91 - Unspecified atrial fibrillation Status: Chronic Assessment and Plan: EKG shows afib, rate 108, RBBB Continue home metoprolol, aspirin and diltiazem Not anticoagulated, was on warfarin trend heart rate adjust therapy as indicated (4) Congestive heart failure: Qualifiers: Heart failure chronicity: chronic Heart failure type: diastolic Qualified Code(s): I50.32 - Chronic diastolic (congestive) heart failure Code(s): I50.9 - Heart failure, unspecified Status: Chronic Assessment and Plan: BNP 3030 Lasix on hold with AGUILAR daily weights Echo ordered Known from ECHO 01/2020, chronic combined systolic and diastolic heart failure trend urine output consider diuresis if indicated (5) Essential hypertension: Code(s): I10 - Essential (primary) hypertension Status: Acute Assessment and Plan: BP is 104/52 Hold lisinopril on hold with AGUILAR Continue metoprolol trend BP Adjust therapy as indicated (6) Gout: Code(s): M10.9 - Gout, unspecified Status: Chronic Assessment and Plan: -continue with allopurinol (7) Hyperlipidemia LDL goal <100: Code(s): E78.5 - Hyperlipidemia, unspecified Status: Acute Assessment and Plan: -continue with simvastatin (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: Code(s): E11.59 - Type 2 diabetes mellitus with other circulatory complications Status: Chronic Assessment and Plan: Current glucose is 122 A1c is 7.0 Continue home Januvia and Hold Tradjenta not on formulary Accu cheks ACHS Diabetic diet ISS Hypoglycemia protocol -Accu-Cheks AC and HS with sliding scale insulin and hypoglycemic protocol. -check A1c if not performed in the last 3 months. (9) Venous insufficiency (chronic) (peripheral): Code(s): I87.2 - Venous insufficiency (chronic) (peripheral) Status: Acute Assessment and Plan: Venous doppler negative for DVT Continue aspirin Trend edema Tima hose Time Spent With Patient Time with patient: Greater than 35 minutes Subjective Date/time seen: 02/02/22914 Interval history: 02/02/22914 Patient seems to be doing okay today. He denies any pain. He also denies any chest pain, shortness a breath, nausea, vomiting, diarrhea, constipation, weakness or fatigue. He does have a half-dollar size red area with clean edges most likely PAD. Wound is leaking. He also has redness to both legs that are both warm. 02/01/22? 22:43 This is a 71-year-old male patient who lives in apartment alone.? He does have a history of congestive heart
[2022-02-02] MEDS: SODIUM CHLORIDE 0.9% IV 1,000 ML 100 ML IV CONT ×2 (09:40→23:56)
[2022-02-02] MEDS: POTASSIUM CHLORIDE 20 MEQ TABLET.ER PO (09:41)
[2022-02-02] MEDS: allopurinoL 300 MG TABLET BY MOUTH (09:41)
[2022-02-02] MEDS: FERROUS SULFATE 324 MG TABLET PO ×2 (09:41→20:21)
[2022-02-02] MEDS: ASPIRIN 325 MG ENTERIC TABLET PO (09:41)
[2022-02-02] MEDS: FAMOTIDINE 20 MG TABLET PO ×2 (09:41→20:21)
[2022-02-02] MEDS: LORATADINE 10 MG TABLET PO (09:42)
[2022-02-02] MEDS: FLUTICASONE PROPIONATE 0.05% NA SPR 16 GM BTL (*BKC) 2 SPRAY NASAL (09:42)
[2022-02-02] MEDS: CYANOCOBALAMIN 500 MCG TABLET PO (09:42)
[2022-02-02] MEDS: MULTIVITAMINS THERAPEUTIC TAB (*BKC) 1 TABLET PO (09:42)
[2022-02-02] MEDS: SILVERGEL (ELTA) 45 ML 1 APPLIC TOPICAL (09:43)
[2022-02-02] MEDS: ENOXAPARIN 40 MG/0.4 ML SYRINGE SUB-Q (09:43)
[2022-02-02] MEDS: TRIAMCINOLONE ACET 0.1% CREAM 15 GM TUBE 1 APPLIC TOPICAL ×3 (09:44→16:27)
[2022-02-02 12:15] LABS: Glucose Point of Care 220 mg/dl (65-105)
[2022-02-02] MEDS: INSULIN ASPART (*BKC) 100 UNITS/ML SUB-Q (13:00)
[2022-02-02 13:17] LABS: Creatinine Urine 72.4 mg/dL; Urea Random Urine 806 MG/DL
[2022-02-02 13:32] LABS: Sodium Urine Random 95 meq/L
[2022-02-02 14:28] VITALS: BP 109/51; PULSE 80; RESP 16; TEMP 36.6; O2SAT 98
[2022-02-02 17:11] LABS: Glucose Point of Care 131 mg/dl (65-105)
[2022-02-02 20:16] VITALS: BP 106/64; PULSE 60; RESP 20; TEMP 36.1; O2SAT 100
[2022-02-02 20:21] VITALS: PULSE 60
[2022-02-02] MEDS: SIMVASTATIN 10 MG TABLET BY MOUTH (20:21)
[2022-02-03 00:03] LABS: Glucose Point of Care 188 mg/dl (65-105)
[2022-02-03 04:35] VITALS: BP 105/59; PULSE 82; RESP 18; TEMP 35.9; O2SAT 96
[2022-02-03 05:50] LABS: Basophils Absolute Auto 0.1 K/mm3 (0.0-0.1); Basophils Percent Auto 0.6 % (0.2-1.2); Eosinophils Absolute Auto 0.7 K/mm3 (0-0.3); Hematocrit 31.5 % (42.0-52.0); Hemoglobin 10.1 g/dL (14.0-18.0); Immature Granulocyte Absolute 0.02 K/mm3 (0.00-0.031); Immature Granulocyte Percent A 0.3 % (0-0.5); Lymphocytes Absolute Auto 2.09 K/mm3 (0.9-3.2); Lymphocytes Percent Auto 26.4 % (18.3-44.2); Mean Corpuscular HGB Conc 32.1 g/dl (32-36); Mean Corpuscular Hemoglobin 29.1 pg (26-34); Mean Corpuscular Volume 90.8 fl (80-100); Monocytes Absolute Auto 0.9 K/mm3 (0.1-0.6); Monocytes Percent Auto 10.9 % (2.6-8.5); Neutrophils Absolute Auto 4.2 K/mm3 (1.3-6.7); Neutrophils Percent Auto 52.8 % (45.5-73.1); Platelet Count Result 174 k/mm3 (150-375); Red Blood Count 3.47 M/mm3 (4.6-6.20); Red Cell Distribution Width 16.6 % (11.5-14.5); White Blood Count 7.9 K/mm3 (4.5-10.0)
[2022-02-03 05:56] VITALS: PULSE 80
[2022-02-03] MEDS: METOPROLOL TARTRATE 50 MG TAB PO ×2 (05:56→15:36)
[2022-02-03 06:06] LABS: Alanine Aminotransferase 23 U/L (6-50); Albumin Level 3.5 g/dL (3.5-5.1); Alkaline Phosphatase 292 U/L (38-126); Anion Gap 5 mmol/L (8-16); Aspartate Amino Transferase 35 U/L (17-59); Bilirubin,Total 0.6 mg/dL (0.2-1.3); Blood Urea Nitrogen 40 mg/dL (9-20); Calcium 9.3 mg/dL (8.4-10.2); Carbon Dioxide 24 mmol/L (22-30); Chloride 104 mmol/L (98-107); Estimated CRCL calculation 59 ml/min; Estimated Glomerular Filt Rate 54; Glucose 111 mg/dL (65-110); Potassium 4.3 mmol/L (3.4-5.0); Sodium 133 mmol/L (137-145)
--- NOTE | 2022-02-03 06:35 | P.PNIM_ITS ---
Progress Note: A&P Assessment and Plan (1) Cellulitis, leg: Qualifiers: Laterality: unspecified laterality Qualified Code(s): L03.119 - Cellulitis of unspecified part of limb Code(s): L03.119 - Cellulitis of unspecified part of limb Status: Acute Assessment and Plan: * ulcerated area to the left lower extremity which appears to be healing however the right lower extremity is red from just below the right knee all the way to the ankle. * Change zosyn to augmentin * Blood cultures NGTD * Silvadene continued * Wound consult, bedside debridement with care instructions given * WBC normal at 7.9 (2) Acute kidney injury: Code(s): N17.9 - Acute kidney failure, unspecified Status: Acute Assessment and Plan: * BUN/Cr 52/1.50 on admission, currently 40/1.30 * GFR 54 currently * Baseline appears to be 0.90-1.00 * UA does not indicate infection * Stop fluids at this point * Continue to trend labs * Urine studies Na 95, Urea 806, Cr 72.4 * FENa and FEUrea indicate intrinsic disease * BNP 3030 * Resume home lasix (3) Atrial fibrillation: Qualifiers: Atrial fibrillation type: unspecified chronic Qualified Code(s): I48.20 - Chronic atrial fibrillation, unspecified Code(s): I48.91 - Unspecified atrial fibrillation Status: Chronic Assessment and Plan: * EKG shows afib, rate 108, RBBB * Continue home metoprolol, aspirin and diltiazem * Not anticoagulated, was on warfarin * trend heart rate * adjust therapy as indicated (4) Congestive heart failure: Qualifiers: Heart failure type: diastolic Heart failure chronicity: chronic Quali fied Code(s): I50.32 - Chronic diastolic (congestive) heart failure Code(s): I50.9 - Heart failure, unspecified Status: Chronic Assessment and Plan: * BNP 3030 * home Lasix resumed, AGUILAR better * daily weights * Echo EF of 42% with indeterminate diastolic dysfunction * chronic combined systolic and diastolic heart failure * Continue Lisinopril * Start Jardiance * trend urine output * Continue home metoprolol and aspirin * Consider adding Xarelto for anticoagulation since H/H and plt stable (5) Essential hypertension: Code(s): I10 - Essential (primary) hypertension Status: Acute Assessment and Plan: * BP is 105/59 * Hold lisinopril on hold with AGUILAR * Continue metoprolol * trend BP * Adjust therapy as indicated (6) Gout: Code(s): M10.9 - Gout, unspecified Status: Chronic Assessment and Plan: -continue with allopurinol (7) Hyperlipidemia LDL goal <100: Code(s): E78.5 - Hyperlipidemia, unspecified Status: Acute Assessment and Plan: -continue with simvastatin (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: Code(s): E11.59 - Type 2 diabetes mellitus with other circulatory complications Status: Chronic Assessment and Plan: * Current glucose is 111 * A1c is 7.0 * Continue home Januvia and * Hold Tradjenta not on formulary, consider switching to Farxiga * Accu Cheks AC/HS * Diabetic diet * ISS * Hypoglycemia protocol (9) Venous i
--- NOTE | 2022-02-03 06:35 | PM.IMPN ---
Progress Note: A&P Assessment and Plan (1) Cellulitis, leg: Qualifiers: Laterality: unspecified laterality Qualified Code(s): L03.119 - Cellulitis of unspecified part of limb Code(s): L03.119 - Cellulitis of unspecified part of limb Status: Acute Assessment and Plan: ulcerated area to the left lower extremity which appears to be healing however the right lower extremity is red from just below the right knee all the way to the ankle. Change zosyn to augmentin Blood cultures NGTD Silvadene continued Wound consult, bedside debridement with care instructions given WBC normal at 7.9 (2) Acute kidney injury: Code(s): N17.9 - Acute kidney failure, unspecified Status: Acute Assessment and Plan: BUN/Cr 52/1.50 on admission, currently 40/1.30 GFR 54 currently Baseline appears to be 0.90-1.00 UA does not indicate infection Stop fluids at this point Continue to trend labs Urine studies Na 95, Urea 806, Cr 72.4 FENa and FEUrea indicate intrinsic disease BNP 3030 Resume home lasix (3) Atrial fibrillation: Qualifiers: Atrial fibrillation type: unspecified chronic Qualified Code(s): I48.20 - Chronic atrial fibrillation, unspecified Code(s): I48.91 - Unspecified atrial fibrillation Status: Chronic Assessment and Plan: EKG shows afib, rate 108, RBBB Continue home metoprolol, aspirin and diltiazem Not anticoagulated, was on warfarin trend heart rate adjust therapy as indicated (4) Congestive heart failure: Qualifiers: Heart failure type: diastolic Heart failure chronicity: chronic Qualified Code(s): I50.32 - Chronic diastolic (congestive) heart failure Code(s): I50.9 - Heart failure, unspecified Status: Chronic Assessment and Plan: BNP 3030 home Lasix resumed, AGUILAR better daily weights Echo EF of 42% with indeterminate diastolic dysfunction chronic combined systolic and diastolic heart failure Continue Lisinopril Start Jardiance trend urine output Continue home metoprolol and aspirin Consider adding Xarelto for anticoagulation since H/H and plt stable (5) Essential hypertension: Code(s): I10 - Essential (primary) hypertension Status: Acute Assessment and Plan: BP is 105/59 Hold lisinopril on hold with AGUILAR Continue metoprolol trend BP Adjust therapy as indicated (6) Gout: Code(s): M10.9 - Gout, unspecified Status: Chronic Assessment and Plan: -continue with allopurinol (7) Hyperlipidemia LDL goal <100: Code(s): E78.5 - Hyperlipidemia, unspecified Status: Acute Assessment and Plan: -continue with simvastatin (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: Code(s): E11.59 - Type 2 diabetes mellitus with other circulatory complications Status: Chronic Assessment and Plan: Current glucose is 111 A1c is 7.0 Continue home Januvia and Hold Tradjenta not on formulary, consider switching to [employer] Accu Cheks AC/HS Diabetic diet ISS Hypoglycemia protocol (9) Venous insufficiency (chronic) (peripheral): Code(s): I87.2 - Venous insufficiency (chronic) (peripheral) Status: Acute Assessment and Plan: Venous doppler negative for DVT Continue aspirin Trend edema Tima hose (10) Chronic anemia: Code(s): D64.9 - Anemia, unspecified Status: Acute Assessment and Plan: H/H 10.1/31.5 Continue home ferrous sulfate BID Give one dose of IV iron Stable at this point Iron 36, TIBC 179, % Sat 20, Transferrin 119, Ferritin 392, Folate 14.1, B12 954 Trend H/H Transfuse if Hgb <7.0 Time Spent With Patient Time with patient: Greater than 35 minutes Subjective Date/time seen
[2022-02-03 08:40] LABS: Glucose Point of Care 115 mg/dl (65-105)
[2022-02-03] MEDS: IRON SUCROSE COMPLEX 200 MG in SODIUM CHLORIDE 0.9% IV 50 ML 120 MG IVPB (09:23)
[2022-02-03] MEDS: POTASSIUM CHLORIDE 20 MEQ TABLET.ER PO (09:23)
[2022-02-03] MEDS: MULTIVITAMINS THERAPEUTIC TAB (*BKC) 1 TABLET PO (09:24)
[2022-02-03] MEDS: CYANOCOBALAMIN 500 MCG TABLET PO (09:24)
[2022-02-03] MEDS: EMPAGLIFLOZIN 10 MG TABLET PO (09:24)
[2022-02-03] MEDS: allopurinoL 300 MG TABLET BY MOUTH (09:24)
[2022-02-03] MEDS: FERROUS SULFATE 324 MG TABLET PO (09:24)
[2022-02-03] MEDS: LORATADINE 10 MG TABLET PO (09:24)
[2022-02-03] MEDS: ASPIRIN 325 MG ENTERIC TABLET PO (09:24)
[2022-02-03] MEDS: FLUTICASONE PROPIONATE 0.05% NA SPR 16 GM BTL (*BKC) 2 SPRAY NASAL (09:25)
[2022-02-03] MEDS: FAMOTIDINE 20 MG TABLET PO (09:25)
[2022-02-03] MEDS: ENOXAPARIN 40 MG/0.4 ML SYRINGE SUB-Q (09:25)
[2022-02-03] MEDS: AMOXICILLIN/CLAVULANATE K 875-125 MG TAB 1 TABLET PO (09:26)
[2022-02-03] MEDS: SILVERGEL (ELTA) 45 ML 1 APPLIC TOPICAL (09:27)
[2022-02-03] MEDS: TRIAMCINOLONE ACET 0.1% CREAM 15 GM TUBE 1 APPLIC TOPICAL ×3 (09:27→16:55)
[2022-02-03] MEDS: FUROSEMIDE 40 MG TABLET PO ×2 (11:41→16:55)
[2022-02-03 12:17] LABS: Glucose Point of Care 156 mg/dl (65-105)
--- NOTE | 2022-02-03 12:45 | P.DS_ITS ---
DS: Admitting Diagnosis Discharge Date 02/03/22 1245 Admitting Diagnosis cellulitis of lower extremity, AGUILAR DS: Discharge Diagnosis Discharge Diagnosis (1) Cellulitis, leg: Qualifiers: Laterality: unspecified laterality Qualified Code(s): L03.119 - Cellulitis of unspecified part of limb Code(s): L03.119 - Cellulitis of unspecified part of limb Status: Acute Assessment and Plan: * ulcerated area to the left lower extremity which appears to be healing however the right lower extremity is red from just below the right knee all the way to the ankle. * Change zosyn to augmentin * Blood cultures NGTD * Silvadene continued * Wound consult, bedside debridement with care instructions given * WBC normal at 7.9 (2) Acute kidney injury: Code(s): N17.9 - Acute kidney failure, unspecified Status: Acute Assessment and Plan: * BUN/Cr 52/1.50 on admission, currently 40/1.30 * GFR 54 currently * Baseline appears to be 0.90-1.00 * UA does not indicate infection * Stop fluids at this point * Continue to trend labs * Urine studies Na 95, Urea 806, Cr 72.4 * FENa and FEUrea indicate intrinsic disease * BNP 3030 * Resume home lasix (3) Atrial fibrillation: Qualifiers: Atrial fibrillation type: unspecified chronic Qualified Code(s): I48.20 - Chronic atrial fibrillation, unspecified Code(s): I48.91 - Unspecified atrial fibrillation Status: Chronic Assessment and Plan: * EKG shows afib, rate 108, RBBB * Continue home metoprolol, aspirin and diltiazem * Not anticoagulated, was on warfarin * trend heart rate * adjust therapy as indicated (4) Congestive heart failure: Qualifiers: Heart failure chronicity: chronic Heart failure type: diastolic Qualified Code(s): I50.32 - Chronic diastolic (congestive) heart failure Code(s): I50.9 - Heart failure, unspecified Status: Chronic Assessment and Plan: * BNP 3030 * home Lasix resumed, AGUILAR better * daily weights * Echo EF of 42% with indeterminate diastolic dysfunction * chronic combined systolic and diastolic heart failure * Continue Lisinopril * Start Jardiance * trend urine output * Continue home metoprolol and aspirin * Consider adding Xarelto for anticoagulation since H/H and plt stable (5) Essential hypertension: Code(s): I10 - Essential (primary) hypertension Status: Acute Assessment and Plan: * BP is 105/59 * Hold lisinopril on hold with AGUILAR * Continue metoprolol * trend BP * Adjust therapy as indicated (6) Gout: Code(s): M10.9 - Gout, unspecified Status: Chronic Assessment and Plan: -continue with allopurinol (7) Hyperlipidemia LDL goal <100: Code(s): E78.5 - Hyperlipidemia, unspecified Status: Acute Assessment and Plan: -continue with simvastatin (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: Code(s): E11.59 - Type 2 diabetes mellitus with other circulatory complications Status: Chronic Assessment and Plan: * Current glucose is 111 * A1c is 7.0 * Continue home Januvia and * Hold Tradjenta not on formulary, consider switching to Farxiga * Accu Cheks A
--- NOTE | 2022-02-03 12:45 | PM.DS ---
DS: Admitting Diagnosis Discharge Date 02/03/22 1245 Admitting Diagnosis cellulitis of lower extremity, AGUILAR DS: Discharge Diagnosis Discharge Diagnosis (1) Cellulitis, leg: Qualifiers: Laterality: unspecified laterality Qualified Code(s): L03.119 - Cellulitis of unspecified part of limb Code(s): L03.119 - Cellulitis of unspecified part of limb Status: Acute Assessment and Plan: ulcerated area to the left lower extremity which appears to be healing however the right lower extremity is red from just below the right knee all the way to the ankle. Change zosyn to augmentin Blood cultures NGTD Silvadene continued Wound consult, bedside debridement with care instructions given WBC normal at 7.9 (2) Acute kidney injury: Code(s): N17.9 - Acute kidney failure, unspecified Status: Acute Assessment and Plan: BUN/Cr 52/1.50 on admission, currently 40/1.30 GFR 54 currently Baseline appears to be 0.90-1.00 UA does not indicate infection Stop fluids at this point Continue to trend labs Urine studies Na 95, Urea 806, Cr 72.4 FENa and FEUrea indicate intrinsic disease BNP 3030 Resume home lasix (3) Atrial fibrillation: Qualifiers: Atrial fibrillation type: unspecified chronic Qualified Code(s): I48.20 - Chronic atrial fibrillation, unspecified Code(s): I48.91 - Unspecified atrial fibrillation Status: Chronic Assessment and Plan: EKG shows afib, rate 108, RBBB Continue home metoprolol, aspirin and diltiazem Not anticoagulated, was on warfarin trend heart rate adjust therapy as indicated (4) Congestive heart failure: Qualifiers: Heart failure chronicity: chronic Heart failure type: diastolic Qualified Code(s): I50.32 - Chronic diastolic (congestive) heart failure Code(s): I50.9 - Heart failure, unspecified Status: Chronic Assessment and Plan: BNP 3030 home Lasix resumed, AGUILAR better daily weights Echo EF of 42% with indeterminate diastolic dysfunction chronic combined systolic and diastolic heart failure Continue Lisinopril Start Jardiance trend urine output Continue home metoprolol and aspirin Consider adding Xarelto for anticoagulation since H/H and plt stable (5) Essential hypertension: Code(s): I10 - Essential (primary) hypertension Status: Acute Assessment and Plan: BP is 105/59 Hold lisinopril on hold with AGUILAR Continue metoprolol trend BP Adjust therapy as indicated (6) Gout: Code(s): M10.9 - Gout, unspecified Status: Chronic Assessment and Plan: -continue with allopurinol (7) Hyperlipidemia LDL goal <100: Code(s): E78.5 - Hyperlipidemia, unspecified Status: Acute Assessment and Plan: -continue with simvastatin (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: Code(s): E11.59 - Type 2 diabetes mellitus with other circulatory complications Status: Chronic Assessment and Plan: Current glucose is 111 A1c is 7.0 Continue home Januvia and Hold Tradjenta not on formulary, consider switching to [email or web address] pSivida AC/HS Diabetic diet ISS Hypoglycemia protocol (9) Venous insufficiency (chronic) (peripheral): Code(s): I87.2 - Venous insufficiency (chronic) (peripheral) Status: Acute Assessment and Plan: Venous doppler negative for DVT Continue aspirin Trend edema Tima hose (10) Chronic anemia: Code(s): D64.9 - Anemia, unspecified Status: Acute Assessment and Plan: H/H 10.1/31.5 Continue home ferrous sulfate BID Give one dose of IV iron Stable at this point Iron 36, TIBC 179, % Sat 20, Transferrin 119, Ferritin 392, Folate 14.1, B12 954 Trend H/H Transfuse i
[2022-02-03 14:35] VITALS: BP 96/54; PULSE 77; RESP 16; TEMP 36.2; O2SAT 99
[2022-02-03] MEDS: SACUBITRIL/VALSARTAN 24-26 MG TABLET 1 TAB PO (16:54)
[2022-02-03] MEDS: RIVAROXABAN 10 MG TABLET PO (16:55)
[2022-02-03 17:00] VITALS: BP 104/68
[2022-02-03 17:18] LABS: Glucose Point of Care 133 mg/dl (65-105)
[2022-02-05 14:07] LABS: Osmolality, Urine 528 mOsm/kg (50-1200)
== END 2022-02-03 18:00 | disposition home health service (06) ==
LOC: ANHED 14:07 → ANH2MED 17:16
PROVIDERS: Emergency Medicine; Nurse Practitioner; Admitting Provider Chiropractor; Emergency Provider Emergency Medicine; PCP Family Medicine; Visit Provider Chiropractor
DX: L03.116 Cellulitis of left lower limb (principal); K13.79 Other lesions of oral mucosa; L03.115 Cellulitis of right lower limb; N17.9 Acute kidney failure, unspecified; I48.20 Chronic atrial fibrillation, unspecified; I11.0 Hypertensive heart disease with heart failure; I50.42 Chronic combined systolic (congestive) and diastolic (congestive) heart failure; M10.9 Gout, unspecified; E78.5 Hyperlipidemia, unspecified; E11.59 Type 2 diabetes mellitus with other circulatory complications; I87.2 Venous insufficiency (chronic) (peripheral); E11.51 Type 2 diabetes mellitus with diabetic peripheral angiopathy without gangrene; D64.9 Anemia, unspecified; E88.81 Metabolic syndrome and other insulin resistance; F81.9 Developmental disorder of scholastic skills, unspecified; J90 Pleural effusion, not elsewhere classified; M86.9 Osteomyelitis, unspecified; I99.8 Other disorder of circulatory system; I45.2 Bifascicular block; R94.31 Abnormal electrocardiogram [ECG] [EKG]; I07.1 Rheumatic tricuspid insufficiency; I27.20 Pulmonary hypertension, unspecified; Z89.422 Acquired absence of other left toe(s); Z79.01 Long term (current) use of anticoagulants; Z79.1 Long term (current) use of non-steroidal anti-inflammatories (NSAID); Z79.51 Long term (current) use of inhaled steroids; Z79.52 Long term (current) use of systemic steroids; Z79.84 Long term (current) use of oral hypoglycemic drugs; Z79.899 Other long term (current) drug therapy; Z83.3 Family history of diabetes mellitus; Z82.49 Family history of ischemic heart disease and other diseases of the circulatory system
CPT/HCPCS: 36415; 71045; 80053; 82570; 82607; 82728; 82746; 82948; 83036; 83540; 83550; 83605; 83690; 83735; 83880; 83935; 84300; 84443; 84466; 84484; 84540; 85025; 85610; 85730; 87040; 93005; 93306; 93970; 96361; 96365; 96366; 96367; 96372; 97161; 97165; 99285; A9270; G0378; J1650; J1756; J1815; J2543; J7030

== ENCOUNTER 2022-02-09 11:16 | Outpatient (CLI) | payer MEDICARE, MEDICAID, SELFPAY ==
[2022-02-09 18:59] LABS: Hematocrit 37.4 % (42.0-52.0); Hemoglobin 11.7 g/dL (14.0-18.0); Mean Corpuscular HGB Conc 31.3 g/dl (32-36); Mean Corpuscular Hemoglobin 30.1 pg (26-34); Mean Corpuscular Volume 96.1 fl (80-100); Mean Platelet Volume 9.7 fl (7.4-10.4); Platelet Count Result 265 k/mm3 (150-375); Red Blood Count 3.89 M/mm3 (4.6-6.20); White Blood Count 12.2 K/mm3 (4.5-10.0)
[2022-02-09 19:13] LABS: Alanine Aminotransferase 25 U/L (6-50); Albumin Level 4.1 g/dL (3.5-5.1); Alkaline Phosphatase 305 U/L (38-126); Anion Gap 10 mmol/L (8-16); Aspartate Amino Transferase 59 U/L (17-59); Bilirubin,Total 0.7 mg/dL (0.2-1.3); Blood Urea Nitrogen 62 mg/dL (9-20); Calcium 9.5 mg/dL (8.4-10.2); Carbon Dioxide 25 mmol/L (22-30); Chloride 104 mmol/L (98-107); Estimated Glomerular Filt Rate 46; Glucose 182 mg/dL (65-110); Potassium 4.7 mmol/L (3.4-5.0); Sodium 139 mmol/L (137-145)
== END 2022-02-09 11:17 | disposition home or self-care (01) ==
LOC: ANHGOSHLAB 11:21
PROVIDERS: PCP Family Medicine; Visit Provider Nurse Practitioner
DX: N17.9 Acute kidney failure, unspecified (principal); D64.9 Anemia, unspecified
CPT/HCPCS: 36415; 80053; 85027

== ENCOUNTER 2022-02-23 15:04 | Outpatient (CLI) | payer MEDICARE, MEDICAID, SELFPAY ==
--- NOTE | ~2022-02-23 | CT_ITS ---
EXAMINATION: CT chest abdomen pelvis w con DATE: 02/23/2022 15:53 INDICATION: Malignant neoplasm of the colon TECHNIQUE: Transaxial computed tomographic images of the chest, abdomen, and pelvis were obtained aft er the administration of 100 cc of Omnipaque 350 intravenous contrast. The dose-length product (DLP) was 1671.99 mGy-cm. Automated exposure control and iterative reconstruction technique were employed. COMPARISON: 07/22/2021 FINDINGS: CHEST CT: There is a new 1.5 x 1.1 cm nodule of the right upper lobe. Also seen is a new 7 mm x 6 mm nodule of the right upper lobe. Previously seen tiny nodules of the left lower lobe are now confluent and have increased in size and are now seen is a 2.8 x 2.3 x 3.8 cm mass of the left lower lobe. Additional sm aller new pulmonary nodules are identified. No pleural effusion or pneumothorax. Cardiomegaly is note d. There are no pathologically enlarged thoracic lymph nodes. There is moderate thoracic spondylosis. ABDOMEN/PELVIS CT: An ill-defined 7.8 x 6.5 cm mass left hepatic lobe has increased in size, previously measuring 3 cm. The pancreas and adrenal glands are normal. Stones are present in the nondistended gallbladder. There is a 2.3 cm cyst of the spleen. Cysts of the kidneys measure up to 5.4 cm on the right. No pathologi conrado enlarged abdominal or pelvic lymph nodes are identified. There is no free intraperitoneal gas o r evidence of bowel obstruction. A surgical anastomosis is noted at the rectum. There is circumferent ial wall thickening of the urinary bladder which could reflect chronic outlet obstruction versus cyst itis. There are bilateral inguinal hernias containing fat. There is severe lumbar spondylosis. IMPRESSION: 1. New and enlarging pulmonary nodules and masses and enlarging ill-defined liver mass, consistent wi th metastatic disease. Reviewed, dictated and finalized at location A. MASTER IMPRESSION: 1. New and enlarging pulmonary nodules and masses and enlarging ill-defined thalia er mass, consistent with metastatic disease.
== END 2022-02-23 15:05 | disposition home or self-care (01) ==
PROVIDERS: PCP Family Medicine; Visit Provider Internal Medicine Hematology & Oncology
DX: C18.8 Malignant neoplasm of overlapping sites of colon (principal); K76.89 Other specified diseases of liver
CPT/HCPCS: 71260; 74177; Q9967

== ENCOUNTER 2022-03-03 10:27 | Observation (INO) | payer MEDICARE, MEDICAID, SELFPAY ==
--- NOTE | ~2022-03-03 | XR_ITS ---
Portable chest x-ray Comparison: 02/01/2022 Clinical History: Dyspnea Findings: Left-sided Mediport unchanged. Focal retrocardiac airspace disease or pulmonary nodule pre sent. Right lung clear. Cardiomediastinal silhouette is stable. Bones and soft tissues are unremarka ble. Impression: Left-sided Mediport. Focal retrocardiac airspace disease or pulmonary nodule. Consider CT to better evaluate for pulmonary nodule. Given presence of a Mediport, this could reflect a metastatic/neoplastic lesion. Reviewed, dictated and finalized at location . FLIPPER Impression: Left-sided Mediport. Focal retrocardiac airspace disease or pulmonary nodule. Consider CT to better evaluate for pulmonary nodule. Given presence of a Mediport, this could reflect a metastatic/neoplastic lesion.
--- NOTE | ~2022-03-03 | US_ITS ---
EXAMINATION:US venous doppler LE LT INDICATION:Left leg pain with discoloration TECHNIQUE: Multiple grayscale, color flow and Doppler images of the left lower extremity deep venous systems were obtained and reviewed. COMPARISON:02/01/2022 FINDINGS: The common femoral, superficial femoral and popliteal veins demonstrate normal respiratory variation, augmentation and compressibility. Color flow is also seen within the posterior tibial, pe roneal, greater saphenous and profunda veins. IMPRESSION: 1: No lower extremity deep venous thrombosis. Reviewed, dictated and finalized at location A. N RESOURCES BENEFITS SPECIALIST
[2022-03-03 10:33] VITALS: BP 98/50; PULSE 78; RESP 16; TEMP 37; O2SAT 100
--- NOTE | 2022-03-03 10:34 | PC.NURSE ---
friend Rivas Becerra [phone]
--- NOTE | 2022-03-03 12:38 | ECG_ITS ---
Measurements Intervals [place] Rate: 68 P: CT: 0 QRS: -40 QRSD: 126 T: 58 QT: 440 QTc: 470 Interpretive Statements ATRIAL FIBRILLATION LEFT AXIS DEVIATION [QRS AXIS < -30] POSSIBLE RIGHT VENTRICULAR CONDUCTION DELAY [RSR (QR) IN V1/V2] POSSIBLE LEFT VENTRICULAR HYPERTROPHY [VOLTAGE CRITERIA PLUS LAE OR QRS WIDENING] COMPARED TO ECG 02/01/2022 11:23:06 HEART RATE IS LOWER NOW Electronically Signed On 03-03-2022 18:02:54 BATTERY TEST ENGINEER by Jose Angel Torres M.D.
--- NOTE | 2022-03-03 13:16 | ED.LOWEXIN ---
HPI - Extremity Injury (Lower) General Chief Complaint: Skin/Abscess/Foreign Body Stated Complaint: left leg problems Time Seen by Provider: 03/03/22 12:26 History of Present Illness HPI Narrative: Pt presents with bilateral lower extremity swelling and redness for several days. Pt denies fever or chills or significant SOB. Pt has had lasix dose increased recently due to swelling. Related Data Home Medications Medication Instructions Recorded Confirmed fluticasone propionate 50 2 spray intranasal DAILY 02/05/19 02/24/22 mcg/actuation nasal spray,suspension (Allergy Relief (fluticasone)) loperamide 2 mg capsule (Imodium 2 mg PO Q4H PRN Diarrhea 09/20/19 02/24/22 A-D) cyanocobalamin (vitamin B-12) 500 mcg PO DAILY 12/10/19 02/24/22 1,000 mcg tablet (Vitamin B-12) ferrous sulfate 325 mg (65 mg 325 mg PO Q12H 12/10/19 02/24/22 iron) tablet diltiazem HCl 240 mg capsule,24 240 mg PO DAILY 06/03/20 02/24/22 hr,extended release loratadine 10 mg tablet (Claritin) 10 mg PO DAILY 10/08/20 02/24/22 multivitamin 1 tablet PO DAILY 10/08/20 02/24/22 linagliptin 5 mg tablet (Tradjenta) 5 mg PO QAM 12/21/21 02/24/22 rivaroxaban 10 mg tablet (Xarelto) 20 mg PO DAILY 02/24/22 02/24/22 Allergies Allergy/AdvReac Type Severity Reaction Status Date / Time vancomycin Allergy Rash Verified 02/24/22 13:58 Review of Systems Review of Systems: All systems reviewed & are unremarkable except as noted in HPI and below [facility] Past Medical History Medical History Adenocarcinoma of sigmoid colon (~07/28/18) Status post low anterior resection and chemotherapy. Atrial fibrillation Atrial fibrillation with rapid ventricular response Bilateral leg ulcer Cellulitis Chemotherapy induced diarrhea Chronic anemia Colon cancer Receiving chemotherapy treatment. Congestive heart failure Echocardiogram in January 2020 showed mildly enlarged left ventricle with mild reduction left ventricular function with an EF of 45 to 50% as well as significant biatrial dilatation and small amounts of atrial, mitral, and tricuspid regurgitation. 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 Malignant neoplasm of overlapping sites of colon Metabolic syndrome Metabolic syndrome X Mixed hyperlipidemia Neuropathy Osteomyelitis Status post amputation of left 2nd toe. Pancytopenia Peripheral vascular disease Right foot ulcer Shock Thrombocytopenia Toe osteomyelitis, left Type 2 diabetes mellitus Ulceration Unspecified atrial fibrillation Varicose veins of bilateral lower extremities with other complications Wound of skin Surgical History Surgical History History of amputation of lesser toe of left foot Treatment of osteomyelitis in 10/2013 & 01/2015. History of partial colectomy (~07/2017) Hand assisted laparoscopic low anterior resection with colorectal anastomosis for treatment of colon cancer. History of removal of pigmented skin lesion History of skin graft To poorly healing wound of the lower extremity. Port-A-Cath in place Family History Family History Mother Diabetes mellitus Father Cerebrovascular accident Other Family history of arthritis Family history of cardiovascular disease Family history of heart disease in male family member before age 55 Family history of thyroid disease Social History Social History Social History: The patient lives alone in his own apartment in [place]. He is single and never had children. 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
[2022-03-03 13:29] LABS: Basophils Percent Auto 0.7 % (0.2-1.2); Eosinophils Absolute Auto 0.6 K/mm3 (0-0.3); Eosinophils Percent Auto 10.1 % (0-4.4); Hematocrit 38.5 % (42.0-52.0); Hemoglobin 12.6 g/dL (14.0-18.0); Immature Granulocyte Absolute 0.04 K/mm3 (0.00-0.031); Immature Granulocyte Percent A 0.7 % (0-0.5); Lymphocytes Absolute Auto 2.14 K/mm3 (0.9-3.2); Lymphocytes Percent Auto 36.6 % (18.3-44.2); Mean Corpuscular HGB Conc 32.7 g/dl (32-36); Mean Corpuscular Hemoglobin 30.7 pg (26-34); Mean Corpuscular Volume 93.7 fl (80-100); Mean Platelet Volume 9.6 fl (7.4-10.4); Monocytes Absolute Auto 0.5 K/mm3 (0.1-0.6); Monocytes Percent Auto 7.7 % (2.6-8.5); Neutrophils Absolute Auto 2.6 K/mm3 (1.3-6.7); Neutrophils Percent Auto 44.2 % (45.5-73.1); Platelet Count Result 270 k/mm3 (150-375); Red Blood Count 4.11 M/mm3 (4.6-6.20); Red Cell Distribution Width 16.5 % (11.5-14.5); White Blood Count 5.9 K/mm3 (4.5-10.0)
[2022-03-03 13:32] LABS: Lactic Acid Reflex 1.4 mmol/L (0.7-2.0)
[2022-03-03 13:36] LABS: Alanine Aminotransferase 21 U/L (6-50); Albumin Level 4.1 g/dL (3.5-5.1); Alkaline Phosphatase 282 U/L (38-126); Anion Gap 8 mmol/L (8-16); Aspartate Amino Transferase 24 U/L (17-59); Bilirubin,Total 0.4 mg/dL (0.2-1.3); Blood Urea Nitrogen 44 mg/dL (9-20); CRP 2.6 mg/dL (<1.0); Calcium 9.1 mg/dL (8.4-10.2); Carbon Dioxide 23 mmol/L (22-30); Chloride 108 mmol/L (98-107); Estimated CRCL calculation 57 ml/min; Estimated Glomerular Filt Rate 50; Glucose 150 mg/dL (65-110); Potassium 3.4 mmol/L (3.4-5.0); Sodium 139 mmol/L (137-145)
[2022-03-03 13:38] LABS: Prothrombin Time 21.6 Seconds (11.1-14.7)
[2022-03-03 13:39] LABS: Partial Thromboplastin Time 47.5 SECONDS (22.3-36.8)
[2022-03-03 13:45] LABS: NT Pro B Type Natriuretic Pept 1930 pg/mL (5-100); Troponin I < 0.012 ng/mL (0.000-0.034)
--- NOTE | 2022-03-03 17:30 | PM.IMHP ---
H&P: HPI History of Present Illness Date/Time: 03/03/22 17:30 Chief Complaint: Skin abscess Narrative: This is a 71-year-old male patient who has chronic venous stasis dermatitis. Today the patient came in with increased swelling to lower extremity with redness for several days. The patient has had Lasix dose increased due to swelling. White count is normal. Patient is 12.6 and 30.5. BUN 44 and creatinine 1.4. C reactive protein is 2.6. BNP is 1930. Influenza a B and COVID are negative. Chest x-ray shows a left-sided MediPort. Focal retrocardiac airspace disease or pulmonary nodule. Consider CT for better evaluation of pulmonary nodule. Venous Dopplers no pulmonary extremity deep vein thrombosis. The patient was given Ancef in the emergency room. The patient is being admitted to observation status on the date of service of 03/03/2022. Review of Systems Review of Systems: See HPI All systems reviewed & are unremarkable except as noted in HPI and below Constitutional: Constitutional: Reports as per HPI and Reports no additional constitutional complaints Eyes: Eyes: Reports as per HPI and Reports no additional eye complaints ENT: Reports system reviewed and no additional complaints, except as documented and Reports Normal hearing present Cardiovascular: Cardiovascular: Reports no additional cardiovascular complaints Respiratory: Respiratory: Reports no additional respiratory complaints and Reports no additional respiratory complaints Gastrointestinal: Gastrointestinal: Reports as per HPI and Reports no additional gastrointestinal complaints Musculoskeletal: Musculoskeletal: Reports no additional musculoskeletal complaints Integumentary/Breasts: Skin/Breast: Reports system reviewed and no additional complaints, except as docu and Reports as per HPI Neurologic: Reports system reviewed and no additional complaints, except as documented, Reports as per HPI and Reports Normal hearing present Psychiatric: Psychiatric: Reports no additional psychiatric complaints and Reports as per HPI Endocrine: Endocrine: Reports no additional endocrine complaints Hematologic/Lymphatic: Hematologic/Lymphatic: Reports no additional hematologic/lymphatic complaints Allergic/Immunologic: Allergic/Immunologic: Reports no additional allergic/immunologic complaints [facility] Past Medical History Medical History Adenocarcinoma of sigmoid colon (~07/28/18) Status post low anterior resection and chemotherapy. Atrial fibrillation Atrial fibrillation with rapid ventricular response Bilateral leg ulcer Cellulitis Chemotherapy induced diarrhea Chronic anemia Colon cancer Receiving chemotherapy treatment. Congestive heart failure Echocardiogram in January 2020 showed mildly enlarged left ventricle with mild reduction left ventricular function with an EF of 45 to 50% as well as significant biatrial dilatation and small amounts of atrial, mitral, and tricuspid regurgitation. Diabetic peripheral neuropathy Essential hypertension Foot ulcer Gout Hyponatremia Incomplete right bundle branch block Ischemia Learning disability prison current use of anticoagulant On warfarin for stroke prophylaxis due to atrial fibrillation. Malignant neoplasm of overlapping sites of colon Metabolic syndrome Metabolic syndrome X Mixed hyperlipidemia Neuropathy Osteomyelitis Status post amputation of left 2nd toe. Pancytopenia Peripheral vascular disease Right foot ulcer Shock Thrombocytopenia Toe osteomyelitis, left Type 2 diabetes mellitus Ulceration Unspecified atrial fibrillation Varicose veins of bilateral lower extremities with other complications Wound of skin Surgical History Surgical History History of amputation of lesser toe of left foot Treatment of osteomyelitis in 10/2013 & 01/2015. History of partial colectomy (~07/2017) Hand assist
[2022-03-03 18:00] VITALS: BP 106/63; PULSE 78; RESP 16; O2SAT 100
[2022-03-03 18:20] LABS: Influenza A QL RT-PCR Negative (Negative); Influenza B QL RT-PCR Negative (Negative); SARS-CoV-2 RNA PCR Negative
[2022-03-03 22:00] VITALS: BP 114/69; PULSE 113; RESP 16; TEMP 36.2; O2SAT 100
[2022-03-03 22:15] VITALS: BP 112/74; PULSE 86; RESP 16; O2SAT 98
[2022-03-03 22:50] VITALS: BMI 31.1
--- NOTE | 2022-03-03 23:05 | ADMGEN ---
This patient, Donaldo Booker, was admitted to [facility] Surg Room 325-01. Patient/family oriented to hospital policies and general routines including ID bracelet, bed and alarms, visiting hours, pain management, procedures, bathroom and other care routines, personal items, smoking policy, room service/diet, and visiting hours. Information on how to activate the Rapid Response Team has been discussed. Patient/Family are encouraged to report perceived risks to care and to ask questions if they do not understand what they are told or what they should do.
[2022-03-04] VITALS (8 sets, daily range): BP systolic 92–97; BP diastolic 55–62; PULSE 50–86; RESP 16–18; TEMP 36–36.6; O2SAT 99–100; BMI 24.9
[2022-03-04] MEDS: METOPROLOL TARTRATE 50 MG TAB PO ×3 (00:56→20:34)
[2022-03-04] MEDS: SIMVASTATIN 10 MG TABLET PO ×2 (00:56→20:36)
[2022-03-04 01:01] LABS: Hemoglobin A1C 7.1 % (<5.7)
[2022-03-04] MEDS: metroNIDAZOLE 500 MG/ISO 100ML 500 MG/100 ML BAG 100 MG IVPB ×4 (01:20→22:00)
[2022-03-04 06:32] LABS: Hemoglobin 10.8 g/dL (14.0-18.0); Mean Corpuscular HGB Conc 32.7 g/dl (32-36); Mean Corpuscular Hemoglobin 30.4 pg (26-34); Mean Platelet Volume 9.2 fl (7.4-10.4); Platelet Count Result 198 k/mm3 (150-375); Red Blood Count 3.55 M/mm3 (4.6-6.20); Red Cell Distribution Width 16.4 % (11.5-14.5)
[2022-03-04 07:01] LABS: Lactic Acid Reflex 0.9 mmol/L (0.7-2.0)
[2022-03-04 07:05] LABS: Alanine Aminotransferase 16 U/L (6-50); Albumin Level 3.3 g/dL (3.5-5.1); Alkaline Phosphatase 246 U/L (38-126); Anion Gap 7 mmol/L (8-16); Aspartate Amino Transferase 19 U/L (17-59); Bilirubin,Total 0.5 mg/dL (0.2-1.3); Blood Urea Nitrogen 38 mg/dL (9-20); Calcium 8.6 mg/dL (8.4-10.2); Carbon Dioxide 20 mmol/L (22-30); Chloride 113 mmol/L (98-107); Estimated CRCL calculation 63 ml/min; Estimated Glomerular Filt Rate 60; Glucose 101 mg/dL (65-110); Magnesium 2.2 mg/dL (1.6-2.3); Potassium 3.1 mmol/L (3.4-5.0); Sodium 140 mmol/L (137-145)
[2022-03-04 08:21] LABS: Glucose Point of Care 107 mg/dl (65-105)
[2022-03-04 08:50] LABS: CRP 2.1 mg/dL (<1.0)
[2022-03-04] MEDS: MULTIVITAMINS THERAPEUTIC TAB (*BKC) 1 TABLET PO (08:58)
[2022-03-04] MEDS: FLUTICASONE PROPIONATE 0.05% NA SPR 16 GM BTL (*BKC) 2 SPRAY NASAL (08:59)
[2022-03-04] MEDS: MICONAZOLE NITRATE 2% CREAM 30 GM TUBE 1 APPLIC TOPICAL (08:59)
[2022-03-04] MEDS: SILVERGEL (ELTA) 45 ML 1 APPLIC TOPICAL (08:59)
[2022-03-04] MEDS: TRIAMCINOLONE ACET 0.1% CREAM 15 GM TUBE 1 APPLIC TOPICAL ×3 (08:59→17:46)
[2022-03-04] MEDS: POTASSIUM CHLORIDE 20 MEQ PACKET (FOR LIQUID) 40 MEQ PO (09:01)
[2022-03-04] MEDS: SACUBITRIL/VALSARTAN 24-26 MG TABLET 1 TAB PO ×2 (09:01→17:46)
[2022-03-04] MEDS: EMPAGLIFLOZIN 10 MG TABLET PO (09:02)
[2022-03-04] MEDS: CYANOCOBALAMIN 500 MCG TABLET PO (09:02)
[2022-03-04] MEDS: FERROUS SULFATE 324 MG TABLET PO ×2 (09:02→20:34)
[2022-03-04] MEDS: LORATADINE 10 MG TABLET PO (09:02)
[2022-03-04] MEDS: FUROSEMIDE 40 MG TABLET PO ×2 (09:02→17:46)
[2022-03-04] MEDS: POTASSIUM CHLORIDE 20 MEQ TABLET.ER PO (09:02)
[2022-03-04] MEDS: allopurinoL 300 MG TABLET PO (09:02)
--- NOTE | 2022-03-04 15:18 | PM.IMPN ---
Progress Note: A&P Assessment and Plan (1) Atrial fibrillation: Qualifiers: Atrial fibrillation type: unspecified chronic Qualified Code(s): I48.20 - Chronic atrial fibrillation, unspecified Code(s): I48.91 - Unspecified atrial fibrillation Status: Chronic Assessment and Plan: Rate controlled, continue home meds (2) Cellulitis, leg: Code(s): L03.119 - Cellulitis of unspecified part of limb Status: Acute Assessment and Plan: Do not suspect cellulitis, follow-up blood cultures, continue antibiotics for now Appears to be consistent with chronic venous stasis dermatitis (3) Chronic anemia: Code(s): D64.9 - Anemia, unspecified Status: Acute Assessment and Plan: Stable, monitor (4) Congestive heart failure: Qualifiers: Heart failure chronicity: chronic Heart failure type: diastolic Qualified Code(s): I50.32 - Chronic diastolic (congestive) heart failure Code(s): I50.9 - Heart failure, unspecified Status: Chronic Assessment and Plan: Echo from February 02, 2022 showed an EF of 45-50% with mild pulmonary hypertension and no significant valvular abnormalities (5) Essential hypertension: Code(s): I10 - Essential (primary) hypertension Status: Acute Assessment and Plan: Stable, continue home meds (6) Hyperlipidemia LDL goal <100: Code(s): E78.5 - Hyperlipidemia, unspecified Status: Acute Assessment and Plan: Continue statin (7) Type 2 diabetes mellitus with other circulatory complications: Code(s): E11.59 - Type 2 diabetes mellitus with other circulatory complications Status: Chronic Assessment and Plan: Accu-Cheks, sliding scale insulin, continue Januvia (8) Colon cancer: Code(s): C18.9 - Malignant neoplasm of colon, unspecified Status: Chronic Assessment and Plan: New lung nodules noted, recent CT consistent with metastatic disease, oncology consult pending Plan DVT prophylaxis with Xarelto GI prophylaxis not indicated Code status full code Subjective Date/time seen: 03/04/22 15:18 Objective Data Vital Signs Vital Signs: Vital Signs - 24 hr 03/03/22 18:00 03/03/22 22:15 03/03/22 22:00 Temperature 97.2 F L Pulse Rate 78 86 113 H Respiratory Rate 16 16 16 Blood Pressure 106/63 112/74 114/69 Pulse Oximetry 100 98 100 Oxygen Delivery 03/04/22 00:56 03/04/22 02:50 03/04/22 06:00 Temperature 96.8 F L Pulse Rate 86 86 72 Respiratory Rate 16 16 Blood Pressure 92/56 L Pulse Oximetry 100 Oxygen Delivery Room Air 03/04/22 09:01 03/04/22 09:00 Temperature Pulse Rate 80 Respiratory Rate Blood Pressure Pulse Oximetry Oxygen Delivery Room Air Intake/Output Intake/Output: Intake & Output 03/01/22 03/02/22 03/03/22 03/04/22 23:59 23:59 23:59 23:59 Intake Total 50 1160 Output Total 250 Balance 50 910 Meds/Results Medications: Active Medications Generic Name Dose Route Start Last Admin Trade Name Freq PRN Reason Stop Dose Admin Acetaminophen 650 mg 03/03/22 23:48 Acetaminophen 325 Mg Tablet PO Q4H PRN Mild Pain (1-3) Or Fever Allopurinol 300 mg 03/04/22 09:00 03/04/22 09:02 Allopurinol 300 Mg Tablet PO 300 mg DAILY SOCRATES Administration Cyanocobalamin 500 mcg 03/04/22 09:00 03/04/22 09:02 Cyanocobalamin 500 Mcg Tablet PO 500 mcg DAILY SOCRATES Administration Dextrose 12.5 gm 03/04/22 00:05 Dextrose 50% 25 Gm/50 Ml Syringe IV PUSH PRN PRN Hypoglycemia Protocol Diltiazem HCl 240 mg 03/04/22 09:00 03/04/22 09:02 Diltiazem Hcl Cd 240 Mg Cap.Er.24h PO 240 mg DAILY SOCRATES Administration Empagliflozin 10 mg 03/04/22 09:00 03/04/22 09:02 Empagliflozin 10 Mg Tablet PO 10 mg DAILY SOCRATES Administration Famotidine 20 mg 03/03/22 23:48 Famotidine 20 Mg Tablet PO BID PRN heartburn Ferrous Sulfat
[2022-03-04 16:25] LABS: Glucose Point of Care 144 mg/dl (65-105)
[2022-03-04] MEDS: RIVAROXABAN 20 MG TABLET PO (17:46)
[2022-03-04 20:54] LABS: Glucose Point of Care 175 mg/dl (65-105)
[2022-03-05 06:00] VITALS: BP 106/65; PULSE 70; RESP 18; TEMP 36.2; O2SAT 99
[2022-03-05] MEDS: metroNIDAZOLE 500 MG/ISO 100ML 500 MG/100 ML BAG 100 MG IVPB (07:36)
[2022-03-05 08:01] LABS: Glucose Point of Care 132 mg/dl (65-105)
[2022-03-05 09:12] VITALS: PULSE 78
[2022-03-05] MEDS: TRIAMCINOLONE ACET 0.1% CREAM 15 GM TUBE 1 APPLIC TOPICAL ×2 (09:12→16:22)
[2022-03-05] MEDS: allopurinoL 300 MG TABLET PO (09:12)
[2022-03-05] MEDS: CYANOCOBALAMIN 500 MCG TABLET PO (09:12)
[2022-03-05] MEDS: METOPROLOL TARTRATE 50 MG TAB PO (09:12)
[2022-03-05] MEDS: SACUBITRIL/VALSARTAN 24-26 MG TABLET 1 TAB PO (09:12)
[2022-03-05] MEDS: FUROSEMIDE 40 MG TABLET PO (09:12)
[2022-03-05] MEDS: MULTIVITAMINS THERAPEUTIC TAB (*BKC) 1 TABLET PO (09:12)
[2022-03-05] MEDS: POTASSIUM CHLORIDE 20 MEQ TABLET.ER PO (09:12)
[2022-03-05] MEDS: SILVERGEL (ELTA) 45 ML 1 APPLIC TOPICAL (09:12)
[2022-03-05] MEDS: FERROUS SULFATE 324 MG TABLET PO (09:12)
[2022-03-05] MEDS: FLUTICASONE PROPIONATE 0.05% NA SPR 16 GM BTL (*BKC) 2 SPRAY NASAL (09:13)
[2022-03-05] MEDS: EMPAGLIFLOZIN 10 MG TABLET PO (09:13)
[2022-03-05] MEDS: LORATADINE 10 MG TABLET PO (09:16)
--- NOTE | 2022-03-05 10:44 | PM.DS ---
DS: Admitting Diagnosis Discharge Date 03/08/2022 Admitting Diagnosis Lower extremity weakness DS: Discharge Diagnosis Discharge Diagnosis (1) Atrial fibrillation: Qualifiers: Atrial fibrillation type: unspecified chronic Qualified Code(s): I48.20 - Chronic atrial fibrillation, unspecified Code(s): I48.91 - Unspecified atrial fibrillation Status: Chronic Assessment and Plan: Rate controlled, continue home meds (2) Cellulitis, leg: Code(s): L03.119 - Cellulitis of unspecified part of limb Status: Acute Assessment and Plan: Do not suspect cellulitis, follow-up blood cultures, continue antibiotics for now Appears to be consistent with chronic venous stasis dermatitis (3) Chronic anemia: Code(s): D64.9 - Anemia, unspecified Status: Acute Assessment and Plan: Stable, monitor (4) Congestive heart failure: Qualifiers: Heart failure type: diastolic Heart failure chronicity: chronic Qualified Code(s): I50.32 - Chronic diastolic (congestive) heart failure Code(s): I50.9 - Heart failure, unspecified Status: Chronic Assessment and Plan: Echo from February 02, 2022 showed an EF of 45-50% with mild pulmonary hypertension and no significant valvular abnormalities (5) Essential hypertension: Code(s): I10 - Essential (primary) hypertension Status: Acute Assessment and Plan: Stable, continue home meds (6) Hyperlipidemia LDL goal <100: Code(s): E78.5 - Hyperlipidemia, unspecified Status: Acute Assessment and Plan: Continue statin (7) Type 2 diabetes mellitus with other circulatory complications: Code(s): E11.59 - Type 2 diabetes mellitus with other circulatory complications Status: Chronic Assessment and Plan: Accu-Cheks, sliding scale insulin, continue Januvia (8) Colon cancer: Code(s): C18.9 - Malignant neoplasm of colon, unspecified Status: Chronic Assessment and Plan: New lung nodules noted, recent CT consistent with metastatic disease, oncology consult pending Plan DVT prophylaxis with Xarelto GI prophylaxis not indicated Code status full code DS: Summary Hospital Course Hospital Course: 71-year-old male with past medical history significant for chronic venous stasis dermatitis, atrial fibrillation, diabetes, congestive heart failure, hypertension, hyperlipidemia, colon cancer suspected to be metastatic due to recently found pulmonary nodules and who was discharged to home with home healthcare yesterday after being treated for possible cellulitis in his bilateral lower extremities is presenting today with lower extremity weakness after arriving home.? During his last admission, he refused SNF placement and requested home with home health care.? However, after arriving home, he was too weak to get himself off the toilet and had to call a friend.? He also states that he thinks he twisted his left knee moving around in bed. He states he is not in pain now, but it hurts when he bears weight on his left leg. He feels weakness in both legs, as well, but thinks the pain from twisting his left knee is the main thing making him feel weak. In the ER today, he is aware that he will need placement to SNF.? He is being admitted with PT/OT consultation, care coordination consultation in anticipation of being discharged to an SNF when available.? He was discharged on Keflex which will be continued to complete his course of antibiotics.? He states that the swelling and redness in his lower extremities seems slightly improved from yesterday.? He denies any chest pain or shortness of breath.? No nausea, vomiting or diarrhea.? No fevers or chills.? Due to the recently found pulmonary nodules concerning for metastatic disease from his known colon cancer, he is to follow up with Oncology in the near future. PT/OT consulted, SNF was recommended. He refused SNF and was d/c once again ba
[2022-03-05 11:35] LABS: Glucose Point of Care 162 mg/dl (65-105)
[2022-03-05 14:00] VITALS: BP 102/52; PULSE 97; RESP 22; TEMP 37; O2SAT 100
--- NOTE | 2022-03-05 15:53 | PDONCCN ---
HPI - Date of Consult Date/Time: 03/05/22 15:53 Requesting Physician: Matt Carr MD Primary Care Provider: Carli Caldwell DO - Consult Narrative Reason for consult: Metastatic colon cancer Narrative: Donaldo Booker is a 71 year old male with history of metastatic colon cancer status post liver biopsy done in August 2019. He was originally diagnosed with stage IIIB colon cancer status post resection in July 2017 and adjuvant chemotherapy with FOLFOX regimen. He was seen in the office recently and CT scan was ordered for restaging of his colon cancer. His last chemotherapy was in July 2019 and further treatment was discontinued due to cellulitis and COVID infection. He now came back into the hospital with skin abscess and cellulitis. He denies any fevers and chills. Doppler study showed no evidence of DVT. He was started on Keflex. CT scan was performed on February 23 that showed new and enlarging pulmonary nodule and masses in the liver consistent with progressive disease. He denies any abdominal pain. Denies any melena hematochezia. No chest pain and shortness of breath. Review of Systems - Review of Systems All systems reviewed & are unremarkable except as noted in HPI and bel - Neurologic Reports system reviewed and no additional complaints, except as documented, Reports hearing normal [facility] Medical History: Medical History (Last Reviewed 03/03/22 @ 23:52 by Nataly Villafuerte NP) Adenocarcinoma of sigmoid colon Onset Date: ~07/28/18 Status post low anterior resection and chemotherapy. Atrial fibrillation Atrial fibrillation with rapid ventricular response Bilateral leg ulcer Cellulitis Chemotherapy induced diarrhea Chronic anemia Colon cancer Receiving chemotherapy treatment. Congestive heart failure Echocardiogram in January 2020 showed mildly enlarged left ventricle with mild reduction left ventricular function with an EF of 45 to 50% as well as significant biatrial dilatation and small amounts of atrial, mitral, and tricuspid regurgitation. Diabetic peripheral neuropathy Essential hypertension Foot ulcer Gout Hyponatremia Incomplete right bundle branch block Ischemia Learning disability [facility] current use of anticoagulant On warfarin for stroke prophylaxis due to atrial fibrillation. Malignant neoplasm of overlapping sites of colon Metabolic syndrome Metabolic syndrome X Mixed hyperlipidemia Neuropathy Osteomyelitis Status post amputation of left 2nd toe. Pancytopenia Peripheral vascular disease Right foot ulcer Shock Thrombocytopenia Toe osteomyelitis, left Type 2 diabetes mellitus Ulceration Unspecified atrial fibrillation Varicose veins of bilateral lower extremities with other complications Wound of skin Surgical History: Surgical History (Last Reviewed 12/21/22 @ 23:52 by Nataly Villafuerte NP) History of amputation of lesser toe of left foot Treatment of osteomyelitis in 10/2013 & 01/2015. History of partial colectomy Onset Date: ~07/2017 Hand assisted laparoscopic low anterior resection with colorectal anastomosis for treatment of colon cancer. History of removal of pigmented skin lesion History of skin graft To poorly healing wound of the lower extremity. Port-A-Cath in place Family History: Family History (Last Reviewed 03/03/22 @ 23:52 by Nataly Villafuerte NP) Mother Diabetes mellitus Father Cerebrovascular accident Other Family history of arthritis Family history of cardiovascular disease Family history of heart disease in male family member before age 55 Family history of thyroid disease - Social History Social History: Social History (Last Reviewed 03/03/22 @ 23:52 by Nataly Villafuerte NP) Alcohol Use: Alcohol intake: never Substance Use: Substance use: never Substance use type: does not use Others: Spiritual care concerns: No Smoking Status: Smoking status: Never smoker Social Determinants of Heal
[2022-03-05 16:00] LABS: Glucose Point of Care 156 mg/dl (65-105)
[2022-03-05] MEDS: CEPHALEXIN 500 MG CAPSULE PO (16:22)
== END 2022-03-05 16:55 | disposition home health service (06) ==
LOC: ANHED 16:12 → ANH3MEDSUR 22:16
PROVIDERS: Nurse Practitioner; Admitting Provider Internal Medicine; Emergency Provider Emergency Medicine; PCP Family Medicine; Visit Provider Student in an Organized Health Care Education/Training Program
DX: I48.20 Chronic atrial fibrillation, unspecified (principal); L03.116 Cellulitis of left lower limb; L03.115 Cellulitis of right lower limb; I83.12 Varicose veins of left lower extremity with inflammation; I83.11 Varicose veins of right lower extremity with inflammation; I11.0 Hypertensive heart disease with heart failure; I50.32 Chronic diastolic (congestive) heart failure; D64.9 Anemia, unspecified; E11.40 Type 2 diabetes mellitus with diabetic neuropathy, unspecified; E11.59 Type 2 diabetes mellitus with other circulatory complications; Z20.822 Contact with and (suspected) exposure to COVID-19; C18.9 Malignant neoplasm of colon, unspecified; M10.9 Gout, unspecified; E88.81 Metabolic syndrome and other insulin resistance; E87.1 Hypo-osmolality and hyponatremia; Z89.422 Acquired absence of other left toe(s); Z90.49 Acquired absence of other specified parts of digestive tract; Z95.828 Presence of other vascular implants and grafts; Z79.01 Long term (current) use of anticoagulants; Z79.1 Long term (current) use of non-steroidal anti-inflammatories (NSAID); Z79.52 Long term (current) use of systemic steroids; Z79.51 Long term (current) use of inhaled steroids; Z79.899 Other long term (current) drug therapy; Z83.3 Family history of diabetes mellitus; Z82.49 Family history of ischemic heart disease and other diseases of the circulatory system
CPT/HCPCS: 36415; 71045; 80053; 82948; 83036; 83605; 83735; 83880; 84443; 84484; 85025; 85027; 85610; 85730; 86140; 87040; 87636; 93005; 93971; 96365; 96366; 96367; 96376; 97161; 99285; A9270; G0378; J0690; J0692

== ENCOUNTER 2022-03-05 20:56 | Observation (INO) | payer MEDICARE, MEDICAID, SELFPAY ==
--- NOTE | ~2022-03-05 | XR_ITS ---
EXAM: XR knee LT 2V DATE: 03/06/2022 15:03 HISTORY: pain, swelling . COMPARISON: 02/04/2014. FINDINGS: Normal mineralization. No fracture or dislocation. No lytic or blastic lesion. Moderate me dial and mild lateral joint space narrowing. Moderate tricompartmental osteophytosis. Chondrocalcinos is. No erosion or periosteal change. Moderate volume joint fluid. Soft tissues within normal limits. IMPRESSION: No acute osseous finding in the left knee. Reviewed, dictated and finalized at location [facility] [employer] [facility]
[2022-03-05 21:03] VITALS: BP 122/79; PULSE 86; RESP 18; TEMP 36.6; O2SAT 96
[2022-03-06] VITALS (26 sets, daily range): BP systolic 86–113; BP diastolic 45–80; PULSE 72–137; RESP 17–28; TEMP 36.3–36.6; O2SAT 95–100; BMI 31.9
--- NOTE | 2022-03-06 01:27 | ED.GENADULT ---
HPI - General Adult General Chief complaint: Extremity Problem,Nontraumatic Stated complaint: leg pain Time Seen by Provider: 03/06/22 01:06 History of Present Illness HPI narrative: 71-year-old male with history of chronic left leg pain presented to the emergency department for evaluation of worsening left leg pain. Patient had a recent hospitalization and was just discharged from the hospital today at approximately 4 PM. Patient states after getting home he had worsening of his posterior leg pain. Patient did not take anything for pain control. Patient presented to the emergency department for evaluation. Upon arrival to the emergency room patient states that his leg is not of the time. During patient's work-up when he was here he did have a negative ultrasound of the left leg. In discussion with a friend of the patient it was clarified that the patient was unable to stand from the toilet today. Once the patient is assisted to standing he is able to ambulate at his baseline but the issue is getting to a standing position. Patient does live at home on his own. During his previous admission patient declined placement into a SNF. Patient was also found to have new pulmonary lesions. Patient is scheduled to have outpatient follow-up with heme-onc. Related Data Home Medications Medication Instructions Recorded Confirmed fluticasone propionate 50 2 spray intranasal DAILY 02/05/19 03/03/22 mcg/actuation nasal spray,suspension (Allergy Relief (fluticasone)) loperamide 2 mg capsule (Imodium 2 mg PO Q4H PRN Diarrhea 09/20/19 03/03/22 A-D) cyanocobalamin (vitamin B-12) 500 mcg PO DAILY 12/10/19 03/03/22 1,000 mcg tablet (Vitamin B-12) ferrous sulfate 325 mg (65 mg 325 mg PO Q12H 12/10/19 03/03/22 iron) tablet diltiazem HCl 240 mg capsule,24 240 mg PO DAILY 06/03/20 03/03/22 hr,extended release loratadine 10 mg tablet (Claritin) 10 mg PO DAILY 10/08/20 03/03/22 multivitamin 1 tablet PO DAILY 10/08/20 03/03/22 linagliptin 5 mg tablet (Tradjenta) 5 mg PO QAM 12/21/21 03/03/22 rivaroxaban 10 mg tablet (Xarelto) 20 mg PO DAILY 02/24/22 03/03/22 allopurinol 300 mg tablet 300 mg PO DAILY 03/03/22 03/03/22 metoprolol tartrate 50 mg tablet 50 mg PO BID 03/03/22 03/03/22 Allergies Allergy/AdvReac Type Severity Reaction Status Date / Time vancomycin Allergy Rash Verified 03/05/22 21:07 Review of Systems Review of Systems: CONSTITUTIONAL: Denies fever, chills, or sweats. EYES: Denies visual changes, redness, or discharge. ENT: Denies rhinorrhea, congestion, sore throat, or otalgia. CARDIOVASCULAR: Denies chest pain, palpitations, or edema. RESPIRATORY: Denies cough or dyspnea. GASTROINTESTINAL: Denies abdominal pain, nausea, vomiting, or diarrhea. GENITOURINARY: Denies dysuria or hematuria. SKIN: Denies rash or itching. MUSCULOSKELETAL: Left leg pain and increased lower extremity weakness NEUROLOGIC: Denies headache, numbness, or weakness. PSYCHIATRIC: Denies anxiety or depression. [facility] Past Medical History Medical History Adenocarcinoma of sigmoid colon (~07/28/18) Status post low anterior resection and chemotherapy. Atrial fibrillation Atrial fibrillation with rapid ventricular response Bilateral leg ulcer Cellulitis Chemotherapy induced diarrhea Chronic anemia Colon cancer Receiving chemotherapy treatment. Congestive heart failure Echocardiogram in January 2020 showed mildly enlarged left ventricle with mild reduction left ventricular function with an EF of 45 to 50% as well as significant biatrial dilatation and small amounts of atrial, mitral, and tricuspid regurgitation. 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 Malignant neoplasm of overlap
[2022-03-06] MEDS: HYDROcodone/acetaminophen (*CRX) 5-325 MG TABLET 1 TAB PO (01:43)
--- NOTE | 2022-03-06 01:43 | PC.NURSE ---
VORB to hold off on diltiazem IV push at this time.
[2022-03-06 01:53] LABS: Basophils Absolute Auto 0.1 K/mm3 (0.0-0.1); Basophils Percent Auto 0.8 % (0.2-1.2); Eosinophils Absolute Auto 0.2 K/mm3 (0-0.3); Eosinophils Percent Auto 2.2 % (0-4.4); Hematocrit 36.9 % (42.0-52.0); Immature Granulocyte Absolute 0.11 K/mm3 (0.00-0.031); Immature Granulocyte Percent A 1.5 % (0-0.5); Lymphocytes Absolute Auto 1.74 K/mm3 (0.9-3.2); Lymphocytes Percent Auto 23.9 % (18.3-44.2); Mean Corpuscular HGB Conc 32.5 g/dl (32-36); Mean Corpuscular Hemoglobin 30.4 pg (26-34); Mean Corpuscular Volume 93.4 fl (80-100); Mean Platelet Volume 9.3 fl (7.4-10.4); Monocytes Absolute Auto 1.3 K/mm3 (0.1-0.6); Monocytes Percent Auto 18.2 % (2.6-8.5); Neutrophils Absolute Auto 3.9 K/mm3 (1.3-6.7); Neutrophils Percent Auto 53.4 % (45.5-73.1); Platelet Count Result 226 k/mm3 (150-375); Red Blood Count 3.95 M/mm3 (4.6-6.20); Red Cell Distribution Width 16.8 % (11.5-14.5); White Blood Count 7.3 K/mm3 (4.5-10.0)
[2022-03-06 02:03] LABS: Alanine Aminotransferase 19 U/L (6-50); Albumin Level 3.9 g/dL (3.5-5.1); Alkaline Phosphatase 284 U/L (38-126); Anion Gap 9 mmol/L (8-16); Aspartate Amino Transferase 27 U/L (17-59); Bilirubin,Total 0.7 mg/dL (0.2-1.3); Blood Urea Nitrogen 37 mg/dL (9-20); Calcium 8.9 mg/dL (8.4-10.2); Carbon Dioxide 23 mmol/L (22-30); Chloride 105 mmol/L (98-107); Estimated Glomerular Filt Rate 60; Glucose 152 mg/dL (65-110); Potassium 3.6 mmol/L (3.4-5.0); Sodium 137 mmol/L (137-145)
--- NOTE | 2022-03-06 06:00 | ADMGEN ---
This patient, Donaldo Booker, was admitted to Medical Room 343-01. Patient/family oriented to hospital policies and general routines including ID bracelet, bed and alarms, visiting hours, pain management, procedures, bathroom and other care routines, personal items, smoking policy, room service/diet, and visiting hours. Information on how to activate the Rapid Response Team has been discussed. Patient/Family are encouraged to report perceived risks to care and to ask questions if they do not understand what they are told or what they should do.
[2022-03-06 06:47] LABS: Glucose Point of Care 124 mg/dl (65-105)
--- NOTE | 2022-03-06 07:44 | PM.IMHP ---
H&P: HPI History of Present Illness Date/Time: 03/06/22 07:44 Chief Complaint: Weakness Narrative: 71-year-old male with past medical history significant for chronic venous stasis dermatitis, atrial fibrillation, diabetes, congestive heart failure, hypertension, hyperlipidemia, colon cancer suspected to be metastatic due to recently found pulmonary nodules and who was discharged to home with home healthcare yesterday after being treated for possible cellulitis in his bilateral lower extremities is presenting today with lower extremity weakness after arriving home. During his last admission, he refused SNF placement and requested home with home health care. However, after arriving home, he was too weak to get himself off the toilet and had to call a friend. He also states that he thinks he twisted his left knee moving around in bed. He states he is not in pain now, but it hurts when he bears weight on his left leg. He feels weakness in both legs, as well, but thinks the pain from twisting his left knee is the main thing making him feel weak. In the ER today, he is aware that he will need placement to SNF. He is being admitted with PT/OT consultation, care coordination consultation in anticipation of being discharged to an SNF when available. He was discharged on Keflex which will be continued to complete his course of antibiotics. He states that the swelling and redness in his lower extremities seems slightly improved from yesterday. He denies any chest pain or shortness of breath. No nausea, vomiting or diarrhea. No fevers or chills. Due to the recently found pulmonary nodules concerning for metastatic disease from his known colon cancer, he is to follow up with Oncology in the near future. Review of Systems Review of Systems: 12 point review of systems was assessed and was negative except as noted in the HPI [facility] Past Medical History Medical History Adenocarcinoma of sigmoid colon (~07/28/18) Status post low anterior resection and chemotherapy. Atrial fibrillation Atrial fibrillation with rapid ventricular response Bilateral leg ulcer Cellulitis Chemotherapy induced diarrhea Chronic anemia Colon cancer Receiving chemotherapy treatment. Congestive heart failure Echocardiogram in January 2020 showed mildly enlarged left ventricle with mild reduction left ventricular function with an EF of 45 to 50% as well as significant biatrial dilatation and small amounts of atrial, mitral, and tricuspid regurgitation. 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 Malignant neoplasm of overlapping sites of colon Metabolic syndrome Metabolic syndrome X Mixed hyperlipidemia Neuropathy Osteomyelitis Status post amputation of left 2nd toe. Pancytopenia Peripheral vascular disease Right foot ulcer Shock Thrombocytopenia Toe osteomyelitis, left Type 2 diabetes mellitus Ulceration Unspecified atrial fibrillation Varicose veins of bilateral lower extremities with other complications Wound of skin Surgical History Surgical History History of amputation of lesser toe of left foot Treatment of osteomyelitis in 10/2013 & 01/2015. History of partial colectomy (~07/2017) Hand assisted laparoscopic low anterior resection with colorectal anastomosis for treatment of colon cancer. History of removal of pigmented skin lesion History of skin graft To poorly healing wound of the lower extremity. Port-A-Cath in place Family History Family History Mother Diabetes mellitus Father Cerebrovascular accident Other Family history of arthritis Family history of cardiovascular disease
[2022-03-06 09:11] LABS: Glucose Point of Care 107 mg/dl (65-105)
[2022-03-06 11:22] LABS: Vitamin D 25 Hydroxy 44.5 ng/mL
[2022-03-06 12:42] LABS: Folic Acid 17.7 ng/mL (2.76->20)
[2022-03-06 12:45] LABS: Glucose Point of Care 168 mg/dl (65-105)
[2022-03-06] MEDS: CEPHALEXIN 500 MG CAPSULE PO ×3 (13:19→18:11)
[2022-03-06] MEDS: FERROUS SULFATE 324 MG TABLET PO ×2 (13:20→17:39)
[2022-03-06] MEDS: SACUBITRIL/VALSARTAN 24-26 MG TABLET 1 TAB PO ×2 (13:21→21:42)
[2022-03-06] MEDS: METOPROLOL TARTRATE 50 MG TAB PO ×2 (13:22→21:42)
[2022-03-06] MEDS: FUROSEMIDE 40 MG TABLET PO ×2 (13:24→18:11)
[2022-03-06] MEDS: RIVAROXABAN 10 MG TABLET 20 MG PO (13:24)
[2022-03-06] MEDS: EMPAGLIFLOZIN 10 MG TABLET PO (13:24)
[2022-03-06] MEDS: SILVERGEL (ELTA) 45 ML 1 APPLIC TOPICAL (13:25)
[2022-03-06] MEDS: TRIAMCINOLONE ACET 0.1% CREAM 15 GM TUBE 1 APPLIC TOPICAL ×2 (13:27→17:39)
[2022-03-06 17:34] LABS: Glucose Point of Care 128 mg/dl (65-105)
[2022-03-07] VITALS (13 sets, daily range): BP systolic 84–106; BP diastolic 49–59; PULSE 64–90; RESP 18–20; TEMP 36.2–36.4; O2SAT 98–100
[2022-03-07] MEDS: CEPHALEXIN 500 MG CAPSULE PO ×5 (02:27→23:13)
[2022-03-07 07:33] LABS: Glucose Point of Care 132 mg/dl (65-105)
[2022-03-07 08:55] LABS: Glucose Point of Care 115 mg/dl (65-105)
[2022-03-07] MEDS: LORATADINE 10 MG TABLET PO (09:31)
[2022-03-07] MEDS: METOPROLOL TARTRATE 50 MG TAB PO ×2 (09:31→22:02)
[2022-03-07] MEDS: FERROUS SULFATE 324 MG TABLET PO ×2 (09:31→17:40)
[2022-03-07] MEDS: CYANOCOBALAMIN 500 MCG TABLET PO (09:32)
[2022-03-07] MEDS: allopurinoL 300 MG TABLET PO (09:32)
[2022-03-07] MEDS: SILVERGEL (ELTA) 45 ML 1 APPLIC TOPICAL (09:35)
[2022-03-07] MEDS: MULTIVITAMINS THERAPEUTIC TAB (*BKC) 1 TABLET PO (10:53)
[2022-03-07] MEDS: SACUBITRIL/VALSARTAN 24-26 MG TABLET 1 TAB PO ×2 (10:53→20:50)
[2022-03-07] MEDS: POTASSIUM CHLORIDE 20 MEQ TABLET.ER PO (10:53)
[2022-03-07] MEDS: SIMVASTATIN 10 MG TABLET PO (10:54)
[2022-03-07] MEDS: EMPAGLIFLOZIN 10 MG TABLET PO (10:54)
[2022-03-07] MEDS: FUROSEMIDE 40 MG TABLET PO (10:54)
[2022-03-07] MEDS: RIVAROXABAN 10 MG TABLET 20 MG PO (10:54)
[2022-03-07] MEDS: FLUTICASONE PROPIONATE 0.05% NA SPR 16 GM BTL (*BKC) 2 SPRAY NASAL (10:55)
[2022-03-07] MEDS: TRIAMCINOLONE ACET 0.1% CREAM 15 GM TUBE 1 APPLIC TOPICAL ×3 (10:56→17:41)
[2022-03-07 12:34] LABS: Glucose Point of Care 141 mg/dl (65-105)
[2022-03-07 17:43] LABS: Glucose Point of Care 120 mg/dl (65-105)
--- NOTE | 2022-03-07 18:41 | PM.IMPN ---
Progress Note: A&P Assessment and Plan (1) Leg pain: Qualifiers: Laterality: left Qualified Code(s): M79.605 - Pain in left leg Code(s): M79.606 - Pain in leg, unspecified Status: Acute Assessment and Plan: PT/OT, knee x-ray showed some joint effusion, likely secondary to arthritis, refer to orthopedics outpatient (2) Muscular deconditioning: Code(s): R29.898 - Other symptoms and signs involving the musculoskeletal system Status: Acute Assessment and Plan: Rehab at discharge (3) Leg weakness: Code(s): R29.898 - Other symptoms and signs involving the musculoskeletal system Status: Acute Assessment and Plan: Appreciate PT/OT (4) Colon cancer: Code(s): C18.9 - Malignant neoplasm of colon, unspecified Status: Chronic Assessment and Plan: Follow-up oncology outpatient (5) Metastatic disease: Code(s): C79.9 - Secondary malignant neoplasm of unspecified site Status: Acute Assessment and Plan: New pulmonary nodules, follow-up oncology (6) Venous insufficiency (chronic) (peripheral): Code(s): I87.2 - Venous insufficiency (chronic) (peripheral) Status: Acute Assessment and Plan: Improving, monitor (7) Atrial fibrillation: Qualifiers: Atrial fibrillation type: unspecified chronic Qualified Code(s): I48.20 - Chronic atrial fibrillation, unspecified Code(s): I48.91 - Unspecified atrial fibrillation Status: Chronic Assessment and Plan: Stable (8) Congestive heart failure: Qualifiers: Heart failure type: diastolic Heart failure chronicity: chronic Qualified Code(s): I50.32 - Chronic diastolic (congestive) heart failure Code(s): I50.9 - Heart failure, unspecified Status: Chronic Assessment and Plan: Appears euvolemic (9) Essential hypertension: Code(s): I10 - Essential (primary) hypertension Status: Acute Assessment and Plan: More hypotensive at this point Plan DVT prophylaxis with Xarelto GI prophylaxis not indicated Code status full code Subjective Date/time seen: 03/07/22 18:41 Objective Data Vital Signs Vital Signs: Vital Signs - 24 hr 03/06/22 20:12 03/06/22 21:42 03/06/22 20:00 Temperature 97.9 F Pulse Rate 74 72 73 Respiratory Rate 18 Blood Pressure 102/52 L Pulse Oximetry 100 Oxygen Delivery 03/07/22 00:00 03/07/22 04:00 03/07/22 04:57 Temperature 97.6 F Pulse Rate 76 69 64 Respiratory Rate 20 Blood Pressure 96/59 L Pulse Oximetry 98 Oxygen Delivery 03/07/22 09:31 03/07/22 11:14 03/07/22 08:00 Temperature Pulse Rate 73 90 Respiratory Rate Blood Pressure Pulse Oximetry Oxygen Delivery Room Air 03/07/22 12:00 03/07/22 14:00 03/07/22 16:00 Temperature 97.2 F L Pulse Rate 81 73 69 Respiratory Rate 18 Blood Pressure 84/59 L Pulse Oximetry 100 Oxygen Delivery 03/07/22 18:20 Temperature Pulse Rate Respiratory Rate Blood Pressure 94/57 L Pulse Oximetry Oxygen Delivery Intake/Output Intake/Output: Intake & Output 03/04/22 03/05/22 03/06/22 03/07/22 23:59 23:59 23:59 23:59 Intake Total 720 720 Output Total 300 875 Balance 420 -155 Meds/Results Medications: Active Medications Generic Name Dose Route Start Last Admin Trade Name Freq PRN Reason Stop Dose Admin Acetaminophen 650 mg 03/06/22 10:22 Acetaminophen 325 Mg Tablet PO Q4H PRN Mild Pain (1-3) Or Fever Allopurinol 300 mg 03/07/22 09:00 03/07/22 09:32 Allopurinol 300 Mg Tablet PO 300 mg DAILY SOCRATES Administration Cephalexin HCl 500 mg 03/06/22 10:25 03/07/22 17:40 Cephalexin 500 Mg Capsule PO 500 mg Q6HR SOCRATES Administration Cyanocobalamin 500 mcg 03/07/22 09:00 03/07/22 09:32 Cyanocobalamin 500 Mcg Tablet PO 500 mcg DAILY SOCRATES Administration Diltiazem HCl 240 mg 03/06/22 10:
[2022-03-07 21:02] LABS: Glucose Point of Care 192 mg/dl (65-105)
[2022-03-08] VITALS (9 sets, daily range): BP systolic 100–101; BP diastolic 47–58; PULSE 64–112; RESP 18; TEMP 35.9–36.6; O2SAT 98–100
[2022-03-08] MEDS: CEPHALEXIN 500 MG CAPSULE PO ×2 (05:17→12:08)
[2022-03-08 08:44] LABS: Glucose Point of Care 120 mg/dl (65-105)
[2022-03-08] MEDS: FERROUS SULFATE 324 MG TABLET PO (09:30)
[2022-03-08] MEDS: allopurinoL 300 MG TABLET PO (09:30)
[2022-03-08] MEDS: MULTIVITAMINS THERAPEUTIC TAB (*BKC) 1 TABLET PO (09:30)
[2022-03-08] MEDS: POTASSIUM CHLORIDE 20 MEQ TABLET.ER PO (09:30)
[2022-03-08] MEDS: RIVAROXABAN 10 MG TABLET 20 MG PO (09:30)
[2022-03-08] MEDS: CYANOCOBALAMIN 500 MCG TABLET PO (09:30)
[2022-03-08] MEDS: FUROSEMIDE 40 MG TABLET PO (09:30)
[2022-03-08] MEDS: EMPAGLIFLOZIN 10 MG TABLET PO (09:30)
[2022-03-08] MEDS: LORATADINE 10 MG TABLET PO (09:31)
[2022-03-08] MEDS: SACUBITRIL/VALSARTAN 24-26 MG TABLET 1 TAB PO (09:31)
[2022-03-08] MEDS: METOPROLOL TARTRATE 50 MG TAB PO (09:31)
[2022-03-08] MEDS: SIMVASTATIN 10 MG TABLET PO (09:31)
[2022-03-08] MEDS: FLUTICASONE PROPIONATE 0.05% NA SPR 16 GM BTL (*BKC) 2 SPRAY NASAL (09:32)
[2022-03-08] MEDS: TRIAMCINOLONE ACET 0.1% CREAM 15 GM TUBE 1 APPLIC TOPICAL ×2 (09:32→12:08)
[2022-03-08] MEDS: SILVERGEL (ELTA) 45 ML 1 APPLIC TOPICAL (09:32)
[2022-03-08 12:40] LABS: Glucose Point of Care 160 mg/dl (65-105)
--- NOTE | 2022-03-08 15:25 | PM.DS ---
DS: Admitting Diagnosis Discharge Date 03/08/22 Admitting Diagnosis weakness DS: Discharge Diagnosis Discharge Diagnosis (1) Leg pain: Qualifiers: Laterality: left Qualified Code(s): M79.605 - Pain in left leg Code(s): M79.606 - Pain in leg, unspecified Status: Acute Assessment and Plan: PT/OT, knee x-ray showed some joint effusion, likely secondary to arthritis, refer to orthopedics outpatient (2) Muscular deconditioning: Code(s): R29.898 - Other symptoms and signs involving the musculoskeletal system Status: Acute Assessment and Plan: Rehab at discharge (3) Leg weakness: Code(s): R29.898 - Other symptoms and signs involving the musculoskeletal system Status: Acute Assessment and Plan: Appreciate PT/OT (4) Colon cancer: Code(s): C18.9 - Malignant neoplasm of colon, unspecified Status: Chronic Assessment and Plan: Follow-up oncology outpatient (5) Metastatic disease: Code(s): C79.9 - Secondary malignant neoplasm of unspecified site Status: Acute Assessment and Plan: New pulmonary nodules, follow-up oncology (6) Venous insufficiency (chronic) (peripheral): Code(s): I87.2 - Venous insufficiency (chronic) (peripheral) Status: Acute Assessment and Plan: Improving, monitor (7) Atrial fibrillation: Qualifiers: Atrial fibrillation type: unspecified chronic Qualified Code(s): I48.20 - Chronic atrial fibrillation, unspecified Code(s): I48.91 - Unspecified atrial fibrillation Status: Chronic Assessment and Plan: Stable (8) Congestive heart failure: Qualifiers: Heart failure type: diastolic Heart failure chronicity: chronic Qualified Code(s): I50.32 - Chronic diastolic (congestive) heart failure Code(s): I50.9 - Heart failure, unspecified Status: Chronic Assessment and Plan: Appears euvolemic (9) Essential hypertension: Code(s): I10 - Essential (primary) hypertension Status: Acute Assessment and Plan: More hypotensive at this point Plan DVT prophylaxis with Xarelto GI prophylaxis not indicated Code status full code DS: Summary Hospital Course Hospital Course: 71-year-old male with past medical history significant for chronic venous stasis dermatitis, atrial fibrillation, diabetes, congestive heart failure, hypertension, hyperlipidemia, colon cancer suspected to be metastatic due to recently found pulmonary nodules and who was discharged to home with home healthcare yesterday after being treated for possible cellulitis in his bilateral lower extremities is presenting today with lower extremity weakness after arriving home.? During his last admission, he refused SNF placement and requested home with home health care.? However, after arriving home, he was too weak to get himself off the toilet and had to call a friend.? He also states that he thinks he twisted his left knee moving around in bed. He states he is not in pain now, but it hurts when he bears weight on his left leg. He feels weakness in both legs, as well, but thinks the pain from twisting his left knee is the main thing making him feel weak. In the ER today, he is aware that he will need placement to SNF.? He is being admitted with PT/OT consultation, care coordination consultation in anticipation of being discharged to an SNF when available.? He was discharged on Keflex which will be continued to complete his course of antibiotics.? He states that the swelling and redness in his lower extremities seems slightly improved from yesterday.? He denies any chest pain or shortness of breath.? No nausea, vomiting or diarrhea.? No fevers or chills.? Due to the recently found pulmonary nodules concerning for metastatic disease from his known colon cancer, he is to follow up with Oncology in the near future. Patient remained asymptomatic and euvolemic during his admissi
== END 2022-03-08 18:30 | disposition home health service (06) ==
LOC: ANHED 03-06 03:59 → ANH3MED 03-07 00:05
PROVIDERS: Internal Medicine; Admitting Provider Student in an Organized Health Care Education/Training Program; Emergency Provider Emergency Medicine; PCP Family Medicine; Visit Provider Student in an Organized Health Care Education/Training Program
DX: M62.50 Muscle wasting and atrophy, not elsewhere classified, unspecified site (principal); M79.605 Pain in left leg; I48.91 Unspecified atrial fibrillation; D64.9 Anemia, unspecified; I11.0 Hypertensive heart disease with heart failure; I50.9 Heart failure, unspecified; I45.10 Unspecified right bundle-branch block; E11.42 Type 2 diabetes mellitus with diabetic polyneuropathy; E88.81 Metabolic syndrome and other insulin resistance; E78.2 Mixed hyperlipidemia; Z89.422 Acquired absence of other left toe(s); Z79.51 Long term (current) use of inhaled steroids; Z79.01 Long term (current) use of anticoagulants; Z79.899 Other long term (current) drug therapy; Z83.3 Family history of diabetes mellitus; Z82.49 Family history of ischemic heart disease and other diseases of the circulatory system
CPT/HCPCS: 36415; 73560; 80053; 82306; 82607; 82746; 82948; 84443; 85025; 97110; 97161; 97165; 97530; 99285; A9270; G0378

== ENCOUNTER 2022-03-23 16:53 | Emergency (ER) | payer MEDICARE, MEDICAID, SELFPAY ==
[2022-03-23 17:51] VITALS: BP 114/73; PULSE 72; RESP 17; TEMP 36.5; O2SAT 100
[2022-03-23 19:00] VITALS: BP 104/60; PULSE 69; RESP 18; O2SAT 100
--- NOTE | 2022-03-23 19:27 | ED.WOUNDLAC ---
HPI - Wound/Laceration General Chief Complaint: Wound/Laceration Stated Complaint: L LEG WOUND Time Seen by Provider: 03/23/22 18:32 History of Present Illness HPI narrative: Patient is a 71-year-old male presenting for a wound culture. Patient was discharged home several weeks ago after being admitted for lower extremity cellulitis. States that he has home health come several times a week to help him with his wound care. Today, hi nurse was concerned that he may be developing an infection on the wound on his left lower leg. She was out of culture swabs so she recommended he come in to have the wound cultured. He states that he feels well. He denies any recent fevers or chills, nausea or vomiting, worsening pain in his legs. States that he just has some mild discomfort on the anterior aspect of his left calf. He denies chest pain, shortness of breath, abdominal pain, numbness, weakness. Related Data Home Medications Medication Instructions Recorded Confirmed fluticasone propionate 50 2 spray intranasal DAILY 02/05/19 03/16/22 mcg/actuation nasal spray,suspension (Allergy Relief (fluticasone)) loperamide 2 mg capsule (Imodium 2 mg PO Q4H PRN Diarrhea 09/20/19 03/16/22 A-D) cyanocobalamin (vitamin B-12) 500 mcg PO DAILY 12/10/19 03/16/22 1,000 mcg tablet (Vitamin B-12) ferrous sulfate 325 mg (65 mg 325 mg PO Q12H 12/10/19 03/16/22 iron) tablet diltiazem HCl 240 mg capsule,24 240 mg PO DAILY 06/03/20 03/16/22 hr,extended release loratadine 10 mg tablet (Claritin) 10 mg PO DAILY 10/08/20 03/16/22 multivitamin 1 tablet PO DAILY 10/08/20 03/16/22 linagliptin 5 mg tablet (Tradjenta) 5 mg PO QAM 12/21/21 03/16/22 rivaroxaban 10 mg tablet (Xarelto) 20 mg PO DAILY 02/24/22 03/16/22 allopurinol 300 mg tablet 300 mg PO DAILY 03/03/22 03/16/22 metoprolol tartrate 50 mg tablet 50 mg PO BID 03/03/22 03/16/22 simvastatin 10 mg tablet 10 mg PO DAILY 03/06/22 03/16/22 Allergies Allergy/AdvReac Type Severity Reaction Status Date / Time vancomycin Allergy Rash Verified 03/23/22 18:28 Review of Systems Review of Systems: All systems reviewed & are unremarkable except as noted in HPI and below PMFSH Past Medical History Medical History Adenocarcinoma of sigmoid colon (~07/28/18) Status post low anterior resection and chemotherapy. Atrial fibrillation Atrial fibrillation with rapid ventricular response Bilateral leg ulcer Cellulitis Chemotherapy induced diarrhea Chronic anemia Colon cancer Receiving chemotherapy treatment. Congestive heart failure Echocardiogram in January 2020 showed mildly enlarged left ventricle with mild reduction left ventricular function with an EF of 45 to 50% as well as significant biatrial dilatation and small amounts of atrial, mitral, and tricuspid regurgitation. 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 Malignant neoplasm of overlapping sites of colon Metabolic syndrome Metabolic syndrome X Mixed hyperlipidemia Neuropathy Osteomyelitis Status post amputation of left 2nd toe. Pancytopenia Peripheral vascular disease Right foot ulcer Shock Thrombocytopenia Toe osteomyelitis, left Type 2 diabetes mellitus Ulceration Unspecified atrial fibrillation Varicose veins of bilateral lower extremities with other complications Wound of skin Surgical History Surgical History History of amputation of lesser toe of left foot Treatment of osteomyelitis in 10/2013 & 01/2015. History of partial colectomy (~07/2017) Hand assisted laparoscopic low anterior resection with colorectal anastomosis for treatment of colon cancer. History of removal of pigmented skin lesion History
[2022-03-23] MEDS: DOXYCYCLINE HYCLATE 100 MG TABLET PO (22:10)
== END 2022-03-23 22:06 | disposition home or self-care (01) ==
PROVIDERS: Emergency Provider Emergency Medicine; PCP Family Medicine
DX: I87.2 Venous insufficiency (chronic) (peripheral) (principal); S81.802A Unspecified open wound, left lower leg, initial encounter; I48.91 Unspecified atrial fibrillation; I11.0 Hypertensive heart disease with heart failure; I50.9 Heart failure, unspecified; Z79.01 Long term (current) use of anticoagulants; E11.9 Type 2 diabetes mellitus without complications
CPT/HCPCS: 99283; A9270

== ENCOUNTER 2022-04-27 14:47 | Inpatient (IN) | payer MEDICARE, MEDICAID, SELFPAY ==
[2022-04-27] VITALS (33 sets, daily range): BP systolic 65–104; BP diastolic 33–73; PULSE 70–114; RESP 10–28; TEMP 36.3; O2SAT 97–100; BMI 32.4
--- NOTE | ~2022-04-27 | CT_ITS ---
EXAMINATION: CT abdomen pelvis wo/w con DATE: 05/10/2022 15:18 INDICATION: Gross hematuria. TECHNIQUE: Computed tomography (CT) of the abdomen and pelvis was performed without and with intraven ous contrast using a total of 130 mL Omnipaque-350 intravenous contrast with a double-bolus technique for simultaneous opacification of the renal parenchyma and renal collecting system. Automated exposu re control and iterative reconstruction technique were employed. The dose-length product was 2654.94 mGy-cm. COMPARISON: CT abdomen and pelvis 04/27/2022, 02/23/22 FINDINGS: The visualized portions of the lung bases demonstrate mild atelectasis. No pleural effusion. Calcific ations in the liver and spleen are consistent with old granulomatous disease. There is liver surface nodularity, consistent with cirrhosis. There is a 6.5 x 5.2 cm low-attenuation mass in the liver surr ounding the left and right hepatic lobes. There is a 2.5 cm cyst in the spleen. There are gallstones in the gallbladder, which is decompressed. Calcifications in the pancreas are consistent with chronic pancreatitis. The adrenal glands are normal. There are cysts in the kidneys measuring up to 5.1 cm o n the right. There is moderate bilateral hydronephrosis and hydroureter to level of the bladder. Ther e is bilateral urothelial thickening. There is gas and a calyx in right kidney. The bladder is decomp ressed by a Chua catheter. The prostate is mildly enlarged. There are bilateral inguinal hernias con taining fat. Stool distends the rectum. There is an anastomosis in the sigmoid colon. There is a larg e volume of stool in the colon. The appendix is not visualized. There are no pathologically enlarged lymph nodes. There is no free intraperitoneal fluid. There is severe lumbar spondylosis. IMPRESSION: 1. Bilateral hydronephrosis and hydroureter. Bilateral urothelial thickening, consistent with pyeliti s. 2. Liver mass, consistent with metastatic disease. 3. Cirrhosis of the liver. Reviewed, dictated and finalized at location A. NG INSPECTOR IMPRESSION: 1. Bilateral hydronephrosis and hydroureter. Bilateral urothelial thickening, c onsistent with pyelitis. 2. Liver mass, consistent with metastatic disease. 3. Cirrhosis of the liver.
--- NOTE | ~2022-04-27 | US_ITS ---
US renal BI 05/02/2022 11:32 Procedure: Realtime transabdominal ultrasound of the kidneys and bladder. Indication: Elevated creatinine Comparison: CT dated 02/23/2022 Findings: There are multiple bilateral renal cysts, largest on the right measures 5.7 cm in largest o n the left measures 4.2 cm. No solid renal masses are identified. No renal stones are seen. There is mild bilateral hydronephrosis. The right kidney measures 12.4 cm and left kidney measures 13 cm. Ther e is a Chua catheter in the bladder. Impression: 1: Mild bilateral hydronephrosis. 2: Multiple bilateral renal cysts. Reviewed, dictated and finalized at location A. D PLANT OPERATOR Impression: 1: Mild bilateral hydronephrosis. 2: Multiple bilateral renal cysts.
--- NOTE | ~2022-04-27 | US_ITS ---
US renal BI 05/11/2022 08:37 Procedure: Realtime transabdominal ultrasound of the kidneys and bladder. Indication: Acute renal insufficiency. Hydronephrosis. Comparison: CT dated 05/10/2022 Findings: Renal echotexture is normal bilaterally without contour deforming mass or renal calculus. T here are bilateral renal cysts, largest on the right measuring 5.4 cm. Left renal cyst measures 4 cm. There is mild left hydronephrosis. The right kidney measures 12 cm and left kidney measures 12.3 cm. There is a Chua catheter in the bladder. Impression: 1: Mild left hydronephrosis. 2: Bilateral renal cysts. Reviewed, dictated and finalized at location D. PARTS PROFESSIONAL Impression: 1: Mild left hydronephrosis. 2: Bilateral renal cysts.
--- NOTE | ~2022-04-27 | XR_ITS ---
EXAMINATION: XR chest 1V portable Exam Date/Time: 04/27/2022 16:00 UTILITIES ESTIMATOR AND DRAFTER HISTORY: weakness Comparison: 03/03/2022, CT chest abdomen and pelvis 02/23/2022. RESULT: Lines, tubes, and devices: Left chest port, terminating in the SVC. Lungs and pleura: Redemonstration of multiple pulmonary nodules and masses, possibly slightly smalle r than in the prior examinations. Cardiomediastinal silhouette: Stable. Other: No acute osseous or upper abdominal finding. IMPRESSION: No acute cardiopulmonary process. Pulmonary nodules/masses. Reviewed, dictated and finalized at location K. ITIES ESTIMATOR AND DRAFTER
--- NOTE | ~2022-04-27 | XR_ITS ---
XR chest 1V portable 05/13/2022 13:24 Indication: Cough Procedure: AP portable chest Comparison: Comparison to multiple prior studies sequentially, with oldest reviewed study dated 07/2021. Findings: Portacatheter tip in the SVC. Shallow inspiration. Heart size normal. No focal air space di sease, pulmonary edema, pleural effusion or suspected pneumothorax. Impression: 1: No acute cardiopulmonary disease. Reviewed, dictated and finalized at location L. WALL DRILL OPERATOR Impression: 1: No acute cardiopulmonary disease.
--- NOTE | ~2022-04-27 | XR_ITS ---
XR abdomen/kub 1V 05/10/2022 16:57 Indication: Gross hematuria Procedure: KUB Comparison: No prior studies for comparison. Findings: There is contrast in nondilated right renal pelvis and ureter. There are stones in the gall bladder overlying the right renal pelvis. Bowel pattern nonobstructive. There is minimal contrast in the left renal collecting system, although not the ureter, consistent with obstruction.. Mild-moderat e lumbar spondylosis. Impression: 1: Right hydroureteronephrosis to the pelvis. No obstructing stone is identified. 2: Delayed contrast opacification of the left renal pelvis and ureter, consistent with obstruction. 3: Cholelithiasis. Reviewed, dictated and finalized at location B. IGERATION SYSTEM INSTALLER Impression: 1: Right hydroureteronephrosis to the pelvis. No obstructing stone is identifie d. 2: Delayed contrast opacification of the left renal pelvis and ureter, consiste nt with obstruction. 3: Cholelithiasis.
--- NOTE | ~2022-04-27 | CT_ITS ---
EXAMINATION: CT abdomen pelvis wo con DATE: 04/27/2022 19:02 INDICATION: nonlocalized abdominal pain TECHNIQUE: Computed tomography (CT) of the abdomen and pelvis was performed without intravenous contr ast. Automated exposure control and iterative reconstruction technique were employed. The dose-length product was 1128.90 mGy-cm. COMPARISON: 02/23/2022. FINDINGS: Lower thorax: Aortic, mitral, and coronary artery calcifications. Cardiomegaly. Senescent/emphysemato us changes in the inferior lungs. Pulmonary nodules/masses, poorly visualized due to motion Liver: Granulomas calcifications. Nodular border as can be seen with cirrhosis. Similar large left lo be mass. Biliary/Gallbladder: Cholelithiasis. No bile duct dilation. Pancreas: No mass or duct dilation. Spleen: Simple splenic cyst. Adrenals:No mass. Kidneys: Simple bilateral renal cysts. Moderate bilateral hydronephrosis. No obstructing calculus collette ntified. GI tract: Air distended, mildly dilated cecum, with hyperdense intraluminal material or contrast pres ent at the ileocecal valve. Fluid-filled colon. Uncomplicated rectosigmoid anastomosis. Normal append ix. Mesentery/Peritoneum: No ascites, mass, or free air. Retroperitoneum: No mass. Pelvis: Bladder wall thickening and surrounding inflammatory change.. Soft Tissues: Uncomplicated bilateral fat-containing inguinal hernias Bones: No acute osseous finding. IMPRESSION: Moderate bilateral hydronephrosis with bladder and ureteral stranding concerning for cystitis with as cending infection. Mildly dilated cecum may represent chronic dilation, ileus or less likely early ob struction. Fluid-filled colon as can be seen with diarrheal illness. Chronic and incidental findings detailed above. Reviewed, dictated and finalized at location [facility] IMPRESSION: Moderate bilateral hydronephrosis with bladder and ureteral stranding concernin g for cystitis with ascending infection. Mildly dilated cecum may represent chr onic dilation, ileus or less likely early obstruction. Fluid-filled colon as ca n be seen with diarrheal illness. Chronic and incidental findings detailed abov e.
--- NOTE | 2022-04-27 14:54 | ECG_ITS ---
Measurements Intervals [place] Rate: 101 P: DC: 0 QRS: -51 QRSD: 121 T: 88 QT: 404 QTc: 525 Interpretive Statements ATRIAL FIBRILLATION WITH RAPID VENTRICULAR RESPONSE POSSIBLE RIGHT VENTRICULAR CONDUCTION DELAY [RSR (QR) IN V1/V2] LEFT ANTERIOR FASCICULAR BLOCK [QRS AXIS <= -45, QR IN I, RS IN II] POOR R-WAVE PROGRESSION COMPARED TO ECG 03/03/2022 13:58:51 NO SIGNIFICANT CHANGE Electronically Signed On 04-27-2022 16:29:48 SPECIALTY SALES CONSULTANT by Sue Stallings M.D.
[2022-04-27 15:56] LABS: Hematocrit 33.7 % (42.0-52.0); Hemoglobin 11.1 g/dL (14.0-18.0); Mean Corpuscular HGB Conc 32.9 g/dl (32-36); Mean Corpuscular Hemoglobin 30.9 pg (26-34); Mean Corpuscular Volume 93.9 fl (80-100); Mean Platelet Volume 9.9 fl (7.4-10.4); Platelet Count Result 326 k/mm3 (150-375); Red Blood Count 3.59 M/mm3 (4.6-6.20); Red Cell Distribution Width 16.7 % (11.5-14.5); White Blood Count 6.2 K/mm3 (4.5-10.0)
--- NOTE | 2022-04-27 15:59 | ED.GENADULT ---
HPI - General Adult General Chief complaint: Weakness Stated complaint: low BP, diarrhea Time Seen by Provider: 04/27/22 15:17 History of Present Illness HPI narrative: Patient is a 71-year-old male who presents ER with weakness. Patient has history of metastatic colon cancer. Reports he has been having diarrhea over the last 2 weeks. Cannot quantify how much. Patient is alert to self and place and is having difficulty giving any additional history. He reports last chemotherapy 2 weeks ago. It appears he sees oncology here. Related Data Home Medications Medication Instructions Recorded Confirmed fluticasone propionate 50 2 spray intranasal DAILY 02/05/19 04/16/22 mcg/actuation nasal spray,suspension (Allergy Relief (fluticasone)) loperamide 2 mg capsule (Imodium 2 mg PO Q4H PRN Diarrhea 09/20/19 04/16/22 A-D) cyanocobalamin (vitamin B-12) 500 mcg PO DAILY 12/10/19 04/16/22 1,000 mcg tablet (Vitamin B-12) ferrous sulfate 325 mg (65 mg 325 mg PO Q12H 12/10/19 04/16/22 iron) tablet diltiazem HCl 240 mg capsule,24 240 mg PO DAILY 06/03/20 04/16/22 hr,extended release loratadine 10 mg tablet (Claritin) 10 mg PO DAILY 10/08/20 04/16/22 multivitamin 1 tablet PO DAILY 10/08/20 04/16/22 linagliptin 5 mg tablet (Tradjenta) 5 mg PO QAM 12/21/21 04/16/22 rivaroxaban 10 mg tablet (Xarelto) 20 mg PO DAILY 02/24/22 04/16/22 allopurinol 300 mg tablet 300 mg PO DAILY 03/03/22 04/16/22 metoprolol tartrate 50 mg tablet 50 mg PO BID 03/03/22 04/16/22 simvastatin 10 mg tablet 10 mg PO DAILY 03/06/22 04/16/22 Allergies Allergy/AdvReac Type Severity Reaction Status Date / Time vancomycin Allergy Rash Verified 03/31/22 13:12 Review of Systems Review of Systems: ROS unobtainable: Yes unobtainable due to mental status PMFSH Past Medical History Medical History Adenocarcinoma of sigmoid colon (~05/17/19) Status post low anterior resection and chemotherapy. Atrial fibrillation Atrial fibrillation with rapid ventricular response Bilateral leg ulcer Cellulitis Chemotherapy induced diarrhea Chronic anemia Colon cancer Receiving chemotherapy treatment. Congestive heart failure Echocardiogram in January 2020 showed mildly enlarged left ventricle with mild reduction left ventricular function with an EF of 45 to 50% as well as significant biatrial dilatation and small amounts of atrial, mitral, and tricuspid regurgitation. 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 Malignant neoplasm of overlapping sites of colon Metabolic syndrome Metabolic syndrome X Mixed hyperlipidemia Neuropathy Osteomyelitis Status post amputation of left 2nd toe. Pancytopenia Peripheral vascular disease Right foot ulcer Shock Thrombocytopenia Toe osteomyelitis, left Type 2 diabetes mellitus Ulceration Unspecified atrial fibrillation Varicose veins of bilateral lower extremities with other complications Wound of skin Surgical History Surgical History History of amputation of lesser toe of left foot Treatment of osteomyelitis in 10/2013 & 01/2015. History of partial colectomy (~07/2017) Hand assisted laparoscopic low anterior resection with colorectal anastomosis for treatment of colon cancer. History of removal of pigmented skin lesion History of skin graft To poorly healing wound of the lower extremity. Port-A-Cath in place Family History Family History Mother Diabetes mellitus Father Cerebrovascular accident Other Family history of arthritis Family history of cardiovascular disease Family history of heart disease in male family member before age 55 Fam
[2022-04-27 16:05] LABS: Lactic Acid Reflex 1.9 mmol/L (0.7-2.0)
[2022-04-27 16:07] LABS: Alanine Aminotransferase 20 U/L (6-50); Albumin Level 3.2 g/dL (3.5-5.1); Alkaline Phosphatase 239 U/L (38-126); Anion Gap 14 mmol/L (8-16); Aspartate Amino Transferase 36 U/L (17-59); Bilirubin,Total 0.7 mg/dL (0.2-1.3); Blood Urea Nitrogen 86 mg/dL (9-20); Calcium 8.6 mg/dL (8.4-10.2); Carbon Dioxide 11 mmol/L (22-30); Chloride 102 mmol/L (98-107); Estimated CRCL calculation 12 ml/min; Estimated Glomerular Filt Rate 9; Glucose 133 mg/dL (65-110); Potassium 5.4 mmol/L (3.4-5.0); Sodium 127 mmol/L (137-145)
[2022-04-27 16:09] LABS: Anisocytosis 1+ (NORMAL); Band Neutrophils Percent 15 % (0-6); Lymphocytes Absolute Manual 0.93 K/mm3 (1.1-4.5); Monocytes Absolute Manual 1.05 K/mm3 (0.1-0.90); Monocytes Percent Manual 17 % (3-9); Neutrophils Absolute Manual 4.21 K/mm3 (1.3-6.7); Neutrophils Percent Manual 53 % (46-73); Platelet Estimate Adequate (Adequate); Schistocytes None Seen (NORMAL); Total Cells Counted 100
[2022-04-27 16:46] LABS: CRP 28.7 mg/dL (<1.0)
[2022-04-27 17:28] LABS: INR 4.4; Prothrombin Time 40.7 Seconds (11.1-14.7)
[2022-04-27] MEDS: NOREPINEPHRINE 8 MG/D5W 250 ML 8 MG/250 ML BAG 9.38 MG IV CONT (17:44)
[2022-04-27 17:49] LABS: Appearance Urine Turbid (Clear); Bilirubin Urine 2+ (Negative); Blood Urine 3+ (Negative); Glucose Urine UA Trace mg/dL (Negative); Ketones Urine 1+ mg/dL (Negative); Leukocyte Esterase Ur 3+ LEU/UL (Negative); Nitrate Urine Positive (Negative); Protein Urine 3+ mg/dL (Negative)
[2022-04-27 17:51] LABS: Add Urine Microscopic? YES; Color Urine Other (Yellow)
[2022-04-27 18:33] LABS: Influenza A QL RT-PCR Negative (Negative); Influenza B QL RT-PCR Negative (Negative); SARS-CoV-2 RNA PCR Negative
[2022-04-27 18:43] LABS: Squamous Epithelial Cell Urine Rare /hpf (Few); WBC Clumps Urine Present /HPF; WBC Urine >75 /hpf
[2022-04-27 18:44] LABS: Bacteria Urine 4+ /hpf
[2022-04-27] MEDS: metroNIDAZOLE 500 MG/ISO 100ML 500 MG/100 ML BAG 100 MG IVPB (20:14)
--- NOTE | 2022-04-27 20:25 | PM.IMHP ---
H&P: HPI History of Present Illness Date/Time: 04/27/22 20:25 Chief Complaint: 71 years old male with past medical history of colon cancer last chemotherapy was 2 weeks ago chronic diarrhea secondary to chemotherapy CHF varicose veins lower extremity diabetes mellitus AFib on anticoagulation presented to the hospital with generalized weakness worsening gradually associated with diarrhea multiple times a day for the past 2 weeks patient is poor historian at the ER patient was found to be hypertensive UA was abnormal patient was started on IV fluid empiric IV antibiotics Levophed will be admitted to ICU CT scan of the abdomen shows bilateral hydronephrosis and chronic diarrheal illness in the colon unlikely patient has obstruction or ileus urology was consulted nephrology was consulted Chua catheter was placed Review of Systems Review of Systems: Twelve system review was done negative except above PMFSH Past Medical History Medical History Adenocarcinoma of sigmoid colon (~07/28/18) Status post low anterior resection and chemotherapy. Atrial fibrillation Atrial fibrillation with rapid ventricular response Bilateral leg ulcer Cellulitis Chemotherapy induced diarrhea Chronic anemia Colon cancer Receiving chemotherapy treatment. Congestive heart failure Echocardiogram in January 2020 showed mildly enlarged left ventricle with mild reduction left ventricular function with an EF of 45 to 50% as well as significant biatrial dilatation and small amounts of atrial, mitral, and tricuspid regurgitation. 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 Malignant neoplasm of overlapping sites of colon Metabolic syndrome Metabolic syndrome X Mixed hyperlipidemia Neuropathy Osteomyelitis Status post amputation of left 2nd toe. Pancytopenia Peripheral vascular disease Right foot ulcer Shock Thrombocytopenia Toe osteomyelitis, left Type 2 diabetes mellitus Ulceration Unspecified atrial fibrillation Varicose veins of bilateral lower extremities with other complications Wound of skin Surgical History Surgical History History of amputation of lesser toe of left foot Treatment of osteomyelitis in 10/2013 & 01/2015. History of partial colectomy (~07/2017) Hand assisted laparoscopic low anterior resection with colorectal anastomosis for treatment of colon cancer. History of removal of pigmented skin lesion History of skin graft To poorly healing wound of the lower extremity. Port-A-Cath in place Family History Family History Mother Diabetes mellitus Father Cerebrovascular accident Other Family history of arthritis Family history of cardiovascular disease Family history of heart disease in male family member before age 55 Family history of thyroid disease Social History Social History Social History: The patient lives alone in his own apartment in [place]. He is single and never had children. 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 Lifelong nonsmoker. No alcohol or illicit substance use. Very active in his yazdanism. He is not certain who he would want to be his surrogate decision maker at this time and wishes to think about it. Full code. Caffeine- Smoking status: Never smoker Alcohol intake: never Substance use: never Substance use type: does not use Lack of Transportation: No Lack of Food: Never True Current Housing: I Do Not Have Housing Concerned About Future Housing: No Difficulty Paying Gas/Electric Bills: No Difficulty Payi
[2022-04-27] MEDS: SODIUM BICARBONATE 8.4% 150 MEQ in WATER, STERILE FOR INJECTION 950 ML 50 MEQ IV CONT (22:28)
--- NOTE | 2022-04-27 22:53 | ADMGEN ---
This patient, Donaldo Booker, was admitted to Intensive Care Unit-10. Patient/family oriented to hospital policies and general routines including ID bracelet, bed and alarms, visiting hours, pain management, procedures, bathroom and other care routines, personal items, smoking policy, room service/diet, and visiting hours. Information on how to activate the Rapid Response Team has been discussed. Patient/Family are encouraged to report perceived risks to care and to ask questions if they do not understand what they are told or what they should do.
[2022-04-27] MEDS: CENTRAL LINE FLUSH 10 ML IV PUSH (23:00)
[2022-04-27 23:08] LABS: Creatine Kinase 350 U/L (55-170)
[2022-04-27 23:55] LABS: Creatinine Urine 49.6 mg/dL
[2022-04-28] VITALS (25 sets, daily range): BP systolic 90–110; BP diastolic 46–70; PULSE 88–133; RESP 19–24; TEMP 36.3–37; O2SAT 18–100; BMI 32.5
[2022-04-28 00:05] LABS: Procalcitonin 1.9 ng/mL
[2022-04-28 00:08] LABS: Potassium Urine Random 10.9 meq/L
[2022-04-28 00:23] LABS: Glucose Point of Care 122 mg/dl (65-105)
[2022-04-28 00:24] LABS: Potassium 5.1 mmol/L (3.4-5.0)
[2022-04-28 01:27] LABS: Total Protein Urine Random 147 mg/dL
[2022-04-28 01:33] LABS: Sodium Urine Random 87 meq/L
[2022-04-28 04:42] LABS: Hematocrit 32.7 % (42.0-52.0); Hemoglobin 10.7 g/dL (14.0-18.0); Mean Corpuscular HGB Conc 32.7 g/dl (32-36); Mean Corpuscular Hemoglobin 31.1 pg (26-34); Mean Corpuscular Volume 95.1 fl (80-100); Mean Platelet Volume 9.6 fl (7.4-10.4); Platelet Count Result 316 k/mm3 (150-375); Red Blood Count 3.44 M/mm3 (4.6-6.20); Red Cell Distribution Width 16.8 % (11.5-14.5); White Blood Count 6.6 K/mm3 (4.5-10.0)
[2022-04-28 04:53] LABS: IFOB Positive Control Positive; Immunochemical Fecal Occult Bl Negative (N)
[2022-04-28 04:57] LABS: Alanine Aminotransferase 19 U/L (6-50); Alkaline Phosphatase 219 U/L (38-126); Anion Gap 17 mmol/L (8-16); Aspartate Amino Transferase 36 U/L (17-59); Bilirubin,Total 0.6 mg/dL (0.2-1.3); Blood Urea Nitrogen 76 mg/dL (9-20); Calcium 8.2 mg/dL (8.4-10.2); Carbon Dioxide 10 mmol/L (22-30); Chloride 105 mmol/L (98-107); Estimated CRCL calculation 16 ml/min; Estimated Glomerular Filt Rate 13; Glucose 108 mg/dL (65-110); Potassium 4.5 mmol/L (3.4-5.0); Sodium 132 mmol/L (137-145)
[2022-04-28 05:31] LABS: Basophils Absolute Manual 0.13 K/mm3 (0.0-0.1); Basophils Percent Manual 2 % (0-1); Blastocytes 1 %; Lymphocytes Absolute Manual 1.91 K/mm3 (1.1-4.5); Metamyelocytes Percent 4 %; Myelocytes Percent 1 %; Neutrophils Percent Manual 26 % (46-73); Plasma Cells 1; Platelet Estimate Adequate (Adequate); Total Cells Counted 100
[2022-04-28 05:33] LABS: Microcytosis 1+ (NORMAL)
[2022-04-28 05:34] LABS: Atypical Lymphocytes Present; Burr Cells 1+ (NORMAL); Crenated RBC 1+ (NORMAL); Schistocytes None Seen (NORMAL); Smudge Cells PRESENT
[2022-04-28 05:36] LABS: Band Neutrophils Percent 23 % (0-6); Neutrophils Absolute Manual 3.23 K/mm3 (1.3-6.7)
[2022-04-28 05:37] LABS: Monocytes Absolute Manual 0.85 K/mm3 (0.1-0.90); Monocytes Percent Manual 13 % (3-9)
[2022-04-28] MEDS: metroNIDAZOLE 500 MG/ISO 100ML 500 MG/100 ML BAG 100 MG IVPB ×3 (05:39→21:25)
[2022-04-28] MEDS: CENTRAL LINE FLUSH 10 ML IV PUSH ×3 (05:40→21:25)
[2022-04-28 08:16] LABS: Glucose Point of Care 94 mg/dl (65-105)
[2022-04-28] MEDS: allopurinoL 300 MG TABLET PO (08:20)
[2022-04-28] MEDS: METOPROLOL TARTRATE 50 MG TAB PO (08:20)
[2022-04-28] MEDS: NOREPINEPHRINE 8 MG/D5W 250 ML 8 MG/250 ML BAG 15 MG IV CONT (09:07)
[2022-04-28] MEDS: AMIODARONE 150 MG/D5W 100 ML 150 MG/100 ML BAG 600 MG IV CONT (09:08)
[2022-04-28] MEDS: SODIUM CHLORIDE 0.9% IV 1,000 ML 100 ML IV CONT ×2 (09:08→19:04)
[2022-04-28] MEDS: AMIODARONE 360 MG/D5W 200 ML 360 MG/200 ML BAG 33.33 MG IV CONT (09:09)
--- NOTE | 2022-04-28 10:44 | WPDCNINT ---
Assessment and Plan Assessment and plan (1) Septic shock: Code(s): A41.9 - Sepsis, unspecified organism; R65.21 - Severe sepsis with septic shock Status: Acute Assessment and Plan: Septic shock secondary to UTI UA suggestive of urinary tract infection Urine and blood cultures have been sent and are pending Procalcitonin was elevated although lactic acid level was normal Continue Levophed titration to maintain blood pressure Continue IV fluids (2) AGUILAR (acute kidney injury): Code(s): N17.9 - Acute kidney failure, unspecified Status: Acute Assessment and Plan: Multifactorial AGUILAR on CKD secondary to bilateral obstruction likely from BPH, rhabdomyolysis, dehydration, septic shock CT abdomen pelvis showed Moderate bilateral hydronephrosis with bladder and ureteral stranding concerning for cystitis with ascending infection. 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 Urine culture has been sent. Patient in the past has grown ESBL E coli from his urine hence I have changed his empiric antibiotics from cefepime to imipenem to provide adequate coverage CT abdomen pelvis Moderate bilateral hydronephrosis with bladder and ureteral stranding concerning for cystitis with ascending infection. Mildly dilated cecum may represent chronic dilation, ileus or less likely early obstruction. Fluid-filled colon as can be seen with diarrheal illness. Chronic and incidental findings detailed above. I suspect patient may have urethral obstruction from BPH leading to bilateral hydronephrosis. Chua has been placed (5) Acute hyperkalemia: Code(s): E87.5 - Hyperkalemia Status: Acute Assessment and Plan: Resolved with treatment Monitor (6) Colon cancer: Code(s): C18.9 - Malignant neoplasm of colon, unspecified Status: Chronic Assessment and Plan: Currently on chemotherapy with Irinotecan and Avastin (7) Atrial fibrillation: Qualifiers: Atrial fibrillation type: unspecified chronic Qualified Code(s): I48.20 - Chronic atrial fibrillation, unspecified Code(s): I48.91 - Unspecified atrial fibrillation Status: Chronic Assessment and Plan: Currently rate controlled Hold Cardizem and metoprolol due to shock (8) Coagulopathy: Code(s): D68.9 - Coagulation defect, unspecified Status: Acute Assessment and Plan: Patient on Xarelto at home currently appears to be coagulopathic secondary to DIC from sepsis Hold Xarelto at this time He may need invasive procedures Plan DVT prophylaxis -Xarelto on hold. SCDs Nutrition -diet ordered Code Status -patient is not or has any children. He states his friend assist him and his appointments. He does appear to have some understanding of his medical problems but does not appear to have full understanding of all the implications of his decision. He wishes to be Full Code at this time Total Critical Care Time - 45 minutes Due to a high probability of clinically significant, life threatening deterioration, the patient required my highest level of preparedness to intervene emergently and I personally spent this critical care time directly and personally managing the patient. This critical care time included obtaining a history; examining
[2022-04-28 12:35] LABS: Glucose Point of Care 157 mg/dl (65-105)
--- NOTE | 2022-04-28 12:49 | P.CONNP_ITS ---
Assessment and Plan Assessment and plan (1) AGUILAR (acute kidney injury): Code(s): N17.9 - Acute kidney failure, unspecified Status: Acute Assessment and Plan: * baseline creatinine normally runs ~ 1.0 - 1.3mg/dl * suspect multifactorial etiology: * obstructive uropathy * pre-renal factors * hemodynamic instability/hypotension * BPH * infection * diuretics + Entresto prior to admission * evaluation to date: * imaging with bilateral hydronephrosis * CPK mildly elevated (but not likely to affect kidney function) * urine electrolytes nonprerenal * kincaid catheter in place * agree with bicarb fluids for acidosis * remains at risk for [employer]/dialysis * follow repeat labs and UOP (2) Septic shock: Code(s): A41.9 - Sepsis, unspecified organism; R65.21 - Severe sepsis with septic shock Status: Acute Assessment and Plan: * presumably due to UTI * urine and blood cultures penidng * vasopressor support to maintain MAP/blood pressure * continue antibiotics (3) Acute hyperkalemia: Code(s): E87.5 - Hyperkalemia Status: Acute Assessment and Plan: * doing better with s/p medical management * likely due to AGUILAR, Entresto, and K+ supplements * follow trend (4) UTI (urinary tract infection): Code(s): N39.0 - Urinary tract infection, site not specified Status: Acute Assessment and Plan: * UA consistent with this * urine culture pending * on antibiotics * kincaid in place (5) Diarrhea: Code(s): R19.7 - Diarrhea, unspecified Status: Acute Assessment and Plan: * chronic issues and reportedly due to chemotherapy * stool studies pending * uses imodium as an outpatient * CT imaging of abd/pelvis noted * 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 History of Present Illness Reason for Consult Consult date: 04/28/22 Reason for consult: acute renal failure (on chronic kidney disease) Chief Complaint Chief complaint: Severe Sepsis, UTI, AGUILAR, AMS History of Present Illness Narrative: The patient is a 71-year-old male with a past medical history as outlined below presented to [facility] Emergency room with complaints of generalized weakness and ongoing diarrhea. The patient reports that he has been having issues and problems with diarrhea on and off for the last few weeks but then he also admits that he has a component of chronic diarrhea whenever he gets chemotherapy for treatment of his colon cancer. He is unable to give me a specific quantification of the diarrhea but has not noticed any melena, hematochezia, or abdominal pain associated with it. He reported no chest pain, shortness of breath, nausea, or vomiting either. Because of the a for mentioned diarrhea and his general health, he does report poor oral intake and because of this, he thinks that is why he has been having more problems / issues with general
--- NOTE | 2022-04-28 12:49 | PM.CNNEP ---
Assessment and Plan Assessment and plan (1) AGUILAR (acute kidney injury): Code(s): N17.9 - Acute kidney failure, unspecified Status: Acute Assessment and Plan: baseline creatinine normally runs ~ 1.0 - 1.3mg/dl suspect multifactorial etiology: obstructive uropathy pre-renal factors hemodynamic instability/hypotension BPH infection diuretics + Entresto prior to admission evaluation to date: imaging with bilateral hydronephrosis CPK mildly elevated (but not likely to affect kidney function) urine electrolytes nonprerenal kincaid catheter in place agree with bicarb fluids for acidosis remains at risk for [facility]/dialysis follow repeat labs and UOP (2) Septic shock: Code(s): A41.9 - Sepsis, unspecified organism; R65.21 - Severe sepsis with septic shock Status: Acute Assessment and Plan: presumably due to UTI urine and blood cultures penidng vasopressor support to maintain MAP/blood pressure continue antibiotics (3) Acute hyperkalemia: Code(s): E87.5 - Hyperkalemia Status: Acute Assessment and Plan: doing better with s/p medical management likely due to AGUILAR, Entresto, and K+ supplements follow trend (4) UTI (urinary tract infection): Code(s): N39.0 - Urinary tract infection, site not specified Status: Acute Assessment and Plan: UA consistent with this urine culture pending on antibiotics kincaid in place (5) Diarrhea: Code(s): R19.7 - Diarrhea, unspecified Status: Acute Assessment and Plan: chronic issues and reportedly due to chemotherapy stool studies pending uses imodium as an outpatient CT imaging of abd/pelvis noted 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 History of Present Illness Reason for Consult Consult date: 04/28/22 Reason for consult: acute renal failure (on chronic kidney disease) Chief Complaint Chief complaint: Severe Sepsis, UTI, AGUILAR, AMS History of Present Illness Narrative: The patient is a 71-year-old male with a past medical history as outlined below presented to [facility] Emergency room with complaints of generalized weakness and ongoing diarrhea. The patient reports that he has been having issues and problems with diarrhea on and off for the last few weeks but then he also admits that he has a component of chronic diarrhea whenever he gets chemotherapy for treatment of his colon cancer. He is unable to give me a specific quantification of the diarrhea but has not noticed any melena, hematochezia, or abdominal pain associated with it. He reported no chest pain, shortness of breath, nausea, or vomiting either. Because of the a for mentioned diarrhea and his general health, he does report poor oral intake and because of this, he thinks that is why he has been having more problems / issues with generalized weakness. No other subjective symptoms with regard to fevers, chills, cough, rhinorrhea, palpitations, dizziness, or lightheadedness. Given these constellation of symptoms, he presented to the emergency room for further assessment. Workup and evaluation in the emergency room demonstrated the patient be quite hypotensive necessitating aggressive IV fluid boluses prior to placement of a central line and initiation on IV vasopressor therapy. Routine blood test demonstrat
[2022-04-28] MEDS: HYDROCORTISONE SODIUM SUCCINATE 100 MG/2 ML VIAL IV PUSH ×2 (13:19→20:32)
[2022-04-28] MEDS: ALBUMIN HUMAN 5% 25 GM/500 ML BTL IV CONT (13:19)
[2022-04-28] MEDS: SODIUM BICARBONATE TAB 650 MG TABLET PO ×2 (13:19→16:35)
[2022-04-28] MEDS: AMIODARONE 360 MG/D5W 200 ML 360 MG/200 ML BAG 16.67 MG IV CONT (14:19)
--- NOTE | 2022-04-28 15:24 | WPDURCON ---
Assessment and Plan Assessment and plan (1) Septic shock: Code(s): A41.9 - Sepsis, unspecified organism; R65.21 - Severe sepsis with septic shock Status: Acute (2) AGUILAR (acute kidney injury): Code(s): N17.9 - Acute kidney failure, unspecified Status: Acute (3) UTI (urinary tract infection): Code(s): N39.0 - Urinary tract infection, site not specified Status: Acute (4) Hydronephrosis: Code(s): N13.30 - Unspecified hydronephrosis Status: Acute (5) Urinary retention: Code(s): R33.9 - Retention of urine, unspecified Status: Acute Plan 71-year-old man admitted with urinary tract infection causing Septic shock, acute renal failure, urinary retention, bilateral hydronephrosis secondary to retention -continue broad-spectrum antibiotics per ICU team. Tailor antibiotics per culture results -continue Chua catheter. -added finasteride 5mg daily for BPH. - Recommend addition of tamsulosin 0.4mg p.o. q.h.s. once patient's blood pressure has normalized -acute renal insufficiency appears multifactorial and is managed by Nephrology. The bilateral hydronephrosis likely secondary to urinary retention and I expect would resolve with Chua catheter drainage. Consider repeat renal ultrasound with Chua catheter in place to ensure resolution of hydronephrosis Urology Consult Note HPI Date Seen: 04/28/22 Requesting Physician: Master Garcia MD Primary Care Provider: Carli Caldwell DO Consult Narrative Narrative: Donaldo Booker is a 71 year old male with past medical history of stage IV colon cancer status post surgery in 2018 and since then on different chemotherapies. Patient provides limited history. Patient presented to [facility] with Septic shock, acute renal failure yesterday. In the emergency department patient Chua catheter placed to drain his urine. He was admitted to the ICU Urology was consulted PMFSH Past Medical History Medical History (Updated 04/28/22 @ 15:29 by Dominga Nye MD) Adenocarcinoma of sigmoid colon (~07/28/18) Status post low anterior resection and chemotherapy. Atrial fibrillation Atrial fibrillation with rapid ventricular response Bilateral leg ulcer Cellulitis Chemotherapy induced diarrhea Chronic anemia Colon cancer Receiving chemotherapy treatment. Congestive heart failure Echocardiogram in January 2020 showed mildly enlarged left ventricle with mild reduction left ventricular function with an EF of 45 to 50% as well as significant biatrial dilatation and small amounts of atrial, mitral, and tricuspid regurgitation. 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 Malignant neoplasm of overlapping sites of colon Metabolic syndrome Metabolic syndrome X Mixed hyperlipidemia Neuropathy Osteomyelitis Status post amputation of left 2nd toe. Pancytopenia Peripheral vascular disease Right foot ulcer Shock Thrombocytopenia Toe osteomyelitis, left Type 2 diabetes mellitus Ulceration Unspecified atrial fibrillation Urinary retention Varicose veins of bilateral lower extremities with other complications Wound of skin Surgical History Surgical History History of amputation of lesser toe of left foot Treatment of osteomyelitis in 10/2013 & 01/2015. History of partial colectomy (~07/2017) Hand assisted laparoscopic low anterior resection with colorectal anastomosis for treatment of colon cancer. History of removal of pigmented skin lesion History of skin graft To poorly healing wound of the lower extremity. Port-A-Cath in place Family History Family History Mother Diabetes mellitus Father Ce
[2022-04-28 16:43] LABS: Glucose Point of Care 182 mg/dl (65-105)
[2022-04-28] MEDS: ALBUMIN HUMAN 25% 25 GM/100 ML 100 ML IVPB ×2 (17:25→23:02)
[2022-04-28 21:13] LABS: Glucose Point of Care 260 mg/dl (65-105)
[2022-04-28] MEDS: INSULIN ASPART (*BKC) 100 UNITS/ML SUB-Q (21:24)
[2022-04-28 21:39] LABS: Toxigenic C. Diff NEGATIVE (NEGATIVE)
[2022-04-28] MEDS: NOREPINEPHRINE 8 MG/D5W 250 ML 8 MG/250 ML BAG 16.88 MG IV CONT (22:22)
[2022-04-29] VITALS (67 sets, daily range): BP systolic 74–122; BP diastolic 43–75; PULSE 81–109; RESP 17–25; TEMP 36.3–36.7; O2SAT 18–100
[2022-04-29] MEDS: AMIODARONE 360 MG/D5W 200 ML 360 MG/200 ML BAG 16.67 MG IV CONT ×2 (02:26→13:12)
[2022-04-29] MEDS: SODIUM CHLORIDE 0.9% IV 1,000 ML 100 ML IV CONT ×2 (03:37→18:23)
[2022-04-29] MEDS: metroNIDAZOLE 500 MG/ISO 100ML 500 MG/100 ML BAG 100 MG IVPB (05:10)
[2022-04-29] MEDS: ALBUMIN HUMAN 25% 25 GM/100 ML 100 ML IVPB ×4 (05:10→23:48)
[2022-04-29] MEDS: HYDROCORTISONE SODIUM SUCCINATE 100 MG/2 ML VIAL IV PUSH ×3 (05:10→20:32)
[2022-04-29] MEDS: CENTRAL LINE FLUSH 10 ML IV PUSH ×3 (05:11→20:33)
[2022-04-29 05:32] LABS: Basophils Absolute Auto 0.1 K/mm3 (0.0-0.1); Hematocrit 29.4 % (42.0-52.0); Hemoglobin 9.8 g/dL (14.0-18.0); Immature Granulocyte Absolute 0.28 K/mm3 (0.00-0.031); Immature Granulocyte Percent A 4.2 % (0-0.5); Lymphocytes Absolute Auto 0.67 K/mm3 (0.9-3.2); Mean Corpuscular HGB Conc 33.3 g/dl (32-36); Mean Corpuscular Hemoglobin 31.2 pg (26-34); Mean Corpuscular Volume 93.6 fl (80-100); Mean Platelet Volume 9.3 fl (7.4-10.4); Monocytes Absolute Auto 0.1 K/mm3 (0.1-0.6); Monocytes Percent Auto 1.8 % (2.6-8.5); Neutrophils Absolute Auto 5.6 K/mm3 (1.3-6.7); Platelet Count Result 281 k/mm3 (150-375); Red Blood Count 3.14 M/mm3 (4.6-6.20); Red Cell Distribution Width 16.4 % (11.5-14.5); White Blood Count 6.7 K/mm3 (4.5-10.0)
[2022-04-29 05:54] LABS: Alanine Aminotransferase 17 U/L (6-50); Albumin Level 3.3 g/dL (3.5-5.1); Alkaline Phosphatase 191 U/L (38-126); Anion Gap 8 mmol/L (8-16); Aspartate Amino Transferase 20 U/L (17-59); Bilirubin,Total 0.5 mg/dL (0.2-1.3); Blood Urea Nitrogen 56 mg/dL (9-20); Calcium 7.9 mg/dL (8.4-10.2); Carbon Dioxide 18 mmol/L (22-30); Chloride 105 mmol/L (98-107); Creatine Kinase 34 U/L (55-170); Estimated CRCL calculation 27 ml/min; Estimated Glomerular Filt Rate 22; Glucose 273 mg/dL (65-110); Magnesium 1.9 mg/dL (1.6-2.3); Phosphorus 3.8 mg/dL (2.5-4.5); Sodium 131 mmol/L (137-145)
[2022-04-29 08:03] LABS: Glucose Point of Care 225 mg/dl (65-105)
[2022-04-29] MEDS: INSULIN ASPART (*BKC) 100 UNITS/ML SUB-Q ×4 (08:43→20:29)
[2022-04-29] MEDS: FINASTERIDE 5 MG TABLET PO (08:43)
[2022-04-29] MEDS: allopurinoL 300 MG TABLET PO (08:43)
[2022-04-29] MEDS: SODIUM BICARBONATE TAB 650 MG TABLET PO ×2 (08:43→17:13)
--- NOTE | 2022-04-29 10:19 | WPDINTPN ---
Progress Note: A&P Assessment and Plan (1) Septic shock: Code(s): A41.9 - Sepsis, unspecified organism; R65.21 - Severe sepsis with septic shock Status: Acute Assessment and Plan: Septic shock secondary to UTI UA suggestive of urinary tract infection Urine cultures growing E coli blood cultures are pending Procalcitonin was elevated although lactic acid level was normal Continue Levophed titration to maintain blood pressure Continue IV fluids but decrease rate Continue albumin Continue hydrocortisone Continue imipenem (2) AGUILAR (acute kidney injury): Code(s): N17.9 - Acute kidney failure, unspecified Status: Acute Assessment and Plan: Multifactorial AGUILAR on CKD secondary to bilateral obstruction likely from BPH, rhabdomyolysis, dehydration, septic shock CT abdomen pelvis showed Moderate bilateral hydronephrosis with bladder and ureteral stranding concerning for cystitis with ascending infection. Continue IV fluids but decrease rate Chua has been placed. 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 of Imodium (4) UTI (urinary tract infection): Code(s): N39.0 - Urinary tract infection, site not specified Status: Acute Assessment and Plan: UA was consistent with UTI. Urine culture has been sent and is growing E coli. Patient in the past has grown ESBL E coli from his urine hence he is on empiric imipenem which will be continued CT abdomen pelvis Moderate bilateral hydronephrosis with bladder and ureteral stranding concerning for cystitis with ascending infection. Mildly dilated cecum may represent chronic dilation, ileus or less likely early obstruction. Fluid-filled colon as can be seen with diarrheal illness. Chronic and incidental findings detailed above. I suspect patient may have urethral obstruction from BPH leading to bilateral hydronephrosis. Chua has been placed Patient was evaluated by Urology and they recommend continuing Chua catheter on discharge and follow-up as an outpatient in the office for further management (5) Acute hyperkalemia: Code(s): E87.5 - Hyperkalemia Status: Acute Assessment and Plan: Resolved with treatment Monitor (6) Colon cancer: Code(s): C18.9 - Malignant neoplasm of colon, unspecified Status: Chronic Assessment and Plan: Currently on chemotherapy with Irinotecan and Avastin as an outpatient (7) Atrial fibrillation: Qualifiers: Atrial fibrillation type: unspecified chronic Qualified Code(s): I48.20 - Chronic atrial fibrillation, unspecified Code(s): I48.91 - Unspecified atrial fibrillation Status: Chronic Assessment and Plan: Currently rate controlled Hold Cardizem and metoprolol due to shock Currently on amiodarone infusion for rate control (8) Coagulopathy: Code(s): D68.9 - Coagulation defect, unspecified Status: Acute Assessment and Plan: Patient on Xarelto at home currently appears to be coagulopathic secondary to DIC from sepsis Hold Xarelto at this time He may need invasive procedures Recheck coags Plan DVT prophylaxis -Xarelto on hold. SCDs Nutrition -diet ordered Code Status -patient is not or has any children. He states his friend assist him and his appointments. He does appear to have some understanding
--- NOTE | 2022-04-29 11:34 | PM.PNNEP ---
Progress Note: A&P Assessment and Plan (1) AGUILAR (acute kidney injury): Code(s): N17.9 - Acute kidney failure, unspecified Status: Acute Assessment and Plan: improving baseline creatinine normally runs ~ 1.0 - 1.3mg/dl suspect multifactorial etiology: obstructive uropathy pre-renal factors hemodynamic instability/hypotension BPH infection diuretics + Entresto prior to admission evaluation to date: imaging with bilateral hydronephrosis CPK mildly elevated (but not likely to affect kidney function) urine electrolytes nonprerenal kincaid catheter in place started on oral bicarbonate follow repeat labs and UOP (2) Septic shock: Code(s): A41.9 - Sepsis, unspecified organism; R65.21 - Severe sepsis with septic shock Status: Acute Assessment and Plan: presumably due to UTI urine and blood cultures penidng vasopressor support to maintain MAP/blood pressure on stress dose steroids and IV albumin as well low dose IVFs continue antibiotics (3) Acute hyperkalemia: Code(s): E87.5 - Hyperkalemia Status: Acute Assessment and Plan: doing better with s/p medical management likely due to AGUILAR, Entresto, and K+ supplements follow trend (4) UTI (urinary tract infection): Code(s): N39.0 - Urinary tract infection, site not specified Status: Acute Assessment and Plan: UA consistent with this urine culture with E.coli on antibiotics kincaid in place (5) Diarrhea: Code(s): R19.7 - Diarrhea, unspecified Status: Acute Assessment and Plan: chronic issues and reportedly due to chemotherapy CT imaging of abd/pelvis noted C. diff toxin assay negative on immodium (6) Atrial fibrillation: Qualifiers: Atrial fibrillation type: unspecified chronic Qualified Code(s): I48.20 - Chronic atrial fibrillation, unspecified Code(s): I48.91 - Unspecified atrial fibrillation Status: Chronic Assessment and Plan: rate controlled holding cardizem and metoprolol due to shock (7) Coagulopathy: Code(s): D68.9 - Coagulation defect, unspecified Status: Acute Assessment and Plan: elevated INR at this time likely due to sepsis holding xarelto currently Will continue to follow. Subjective Date/time seen: 04/29/22 11:34 Seems to be doing reasonably well at the time of my visit; no acute complaints voiced; renal function appears to be steadily improving as noted by labs but is still requiring vasopressor therapy along with IVFs; good/reasonable urine output noted; no apparent distress noted. Exam Narrative: General: elderly male in NAD Heart: normal S1 and S2; no rub Lungs: clear to auscultation Abdomen: soft, nontender, nondistended, positive bowel sounds Extremities: no cyanosis or clubbing; no edema Skin: warm and dry Objective Data Vital Signs Vital Signs: Vital Signs Temp Pulse Resp BP Pulse Ox O2 Del Method 04/29/22 11:36 84 103/63 04/29/22 10:00 108 H 25 H 89/52 L 98 04/29/22 10:00 86 04/29/22 09:51 93 103/66 04/29/22 08:00 Room Air 04/29/22 08:00 87 04/29/22 08:50 97 105/67 04/29/22 07:53 98.0 F 94 19 97/63 L 100 04/29/22 06:19 82 96/57 L 04/29/22 06:00 81 04/29/22 06:00 98.1 F 82 18 96/47 L 96 04/29/22 04:23 95 91/59 L 04/29/22 04:00 82 04/29/22 04:00 98 F 82 21 H 90/49 L 98 04/29/22 04:00 92 20 98 Room Air 04/29/22 03:34 92 106/63 04/29/22 02:26 90 91/57 L 04/29/22 02:26 90 91/57 L 04/29/22 02:25 90 91/57 L 04/29/22 02:00 88 04/29/22 02:00 105 H 20 91/54 L 98 04/29/22 00:27 96 99/63 L 04/29/22 00:00 98.1 F 95 19 98/62 L 98 04/29/22 00:00 95 20 18 L Room Air 04/29/22 00:00 95 04/28/22 22:00 95 04/28/22 22:00 94 20 93/50 L 18 L
--- NOTE | 2022-04-29 11:34 | P.PNNP_ITS ---
Progress Note: A&P Assessment and Plan (1) AGUILAR (acute kidney injury): Code(s): N17.9 - Acute kidney failure, unspecified Status: Acute Assessment and Plan: * improving * baseline creatinine normally runs ~ 1.0 - 1.3mg/dl * suspect multifactorial etiology: * obstructive uropathy * pre-renal factors * hemodynamic instability/hypotension * BPH * infection * diuretics + Entresto prior to admission * evaluation to date: * imaging with bilateral hydronephrosis * CPK mildly elevated (but not likely to affect kidney function) * urine electrolytes nonprerenal * kincaid catheter in place * started on oral bicarbonate * follow repeat labs and UOP (2) Septic shock: Code(s): A41.9 - Sepsis, unspecified organism; R65.21 - Severe sepsis with septic shock Status: Acute Assessment and Plan: * presumably due to UTI * urine and blood cultures penidng * vasopressor support to maintain MAP/blood pressure * on stress dose steroids and IV albumin as well low dose IVFs * continue antibiotics (3) Acute hyperkalemia: Code(s): E87.5 - Hyperkalemia Status: Acute Assessment and Plan: * doing better with s/p medical management * likely due to AGUILAR, Entresto, and K+ supplements * follow trend (4) UTI (urinary tract infection): Code(s): N39.0 - Urinary tract infection, site not specified Status: Acute Assessment and Plan: * UA consistent with this * urine culture with E.coli * on antibiotics * kincaid in place (5) Diarrhea: Code(s): R19.7 - Diarrhea, unspecified Status: Acute Assessment and Plan: * chronic issues and reportedly due to chemotherapy * CT imaging of abd/pelvis noted * C. diff toxin assay negative * on immodium (6) Atrial fibrillation: Qualifiers: Atrial fibrillation type: unspecified chronic Qualified Code(s): I48.20 - Chronic atrial fibrillation, unspecified Code(s): I48.91 - Unspecified atrial fibrillation Status: Chronic Assessment and Plan: * rate controlled * holding cardizem and metoprolol due to shock (7) Coagulopathy: Code(s): D68.9 - Coagulation defect, unspecified Status: Acute Assessment and Plan: * elevated INR at this time * likely due to sepsis * holding xarelto currently Will continue to follow. Subjective Date/time seen: 04/29/22 11:34 Seems to be doing reasonably well at the time of my visit; no acute complaints voiced; renal function appears to be steadily improving as noted by labs but is still requiring vasopressor therapy along with IVFs; good/reasonable urine output noted; no apparent distress noted. Exam Narrative: General: elderly male in NAD Heart: normal S1 and S2; no rub Lungs: clear to auscultation Abdomen: soft, nontender, nondistended, positive bowel sounds Extremities: no cyanosis or clubbing; no edema Skin: warm and dry Objective Data Vital Signs Vital Signs: Vital Signs Temp Pulse Resp BP Pulse Ox O2 Del Method 04/29/22 11:36 84 103/63 04/29/22 10:00 108 H 25 H 89/52 L 98 04/29/22 10:00 86 04/29/22 09:51 93 103/66 04/29/22 08:00 Room Air 04/29/22 08:00 87 04/29/22 08:50 97 105/67 04/29/22 07:53 98.0 F 9
[2022-04-29 11:45] LABS: Glucose Point of Care 276 mg/dl (65-105)
--- NOTE | 2022-04-29 12:01 | WPDUROPN2 ---
Progress Note: A&P Assessment and Plan (1) Septic shock: Code(s): A41.9 - Sepsis, unspecified organism; R65.21 - Severe sepsis with septic shock Status: Acute (2) AGUILAR (acute kidney injury): Code(s): N17.9 - Acute kidney failure, unspecified Status: Acute (3) UTI (urinary tract infection): Code(s): N39.0 - Urinary tract infection, site not specified Status: Acute (4) Hydronephrosis: Code(s): N13.30 - Unspecified hydronephrosis Status: Acute (5) Urinary retention: Code(s): R33.9 - Retention of urine, unspecified Status: Acute Assessment and Plan: Continue Finasteride and resume Tamsulosin when BP improved. Renal function improving quickly with catheter palcement. Subjective Subjective Date/Time Seen: 04/29/22 12:01 Tolerating catheter well, urine minimally blood-tinged Review of Systems Cardiovascular: Cardiovascular: Denies chest pain, Denies lightheadedness, Denies palpitations and Denies dyspnea Respiratory: Respiratory: Denies dyspnea Gastrointestinal: Gastrointestinal: Denies diarrhea, Denies nausea and Denies vomiting Genitourinary: Genitourinary: Denies hematuria and Denies dysuria Endocrine: Endocrine: Denies palpitations Exam Const: General: no acute distress Resp: Effort & Inspection: normal respiratory effort GI: Inspection: non-distended GI Palp: No abdominal tenderness and No Guarding due to palpation present (GI) Auscultation: normal bowel sounds Objective Data Vital Signs Vital Signs: Vital Signs - 24 hr 04/28/22 14:00 04/28/22 14:00 04/28/22 14:19 Temperature Pulse Rate 102 H 88 94 Respiratory Rate 23 H Blood Pressure 95/49 L 97/52 L Pulse Oximetry 100 Oxygen Delivery 04/28/22 14:20 04/28/22 16:00 04/28/22 16:00 Temperature Pulse Rate 93 100 Respiratory Rate Blood Pressure 97/52 L Pulse Oximetry Oxygen Delivery Room Air 04/28/22 16:00 04/28/22 18:00 04/28/22 18:00 Temperature 98.6 F Pulse Rate 97 93 96 Respiratory Rate 22 H 23 H Blood Pressure 95/64 L 98/61 L Pulse Oximetry 99 99 Oxygen Delivery 04/28/22 19:50 04/28/22 20:00 04/28/22 20:00 Temperature 98.1 F Pulse Rate 102 H 101 H 101 H Respiratory Rate 20 20 Blood Pressure 102/58 L 101/63 Pulse Oximetry 99 99 Oxygen Delivery Room Air 04/28/22 20:00 04/28/22 20:10 04/28/22 22:22 Temperature Pulse Rate 94 95 92 Respiratory Rate Blood Pressure 101/63 110/70 Pulse Oximetry Oxygen Delivery 04/28/22 22:00 04/28/22 22:00 04/29/22 00:00 Temperature Pulse Rate 94 95 95 Respiratory Rate 20 Blood Pressure 93/50 L Pulse Oximetry 18 L Oxygen Delivery 04/29/22 00:00 04/29/22 00:00 04/29/22 00:27 Temperature 98.1 F Pulse Rate 95 95 96 Respiratory Rate 20 19 Blood Pressure 98/62 L 99/63 L Pulse Oximetry 18 L 98 Oxygen Delivery Room Air 04/29/22 02:00 04/29/22 02:00 04/29/22 02:25 Temperature Pulse Rate 105 H 88 90 Respiratory Rate 20 Blood Pressure 91/54 L 91/57 L Pulse Oximetry 98 Oxygen Delivery 04/29/22 02:26 04/29/22 02:26 04/29/22 03:34 Temperature Pulse Rate 90 90 92 Respiratory Rate Blood Pressure 91/57 L 91/57 L 106/63 Pulse Oximetry Oxygen Delivery 04/29/22 04:00 04/29/22 04:00 04/29/22 04:00 Temperature 98 F Pulse Rate 92 82 82 Respiratory Rate 20 21 H Blood Pressure 90/49 L Pulse Oximetry 98 98 Oxygen Delivery Room Air 04/29/22 04:23 04/29/22 06:00 04/29/22 06:00 Temperature 98.1 F Pulse Rate 95 82 81 Respiratory Rate 18 Blood Pressure 91/59 L 96/47 L Pulse Oximetry 96 Oxygen Delivery 04/29/22 06:19 04/29/22 07:53 04/29/22 08:50 Temperature 98.0 F Pulse Rate 82 94 97 Respiratory Rate 19 Blood Pressure 96/57 L 97/63 L 105/67 Pulse Oximetry 100 Oxygen Delivery 04/29/22 08:00 04/29/22 08:00 04/29/22 09:51 Temperature Pulse Rate 87 93 Re
[2022-04-29 17:05] LABS: Glucose Point of Care 244 mg/dl (65-105)
[2022-04-29] MEDS: NOREPINEPHRINE 8 MG/D5W 250 ML 8 MG/250 ML BAG 5.63 MG IV CONT (18:22)
--- NOTE | 2022-04-29 19:00 | PC.NURSE ---
Addendum entered by Cari Tracy RN 04/30/22 07:02: 04/29 not 04/30 Original Note: Normal saline drip already running at 50 mL/hr at start of shift 04/30 1900.
[2022-04-29 20:28] LABS: Glucose Point of Care 288 mg/dl (65-105)
[2022-04-30] VITALS (94 sets, daily range): BP systolic 83–117; BP diastolic 51–84; PULSE 76–119; RESP 13–26; TEMP 35.5–36.3; O2SAT 88–100
[2022-04-30] MEDS: AMIODARONE 360 MG/D5W 200 ML 360 MG/200 ML BAG 16.67 MG IV CONT (00:46)
[2022-04-30] MEDS: LOPERAMIDE HCL 2 MG CAPSULE PO (00:55)
[2022-04-30] MEDS: ALBUMIN HUMAN 25% 25 GM/100 ML 100 ML IVPB (05:29)
[2022-04-30] MEDS: CENTRAL LINE FLUSH 10 ML IV PUSH ×3 (05:42→21:08)
[2022-04-30] MEDS: HYDROCORTISONE SODIUM SUCCINATE 100 MG/2 ML VIAL IV PUSH ×3 (05:42→21:07)
[2022-04-30 05:54] LABS: Hematocrit 27.7 % (42.0-52.0); Hemoglobin 9.2 g/dL (14.0-18.0); Mean Corpuscular HGB Conc 33.2 g/dl (32-36); Mean Corpuscular Volume 93.3 fl (80-100); Mean Platelet Volume 9.7 fl (7.4-10.4); Platelet Count Result 270 k/mm3 (150-375); Red Blood Count 2.97 M/mm3 (4.6-6.20); Red Cell Distribution Width 16.6 % (11.5-14.5); White Blood Count 9.4 K/mm3 (4.5-10.0)
[2022-04-30 06:13] LABS: Alanine Aminotransferase 17 U/L (6-50); Albumin Level 3.6 g/dL (3.5-5.1); Alkaline Phosphatase 228 U/L (38-126); Anion Gap 8 mmol/L (8-16); Aspartate Amino Transferase 22 U/L (17-59); Bilirubin,Total 0.4 mg/dL (0.2-1.3); Blood Urea Nitrogen 56 mg/dL (9-20); Calcium 8.4 mg/dL (8.4-10.2); Carbon Dioxide 19 mmol/L (22-30); Chloride 112 mmol/L (98-107); Creatine Kinase < 20 U/L (55-170); Estimated CRCL calculation 31 ml/min; Estimated Glomerular Filt Rate 27; Glucose 221 mg/dL (65-110); Magnesium 1.9 mg/dL (1.6-2.3); Phosphorus 2.9 mg/dL (2.5-4.5); Potassium 3.9 mmol/L (3.4-5.0); Sodium 139 mmol/L (137-145)
[2022-04-30 06:15] LABS: INR 1.5; Prothrombin Time 17.6 Seconds (11.1-14.7)
[2022-04-30 06:16] LABS: Fibrinogen 562 mg/dl (215-510); Partial Thromboplastin Time 47.8 SECONDS (22.3-36.8)
[2022-04-30 07:16] LABS: Band Neutrophils Percent 3 % (0-6); Lymphocytes Absolute Manual 1.31 K/mm3 (1.1-4.5); Metamyelocytes Percent 3 %; Monocytes Absolute Manual 0.18 K/mm3 (0.1-0.90); Monocytes Percent Manual 2 % (3-9); Neutrophils Absolute Manual 7.61 K/mm3 (1.3-6.7); Neutrophils Percent Manual 78 % (46-73); Total Cells Counted 100
[2022-04-30 07:17] LABS: Anisocytosis 1+ (NORMAL); Platelet Estimate Adequate (Adequate); Schistocytes None Seen (NORMAL)
[2022-04-30] MEDS: INSULIN ASPART (*BKC) 100 UNITS/ML SUB-Q ×4 (08:30→21:11)
[2022-04-30] MEDS: INSULIN GLARGINE (*BKC) 100 UNITS/ML 15 UNITS SUB-Q (08:30)
[2022-04-30] MEDS: FINASTERIDE 5 MG TABLET PO (08:31)
[2022-04-30] MEDS: allopurinoL 300 MG TABLET PO (08:32)
[2022-04-30] MEDS: SODIUM BICARBONATE TAB 650 MG TABLET PO ×2 (08:32→16:55)
--- NOTE | 2022-04-30 08:36 | WPDINTPN ---
Progress Note: A&P Assessment and Plan (1) Septic shock: Code(s): A41.9 - Sepsis, unspecified organism; R65.21 - Severe sepsis with septic shock Status: Acute Assessment and Plan: Septic shock secondary to UTI Urine cultures growing E coli ESBL blood cultures are negative till now Procalcitonin was elevated although lactic acid level was normal Continue Levophed titration to maintain blood pressure. Currently off Will discontinue IV fluids, albumin Continue hydrocortisone Continue imipenem (2) AGUILAR (acute kidney injury): Code(s): N17.9 - Acute kidney failure, unspecified Status: Acute Assessment and Plan: Multifactorial AGUILAR on CKD secondary to bilateral obstruction likely from BPH, rhabdomyolysis, dehydration, septic shock CT abdomen pelvis showed Moderate bilateral hydronephrosis with bladder and ureteral stranding concerning for cystitis with ascending infection. Continue IV fluids but decrease rate Chua has been placed. Patient was evaluated by Urology and they recommend continuing Chua catheter on discharge and follow-up as an outpatient in the office for further management Continue p.o. 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 of Imodium (4) UTI (urinary tract infection): Code(s): N39.0 - Urinary tract infection, site not specified Status: Acute Assessment and Plan: UA was consistent with UTI. Urine culture has been sent and is growing E coli. Patient in the past has grown ESBL E coli from his urine hence he is on empiric imipenem which will be continued CT abdomen pelvis Moderate bilateral hydronephrosis with bladder and ureteral stranding concerning for cystitis with ascending infection. Mildly dilated cecum may represent chronic dilation, ileus or less likely early obstruction. Fluid-filled colon as can be seen with diarrheal illness. Chronic and incidental findings detailed above. I suspect patient may have urethral obstruction from BPH leading to bilateral hydronephrosis. Chua has been placed Patient was evaluated by Urology and they recommend continuing Chua catheter on discharge and follow-up as an outpatient in the office for further management (5) Acute hyperkalemia: Code(s): E87.5 - Hyperkalemia Status: Acute Assessment and Plan: Resolved with treatment Monitor (6) Colon cancer: Code(s): C18.9 - Malignant neoplasm of colon, unspecified Status: Chronic Assessment and Plan: Currently on chemotherapy with Irinotecan and Avastin as an outpatient (7) Atrial fibrillation: Qualifiers: Atrial fibrillation type: unspecified chronic Qualified Code(s): I48.20 - Chronic atrial fibrillation, unspecified Code(s): I48.91 - Unspecified atrial fibrillation Status: Chronic Assessment and Plan: Currently rate controlled Hold Cardizem and metoprolol due to shock Currently on amiodarone infusion for rate control Will discontinue IV amiodarone (8) Coagulopathy: Code(s): D68.9 - Coagulation defect, unspecified Status: Acute Assessment and Plan: Patient on Xarelto at home currently appears to be coagulopathic secondary to DIC from sepsis Xarelto was held on admission Repeat coags reviewed Resume Xarelto today Plan DVT prophylaxis -resume Xarelto. SCDs Nutrition -diet ordered PT OT Incentive spirometry Up in chair Code Status -full Code Total Critical Care Time - 30 minutes Due to a high probability of cl
[2022-04-30 08:47] LABS: Glucose Point of Care 223 mg/dl (65-105)
[2022-04-30 11:34] LABS: Glucose Point of Care 281 mg/dl (65-105)
[2022-04-30] MEDS: ACETAMINOPHEN 325 MG TABLET 650 MG PO (13:44)
--- NOTE | 2022-04-30 14:49 | P.PNNP_ITS ---
Progress Note: A&P Assessment and Plan (1) AGUILAR (acute kidney injury): Code(s): N17.9 - Acute kidney failure, unspecified Status: Acute Assessment and Plan: * AGUILAR. * baseline creatinine normally runs ~ 1.0 - 1.3mg/dl * suspect multifactorial etiology: * obstructive uropathy * pre-renal factors * hemodynamic instability/hypotension * BPH * infection * diuretics + Entresto prior to admission * evaluation to date: * imaging with bilateral hydronephrosis * CPK mildly elevated (but not likely to affect kidney function) * urine electrolytes nonprerenal * kincaid catheter in place * creatinine has been improving from above 6 to current level of 2.4. * started on oral bicarbonate. CO2 is better. * check rfp in am (2) Septic shock: Code(s): A41.9 - Sepsis, unspecified organism; R65.21 - Severe sepsis with septic shock Status: Acute Assessment and Plan: * presumably due to UTI * urine shows E Coli. * blood cx neg so far. * Off NE. * Up in a chair and bp is a little soft while upright. * on stress dose steroids and IV albumin as well low dose IVFs * on imipenem (3) Acute hyperkalemia: Code(s): E87.5 - Hyperkalemia Status: Acute Assessment and Plan: * resolved. (4) UTI (urinary tract infection): Code(s): N39.0 - Urinary tract infection, site not specified Status: Acute Assessment and Plan: * UA consistent with this * urine culture with E.coli * on atbs as above * kincaid in place (5) Diarrhea: Code(s): R19.7 - Diarrhea, unspecified Status: Acute Assessment and Plan: * chronic issues and reportedly due to chemotherapy * CT imaging of abd/pelvis noted * C. diff toxin assay negative * on immodium (6) Atrial fibrillation: Qualifiers: Atrial fibrillation type: unspecified chronic Qualified Code(s): I48.20 - Chronic atrial fibrillation, unspecified Code(s): I48.91 - Unspecified atrial fibrillation Status: Chronic Assessment and Plan: * rate controlled * holding cardizem and metoprolol due to shock (7) Coagulopathy: Code(s): D68.9 - Coagulation defect, unspecified Status: Acute Assessment and Plan: * elevated INR at this time * likely due to sepsis * holding xarelto currently Will continue to follow. Subjective Date/time seen: 04/30/22 14:49 Interval history: patient is up in a chair. no cp or sob. Exam Narrative: General: elderly male in NAD Heart: normal S1 and S2; no rub or gallop Lungs: clear to auscultation Abdomen: soft, nontender, nondistended, positive bowel sounds Extremities: no cyanosis or clubbing; no edema Skin: no rash Objective Data Vital Signs Vital Signs: Vital Signs - 24 hr 04/29/22 16:00 04/29/22 16:00 04/29/22 17:14 Temperature 97.4 F L Pulse Rate 94 98 Respiratory Rate 23 H Blood Pressure 94/56 L 122/56 L Pulse Oximetry 99 Oxygen Delivery Room Air Oxygen Flow Rate 04/29/22 16:00 04/29/22 17:47 04/29/22 17:48 Temperature Pulse Rate 93 98 100 Respiratory Rate Blood Pressure 113/65 85/53 L Pulse Oximetry Oxygen Delivery Oxygen Flow Rate
--- NOTE | 2022-04-30 14:49 | PM.PNNEP ---
Progress Note: A&P Assessment and Plan (1) AGUILAR (acute kidney injury): Code(s): N17.9 - Acute kidney failure, unspecified Status: Acute Assessment and Plan: AGUILAR. baseline creatinine normally runs ~ 1.0 - 1.3mg/dl suspect multifactorial etiology: obstructive uropathy pre-renal factors hemodynamic instability/hypotension BPH infection diuretics + Entresto prior to admission evaluation to date: imaging with bilateral hydronephrosis CPK mildly elevated (but not likely to affect kidney function) urine electrolytes nonprerenal kincaid catheter in place creatinine has been improving from above 6 to current level of 2.4. started on oral bicarbonate. CO2 is better. check rfp in am (2) Septic shock: Code(s): A41.9 - Sepsis, unspecified organism; R65.21 - Severe sepsis with septic shock Status: Acute Assessment and Plan: presumably due to UTI urine shows E Coli. blood cx neg so far. Off NE. Up in a chair and bp is a little soft while upright. on stress dose steroids and IV albumin as well low dose IVFs on imipenem (3) Acute hyperkalemia: Code(s): E87.5 - Hyperkalemia Status: Acute Assessment and Plan: resolved. (4) UTI (urinary tract infection): Code(s): N39.0 - Urinary tract infection, site not specified Status: Acute Assessment and Plan: UA consistent with this urine culture with E.coli on atbs as above kincaid in place (5) Diarrhea: Code(s): R19.7 - Diarrhea, unspecified Status: Acute Assessment and Plan: chronic issues and reportedly due to chemotherapy CT imaging of abd/pelvis noted C. diff toxin assay negative on immodium (6) Atrial fibrillation: Qualifiers: Atrial fibrillation type: unspecified chronic Qualified Code(s): I48.20 - Chronic atrial fibrillation, unspecified Code(s): I48.91 - Unspecified atrial fibrillation Status: Chronic Assessment and Plan: rate controlled holding cardizem and metoprolol due to shock (7) Coagulopathy: Code(s): D68.9 - Coagulation defect, unspecified Status: Acute Assessment and Plan: elevated INR at this time likely due to sepsis holding xarelto currently Will continue to follow. Subjective Date/time seen: 04/30/22 14:49 Interval history: patient is up in a chair. no cp or sob. Exam Narrative: General: elderly male in NAD Heart: normal S1 and S2; no rub or gallop Lungs: clear to auscultation Abdomen: soft, nontender, nondistended, positive bowel sounds Extremities: no cyanosis or clubbing; no edema Skin: no rash Objective Data Vital Signs Vital Signs: Vital Signs - 24 hr 04/29/22 16:00 04/29/22 16:00 04/29/22 17:14 Temperature 97.4 F L Pulse Rate 94 98 Respiratory Rate 23 H Blood Pressure 94/56 L 122/56 L Pulse Oximetry 99 Oxygen Delivery Room Air Oxygen Flow Rate 04/29/22 16:00 04/29/22 17:47 04/29/22 17:48 Temperature Pulse Rate 93 98 100 Respiratory Rate Blood Pressure 113/65 85/53 L Pulse Oximetry Oxygen Delivery Oxygen Flow Rate 04/29/22 18:22 04/29/22 18:00 04/29/22 18:00 Temperature Pulse Rate 100 94 109 H Respiratory Rate 23 H Blood Pressure 85/53 L 93/56 L Pulse Oximetry 100 Oxygen Delivery Oxygen Flow Rate 04/29/22 19:06 04/29/22 20:00 04/29/22 20:00 Temperature 97.4 F L Pulse Rate 95 95 95 Respiratory Rate 21 H Blood Pressure 88/43 L 93/55 L Pulse Oximetry 100 Oxygen Delivery Oxygen Flow Rate 04/29/22 20:00 04/29/22 22:00 04/29/22 22:00 Temperature Pulse Rate 105 H 105 H Respiratory Rate 22 H Blood Pressure 98/61 L Pulse Oximetry 100 Oxygen Delivery Room Air Oxygen Flow Rate 04/29/22 19:00 04/29/22 19:15 04/29/22 19:30 Temperature Pulse Rate 98 94 98 Respiratory Rate Blood Pressure 88/43 L 104/56 L
[2022-04-30 16:40] LABS: Glucose Point of Care 296 mg/dl (65-105)
[2022-04-30] MEDS: RIVAROXABAN 15 MG TABLET PO (16:55)
[2022-04-30 20:45] LABS: Osmolality, Urine 332 mOsm/kg (50-1200)
[2022-04-30 21:21] LABS: Glucose Point of Care 333 mg/dl (65-105)
[2022-05-01] VITALS (55 sets, daily range): BP systolic 97–122; BP diastolic 53–101; PULSE 76–147; RESP 9–26; TEMP 35.4–36; O2SAT 84–100
[2022-05-01] MEDS: CENTRAL LINE FLUSH 10 ML IV PUSH ×3 (05:30→21:44)
[2022-05-01] MEDS: HYDROCORTISONE SODIUM SUCCINATE 100 MG/2 ML VIAL IV PUSH (05:30)
[2022-05-01 05:31] LABS: Hematocrit 28.2 % (42.0-52.0); Hemoglobin 9.3 g/dL (14.0-18.0); Mean Corpuscular Hemoglobin 30.9 pg (26-34); Mean Corpuscular Volume 93.7 fl (80-100); Mean Platelet Volume 9.2 fl (7.4-10.4); Platelet Count Result 243 k/mm3 (150-375); Red Blood Count 3.01 M/mm3 (4.6-6.20); White Blood Count 11.5 K/mm3 (4.5-10.0)
[2022-05-01 05:44] LABS: Alanine Aminotransferase 23 U/L (6-50); Albumin Level 3.4 g/dL (3.5-5.1); Alkaline Phosphatase 252 U/L (38-126); Anion Gap 8 mmol/L (8-16); Aspartate Amino Transferase 41 U/L (17-59); Bilirubin,Total 0.4 mg/dL (0.2-1.3); Blood Urea Nitrogen 59 mg/dL (9-20); Calcium 8.9 mg/dL (8.4-10.2); Carbon Dioxide 19 mmol/L (22-30); Chloride 109 mmol/L (98-107); Creatine Kinase < 20 U/L (55-170); Estimated CRCL calculation 28 ml/min; Estimated Glomerular Filt Rate 28; Glucose 180 mg/dL (65-110); Magnesium 1.8 mg/dL (1.6-2.3); Phosphorus 2.8 mg/dL (2.5-4.5); Potassium 3.7 mmol/L (3.4-5.0); Sodium 136 mmol/L (137-145)
[2022-05-01 08:08] LABS: Glucose Point of Care 176 mg/dl (65-105)
[2022-05-01] MEDS: SODIUM BICARBONATE TAB 650 MG TABLET PO ×2 (08:17→16:59)
[2022-05-01] MEDS: ACETAMINOPHEN 325 MG TABLET 650 MG PO ×2 (08:17→16:57)
[2022-05-01] MEDS: allopurinoL 300 MG TABLET PO (08:17)
[2022-05-01] MEDS: FINASTERIDE 5 MG TABLET PO (08:17)
[2022-05-01] MEDS: INSULIN GLARGINE (*BKC) 100 UNITS/ML 15 UNITS SUB-Q (08:21)
[2022-05-01] MEDS: AMIODARONE 150 MG/D5W 100 ML 150 MG/100 ML BAG 600 MG IV CONT (09:43)
[2022-05-01] MEDS: AMIODARONE 360 MG/D5W 200 ML 360 MG/200 ML BAG 33.33 MG IV CONT (09:46)
--- NOTE | 2022-05-01 10:24 | PC.NURSE ---
0830: Patient urine has bobbi blood at this time. This is a change from yesterdays urine which had clots in the morning and then was tea colored by the evening with sediments. Dr Shah notified that Xarelto was restarted yesterday after being held for possible coagulopathy. Dr Shah asked me to hold the Xarelto which scheduled for 1700.
[2022-05-01 11:23] LABS: Glucose Point of Care 300 mg/dl (65-105)
[2022-05-01] MEDS: INSULIN ASPART (*BKC) 100 UNITS/ML SUB-Q ×2 (11:32→20:25)
--- NOTE | 2022-05-01 11:34 | P.PNNP_ITS ---
Progress Note: A&P Assessment and Plan (1) AGUILAR (acute kidney injury): Code(s): N17.9 - Acute kidney failure, unspecified Status: Acute Assessment and Plan: * AGUILAR. * baseline creatinine normally runs ~ 1.0 - 1.3mg/dl * suspect multifactorial etiology: * obstructive uropathy * pre-renal factors * hemodynamic instability/hypotension * BPH * infection * diuretics + Entresto prior to admission * evaluation to date: * imaging with bilateral hydronephrosis * CPK mildly elevated (but not likely to affect kidney function) * urine electrolytes nonprerenal * kincaid catheter in place * creatinine has been improving from above 6 to current level of 2.3 * started on oral bicarbonate. CO2 is better than on admission. * Check labs in the morning (2) Septic shock: Code(s): A41.9 - Sepsis, unspecified organism; R65.21 - Severe sepsis with septic shock Status: Acute Assessment and Plan: * presumably due to UTI * urine shows E Coli. * blood cx neg so far. * Off NE. * Up in a chair * on stress dose steroids. * on imipenem (3) Acute hyperkalemia: Code(s): E87.5 - Hyperkalemia Status: Acute Assessment and Plan: * resolved. (4) UTI (urinary tract infection): Code(s): N39.0 - Urinary tract infection, site not specified Status: Acute Assessment and Plan: * UA consistent with this * urine culture with E.coli * on imipenem * kincaid in place (5) Diarrhea: Code(s): R19.7 - Diarrhea, unspecified Status: Acute Assessment and Plan: * chronic issues and reportedly due to chemotherapy * CT imaging of abd/pelvis noted * C. diff toxin assay negative * on immodium (6) Atrial fibrillation: Qualifiers: Atrial fibrillation type: unspecified chronic Qualified Code(s): I48.20 - Chronic atrial fibrillation, unspecified Code(s): I48.91 - Unspecified atrial fibrillation Status: Chronic Assessment and Plan: * rate controlled * holding cardizem and metoprolol due to shock (7) Coagulopathy: Code(s): D68.9 - Coagulation defect, unspecified Status: Acute Assessment and Plan: * elevated INR at this time * likely due to sepsis * holding xarelto currently Will continue to follow. Subjective Date/time seen: 05/01/22 11:34 Interval history: patient is up in a chair. urine is now bloody. Xarelto was held. No shortness of breath or chest pain Exam Narrative: General: elderly male in NAD Heart: normal S1 and S2; no rub or gallop Lungs: clear bilaterally Abdomen: soft, nontender, nondistended, positive bowel sounds Extremities: no cyanosis or clubbing; no edema Skin: no rash or subcu nodules Objective Data Vital Signs Vital Signs: Vital Signs - 24 hr 04/30/22 12:00 04/30/22 14:00 04/30/22 14:00 Temperature 97.3 F L Pulse Rate 88 89 89 Respiratory Rate 16 Blood Pressure Pulse Oximetry 100 Oxygen Delivery 04/30/22 12:00 04/30/22 13:08 04/30/22 13:35 Temperature Pulse Rate 94 97 103 H Respiratory Rate 18 18 19 Blood Pressure Pulse Oximetry 100 100 99 Oxygen Delivery Room Air 04/30/22 13:46 04/30
--- NOTE | 2022-05-01 11:34 | PM.PNNEP ---
Progress Note: A&P Assessment and Plan (1) AGUILAR (acute kidney injury): Code(s): N17.9 - Acute kidney failure, unspecified Status: Acute Assessment and Plan: AGUILAR. baseline creatinine normally runs ~ 1.0 - 1.3mg/dl suspect multifactorial etiology: obstructive uropathy pre-renal factors hemodynamic instability/hypotension BPH infection diuretics + Entresto prior to admission evaluation to date: imaging with bilateral hydronephrosis CPK mildly elevated (but not likely to affect kidney function) urine electrolytes nonprerenal kincaid catheter in place creatinine has been improving from above 6 to current level of 2.3 started on oral bicarbonate. CO2 is better than on admission. Check labs in the morning (2) Septic shock: Code(s): A41.9 - Sepsis, unspecified organism; R65.21 - Severe sepsis with septic shock Status: Acute Assessment and Plan: presumably due to UTI urine shows E Coli. blood cx neg so far. Off NE. Up in a chair on stress dose steroids. on imipenem (3) Acute hyperkalemia: Code(s): E87.5 - Hyperkalemia Status: Acute Assessment and Plan: resolved. (4) UTI (urinary tract infection): Code(s): N39.0 - Urinary tract infection, site not specified Status: Acute Assessment and Plan: UA consistent with this urine culture with E.coli on imipenem kincaid in place (5) Diarrhea: Code(s): R19.7 - Diarrhea, unspecified Status: Acute Assessment and Plan: chronic issues and reportedly due to chemotherapy CT imaging of abd/pelvis noted C. diff toxin assay negative on immodium (6) Atrial fibrillation: Qualifiers: Atrial fibrillation type: unspecified chronic Qualified Code(s): I48.20 - Chronic atrial fibrillation, unspecified Code(s): I48.91 - Unspecified atrial fibrillation Status: Chronic Assessment and Plan: rate controlled holding cardizem and metoprolol due to shock (7) Coagulopathy: Code(s): D68.9 - Coagulation defect, unspecified Status: Acute Assessment and Plan: elevated INR at this time likely due to sepsis holding xarelto currently Will continue to follow. Subjective Date/time seen: 05/01/22 11:34 Interval history: patient is up in a chair. urine is now bloody. Xarelto was held. No shortness of breath or chest pain Exam Narrative: General: elderly male in NAD Heart: normal S1 and S2; no rub or gallop Lungs: clear bilaterally Abdomen: soft, nontender, nondistended, positive bowel sounds Extremities: no cyanosis or clubbing; no edema Skin: no rash or subcu nodules Objective Data Vital Signs Vital Signs: Vital Signs - 24 hr 04/30/22 12:00 04/30/22 14:00 04/30/22 14:00 Temperature 97.3 F L Pulse Rate 88 89 89 Respiratory Rate 16 Blood Pressure Pulse Oximetry 100 Oxygen Delivery 04/30/22 12:00 04/30/22 13:08 04/30/22 13:35 Temperature Pulse Rate 94 97 103 H Respiratory Rate 18 18 19 Blood Pressure Pulse Oximetry 100 100 99 Oxygen Delivery Room Air 04/30/22 13:46 04/30/22 13:48 04/30/22 14:00 Temperature Pulse Rate 116 H 99 111 H Respiratory Rate 15 21 H 18 Blood Pressure 102/59 L Pulse Oximetry 100 100 Oxygen Delivery 04/30/22 14:01 04/30/22 14:16 04/30/22 14:23 Temperature Pulse Rate 111 H 93 106 H Respiratory Rate 16 22 H 17 Blood Pressure 95/58 L 91/55 L Pulse Oximetry 100 100 100 Oxygen Delivery 04/30/22 14:31 04/30/22 14:32 04/30/22 14:46 Temperature Pulse Rate 95 100 91 Respiratory Rate 17 17 18 Blood Pressure 89/63 L 83/58 L Pulse Oximetry 100 100 Oxygen Delivery 04/30/22 14:47 04/30/22 15:02 04/30/22 16:00 Temperature Pulse Rate 94 94 94 Respiratory Rate 21 H 18 Blood Pressure Pulse Oximetry 100 100 Oxygen Delivery 04/30/22 15:15 04/30/22 15:16
--- NOTE | 2022-05-01 14:22 | WPDINTPN ---
Progress Note: A&P Assessment and Plan (1) Septic shock: Code(s): A41.9 - Sepsis, unspecified organism; R65.21 - Severe sepsis with septic shock Status: Acute Assessment and Plan: Septic shock secondary to UTI -04/27/2022 Urine cultures growing E coli ESBL -04/27/2022 blood cultures are negative till now -Procalcitonin was elevated although lactic acid level was normal -off Levophed -off IV fluids, tolerating p.o. diet and liquids -will wean stress dose steroids -Continue imipenem (2) AGUILAR (acute kidney injury): Code(s): N17.9 - Acute kidney failure, unspecified Status: Acute Assessment and Plan: Multifactorial AGUILAR on CKD secondary to bilateral obstruction likely from BPH, rhabdomyolysis, dehydration, septic shock CT abdomen pelvis showed Moderate bilateral hydronephrosis with bladder and ureteral stranding concerning for cystitis with ascending infection. Continue IV fluids but decrease rate Chua has been placed. Patient was evaluated by Urology and they recommend continuing Chua catheter on discharge and follow-up as an outpatient in the office for further management Continue p.o. 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 of Imodium (4) UTI (urinary tract infection): Code(s): N39.0 - Urinary tract infection, site not specified Status: Acute Assessment and Plan: UA was consistent with UTI. Urine culture has been sent and is growing ESBL E coli. Patient in the past has grown ESBL E coli from his urine hence he is on empiric imipenem which will be continued CT abdomen pelvis Moderate bilateral hydronephrosis with bladder and ureteral stranding concerning for cystitis with ascending infection. Mildly dilated cecum may represent chronic dilation, ileus or less likely early obstruction. Fluid-filled colon as can be seen with diarrheal illness. Chronic and incidental findings detailed above. I suspect patient may have urethral obstruction from BPH leading to bilateral hydronephrosis. Chua has been placed Patient was evaluated by Urology and they recommend continuing Chua catheter on discharge and follow-up as an outpatient in the office for further management (5) Acute hyperkalemia: Code(s): E87.5 - Hyperkalemia Status: Acute Assessment and Plan: Resolved with treatment Monitor (6) Colon cancer: Code(s): C18.9 - Malignant neoplasm of colon, unspecified Status: Chronic Assessment and Plan: Currently on chemotherapy with Irinotecan and Avastin as an outpatient (7) Atrial fibrillation: Qualifiers: Atrial fibrillation type: unspecified chronic Qualified Code(s): I48.20 - Chronic atrial fibrillation, unspecified Code(s): I48.91 - Unspecified atrial fibrillation Status: Chronic Assessment and Plan: Patient went to AFib RVR this morning with rates in the 130s to 150s 05/01: Started on amiodarone bolus and amiodarone infusion infusion -patient sees Dr. Ramírez, will consult Cardiology (8) Coagulopathy: Code(s): D68.9 - Coagulation defect, unspecified Status: Acute Assessment and Plan: Patient on Xarelto at home currently appears to be coagulopathic secondary to DIC from sepsis Xarelto was held on admission Repeat coags reviewed Continue to hold Xarelto as patient has hematuria later this morning on 05/01 Plan DVT prophylaxis -SCDs Nutrition -tolerating p.o. diet PT/OT Incent
[2022-05-01] MEDS: AMIODARONE 360 MG/D5W 200 ML 360 MG/200 ML BAG 16.67 MG IV CONT (16:00)
[2022-05-01 16:49] LABS: Glucose Point of Care 423 mg/dl (65-105)
[2022-05-01] MEDS: HYDROCORTISONE SODIUM SUCCINATE 100 MG/2 ML VIAL 50 MG IV PUSH (16:59)
[2022-05-01] MEDS: INSULIN ASPART (*BKC) 100 UNITS/ML 10 UNITS SUB-Q (17:00)
[2022-05-01] MEDS: INSULIN GLARGINE (*BKC) 100 UNITS/ML 20 UNITS SUB-Q (17:01)
[2022-05-01 19:33] LABS: Glucose Point of Care 403 mg/dl (65-105)
[2022-05-01 20:16] LABS: Glucose Point of Care 394 mg/dl (65-105)
[2022-05-02] VITALS (61 sets, daily range): BP systolic 81–130; BP diastolic 57–87; PULSE 78–141; RESP 8–26; TEMP 35.7–36.4; O2SAT 75–100
[2022-05-02] MEDS: AMIODARONE 360 MG/D5W 200 ML 360 MG/200 ML BAG 16.67 MG IV CONT (02:29)
[2022-05-02 04:59] LABS: Basophils Percent Auto 0.1 % (0.2-1.2); Eosinophils Percent Auto 0.1 % (0-4.4); Hematocrit 28.9 % (42.0-52.0); Hemoglobin 9.3 g/dL (14.0-18.0); Immature Granulocyte Absolute 2.56 K/mm3 (0.00-0.031); Immature Granulocyte Percent A 15.6 % (0-0.5); Lymphocytes Percent Auto 14.6 % (18.3-44.2); Mean Corpuscular HGB Conc 32.2 g/dl (32-36); Mean Corpuscular Hemoglobin 31.1 pg (26-34); Mean Corpuscular Volume 96.7 fl (80-100); Mean Platelet Volume 9.4 fl (7.4-10.4); Monocytes Absolute Auto 1.1 K/mm3 (0.1-0.6); Monocytes Percent Auto 6.5 % (2.6-8.5); Neutrophils Absolute Auto 10.4 K/mm3 (1.3-6.7); Neutrophils Percent Auto 63.1 % (45.5-73.1); Nucleated Red Blood Cells Absolute Auto 0.1 K/mm3 (0.0-0.012); Nucleated Red Blood Cells Perc 0.4 % (0.0-0.2); Platelet Count Result 252 k/mm3 (150-375); Red Blood Count 2.99 M/mm3 (4.6-6.20); Red Cell Distribution Width 17.2 % (11.5-14.5); White Blood Count 16.4 K/mm3 (4.5-10.0)
[2022-05-02] MEDS: CENTRAL LINE FLUSH 10 ML IV PUSH ×3 (04:59→21:33)
[2022-05-02] MEDS: HYDROCORTISONE SODIUM SUCCINATE 100 MG/2 ML VIAL 50 MG IV PUSH (05:00)
[2022-05-02 05:19] LABS: Alanine Aminotransferase 29 U/L (6-50); Alkaline Phosphatase 279 U/L (38-126); Anion Gap 7 mmol/L (8-16); Aspartate Amino Transferase 51 U/L (17-59); Bilirubin,Total 0.4 mg/dL (0.2-1.3); Blood Urea Nitrogen 72 mg/dL (9-20); Calcium 8.4 mg/dL (8.4-10.2); Carbon Dioxide 20 mmol/L (22-30); Chloride 110 mmol/L (98-107); Estimated CRCL calculation 32 ml/min; Estimated Glomerular Filt Rate 28; Glucose 205 mg/dL (65-110); Magnesium 1.6 mg/dL (1.6-2.3); Phosphorus 2.4 mg/dL (2.5-4.5); Potassium 3.7 mmol/L (3.4-5.0); Sodium 137 mmol/L (137-145)
[2022-05-02 05:20] LABS: Lactic Acid Reflex 1.1 mmol/L (0.7-2.0)
[2022-05-02 07:39] LABS: Glucose Point of Care 199 mg/dl (65-105)
[2022-05-02] MEDS: POTASSIUM CHLORIDE 20 MEQ TABLET 40 MEQ PO (08:17)
[2022-05-02] MEDS: MAGNESIUM SULF 2 GM/WATER 50ML 2 GM/50 ML BAG IVPB (08:22)
[2022-05-02] MEDS: ACETAMINOPHEN 325 MG TABLET 650 MG PO (08:23)
[2022-05-02] MEDS: allopurinoL 300 MG TABLET PO (08:24)
[2022-05-02] MEDS: FINASTERIDE 5 MG TABLET PO (08:24)
[2022-05-02] MEDS: SODIUM BICARBONATE TAB 650 MG TABLET PO ×2 (08:24→17:06)
[2022-05-02] MEDS: INSULIN GLARGINE (*BKC) 100 UNITS/ML 20 UNITS SUB-Q (08:26)
--- NOTE | 2022-05-02 09:26 | PM.CNCAR ---
Assessment and Plan Assessment and plan (1) Atrial fibrillation with rapid ventricular response: Code(s): I48.91 - Unspecified atrial fibrillation Status: Acute Assessment and Plan: continue IV amiodarone for now. When able resume oral diltiazem and metoprolol as BP permits. Would prefer to resume these medications initially and is able resume additional cardiac medications as BP and renal function permits. Off systemic anticoagulation due to hematuria. Follow H&H closely. Chua catheter in place due to bilateral hydronephrosis and bleeding. Resume Xarelto at appropriate renal dosing when safe. (2) Severe sepsis: Code(s): A41.9 - Sepsis, unspecified organism; R65.20 - Severe sepsis without septic shock Status: Acute Assessment and Plan: Improving, off pressors, BP stable. Caution with resuming medications to ensure hemodynamic stability. (3) Cardiomyopathy: Code(s): I42.9 - Cardiomyopathy, unspecified Status: Acute Assessment and Plan: history mild LV systolic dysfunction EF 45-50%. Will need to assess tolerance and appropriateness of resuming cardiovascular supportive medications. Recommendations to follow. Will need to hold off for now. (4) AGUILAR (acute kidney injury): Code(s): N17.9 - Acute kidney failure, unspecified Status: Acute Assessment and Plan: Improving with IV fluid resuscitation not at prior baseline. May not be appropriate to resume Entresto unless renal function continues to improve significantly. History of Present Illness History of Present Illness Consult date/time: Date of Service: 05/02/22 09:26 Requesting physician: Lauri Shah MD Consult reason: atrial fibrillation Reason For Visit: Severe Sepsis, UTI, AGUILAR, AMS Narrative: patient is a complicated 71-year-old male with past medical history significant for stage IV colon cancer, longstanding persistent atrial fibrillation on anticoagulation, history of heart failure with mildly reduced EF, diabetes mellitus, thrombocytopenia, who is transferred [facility] ICU for weakness and worsening diarrhea. Diarrhea thought to be secondary to chemotherapy but he also admitted to poor oral intake and feeling weaker. In the emergency department h was hypotensive with acute renal failure Creatinine of 6.2 initially now 2.3 after being started on IV fluids and pressors secondary to E coli UTI. stress dose steroids have been discontinued he remains on imipenem. Patient had moderate bilateral hydronephrosis now with Chua catheter. his renal function has improved he was weaned off Levophed. He developed atrial fibrillation with rapid ventricular response necessitating initiation of IV amiodarone infusion with better heart rate control with intermittent RVR episodes. Patient has a history of RVR particular the acute illness refractory but generally controlled on oral diltiazem and metoprolol. Patient denies chest pain, shortness of breath or palpitations at this time. States she is feeling better although somewhat weak. Appetite improving. He inquired about his medications was informed that been held secondary to his low blood pressures earlier this hospitalization. Xarelto has been on hold secondary to coagulopathy and ongoing hematuria. Patient has remained afebrile. No noted bright red blood per rectum or melena. No hemoptysis. Diarrhea improving. Review of Systems Review of Systems: Remainder of the review of systems is otherwise negative aside from that noted in the HPI. All systems reviewed & are unremarkable except as noted in HPI and below Constitutional: Constitutional: Reports as per HPI and Reports no additional constitutional complaints Eyes: Eyes: Reports as per HPI and Reports no additional eye complaints ENT: Reports system reviewed and no additional complaints, except as documented and Reports as per HPI Cardiovascular: Cardiovascular: Reports as
--- NOTE | 2022-05-02 11:12 | P.PNNP_ITS ---
Progress Note: A&P Assessment and Plan (1) AGUILAR (acute kidney injury): Code(s): N17.9 - Acute kidney failure, unspecified Status: Acute Assessment and Plan: * AGUILAR. * baseline creatinine normally runs ~ 1.0 - 1.3mg/dl * suspect multifactorial etiology: * obstructive uropathy * pre-renal factors * hemodynamic instability/hypotension * BPH * infection * diuretics + Entresto prior to admission * evaluation to date: * imaging with bilateral hydronephrosis * CPK mildly elevated (but not likely to affect kidney function) * urine electrolytes nonprerenal * kincaid catheter in place * creatinine had been improving but seems to have stalled at around 2.8. * Most likely he has a combination of causes of his renal failure. Obstruction certainly was an issue which improved with the Kincaid catheter. Now his creatinine seems to have stabilized. He probably had underlying ATN which will take longer to improve. However just in case there is something else going on will check a renal ultrasound to be sure there is no obstruction in 1 kidney or the other from the bleeding. * started on oral bicarbonate. CO2 is better than on admission. * Check labs in the morning (2) Septic shock: Code(s): A41.9 - Sepsis, unspecified organism; R65.21 - Severe sepsis with septic shock Status: Acute Assessment and Plan: * presumably due to UTI * urine shows E Coli. * blood cx neg so far. * Weaning steroids. * On imipenem (3) Acute hyperkalemia: Code(s): E87.5 - Hyperkalemia Status: Acute Assessment and Plan: * resolved. (4) UTI (urinary tract infection): Code(s): N39.0 - Urinary tract infection, site not specified Status: Acute Assessment and Plan: * UA consistent with this * urine culture with E.coli * on imipenem * kincaid in place (5) Diarrhea: Code(s): R19.7 - Diarrhea, unspecified Status: Acute Assessment and Plan: * chronic issues and reportedly due to chemotherapy * CT imaging of abd/pelvis noted * C. diff toxin assay negative * on immodium (6) Atrial fibrillation: Qualifiers: Atrial fibrillation type: unspecified chronic Qualified Code(s): I48.20 - Chronic atrial fibrillation, unspecified Code(s): I48.91 - Unspecified atrial fibrillation Status: Chronic Assessment and Plan: * * holding cardizem and metoprolol due to shock * blood pressure still a little bit too low to restart these meds. * Pulse is running in the 80s (7) Coagulopathy: Code(s): D68.9 - Coagulation defect, unspecified Status: Acute Assessment and Plan: * xarelto on hold due to hematuria Subjective Date/time seen: 05/02/22 11:12 Interval history: patient is up in a chair. he feels fine urine less bloody. Exam Narrative: General: elderly male in NAD Heart: normal S1 and S2; irregular rhythm no rub or gallop Lungs: clear to auscultation Abdomen: soft, nontender, nondistended, positive bowel sounds Extremities: no cyanosis or clubbing; no edema Skin: no rash or subcu nodules Objective Data Vital Signs Vital Signs: Vital Signs - 24 hr 05/01/22 16:00 05/01/22 12:00 05/01/22 14:00 Temperature Pulse Rate 120 H 119 H 123 H Respiratory Rate Blood Pressure 102/82 P
--- NOTE | 2022-05-02 11:12 | PM.PNNEP ---
Progress Note: A&P Assessment and Plan (1) AGUILAR (acute kidney injury): Code(s): N17.9 - Acute kidney failure, unspecified Status: Acute Assessment and Plan: AGUILAR. baseline creatinine normally runs ~ 1.0 - 1.3mg/dl suspect multifactorial etiology: obstructive uropathy pre-renal factors hemodynamic instability/hypotension BPH infection diuretics + Entresto prior to admission evaluation to date: imaging with bilateral hydronephrosis CPK mildly elevated (but not likely to affect kidney function) urine electrolytes nonprerenal kincaid catheter in place creatinine had been improving but seems to have stalled at around 2.8. Most likely he has a combination of causes of his renal failure. Obstruction certainly was an issue which improved with the Kincaid catheter. Now his creatinine seems to have stabilized. He probably had underlying ATN which will take longer to improve. However just in case there is something else going on will check a renal ultrasound to be sure there is no obstruction in 1 kidney or the other from the bleeding. started on oral bicarbonate. CO2 is better than on admission. Check labs in the morning (2) Septic shock: Code(s): A41.9 - Sepsis, unspecified organism; R65.21 - Severe sepsis with septic shock Status: Acute Assessment and Plan: presumably due to UTI urine shows E Coli. blood cx neg so far. Weaning steroids. On imipenem (3) Acute hyperkalemia: Code(s): E87.5 - Hyperkalemia Status: Acute Assessment and Plan: resolved. (4) UTI (urinary tract infection): Code(s): N39.0 - Urinary tract infection, site not specified Status: Acute Assessment and Plan: UA consistent with this urine culture with E.coli on imipenem kincaid in place (5) Diarrhea: Code(s): R19.7 - Diarrhea, unspecified Status: Acute Assessment and Plan: chronic issues and reportedly due to chemotherapy CT imaging of abd/pelvis noted C. diff toxin assay negative on immodium (6) Atrial fibrillation: Qualifiers: Atrial fibrillation type: unspecified chronic Qualified Code(s): I48.20 - Chronic atrial fibrillation, unspecified Code(s): I48.91 - Unspecified atrial fibrillation Status: Chronic Assessment and Plan: holding cardizem and metoprolol due to shock blood pressure still a little bit too low to restart these meds. Pulse is running in the 80s (7) Coagulopathy: Code(s): D68.9 - Coagulation defect, unspecified Status: Acute Assessment and Plan: xarelto on hold due to hematuria Subjective Date/time seen: 05/02/22 11:12 Interval history: patient is up in a chair. he feels fine urine less bloody. Exam Narrative: General: elderly male in NAD Heart: normal S1 and S2; irregular rhythm no rub or gallop Lungs: clear to auscultation Abdomen: soft, nontender, nondistended, positive bowel sounds Extremities: no cyanosis or clubbing; no edema Skin: no rash or subcu nodules Objective Data Vital Signs Vital Signs: Vital Signs - 24 hr 05/01/22 16:00 05/01/22 12:00 05/01/22 14:00 Temperature Pulse Rate 120 H 119 H 123 H Respiratory Rate Blood Pressure 102/82 Pulse Oximetry Oxygen Delivery 05/01/22 16:00 05/01/22 12:00 05/01/22 16:00 Temperature Pulse Rate 110 H 110 H 110 H Respiratory Rate 18 16 Blood Pressure Pulse Oximetry 100 100 Oxygen Delivery Room Air Room Air 05/01/22 12:14 05/01/22 12:16 05/01/22 12:30 Temperature Pulse Rate 127 H 123 H 110 H Respiratory Rate 14 18 17 Blood Pressure 111/64 Pulse Oximetry 100 Oxygen Delivery 05/01/22 12:31 05/01/22 12:45 05/01/22 13:00 Temperature Pulse Rate 108 H 118 H 114 H Respiratory Rate 18 17 19 Blood Pressure 109/63 Pulse Oximetry 100 Oxygen Delivery 05/01/22 13:01 05/01/22
[2022-05-02 11:36] LABS: Glucose Point of Care 338 mg/dl (65-105)
[2022-05-02] MEDS: INSULIN ASPART (*BKC) 100 UNITS/ML SUB-Q ×3 (11:47→21:32)
--- NOTE | 2022-05-02 12:25 | WPDINTPN ---
Progress Note: A&P Assessment and Plan (1) Septic shock: Code(s): A41.9 - Sepsis, unspecified organism; R65.21 - Severe sepsis with septic shock Status: Acute Assessment and Plan: Septic shock secondary to UTI -04/27/2022 Urine cultures growing E coli ESBL -04/27/2022 blood cultures are negative till now -Procalcitonin was elevated although lactic acid level was normal -off Levophed -off IV fluids, tolerating p.o. diet and liquids -will wean stress dose steroids to off -Continue imipenem (2) AGULIAR (acute kidney injury): Code(s): N17.9 - Acute kidney failure, unspecified Status: Acute Assessment and Plan: Multifactorial AGUILAR on CKD secondary to bilateral obstruction likely from BPH, rhabdomyolysis, dehydration, septic shock CT abdomen pelvis showed Moderate bilateral hydronephrosis with bladder and ureteral stranding concerning for cystitis with ascending infection. Continue IV fluids but decrease rate Chua has been placed. Patient was evaluated by Urology and they recommend continuing Chua catheter on discharge and follow-up as an outpatient in the office for further management Continue p.o. 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 of Imodium (4) UTI (urinary tract infection): Code(s): N39.0 - Urinary tract infection, site not specified Status: Acute Assessment and Plan: UA was consistent with UTI. Urine culture has been sent and is growing ESBL E coli. Patient in the past has grown ESBL E coli from his urine hence he is on empiric imipenem which will be continued CT abdomen pelvis Moderate bilateral hydronephrosis with bladder and ureteral stranding concerning for cystitis with ascending infection. Mildly dilated cecum may represent chronic dilation, ileus or less likely early obstruction. Fluid-filled colon as can be seen with diarrheal illness. Chronic and incidental findings detailed above. I suspect patient may have urethral obstruction from BPH leading to bilateral hydronephrosis. Chua has been placed Patient was evaluated by Urology and they recommend continuing Chua catheter on discharge and follow-up as an outpatient in the office for further management (5) Acute hyperkalemia: Code(s): E87.5 - Hyperkalemia Status: Acute Assessment and Plan: Resolved with treatment Monitor (6) Colon cancer: Code(s): C18.9 - Malignant neoplasm of colon, unspecified Status: Chronic Assessment and Plan: Currently on chemotherapy with Irinotecan and Avastin as an outpatient (7) Atrial fibrillation: Qualifiers: Atrial fibrillation type: unspecified chronic Qualified Code(s): I48.20 - Chronic atrial fibrillation, unspecified Code(s): I48.91 - Unspecified atrial fibrillation Status: Chronic Assessment and Plan: Patient went to AFib RVR this morning with rates in the 130s to 150s 05/01: Started on amiodarone bolus and amiodarone infusion infusion -patient sees Dr. Ramírez, -appreciate cardiology evaluation and recommendations (8) Coagulopathy: Code(s): D68.9 - Coagulation defect, unspecified Status: Acute Assessment and Plan: Patient on Xarelto at home currently appears to be coagulopathic secondary to DIC from sepsis Xarelto was held on admission Repeat coags reviewed Continue to hold Xarelto as patient has hematuria on05/01 Plan DVT prophylaxis -SCDs Nutrition -tolerating p.o.
[2022-05-02 16:34] LABS: Glucose Point of Care 303 mg/dl (65-105)
--- NOTE | 2022-05-02 19:37 | PC.NURSE ---
This patient, Donaldo Booker, was received from ICU 10 on 05/02/22 at 1717. Patient/family oriented to unit policies and routines
[2022-05-02 20:51] LABS: Glucose Point of Care 270 mg/dl (65-105)
[2022-05-03] VITALS (13 sets, daily range): BP systolic 92–122; BP diastolic 48–90; PULSE 62–145; RESP 20–22; TEMP 36.6–37.4; O2SAT 98–100
[2022-05-03] MEDS: AMIODARONE 360 MG/D5W 200 ML 360 MG/200 ML BAG 16.67 MG IV CONT (01:46)
[2022-05-03] MEDS: CENTRAL LINE FLUSH 10 ML IV PUSH ×3 (05:26→21:06)
[2022-05-03 06:44] LABS: Hematocrit 31.2 % (42.0-52.0); Hemoglobin 10.1 g/dL (14.0-18.0); Mean Corpuscular HGB Conc 32.4 g/dl (32-36); Mean Corpuscular Hemoglobin 31.3 pg (26-34); Mean Corpuscular Volume 96.6 fl (80-100); Mean Platelet Volume 9.1 fl (7.4-10.4); Platelet Count Result 254 k/mm3 (150-375); Red Blood Count 3.23 M/mm3 (4.6-6.20); Red Cell Distribution Width 17.6 % (11.5-14.5); White Blood Count 23.2 K/mm3 (4.5-10.0)
[2022-05-03 06:55] LABS: Alanine Aminotransferase 33 U/L (6-50); Albumin Level 3.2 g/dL (3.5-5.1); Alkaline Phosphatase 359 U/L (38-126); Anion Gap 7 mmol/L (8-16); Aspartate Amino Transferase 46 U/L (17-59); Bilirubin,Total 0.5 mg/dL (0.2-1.3); Blood Urea Nitrogen 79 mg/dL (9-20); Calcium 8.9 mg/dL (8.4-10.2); Carbon Dioxide 19 mmol/L (22-30); Chloride 111 mmol/L (98-107); Creatine Kinase < 20 U/L (55-170); Estimated CRCL calculation 35 ml/min; Estimated Glomerular Filt Rate 31; Glucose 78 mg/dL (65-110); Magnesium 1.9 mg/dL (1.6-2.3); Potassium 3.6 mmol/L (3.4-5.0); Sodium 137 mmol/L (137-145)
[2022-05-03 08:26] LABS: Glucose Point of Care 88 mg/dl (65-105)
[2022-05-03] MEDS: allopurinoL 300 MG TABLET PO (08:48)
[2022-05-03] MEDS: SODIUM BICARBONATE TAB 650 MG TABLET PO ×2 (08:48→17:21)
[2022-05-03] MEDS: HYDROCORTISONE SODIUM SUCCINATE 100 MG/2 ML VIAL 50 MG IV PUSH (08:48)
[2022-05-03] MEDS: FINASTERIDE 5 MG TABLET PO (08:48)
[2022-05-03] MEDS: INSULIN GLARGINE (*BKC) 100 UNITS/ML 20 UNITS SUB-Q (08:48)
--- NOTE | 2022-05-03 09:20 | PM.PNCARD ---
Progress Note: A&P Assessment and Plan (1) Cardiomyopathy: Code(s): I42.9 - Cardiomyopathy, unspecified Status: Acute (2) Atrial fibrillation with rapid ventricular response: Code(s): I48.91 - Unspecified atrial fibrillation Status: Acute Plan 71-year-old man with: Challenging combination of AFib with RVR, systolic LV dysfunction as well as metastatic colon cancer. Will try to transition patient back to his rate control regimen which we he was taking prior to admission including metoprolol and diltiazem. Will substitute metoprolol succinate at a starting dose of [address] him back on diltiazem recognizing that he does have LV systolic dysfunction but he was tolerating this regimen prior to admission and was not hemodynamically unstable. Treatment strategy in this patient is obviously more short term given his malignancy. Will discontinue intravenous amiodarone as he is taking oral medication. Will hold off on resuming Entresto until we see what his hemodynamic situation is like F following resumption of metoprolol and diltiazem. Juvenal Hernandez MD [facility] Subjective Date/time seen: Date of service: 05/03/22 09:20 Interval history: Follow-up visit in this 71-year-old man with: Chronic atrial fibrillation and LV systolic dysfunction also unfortunately with metastatic/stage IV colon cancer. Patient states he feels better today with no specific complaints he was actually up ambulating with PT this morning. Telemetry demonstrates AF with RVR despite IV amiodarone treatment. Exam Const: Other: Overweight chronically ill-appearing man no distress HENMT: Mouth: Yes moist mucous membranes Eyes: Sclera: sclerae normal Neck: Neck: supple and no JVD Resp: Effort & Inspection: normal respiratory effort Other: Breath sounds are essentially clear in both lung pelletier Cardio: Rate: tachycardic Rhythm: abnormal rhythm irregularly irregular GI: GI Palp: Yes Soft to palpation Auscultation: normal bowel sounds Skin: General skin exam: normal color Neuro: Other: Alert and oriented Extrem: Other: Mild bipedal edema with changes of chronic venous insufficiency Objective Data Vital Signs Vital Signs: Vital Signs - 24 hr 05/02/22 15:13 05/02/22 10:00 05/02/22 12:00 Temperature Pulse Rate 112 H 120 H 108 H Respiratory Rate Blood Pressure 118/75 Pulse Oximetry Oxygen Delivery 05/02/22 14:00 05/02/22 12:00 05/02/22 16:00 Temperature Pulse Rate 102 H 122 H 108 H Respiratory Rate 22 H 17 Blood Pressure Pulse Oximetry 100 100 Oxygen Delivery Room Air Room Air 05/02/22 16:00 05/02/22 16:00 05/02/22 09:30 Temperature Pulse Rate 120 H 120 H 119 H Respiratory Rate 17 17 Blood Pressure Pulse Oximetry 100 Oxygen Delivery 05/02/22 09:45 05/02/22 10:00 05/02/22 10:01 Temperature Pulse Rate 127 H 121 H 120 H Respiratory Rate 17 16 17 Blood Pressure 114/65 Pulse Oximetry 100 Oxygen Delivery 05/02/22 10:15 05/02/22 10:30 05/02/22 10:45 Temperature Pulse Rate 117 H 108 H 113 H Respiratory Rate 14 14 Blood Pressure Pulse Oximetry 100 Oxygen Delivery 05/02/22 11:00 05/02/22 11:15 05/02/22 11:30 Temperature Pulse Rate 114 H 126 H 112 H Respiratory Rate 18 17 16 Blood Pressure Pulse Oximetry 100 100 100 Oxygen Delivery 05/02/22 11:45 05/02/22 12:00 05/02/22 12:01 Temperature 35.9 C L Pulse Rate 141 H 121 H 117 H Respiratory Rate 16 13 17 Blood Pressure 121/87 Pulse Oximetry 100 100 100 Oxygen Delivery 05/02/22 12:15 05/02/22 12:30 05/02/22 12:45 Temperature Pulse Rate 132 H 121 H 132 H Respiratory Rate 16 17 16 Blood Pressure Pulse Oximetry 100 Oxygen Delivery 05/02/22 13:01 05/02/22 13:15 05/02/22 13:30 Temperature Pulse Rate 113 H 105 H 119 H Respiratory Rate 15 14 14 Blood Pressure Pulse Oximetry Oxygen Delivery
[2022-05-03] MEDS: METOPROLOL SUCCINATE EXT REL 50 MG TABCR PO (10:18)
--- NOTE | 2022-05-03 11:53 | P.PNNP_ITS ---
Progress Note: A&P Assessment and Plan (1) AGUILAR (acute kidney injury): Code(s): N17.9 - Acute kidney failure, unspecified Status: Acute Assessment and Plan: * resolving * baseline creatinine normally runs ~ 1.0 - 1.3mg/dl * suspect multifactorial etiology: * obstructive uropathy * ATN * pre-renal factors * hemodynamic instability/hypotension * BPH * infection * diuretics + Entresto prior to admission * evaluation to date: * imaging with bilateral hydronephrosis * CPK mildly elevated (but not likely to affect kidney function) * urine electrolytes non-prerenal * kincaid catheter in place * repeat renal ultrasound (on 05/02) with mild bilateral hydronephrosis * started on oral bicarbonate - CO2 is better than on admission. * follow repeat labs and UOP (2) Septic shock: Code(s): A41.9 - Sepsis, unspecified organism; R65.21 - Severe sepsis with septic shock Status: Acute Assessment and Plan: * presumably due to UTI * urine shows E Coli. * blood cultures negative to date so far * weaning steroids * on antibiotics (3) Acute hyperkalemia: Code(s): E87.5 - Hyperkalemia Status: Acute Assessment and Plan: * resolved (4) UTI (urinary tract infection): Code(s): N39.0 - Urinary tract infection, site not specified Status: Acute Assessment and Plan: * UA consistent with this * urine culture with E.coli * on antibiotics * kincaid in place (5) Diarrhea: Code(s): R19.7 - Diarrhea, unspecified Status: Acute Assessment and Plan: * chronic issues and reportedly due to chemotherapy * CT imaging of abd/pelvis noted * C. diff toxin assay negative * on immodium (6) Atrial fibrillation: Qualifiers: Atrial fibrillation type: unspecified chronic Qualified Code(s): I48.20 - Chronic atrial fibrillation, unspecified Code(s): I48.91 - Unspecified atrial fibrillation Status: Chronic Assessment and Plan: * holding cardizem and metoprolol due to shock * rate control strategy * resume medications as BP tolerated * holding xarelto due to hematuria Will continue to follow. Subjective Date/time seen: 05/03/22 11:53 Chart reviewed since last seen -- transferred out of ICU; renal function improving (albeit slowly) at this time with reasonable urine output; working with PT/OT as tolerated; no issues/events overnight or earlier this AM. Exam Narrative: General: elderly male in NAD Heart: normal S1 and S2; irregular rhythm no rub or gallop Lungs: clear to auscultation Abdomen: soft, nontender, nondistended, positive bowel sounds Extremities: no cyanosis or clubbing; no edema Skin: warm and dry Objective Data Vital Signs Vital Signs: Vital Signs Temp Pulse Resp BP Pulse Ox O2 Del Method 05/03/22 10:00 121 H 05/03/22 08:00 145 H 05/03/22 08:00 Room Air 05/03/22 08:45 Room Air 05/03/22 08:00 97.9 F 84 20 101/70 98 05/03/22 06:00 110 H 05/03/22 04:00 105 H 20 100 Room Air 05/03/22 04:00 105 H 05/03/22 04:00 98.1 F 123 H 20 122/65 100 05/03/22 02:00 119 H 05/03/22 01:46 102 H 05/02/22 23:45 102 H 20 100 Room Air 05/02/22 23:45 1
--- NOTE | 2022-05-03 11:53 | PM.PNNEP ---
Progress Note: A&P Assessment and Plan (1) AGUILAR (acute kidney injury): Code(s): N17.9 - Acute kidney failure, unspecified Status: Acute Assessment and Plan: resolving baseline creatinine normally runs ~ 1.0 - 1.3mg/dl suspect multifactorial etiology: obstructive uropathy ATN pre-renal factors hemodynamic instability/hypotension BPH infection diuretics + Entresto prior to admission evaluation to date: imaging with bilateral hydronephrosis CPK mildly elevated (but not likely to affect kidney function) urine electrolytes non-prerenal kincaid catheter in place repeat renal ultrasound (on 05/02) with mild bilateral hydronephrosis started on oral bicarbonate - CO2 is better than on admission. follow repeat labs and UOP (2) Septic shock: Code(s): A41.9 - Sepsis, unspecified organism; R65.21 - Severe sepsis with septic shock Status: Acute Assessment and Plan: presumably due to UTI urine shows E Coli. blood cultures negative to date so far weaning steroids on antibiotics (3) Acute hyperkalemia: Code(s): E87.5 - Hyperkalemia Status: Acute Assessment and Plan: resolved (4) UTI (urinary tract infection): Code(s): N39.0 - Urinary tract infection, site not specified Status: Acute Assessment and Plan: UA consistent with this urine culture with E.coli on antibiotics kincaid in place (5) Diarrhea: Code(s): R19.7 - Diarrhea, unspecified Status: Acute Assessment and Plan: chronic issues and reportedly due to chemotherapy CT imaging of abd/pelvis noted C. diff toxin assay negative on immodium (6) Atrial fibrillation: Qualifiers: Atrial fibrillation type: unspecified chronic Qualified Code(s): I48.20 - Chronic atrial fibrillation, unspecified Code(s): I48.91 - Unspecified atrial fibrillation Status: Chronic Assessment and Plan: holding cardizem and metoprolol due to shock rate control strategy resume medications as BP tolerated holding xarelto due to hematuria Will continue to follow. Subjective Date/time seen: 05/03/22 11:53 Chart reviewed since last seen -- transferred out of ICU; renal function improving (albeit slowly) at this time with reasonable urine output; working with PT/OT as tolerated; no issues/events overnight or earlier this AM. Exam Narrative: General: elderly male in NAD Heart: normal S1 and S2; irregular rhythm no rub or gallop Lungs: clear to auscultation Abdomen: soft, nontender, nondistended, positive bowel sounds Extremities: no cyanosis or clubbing; no edema Skin: warm and dry Objective Data Vital Signs Vital Signs: Vital Signs Temp Pulse Resp BP Pulse Ox O2 Del Method 05/03/22 10:00 121 H 05/03/22 08:00 145 H 05/03/22 08:00 Room Air 05/03/22 08:45 Room Air 05/03/22 08:00 97.9 F 84 20 101/70 98 05/03/22 06:00 110 H 05/03/22 04:00 105 H 20 100 Room Air 05/03/22 04:00 105 H 05/03/22 04:00 98.1 F 123 H 20 122/65 100 05/03/22 02:00 119 H 05/03/22 01:46 102 H 05/02/22 23:45 102 H 20 100 Room Air 05/02/22 23:45 104 H 05/02/22 23:06 97.6 F 125 H 20 120/63 100 05/02/22 22:00 102 H 05/02/22 20:00 127 H 20 100 Room Air 05/02/22 20:00 127 H 05/02/22 20:00 97.2 F L 134 H 20 130/81 100 05/02/22 18:00 128 H 05/02/22 15:30 122 H 15 05/02/22 15:15 106 H 19 100 05/02/22 15:00 122 H 15 100 05/02/22 14:45 104 H 17 100 05/02/22 14:30 92 14 05/02/22 14:15 94 16 100 05/02/22 14:01 105 H 15 118/75 100 05/02/22 14:00 116 H 17 100 05/02/22 13:45 104 H 14 05/02/22 13:30 119 H 14 05/02/22 13:15 105 H 14 05/02/22 13:01 113 H 15 05/02/22 12:45 132 H 16 100 05/02/22 12:30 121 H 17
[2022-05-03] MEDS: INSULIN ASPART (*BKC) 100 UNITS/ML SUB-Q ×2 (12:20→21:05)
[2022-05-03 15:51] LABS: Glucose Point of Care 235 mg/dl (65-105)
--- NOTE | 2022-05-03 16:43 | PM.IMPN ---
Progress Note: A&P Assessment and Plan (1) Metastatic disease: Code(s): C79.9 - Secondary malignant neoplasm of unspecified site Status: Acute Assessment and Plan: Status post chemotherapy Follow-up with Heme-Onc as outpatient Last chemotherapy was 2 weeks ago 05/03/2022 interval history: 71-year-old male presented with septic shock secondary to UTI urine culture is growing E coli ESBL being treated with imipenem, patient is also found to have atrial fibrillation with RVR with systolic dysfunction patient is seen by Cardiology being treated with metoprolol and diltiazem rate is trending, also has history of colon cancer, will continue to monitor once clinically stable will have PT OT evaluate the patient. (2) Colon cancer: Code(s): C18.9 - Malignant neoplasm of colon, unspecified Status: Chronic Assessment and Plan: Follow-up with Heme-Onc as outpatient (3) Acute kidney injury: Code(s): N17.9 - Acute kidney failure, unspecified Status: Acute Assessment and Plan: Most likely multifactorial related to dehydration patient also has bilateral hydronephrosis probably related to chronic urine retention Chua catheter Nephrology consult Urine electrolyte Reviewed CT scan of the abdomen avoid nephrotoxic medication (4) Venous insufficiency (chronic) (peripheral): Code(s): I87.2 - Venous insufficiency (chronic) (peripheral) Status: Acute Assessment and Plan: Keep leg elevated (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: Code(s): E11.59 - Type 2 diabetes mellitus with other circulatory complications Status: Chronic Assessment and Plan: Insulin sliding scale Hemoglobin A1c (6) Atrial fibrillation: Qualifiers: Atrial fibrillation type: unspecified chronic Qualified Code(s): I48.20 - Chronic atrial fibrillation, unspecified Code(s): I48.91 - Unspecified atrial fibrillation Status: Chronic Assessment and Plan: Pending home medication reconciliation patient was on metoprolol Cardizem and Xarelto per record pending confirmation of home medication (7) Gout: Code(s): M10.9 - Gout, unspecified Status: Chronic Assessment and Plan: Patient was on allopurinol pending confirmation of home medication (8) Congestive heart failure: Qualifiers: Heart failure type: diastolic Heart failure chronicity: chronic Qualified Code(s): I50.32 - Chronic diastolic (congestive) heart failure Code(s): I50.9 - Heart failure, unspecified Status: Chronic Assessment and Plan: Hold diuretics due to hypotension (9) Essential hypertension: Code(s): I10 - Essential (primary) hypertension Status: Acute Assessment and Plan: Hold diuretics due to hypotension (10) Hyperkalemia: Code(s): E87.5 - Hyperkalemia Status: Acute Assessment and Plan: IV hydration Patient on bicarb drip Repeat potassium level (11) Hyponatremia: Code(s): E87.1 - Hypo-osmolality and hyponatremia Status: Acute Assessment and Plan: Most likely related to dehydration IV fluid monitor (12) Diarrhea: Code(s): R19.7 - Diarrhea, unspecified Status: Acute Assessment and Plan: Associated with hypotension give IV fluid Levophed check C diff will add Flagyl pending C diff (13) UTI (urinary tract infection): Code(s): N39.0 - Urinary tract infection, site not specified Status: Acute Assessment and Plan: IV antibiotics Subjective Date/time seen: 05/03/22 16:43 05/03/2022 interval history: 71-year-old male presented with septic shock secondary to UTI urine culture is growing E coli ESBL being treated with imipenem, patient is also found to have atrial fibrillation with RVR with systolic dysfunction patient is seen by Cardiology being treated with metoprolol and diltiazem rate is trending, also has his
[2022-05-03 17:36] LABS: Glucose Point of Care 146 mg/dl (65-105)
[2022-05-03 20:10] LABS: Glucose Point of Care 320 mg/dl (65-105)
[2022-05-04] VITALS (15 sets, daily range): BP systolic 95–109; BP diastolic 49–66; PULSE 63–112; RESP 16–20; TEMP 36.3–36.8; O2SAT 99–100
[2022-05-04 05:11] LABS: Hemoglobin 8.6 g/dL (14.0-18.0); Mean Corpuscular HGB Conc 33.1 g/dl (32-36); Mean Corpuscular Hemoglobin 31.7 pg (26-34); Mean Corpuscular Volume 95.9 fl (80-100); Mean Platelet Volume 9.4 fl (7.4-10.4); Platelet Count Result 200 k/mm3 (150-375); Red Blood Count 2.71 M/mm3 (4.6-6.20)
[2022-05-04 05:32] LABS: Anion Gap 4 mmol/L (8-16); Blood Urea Nitrogen 82 mg/dL (9-20); Calcium 8.3 mg/dL (8.4-10.2); Carbon Dioxide 22 mmol/L (22-30); Chloride 111 mmol/L (98-107); Estimated CRCL calculation 38 ml/min; Estimated Glomerular Filt Rate 33; Glucose 53 mg/dL (65-110); Magnesium 1.8 mg/dL (1.6-2.3); Potassium 3.3 mmol/L (3.4-5.0); Sodium 137 mmol/L (137-145)
[2022-05-04] MEDS: CENTRAL LINE FLUSH 10 ML IV PUSH ×3 (05:59→20:21)
[2022-05-04 06:25] LABS: Glucose Point of Care 85 mg/dl (65-105)
[2022-05-04 07:43] LABS: Glucose Point of Care 89 mg/dl (65-105)
[2022-05-04] MEDS: allopurinoL 300 MG TABLET PO (08:44)
[2022-05-04] MEDS: FINASTERIDE 5 MG TABLET PO (08:44)
[2022-05-04] MEDS: METOPROLOL SUCCINATE EXT REL 50 MG TABCR PO (08:44)
[2022-05-04] MEDS: SODIUM BICARBONATE TAB 650 MG TABLET PO ×2 (08:45→17:32)
[2022-05-04] MEDS: HYDROCORTISONE SODIUM SUCCINATE 100 MG/2 ML VIAL 50 MG IV PUSH (08:46)
[2022-05-04] MEDS: INSULIN GLARGINE (*BKC) 100 UNITS/ML 20 UNITS SUB-Q (08:46)
--- NOTE | 2022-05-04 09:20 | PM.PNCARD ---
Progress Note: A&P Assessment and Plan (1) Atrial fibrillation with rapid ventricular response: Code(s): I48.91 - Unspecified atrial fibrillation Status: Acute Assessment and Plan: Transitioned from IV Amiodarone to home regimen of Diltiazem and Metoprolol. Metoprolol tartrate transitioned to succinate form. Although patient has LV systolic dysfunction, he was tolerating Dilitazem prior to admission and was not hemodynamically stable. Off anticoagulation due to hematuria. I am going to increase his beta dinora today for additonal rate control. (2) Cardiomyopathy: Code(s): I42.9 - Cardiomyopathy, unspecified Status: Acute Assessment and Plan: History mild LV systolic dysfunction EF 45-50%. Continue beta dinora. Will hold off on restarting Entresto as I do not think his blood pressure will tolerate it at this point and given his AUGILAR. (3) AGUILAR (acute kidney injury): Code(s): N17.9 - Acute kidney failure, unspecified Status: Acute Assessment and Plan: Nephrology following along. Hold off on resuming Entresto due to AGUILAR. Subjective Date/time seen: 05/04/22 09:20 Interval history: Reason for visit: Atrial fibrillation with RVR HPI: Patient is a complicated 71-year-old male with past medical history significant for stage IV colon cancer, longstanding persistent atrial fibrillation on anticoagulation, history of? heart failure with mildly reduced EF, diabetes mellitus, thrombocytopenia, who is transferred [facility] ICU for weakness and worsening diarrhea.? Diarrhea thought to be secondary to chemotherapy but he also admitted to poor oral intake and feeling weaker.? In the emergency department h was hypotensive with acute renal failure Creatinine of 6.2 initially now 2.3 after being started on IV fluids and pressors secondary to E coli UTI. stress dose steroids have been discontinued he remains on imipenem.? Patient had moderate bilateral hydronephrosis now with Chua catheter.? his renal function has improved he was weaned off Levophed.? He developed atrial fibrillation with rapid ventricular response necessitating initiation of IV amiodarone infusion with better heart rate control with intermittent RVR episodes.? Patient has a history of RVR particular the acute illness refractory but generally controlled on oral diltiazem and metoprolol.? Patient denies chest pain, shortness of breath or palpitations at this time.? States she is feeling better although somewhat weak.? Appetite improving.? He inquired about his medications was informed that been held secondary to his low blood pressures earlier this hospitalization.? Xarelto has been on hold secondary to coagulopathy and ongoing hematuria. Patient has remained afebrile.? No noted bright red blood per rectum or melena.? No hemoptysis.? Diarrhea improving. Date of service 05/03: Chronic atrial fibrillation and LV systolic dysfunction also unfortunately with metastatic/stage IV colon cancer.? Patient states he feels better today with no specific complaints he was actually up ambulating with PT this morning.? Telemetry demonstrates AF with RVR despite IV amiodarone treatment. Date of service 05/04: Patient reports he is overall feeling well. No shortness of breath or chest pain. Review of Systems Review of Systems: 8 point ROS obtained. Negative, unless stated in HPI. Exam Const: Other: Overweight chronically ill-appearing man no distress HENMT: Mouth: Yes moist mucous membranes Eyes: General: appearance normal, both eyes and all related structures Sclera: sclerae normal Neck: Neck: supple Resp: Effort & Inspection: normal respiratory effort Other: Breath sounds are essentially clear in both lung pelletier Cardio: Rate: tachycardic Rhythm: abnormal rhythm irregularly irregular GI: GI Palp: Yes Soft to palpation Skin: General skin exam: normal color Neuro: Speech: normal speech Other: Alert and oriented Ex
--- NOTE | 2022-05-04 09:48 | P.PNNP_ITS ---
Progress Note: A&P Assessment and Plan (1) AGUILAR (acute kidney injury): Code(s): N17.9 - Acute kidney failure, unspecified Status: Acute Assessment and Plan: * resolving * baseline creatinine normally runs ~ 1.0 - 1.3mg/dl * suspect multifactorial etiology: * obstructive uropathy * ATN (likely reason for slow recovery) * pre-renal factors * hemodynamic instability/hypotension * BPH * infection * diuretics + Entresto prior to admission * evaluation to date: * imaging with bilateral hydronephrosis * CPK mildly elevated (but not likely to affect kidney function) * urine electrolytes non-prerenal * kincaid catheter in place * repeat renal ultrasound (on 05/02) with mild bilateral hydronephrosis * on oral bicarb - CO2 is better than on admission. * follow repeat labs and UOP (2) Septic shock: Code(s): A41.9 - Sepsis, unspecified organism; R65.21 - Severe sepsis with septic shock Status: Acute Assessment and Plan: * resolving * presumably due to UTI * urine shows E Coli * blood cultures negative to date so far * weaning steroids * on antibiotics (3) Acute hyperkalemia: Code(s): E87.5 - Hyperkalemia Status: Acute Assessment and Plan: * resolved (4) UTI (urinary tract infection): Code(s): N39.0 - Urinary tract infection, site not specified Status: Acute Assessment and Plan: * UA consistent with this * urine culture with E.coli * on antibiotics * kincaid in place (5) Diarrhea: Code(s): R19.7 - Diarrhea, unspecified Status: Acute Assessment and Plan: * chronic issues and reportedly due to chemotherapy * CT imaging of abd/pelvis noted * C. diff toxin assay negative * on immodium (6) Atrial fibrillation: Qualifiers: Atrial fibrillation type: unspecified chronic Qualified Code(s): I48.20 - Chronic atrial fibrillation, unspecified Code(s): I48.91 - Unspecified atrial fibrillation Status: Chronic Assessment and Plan: * holding cardizem and metoprolol due to shock * rate control strategy * resume medications as BP tolerated * holding xarelto due to hematuria * Cardiology following Will continue to follow. Subjective Date/time seen: 05/04/22 09:48 Overall, seems to be doing reasonably well; working with PT/OT as tolerated and denies any acute complaints; renal function improving slowly as well; no apparent distress. Exam Narrative: General: elderly male in NAD Heart: normal S1 and S2; IRRR Lungs: clear to auscultation Abdomen: soft, nontender, nondistended, positive bowel sounds Extremities: no cyanosis or clubbing; no edema Skin: warm and dry Objective Data Vital Signs Vital Signs: Vital Signs Temp Pulse Resp BP Pulse Ox O2 Del Method 05/04/22 08:44 112 H 05/04/22 07:49 98.2 F 90 16 109/55 L 99 05/04/22 06:00 88 05/04/22 04:00 85 20 99 Room Air 05/04/22 04:00 85 05/04/22 02:00 92 05/04/22 04:00 98 F 85 20 103/54 L 99 05/04/22 00:00 90 20 100 Room Air 05/04/22 00:00 90 05/03/22 23:13 98 F 95 20 106/58 L 100 05/03/22 21:47 97 05/03/22 20:00 98 20 98 Room Air 05/03/22 20:00 98
--- NOTE | 2022-05-04 09:48 | PM.PNNEP ---
Progress Note: A&P Assessment and Plan (1) AGUILAR (acute kidney injury): Code(s): N17.9 - Acute kidney failure, unspecified Status: Acute Assessment and Plan: resolving baseline creatinine normally runs ~ 1.0 - 1.3mg/dl suspect multifactorial etiology: obstructive uropathy ATN (likely reason for slow recovery) pre-renal factors hemodynamic instability/hypotension BPH infection diuretics + Entresto prior to admission evaluation to date: imaging with bilateral hydronephrosis CPK mildly elevated (but not likely to affect kidney function) urine electrolytes non-prerenal kincaid catheter in place repeat renal ultrasound (on 05/02) with mild bilateral hydronephrosis on oral bicarb - CO2 is better than on admission. follow repeat labs and UOP (2) Septic shock: Code(s): A41.9 - Sepsis, unspecified organism; R65.21 - Severe sepsis with septic shock Status: Acute Assessment and Plan: resolving presumably due to UTI urine shows E Coli blood cultures negative to date so far weaning steroids on antibiotics (3) Acute hyperkalemia: Code(s): E87.5 - Hyperkalemia Status: Acute Assessment and Plan: resolved (4) UTI (urinary tract infection): Code(s): N39.0 - Urinary tract infection, site not specified Status: Acute Assessment and Plan: UA consistent with this urine culture with E.coli on antibiotics kincaid in place (5) Diarrhea: Code(s): R19.7 - Diarrhea, unspecified Status: Acute Assessment and Plan: chronic issues and reportedly due to chemotherapy CT imaging of abd/pelvis noted C. diff toxin assay negative on immodium (6) Atrial fibrillation: Qualifiers: Atrial fibrillation type: unspecified chronic Qualified Code(s): I48.20 - Chronic atrial fibrillation, unspecified Code(s): I48.91 - Unspecified atrial fibrillation Status: Chronic Assessment and Plan: holding cardizem and metoprolol due to shock rate control strategy resume medications as BP tolerated holding xarelto due to hematuria Cardiology following Will continue to follow. Subjective Date/time seen: 05/04/22 09:48 Overall, seems to be doing reasonably well; working with PT/OT as tolerated and denies any acute complaints; renal function improving slowly as well; no apparent distress. Exam Narrative: General: elderly male in NAD Heart: normal S1 and S2; IRRR Lungs: clear to auscultation Abdomen: soft, nontender, nondistended, positive bowel sounds Extremities: no cyanosis or clubbing; no edema Skin: warm and dry Objective Data Vital Signs Vital Signs: Vital Signs Temp Pulse Resp BP Pulse Ox O2 Del Method 05/04/22 08:44 112 H 05/04/22 07:49 98.2 F 90 16 109/55 L 99 05/04/22 06:00 88 05/04/22 04:00 85 20 99 Room Air 05/04/22 04:00 85 05/04/22 02:00 92 05/04/22 04:00 98 F 85 20 103/54 L 99 05/04/22 00:00 90 20 100 Room Air 05/04/22 00:00 90 05/03/22 23:13 98 F 95 20 106/58 L 100 05/03/22 21:47 97 05/03/22 20:00 98 20 98 Room Air 05/03/22 20:00 98 05/03/22 20:00 97.9 F 99 20 107/59 L 98 05/03/22 18:00 109 H 05/03/22 16:00 98.9 F 94 22 H 92/48 L 99 05/03/22 16:00 93 05/03/22 16:00 Room Air 05/03/22 14:00 98 05/03/22 12:00 99.3 F 62 22 H 119/90 99 05/03/22 12:00 Room Air 05/03/22 12:00 138 H Intake/Output Intake/Output: Intake & Output 05/01/22 05/02/22 05/03/22 05/04/22 23:59 23:59 23:59 23:59 Intake Total 2130 2780 1420 580 Output Total 2850 3250 7545 Jrbjdoa -264 -351 -0681 580 Meds/Results Medications: Active Medications Generic Name Dose Route Start Last Admin Trade Name Mingq PRN Reason Stop Dose Admin Acetaminophen 650 mg 04/27/22 20:06 05/02/22 08:23 Acetaminophe
[2022-05-04] MEDS: METOPROLOL SUCCINATE EXT REL 25 MG TABCR PO (10:18)
[2022-05-04] MEDS: POTASSIUM CHLORIDE 20 MEQ PACKET (FOR LIQUID) 40 MEQ PO (11:13)
--- NOTE | 2022-05-04 15:23 | PM.IMPN ---
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 (2) Colon cancer: Code(s): C18.9 - Malignant neoplasm of colon, unspecified Status: Chronic Assessment and Plan: Follow-up with Heme-Onc as outpatient (3) Acute kidney injury: Code(s): N17.9 - Acute kidney failure, unspecified Status: Acute Assessment and Plan: Most likely multifactorial related to dehydration patient also has bilateral hydronephrosis probably related to chronic urine retention Chua catheter Nephrology consult Urine electrolyte Reviewed CT scan of the abdomen avoid nephrotoxic medication (4) Venous insufficiency (chronic) (peripheral): Code(s): I87.2 - Venous insufficiency (chronic) (peripheral) Status: Acute Assessment and Plan: Keep leg elevated (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: Code(s): E11.59 - Type 2 diabetes mellitus with other circulatory complications Status: Chronic Assessment and Plan: Insulin sliding scale Hemoglobin A1c (6) Atrial fibrillation: Qualifiers: Atrial fibrillation type: unspecified chronic Qualified Code(s): I48.20 - Chronic atrial fibrillation, unspecified Code(s): I48.91 - Unspecified atrial fibrillation Status: Chronic Assessment and Plan: Pending home medication reconciliation patient was on metoprolol Cardizem and Xarelto per record pending confirmation of home medication (7) Gout: Code(s): M10.9 - Gout, unspecified Status: Chronic Assessment and Plan: Patient was on allopurinol pending confirmation of home medication (8) Congestive heart failure: Qualifiers: Heart failure type: diastolic Heart failure chronicity: chronic Qualified Code(s): I50.32 - Chronic diastolic (congestive) heart failure Code(s): I50.9 - Heart failure, unspecified Status: Chronic Assessment and Plan: Hold diuretics due to hypotension (9) Essential hypertension: Code(s): I10 - Essential (primary) hypertension Status: Acute Assessment and Plan: Hold diuretics due to hypotension (10) Hyperkalemia: Code(s): E87.5 - Hyperkalemia Status: Acute Assessment and Plan: IV hydration Patient on bicarb drip Repeat potassium level (11) Hyponatremia: Code(s): E87.1 - Hypo-osmolality and hyponatremia Status: Acute Assessment and Plan: Most likely related to dehydration IV fluid monitor (12) Diarrhea: Code(s): R19.7 - Diarrhea, unspecified Status: Acute Assessment and Plan: Associated with hypotension give IV fluid Levophed check C diff will add Flagyl pending C diff (13) UTI (urinary tract infection): Code(s): N39.0 - Urinary tract infection, site not specified Status: Acute Assessment and Plan: IV antibiotics Subjective Date/time seen: 05/04/22 15:23 05/04/2022 interval history: 71-year-old male presented with septic shock secondary to UTI urine culture is growing E coli ESBL being treated with imipenem, patient is also found to have atrial fibrillation with RVR with sy
[2022-05-04 16:32] LABS: Glucose Point of Care 303 mg/dl (65-105)
[2022-05-04] MEDS: INSULIN ASPART (*BKC) 100 UNITS/ML SUB-Q (17:31)
[2022-05-04 20:26] LABS: Glucose Point of Care 378 mg/dl (65-105)
[2022-05-05] VITALS (14 sets, daily range): BP systolic 103–115; BP diastolic 46–65; PULSE 68–103; RESP 16–20; TEMP 36.1–36.9; O2SAT 98–100
[2022-05-05] MEDS: CENTRAL LINE FLUSH 10 ML IV PUSH ×3 (05:47→20:13)
[2022-05-05 06:26] LABS: Hemoglobin 8.7 g/dL (14.0-18.0); Mean Corpuscular HGB Conc 32.2 g/dl (32-36); Mean Corpuscular Hemoglobin 31.2 pg (26-34); Mean Corpuscular Volume 96.8 fl (80-100); Platelet Count Result 176 k/mm3 (150-375); Red Blood Count 2.79 M/mm3 (4.6-6.20); Red Cell Distribution Width 18.2 % (11.5-14.5); White Blood Count 15.9 K/mm3 (4.5-10.0)
[2022-05-05 06:34] LABS: Anion Gap 6 mmol/L (8-16); Blood Urea Nitrogen 75 mg/dL (9-20); Calcium 8.3 mg/dL (8.4-10.2); Carbon Dioxide 21 mmol/L (22-30); Chloride 107 mmol/L (98-107); Estimated CRCL calculation 44 ml/min; Estimated Glomerular Filt Rate 40; Glucose 113 mg/dL (65-110); Magnesium 1.9 mg/dL (1.6-2.3); Potassium 3.9 mmol/L (3.4-5.0); Sodium 134 mmol/L (137-145)
[2022-05-05 07:58] LABS: Glucose Point of Care 102 mg/dl (65-105)
[2022-05-05] MEDS: SODIUM BICARBONATE TAB 650 MG TABLET PO ×2 (10:05→16:24)
[2022-05-05] MEDS: allopurinoL 300 MG TABLET PO (10:05)
[2022-05-05] MEDS: FINASTERIDE 5 MG TABLET PO (10:05)
[2022-05-05] MEDS: METOPROLOL SUCCINATE EXT REL 25 MG TABCR 75 MG PO (10:05)
--- NOTE | 2022-05-05 11:36 | PM.PNCARD ---
Progress Note: A&P Assessment and Plan (1) Atrial fibrillation with rapid ventricular response: Code(s): I48.91 - Unspecified atrial fibrillation Status: Acute Assessment and Plan: Transitioned from IV Amiodarone to home regimen of Diltiazem and Metoprolol. Metoprolol tartrate transitioned to succinate form. Although patient has LV systolic dysfunction, he was tolerating Dilitazem prior to admission and was not hemodynamically stable. Off anticoagulation due to hematuria. I am going to increase his beta dinora today for additional rate control. Increased Metoprolol to 100mg. (2) Cardiomyopathy: Code(s): I42.9 - Cardiomyopathy, unspecified Status: Acute Assessment and Plan: History mild LV systolic dysfunction EF 45-50%. Continue beta dinora. Will hold off on restarting Entresto as I do not think his blood pressure will tolerate it at this point and given his AGUILAR. GDMT can be done as outpatient. (3) AGUILAR (acute kidney injury): Code(s): N17.9 - Acute kidney failure, unspecified Status: Acute Assessment and Plan: Nephrology following along. Hold off on resuming Entresto due to AGUILAR. Will work on GDMT as an outpatient. Subjective Date/time seen: 05/05/22 11:36 Interval history: Reason for visit: Atrial fibrillation with RVR HPI: Patient is a complicated 71-year-old male with past medical history significant for stage IV colon cancer, longstanding persistent atrial fibrillation on anticoagulation, history of? heart failure with mildly reduced EF, diabetes mellitus, thrombocytopenia, who is transferred [facility] ICU for weakness and worsening diarrhea.? Diarrhea thought to be secondary to chemotherapy but he also admitted to poor oral intake and feeling weaker.? In the emergency department h was hypotensive with acute renal failure Creatinine of 6.2 initially now 2.3 after being started on IV fluids and pressors secondary to E coli UTI. stress dose steroids have been discontinued he remains on imipenem.? Patient had moderate bilateral hydronephrosis now with Chua catheter.? his renal function has improved he was weaned off Levophed.? He developed atrial fibrillation with rapid ventricular response necessitating initiation of IV amiodarone infusion with better heart rate control with intermittent RVR episodes.? Patient has a history of RVR particular the acute illness refractory but generally controlled on oral diltiazem and metoprolol.? Patient denies chest pain, shortness of breath or palpitations at this time.? States she is feeling better although somewhat weak.? Appetite improving.? He inquired about his medications was informed that been held secondary to his low blood pressures earlier this hospitalization.? Xarelto has been on hold secondary to coagulopathy and ongoing hematuria. Patient has remained afebrile.? No noted bright red blood per rectum or melena.? No hemoptysis.? Diarrhea improving. Date of service 05/03: Chronic atrial fibrillation and LV systolic dysfunction also unfortunately with metastatic/stage IV colon cancer.? Patient states he feels better today with no specific complaints he was actually up ambulating with PT this morning.? Telemetry demonstrates AF with RVR despite IV amiodarone treatment. Date of service 05/04: Patient reports he is overall feeling well. No shortness of breath or chest pain. Date of service 05/05: No acute issues overnight. Patient without any complaints this morning. Sitting up in chair at bedside. Review of Systems Review of Systems: 8 point ROS obtained. Negative, unless stated in HPI. Exam Const: Other: Overweight chronically ill-appearing man no distress HENMT: Mouth: Yes moist mucous membranes Eyes: General: appearance normal, both eyes and all related structures Sclera: sclerae normal Neck: Neck: supple Resp: Effort & Inspection: normal respiratory effort Other: Breath sounds are essentially clear in bot
[2022-05-05 11:47] LABS: Glucose Point of Care 292 mg/dl (65-105)
[2022-05-05] MEDS: METOPROLOL SUCCINATE EXT REL 25 MG TABCR PO (12:15)
[2022-05-05] MEDS: INSULIN ASPART (*BKC) 100 UNITS/ML SUB-Q (12:16)
[2022-05-05] MEDS: INSULIN GLARGINE (*BKC) 100 UNITS/ML 20 UNITS SUB-Q (12:17)
--- NOTE | 2022-05-05 12:59 | PCNFU ---
Nutrition Follow-Up Complete: Inadequate Oral Intake as related to diarrhea as evidenced by poor po intake reported/weight loss. Goal:Adequate Intake of at least 75% of meals/supplemens - Goal being met. Continue with same goal Pt current nutrition is Heart healthy diet. Ensure Compact BID intakes 100% meals and supplements. Nutrition recommendation: Continue current diet orders and supplements Last recorded weight is 108.2 kg. No weight loss since admission Bowel Motility: +5 BMs 05/04/22 Labs Reviewed: Hgb 8.7, Hct 27, Na 134, BUN 75, Cr 1.7, Glu 292 Meds Noted: Novolog, Lantus, Zofran Skin: L buttock, not pressure Additional Notes: Intakes are good. Off pressors. Drinking supplements. Continue to monitor. RD will monitor every 7 days.
--- NOTE | 2022-05-05 13:08 | PM.PNNEP ---
Progress Note: A&P Assessment and Plan (1) AGUILAR (acute kidney injury): Code(s): N17.9 - Acute kidney failure, unspecified Status: Acute Assessment and Plan: resolving baseline creatinine normally runs ~ 1.0 - 1.3mg/dl suspect multifactorial etiology: obstructive uropathy ATN (likely reason for slow recovery) pre-renal factors hemodynamic instability/hypotension BPH infection diuretics + Entresto prior to admission evaluation to date: imaging with bilateral hydronephrosis CPK mildly elevated (but not likely to affect kidney function) urine electrolytes non-prerenal kincaid catheter in place repeat renal ultrasound (on 05/02) with mild bilateral hydronephrosis on oral bicarb - CO2 is better than on admission. follow repeat labs and UOP (2) Septic shock: Code(s): A41.9 - Sepsis, unspecified organism; R65.21 - Severe sepsis with septic shock Status: Acute Assessment and Plan: resolving presumably due to UTI urine shows E Coli blood cultures negative to date so far on antibiotics (3) Acute hyperkalemia: Code(s): E87.5 - Hyperkalemia Status: Acute Assessment and Plan: resolved (4) UTI (urinary tract infection): Code(s): N39.0 - Urinary tract infection, site not specified Status: Acute Assessment and Plan: UA consistent with this urine culture with E.coli on antibiotics kincaid in place (5) Diarrhea: Code(s): R19.7 - Diarrhea, unspecified Status: Acute Assessment and Plan: better/if not resolved chronic issue and reportedly due to chemotherapy CT imaging of abd/pelvis noted C. diff toxin assay negative on immodium PRN (6) Atrial fibrillation: Qualifiers: Atrial fibrillation type: unspecified chronic Qualified Code(s): I48.20 - Chronic atrial fibrillation, unspecified Code(s): I48.91 - Unspecified atrial fibrillation Status: Chronic Assessment and Plan: resuming cardizem and metoprolol as tolerated rate control strategy holding xarelto due to hematuria Cardiology following Will continue to follow. Subjective Date/time seen: 05/05/22 13:08 Appears to be making slow and steady progress since transfer out of the ICU; renal function continues to improve with adequate urine output although hematuria noted; no apparent distress noted; no acute issues/events overnight or earlier this AM. Exam Narrative: General: elderly male in NAD Heart: normal S1 and S2; IRRR Lungs: clear to auscultation Abdomen: soft, nontender, nondistended, positive bowel sounds Extremities: no cyanosis or clubbing; no edema Skin: warm and intact Objective Data Vital Signs Vital Signs: Vital Signs Temp Pulse Resp BP Pulse Ox O2 Del Method 05/05/22 12:00 99 Room Air 05/05/22 08:00 99 Room Air 05/05/22 16:00 78 05/05/22 14:00 87 05/05/22 12:00 103 H 05/05/22 16:00 98.2 F 80 16 107/53 L 99 05/05/22 12:15 91 05/05/22 11:57 98.4 F 98 20 107/46 L 99 05/05/22 10:00 96 05/05/22 08:00 93 05/05/22 10:05 91 05/05/22 08:00 98.4 F 93 16 115/54 L 98 05/05/22 04:00 76 05/05/22 04:00 Room Air 05/05/22 03:38 98.2 F 71 20 103/62 100 05/05/22 00:00 78 05/05/22 00:00 Room Air 05/04/22 23:22 97.4 F L 82 20 100/66 99 05/04/22 20:00 80 05/04/22 20:00 Room Air 05/04/22 20:00 97.8 F 76 20 105/49 L 99 Intake/Output Intake/Output: Intake & Output 05/02/22 05/03/22 05/04/22 05/05/22 23:59 23:59 23:59 23:59 Intake Total 2780 1420 1260 1660 Output Total 3250 2500 1800 2600 Balance -580 -1359 -540 -940 Meds/Results Medications: Active Medications Generic Name Dose Route Start Last Admin Trade Name Freq PRN Reason Stop Dose Admin Acetaminophen 650 mg 04/27/22 20:06 05/02/22 08:23 Acetamin
--- NOTE | 2022-05-05 13:08 | P.PNNP_ITS ---
Progress Note: A&P Assessment and Plan (1) AGUILAR (acute kidney injury): Code(s): N17.9 - Acute kidney failure, unspecified Status: Acute Assessment and Plan: * resolving * baseline creatinine normally runs ~ 1.0 - 1.3mg/dl * suspect multifactorial etiology: * obstructive uropathy * ATN (likely reason for slow recovery) * pre-renal factors * hemodynamic instability/hypotension * BPH * infection * diuretics + Entresto prior to admission * evaluation to date: * imaging with bilateral hydronephrosis * CPK mildly elevated (but not likely to affect kidney function) * urine electrolytes non-prerenal * kincaid catheter in place * repeat renal ultrasound (on 05/02) with mild bilateral hydronephrosis * on oral bicarb - CO2 is better than on admission. * follow repeat labs and UOP (2) Septic shock: Code(s): A41.9 - Sepsis, unspecified organism; R65.21 - Severe sepsis with septic shock Status: Acute Assessment and Plan: * resolving * presumably due to UTI * urine shows E Coli * blood cultures negative to date so far * on antibiotics (3) Acute hyperkalemia: Code(s): E87.5 - Hyperkalemia Status: Acute Assessment and Plan: * resolved (4) UTI (urinary tract infection): Code(s): N39.0 - Urinary tract infection, site not specified Status: Acute Assessment and Plan: * UA consistent with this * urine culture with E.coli * on antibiotics * kincaid in place (5) Diarrhea: Code(s): R19.7 - Diarrhea, unspecified Status: Acute Assessment and Plan: * better/if not resolved * chronic issue and reportedly due to chemotherapy * CT imaging of abd/pelvis noted * C. diff toxin assay negative * on immodium PRN (6) Atrial fibrillation: Qualifiers: Atrial fibrillation type: unspecified chronic Qualified Code(s): I48.20 - Chronic atrial fibrillation, unspecified Code(s): I48.91 - Unspecified atrial fibrillation Status: Chronic Assessment and Plan: * resuming cardizem and metoprolol as tolerated * rate control strategy * holding xarelto due to hematuria * Cardiology following Will continue to follow. Subjective Date/time seen: 05/05/22 13:08 Appears to be making slow and steady progress since transfer out of the ICU; renal function continues to improve with adequate urine output although hematuria noted; no apparent distress noted; no acute issues/events overnight or earlier this AM. Exam Narrative: General: elderly male in NAD Heart: normal S1 and S2; IRRR Lungs: clear to auscultation Abdomen: soft, nontender, nondistended, positive bowel sounds Extremities: no cyanosis or clubbing; no edema Skin: warm and intact Objective Data Vital Signs Vital Signs: Vital Signs Temp Pulse Resp BP Pulse Ox O2 Del Method 05/05/22 12:00 99 Room Air 05/05/22 08:00 99 Room Air 05/05/22 16:00 78 05/05/22 14:00 87 05/05/22 12:00 103 H 05/05/22 16:00 98.2 F 80 16 107/53 L 99 05/05/22 12:15 91 05/05/22 11:57 98.4 F 98 20 107/46 L 99 05/05/22 10:00 96 05/05/22 08:00 93 05/05/22 10:05 91 05/05/22 08:00 98.4 F 93 16 115/54 L 98 05/05/22
--- NOTE | 2022-05-05 13:50 | PM.IMPN ---
Progress Note: A&P Assessment and Plan (1) Metastatic disease: Code(s): C79.9 - Secondary malignant neoplasm of unspecified site Status: Acute Assessment and Plan: Colon cancer Status post chemotherapy Follow-up with Heme-Onc as outpatient Last chemotherapy was 2 weeks ago prior to admission (2) Colon cancer: Code(s): C18.9 - Malignant neoplasm of colon, unspecified Status: Chronic Assessment and Plan: Follow-up with Heme-Onc as outpatient Currently on chemotherapy (3) Acute kidney injury: Code(s): N17.9 - Acute kidney failure, unspecified Status: Acute Assessment and Plan: Admission creatinine of 6.2. 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 Was placed IV amiodarone while in the ICU Has been transition to metoprolol and Cardizem On Xarelto for anticoagulation (7) Gout: Code(s): M10.9 - Gout, unspecified Status: Chronic Assessment and Plan: Allopurinol (8) Congestive heart failure: Qualifiers: Heart failure type: diastolic Heart failure chronicity: chronic Qualified Code(s): I50.32 - Chronic diastolic (congestive) heart failure Code(s): I50.9 - Heart failure, unspecified Status: Chronic Assessment and Plan: Diuretics on hold due to septic shock (9) Essential hypertension: Code(s): I10 - Essential (primary) hypertension Status: Acute Assessment and Plan: Blood pressure medication on hold due to septic shock (10) Hyperkalemia: Code(s): E87.5 - Hyperkalemia Status: Acute Assessment and Plan: IV hydration Patient on bicarb drip This has resolved (11) Hyponatremia: Code(s): E87.1 - Hypo-osmolality and hyponatremia Status: Acute Assessment and Plan: Most likely related to dehydration IV fluid monitor (12) Diarrhea: Code(s): R19.7 - Diarrhea, unspecified Status: Acute Assessment and Plan: Associated with hypotension give IV fluid This is resolved C diff came back negative (13) UTI (urinary tract infection): Code(s): N39.0 - Urinary tract infection, site not specified Status: Acute Assessment and Plan: IV antibiotics ESBL E coli in culture On imipenem start date 04/30/2022 Subjective Date/time seen: 05/05/22 13:50 Interval history: Patient presented with septic shock acute kidney injury UTI and AFib with RVR was in the ICU requiring vasopressors. Now has been transition to IMU. Discussed with the nursing staff. Patient doing well. Has some sore spot in her his bottom with open skin tear. With some bleeding earlier today. Chua in place with hematuria Review of Systems Review of Systems: All systems reviewed & are unremarkable except as noted in HPI and below (HPI) Exam Narrative: elderly frail chronically ill sitting on the chair not in acute distress Patient is comfortable, NA
[2022-05-05 16:33] LABS: Glucose Point of Care 173 mg/dl (65-105)
[2022-05-05 20:18] LABS: Glucose Point of Care 249 mg/dl (65-105)
[2022-05-06] VITALS (10 sets, daily range): BP systolic 92–102; BP diastolic 51–62; PULSE 62–85; RESP 14–24; TEMP 36.4–36.7; O2SAT 99–100
[2022-05-06] MEDS: CENTRAL LINE FLUSH 10 ML IV PUSH ×3 (05:21→20:16)
[2022-05-06 06:17] LABS: Hematocrit 27.2 % (42.0-52.0); Hemoglobin 8.8 g/dL (14.0-18.0); Mean Corpuscular HGB Conc 32.4 g/dl (32-36); Mean Corpuscular Hemoglobin 31.5 pg (26-34); Mean Corpuscular Volume 97.5 fl (80-100); Mean Platelet Volume 9.8 fl (7.4-10.4); Platelet Count Result 182 k/mm3 (150-375); Red Blood Count 2.79 M/mm3 (4.6-6.20); Red Cell Distribution Width 18.6 % (11.5-14.5); White Blood Count 13.4 K/mm3 (4.5-10.0)
[2022-05-06 06:28] LABS: Anion Gap 5 mmol/L (8-16); Blood Urea Nitrogen 65 mg/dL (9-20); Calcium 8.1 mg/dL (8.4-10.2); Carbon Dioxide 22 mmol/L (22-30); Chloride 110 mmol/L (98-107); Estimated CRCL calculation 50 ml/min; Estimated Glomerular Filt Rate 46; Glucose 77 mg/dL (65-110); Magnesium 1.9 mg/dL (1.6-2.3); Potassium 4.4 mmol/L (3.4-5.0); Sodium 137 mmol/L (137-145)
[2022-05-06 07:37] LABS: Glucose Point of Care 74 mg/dl (65-105)
[2022-05-06] MEDS: allopurinoL 300 MG TABLET PO (08:43)
[2022-05-06] MEDS: FINASTERIDE 5 MG TABLET PO (08:43)
[2022-05-06] MEDS: INSULIN GLARGINE (*BKC) 100 UNITS/ML 20 UNITS SUB-Q (08:46)
[2022-05-06] MEDS: METOPROLOL SUCCINATE EXT REL 100 MG TABCR PO (09:18)
[2022-05-06] MEDS: SODIUM BICARBONATE TAB 650 MG TABLET PO ×2 (09:58→16:35)
--- NOTE | 2022-05-06 10:05 | PM.PNCARD ---
Progress Note: A&P Assessment and Plan (1) Atrial fibrillation with rapid ventricular response: Code(s): I48.91 - Unspecified atrial fibrillation Status: Acute Assessment and Plan: Transitioned from IV Amiodarone to home regimen of Diltiazem and Metoprolol. Metoprolol tartrate transitioned to succinate form. Although patient has LV systolic dysfunction, he was tolerating Dilitazem prior to admission and was not hemodynamically stable. Off anticoagulation due to hematuria. Increased Metoprolol to 100mg. Patient is now rate controlled. Continue with Metoprolol and Diltiazem. If low blood pressure becomes an issue with Metoprolol and Diltiazem, may consider backing off on dose of Diltazem. (2) Cardiomyopathy: Code(s): I42.9 - Cardiomyopathy, unspecified Status: Acute Assessment and Plan: History mild LV systolic dysfunction EF 45-50%. Continue beta dinora. Will hold off on restarting Entresto as I do not think his blood pressure will tolerate it at this point and given his AGUILAR. GDMT can be done as outpatient. (3) AGUILAR (acute kidney injury): Code(s): N17.9 - Acute kidney failure, unspecified Status: Acute Assessment and Plan: Nephrology following along. Hold off on resuming Entresto due to AGUILAR. Will work on GDMT as an outpatient. Subjective Date/time seen: 05/06/22 10:05 Interval history: Reason for visit: Atrial fibrillation with RVR HPI: Patient is a complicated 71-year-old male with past medical history significant for stage IV colon cancer, longstanding persistent atrial fibrillation on anticoagulation, history of? heart failure with mildly reduced EF, diabetes mellitus, thrombocytopenia, who is transferred [facility] ICU for weakness and worsening diarrhea.? Diarrhea thought to be secondary to chemotherapy but he also admitted to poor oral intake and feeling weaker.? In the emergency department h was hypotensive with acute renal failure Creatinine of 6.2 initially now 2.3 after being started on IV fluids and pressors secondary to E coli UTI. stress dose steroids have been discontinued he remains on imipenem.? Patient had moderate bilateral hydronephrosis now with Chua catheter.? his renal function has improved he was weaned off Levophed.? He developed atrial fibrillation with rapid ventricular response necessitating initiation of IV amiodarone infusion with better heart rate control with intermittent RVR episodes.? Patient has a history of RVR particular the acute illness refractory but generally controlled on oral diltiazem and metoprolol.? Patient denies chest pain, shortness of breath or palpitations at this time.? States she is feeling better although somewhat weak.? Appetite improving.? He inquired about his medications was informed that been held secondary to his low blood pressures earlier this hospitalization.? Xarelto has been on hold secondary to coagulopathy and ongoing hematuria. Patient has remained afebrile.? No noted bright red blood per rectum or melena.? No hemoptysis.? Diarrhea improving. Date of service 05/03: Chronic atrial fibrillation and LV systolic dysfunction also unfortunately with metastatic/stage IV colon cancer.? Patient states he feels better today with no specific complaints he was actually up ambulating with PT this morning.? Telemetry demonstrates AF with RVR despite IV amiodarone treatment. Date of service 05/04: Patient reports he is overall feeling well. No shortness of breath or chest pain. Date of service 05/05: No acute issues overnight. Patient without any complaints this morning. Sitting up in chair at bedside. Date of service 05/06: No issues overnight. Patient states he feels fine. HR is now controlled. Review of Systems Review of Systems: 8 point ROS obtained. Negative, unless stated in HPI. Exam Const: Other: Overweight chronically ill-appearing man no distress HENMT: Mouth: Yes moist mucous membranes Eyes: Gene
[2022-05-06 11:58] LABS: Glucose Point of Care 205 mg/dl (65-105)
[2022-05-06] MEDS: INSULIN ASPART (*BKC) 100 UNITS/ML SUB-Q (12:10)
--- NOTE | 2022-05-06 13:18 | P.PNNP_ITS ---
Progress Note: A&P Assessment and Plan (1) AGUILAR (acute kidney injury): Code(s): N17.9 - Acute kidney failure, unspecified Status: Acute Assessment and Plan: * resolving * baseline creatinine normally runs ~ 1.0 - 1.3mg/dl * suspect multifactorial etiology: * obstructive uropathy * ATN (likely reason for slow recovery) * pre-renal factors * hemodynamic instability/hypotension * BPH * infection * diuretics + Entresto prior to admission * evaluation to date: * imaging with bilateral hydronephrosis * CPK mildly elevated (but not likely to affect kidney function) * urine electrolytes non-prerenal * kincaid catheter in place * repeat renal ultrasound (on 05/02) with mild bilateral hydronephrosis * on oral bicarb - CO2 is better than on admission. * follow repeat labs and UOP (2) Septic shock: Code(s): A41.9 - Sepsis, unspecified organism; R65.21 - Severe sepsis with septic shock Status: Acute Assessment and Plan: * resolving * presumably due to UTI * urine shows E Coli (ESBL) * blood cultures negative to date so far * on antibiotics (3) Acute hyperkalemia: Code(s): E87.5 - Hyperkalemia Status: Acute Assessment and Plan: * resolved (4) UTI (urinary tract infection): Code(s): N39.0 - Urinary tract infection, site not specified Status: Acute Assessment and Plan: * UA consistent with this * urine culture with E.coli (ESBL) * on antibiotics * kincaid in place (5) Diarrhea: Code(s): R19.7 - Diarrhea, unspecified Status: Acute Assessment and Plan: * better/if not resolved * chronic issue and reportedly due to chemotherapy * CT imaging of abd/pelvis noted * C. diff toxin assay negative * on immodium PRN (6) Atrial fibrillation: Qualifiers: Atrial fibrillation type: unspecified chronic Qualified Code(s): I48.20 - Chronic atrial fibrillation, unspecified Code(s): I48.91 - Unspecified atrial fibrillation Status: Chronic Assessment and Plan: * resuming cardizem and metoprolol as tolerated * rate control strategy * holding xarelto due to hematuria * Cardiology following Will continue to follow. Subjective Date/time seen: 05/06/22 13:18 Slow and steady improvement noted although still remains weak/fatigued and BP still on the soft side; otherwise; no acute distress noted at the time of my visit. Exam Narrative: General: elderly male in NAD Heart: normal S1 and S2; IRRR Lungs: clear to auscultation Abdomen: soft, nontender, nondistended, positive bowel sounds Extremities: no cyanosis or clubbing; no edema Skin: no rash Objective Data Vital Signs Vital Signs: Vital Signs Temp Pulse Resp BP Pulse Ox O2 Del Method 05/06/22 12:00 97.6 F 73 24 H 100/54 L 99 05/06/22 10:00 83 05/06/22 08:00 85 99 Room Air 05/06/22 08:00 80 05/06/22 09:18 84 05/06/22 08:00 98.0 F 62 24 H 92/51 L 99 05/06/22 04:00 97.6 F 79 16 100/56 L 99 05/06/22 04:00 85 05/06/22 04:00 85 99 Room Air 05/06/22 00:00 72 05/06/22 00:00 99 Room Air 05/05/22 23:57 97.2 F L 75 16 104/65 100 05/05/22 20:00 68 05/05/22 20:00
--- NOTE | 2022-05-06 13:18 | PM.PNNEP ---
Progress Note: A&P Assessment and Plan (1) AGUILAR (acute kidney injury): Code(s): N17.9 - Acute kidney failure, unspecified Status: Acute Assessment and Plan: resolving baseline creatinine normally runs ~ 1.0 - 1.3mg/dl suspect multifactorial etiology: obstructive uropathy ATN (likely reason for slow recovery) pre-renal factors hemodynamic instability/hypotension BPH infection diuretics + Entresto prior to admission evaluation to date: imaging with bilateral hydronephrosis CPK mildly elevated (but not likely to affect kidney function) urine electrolytes non-prerenal kincaid catheter in place repeat renal ultrasound (on 05/02) with mild bilateral hydronephrosis on oral bicarb - CO2 is better than on admission. follow repeat labs and UOP (2) Septic shock: Code(s): A41.9 - Sepsis, unspecified organism; R65.21 - Severe sepsis with septic shock Status: Acute Assessment and Plan: resolving presumably due to UTI urine shows E Coli (ESBL) blood cultures negative to date so far on antibiotics (3) Acute hyperkalemia: Code(s): E87.5 - Hyperkalemia Status: Acute Assessment and Plan: resolved (4) UTI (urinary tract infection): Code(s): N39.0 - Urinary tract infection, site not specified Status: Acute Assessment and Plan: UA consistent with this urine culture with E.coli (ESBL) on antibiotics kincaid in place (5) Diarrhea: Code(s): R19.7 - Diarrhea, unspecified Status: Acute Assessment and Plan: better/if not resolved chronic issue and reportedly due to chemotherapy CT imaging of abd/pelvis noted C. diff toxin assay negative on immodium PRN (6) Atrial fibrillation: Qualifiers: Atrial fibrillation type: unspecified chronic Qualified Code(s): I48.20 - Chronic atrial fibrillation, unspecified Code(s): I48.91 - Unspecified atrial fibrillation Status: Chronic Assessment and Plan: resuming cardizem and metoprolol as tolerated rate control strategy holding xarelto due to hematuria Cardiology following Will continue to follow. Subjective Date/time seen: 05/06/22 13:18 Slow and steady improvement noted although still remains weak/fatigued and BP still on the soft side; otherwise; no acute distress noted at the time of my visit. Exam Narrative: General: elderly male in NAD Heart: normal S1 and S2; IRRR Lungs: clear to auscultation Abdomen: soft, nontender, nondistended, positive bowel sounds Extremities: no cyanosis or clubbing; no edema Skin: no rash Objective Data Vital Signs Vital Signs: Vital Signs Temp Pulse Resp BP Pulse Ox O2 Del Method 05/06/22 12:00 97.6 F 73 24 H 100/54 L 99 05/06/22 10:00 83 05/06/22 08:00 85 99 Room Air 05/06/22 08:00 80 05/06/22 09:18 84 05/06/22 08:00 98.0 F 62 24 H 92/51 L 99 05/06/22 04:00 97.6 F 79 16 100/56 L 99 05/06/22 04:00 85 05/06/22 04:00 85 99 Room Air 05/06/22 00:00 72 05/06/22 00:00 99 Room Air 05/05/22 23:57 97.2 F L 75 16 104/65 100 05/05/22 20:00 68 05/05/22 20:00 99 Room Air 05/05/22 20:00 96.9 F L 73 16 107/58 L 100 05/05/22 18:00 78 05/05/22 16:00 99 Room Air 05/05/22 16:00 78 05/05/22 14:00 87 05/05/22 16:00 98.2 F 80 16 107/53 L 99 Intake/Output Intake/Output: Intake & Output 05/03/22 05/04/22 05/05/22 05/06/22 23:59 23:59 23:59 23:59 Intake Total 1420 1260 1860 1220 Output Total 2500 1800 2600 1800 Balance -2737 -540 -740 -580 Meds/Results Medications: Active Medications Generic Name Dose Route Start Last Admin Trade Name Freq PRN Reason Stop Dose Admin Acetaminophen 650 mg 04/27/22 20:06 05/02/22 08:23 Acetaminophen 325 Mg Tablet PO 650 mg Q4H PRN Administration Mild Pain (1-3) or Fe
--- NOTE | 2022-05-06 16:47 | PM.IMPN ---
Progress Note: A&P Assessment and Plan (1) Metastatic disease: Code(s): C79.9 - Secondary malignant neoplasm of unspecified site Status: Acute Assessment and Plan: Colon cancer Status post chemotherapy Follow-up with Heme-Onc as outpatient Last chemotherapy was 2 weeks ago prior to admission (2) Colon cancer: Code(s): C18.9 - Malignant neoplasm of colon, unspecified Status: Chronic Assessment and Plan: Follow-up with Heme-Onc as outpatient Currently on chemotherapy (3) Acute kidney injury: Code(s): N17.9 - Acute kidney failure, unspecified Status: Acute Assessment and Plan: Admission creatinine of 6.2. 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 Was placed IV amiodarone while in the ICU Has been transition to metoprolol and Cardizem On Xarelto for anticoagulation (7) Gout: Code(s): M10.9 - Gout, unspecified Status: Chronic Assessment and Plan: Allopurinol (8) Congestive heart failure: Qualifiers: Heart failure type: diastolic Heart failure chronicity: chronic Qualified Code(s): I50.32 - Chronic diastolic (congestive) heart failure Code(s): I50.9 - Heart failure, unspecified Status: Chronic Assessment and Plan: Diuretics on hold due to septic shock (9) Essential hypertension: Code(s): I10 - Essential (primary) hypertension Status: Acute Assessment and Plan: Blood pressure medication on hold due to septic shock (10) Hyperkalemia: Code(s): E87.5 - Hyperkalemia Status: Acute Assessment and Plan: IV hydration Patient on bicarb drip This has resolved on oral bicarb (11) Hyponatremia: Code(s): E87.1 - Hypo-osmolality and hyponatremia Status: Acute Assessment and Plan: Most likely related to dehydration IV fluid monitor (12) Diarrhea: Code(s): R19.7 - Diarrhea, unspecified Status: Acute Assessment and Plan: Associated with hypotension give IV fluid This is resolved C diff came back negative (13) UTI (urinary tract infection): Code(s): N39.0 - Urinary tract infection, site not specified Status: Acute Assessment and Plan: IV antibiotics ESBL E coli in culture On imipenem start date 04/30/2022 Leukocytosis persist and plan 10 days course of treatment. Switch imipenem to ertapenem Subjective Date/time seen: 05/06/22 16:47 Interval history: Patient presented with septic shock acute kidney injury UTI and AFib with RVR was in the ICU requiring vasopressors. Now has been transition to IMU. Discussed with the nursing staff. Patient doing well. Has some sore spot in her his bottom with open skin tear. With some bleeding earlier today. Chua in place with hematuria 05/06/2022 no overnight events. Feels well denies any complain generally weak. Hematuria persist in Chua catheter Review of Systems
[2022-05-06 17:25] LABS: Glucose Point of Care 123 mg/dl (65-105)
[2022-05-06 20:28] LABS: Glucose Point of Care 184 mg/dl (65-105)
[2022-05-07] VITALS (12 sets, daily range): BP systolic 94–111; BP diastolic 52–63; PULSE 60–86; RESP 16–24; TEMP 36.1–36.8; O2SAT 92–100
[2022-05-07 06:49] LABS: Hematocrit 27.7 % (42.0-52.0); Hemoglobin 8.8 g/dL (14.0-18.0); Mean Corpuscular HGB Conc 31.8 g/dl (32-36); Mean Corpuscular Hemoglobin 31.4 pg (26-34); Mean Corpuscular Volume 98.9 fl (80-100); Mean Platelet Volume 9.6 fl (7.4-10.4); Platelet Count Result 186 k/mm3 (150-375); Red Cell Distribution Width 18.6 % (11.5-14.5); White Blood Count 11.4 K/mm3 (4.5-10.0)
[2022-05-07] MEDS: ERTAPENEM 1 GM/NS 50 ML 1 GM/50 ML BAG IVPB (06:49)
[2022-05-07] MEDS: CENTRAL LINE FLUSH 10 ML IV PUSH ×3 (06:50→22:30)
[2022-05-07 07:06] LABS: Anion Gap 5 mmol/L (8-16); Blood Urea Nitrogen 56 mg/dL (9-20); Calcium 8.1 mg/dL (8.4-10.2); Carbon Dioxide 23 mmol/L (22-30); Chloride 108 mmol/L (98-107); Estimated CRCL calculation 62 ml/min; Estimated Glomerular Filt Rate 60; Glucose 95 mg/dL (65-110); Magnesium 1.9 mg/dL (1.6-2.3); Potassium 4.6 mmol/L (3.4-5.0); Sodium 136 mmol/L (137-145)
[2022-05-07 08:34] LABS: Glucose Point of Care 105 mg/dl (65-105)
--- NOTE | 2022-05-07 11:30 | P.PNNP_ITS ---
Progress Note: A&P Assessment and Plan (1) AUGILAR (acute kidney injury): Code(s): N17.9 - Acute kidney failure, unspecified Status: Acute Assessment and Plan: * resolving * baseline creatinine normally runs ~ 1.0 - 1.3mg/dl * suspect multifactorial etiology: * obstructive uropathy * ATN (likely reason for slow recovery) * pre-renal factors * hemodynamic instability/hypotension * BPH * infection * diuretics + Entresto prior to admission * evaluation to date: * imaging with bilateral hydronephrosis * CPK mildly elevated (but not likely to affect kidney function) * urine electrolytes non-prerenal * kincaid catheter in place * repeat renal ultrasound (on 05/02) with mild bilateral hydronephrosis * on oral bicarb - CO2 is better than on admission. * follow repeat labs and UOP (2) Septic shock: Code(s): A41.9 - Sepsis, unspecified organism; R65.21 - Severe sepsis with septic shock Status: Acute Assessment and Plan: * resolving * presumably due to UTI * urine shows E Coli (ESBL) * blood cultures negative to date so far * on antibiotics (3) Acute hyperkalemia: Code(s): E87.5 - Hyperkalemia Status: Acute Assessment and Plan: * resolved (4) UTI (urinary tract infection): Code(s): N39.0 - Urinary tract infection, site not specified Status: Acute Assessment and Plan: * UA consistent with this * urine culture with E.coli (ESBL) * on antibiotics * kincaid in place (5) Diarrhea: Code(s): R19.7 - Diarrhea, unspecified Status: Acute Assessment and Plan: * better/if not resolved * chronic issue and reportedly due to chemotherapy * CT imaging of abd/pelvis noted * C. diff toxin assay negative * on immodium PRN (6) Atrial fibrillation: Qualifiers: Atrial fibrillation type: unspecified chronic Qualified Code(s): I48.20 - Chronic atrial fibrillation, unspecified Code(s): I48.91 - Unspecified atrial fibrillation Status: Chronic Assessment and Plan: * resuming cardizem and metoprolol as tolerated * rate control strategy * holding xarelto due to hematuria * Cardiology following Not much else to add --will continue to follow intermittently. Subjective Date/time seen: 05/07/22 11:30 Still with issues related to hematuria but seems to be making slow and steady progress; working with therapy as tolerated as his major complaint is that of generalized weakness; no other issues/events overnight or earlier this AM. Exam Narrative: General: elderly male in NAD Heart: normal S1 and S2; IRRR Lungs: clear to auscultation Abdomen: soft, nontender, nondistended, positive bowel sounds Extremities: no cyanosis or clubbing; no edema Skin: no rash Objective Data Vital Signs Vital Signs: Vital Signs Temp Pulse Resp BP Pulse Ox O2 Del Method 05/07/22 11:27 81 05/07/22 08:00 97.7 F 75 16 106/53 L 99 05/07/22 05:55 98.2 F 66 18 94/53 L 98 05/07/22 04:00 84 05/07/22 03:38 99 Room Air 05/07/22 00:00 84 05/07/22 00:00 99 Room Air 05/07/22 00:00 97.6 F 77 16 111/63 92 05/06/22 20:00 71 05/06/22 20:00 99 Room Air 05/06/22 20:00 97.5 F L 64 14 102/62 100
--- NOTE | 2022-05-07 11:30 | PM.PNNEP ---
Progress Note: A&P Assessment and Plan (1) AGUILAR (acute kidney injury): Code(s): N17.9 - Acute kidney failure, unspecified Status: Acute Assessment and Plan: resolving baseline creatinine normally runs ~ 1.0 - 1.3mg/dl suspect multifactorial etiology: obstructive uropathy ATN (likely reason for slow recovery) pre-renal factors hemodynamic instability/hypotension BPH infection diuretics + Entresto prior to admission evaluation to date: imaging with bilateral hydronephrosis CPK mildly elevated (but not likely to affect kidney function) urine electrolytes non-prerenal kincaid catheter in place repeat renal ultrasound (on 05/02) with mild bilateral hydronephrosis on oral bicarb - CO2 is better than on admission. follow repeat labs and UOP (2) Septic shock: Code(s): A41.9 - Sepsis, unspecified organism; R65.21 - Severe sepsis with septic shock Status: Acute Assessment and Plan: resolving presumably due to UTI urine shows E Coli (ESBL) blood cultures negative to date so far on antibiotics (3) Acute hyperkalemia: Code(s): E87.5 - Hyperkalemia Status: Acute Assessment and Plan: resolved (4) UTI (urinary tract infection): Code(s): N39.0 - Urinary tract infection, site not specified Status: Acute Assessment and Plan: UA consistent with this urine culture with E.coli (ESBL) on antibiotics kincaid in place (5) Diarrhea: Code(s): R19.7 - Diarrhea, unspecified Status: Acute Assessment and Plan: better/if not resolved chronic issue and reportedly due to chemotherapy CT imaging of abd/pelvis noted C. diff toxin assay negative on immodium PRN (6) Atrial fibrillation: Qualifiers: Atrial fibrillation type: unspecified chronic Qualified Code(s): I48.20 - Chronic atrial fibrillation, unspecified Code(s): I48.91 - Unspecified atrial fibrillation Status: Chronic Assessment and Plan: resuming cardizem and metoprolol as tolerated rate control strategy holding xarelto due to hematuria Cardiology following Not much else to add --will continue to follow intermittently. Subjective Date/time seen: 05/07/22 11:30 Still with issues related to hematuria but seems to be making slow and steady progress; working with therapy as tolerated as his major complaint is that of generalized weakness; no other issues/events overnight or earlier this AM. Exam Narrative: General: elderly male in NAD Heart: normal S1 and S2; IRRR Lungs: clear to auscultation Abdomen: soft, nontender, nondistended, positive bowel sounds Extremities: no cyanosis or clubbing; no edema Skin: no rash Objective Data Vital Signs Vital Signs: Vital Signs Temp Pulse Resp BP Pulse Ox O2 Del Method 05/07/22 11:27 81 05/07/22 08:00 97.7 F 75 16 106/53 L 99 05/07/22 05:55 98.2 F 66 18 94/53 L 98 05/07/22 04:00 84 05/07/22 03:38 99 Room Air 05/07/22 00:00 84 05/07/22 00:00 99 Room Air 05/07/22 00:00 97.6 F 77 16 111/63 92 05/06/22 20:00 71 05/06/22 20:00 99 Room Air 05/06/22 20:00 97.5 F L 64 14 102/62 100 05/06/22 18:00 71 Intake/Output Intake/Output: Intake & Output 05/04/22 05/05/22 05/06/22 05/07/22 23:59 23:59 23:59 23:59 Intake Total 1260 1860 1660 650 Output Total 1800 2600 2800 700 Balance -540 -740 -1140 -50 Meds/Results Medications: Active Medications Generic Name Dose Route Start Last Admin Trade Name Freq PRN Reason Stop Dose Admin Acetaminophen 650 mg 04/27/22 20:06 05/02/22 08:23 Acetaminophen 325 Mg Tablet PO 650 mg Q4H PRN Administration Mild Pain (1-3) or Fever Allopurinol 300 mg 04/28/22 09:00 05/07/22 11:37 Allopurinol 300 Mg Tablet PO 300 mg DAILY SOCRATES Administration Dextrose 12.5 gm 04/29/22 10:18 Dextrose 50
[2022-05-07 11:36] LABS: Glucose Point of Care 179 mg/dl (65-105)
[2022-05-07] MEDS: FINASTERIDE 5 MG TABLET PO (11:37)
[2022-05-07] MEDS: SODIUM BICARBONATE TAB 650 MG TABLET PO (11:37)
[2022-05-07] MEDS: METOPROLOL SUCCINATE EXT REL 100 MG TABCR PO (11:37)
[2022-05-07] MEDS: allopurinoL 300 MG TABLET PO (11:37)
[2022-05-07] MEDS: INSULIN GLARGINE (*BKC) 100 UNITS/ML 20 UNITS SUB-Q (11:43)
--- NOTE | 2022-05-07 15:32 | PM.IMPN ---
Progress Note: A&P Assessment and Plan (1) Metastatic disease: Code(s): C79.9 - Secondary malignant neoplasm of unspecified site Status: Acute Assessment and Plan: Colon cancer Status post chemotherapy Follow-up with Heme-Onc as outpatient Last chemotherapy was 2 weeks ago prior to admission (2) Colon cancer: Code(s): C18.9 - Malignant neoplasm of colon, unspecified Status: Chronic Assessment and Plan: Follow-up with Heme-Onc as outpatient Currently on chemotherapy (3) Acute kidney injury: Code(s): N17.9 - Acute kidney failure, unspecified Status: Acute Assessment and Plan: Admission creatinine of 6.2. 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 Was placed IV amiodarone while in the ICU Has been transition to metoprolol and Cardizem On Xarelto for anticoagulation which has been on hold due to hematuria (7) Gout: Code(s): M10.9 - Gout, unspecified Status: Chronic Assessment and Plan: Allopurinol (8) Congestive heart failure: Qualifiers: Heart failure type: diastolic Heart failure chronicity: chronic Qualified Code(s): I50.32 - Chronic diastolic (congestive) heart failure Code(s): I50.9 - Heart failure, unspecified Status: Chronic Assessment and Plan: Diuretics on hold due to septic shock (9) Essential hypertension: Code(s): I10 - Essential (primary) hypertension Status: Acute Assessment and Plan: Blood pressure medication on hold due to septic shock Blood pressure still lowish normal (10) Hyperkalemia: Code(s): E87.5 - Hyperkalemia Status: Acute Assessment and Plan: IV hydration Patient on bicarb drip This has resolved on oral bicarb. will stop Her bicarb (11) Hyponatremia: Code(s): E87.1 - Hypo-osmolality and hyponatremia Status: Acute Assessment and Plan: Most likely related to dehydration IV fluid monitor (12) Diarrhea: Code(s): R19.7 - Diarrhea, unspecified Status: Acute Assessment and Plan: Associated with hypotension give IV fluid This is resolved C diff came back negative (13) UTI (urinary tract infection): Code(s): N39.0 - Urinary tract infection, site not specified Status: Acute Assessment and Plan: IV antibiotics ESBL E coli in culture On imipenem start date 04/30/2022 Leukocytosis persist and plan 10 days course of treatment. Switch imipenem to ertapenem Subjective Date/time seen: 05/07/22 15:32 Interval history: Patient presented with septic shock acute kidney injury UTI and AFib with RVR was in the ICU requiring vasopressors. Now has been transition to IMU. Discussed with the nursing staff. Patient doing well. Has some sore spot in her his bottom with open skin tear. With some bleeding earlier today. Chua in place with hematuria 05/06/2022 no overnight events. Feels
[2022-05-07 16:36] LABS: Glucose Point of Care 120 mg/dl (65-105)
--- NOTE | 2022-05-07 18:26 | PC.NURSE ---
This patient, Donaldo Booker, was transferred to [facility] on 05/07/22 at 1810. Personal belongings sent with patient. Appropriate documentation sent with patient.
--- NOTE | 2022-05-07 18:29 | PC.NURSE ---
This patient, Donaldo Booker, was received from IMU on 05/07/22 at 1820 . Patient/family oriented to unit policies and routines
[2022-05-07 19:32] LABS: Glucose Point of Care 250 mg/dl (65-105)
[2022-05-08] VITALS (11 sets, daily range): BP systolic 106–113; BP diastolic 56–69; PULSE 68–106; RESP 14–20; TEMP 35.9–36.6; O2SAT 100
[2022-05-08 02:34] LABS: Hematocrit 26.7 % (42.0-52.0); Hemoglobin 8.6 g/dL (14.0-18.0); Mean Corpuscular HGB Conc 32.2 g/dl (32-36); Mean Corpuscular Hemoglobin 31.4 pg (26-34); Mean Corpuscular Volume 97.4 fl (80-100); Mean Platelet Volume 9.8 fl (7.4-10.4); Platelet Count Result 175 k/mm3 (150-375); Red Blood Count 2.74 M/mm3 (4.6-6.20); Red Cell Distribution Width 18.5 % (11.5-14.5); White Blood Count 9.7 K/mm3 (4.5-10.0)
[2022-05-08 02:45] LABS: Anion Gap 1 mmol/L (8-16); Blood Urea Nitrogen 49 mg/dL (9-20); Calcium 8.1 mg/dL (8.4-10.2); Carbon Dioxide 26 mmol/L (22-30); Chloride 106 mmol/L (98-107); Estimated CRCL calculation 62 ml/min; Estimated Glomerular Filt Rate 60; Glucose 89 mg/dL (65-110); Potassium 4.9 mmol/L (3.4-5.0); Sodium 133 mmol/L (137-145)
[2022-05-08] MEDS: ERTAPENEM 1 GM/NS 50 ML 1 GM/50 ML BAG IVPB (05:24)
[2022-05-08] MEDS: CENTRAL LINE FLUSH 10 ML IV PUSH ×3 (05:25→20:36)
[2022-05-08 07:51] LABS: Glucose Point of Care 82 mg/dl (65-105)
[2022-05-08] MEDS: INSULIN GLARGINE (*BKC) 100 UNITS/ML 20 UNITS SUB-Q (09:26)
[2022-05-08] MEDS: FINASTERIDE 5 MG TABLET PO (09:26)
[2022-05-08] MEDS: allopurinoL 300 MG TABLET PO (09:26)
[2022-05-08] MEDS: METOPROLOL SUCCINATE EXT REL 100 MG TABCR PO (09:27)
[2022-05-08 12:01] LABS: Glucose Point of Care 190 mg/dl (65-105)
--- NOTE | 2022-05-08 15:41 | PM.IMPN ---
Progress Note: A&P Assessment and Plan (1) Metastatic disease: Code(s): C79.9 - Secondary malignant neoplasm of unspecified site Status: Acute Assessment and Plan: Colon cancer Status post chemotherapy Follow-up with Heme-Onc as outpatient Last chemotherapy was 2 weeks ago prior to admission (2) Colon cancer: Code(s): C18.9 - Malignant neoplasm of colon, unspecified Status: Chronic Assessment and Plan: Follow-up with Heme-Onc as outpatient Currently on chemotherapy (3) Acute kidney injury: Code(s): N17.9 - Acute kidney failure, unspecified Status: Acute Assessment and Plan: Admission creatinine of 6.2. Baseline creatinine 1.3 Continues to improve Most likely multifactorial related to dehydration patient also has bilateral hydronephrosis probably related to chronic urine retention Chua catheter in place Nephrology consult Urine electrolyte Reviewed CT scan of the abdomen avoid nephrotoxic medication Mild hematuria still persist despite holding Xarelto. Will re-consult Urology (4) Venous insufficiency (chronic) (peripheral): Code(s): I87.2 - Venous insufficiency (chronic) (peripheral) Status: Acute Assessment and Plan: Keep leg elevated (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: Code(s): E11.59 - Type 2 diabetes mellitus with other circulatory complications Status: Chronic Assessment and Plan: Insulin sliding scale Hemoglobin A1c 7.1 On Lantus and lispro (6) Atrial fibrillation: Qualifiers: Atrial fibrillation type: unspecified chronic Qualified Code(s): I48.20 - Chronic atrial fibrillation, unspecified Code(s): I48.91 - Unspecified atrial fibrillation Status: Chronic Assessment and Plan: Presented with AFib with RVR. Was placed IV amiodarone while in the ICU Has been transition to metoprolol and Cardizem On Xarelto for anticoagulation which has been on hold due to hematuria (7) Gout: Code(s): M10.9 - Gout, unspecified Status: Chronic Assessment and Plan: Allopurinol (8) Congestive heart failure: Qualifiers: Heart failure type: diastolic Heart failure chronicity: chronic Qualified Code(s): I50.32 - Chronic diastolic (congestive) heart failure Code(s): I50.9 - Heart failure, unspecified Status: Chronic Assessment and Plan: Diuretics on hold due to septic shock (9) Essential hypertension: Code(s): I10 - Essential (primary) hypertension Status: Acute Assessment and Plan: Blood pressure medication on hold due to septic shock Blood pressure still lowish normal (10) Hyperkalemia: Code(s): E87.5 - Hyperkalemia Status: Acute Assessment and Plan: IV hydration Patient on bicarb drip This has resolved on oral bicarb. Stopped bicarb (11) Hyponatremia: Code(s): E87.1 - Hypo-osmolality and hyponatremia Status: Acute Assessment and Plan: Most likely related to dehydration IV fluid monitor (12) Diarrhea: Code(s): R19.7 - Diarrhea, unspecified Status: Acute Assessment and Plan: Associated with hypotension give IV fluid This is resolved C diff came back negative (13) UTI (urinary tract infection): Code(s): N39.0 - Urinary tract infection, site not specified Status: Acute Assessment and Plan: IV antibiotics ESBL E coli in culture On imipenem start date 04/30/2022 Leukocytosis persist and plan 10 days course of treatment. Switch imipenem to ertapenem Subjective Date/time seen: 05/08/22 15:41 Interval history: Patient presented with septic shock acute kidney injury UTI and AFib with RVR was in the ICU requiring vasopressors. Now has been transition to IMU. Discussed with the nursing staff. Patient doing well. Has some sore spot in her his bottom with open skin tear. With some bleeding earlier today
[2022-05-08 16:55] LABS: Glucose Point of Care 171 mg/dl (65-105)
[2022-05-08 21:25] LABS: Glucose Point of Care 182 mg/dl (65-105)
[2022-05-09] VITALS (10 sets, daily range): BP systolic 87–103; BP diastolic 53–68; PULSE 57–100; RESP 16–18; TEMP 36.2–37.1; O2SAT 98–100
[2022-05-09] MEDS: CENTRAL LINE FLUSH 10 ML IV PUSH ×3 (05:28→20:40)
[2022-05-09 05:30] LABS: Hematocrit 26.9 % (42.0-52.0); Hemoglobin 8.6 g/dL (14.0-18.0); Mean Corpuscular Hemoglobin 31.4 pg (26-34); Mean Corpuscular Volume 98.2 fl (80-100); Mean Platelet Volume 9.9 fl (7.4-10.4); Platelet Count Result 187 k/mm3 (150-375); Red Blood Count 2.74 M/mm3 (4.6-6.20); White Blood Count 9.3 K/mm3 (4.5-10.0)
[2022-05-09] MEDS: ERTAPENEM 1 GM/NS 50 ML 1 GM/50 ML BAG IVPB (05:30)
[2022-05-09 05:41] LABS: Anion Gap 2 mmol/L (8-16); Blood Urea Nitrogen 49 mg/dL (9-20); Calcium 8.3 mg/dL (8.4-10.2); Carbon Dioxide 26 mmol/L (22-30); Chloride 102 mmol/L (98-107); Estimated CRCL calculation 60 ml/min; Estimated Glomerular Filt Rate 60; Glucose 79 mg/dL (65-110); Magnesium 1.9 mg/dL (1.6-2.3); Potassium 4.9 mmol/L (3.4-5.0); Sodium 130 mmol/L (137-145)
[2022-05-09] MEDS: METOPROLOL SUCCINATE EXT REL 100 MG TABCR PO (08:31)
[2022-05-09] MEDS: allopurinoL 300 MG TABLET PO (08:31)
[2022-05-09] MEDS: FINASTERIDE 5 MG TABLET PO (08:31)
[2022-05-09] MEDS: INSULIN GLARGINE (*BKC) 100 UNITS/ML 20 UNITS SUB-Q (08:36)
[2022-05-09 12:06] LABS: Glucose Point of Care 177 mg/dl (65-105)
--- NOTE | 2022-05-09 13:24 | WPDUROPN2 ---
Progress Note: A&P Assessment and Plan (1) Urinary retention: Code(s): R33.9 - Retention of urine, unspecified Status: Acute Assessment and Plan: continue kincaid continue flomax/ finasteride for now gfr has improved with treamtent of infection and kincaid (2) Hematuria of undiagnosed cause: Code(s): R31.9 - Hematuria, unspecified Status: Acute Assessment and Plan: uncertain etiology at this point, most likely due to kincaid rubbing large prostate given it has evolved over this hospital stay - can irrigate kincaid as needed and would ask nursing to do so qshift with 50 cc NS instilled via kincaid, aspirate to see if any clot returned, if aspirate with clot discard and repeat until clots clear, unable to do at bedside today as patient was in chair eating - obtain ct urogram - should have outpatient cystoscopy to ensure no other cause of lower tract hematuria such as bladder tumor, but suspect bleeding due to kincaid - keep kincaid well secured. Time Spent With Patient Time: 15 mins Subjective Subjective Date/Time Seen: 05/09/22 13:24 - urology called to re-evaluate patient due to hematuria in kincaid. timeline for developing hematuria unclear from notes, but remi urine in urology notes from time of initial consult. Urine in kincaid bag is red without clots, CT non-con 04/27/22 - no clear source of hematuria, Renal u/s 05/02/22 showed some improvement in hydro relative to CT after kincaid placed. Patient without major complaint, Exam Narrative: sitting in chair GI: Other: abdomen soft, nt, nd : Other: [address], red /brown urine in bag, thin no clots Objective Data Vital Signs Vital Signs: Vital Signs - 24 hr 05/08/22 14:00 05/08/22 14:35 05/08/22 18:00 Temperature 36.2 C L 36.4 C L Pulse Rate 79 91 Respiratory Rate 14 18 Blood Pressure 106/63 108/56 L Pulse Oximetry 100 100 Oxygen Delivery 05/08/22 16:00 05/08/22 20:00 05/08/22 20:00 Temperature 36.1 C L Pulse Rate 68 81 102 H Respiratory Rate 20 Blood Pressure 107/69 Pulse Oximetry 100 Oxygen Delivery 05/08/22 21:00 05/09/22 00:00 05/09/22 00:00 Temperature 36.3 C L Pulse Rate 80 57 L Respiratory Rate 16 Blood Pressure 99/63 L Pulse Oximetry 99 Oxygen Delivery Room Air 05/09/22 04:00 05/09/22 04:00 05/09/22 08:00 Temperature 36.4 C 37.1 C Pulse Rate 70 78 72 Respiratory Rate 18 16 Blood Pressure 103/53 L 93/54 L Pulse Oximetry 100 98 Oxygen Delivery 05/09/22 08:31 05/09/22 08:30 05/09/22 08:00 Temperature Pulse Rate 92 94 Respiratory Rate Blood Pressure Pulse Oximetry Oxygen Delivery Room Air 05/09/22 12:15 Temperature 36.6 C Pulse Rate 72 Respiratory Rate 18 Blood Pressure 87/60 L Pulse Oximetry 100 Oxygen Delivery Intake/Output Intake/Output: Intake & Output 05/06/22 05/07/22 05/08/22 05/09/22 23:59 23:59 23:59 23:59 Intake Total 1660 1130 2190 1300 Output Total 2800 2350 2075 1200 Balance -1140 -1220 115 100 Meds/Results Medications: Active Medications Generic Name Dose Route Start Last Admin Trade Name Freq PRN Reason Stop Dose Admin Acetaminophen 650 mg 04/27/22 20:06 05/02/22 08:23 Acetaminophen 325 Mg Tablet PO 650 mg Q4H PRN Administration Mild Pain (1-3) or Fever Allopurinol 300 mg 04/28/22 09:00 05/09/22 08:31 Allopurinol 300 Mg Tablet PO 300 mg DAILY SOCRATES Administration Dextrose 12.5 gm 04/29/22 10:18 Dextrose 50% 25 Gm/50 Ml Syringe IV PUSH PRN PRN Hypoglycemia Protocol Diltiazem HCl 240 mg 05/03/22 10:00 05/09/22 08:34 Diltiazem Hcl Cd 240 Mg Cap.Er.24h PO 240 mg QAM SOCRATES Administration Finasteride 5 mg 04/29/22 09:00 05/09/22 08:31 Finasteride 5 Mg Tablet PO 5 mg QAM SOCRATES Administration Glucagon 1 mg 04/29/22 10:18 Glucagon For Inj 1 Mg Vial IM PRN PRN Hypoglycemia Protocol Glucose 15
[2022-05-09 17:11] LABS: Glucose Point of Care 106 mg/dl (65-105)
--- NOTE | 2022-05-09 17:13 | PM.IMPN ---
Progress Note: A&P Assessment and Plan (1) Metastatic disease: Code(s): C79.9 - Secondary malignant neoplasm of unspecified site Status: Acute Assessment and Plan: Colon cancer Status post chemotherapy Follow-up with Heme-Onc as outpatient Last chemotherapy was 2 weeks ago prior to admission (2) Colon cancer: Code(s): C18.9 - Malignant neoplasm of colon, unspecified Status: Chronic Assessment and Plan: Follow-up with Heme-Onc as outpatient Currently on chemotherapy (3) Acute kidney injury: Code(s): N17.9 - Acute kidney failure, unspecified Status: Acute Assessment and Plan: Admission creatinine of 6.2. Baseline creatinine 1.3 Continues to improve Most likely multifactorial related to dehydration patient also has bilateral hydronephrosis probably related to chronic urine retention Chua catheter in place Nephrology consult Urine electrolyte Reviewed CT scan of the abdomen avoid nephrotoxic medication Mild hematuria still persist despite holding Xarelto. reconsulted urology. apprecaite their recs (4) Venous insufficiency (chronic) (peripheral): Code(s): I87.2 - Venous insufficiency (chronic) (peripheral) Status: Acute Assessment and Plan: Keep leg elevated (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: Code(s): E11.59 - Type 2 diabetes mellitus with other circulatory complications Status: Chronic Assessment and Plan: Insulin sliding scale Hemoglobin A1c 7.1 On Lantus and lispro (6) Atrial fibrillation: Qualifiers: Atrial fibrillation type: unspecified chronic Qualified Code(s): I48.20 - Chronic atrial fibrillation, unspecified Code(s): I48.91 - Unspecified atrial fibrillation Status: Chronic Assessment and Plan: Presented with AFib with RVR. Was placed IV amiodarone while in the ICU Has been transition to metoprolol and Cardizem On Xarelto for anticoagulation which has been on hold due to hematuria (7) Gout: Code(s): M10.9 - Gout, unspecified Status: Chronic Assessment and Plan: Allopurinol (8) Congestive heart failure: Qualifiers: Heart failure type: diastolic Heart failure chronicity: chronic Qualified Code(s): I50.32 - Chronic diastolic (congestive) heart failure Code(s): I50.9 - Heart failure, unspecified Status: Chronic Assessment and Plan: Diuretics on hold due to septic shock (9) Essential hypertension: Code(s): I10 - Essential (primary) hypertension Status: Acute Assessment and Plan: Blood pressure medication on hold due to septic shock Blood pressure still lowish normal (10) Hyperkalemia: Code(s): E87.5 - Hyperkalemia Status: Acute Assessment and Plan: IV hydration Patient on bicarb drip This has resolved on oral bicarb. Stopped bicarb (11) Hyponatremia: Code(s): E87.1 - Hypo-osmolality and hyponatremia Status: Acute Assessment and Plan: Most likely related to dehydration IV fluid monitor (12) Diarrhea: Code(s): R19.7 - Diarrhea, unspecified Status: Acute Assessment and Plan: Associated with hypotension give IV fluid This is resolved C diff came back negative (13) UTI (urinary tract infection): Code(s): N39.0 - Urinary tract infection, site not specified Status: Acute Assessment and Plan: IV antibiotics ESBL E coli in culture On imipenem start date 04/30/2022 Leukocytosis persist and plan 10 days course of treatment. Switch imipenem to ertapenem. finished the course Subjective Date/time seen: 05/09/22 17:13 Interval history: Patient presented with septic shock acute kidney injury UTI and AFib with RVR was in the ICU requiring vasopressors. Now has been transition to IMU. Discussed with the nursing staff. Patient doing well. Has some sore spot in her his bottom with open skin
[2022-05-09 20:49] LABS: Glucose Point of Care 249 mg/dl (65-105)
[2022-05-09 20:49] LABS: Glucose Point of Care 76 mg/dl (65-105)
[2022-05-10] VITALS (10 sets, daily range): BP systolic 89–106; BP diastolic 51–70; PULSE 67–92; RESP 11–18; TEMP 35.7–36.8; O2SAT 98–100
--- NOTE | 2022-05-10 04:51 | PC.NURSE ---
Pt tolerated kincaid irrigation well. No blood clots present. Some sediments presented. Kincaid patent and intact.
[2022-05-10] MEDS: CENTRAL LINE FLUSH 10 ML IV PUSH ×3 (05:12→21:35)
[2022-05-10 05:28] LABS: Hematocrit 27.5 % (42.0-52.0); Hemoglobin 8.7 g/dL (14.0-18.0); Mean Corpuscular HGB Conc 31.6 g/dl (32-36); Mean Corpuscular Hemoglobin 31.2 pg (26-34); Mean Corpuscular Volume 98.6 fl (80-100); Mean Platelet Volume 9.7 fl (7.4-10.4); Platelet Count Result 196 k/mm3 (150-375); Red Blood Count 2.79 M/mm3 (4.6-6.20); Red Cell Distribution Width 17.9 % (11.5-14.5); White Blood Count 9.3 K/mm3 (4.5-10.0)
[2022-05-10 06:00] LABS: Anion Gap 3 mmol/L (8-16); Blood Urea Nitrogen 47 mg/dL (9-20); Calcium 8.5 mg/dL (8.4-10.2); Carbon Dioxide 27 mmol/L (22-30); Chloride 100 mmol/L (98-107); Estimated CRCL calculation 56 ml/min; Estimated Glomerular Filt Rate 54; Glucose 72 mg/dL (65-110); Potassium 4.8 mmol/L (3.4-5.0); Sodium 130 mmol/L (137-145)
[2022-05-10 07:29] LABS: Glucose Point of Care 74 mg/dl (65-105)
--- NOTE | 2022-05-10 08:51 | PCPTNOTE ---
Attempted to see patient for PT, however patient was eating breakfast.
[2022-05-10] MEDS: METOPROLOL SUCCINATE EXT REL 100 MG TABCR PO (09:02)
[2022-05-10] MEDS: allopurinoL 300 MG TABLET PO (09:02)
[2022-05-10] MEDS: FINASTERIDE 5 MG TABLET PO (09:02)
[2022-05-10 11:22] LABS: Glucose Point of Care 221 mg/dl (65-105)
[2022-05-10] MEDS: INSULIN ASPART (*BKC) 100 UNITS/ML SUB-Q (13:08)
--- NOTE | 2022-05-10 14:43 | PC.NURSE ---
patient to CT
--- NOTE | 2022-05-10 14:58 | PM.IMPN ---
Progress Note: A&P Assessment and Plan (1) Metastatic disease: Code(s): C79.9 - Secondary malignant neoplasm of unspecified site Status: Acute Assessment and Plan: Colon cancer Status post chemotherapy Follow-up with Heme-Onc as outpatient Last chemotherapy was 2 weeks ago prior to admission (2) Colon cancer: Code(s): C18.9 - Malignant neoplasm of colon, unspecified Status: Chronic Assessment and Plan: Follow-up with Heme-Onc as outpatient Currently on chemotherapy (3) Acute kidney injury: Code(s): N17.9 - Acute kidney failure, unspecified Status: Acute Assessment and Plan: Admission creatinine of 6.2. Baseline creatinine 1.3 Continues to improve Most likely multifactorial related to dehydration patient also has bilateral hydronephrosis probably related to chronic urine retention Chua catheter in place Nephrology consult Urine electrolyte Reviewed CT scan of the abdomen avoid nephrotoxic medication Mild hematuria still persist despite holding Xarelto. reconsulted urology. Plan for CT urogram that is been order. Continue with irrigation as suggested (4) Venous insufficiency (chronic) (peripheral): Code(s): I87.2 - Venous insufficiency (chronic) (peripheral) Status: Acute Assessment and Plan: Keep leg elevated (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: Code(s): E11.59 - Type 2 diabetes mellitus with other circulatory complications Status: Chronic Assessment and Plan: Insulin sliding scale Hemoglobin A1c 7.1 On Lantus and lispro (6) Atrial fibrillation: Qualifiers: Atrial fibrillation type: unspecified chronic Qualified Code(s): I48.20 - Chronic atrial fibrillation, unspecified Code(s): I48.91 - Unspecified atrial fibrillation Status: Chronic Assessment and Plan: Presented with AFib with RVR. Was placed IV amiodarone while in the ICU Has been transition to metoprolol and Cardizem On Xarelto for anticoagulation which has been on hold due to hematuria (7) Gout: Code(s): M10.9 - Gout, unspecified Status: Chronic Assessment and Plan: Allopurinol (8) Congestive heart failure: Qualifiers: Heart failure type: diastolic Heart failure chronicity: chronic Qualified Code(s): I50.32 - Chronic diastolic (congestive) heart failure Code(s): I50.9 - Heart failure, unspecified Status: Chronic Assessment and Plan: Diuretics on hold due to septic shock (9) Essential hypertension: Code(s): I10 - Essential (primary) hypertension Status: Acute Assessment and Plan: Blood pressure medication on hold due to septic shock Blood pressure still lowish normal (10) Hyperkalemia: Code(s): E87.5 - Hyperkalemia Status: Acute Assessment and Plan: IV hydration Patient on bicarb drip This has resolved on oral bicarb. Stopped bicarb (11) Hyponatremia: Code(s): E87.1 - Hypo-osmolality and hyponatremia Status: Acute Assessment and Plan: Most likely related to dehydration IV fluid monitor (12) Diarrhea: Code(s): R19.7 - Diarrhea, unspecified Status: Acute Assessment and Plan: Associated with hypotension give IV fluid This is resolved C diff came back negative (13) UTI (urinary tract infection): Code(s): N39.0 - Urinary tract infection, site not specified Status: Acute Assessment and Plan: IV antibiotics ESBL E coli in culture On imipenem start date 04/30/2022 Leukocytosis persist and plan 10 days course of treatment. Switch imipenem to ertapenem. finished the course Plan discussed disposition plan. workign with therapy. concerned with going home alone. will benefit from rehabilitation. Subjective Date/time seen: 05/10/22 14:59 Interval history: Patient presented with septic shock acute kidney injury UTI and AFib with RV
--- NOTE | 2022-05-10 16:11 | WPDUROPN2 ---
Progress Note: A&P Assessment and Plan (1) UTI (urinary tract infection): Code(s): N39.0 - Urinary tract infection, site not specified Status: Acute Assessment and Plan: Repeat Urine culture to ensure his e-Coli infection is not still present contributing to hematuria. (2) Urinary retention: Code(s): R33.9 - Retention of urine, unspecified Status: Acute Assessment and Plan: Keep kincaid in place, irrigate q shift until urine is clear. (3) Gross hematuria: Code(s): R31.0 - Gross hematuria Status: Acute Assessment and Plan: Likely secondary to anticoagulants. 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 He may be have resolution of hematuria without the kincaid. Will monitor ongoing. Order a CT abdomen/pelvis with and without contrast to further evaluate and KUB. Outpatient Cystoscopy will be scheduled. Subjective Subjective Date/Time Seen: 05/10/22 16:11 The patient has some residual gross hematuria today after given orders to manually irrigate q shift per Dr. Estrada this weekend. He has no pain today and catheter is draining well. He is on two anticoagulants although a repeat culture wasn't sent, therefore one was ordered today. He had a UTI on 04/27/22 growing E-Coli. He had a CT without contrast earlier this month that is insignificant of a source for gross hematuria. Review of Systems Cardiovascular: Cardiovascular: Denies chest pain Respiratory: Respiratory: Reports no additional respiratory complaints Gastrointestinal: Gastrointestinal: Denies abdominal pain, Denies nausea and Denies vomiting Genitourinary: Genitourinary: Reports hematuria, Denies genital pain, Denies dysuria, Denies flank pain, Denies urinary hesitancy and Denies urinary urgency Exam Const: General: cooperative and comfortable Resp: Effort & Inspection: normal respiratory effort Cardio: Rate: regular rate GI: GI Palp: Yes Soft to palpation and No Tenderness to palpation present (GI) : General: Yes no CVA tenderness Urinary Catheter: Urinary Catheter: patent and draining, urine cloudy and urine red Extrem: Right lower extremity: no edema Left lower extremity: no edema Objective Data Vital Signs Vital Signs: Vital Signs - 24 hr 05/09/22 20:54 05/09/22 20:00 05/09/22 20:00 Temperature 97.1 F L Pulse Rate 60 68 Respiratory Rate 16 Blood Pressure 98/64 L Pulse Oximetry 100 Oxygen Delivery Room Air 05/10/22 00:00 05/10/22 04:00 05/10/22 05:27 Temperature 98.3 F Pulse Rate 86 92 84 Respiratory Rate 16 Blood Pressure 99/58 L Pulse Oximetry 100 Oxygen Delivery 05/10/22 07:51 05/10/22 08:00 05/10/22 08:00 Temperature 96.6 F L Pulse Rate 76 76 Respiratory Rate 11 L Blood Pressure 103/51 L Pulse Oximetry 98 Oxygen Delivery Room Air 05/10/22 11:25 05/10/22 15:49 Temperature 96.2 F L 96.8 F L Pulse Rate 83 80 Respiratory Rate 14 16 Blood Pressure 89/55 L 106/56 L Pulse Oximetry 99 98 Oxygen Delivery Intake/Output Intake/Output: Intake & Output 05/07/22 05/08/22 05/09/22 05/10/22 23:59 23:59 23:59 23:59 Intake Total 1130 2190 1960 480 Output Total 5160 2075 2300 1999 Balance -1220 115 340 1520 Meds/Results Medications: Active Medications Generic Name Dose Route Start Last Admin Trade Name Freq PRN Reason Stop Dose Admin Acetaminophen 650 mg 04/27/22 20:06 05/02/22 08:23 Acetaminophen 325 Mg Tablet PO 650 mg Q4H PRN Administration Mild Pain (1-3) or Fever Allopurinol 300 mg 04/28/22 09:00 05/10/22 09:02 Allopurinol 300 Mg Tablet PO 300 mg DAILY SOCRATES Administration Dextrose 12.5 gm 04/29/22 10:18 Dextrose 50% 25 Gm/50 Ml Syringe IV PUSH PRN PRN Hypoglycemia Protocol Diltiazem HCl 240 mg 05/03/22 10:00 05/10/22 09:02 Diltiazem Hcl Cd 240 Mg Cap.E
[2022-05-10 16:23] LABS: Glucose Point of Care 82 mg/dl (65-105)
[2022-05-10 21:33] LABS: Appearance Urine Slightly Cloudy (Clear); Bilirubin Urine Negative (Negative); Blood Urine 3+ (Negative); Color Urine Red (Yellow); Glucose Urine UA Trace mg/dL (Negative); Ketones Urine Negative (Negative); Leukocyte Esterase Ur 1+ LEU/UL (Negative); Nitrate Urine Negative (Negative); Protein Urine 3+ mg/dL (Negative); Specific Grav Ur 1.015 (1.001-1.035); Urobilinogen Urine 0.2 mg/dL (<2.0)
[2022-05-10 21:39] LABS: Bacteria Urine Trace /hpf; RBC Urine >75 /hpf (0-2); WBC Urine 16-20 /hpf
[2022-05-10 21:40] LABS: Add Urine Microscopic? YES
[2022-05-10] MEDS: HEPARIN SODIUM LOCK FLUSH 500 UNITS/5 ML SYRINGE IV PUSH (22:02)
[2022-05-10 22:03] LABS: Glucose Point of Care 147 mg/dl (65-105)
[2022-05-11] VITALS (7 sets, daily range): BP systolic 96–176; BP diastolic 52–62; PULSE 60–99; RESP 16–24; TEMP 35.7–36.7; O2SAT 98–100
[2022-05-11] MEDS: CENTRAL LINE FLUSH 10 ML IV PUSH ×3 (05:08→21:02)
[2022-05-11 05:16] LABS: Hematocrit 26.7 % (42.0-52.0); Hemoglobin 8.6 g/dL (14.0-18.0); Mean Corpuscular HGB Conc 32.2 g/dl (32-36); Mean Corpuscular Hemoglobin 31.7 pg (26-34); Mean Corpuscular Volume 98.5 fl (80-100); Mean Platelet Volume 9.3 fl (7.4-10.4); Platelet Count Result 191 k/mm3 (150-375); Red Blood Count 2.71 M/mm3 (4.6-6.20); Red Cell Distribution Width 17.6 % (11.5-14.5); White Blood Count 10.9 K/mm3 (4.5-10.0)
[2022-05-11 05:32] LABS: Anion Gap 5 mmol/L (8-16); Blood Urea Nitrogen 54 mg/dL (9-20); Calcium 8.5 mg/dL (8.4-10.2); Carbon Dioxide 24 mmol/L (22-30); Chloride 100 mmol/L (98-107); Estimated CRCL calculation 41 ml/min; Estimated Glomerular Filt Rate 37; Glucose 101 mg/dL (65-110); Magnesium 1.9 mg/dL (1.6-2.3); Potassium 5.3 mmol/L (3.4-5.0); Sodium 129 mmol/L (137-145)
--- NOTE | 2022-05-11 06:49 | PC.NURSE ---
Pt tolerated kincaid irrigation, no blood clots present. Scant amount of sediments present upon irrigation.
[2022-05-11 07:49] LABS: Glucose Point of Care 91 mg/dl (65-105)
[2022-05-11] MEDS: METOPROLOL SUCCINATE EXT REL 100 MG TABCR PO (09:26)
[2022-05-11] MEDS: FINASTERIDE 5 MG TABLET PO (09:26)
[2022-05-11] MEDS: allopurinoL 300 MG TABLET PO (09:26)
[2022-05-11] MEDS: INSULIN GLARGINE (*BKC) 100 UNITS/ML 16 UNITS SUB-Q (09:27)
[2022-05-11 11:37] LABS: Eosinophil Urine None Seen % (None Seen)
[2022-05-11 11:42] LABS: Urine Eos QC 2nd Tech Confirmed
[2022-05-11 11:44] LABS: Creatinine Urine 35.9 mg/dL
[2022-05-11 11:44] LABS: Glucose Point of Care 246 mg/dl (65-105)
[2022-05-11 11:51] LABS: Sodium Urine Random 82 meq/L
--- NOTE | 2022-05-11 12:19 | P.PNNP_ITS ---
Progress Note: A&P Assessment and Plan (1) AGUILAR (acute kidney injury): Code(s): N17.9 - Acute kidney failure, unspecified Status: Acute Assessment and Plan: * was resolving but worse today * baseline creatinine normally runs ~ 1.0 - 1.3mg/dl * suspect multifactorial etiology: * obstructive uropathy * ATN (likely reason for slow recovery) * pre-renal factors * hemodynamic instability/hypotension * BPH * infection -- possible new UTI? * diuretics + Entresto prior to admission * evaluation to date: * most recent imaging with resolving hydronephrosis * previous CPK mildly elevated (but not likely to affect kidney function) * repeat urine electrolytes non-prerenal * kincaid catheter in place - Urology following * on oral bicarb - CO2 is better than on admission. * follow repeat labs and UOP (2) Septic shock: Code(s): A41.9 - Sepsis, unspecified organism; R65.21 - Severe sepsis with septic shock Status: Acute Assessment and Plan: * resolving * presumably due to UTI * urine shows E Coli (ESBL) * blood cultures negative to date so far * completed course of antibiotics * however, concern for possible new infection/UTI... (3) Acute hyperkalemia: Code(s): E87.5 - Hyperkalemia Status: Acute Assessment and Plan: * resolved (4) UTI (urinary tract infection): Code(s): N39.0 - Urinary tract infection, site not specified Status: Acute Assessment and Plan: * UA consistent with this * urine culture with E.coli (ESBL) * completed antibiotics * kincaid in place * repeat UA/urine culture (5) Diarrhea: Code(s): R19.7 - Diarrhea, unspecified Status: Acute Assessment and Plan: * resolved * chronic issue and reportedly due to chemotherapy * CT imaging of abd/pelvis noted * C. diff toxin assay negative * on immodium PRN (6) Atrial fibrillation: Qualifiers: Atrial fibrillation type: unspecified chronic Qualified Code(s): I48.20 - Chronic atrial fibrillation, unspecified Code(s): I48.91 - Unspecified atrial fibrillation Status: Chronic Assessment and Plan: * resuming cardizem and metoprolol as tolerated * rate control strategy * holding xarelto due to hematuria * Cardiology following Will continue to follow. Subjective Date/time seen: 05/11/22 12:19 Noted rise in BUN + creatinine/worsening renal function today by AM labs; reasonable urine output yesterday but appears to have decreased overnight; imaging yesterday and this AM noted as well; blood pressure still running on the soft side. Exam Narrative: General: elderly male in NAD Heart: normal S1 and S2; IRRR Lungs: clear to auscultation Abdomen: soft, nontender, nondistended, positive bowel sounds Extremities: no cyanosis or clubbing; no edema Skin: no nodules Objective Data Vital Signs Vital Signs: Vital Signs Temp Pulse Resp BP Pulse Ox O2 Del Method 05/11/22 11:59 97.5 F L 65 16 176/54 H 98 05/11/22 08:00 97.9 F 70 24 H 98/52 L 98 05/11/22 04:00 98.1 F 91 18 105/61 99 05/11/22 04:00 90 05/11/22 00:00 90 05/11/22 00:00 98.1 F 79 18 103/62 99 05/10/22 20:00 97.7 F 67 18 106/70 100 05/10/22 20:00 Room Air 05/10/22 20:00
--- NOTE | 2022-05-11 12:19 | PM.PNNEP ---
Progress Note: A&P Assessment and Plan (1) AGUILAR (acute kidney injury): Code(s): N17.9 - Acute kidney failure, unspecified Status: Acute Assessment and Plan: was resolving but worse today baseline creatinine normally runs ~ 1.0 - 1.3mg/dl suspect multifactorial etiology: obstructive uropathy ATN (likely reason for slow recovery) pre-renal factors hemodynamic instability/hypotension BPH infection -- possible new UTI? diuretics + Entresto prior to admission evaluation to date: most recent imaging with resolving hydronephrosis previous CPK mildly elevated (but not likely to affect kidney function) repeat urine electrolytes non-prerenal kincaid catheter in place - Urology following on oral bicarb - CO2 is better than on admission. follow repeat labs and UOP (2) Septic shock: Code(s): A41.9 - Sepsis, unspecified organism; R65.21 - Severe sepsis with septic shock Status: Acute Assessment and Plan: resolving presumably due to UTI urine shows E Coli (ESBL) blood cultures negative to date so far completed course of antibiotics however, concern for possible new infection/UTI... (3) Acute hyperkalemia: Code(s): E87.5 - Hyperkalemia Status: Acute Assessment and Plan: resolved (4) UTI (urinary tract infection): Code(s): N39.0 - Urinary tract infection, site not specified Status: Acute Assessment and Plan: UA consistent with this urine culture with E.coli (ESBL) completed antibiotics kincaid in place repeat UA/urine culture (5) Diarrhea: Code(s): R19.7 - Diarrhea, unspecified Status: Acute Assessment and Plan: resolved chronic issue and reportedly due to chemotherapy CT imaging of abd/pelvis noted C. diff toxin assay negative on immodium PRN (6) Atrial fibrillation: Qualifiers: Atrial fibrillation type: unspecified chronic Qualified Code(s): I48.20 - Chronic atrial fibrillation, unspecified Code(s): I48.91 - Unspecified atrial fibrillation Status: Chronic Assessment and Plan: resuming cardizem and metoprolol as tolerated rate control strategy holding xarelto due to hematuria Cardiology following Will continue to follow. Subjective Date/time seen: 05/11/22 12:19 Noted rise in BUN + creatinine/worsening renal function today by AM labs; reasonable urine output yesterday but appears to have decreased overnight; imaging yesterday and this AM noted as well; blood pressure still running on the soft side. Exam Narrative: General: elderly male in NAD Heart: normal S1 and S2; IRRR Lungs: clear to auscultation Abdomen: soft, nontender, nondistended, positive bowel sounds Extremities: no cyanosis or clubbing; no edema Skin: no nodules Objective Data Vital Signs Vital Signs: Vital Signs Temp Pulse Resp BP Pulse Ox O2 Del Method 05/11/22 11:59 97.5 F L 65 16 176/54 H 98 05/11/22 08:00 97.9 F 70 24 H 98/52 L 98 05/11/22 04:00 98.1 F 91 18 105/61 99 05/11/22 04:00 90 05/11/22 00:00 90 05/11/22 00:00 98.1 F 79 18 103/62 99 05/10/22 20:00 97.7 F 67 18 106/70 100 05/10/22 20:00 Room Air 05/10/22 20:00 81 05/10/22 16:00 80 05/10/22 15:49 96.8 F L 80 16 106/56 L 98 Intake/Output Intake/Output: Intake & Output 05/08/22 05/09/22 05/10/22 05/11/22 23:59 23:59 23:59 23:59 Intake Total 2190 1960 1317 375 Output Total 2075 2300 2300 300 Balance 115 340 -973 75 Meds/Results Medications: Active Medications Generic Name Dose Route Start Last Admin Trade Name Freq PRN Reason Stop Dose Admin Acetaminophen 650 mg 04/27/22 20:06 05/02/22 08:23 Acetaminophen 325 Mg Tablet PO 650 mg Q4H PRN Administration Mild Pain (1-3) or Fever Allopurinol 300 mg 04/28/22 09:00 05/11/22 09:26 Allopurinol 300 Mg Tablet PO 300 mg D
--- NOTE | 2022-05-11 12:50 | WPDUROPN2 ---
Progress Note: A&P Assessment and Plan (1) Gross hematuria: Code(s): R31.0 - Gross hematuria Status: Acute Assessment and Plan: Improved slightly, secondary to possible UTI and anticoagulants. Continue q shift irrigation. Irrigated today with 120ml of NS without difficulty, urine cleared easily and was irrigating nicely. (2) Hydronephrosis: Code(s): N13.30 - Unspecified hydronephrosis Status: Acute Assessment and Plan: Resolved on KATARZYNA today. (3) UTI (urinary tract infection): Code(s): N39.0 - Urinary tract infection, site not specified Status: Acute Plan Urine Culture pending, treat according to culture results. E-Coli grew on 04/27/22. Subjective Subjective Date/Time Seen: 05/11/22 12:50 The patient is doing well, catheter is draining today. CT scan yesterday with and without contrast bilateral hydronephrosis and urothelial thickening/pyelitis, also with a concerning liver mass and metastatic disease? KATARZYNA today after manual irrigation of the kincaid shows only mild hydro of the left ureter and bilateral renal cyts. Urine remains cloudy and light red in color. His UA is suggestive of a UTI, urine culture is pending. Review of Systems Cardiovascular: Cardiovascular: Denies chest pain Gastrointestinal: Gastrointestinal: Denies abdominal pain, Denies nausea and Denies vomiting Genitourinary: Genitourinary: Denies hematuria, Denies dysuria, Denies flank pain, Denies urinary frequency and Denies urinary hesitancy Exam Const: General: cooperative and comfortable Resp: Effort & Inspection: normal respiratory effort Cardio: Rate: regular rate GI: GI Palp: Yes Soft to palpation and No Tenderness to palpation present (GI) : General: Yes no CVA tenderness Urinary Catheter: Urinary Catheter: patent and draining, urine cloudy and urine red Extrem: Right lower extremity: no edema Left lower extremity: no edema Objective Data Vital Signs Vital Signs: Vital Signs - 24 hr 05/10/22 15:49 05/10/22 16:00 05/10/22 20:00 Temperature 96.8 F L Pulse Rate 80 80 81 Respiratory Rate 16 Blood Pressure 106/56 L Pulse Oximetry 98 Oxygen Delivery 05/10/22 20:00 05/10/22 20:00 05/11/22 00:00 Temperature 97.7 F 98.1 F Pulse Rate 67 79 Respiratory Rate 18 18 Blood Pressure 106/70 103/62 Pulse Oximetry 100 99 Oxygen Delivery Room Air 05/11/22 00:00 05/11/22 04:00 05/11/22 04:00 Temperature 98.1 F Pulse Rate 90 90 91 Respiratory Rate 18 Blood Pressure 105/61 Pulse Oximetry 99 Oxygen Delivery 05/11/22 08:00 05/11/22 11:59 05/11/22 08:00 Temperature 97.9 F 97.5 F L Pulse Rate 70 65 70 Respiratory Rate 24 H 16 Blood Pressure 98/52 L 176/54 H Pulse Oximetry 98 98 Oxygen Delivery 05/11/22 08:00 05/11/22 12:00 Temperature Pulse Rate 68 Respiratory Rate Blood Pressure Pulse Oximetry Oxygen Delivery Room Air Intake/Output Intake/Output: Intake & Output 05/08/22 05/09/22 05/10/22 05/11/22 23:59 23:59 23:59 23:59 Intake Total 2190 1960 1317 375 Output Total 2077 2300 2300 300 Balance 115 340 -773 75 Meds/Results Medications: Active Medications Generic Name Dose Route Start Last Admin Trade Name Freq PRN Reason Stop Dose Admin Acetaminophen 650 mg 04/27/22 20:06 05/02/22 08:23 Acetaminophen 325 Mg Tablet PO 650 mg Q4H PRN Administration Mild Pain (1-3) or Fever Allopurinol 300 mg 04/28/22 09:00 05/11/22 09:26 Allopurinol 300 Mg Tablet PO 300 mg DAILY SOCRATES Administration Dextrose 12.5 gm 04/29/22 10:18 Dextrose 50% 25 Gm/50 Ml Syringe IV PUSH PRN PRN Hypoglycemia Protocol Diltiazem HCl 240 mg 05/03/22 10:00 05/11/22 09:26 Diltiazem Hcl Cd 240 Mg Cap.Er.24h PO 240 mg QAM SOCRATES Administration Finasteride 5 mg 04/29/22 09:00 05/11/22 09:26 Finasteride 5 Mg Tablet PO 5 mg QAM SOCRATES Administration Glucagon 1 mg 0
[2022-05-11] MEDS: INSULIN ASPART (*BKC) 100 UNITS/ML SUB-Q (13:02)
--- NOTE | 2022-05-11 14:17 | PM.IMPN ---
Progress Note: A&P Assessment and Plan (1) Metastatic disease: Code(s): C79.9 - Secondary malignant neoplasm of unspecified site Status: Acute Assessment and Plan: Colon cancer Status post chemotherapy Follow-up with Heme-Onc as outpatient Last chemotherapy was 2 weeks ago prior to admission (2) Colon cancer: Code(s): C18.9 - Malignant neoplasm of colon, unspecified Status: Chronic Assessment and Plan: Follow-up with Heme-Onc as outpatient Currently on chemotherapy (3) Acute kidney injury: Code(s): N17.9 - Acute kidney failure, unspecified Status: Acute Assessment and Plan: Admission creatinine of 6.2. Baseline creatinine 1.3 Continues to improve Most likely multifactorial related to dehydration patient also has bilateral hydronephrosis probably related to chronic urine retention Chua catheter in place Nephrology consult Urine electrolyte Reviewed CT scan of the abdomen avoid nephrotoxic medication Mild hematuria still persist despite holding Xarelto. reconsulted urology. CT abdominal pelvis showed bilateral nephrosis. Irrigations were performed per Urology repeat ultrasound with improvement May need cystoscopy Renal failure worsened as well Continue per Urology Renal on board as well ? Concern for UTI. He just finished ertapenem course for ESBL in the urine on 05/09/2022. Urine culture repeat pending a suspect this is all bleeding related however will reinitiate ertapenem at this time until finalization of the urine culture.. 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 Was placed IV amiodarone while in the ICU Has been transition to metoprolol and Cardizem On Xarelto for anticoagulation which has been on hold due to hematuria (7) Gout: Code(s): M10.9 - Gout, unspecified Status: Chronic Assessment and Plan: Allopurinol (8) Congestive heart failure: Qualifiers: Heart failure type: diastolic Heart failure chronicity: chronic Qualified Code(s): I50.32 - Chronic diastolic (congestive) heart failure Code(s): I50.9 - Heart failure, unspecified Status: Chronic Assessment and Plan: Diuretics on hold due to septic shock (9) Essential hypertension: Code(s): I10 - Essential (primary) hypertension Status: Acute Assessment and Plan: Blood pressure medication on hold due to septic shock Blood pressure still lowish normal (10) Hyperkalemia: Code(s): E87.5 - Hyperkalemia Status: Acute Assessment and Plan: IV hydration Patient on bicarb drip This has resolved on oral bicarb. Stopped bicarb (11) Hyponatremia: Code(s): E87.1 - Hypo-osmolality and hyponatremia Status: Acute Assessment and Plan: Most likely related to dehydration IV fluid monitor (12) Diarrhea: Code(s): R19.7 - Diarrhea, unspecified Status: Acute Assessment and Plan: Associated with hypotension give IV fluid This is resolved C diff came back negative (13) UTI (urinary tract infection): Code(s): N39.0 - Urinary tract infection, site not specified Status: Acute Assessment and Plan: IV antibiotics
[2022-05-11 16:30] LABS: Glucose Point of Care 126 mg/dl (65-105)
[2022-05-11] MEDS: ERTAPENEM 1 GM/NS 50 ML 1 GM/50 ML BAG IVPB (16:52)
[2022-05-11 22:30] LABS: Glucose Point of Care 233 mg/dl (65-105)
[2022-05-12] VITALS (7 sets, daily range): BP systolic 96–114; BP diastolic 48–62; PULSE 56–104; RESP 16–20; TEMP 35.6–36; O2SAT 98–100
[2022-05-12] MEDS: CENTRAL LINE FLUSH 10 ML IV PUSH ×3 (05:11→22:49)
[2022-05-12 06:31] LABS: Hematocrit 27.3 % (42.0-52.0); Hemoglobin 8.6 g/dL (14.0-18.0); Mean Corpuscular HGB Conc 31.5 g/dl (32-36); Mean Corpuscular Hemoglobin 30.7 pg (26-34); Mean Corpuscular Volume 97.5 fl (80-100); Mean Platelet Volume 10.1 fl (7.4-10.4); Platelet Count Result 212 k/mm3 (150-375); Red Cell Distribution Width 17.4 % (11.5-14.5); White Blood Count 8.1 K/mm3 (4.5-10.0)
[2022-05-12 06:32] LABS: Anion Gap 9 mmol/L (8-16); Blood Urea Nitrogen 54 mg/dL (9-20); Calcium 8.3 mg/dL (8.4-10.2); Carbon Dioxide 21 mmol/L (22-30); Chloride 104 mmol/L (98-107); Estimated CRCL calculation 43 ml/min; Estimated Glomerular Filt Rate 40; Glucose 83 mg/dL (65-110); Magnesium 2.1 mg/dL (1.6-2.3); Potassium 4.8 mmol/L (3.4-5.0); Sodium 134 mmol/L (137-145)
[2022-05-12 07:54] LABS: Glucose Point of Care 80 mg/dl (65-105)
[2022-05-12] MEDS: allopurinoL 300 MG TABLET PO (08:18)
[2022-05-12] MEDS: METOPROLOL SUCCINATE EXT REL 100 MG TABCR PO (08:18)
[2022-05-12] MEDS: FINASTERIDE 5 MG TABLET PO (08:19)
--- NOTE | 2022-05-12 10:11 | PCNFU ---
Nutrition Follow-Up Complete: Inadequate Oral Intake as related to diarrhea as evidenced by poor po intake reported/weight loss. Goal:Adequate Intake of at least 75% of meals/supplements - goal is being met Pt current nutrition is Renal dialysis diet. Ensure Compact BID. Banatrol mixed with applesauce BID. Intakes 100%. Nutrition recommendation: Continue with same goals, care plan and diet orders. Agree with diet and supplements orders Last recorded weight is 102.7 kg. Bowel Motility: +1 BM 05/11 - Diarrhea improved Labs Reviewed: Hgb 8.6, Hct 27.3, Na 134, BUN 54, Cre 1.7, Glu 233 Meds Noted: Novolog, Lantus, Zofran Skin: L buttock, not pressure Additional Notes: Appetite is good. Diarrhea improved. Discharge planning to home with home health. Pt remains weak. RD will monitor every 7 days.
[2022-05-12 11:42] LABS: Glucose Point of Care 236 mg/dl (65-105)
[2022-05-12] MEDS: INSULIN ASPART (*BKC) 100 UNITS/ML SUB-Q (11:52)
--- NOTE | 2022-05-12 12:33 | PM.PNNEP ---
Progress Note: A&P Assessment and Plan (1) AGUILAR (acute kidney injury): Code(s): N17.9 - Acute kidney failure, unspecified Status: Acute Assessment and Plan: fluctuating suspect due intermittent obstruction baseline creatinine normally runs ~ 1.0 - 1.3mg/dl suspect multifactorial etiology: obstructive uropathy ATN (likely reason for slow recovery) pre-renal factors hemodynamic instability/hypotension BPH infection -- possible new UTI? diuretics + Entresto prior to admission evaluation to date: most recent imaging with resolving hydronephrosis previous CPK mildly elevated (but not likely to affect kidney function) repeat urine electrolytes non-prerenal kincaid catheter in place - Urology following on oral bicarb - CO2 is better than on admission. follow repeat labs and UOP (2) Septic shock: Code(s): A41.9 - Sepsis, unspecified organism; R65.21 - Severe sepsis with septic shock Status: Acute Assessment and Plan: resolving presumably due to UTI urine shows E Coli (ESBL) blood cultures negative to date so far completed course of antibiotics however, concern for possible new infection/UTI... (3) Acute hyperkalemia: Code(s): E87.5 - Hyperkalemia Status: Acute Assessment and Plan: resolved (4) UTI (urinary tract infection): Code(s): N39.0 - Urinary tract infection, site not specified Status: Acute Assessment and Plan: UA consistent with this urine culture with E.coli (ESBL) completed antibiotics kincaid in place repeat UA/urine culture (5) Diarrhea: Code(s): R19.7 - Diarrhea, unspecified Status: Acute Assessment and Plan: resolved chronic issue and reportedly due to chemotherapy CT imaging of abd/pelvis noted C. diff toxin assay negative on immodium PRN (6) Atrial fibrillation: Qualifiers: Atrial fibrillation type: unspecified chronic Qualified Code(s): I48.20 - Chronic atrial fibrillation, unspecified Code(s): I48.91 - Unspecified atrial fibrillation Status: Chronic Assessment and Plan: resuming cardizem and metoprolol as tolerated rate control strategy holding xarelto due to hematuria Cardiology following Will continue to follow. Subjective Date/time seen: 05/12/22 12:31 Issues with hypoglycemia earlier this morning again; renal function slowly improving again but still having some intermittent hematuria; no other acute issues/events overnight or earlier this AM; still feels weak. Exam Narrative: General: elderly male in NAD Heart: normal S1 and S2; IRRR Lungs: clear to auscultation Abdomen: soft, nontender, nondistended, positive bowel sounds Extremities: no cyanosis or clubbing; no edema Skin: warm and dry Objective Data Vital Signs Vital Signs: Vital Signs Temp Pulse Resp BP Pulse Ox O2 Del Method FiO2 05/12/22 12:00 82 05/12/22 12:00 96.6 F L 70 20 103/61 100 05/12/22 08:00 Room Air 96 05/12/22 08:00 77 05/12/22 08:00 96.6 F L 78 17 96/55 L 100 05/12/22 08:18 80 05/12/22 04:00 96.7 F L 73 17 106/52 L 99 05/12/22 04:00 104 H 05/12/22 00:00 73 05/11/22 20:00 99 05/12/22 00:00 96.8 F L 76 16 104/61 98 05/11/22 20:00 96.6 F L 80 17 103/60 100 05/11/22 20:00 60 16 100 Room Air Intake/Output Intake/Output: Intake & Output 05/09/22 05/10/22 05/11/22 05/12/22 23:59 23:59 23:59 23:59 Intake Total 1960 1317 965 408 Output Total 2300 2300 1375 1225 Balance -340 -983 -410 -817 Meds/Results Medications: Active Medications Generic Name Dose Route Start Last Admin Trade Name Mingq PRN Reason Stop Dose Admin Acetaminophen 650 mg 04/27/22 20:06 05/02/22 08:23 Acetaminophen 325 Mg Tablet PO 650 mg Q4H PRN Administration Mild Pain (1-3) or Fever Allopurinol 300 mg 02
--- NOTE | 2022-05-12 12:33 | P.PNNP_ITS ---
Progress Note: A&P Assessment and Plan (1) AGUILAR (acute kidney injury): Code(s): N17.9 - Acute kidney failure, unspecified Status: Acute Assessment and Plan: * fluctuating * suspect due intermittent obstruction * baseline creatinine normally runs ~ 1.0 - 1.3mg/dl * suspect multifactorial etiology: * obstructive uropathy * ATN (likely reason for slow recovery) * pre-renal factors * hemodynamic instability/hypotension * BPH * infection -- possible new UTI? * diuretics + Entresto prior to admission * evaluation to date: * most recent imaging with resolving hydronephrosis * previous CPK mildly elevated (but not likely to affect kidney function) * repeat urine electrolytes non-prerenal * kincaid catheter in place - Urology following * on oral bicarb - CO2 is better than on admission. * follow repeat labs and UOP (2) Septic shock: Code(s): A41.9 - Sepsis, unspecified organism; R65.21 - Severe sepsis with septic shock Status: Acute Assessment and Plan: * resolving * presumably due to UTI * urine shows E Coli (ESBL) * blood cultures negative to date so far * completed course of antibiotics * however, concern for possible new infection/UTI... (3) Acute hyperkalemia: Code(s): E87.5 - Hyperkalemia Status: Acute Assessment and Plan: * resolved (4) UTI (urinary tract infection): Code(s): N39.0 - Urinary tract infection, site not specified Status: Acute Assessment and Plan: * UA consistent with this * urine culture with E.coli (ESBL) * completed antibiotics * kincaid in place * repeat UA/urine culture (5) Diarrhea: Code(s): R19.7 - Diarrhea, unspecified Status: Acute Assessment and Plan: * resolved * chronic issue and reportedly due to chemotherapy * CT imaging of abd/pelvis noted * C. diff toxin assay negative * on immodium PRN (6) Atrial fibrillation: Qualifiers: Atrial fibrillation type: unspecified chronic Qualified Code(s): I48.20 - Chronic atrial fibrillation, unspecified Code(s): I48.91 - Unspecified atrial fibrillation Status: Chronic Assessment and Plan: * resuming cardizem and metoprolol as tolerated * rate control strategy * holding xarelto due to hematuria * Cardiology following Will continue to follow. Subjective Date/time seen: 05/12/22 12:31 Issues with hypoglycemia earlier this morning again; renal function slowly improving again but still having some intermittent hematuria; no other acute issues/events overnight or earlier this AM; still feels weak. Exam Narrative: General: elderly male in NAD Heart: normal S1 and S2; IRRR Lungs: clear to auscultation Abdomen: soft, nontender, nondistended, positive bowel sounds Extremities: no cyanosis or clubbing; no edema Skin: warm and dry Objective Data Vital Signs Vital Signs: Vital Signs Temp Pulse Resp BP Pulse Ox O2 Del Method FiO2 05/12/22 12:00 82 05/12/22 12:00 96.6 F L 70 20 103/61 100 05/12/22 08:00 Room Air 96 05/12/22 08:00 77 05/12/22 08:00 96.6 F L 78 17 96/55 L 100 05/12/22 08:18 80 05/12/22 04:00 96.7 F L 73 17 106/52 L 99 05/12/22 04:00 104 H 05/12/22 00:00 73 0
--- NOTE | 2022-05-12 12:46 | PM.IMPN ---
Progress Note: A&P Assessment and Plan (1) Hematuria of undiagnosed cause: Code(s): R31.9 - Hematuria, unspecified Status: Acute (2) Atrial fibrillation with rapid ventricular response: Code(s): I48.91 - Unspecified atrial fibrillation Status: Acute (3) Coagulopathy: Code(s): D68.9 - Coagulation defect, unspecified Status: Acute (4) Septic shock: Code(s): A41.9 - Sepsis, unspecified organism; R65.21 - Severe sepsis with septic shock Status: Acute (5) Severe sepsis: Code(s): A41.9 - Sepsis, unspecified organism; R65.20 - Severe sepsis without septic shock Status: Acute (6) AGUILAR (acute kidney injury): Code(s): N17.9 - Acute kidney failure, unspecified Status: Acute (7) UTI (urinary tract infection): Code(s): N39.0 - Urinary tract infection, site not specified Status: Acute Plan 71 years old male with past medical history of colon cancer on chemotherapy with 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 Treated for ESBL UTI with 10 day abx course with imipenam/carbapenam. Urology, Nephrology has been following along.Cardiology has been following as well. 1)Septic Shock: Shock has resolved Has moved out of ICU finished 10 day course of abx for ESBL UTI Leucocytosis again, concern for UTI Await urine culture C/w Ertapenam Urology following Has kincaid catheter with pink tinged urine 2)AGUILAR: Fluctuating kidney function Nephorology following Avoid nephrotoxins Recheck BMP in AM 3)Afibb with RVR: Recieved Amiodarone drip in ICU on Metoprolol, Cardizem AC on hold due to hematuria H/o CHF, Entresto not started due to kidney dysfunction 4)Metastatic Colon Cancer: Chemotherapy as outpatient Outpatient follow up with oncology 5)Diabetes Mellitus: BG check TID AC an HS Hypoglycemia this morning Decrease lantus to 10 units SS insulin as needed Adjust dose as needed 6)DVT ppx:SCD 7)Code:Full 8)Dispo:pending improvement, poor [facility] prognosis Time Spent With Patient Time with patient: 25 - 35 minutes Subjective Date/time seen: 05/12/22 12:46 Interval history: hypoglycemia this morning, improved with intervention No other complaints Kincaid with red tinged urine Review of Systems Review of Systems: All systems reviewed & are unremarkable except as noted in HPI and below Exam Narrative: elderly frail chronically ill sitting on the chair not in acute distress Patient is comfortable, NAD HEENT: eyes are clear and none icteric LUNGS: normal respiratory effort ABD: not distended Lower extremities:? Bilateral 1+ edema SKIN: nonjaundiced Neuro: grossly intact.? Generalized weakness noted Objective Data Vital Signs Vital Signs: Vital Signs - 24 hr 05/11/22 16:00 05/11/22 16:00 05/11/22 20:00 Temperature 96.3 F L Pulse Rate 60 60 60 Respiratory Rate 16 16 Blood Pressure 96/52 L Pulse Oximetry 100 100 Oxygen Delivery Room Air Fraction of Inspired Oxygen 05/11/22 20:00 05/12/22 00:00 05/11/22 20:00 Temperature 96.6 F L 96.8 F L Pulse Rate 80 76 99 Respiratory Rate 17 16 Blood Pressure 103/60 104/61 Pulse Oximetry 100 98 Oxygen Delivery Fraction of Inspired Oxygen 05/12/22 00:00 05/12/22 04:00 05/12/22 04:00 Temperature 96.7 F L Pulse Rate 73 104 H 73 Respiratory Rate 17 Blood Pressure 106/52 L Pulse Oximetry 99 Oxygen Delivery Fraction of Inspired Oxygen 05/12/22 08:18 05/12/22 08:00 05/12/22 08:00 Temperature 96.6 F L Pulse Rate 80 78 77 Respiratory Rate 17 Blood Pressure 96/55 L Pulse Oximetry 100 Oxygen Delivery Fraction of Inspired Oxygen 05/12/22 08:00 05/12/22 12:00 05/12/22 12:00 Temperature 96.6 F L Pulse Rate 70 82 Respiratory Rate 20 Blood Pressure 103/61 Pulse Oximetry 100 Oxygen Delivery Ro
[2022-05-12] MEDS: ERTAPENEM 1 GM/NS 50 ML 1 GM/50 ML BAG IVPB (13:31)
[2022-05-12 16:32] LABS: Glucose Point of Care 145 mg/dl (65-105)
[2022-05-12 20:22] LABS: Glucose Point of Care 236 mg/dl (65-105)
[2022-05-13] VITALS (8 sets, daily range): BP systolic 93–113; BP diastolic 48–58; PULSE 55–100; RESP 14–17; TEMP 35.6–36.2; O2SAT 99–100
[2022-05-13 05:17] LABS: Basophils Absolute Auto 0.1 K/mm3 (0.0-0.1); Basophils Percent Auto 1.1 % (0.2-1.2); Eosinophils Absolute Auto 0.8 K/mm3 (0-0.3); Eosinophils Percent Auto 10.7 % (0-4.4); Hemoglobin 8.3 g/dL (14.0-18.0); Immature Granulocyte Absolute 0.05 K/mm3 (0.00-0.031); Immature Granulocyte Percent A 0.7 % (0-0.5); Lymphocytes Absolute Auto 2.11 K/mm3 (0.9-3.2); Lymphocytes Percent Auto 28.2 % (18.3-44.2); Mean Corpuscular HGB Conc 31.9 g/dl (32-36); Mean Corpuscular Hemoglobin 31.9 pg (26-34); Mean Platelet Volume 9.7 fl (7.4-10.4); Monocytes Absolute Auto 0.8 K/mm3 (0.1-0.6); Monocytes Percent Auto 10.3 % (2.6-8.5); Neutrophils Absolute Auto 3.7 K/mm3 (1.3-6.7); Platelet Count Result 203 k/mm3 (150-375); Red Cell Distribution Width 17.3 % (11.5-14.5); White Blood Count 7.5 K/mm3 (4.5-10.0)
[2022-05-13] MEDS: CENTRAL LINE FLUSH 10 ML IV PUSH ×2 (05:18→13:52)
[2022-05-13 05:30] LABS: Anion Gap 2 mmol/L (8-16); Blood Urea Nitrogen 47 mg/dL (9-20); Calcium 8.3 mg/dL (8.4-10.2); Carbon Dioxide 27 mmol/L (22-30); Chloride 104 mmol/L (98-107); Estimated CRCL calculation 41 ml/min; Estimated Glomerular Filt Rate 37; Glucose 88 mg/dL (65-110); Potassium 4.8 mmol/L (3.4-5.0); Sodium 133 mmol/L (137-145)
[2022-05-13 07:46] LABS: Glucose Point of Care 89 mg/dl (65-105)
[2022-05-13] MEDS: allopurinoL 300 MG TABLET PO (08:09)
[2022-05-13] MEDS: FINASTERIDE 5 MG TABLET PO (08:09)
[2022-05-13] MEDS: METOPROLOL SUCCINATE EXT REL 100 MG TABCR PO (08:10)
--- NOTE | 2022-05-13 08:55 | PCPTNOTE ---
Attempted to see patient for PT, however patient was eating breakfast.
[2022-05-13 11:59] LABS: Glucose Point of Care 235 mg/dl (65-105)
[2022-05-13] MEDS: INSULIN ASPART (*BKC) 100 UNITS/ML SUB-Q (12:11)
--- NOTE | 2022-05-13 12:28 | PM.IMPN ---
Progress Note: A&P Assessment and Plan (1) Hematuria of undiagnosed cause: Code(s): R31.9 - Hematuria, unspecified Status: Acute (2) Atrial fibrillation with rapid ventricular response: Code(s): I48.91 - Unspecified atrial fibrillation Status: Acute (3) Coagulopathy: Code(s): D68.9 - Coagulation defect, unspecified Status: Acute (4) Septic shock: Code(s): A41.9 - Sepsis, unspecified organism; R65.21 - Severe sepsis with septic shock Status: Acute (5) Severe sepsis: Code(s): A41.9 - Sepsis, unspecified organism; R65.20 - Severe sepsis without septic shock Status: Acute (6) AGUILAR (acute kidney injury): Code(s): N17.9 - Acute kidney failure, unspecified Status: Acute (7) UTI (urinary tract infection): Code(s): N39.0 - Urinary tract infection, site not specified Status: Acute Plan 71 years old male with past medical history of colon cancer on chemotherapy with 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 Treated for ESBL UTI with 10 day abx course with imipenam/carbapenam. Urology, Nephrology has been following along.Cardiology has been following as well. 1)Septic Shock: Shock has resolved Has moved out of ICU finished 10 day course of abx for ESBL UTI Leucocytosis again, concern for UTI Await urine culture C/w Ertapenam Urology following Has kincaid catheter with pink tinged urine 2)AGUILAR: Fluctuating kidney function Nephorology following Avoid nephrotoxins Recheck BMP in AM persistent hyponatremia, no improvement of renal function, blood pressures is soft sw NS125 ml/h 3/2 watch for signs of fluid overload closely 3)Afibb with RVR: Recieved Amiodarone drip in ICU on Metoprolol, Cardizem AC on hold due to hematuria H/o CHF, Entresto not started due to kidney dysfunction 4)Metastatic Colon Cancer: Chemotherapy as outpatient Outpatient follow up with oncology 5)Diabetes Mellitus: BG check TID AC an HS Hypoglycemia this morning Decrease lantus to 10 units SS insulin as needed Adjust dose as needed 6)DVT ppx:SCD 7)Code:Full 8)Dispo:pending improvement, poor terminal clerk prognosis Subjective Date/time seen: 05/13/22 12:28 Interval history: No other complaints, blood pressure is soft, lab shows hyponatremia, no improvement of kidney function over the night Kincaid with red tinged urine Exam Narrative: elderly frail chronically ill sitting on the chair not in acute distress Patient is comfortable, NAD HEENT: eyes are clear and none icteric LUNGS: normal respiratory effort ABD: not distended Lower extremities:? Bilateral 1+ edema SKIN: nonjaundiced Neuro: grossly intact.? Generalized weakness noted Objective Data Vital Signs Vital Signs: Vital Signs - 24 hr 05/12/22 16:00 05/12/22 16:00 05/12/22 19:42 Temperature 96.7 F L Pulse Rate 82 56 L Respiratory Rate 20 Blood Pressure 100/62 Pulse Oximetry 100 Oxygen Delivery Room Air 05/12/22 20:00 05/12/22 20:00 05/13/22 00:00 Temperature 96.1 F L 96.1 F L Pulse Rate 72 86 70 Respiratory Rate 16 17 Blood Pressure 114/48 L 113/48 L Pulse Oximetry 100 100 Oxygen Delivery 05/13/22 00:00 05/13/22 04:00 05/13/22 04:00 Temperature 97.2 F L Pulse Rate 79 83 77 Respiratory Rate 17 Blood Pressure 102/49 L Pulse Oximetry 99 Oxygen Delivery 05/13/22 08:10 05/13/22 08:00 Temperature Pulse Rate 100 79 Respiratory Rate Blood Pressure Pulse Oximetry Oxygen Delivery Intake/Output Intake/Output: Intake & Output 05/10/22 05/11/22 05/12/22 05/13/22 23:59 23:59 23:59 23:59 Intake Total 5197 093 2126 240 Output Total 2300 5665 2925 900 [facility] -983 -410 -1177 -660 Meds/Results Medications: Active Medications Generic Name Dose Route Start Last Admin Trade Name Freq PRN Reason
[2022-05-13] MEDS: SODIUM CHLORIDE 0.9% IV 1,000 ML 125 ML IV CONT ×2 (12:53→20:56)
[2022-05-13] MEDS: ERTAPENEM 1 GM/NS 50 ML 1 GM/50 ML BAG IVPB (13:48)
--- NOTE | 2022-05-13 13:52 | PM.PNNEP ---
Progress Note: A&P Assessment and Plan (1) AGUILAR (acute kidney injury): Code(s): N17.9 - Acute kidney failure, unspecified Status: Acute Assessment and Plan: fluctuating as noted by recent labs suspect due intermittent obstruction baseline creatinine normally runs ~ 1.0 - 1.3mg/dl suspect multifactorial etiology: obstructive uropathy ATN (likely reason for slow recovery) pre-renal factors hemodynamic instability/hypotension BPH infection diuretics + Entresto prior to admission evaluation to date: most recent imaging with resolving hydronephrosis previous CPK mildly elevated (but not likely to affect kidney function) repeat urine electrolytes non-prerenal kincaid catheter in place - Urology following on oral bicarb - CO2 is better than on admission repeat urine culture negative follow repeat labs and UOP (2) Septic shock: Code(s): A41.9 - Sepsis, unspecified organism; R65.21 - Severe sepsis with septic shock Status: Acute Assessment and Plan: resolving presumably due to UTI urine shows E Coli (ESBL) blood cultures negative to date so far completed course of antibiotics repeat urine culture negative (3) Acute hyperkalemia: Code(s): E87.5 - Hyperkalemia Status: Acute Assessment and Plan: resolved (4) UTI (urinary tract infection): Code(s): N39.0 - Urinary tract infection, site not specified Status: Acute Assessment and Plan: UA consistent with this urine culture with E.coli (ESBL) completed antibiotics kincaid in place repeat UA/urine culture (5) Diarrhea: Code(s): R19.7 - Diarrhea, unspecified Status: Acute Assessment and Plan: resolved chronic issue and reportedly due to chemotherapy CT imaging of abd/pelvis noted C. diff toxin assay negative on immodium PRN (6) Atrial fibrillation: Qualifiers: Atrial fibrillation type: unspecified chronic Qualified Code(s): I48.20 - Chronic atrial fibrillation, unspecified Code(s): I48.91 - Unspecified atrial fibrillation Status: Chronic Assessment and Plan: resuming cardizem and metoprolol as tolerated rate control strategy holding xarelto due to hematuria Cardiology following Will continue to follow. Subjective Date/time seen: 05/13/22 13:52 No acute issues or complaints voiced at this time; continues to make good urine output but renal function remains essentially unchanged; no other acute issues/events to report at this time; no apparent distress expressed either. Exam Narrative: General: elderly male in NAD Heart: normal S1 and S2; IRRR Lungs: clear to auscultation Abdomen: soft, nontender, nondistended, positive bowel sounds Extremities: no cyanosis or clubbing; no edema Skin: warm and dry Objective Data Vital Signs Vital Signs: Vital Signs Temp Pulse Resp BP Pulse Ox O2 Del Method 05/13/22 13:46 96.6 F L 55 L 16 93/48 L 100 05/13/22 12:00 95 05/13/22 08:00 79 05/13/22 08:10 100 05/13/22 04:00 97.2 F L 77 17 102/49 L 99 05/13/22 04:00 83 05/13/22 00:00 79 05/13/22 00:00 96.1 F L 70 17 113/48 L 100 05/12/22 20:00 86 05/12/22 20:00 96.1 F L 72 16 114/48 L 100 05/12/22 19:42 Room Air 05/12/22 16:00 96.7 F L 56 L 20 100/62 100 05/12/22 16:00 82 Intake/Output Intake/Output: Intake & Output 05/10/22 05/11/22 05/12/22 05/13/22 23:59 23:59 23:59 23:59 Intake Total 7521 858 1599 480 Output Total 2300 1375 2725 900 Balance -983 -410 -1177 -420 Meds/Results Medications: Active Medications Generic Name Dose Route Start Last Admin Trade Name Melinda PRN Reason Stop Dose Admin Acetaminophen 650 mg 04/27/22 20:06 05/02/22 08:23 Acetaminophen 325 Mg Tablet PO 650 mg Q4H PRN Administration Mild Pain (1-3) or Fever Allopurinol 300 mg
--- NOTE | 2022-05-13 13:52 | P.PNNP_ITS ---
Progress Note: A&P Assessment and Plan (1) AGUILAR (acute kidney injury): Code(s): N17.9 - Acute kidney failure, unspecified Status: Acute Assessment and Plan: * fluctuating as noted by recent labs * suspect due intermittent obstruction * baseline creatinine normally runs ~ 1.0 - 1.3mg/dl * suspect multifactorial etiology: * obstructive uropathy * ATN (likely reason for slow recovery) * pre-renal factors * hemodynamic instability/hypotension * BPH * infection * diuretics + Entresto prior to admission * evaluation to date: * most recent imaging with resolving hydronephrosis * previous CPK mildly elevated (but not likely to affect kidney function) * repeat urine electrolytes non-prerenal * kincaid catheter in place - Urology following * on oral bicarb - CO2 is better than on admission * repeat urine culture negative * follow repeat labs and UOP (2) Septic shock: Code(s): A41.9 - Sepsis, unspecified organism; R65.21 - Severe sepsis with septic shock Status: Acute Assessment and Plan: * resolving * presumably due to UTI * urine shows E Coli (ESBL) * blood cultures negative to date so far * completed course of antibiotics * repeat urine culture negative (3) Acute hyperkalemia: Code(s): E87.5 - Hyperkalemia Status: Acute Assessment and Plan: * resolved (4) UTI (urinary tract infection): Code(s): N39.0 - Urinary tract infection, site not specified Status: Acute Assessment and Plan: * UA consistent with this * urine culture with E.coli (ESBL) * completed antibiotics * kincaid in place * repeat UA/urine culture (5) Diarrhea: Code(s): R19.7 - Diarrhea, unspecified Status: Acute Assessment and Plan: * resolved * chronic issue and reportedly due to chemotherapy * CT imaging of abd/pelvis noted * C. diff toxin assay negative * on immodium PRN (6) Atrial fibrillation: Qualifiers: Atrial fibrillation type: unspecified chronic Qualified Code(s): I48.20 - Chronic atrial fibrillation, unspecified Code(s): I48.91 - Unspecified atrial fibrillation Status: Chronic Assessment and Plan: * resuming cardizem and metoprolol as tolerated * rate control strategy * holding xarelto due to hematuria * Cardiology following Will continue to follow. Subjective Date/time seen: 05/13/22 13:52 No acute issues or complaints voiced at this time; continues to make good urine output but renal function remains essentially unchanged; no other acute issues/events to report at this time; no apparent distress expressed either. Exam Narrative: General: elderly male in NAD Heart: normal S1 and S2; IRRR Lungs: clear to auscultation Abdomen: soft, nontender, nondistended, positive bowel sounds Extremities: no cyanosis or clubbing; no edema Skin: warm and dry Objective Data Vital Signs Vital Signs: Vital Signs Temp Pulse Resp BP Pulse Ox O2 Del Method 05/13/22 13:46 96.6 F L 55 L 16 93/48 L 100 05/13/22 12:00 95 05/13/22 08:00 79 05/13/22 08:10 100 05/13/22 04:00 97.2 F L 77 17 102/49 L 99 05/13/22 04:00 83 05/13/22 00:00 79 05/13/22 00:00 96.1 F L 70 17 113/48 L 100 05/12/22 20:00 86
[2022-05-13 17:00] LABS: Glucose Point of Care 110 mg/dl (65-105)
[2022-05-13 20:36] LABS: Glucose Point of Care 234 mg/dl (65-105)
[2022-05-14] VITALS (9 sets, daily range): BP systolic 100–107; BP diastolic 55–61; PULSE 72–101; RESP 14–20; TEMP 36.1–36.4; O2SAT 96–100
[2022-05-14] MEDS: SODIUM CHLORIDE 0.9% IV 1,000 ML 125 ML IV CONT (05:15)
[2022-05-14 08:09] LABS: Glucose Point of Care 91 mg/dl (65-105)
[2022-05-14] MEDS: FINASTERIDE 5 MG TABLET PO (08:28)
[2022-05-14] MEDS: allopurinoL 300 MG TABLET PO (08:28)
[2022-05-14] MEDS: INSULIN GLARGINE (*BKC) 100 UNITS/ML 10 UNITS SUB-Q (08:31)
--- NOTE | 2022-05-14 11:02 | PM.IMPN ---
Progress Note: A&P Assessment and Plan (1) Hematuria of undiagnosed cause: Code(s): R31.9 - Hematuria, unspecified Status: Acute (2) Atrial fibrillation with rapid ventricular response: Code(s): I48.91 - Unspecified atrial fibrillation Status: Acute (3) Coagulopathy: Code(s): D68.9 - Coagulation defect, unspecified Status: Acute (4) Septic shock: Code(s): A41.9 - Sepsis, unspecified organism; R65.21 - Severe sepsis with septic shock Status: Acute (5) Severe sepsis: Code(s): A41.9 - Sepsis, unspecified organism; R65.20 - Severe sepsis without septic shock Status: Acute (6) AGUILAR (acute kidney injury): Code(s): N17.9 - Acute kidney failure, unspecified Status: Acute (7) UTI (urinary tract infection): Code(s): N39.0 - Urinary tract infection, site not specified Status: Acute Plan 71 years old male with past medical history of colon cancer on chemotherapy with 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 Treated for ESBL UTI with 10 day abx course with imipenam/carbapenam. Urology, Nephrology has been following along.Cardiology has been following as well. 1)Septic Shock: Shock has resolved Has moved out of ICU finished 10 day course of abx for ESBL UTI Leucocytosis again, concern for UTI urine culture grows ESBL received impenem on 04/28, now on Ertapenam. finished abx for ESBL today. dc abx Urology following Has kincaid catheter with pink tinged urine 2)AGUILAR: Fluctuating kidney function Nephorology following Avoid nephrotoxins Recheck BMP in AM persistent hyponatremia, no improvement of renal function, blood pressures was soft 3/2 sw NS125 ml/h 3/2 watch for signs of fluid overload closely now BP stable dc iv fluid 3)Afibb with RVR: Recieved Amiodarone drip in ICU on Metoprolol, Cardizem AC on hold due to hematuria H/o CHF, Entresto not started due to kidney dysfunction 4)Metastatic Colon Cancer: Chemotherapy as outpatient Outpatient follow up with oncology 5)Diabetes Mellitus: BG check TID AC an HS Hypoglycemia this morning Decrease lantus to 10 units SS insulin as needed Adjust dose as needed 6)DVT ppx:SCD 7)Code:Full 8)Dispo:pending improvement, poor [facility] prognosis Subjective Date/time seen: 05/14/22 11:02 Interval history: No other complaints, BP improves. Patient is able to ambulate with physical therapist Exam Narrative: elderly frail chronically ill sitting on the chair not in acute distress Patient is comfortable, NAD HEENT: eyes are clear and none icteric LUNGS: normal respiratory effort ABD: not distended Lower extremities:? Bilateral 1+ edema SKIN: nonjaundiced Neuro: grossly intact.? Generalized weakness noted Objective Data Vital Signs Vital Signs: Vital Signs - 24 hr 05/13/22 12:00 05/13/22 13:46 05/13/22 16:00 Temperature 96.6 F L Pulse Rate 95 55 L 68 Respiratory Rate 16 Blood Pressure 93/48 L Pulse Oximetry 100 05/13/22 20:00 05/13/22 20:00 05/14/22 00:00 Temperature 96.9 F L Pulse Rate 79 68 79 Respiratory Rate 14 Blood Pressure 102/58 L Pulse Oximetry 100 05/14/22 04:00 05/14/22 05:58 Temperature 97.6 F Pulse Rate 72 78 Respiratory Rate 14 Blood Pressure 107/55 L Pulse Oximetry 96 Intake/Output Intake/Output: Intake & Output 05/11/22 05/12/22 05/13/22 05/14/22 23:59 23:59 23:59 23:59 Intake Total 965 1548 2020 2208 Output Total 1375 2725 1500 1500 Balance -410 -1177 520 708 Meds/Results Medications: Active Medications Generic Name Dose Route Start Last Admin Trade Name Freq PRN Reason Stop Dose Admin Acetaminophen 650 mg 04/27/22 20:06 05/02/22 08:23 Acetaminophen 325 Mg Tablet PO 650 mg Q4H PRN Administration Mild Pain (1-3) or Fever Allopurinol 300 mg 04/28/22
[2022-05-14 11:56] LABS: Glucose Point of Care 184 mg/dl (65-105)
[2022-05-14 12:15] LABS: Hematocrit 27.1 % (42.0-52.0); Hemoglobin 8.5 g/dL (14.0-18.0); Mean Corpuscular HGB Conc 31.4 g/dl (32-36); Mean Corpuscular Hemoglobin 31.7 pg (26-34); Mean Corpuscular Volume 101.1 fl (80-100); Mean Platelet Volume 9.9 fl (7.4-10.4); Platelet Count Result 202 k/mm3 (150-375); Red Blood Count 2.68 M/mm3 (4.6-6.20); Red Cell Distribution Width 17.3 % (11.5-14.5); White Blood Count 6.3 K/mm3 (4.5-10.0)
[2022-05-14 12:29] LABS: Anion Gap 7 mmol/L (8-16); Blood Urea Nitrogen 37 mg/dL (9-20); Calcium 8.4 mg/dL (8.4-10.2); Carbon Dioxide 23 mmol/L (22-30); Chloride 107 mmol/L (98-107); Estimated CRCL calculation 58 ml/min; Estimated Glomerular Filt Rate 54; Glucose 168 mg/dL (65-110); Potassium 4.7 mmol/L (3.4-5.0); Sodium 137 mmol/L (137-145)
--- NOTE | 2022-05-14 12:33 | P.PNNP_ITS ---
Progress Note: A&P Assessment and Plan (1) AGUILAR (acute kidney injury): Code(s): N17.9 - Acute kidney failure, unspecified Status: Acute Assessment and Plan: * fluctuating as noted by recent labs * suspect due intermittent obstruction * baseline creatinine normally runs ~ 1.0 - 1.3mg/dl * suspect multifactorial etiology: * obstructive uropathy * ATN (likely reason for slow recovery) * pre-renal factors * hemodynamic instability/hypotension * BPH * infection * diuretics + Entresto prior to admission * evaluation to date: * most recent imaging with resolving hydronephrosis * previous CPK mildly elevated (but not likely to affect kidney function) * repeat urine electrolytes non-prerenal * kincaid catheter in place - Urology following * on oral bicarb - CO2 is better than on admission * repeat urine culture negative * follow repeat labs and UOP (2) Septic shock: Code(s): A41.9 - Sepsis, unspecified organism; R65.21 - Severe sepsis with septic shock Status: Acute Assessment and Plan: * resolving * presumably due to UTI * urine shows E Coli (ESBL) * blood cultures negative to date so far * completed course of antibiotics * repeat urine culture negative (3) Acute hyperkalemia: Code(s): E87.5 - Hyperkalemia Status: Acute Assessment and Plan: * resolved (4) UTI (urinary tract infection): Code(s): N39.0 - Urinary tract infection, site not specified Status: Acute Assessment and Plan: * UA consistent with this * urine culture with E.coli (ESBL) * completed antibiotics * kincaid in place * repeat UA/urine culture (5) Diarrhea: Code(s): R19.7 - Diarrhea, unspecified Status: Acute Assessment and Plan: * resolved * chronic issue and reportedly due to chemotherapy * CT imaging of abd/pelvis noted * C. diff toxin assay negative * on immodium PRN (6) Atrial fibrillation: Qualifiers: Atrial fibrillation type: unspecified chronic Qualified Code(s): I48.20 - Chronic atrial fibrillation, unspecified Code(s): I48.91 - Unspecified atrial fibrillation Status: Chronic Assessment and Plan: * resuming cardizem and metoprolol as tolerated * rate control strategy * holding xarelto due to hematuria * Cardiology following Will continue to follow intermittently. Subjective Date/time seen: 05/14/22 12:33 No new issues or problems to report at this time; he states he feels reasonably well; BP seems a bit better and he continues to work with PT/OT as tolerated; renal function better/improved by AM labs and continues to make good urine output. Exam Narrative: General: elderly male in NAD Heart: normal S1 and S2; IRRR Lungs: clear to auscultation Abdomen: soft, nontender, nondistended, positive bowel sounds Extremities: no cyanosis or clubbing; no edema Skin: warm and intact Objective Data Vital Signs Vital Signs: Vital Signs Temp Pulse Resp BP Pulse Ox O2 Del Method 05/14/22 12:00 101 H 05/14/22 08:00 87 05/14/22 08:28 Room Air 05/14/22 05:58 97.6 F 78 14 107/55 L 96 05/14/22 04:00 72 05/14/22 00:00 79 05/13/22 20:00 68 05/13/22 20:00 96.9 F L 79 14 102/58 L 100
--- NOTE | 2022-05-14 12:33 | PM.PNNEP ---
Progress Note: A&P Assessment and Plan (1) AGUILAR (acute kidney injury): Code(s): N17.9 - Acute kidney failure, unspecified Status: Acute Assessment and Plan: fluctuating as noted by recent labs suspect due intermittent obstruction baseline creatinine normally runs ~ 1.0 - 1.3mg/dl suspect multifactorial etiology: obstructive uropathy ATN (likely reason for slow recovery) pre-renal factors hemodynamic instability/hypotension BPH infection diuretics + Entresto prior to admission evaluation to date: most recent imaging with resolving hydronephrosis previous CPK mildly elevated (but not likely to affect kidney function) repeat urine electrolytes non-prerenal kincaid catheter in place - Urology following on oral bicarb - CO2 is better than on admission repeat urine culture negative follow repeat labs and UOP (2) Septic shock: Code(s): A41.9 - Sepsis, unspecified organism; R65.21 - Severe sepsis with septic shock Status: Acute Assessment and Plan: resolving presumably due to UTI urine shows E Coli (ESBL) blood cultures negative to date so far completed course of antibiotics repeat urine culture negative (3) Acute hyperkalemia: Code(s): E87.5 - Hyperkalemia Status: Acute Assessment and Plan: resolved (4) UTI (urinary tract infection): Code(s): N39.0 - Urinary tract infection, site not specified Status: Acute Assessment and Plan: UA consistent with this urine culture with E.coli (ESBL) completed antibiotics kincaid in place repeat UA/urine culture (5) Diarrhea: Code(s): R19.7 - Diarrhea, unspecified Status: Acute Assessment and Plan: resolved chronic issue and reportedly due to chemotherapy CT imaging of abd/pelvis noted C. diff toxin assay negative on immodium PRN (6) Atrial fibrillation: Qualifiers: Atrial fibrillation type: unspecified chronic Qualified Code(s): I48.20 - Chronic atrial fibrillation, unspecified Code(s): I48.91 - Unspecified atrial fibrillation Status: Chronic Assessment and Plan: resuming cardizem and metoprolol as tolerated rate control strategy holding xarelto due to hematuria Cardiology following Will continue to follow intermittently. Subjective Date/time seen: 05/14/22 12:33 No new issues or problems to report at this time; he states he feels reasonably well; BP seems a bit better and he continues to work with PT/OT as tolerated; renal function better/improved by AM labs and continues to make good urine output. Exam Narrative: General: elderly male in NAD Heart: normal S1 and S2; IRRR Lungs: clear to auscultation Abdomen: soft, nontender, nondistended, positive bowel sounds Extremities: no cyanosis or clubbing; no edema Skin: warm and intact Objective Data Vital Signs Vital Signs: Vital Signs Temp Pulse Resp BP Pulse Ox O2 Del Method 05/14/22 12:00 101 H 05/14/22 08:00 87 05/14/22 08:28 Room Air 05/14/22 05:58 97.6 F 78 14 107/55 L 96 05/14/22 04:00 72 05/14/22 00:00 79 05/13/22 20:00 68 05/13/22 20:00 96.9 F L 79 14 102/58 L 100 Intake/Output Intake/Output: Intake & Output 05/11/22 05/12/22 05/13/22 05/14/22 23:59 23:59 23:59 23:59 Intake Total 965 1548 2020 2688 Output Total 1375 2725 1500 1950 Balance -410 -1177 520 738 Meds/Results Medications: Active Medications Generic Name Dose Route Start Last Admin Trade Name Freq PRN Reason Stop Dose Admin Acetaminophen 650 mg 04/27/22 20:06 05/02/22 08:23 Acetaminophen 325 Mg Tablet PO 650 mg Q4H PRN Administration Mild Pain (1-3) or Fever Allopurinol 300 mg 04/28/22 09:00 05/14/22 08:28 Allopurinol 300 Mg Tablet PO 300 mg DAILY SOCRATES Administration Dextrose 12.5 gm 04/29/22 10:18 Dextrose 50% 25 Gm/50 Ml Syringe IV
[2022-05-14 16:35] LABS: Glucose Point of Care 162 mg/dl (65-105)
[2022-05-14] MEDS: CENTRAL LINE FLUSH 10 ML IV PUSH ×2 (17:51→20:11)
[2022-05-14 20:41] LABS: Glucose Point of Care 235 mg/dl (65-105)
[2022-05-15] VITALS (8 sets, daily range): BP systolic 103–113; BP diastolic 50–64; PULSE 66–95; RESP 16–17; TEMP 36–36.2; O2SAT 99–100
[2022-05-15 07:43] LABS: Glucose Point of Care 91 mg/dl (65-105)
[2022-05-15] MEDS: METOPROLOL SUCCINATE EXT REL 100 MG TABCR PO (08:18)
[2022-05-15] MEDS: allopurinoL 300 MG TABLET PO (08:19)
[2022-05-15] MEDS: FINASTERIDE 5 MG TABLET PO (08:19)
[2022-05-15] MEDS: INSULIN GLARGINE (*BKC) 100 UNITS/ML 10 UNITS SUB-Q (08:19)
--- NOTE | 2022-05-15 08:22 | PCOTNOTE ---
Patient met goals for Occupational Therapy, no skilled OT indicated at this time, will discharge from OT services.
--- NOTE | 2022-05-15 09:54 | PM.PNCARD ---
Progress Note: A&P Assessment and Plan (1) Atrial fibrillation with rapid ventricular response: Code(s): I48.91 - Unspecified atrial fibrillation Status: Acute Assessment and Plan: Transitioned from IV Amiodarone to home regimen of Diltiazem and Metoprolol. Metoprolol tartrate transitioned to succinate form. Although patient has LV systolic dysfunction, he was tolerating Dilitazem prior to admission and was not hemodynamically stable. Off anticoagulation due to hematuria. Continue current regimen of metoprolol. Heart rate is controlled. (2) Cardiomyopathy: Code(s): I42.9 - Cardiomyopathy, unspecified Status: Acute Assessment and Plan: History mild LV systolic dysfunction EF 45-50%. Continue beta dinora. Will hold off on restarting Entresto as I do not think his blood pressure will tolerate it at this point and given his AGUILAR. GDMT can be done as outpatient. (3) AGUILAR (acute kidney injury): Code(s): N17.9 - Acute kidney failure, unspecified Status: Acute Assessment and Plan: Nephrology following along. Hold off on resuming Entresto due to AGUILAR. Will work on GDMT as an outpatient. Subjective Date/time seen: 05/15/22 09:54 Interval history: Reason for visit: Atrial fibrillation with RVR HPI: Patient is a complicated 71-year-old male with past medical history significant for stage IV colon cancer, longstanding persistent atrial fibrillation on anticoagulation, history of? heart failure with mildly reduced EF, diabetes mellitus, thrombocytopenia, who is transferred [facility] ICU for weakness and worsening diarrhea.? Diarrhea thought to be secondary to chemotherapy but he also admitted to poor oral intake and feeling weaker.? In the emergency department h was hypotensive with acute renal failure Creatinine of 6.2 initially now 2.3 after being started on IV fluids and pressors secondary to E coli UTI. stress dose steroids have been discontinued he remains on imipenem.? Patient had moderate bilateral hydronephrosis now with Chua catheter.? his renal function has improved he was weaned off Levophed.? He developed atrial fibrillation with rapid ventricular response necessitating initiation of IV amiodarone infusion with better heart rate control with intermittent RVR episodes.? Patient has a history of RVR particular the acute illness refractory but generally controlled on oral diltiazem and metoprolol.? Patient denies chest pain, shortness of breath or palpitations at this time.? States she is feeling better although somewhat weak.? Appetite improving.? He inquired about his medications was informed that been held secondary to his low blood pressures earlier this hospitalization.? Xarelto has been on hold secondary to coagulopathy and ongoing hematuria. Patient has remained afebrile.? No noted bright red blood per rectum or melena.? No hemoptysis.? Diarrhea improving. Date of service 05/03: Chronic atrial fibrillation and LV systolic dysfunction also unfortunately with metastatic/stage IV colon cancer.? Patient states he feels better today with no specific complaints he was actually up ambulating with PT this morning.? Telemetry demonstrates AF with RVR despite IV amiodarone treatment. Date of service 05/04: Patient reports he is overall feeling well. No shortness of breath or chest pain. Date of service 05/05: No acute issues overnight. Patient without any complaints this morning. Sitting up in chair at bedside. Date of service 05/06: No issues overnight. Patient states he feels fine. HR is now controlled. Date of service 05/15/2022: Feels okay. Heart rate is controlled. No chest pain or shortness of breath Review of Systems Review of Systems: All systems reviewed & are unremarkable except as noted in HPI and below Constitutional: Constitutional: Reports as per HPI and Reports no additional constitutional complaints Eyes: Eyes: Reports as per HPI and Reports no additiona
--- NOTE | 2022-05-15 10:50 | PM.IMPN ---
Progress Note: A&P Assessment and Plan (1) Liver mass: Code(s): R16.0 - Hepatomegaly, not elsewhere classified Status: Acute (2) Hematuria of undiagnosed cause: Code(s): R31.9 - Hematuria, unspecified Status: Acute (3) Atrial fibrillation with rapid ventricular response: Code(s): I48.91 - Unspecified atrial fibrillation Status: Acute (4) Coagulopathy: Code(s): D68.9 - Coagulation defect, unspecified Status: Acute (5) Septic shock: Code(s): A41.9 - Sepsis, unspecified organism; R65.21 - Severe sepsis with septic shock Status: Acute (6) Severe sepsis: Code(s): A41.9 - Sepsis, unspecified organism; R65.20 - Severe sepsis without septic shock Status: Acute (7) AGUILAR (acute kidney injury): Code(s): N17.9 - Acute kidney failure, unspecified Status: Acute (8) UTI (urinary tract infection): Code(s): N39.0 - Urinary tract infection, site not specified Status: Acute Plan 71 years old male with past medical history of colon cancer on chemotherapy with 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 Treated for ESBL UTI with 10 day abx course with imipenam/carbapenam. Urology, Nephrology has been following along.Cardiology has been following as well. 1)Septic Shock: Shock has resolved Has moved out of ICU finished 10 day course of abx for ESBL UTI Leucocytosis again, concern for UTI urine culture grows ESBL received impenem on 04/28, and on Ertapenam. finished abx for ESBL today. dc abx Urology following Has kincaid catheter with pink tinged urine 2)AGUILAR: Fluctuating kidney function Nephorology following Avoid nephrotoxins Recheck BMP in AM persistent hyponatremia, no improvement of renal function, blood pressures was soft 3/2 sw NS125 ml/h 3/2 watch for signs of fluid overload closely now BP stable dc iv fluid 3)Afibb with RVR: Recieved Amiodarone drip in ICU on Metoprolol, Cardizem AC on hold due to hematuria H/o CHF, Entresto not started due to kidney dysfunction 4)Metastatic Colon Cancer: Chemotherapy as outpatient Outpatient follow up with oncology ?CT shows There is liver surface nodularity, consistent with cirrhosis. There is a 6.5 x 5.2 cm low-attenuation mass in the liver surrounding the left and right hepatic lobes. There is a 2.5 cm cyst in the spleen. 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 The patient denies chest pain, shortness of breath, abdominal pain, nausea vomiting Exam Narrative: elderly frail chronically ill sitting on the chair not in acute distress Patient is comfortable, NAD HEENT: eyes are clear and none icteric LUNGS: normal respiratory effort ABD: not distended Lower extremities:? Bilateral 1+ edema SKIN: nonjaundiced Neuro: grossly intact.? Generalized weakness noted Objective Data Vital Signs Vital Signs: Vital Signs - 24 hr 05/14/22 12:00 05/14/22 13:00 05/14/22 16:00 Temperature 97.0 F L Pulse Rate 101 H 80 84 Respiratory Rate 20 Blood Pressure 100/61 Pulse Oximetry 100 05/14/22 22:21 05/14/22 20:00 05/15/22 00:00 Temperature 97.2 F L Pulse Rate 83 84 80 Respiratory Rate 18 Blood Pressure 102/55 L Pulse Oximetry 100 05/15/22 06:00 05/15/22 04:00 05/15/22 08:11 Temperature 97.1 F L 97.1 F L Pulse Rate 75 88 66 Respiratory Rate 16 17 Blood Pressure 113/64 104/50 L Pulse Oximetry 99 100 05/15/22 08:18 Temperature Pulse Rate 80 Respiratory Rate Blood Pressure Pulse Oximetry Intake/Output Intake/Output
[2022-05-15 11:13] LABS: Basophils Absolute Auto 0.1 K/mm3 (0.0-0.1); Basophils Percent Auto 1.4 % (0.2-1.2); Eosinophils Absolute Auto 0.9 K/mm3 (0-0.3); Eosinophils Percent Auto 12.8 % (0-4.4); Hematocrit 25.9 % (42.0-52.0); Immature Granulocyte Absolute 0.02 K/mm3 (0.00-0.031); Immature Granulocyte Percent A 0.3 % (0-0.5); Lymphocytes Percent Auto 27.1 % (18.3-44.2); Mean Corpuscular HGB Conc 30.9 g/dl (32-36); Mean Corpuscular Hemoglobin 31.3 pg (26-34); Mean Corpuscular Volume 101.2 fl (80-100); Mean Platelet Volume 10.1 fl (7.4-10.4); Monocytes Absolute Auto 0.7 K/mm3 (0.1-0.6); Monocytes Percent Auto 10.4 % (2.6-8.5); Neutrophils Absolute Auto 3.2 K/mm3 (1.3-6.7); Platelet Count Result 188 k/mm3 (150-375); Red Blood Count 2.56 M/mm3 (4.6-6.20); Red Cell Distribution Width 17.3 % (11.5-14.5); White Blood Count 6.6 K/mm3 (4.5-10.0)
[2022-05-15 11:19] LABS: Alanine Aminotransferase 22 U/L (6-50); Albumin Level 2.7 g/dL (3.5-5.1); Alkaline Phosphatase 246 U/L (38-126); Anion Gap 2 mmol/L (8-16); Aspartate Amino Transferase 23 U/L (17-59); Bilirubin,Total 0.4 mg/dL (0.2-1.3); Blood Urea Nitrogen 35 mg/dL (9-20); Calcium 8.4 mg/dL (8.4-10.2); Carbon Dioxide 24 mmol/L (22-30); Chloride 107 mmol/L (98-107); Estimated CRCL calculation 62 ml/min; Estimated Glomerular Filt Rate 60; Glucose 82 mg/dL (65-110); Potassium 4.9 mmol/L (3.4-5.0); Sodium 133 mmol/L (137-145)
[2022-05-15 11:22] LABS: Glucose Point of Care 206 mg/dl (65-105)
[2022-05-15] MEDS: INSULIN ASPART (*BKC) 100 UNITS/ML SUB-Q (12:22)
[2022-05-15 13:35] LABS: Chloride Rand Ur 58 mmol/L (32-290); Chloride/Creatinine Rand Ur 200 (23-275); Creatinine Random Urine 29 mg/dL (20-320)
[2022-05-15 16:20] LABS: Glucose Point of Care 116 mg/dl (65-105)
[2022-05-15 20:55] LABS: Glucose Point of Care 215 mg/dl (65-105)
[2022-05-16] VITALS (9 sets, daily range): BP systolic 95–101; BP diastolic 55–64; PULSE 73–93; RESP 16–20; TEMP 36–36.2; O2SAT 100
[2022-05-16] MEDS: CENTRAL LINE FLUSH 10 ML IV PUSH ×3 (05:27→21:15)
[2022-05-16 08:20] LABS: Glucose Point of Care 88 mg/dl (65-105)
--- NOTE | 2022-05-16 08:51 | PM.PNCARD ---
Progress Note: A&P Assessment and Plan (1) Atrial fibrillation with rapid ventricular response: Code(s): I48.91 - Unspecified atrial fibrillation Status: Acute Assessment and Plan: Transitioned from IV Amiodarone to home regimen of Diltiazem and Metoprolol. Metoprolol tartrate transitioned to succinate form. Although patient has LV systolic dysfunction, he was tolerating Dilitazem prior to admission and was not hemodynamically stable. Off anticoagulation due to hematuria. Continue current regimen of metoprolol. Heart rate is controlled. he does appear to be a bit swollen. willGive a dose of furosemide 20 mg IV times 1 (2) Cardiomyopathy: Code(s): I42.9 - Cardiomyopathy, unspecified Status: Acute Assessment and Plan: History mild LV systolic dysfunction EF 45-50%. Continue beta dinora. Will hold off on restarting Entresto as I do not think his blood pressure will tolerate it at this point and given his AGUILAR. GDMT can be done as outpatient. (3) AGUILAR (acute kidney injury): Code(s): N17.9 - Acute kidney failure, unspecified Status: Acute Assessment and Plan: Nephrology following along. Hold off on resuming Entresto due to AGUILAR. Will work on GDMT as an outpatient. Subjective Date/time seen: 05/16/22 08:51 Interval history: ?Patient is a complicated 71-year-old male with past medical history significant for stage IV colon cancer, longstanding persistent atrial fibrillation on anticoagulation, history of? heart failure with mildly reduced EF, diabetes mellitus, thrombocytopenia, who is transferred [facility] ICU for weakness and worsening diarrhea.? Diarrhea thought to be secondary to chemotherapy but he also admitted to poor oral intake and feeling weaker.? In the emergency department h was hypotensive with acute renal failure Creatinine of 6.2 initially now 2.3 after being started on IV fluids and pressors secondary to E coli UTI. stress dose steroids have been discontinued he remains on imipenem.? Patient had moderate bilateral hydronephrosis now with Chua catheter.? his renal function has improved he was weaned off Levophed.? He developed atrial fibrillation with rapid ventricular response necessitating initiation of IV amiodarone infusion with better heart rate control with intermittent RVR episodes.? Patient has a history of RVR particular the acute illness refractory but generally controlled on oral diltiazem and metoprolol.? Patient denies chest pain, shortness of breath or palpitations at this time.? States she is feeling better although somewhat weak.? Appetite improving.? He inquired about his medications was informed that been held secondary to his low blood pressures earlier this hospitalization.? Xarelto has been on hold secondary to coagulopathy and ongoing hematuria. Patient has remained afebrile.? No noted bright red blood per rectum or melena.? No hemoptysis.? Diarrhea improving. Date of service 05/03: Chronic atrial fibrillation and LV systolic dysfunction also unfortunately with metastatic/stage IV colon cancer.? Patient states he feels better today with no specific complaints he was actually up ambulating with PT this morning.? Telemetry demonstrates AF with RVR despite IV amiodarone treatment. Date of service 05/04: Patient reports he is overall feeling well. No shortness of breath or chest pain. Date of service 05/05: No acute issues overnight. Patient without any complaints this morning. Sitting up in chair at bedside. Date of service 05/06: No issues overnight. Patient states he feels fine. HR is now controlled. Date of service 05/15/2022: Feels okay.? Heart rate is controlled.? No chest pain or shortness of breath date of service 05/16/2022: Heart rate control. No chest pain Review of Systems Review of Systems: All systems reviewed & are unremarkable except as noted in HPI and below Constitutional: Constitutional: Reports as per HPI and Reports no a
[2022-05-16] MEDS: METOPROLOL SUCCINATE EXT REL 100 MG TABCR PO (09:54)
[2022-05-16] MEDS: FINASTERIDE 5 MG TABLET PO (09:55)
[2022-05-16] MEDS: allopurinoL 300 MG TABLET PO (09:55)
[2022-05-16] MEDS: FUROSEMIDE INJ 40 MG/4 ML VIAL 20 MG IV PUSH (10:01)
[2022-05-16] MEDS: INSULIN GLARGINE (*BKC) 100 UNITS/ML 10 UNITS SUB-Q (10:04)
--- NOTE | 2022-05-16 10:54 | PM.IMPN ---
Progress Note: A&P Assessment and Plan (1) Liver mass: Code(s): R16.0 - Hepatomegaly, not elsewhere classified Status: Acute (2) Hematuria of undiagnosed cause: Code(s): R31.9 - Hematuria, unspecified Status: Acute (3) Atrial fibrillation with rapid ventricular response: Code(s): I48.91 - Unspecified atrial fibrillation Status: Acute (4) Coagulopathy: Code(s): D68.9 - Coagulation defect, unspecified Status: Acute (5) Septic shock: Code(s): A41.9 - Sepsis, unspecified organism; R65.21 - Severe sepsis with septic shock Status: Acute (6) Severe sepsis: Code(s): A41.9 - Sepsis, unspecified organism; R65.20 - Severe sepsis without septic shock Status: Acute (7) AGUILAR (acute kidney injury): Code(s): N17.9 - Acute kidney failure, unspecified Status: Acute (8) UTI (urinary tract infection): Code(s): N39.0 - Urinary tract infection, site not specified Status: Acute Plan 71 years old male with past medical history of colon cancer on chemotherapy with 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 Treated for ESBL UTI with 10 day abx course with imipenam/carbapenam. Urology, Nephrology has been following along.Cardiology has been following as well. 1)Septic Shock: Shock has resolved Has moved out of ICU finished 10 day course of abx for ESBL UTI Leucocytosis again, concern for UTI urine culture grows ESBL received impenem on 04/28, and on Ertapenam. finished abx for ESBL today. dc abx Urology following. Has kincaid catheter with bloody urine Waiting for urologist re-evaluation 2)AGUILAR: Fluctuating kidney function Nephorology following Avoid nephrotoxins persistent hyponatremia, no improvement of renal function, blood pressures was soft 3/2 Received nS125 ml/h 3/2 now BP stable dc iv fluid AGUILAR has resolved 3)Afibb with RVR: Recieved Amiodarone drip in ICU on Metoprolol, Cardizem AC on hold due to hematuria H/o CHF, Entresto not started due to kidney dysfunction 4)Metastatic Colon Cancer: Chemotherapy as outpatient Outpatient follow up with oncology ?CT shows There is liver surface nodularity, consistent with cirrhosis. There is a 6.5 x 5.2 cm low-attenuation mass in the liver surrounding the left and right hepatic lobes. There is a 2.5 cm cyst in the spleen. 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 Waiting for urologist reevaluation. Patient has no new issues she wants overnight. Patient denies chest pain, shortness of breath, abdominal pain Exam Narrative: elderly frail chronically ill not in acute distress Patient is comfortable, NAD HEENT: eyes are clear and none icteric LUNGS: normal respiratory effort ABD: not distended Lower extremities:? Bilateral 1+ edema SKIN: nonjaundiced Neuro: grossly intact.? Generalized weakness noted Objective Data Vital Signs Vital Signs: Vital Signs - 24 hr 05/15/22 16:00 05/15/22 16:00 05/15/22 20:00 Temperature 96.8 F L Pulse Rate 95 79 78 Respiratory Rate 16 Blood Pressure 103/51 L Pulse Oximetry 100 Oxygen Delivery 05/15/22 20:00 05/16/22 00:00 05/16/22 04:00 Temperature Pulse Rate 82 79 Respiratory Rate Blood Pressure Pulse Oximetry Oxygen Delivery Room Air 05/16/22 09:54 Temperature Pulse Rate 79 Respiratory Rate Blood Pressure Pulse Oximetry Oxygen Delivery Intake/Output Intake/Output: Intake & Output 05/13/22 03/0
[2022-05-16 11:55] LABS: Glucose Point of Care 243 mg/dl (65-105)
[2022-05-16] MEDS: INSULIN ASPART (*BKC) 100 UNITS/ML SUB-Q (12:42)
[2022-05-16 17:16] LABS: Glucose Point of Care 124 mg/dl (65-105)
[2022-05-16 21:03] LABS: Glucose Point of Care 197 mg/dl (65-105)
[2022-05-17] VITALS (10 sets, daily range): BP systolic 91–125; BP diastolic 59–66; PULSE 68–99; RESP 13–18; TEMP 35.7–36.8; O2SAT 100
[2022-05-17] MEDS: CENTRAL LINE FLUSH 10 ML IV PUSH ×3 (05:37→20:44)
[2022-05-17 05:52] LABS: Hematocrit 25.1 % (42.0-52.0); Hemoglobin 7.9 g/dL (14.0-18.0); Mean Corpuscular HGB Conc 31.5 g/dl (32-36); Mean Corpuscular Hemoglobin 31.9 pg (26-34); Mean Corpuscular Volume 101.2 fl (80-100); Mean Platelet Volume 9.4 fl (7.4-10.4); Platelet Count Result 176 k/mm3 (150-375); Red Blood Count 2.48 M/mm3 (4.6-6.20); Red Cell Distribution Width 17.3 % (11.5-14.5); White Blood Count 6.9 K/mm3 (4.5-10.0)
[2022-05-17 06:02] LABS: Anion Gap 4 mmol/L (8-16); Blood Urea Nitrogen 39 mg/dL (9-20); Calcium 8.4 mg/dL (8.4-10.2); Carbon Dioxide 25 mmol/L (22-30); Chloride 105 mmol/L (98-107); Estimated CRCL calculation 62 ml/min; Estimated Glomerular Filt Rate 60; Glucose 85 mg/dL (65-110); Potassium 4.2 mmol/L (3.4-5.0); Sodium 134 mmol/L (137-145)
[2022-05-17 07:53] LABS: Glucose Point of Care 87 mg/dl (65-105)
[2022-05-17] MEDS: METOPROLOL SUCCINATE EXT REL 100 MG TABCR PO (08:51)
[2022-05-17] MEDS: FINASTERIDE 5 MG TABLET PO (08:51)
[2022-05-17] MEDS: allopurinoL 300 MG TABLET PO (08:52)
[2022-05-17] MEDS: INSULIN GLARGINE (*BKC) 100 UNITS/ML 10 UNITS SUB-Q (09:01)
[2022-05-17 11:47] LABS: Glucose Point of Care 209 mg/dl (65-105)
[2022-05-17] MEDS: INSULIN ASPART (*BKC) 100 UNITS/ML SUB-Q (11:59)
--- NOTE | 2022-05-17 13:12 | PM.IMPN ---
Progress Note: A&P Assessment and Plan (1) Liver mass: Code(s): R16.0 - Hepatomegaly, not elsewhere classified Status: Acute (2) Gross hematuria: Code(s): R31.0 - Gross hematuria Status: Acute (3) Cardiomyopathy: Code(s): I42.9 - Cardiomyopathy, unspecified Status: Acute (4) Atrial fibrillation with rapid ventricular response: Code(s): I48.91 - Unspecified atrial fibrillation Status: Acute (5) Urinary retention: Code(s): R33.9 - Retention of urine, unspecified Status: Acute (6) Hydronephrosis: Code(s): N13.30 - Unspecified hydronephrosis Status: Acute (7) Septic shock: Code(s): A41.9 - Sepsis, unspecified organism; R65.21 - Severe sepsis with septic shock Status: Acute (8) AGUILAR (acute kidney injury): Code(s): N17.9 - Acute kidney failure, unspecified Status: Acute (9) Severe sepsis: Code(s): A41.9 - Sepsis, unspecified organism; R65.20 - Severe sepsis without septic shock Status: Acute Plan 71 years old male with past medical history of colon cancer on? 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 Treated for ESBL UTI with 10 day abx course with imipenam/carbapenam. Urology, Nephrology has been following along.Cardiology has been following as well. 1)Septic Shock: Shock has resolved Moved out of ICU finished 10 day course of abx for ESBL UTI Continues to have bloody urine D/w Urology about further plan/intervention Likely plan to remove kincaid and have voiding trial Monitor H/H,slowly dropping H/H 2)AGUILAR: Stable kidney function Avoid nephrotoxins Recheck BMP in AM Nephrology was following Persistent mild hyponatremia, will monitor closely 3)Afibb with RVR: Recieved Amiodarone drip in ICU on Metoprolol, Cardizem AC on hold due to hematuria H/o CHF, Entresto was not started due to kidney dysfunction, ?can it be restarted, defer to cardiology 4)Metastatic Colon Cancer: Chemotherapy as outpatient Outpatient follow up with oncology 5)Diabetes Mellitus: BG check TID AC an HS Will resume lantus SS insulin as needed Adjust dose as needed 6)DVT ppx:SCD 7)Code:Full 8)Dispo:pending improvement, 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 Bilateral 1+ edema SKIN: nonjaundiced Neuro: grossly intact.? Generalized weakness noted Objective Data Vital Signs Vital Signs: Vital Signs - 24 hr 05/16/22 14:00 05/16/22 16:03 05/16/22 21:23 Temperature 96.8 F L 97.2 F L Pulse Rate 73 78 88 Respiratory Rate 20 16 Blood Pressure 95/55 L 101/64 Pulse Oximetry 100 100 Oxygen Delivery 05/16/22 20:00 05/16/22 20:00 05/17/22 00:00 Temperature Pulse Rate 82 78 Respiratory Rate Blood Pressure Pulse Oximetry Oxygen Delivery Room Air 05/17/22 04:00 05/17/22 04:00 05/17/22 05:32 Temperature 97.6 F Pulse Rate 78 85 91 Respiratory Rate 18 Blood Pressure 91/59 L Pulse Oximetry 100 Oxygen Delivery 05/17/22 08:51 05/17/22 08:00 05/17/22 08:00 Temperature Pulse Rate 86 74 Respiratory Rate Blood Pressure Pulse Oximetry Oxygen Delivery Room Air 05/17/22 12:00 Temperature Pulse Rate 99 Respiratory Rate Blood Pressure Pulse Oximetr
[2022-05-17 16:51] LABS: Glucose Point of Care 105 mg/dl (65-105)
[2022-05-18] VITALS (7 sets, daily range): BP systolic 100–101; BP diastolic 52–63; PULSE 64–99; RESP 14–16; TEMP 35.9–36.4; O2SAT 100
[2022-05-18] MEDS: CENTRAL LINE FLUSH 10 ML IV PUSH (05:14)
[2022-05-18 06:14] LABS: Basophils Absolute Auto 0.1 K/mm3 (0.0-0.1); Basophils Percent Auto 1.1 % (0.2-1.2); Eosinophils Absolute Auto 1.6 K/mm3 (0-0.3); Eosinophils Percent Auto 21.6 % (0-4.4); Hematocrit 24.2 % (42.0-52.0); Hemoglobin 7.6 g/dL (14.0-18.0); Immature Granulocyte Absolute 0.04 K/mm3 (0.00-0.031); Immature Granulocyte Percent A 0.6 % (0-0.5); Lymphocytes Absolute Auto 1.74 K/mm3 (0.9-3.2); Lymphocytes Percent Auto 24.1 % (18.3-44.2); Mean Corpuscular HGB Conc 31.4 g/dl (32-36); Mean Corpuscular Volume 98.8 fl (80-100); Monocytes Absolute Auto 0.6 K/mm3 (0.1-0.6); Monocytes Percent Auto 8.7 % (2.6-8.5); Neutrophils Absolute Auto 3.2 K/mm3 (1.3-6.7); Neutrophils Percent Auto 43.9 % (45.5-73.1); Platelet Count Result 182 k/mm3 (150-375); Red Blood Count 2.45 M/mm3 (4.6-6.20); Red Cell Distribution Width 16.7 % (11.5-14.5); White Blood Count 7.2 K/mm3 (4.5-10.0)
[2022-05-18 06:22] LABS: Alanine Aminotransferase 20 U/L (6-50); Albumin Level 2.7 g/dL (3.5-5.1); Alkaline Phosphatase 204 U/L (38-126); Anion Gap 3 mmol/L (8-16); Aspartate Amino Transferase 24 U/L (17-59); Bilirubin,Total 0.5 mg/dL (0.2-1.3); Blood Urea Nitrogen 37 mg/dL (9-20); Calcium 8.3 mg/dL (8.4-10.2); Carbon Dioxide 25 mmol/L (22-30); Chloride 106 mmol/L (98-107); Estimated CRCL calculation 62 ml/min; Estimated Glomerular Filt Rate 60; Glucose 79 mg/dL (65-110); Potassium 4.2 mmol/L (3.4-5.0); Sodium 134 mmol/L (137-145)
[2022-05-18 07:31] LABS: Glucose Point of Care 86 mg/dl (65-105)
[2022-05-18] MEDS: allopurinoL 300 MG TABLET PO (08:39)
[2022-05-18] MEDS: FINASTERIDE 5 MG TABLET PO (08:41)
[2022-05-18] MEDS: METOPROLOL SUCCINATE EXT REL 100 MG TABCR PO (08:41)
[2022-05-18] MEDS: INSULIN GLARGINE (*BKC) 100 UNITS/ML 8 UNITS SUB-Q (08:42)
[2022-05-18 11:13] LABS: Glucose Point of Care 280 mg/dl (65-105)
--- NOTE | 2022-05-18 12:02 | PM.DS ---
DS: Admitting Diagnosis Discharge Date 05/18/22 Admitting Diagnosis Septic Shock DS: Discharge Diagnosis Discharge Diagnosis (1) Gross hematuria: Code(s): R31.0 - Gross hematuria Status: Acute (2) Cardiomyopathy: Code(s): I42.9 - Cardiomyopathy, unspecified Status: Acute (3) Atrial fibrillation with rapid ventricular response: Code(s): I48.91 - Unspecified atrial fibrillation Status: Acute (4) Urinary retention: Code(s): R33.9 - Retention of urine, unspecified Status: Acute (5) Hydronephrosis: Code(s): N13.30 - Unspecified hydronephrosis Status: Acute (6) Septic shock: Code(s): A41.9 - Sepsis, unspecified organism; R65.21 - Severe sepsis with septic shock Status: Acute (7) AGUILAR (acute kidney injury): Code(s): N17.9 - Acute kidney failure, unspecified Status: Acute DS: Summary Hospital Course Reason for hospitalization: Septic Shock Hospital Course: 71 years old male with past medical history of colon cancer on? 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 Treated for ESBL UTI with 10 day abx course with imipenam/carbapenam. Urology, Nephrology, Cardiology was consulted. Chua was removed prior to dicharge. Continued to have some degreee of hematuria. No AC upon discharge.Outpatient follow up with Urology, Nephrology and Cardiology. Treated for afibb with RVR with amiodarone while in ICU, discharged on Metoprolol< Cardizem. Not started on entresto due to kidney function. Will follow up with cardiology as outpatient. Discharged home in stable condition. Status at Discharge Functional status at discharge: uses cane/walker Overall status at discharge: patient is progressing back to baseline Time Spent with Patient Time attestation: Total time spent providing and/or coordinating discharge services: Exam Narrative: elderly frail chronically ill sitting on the chair not in acute distress Patient is comfortable, NAD HEENT: eyes are clear and none icteric LUNGS: normal respiratory effort ABD: not distended Lower extremities:? Bilateral 1+ edema SKIN: nonjaundiced Neuro: grossly intact.? Generalized weakness noted DS: Data Data Completed and Pending Labs on day of discharge: Labs from last 24 hours 05/18/22 05/18/22 05/18/22 11:07 07:25 05:37 WBC RBC Hgb Hct MCV MCH MCHC RDW Plt Count MPV Immature Gran % (Auto) Neut % (Auto) Lymph % (Auto) [place] % (Auto) Eos % (Auto) Baso % (Auto) Lymph # (Auto) [place] # (Auto) Eos # (Auto) Baso # (Auto) Abs Immat Gran (auto) Absolute Neuts (auto) Absolute Nucleated RBC Nucleated RBC % Sodium 134 L Potassium 4.2 Chloride 106 Carbon Dioxide 25 Anion Gap 3 L BUN 37 H Creatinine 1.20 Estim Creat Clear Calc 62 Estimated GFR 60 Glucose 79 POC Capillary Glucose 280 H 86 Calcium 8.3 L Total Bilirubin 0.5 AST 24 ALT 20 Alkaline Phosphatase 204 H Total Protein 6.0 L Albumin 2.7 L 05/18/22 05/17/22 05:37 16:46 WBC 7.2 RBC 2.45 L Hgb 7.6 L Hct 24.2 L MCV 98.8 MCH 31.0 MCHC 31.4 L RDW 16.7 H Plt Count 182 MPV 10.0 Immature Gran % (Auto) 0.6 H Neut % (Auto) 43.9 L Lymph % (Auto) 24.1 [place] % (Auto) 8.7 H Eos % (Auto) 21.6 H Baso % (Auto) 1.1 Lymph # (Auto) 1.74 [place] # (Auto) 0.6 Eos # (Auto) 1.6 H Baso # (Auto) 0.1 Abs Immat Gran (auto) 0.04 H Absolute Neuts (auto) 3.2 Absolute Nucleated RBC 0.0 Nucleated RBC % 0.0 Sodium Potassium Chloride Carbon Dioxide Anion Gap BUN Creatinine Estim Creat Clear Calc Estimated GFR Glucose POC Capillary Glucose 105 Calcium Total Bilirubin AST ALT Alkaline Phosphatase Total Prot
[2022-05-18] MEDS: INSULIN ASPART (*BKC) 100 UNITS/ML SUB-Q (12:17)
[2022-05-18] MEDS: HEPARIN SODIUM LOCK FLUSH 500 UNITS/5 ML SYRINGE IV PUSH (14:41)
== END 2022-05-18 15:20 | disposition home health service (06) | DRG 871 ==
LOC: ANHED 21:33 → ANHICU 21:40 → ANHIMU 05-02 18:25 → ANH3MEDSUR 05-07 17:52
PROVIDERS: Family Medicine; Hospitalist; Internal Medicine; Internal Medicine Nephrology; Nurse Practitioner Adult Health; Admitting Provider Internal Medicine; Emergency Provider Emergency Medicine; PCP Family Medicine; Visit Provider Internal Medicine
DX: A41.9 Sepsis, unspecified organism (principal); D65 Disseminated intravascular coagulation [defibrination syndrome]; R65.21 Severe sepsis with septic shock; Z16.12 Extended spectrum beta lactamase (ESBL) resistance; N17.9 Acute kidney failure, unspecified; C18.9 Malignant neoplasm of colon, unspecified; C79.9 Secondary malignant neoplasm of unspecified site; N13.6 Pyonephrosis; K52.1 Toxic gastroenteritis and colitis; M62.82 Rhabdomyolysis; I42.9 Cardiomyopathy, unspecified; I50.20 Unspecified systolic (congestive) heart failure; E87.1 Hypo-osmolality and hyponatremia; B96.20 Unspecified Escherichia coli [E. coli] as the cause of diseases classified elsewhere; I48.91 Unspecified atrial fibrillation; T45.1X5A Adverse effect of antineoplastic and immunosuppressive drugs, initial encounter; N40.0 Benign prostatic hyperplasia without lower urinary tract symptoms; Z20.822 Contact with and (suspected) exposure to COVID-19; E86.0 Dehydration; E87.5 Hyperkalemia; Z79.01 Long term (current) use of anticoagulants; E11.42 Type 2 diabetes mellitus with diabetic polyneuropathy; Z88.1 Allergy status to other antibiotic agents; Z79.899 Other long term (current) drug therapy
CPT/HCPCS: 36415; 51701; 51702; 71045; 74018; 74176; 74178; 76775; 80048; 80053; 81001; 81002; 81050; 82274; 82436; 82550; 82570; 82948; 83605; 83735; 83935; 84100; 84132; 84133; 84145; 84156; 84300; 84443; 85025; 85027; 85384; 85610; 85730; 85999; 86140; 87040; 87077; 87086; 87088; 87186; 87493; 87636; 93005; 96365; 96366; 96367; 96368; 96375; 97110; 97116; 97161; 97165; 97530; 97535; 99285; A9270; G0378; J0282; J0692; J0696; J0743; J1335; J1642; J1720; J1815; J1940; J3475; J7030; P9045; P9047; Q9967

== ENCOUNTER 2022-06-29 13:12 | Outpatient (CLI) | payer MEDICARE, MEDICAID, SELFPAY ==
[2022-06-29 19:28] LABS: Iron 56 ug/dL (49-181)
[2022-06-29 19:41] LABS: Percent Iron Saturation 25 % (20-50)
[2022-06-29 19:56] LABS: Hematocrit 34.8 % (42.0-52.0); Mean Corpuscular HGB Conc 31.6 g/dl (32-36); Mean Corpuscular Volume 94.8 fl (80-100); Mean Platelet Volume 9.9 fl (7.4-10.4); Platelet Count Result 345 k/mm3 (150-375); Red Blood Count 3.67 M/mm3 (4.6-6.20); Red Cell Distribution Width 16.2 % (11.5-14.5); White Blood Count 7.1 K/mm3 (4.5-10.0)
[2022-06-29 20:47] LABS: Hemoglobin A1C 5.3 % (<5.7)
[2022-06-29 22:20] LABS: Alanine Aminotransferase 24 U/L (6-50); Albumin Level 3.9 g/dL (3.5-5.1); Alkaline Phosphatase 245 U/L (38-126); Anion Gap 12 mmol/L (8-16); Aspartate Amino Transferase 29 U/L (17-59); Bilirubin,Total 0.3 mg/dL (0.2-1.3); Blood Urea Nitrogen 30 mg/dL (9-20); Calcium 9.5 mg/dL (8.4-10.2); Carbon Dioxide 21 mmol/L (22-30); Chloride 102 mmol/L (98-107); Cholesterol 189 mg/dL (0-200); Estimated Glomerular Filt Rate 43; Glucose 102 mg/dL (65-110); HDL Direct 37 mg/dL; LDL Cholesterol Direct 97 mg/dL; Potassium 4.5 mmol/L (3.4-5.0); Sodium 135 mmol/L (137-145); Triglycerides 191 mg/dL (<150); Uric Acid 3.3 mg/dL (3.5-8.5)
== END 2022-06-29 13:13 | disposition home or self-care (01) ==
LOC: ANHGOSHLAB 13:14
PROVIDERS: PCP Family Medicine; Visit Provider Nurse Practitioner
DX: E11.59 Type 2 diabetes mellitus with other circulatory complications (principal); E53.8 Deficiency of other specified B group vitamins; E78.5 Hyperlipidemia, unspecified; M10.9 Gout, unspecified; D64.9 Anemia, unspecified
CPT/HCPCS: 36415; 80053; 80061; 82607; 83036; 83540; 83550; 84550; 85027

== ENCOUNTER 2022-07-21 09:06 | Outpatient (CLI) | payer MEDICARE, MEDICAID, SELFPAY ==
--- NOTE | ~2022-07-21 | CT_ITS ---
Clinical Indication: Colon cancer restaging CT Scan of the Chest, Abdomen, and Pelvis with Contrast: Technique: Contiguous sections were acquired throughout the chest, abdomen, and pelvis after intraven ous administration of 100 cc of Omnipaque 350. Dose reduction technique was used on this scan by uti lizing automated exposure control and iterative reconstruction technique. The dose-length product (DL P) was 1210.13 mGy-cm. COMPARISON: 05/10/2022 Findings: Single borderline enlarged right axillary lymph node is present, nonspecific. No left axillary, media stinal, or hilar lymphadenopathy.. Coronary artery calcifications are present. No large pulmonary emb olus. No aortic aneurysm or dissection. There is no evidence of pleural or pericardial effusion. 5 mm noncalcified nodule present in the posterior right upper lobe (axial image 46). 7 mm right upper lobe pulmonary nodule present (axial image 68). Left lower lobe pulmonary nodule measures 1.7 cm in diameter (axial image 95). Several additional smaller subcentimeter pulmonary nodules are present in the right lower and middle lobes. Large hypodense hepatic mass anteriorly is similar to prior exam, measuring 6.7 x 5.5 cm in diameter, consistent with metastasis. There is an additional smaller lesion just superior, measuring 1.6 cm in diameter (axial image 110), also unchanged. Probable micronodular contour of the liver noted. Stable hypodense splenic lesion, possibly a cyst. Multiple calcified gallstones are present. The pancreas and adrenal glands are within normal limits. There are bilateral renal cysts. Left hydro ureteronephrosis is stable from prior exam. No evidence of aortic aneurysm. No lymphadenopathy. No bowel obstruction or bowel wall thickening. Rectosigmoid anastomosis noted. There is no evidence t o suggest acute appendicitis. There is probable diffuse urinary bladder wall thickening, with possible diverticulum at the dome of the bladder. Prostate gland and seminal vesicles are unremarkable. No ascites. Impression: Multiple pulmonary nodules, as detailed above, highly suspicious for metastatic disease. Largest nodu les of the left lower lobe measuring 1.7 cm in diameter. Hepatic metastatic/neoplastic disease, similar to prior exam. Underlying cirrhosis, unchanged. Stable hypodense splenic lesion, possibly a cyst. Cholelithiasis. Stable left hydroureteronephrosis. Diffuse urinary bladder wall thickening. Correlate for cystitis. Single borderline enlarged right axillary lymph nodes, nonspecific. Reviewed, dictated and finalized at location M. Impression: Multiple pulmonary nodules, as detailed above, highly suspicious for metastatic disease. Largest nodules of the left lower lobe measuring 1.7 cm in diameter. Hepatic metastatic/neoplastic disease, similar to prior exam. Underlying cirrho sis, unchanged. Stable hypodense splenic lesion, possibly a cyst. Cholelithiasis. Stable left hydroureteronephrosis. Diffuse urinary bladder wall thickening. Correlate for cystitis. Single borderline enlarged right axillary lymph nodes, nonspecific.
== END 2022-07-21 09:07 | disposition home or self-care (01) ==
LOC: ANHIMG 09:09
PROVIDERS: PCP Family Medicine; Visit Provider Internal Medicine Hematology & Oncology
DX: C18.8 Malignant neoplasm of overlapping sites of colon (principal); K80.20 Calculus of gallbladder without cholecystitis without obstruction
CPT/HCPCS: 71260; 74177; Q9967

== ENCOUNTER 2022-10-18 08:25 | Outpatient (CLI) | payer MEDICARE, MEDICAID, SELFPAY ==
--- NOTE | ~2022-10-18 | CT_ITS ---
Clinical Indication: Colon cancer CT Scan of the Chest, Abdomen, and Pelvis with Contrast: Technique: Contiguous sections were acquired throughout the chest, abdomen, and pelvis after intraven ous administration of 100 cc of Omnipaque 350. Dose reduction technique was used on this scan by carley case automated exposure control and iterative reconstruction technique. The dose-length product (DL P) was 1225.73 mGy-cm. COMPARISON: 07/21/2022 Findings: There is no evidence of any significant mediastinal, hilar or axillary lymphadenopathy. The mediastin al soft tissues and vascular structures appear normal. There is no evidence of pleural or pericardial effusion. 5 mm right upper lobe pulmonary nodule is unchanged (axial image 30). 7 mm right upper lobe pulmonary nodule anteriorly is unchanged (axial image 55). Additional 6 mm right upper lobe pulmonary nodule ( axial image 61) is increased in size from prior exam. 1.8 cm left lower lobe pulmonary nodule is gibson lar to prior exam (axial image 74). 4 mm left upper lobe pulmonary nodule is similar to prior exam (a xial image 25). Ill-defined hypodense hepatic mass measures approximately 6 cm in diameter, probably minimally decrea sed in extent from prior exam. 1 cm satellite lesion is similar to prior exam (axial image 97). Stabl e splenic cystic lesion. The pancreas and adrenal glands are within normal limits. Calcified gallston es are present. Moderate bilateral hydroureteronephrosis is worsened from prior exam. There is mild e nhancement of the left renal urothelium with possible minimally decreased areas of left renal parench ymal enhancement. No evidence of aortic aneurysm. No lymphadenopathy. No bowel obstruction or bowel wall thickening. Rectosigmoid anastomosis noted. There is no evidence t o suggest acute appendicitis. There is diffuse urinary bladder wall thickening, with urinary bladder diverticulum at the anterosupe rior aspect. There are mildly enlarged bilateral pelvic sidewall lymph nodes. Small fat-containing bi lateral inguinal hernias are present. Impression: Hepatic and pulmonary metastatic disease, as detailed above, overall similar to prior exam. Dominant hepatic lesion may be minimally improved. One of the pulmonary nodules appears to mildly increased fr om prior exam. Mildly prominent bilateral pelvic sidewall lymph nodes, stable from prior exam. These could be reacti ve versus metastatic lymph nodes. Worsening moderate bilateral hydroureteronephrosis. There is hyperenhancement of left renal collectin g system urothelium with questionable minimal interval decrease enhancement. Correlate for pyelonephr itis/ascending urinary tract infection. Diffuse urinary bladder wall thickening is consistent with cystitis, with small bladder diverticulum. Cholelithiasis. Small bilateral fat-containing inguinal hernias. Reviewed, dictated and finalized at location . Impression: Hepatic and pulmonary metastatic disease, as detailed above, overall similar to prior exam. Dominant hepatic lesion may be minimally improved. One of the pulm onary nodules appears to mildly increased from prior exam. Mildly prominent bilateral pelvic sidewall lymph nodes, stable from prior exam. These could be reactive versus metastatic lymph nodes. Worsening moderate bilateral hydroureteronephrosis. There is hyperenhancement o f left renal collecting system urothelium with questionable minimal interval de crease enhancement. Correlate for pyelonephritis/ascending urinary tract infect ion. Diffuse urinary bladder wall thickening is consistent with cystitis, with small bladder diverticulum. Cholelithiasis. Small bilateral fat-containing inguinal hernias.
== END 2022-10-18 08:26 | disposition home or self-care (01) ==
PROVIDERS: PCP Family Medicine; Visit Provider Internal Medicine Hematology & Oncology
DX: C18.8 Malignant neoplasm of overlapping sites of colon (principal); K80.20 Calculus of gallbladder without cholecystitis without obstruction; K40.20 Bilateral inguinal hernia, without obstruction or gangrene, not specified as recurrent
CPT/HCPCS: 71260; 74177; Q9967

== ENCOUNTER 2022-10-20 09:37 | Inpatient (IN) | payer MEDICARE, MEDICAID, SELFPAY ==
[2022-10-20] VITALS (15 sets, daily range): BP systolic 94–128; BP diastolic 57–95; PULSE 62–118; RESP 14–18; TEMP 36.3–36.4; O2SAT 92–100; BMI 26.4
--- NOTE | ~2022-10-20 | XR_ITS ---
EXAMINATION: XR toe 3rd RT min 2V DATE: 10/20/2022 11:37 INDICATION: Right third toe wound and swelling and erythema. TECHNIQUE: 4 views of right third toe were obtained. COMPARISON: Right foot radiograph 08/23/2013 FINDINGS: There is absence of tuft of second distal phalanx. There is absence of head of second proxi mal phalanx. There is likely ankylosis of second proximal and middle phalanges. There are erosions at third proximal interphalangeal joint. There is deformity and likely ankylosis involving fourth proxi mal and middle phalanges. Osteopenia is noted. There is no acute fracture. IMPRESSION: 1. Erosions of third proximal interphalangeal joint, consistent with septic versus inflammatory arthr opathy. Reviewed, dictated and finalized at location A. IMPRESSION: 1. Erosions of third proximal interphalangeal joint, consistent with septic kedar alysia inflammatory arthropathy.
[2022-10-20 10:14] LABS: Basophils Absolute Auto 0.1 K/mm3 (0.0-0.1); Eosinophils Absolute Auto 0.3 K/mm3 (0-0.3); Eosinophils Percent Auto 5.3 % (0-4.4); Hematocrit 36.3 % (42.0-52.0); Hemoglobin 11.7 g/dL (14.0-18.0); Immature Granulocyte Absolute 0.04 K/mm3 (0.00-0.031); Immature Granulocyte Percent A 0.8 % (0-0.5); Lymphocytes Absolute Auto 1.91 K/mm3 (0.9-3.2); Lymphocytes Percent Auto 38.8 % (18.3-44.2); Mean Corpuscular HGB Conc 32.2 g/dl (32-36); Mean Corpuscular Hemoglobin 30.8 pg (26-34); Mean Corpuscular Volume 95.5 fl (80-100); Mean Platelet Volume 10.1 fl (7.4-10.4); Monocytes Absolute Auto 0.5 K/mm3 (0.1-0.6); Monocytes Percent Auto 10.8 % (2.6-8.5); Neutrophils Absolute Auto 2.1 K/mm3 (1.3-6.7); Neutrophils Percent Auto 43.3 % (45.5-73.1); Platelet Count Result 243 k/mm3 (150-375); Red Cell Distribution Width 17.1 % (11.5-14.5); White Blood Count 4.9 K/mm3 (4.5-10.0)
[2022-10-20 10:25] LABS: Lactic Acid Reflex 1.6 mmol/L (0.7-2.0)
[2022-10-20 11:26] LABS: Erythrocyte Sedimentation Rate 69 mm/hr (0-20)
[2022-10-20 11:27] LABS: Alanine Aminotransferase 22 U/L (6-50); Albumin Level 3.8 g/dL (3.5-5.1); Alkaline Phosphatase 208 U/L (38-126); Anion Gap 10 mmol/L (8-16); Aspartate Amino Transferase 23 U/L (17-59); Bilirubin,Total 0.7 mg/dL (0.2-1.3); Blood Urea Nitrogen 26 mg/dL (9-20); CRP 3.6 mg/dL (<1.0); Calcium 9.1 mg/dL (8.4-10.2); Carbon Dioxide 25 mmol/L (22-30); Chloride 97 mmol/L (98-107); Estimated CRCL calculation 65 ml/min; Estimated Glomerular Filt Rate > 60; Glucose 122 mg/dL (65-110); Potassium 3.8 mmol/L (3.4-5.0); Sodium 132 mmol/L (137-145)
--- NOTE | 2022-10-20 11:34 | ED.WOUNDLAC ---
HPI - Wound/Laceration General Chief Complaint: Wound/Laceration <MELANIE Little Last Filed: 10/20/22 18:48> Stated Complaint: infected toe <MELANIE Little Last Filed: 10/20/22 18:48> Time Seen by Provider: 10/20/22 09:53 <MELANIE Little Last Filed: 10/20/22 18:48> Source: patient <MELANIE Little Last Filed: 10/20/22 18:48> Mode of arrival: ambulatory <MELANIE Little Last Filed: 10/20/22 18:48> Limitations: no limitations <MELANIE Little Last Filed: 10/20/22 18:48> History of Present Illness HPI narrative: Patient is a 71 y/o male, with PMH of DM and metastatic colon CA, who presents to the ED with c/o wound to R 3rd toe. Patient reports he has had a chronic wound to his right third toe for some time now. He has been seeing wound care for this for several weeks. He saw wound care today and was referred here for further evaluation due to his toe looking increasingly swollen, red, drainage, appeared to have a hole extending to the bone. Patient states he has been cleaning and dressing the wound at home by himself. He reports some discomfort. Denies numbness. He denies any fevers. Denies nausea or vomiting. <MELANIE Little Last Filed: 10/20/22 18:48> Related Data Home Medications: Home Medications Medication Instructions Recorded Confirmed fluticasone propionate 50 2 spray intranasal DAILY 02/05/19 10/20/22 mcg/actuation nasal spray,suspension (Allergy Relief (fluticasone)) cyanocobalamin (vitamin B-12) 500 mcg PO DAILY 12/10/19 10/20/22 1,000 mcg tablet (Vitamin B-12) ferrous sulfate 325 mg (65 mg 325 mg PO Q12H 12/10/19 10/20/22 iron) tablet diltiazem HCl 240 mg capsule,24 240 mg PO DAILY 06/03/20 10/20/22 hr,extended release multivitamin 1 tablet PO DAILY 10/08/20 10/20/22 simvastatin 10 mg tablet 10 mg PO DAILY 03/06/22 10/20/22 loratadine 10 mg tablet (Claritin) 10 mg PO DAILY PRN Allergies 10/20/22 10/20/22 nitrofurantoin 100 mg PO BID 10/20/22 10/20/22 monohydrate/macrocrystals 100 mg capsule potassium chloride 20 mEq 20 meq PO BID 10/20/22 10/20/22 tablet,extended release(part/cryst) (Klor-Con M) <Dora Carrera PA-C - Last Filed: 10/20/22 18:48> Allergies/Adverse Reactions: Allergies Allergy/AdvReac Type Severity Reaction Status Date / Time vancomycin Allergy Rash Verified 10/11/22 13:47 <Dora Carrera PA-C - Last Filed: 10/20/22 18:48> Review of Systems Review of Systems: CONSTITUTIONAL: Denies fever, chills, or sweats. SKIN: See HPI. MUSCULOSKELETAL: See HPI. NEUROLOGIC: Denies headache, numbness, or weakness. <Dora Carrera PA-C - Last Filed: 10/20/22 18:48> All systems reviewed & are unremarkable except as noted in HPI and below <Dora Carrera PA-C - Last Filed: 10/20/22 18:48> [facility] Past Medical History Medical History: Medical History Adenocarcinoma of sigmoid colon (~07/28/18) Status post low anterior resection and chemotherapy. Atrial fibrillation Atrial fibrillation with rapid ventricular response Bilateral leg ulcer Cellulitis Chemotherapy induced diarrhea Chronic anemia Colon cancer Receiving chemotherapy treatment. Congestive heart failure Echocardiogram in January 2020 showed mildly enlarged left ventricle with mild reduction left ventricular function with an EF of 45 to 50% as well as significant biatrial dilatation and small amounts of atrial, mitral, and tricuspid regurgitation. Diabetic peripheral neuropathy Essential hypertension Foot ulcer Gout Hydronephrosis Hyponatremia Incomplete right bundle branch block Ischemia Learning disability [employer] current use of anticoagulant On warfarin for stroke prophylaxis due to atrial fibrillation. Malignant neoplasm of overlapping sites of colon [employer]
[2022-10-20] MEDS: metroNIDAZOLE 500 MG/ISO 100ML 500 MG/100 ML BAG 100 MG IVPB (13:08)
[2022-10-20] MEDS: CEFEPIME 2 GM/NS 50 ML 2 GM/50 ML BAG IVPB ×2 (13:09→20:40)
--- NOTE | 2022-10-20 14:02 | PM.CNGS ---
Assessment and Plan Assessment and plan (1) Open wound of right great toe: Code(s): S91.101A - Unspecified open wound of right great toe without damage to nail, initial encounter Status: Acute Assessment and Plan: patient will need amputation of right 3rd toe, discussed with patient in detail and he is amendable to proceeding with the procedure, IV antibiotics for now (2) Type 2 diabetes mellitus with other circulatory complications: Code(s): E11.59 - Type 2 diabetes mellitus with other circulatory complications Status: Chronic Assessment and Plan: will need good blood sugar control to allow healing postop History of Present Illness Consult details Consult date: 10/20/22 Reason for consult: wound care Requesting physician: Dora Carrera PA-C Narrative: The patient is a 71-year-old male with multiple medical issues, including cognitive impaired, emergency department for worsening right 3rd toe wound. The patient is a poor historian so most history is obtained via nursing and chart. Apparently the patient has had this wound for quite a while and has been following with Podiatry. The patient was seen in our wound clinic today and it was felt that he would likely need amputation. The patient of note has had previous amputation of his left 2nd toe. The patient has multiple comorbidities including diabetes, peripheral neuropathy, colon cancer. Review of Systems Review of Systems: ROS unobtainable: Yes unobtainable due to mental status PMFSH Past Medical History Medical History Adenocarcinoma of sigmoid colon (~07/28/18) Status post low anterior resection and chemotherapy. Atrial fibrillation Atrial fibrillation with rapid ventricular response Bilateral leg ulcer Cellulitis Chemotherapy induced diarrhea Chronic anemia Colon cancer Receiving chemotherapy treatment. Congestive heart failure Echocardiogram in January 2020 showed mildly enlarged left ventricle with mild reduction left ventricular function with an EF of 45 to 50% as well as significant biatrial dilatation and small amounts of atrial, mitral, and tricuspid regurgitation. Diabetic peripheral neuropathy Essential hypertension Foot ulcer Gout Hydronephrosis Hyponatremia Incomplete right bundle branch block Ischemia Learning disability detention current use of anticoagulant On warfarin for stroke prophylaxis due to atrial fibrillation. Malignant neoplasm of overlapping sites of colon Metabolic syndrome Metabolic syndrome X Mixed hyperlipidemia Neuropathy Osteomyelitis Status post amputation of left 2nd toe. Pancytopenia Peripheral vascular disease Right foot ulcer Shock Thrombocytopenia Toe osteomyelitis, left Type 2 diabetes mellitus Ulceration Unspecified atrial fibrillation Urinary retention Varicose veins of bilateral lower extremities with other complications Wound of left foot Wound of skin Surgical History Surgical History History of amputation of lesser toe of left foot Treatment of osteomyelitis in 10/2013 & 01/2015. History of partial colectomy (~07/2017) Hand assisted laparoscopic low anterior resection with colorectal anastomosis for treatment of colon cancer. History of removal of pigmented skin lesion History of skin graft To poorly healing wound of the lower extremity. Port-A-Cath in place Family History Family History Mother Diabetes mellitus Father Cerebrovascular accident Other Family history of arthritis Family history of cardiovascular disease Family history of heart disease in male family member before age 55 Family history of thyroid disease Social History Social History Social History: The patient lives alone in his own apartment in [place]. He is single and
--- NOTE | 2022-10-20 14:35 | ADMGEN ---
This patient, Donaldo Booker, was admitted to [facility] Surg Room 315-02. Patient/family oriented to hospital policies and general routines including ID bracelet, bed and alarms, visiting hours, pain management, procedures, bathroom and other care routines, personal items, smoking policy, room service/diet, and visiting hours. Information on how to activate the Rapid Response Team has been discussed. Patient/Family are encouraged to report perceived risks to care and to ask questions if they do not understand what they are told or what they should do.
--- NOTE | 2022-10-20 16:27 | PM.IMHP ---
H&P: HPI History of Present Illness Date/Time: 10/20/22 18:30 Chief Complaint: Infected toe ulcer. Narrative: This is a very pleasant 71-year-old male with atrial fibrillation, mildly reduced LV function on echocardiogram in January 2020, hypertension, anemia, and type 2 diabetes mellitus who presented to the emergency department from the wound care clinic for evaluation of an infected toe ulcer. Patient provides the following history. There has been a wound present on the dorsal aspect of his right 3rd toe for about a month. He was referred to the Wound Care Clinic and at his follow-up appointment today the wound looked worse and he was directed to the ER. The patient noticed a couple of days ago that the toe started to swell and appeared a bit red. He has also started to have some discharge coming from the wound. He has some mild discomfort of that toe and that seems to be worse with weight-bearing though it is not significant. He denies fever, chills, sweats, nausea, and vomiting. His glucose has been well controlled. He has no known history of multidrug resistant organisms. Vital signs were stable on arrival to the ED. Labs showed a normal white blood cell count, CRP of 3.6, and a random glucose of 122. X-ray of the toe showed arose and of the 3rd proximal interphalangeal joint consistent with septic versus inflammatory arthropathy. He is being admitted in this setting for IV antibiotics and surgery consultation. Review of Systems Review of Systems: Twelve systems were reviewed and are negative except for as per HPI. [facility] Past Medical History Medical History (Updated 10/20/22 @ 22:48 by Tracie You PA-C) 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 Atrial fibrillation Chronic anemia Colon cancer Receiving chemotherapy treatment. Congestive heart failure Echocardiogram in January 2020 showed mildly enlarged left ventricle with mild reduction left ventricular function with an EF of 45 to 50% as well as significant biatrial dilatation and small amounts of atrial, mitral, and tricuspid regurgitation. Diabetic peripheral neuropathy Essential hypertension Gout Incomplete right bundle branch block Learning disability [employer] current use of anticoagulant On warfarin for stroke prophylaxis due to atrial fibrillation. Mixed hyperlipidemia Neuropathy Osteomyelitis Status post amputation of left 2nd toe. Peripheral vascular disease Thrombocytopenia Toe osteomyelitis, left Type 2 diabetes mellitus Surgical History Surgical History History of amputation of lesser toe of left foot Treatment of osteomyelitis in 10/2013 & 01/2015. History of partial colectomy (~07/2017) Hand assisted laparoscopic low anterior resection with colorectal anastomosis for treatment of colon cancer. History of removal of pigmented skin lesion History of skin graft To poorly healing wound of the lower extremity. Port-A-Cath in place Family History Family History Mother Diabetes mellitus Father Cerebrovascular accident Other Family history of arthritis Family history of cardiovascular disease Family history of heart disease in male family member before age 55 Family history of thyroid disease Social History Social History Social History: The patient lives alone in his own apartment in [place]. He is single and never had children. 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 Lifelong nonsmoker. No alcohol or illicit substance use. Very active in his shinto. He is not certain who he would want to be his surrogate decision maker at this time and wishes to think about it. Full code. Caffeine- Smoking status: Never smoker Second hand tobacco smoke exposure: No
[2022-10-20] MEDS: metroNIDAZOLE 250 MG TABLET 500 MG PO (20:42)
[2022-10-20] MEDS: LINEZOLID 600 MG TABLET PO (20:42)
[2022-10-20 21:11] LABS: Glucose Point of Care 133 mg/dl (65-105)
[2022-10-21] MEDS: SILVERGEL (ELTA) 45 ML 1 APPLIC TOPICAL ×2 (04:52→18:30)
[2022-10-21] MEDS: metroNIDAZOLE 250 MG TABLET 500 MG PO ×3 (05:17→20:12)
[2022-10-21 05:22] VITALS: BP 104/62
[2022-10-21 05:45] VITALS: PULSE 71; RESP 16; TEMP 36.6; O2SAT 98
[2022-10-21 06:15] LABS: Hematocrit 31.9 % (42.0-52.0); Hemoglobin 10.3 g/dL (14.0-18.0); Mean Corpuscular HGB Conc 32.3 g/dl (32-36); Mean Corpuscular Hemoglobin 30.6 pg (26-34); Mean Corpuscular Volume 94.7 fl (80-100); Platelet Count Result 202 k/mm3 (150-375); Red Blood Count 3.37 M/mm3 (4.6-6.20); White Blood Count 3.4 K/mm3 (4.5-10.0)
[2022-10-21 06:27] LABS: Hemoglobin A1C 6.1 % (<5.7)
[2022-10-21 06:36] LABS: Anion Gap 4 mmol/L (8-16); Blood Urea Nitrogen 28 mg/dL (9-20); Calcium 8.4 mg/dL (8.4-10.2); Carbon Dioxide 25 mmol/L (22-30); Chloride 100 mmol/L (98-107); Estimated CRCL calculation 46 ml/min; Estimated Glomerular Filt Rate 50; Glucose 104 mg/dL (65-110); Potassium 3.9 mmol/L (3.4-5.0); Sodium 129 mmol/L (137-145)
--- NOTE | 2022-10-21 08:08 | PC.NURSE ---
Patient is having procedure at 1030. Keeping patient NPO for procedure.
[2022-10-21 08:15] LABS: Glucose Point of Care 98 mg/dl (65-105)
[2022-10-21] MEDS: CEFEPIME 2 GM/NS 50 ML 2 GM/50 ML BAG IVPB ×2 (09:53→20:12)
[2022-10-21] MEDS: FLUTICASONE PROPIONATE 0.05% NA SPR 16 GM BTL (*BKC) 2 SPRAY NASAL (10:00)
[2022-10-21] MEDS: TRIAMCINOLONE ACET 0.1% CREAM 15 GM TUBE 1 APPLIC TOPICAL ×3 (10:00→17:49)
--- NOTE | 2022-10-21 10:59 | PC.NURSE ---
Desizing Machine Operator called Pre-Op and confirmed that patient is having surgery tomorrow on 10/22/2022. Will give medications going forward from this time now. Patient will be NPO at midnight.
[2022-10-21 11:39] LABS: Glucose Point of Care 113 mg/dl (65-105)
--- NOTE | 2022-10-21 12:47 | PM.PNGS ---
Progress Note: A&P Assessment and Plan (1) Ulcer of toe of right foot: Qualifiers: Non-pressure ulcer stage: unspecified non-pressure ulcer stage Qualified Code(s): L97.519 - Non-pressure chronic ulcer of other part of right foot with unspecified severity Code(s): L97.519 - Non-pressure chronic ulcer of other part of right foot with unspecified severity Status: Acute Assessment and Plan: will setup for amputation in OR tomorrow, cont local wound care and abx for now Subjective Subjective Date/Time Seen: 10/21/22 12:47 Interval history: no acute issues Review of Systems Review of Systems: All systems reviewed & are unremarkable except as noted in HPI and below Exam Const: General: cooperative, comfortable and no acute distress Resp: Auscultation: clear to auscultation bilaterally Cardio: Rate: regular rate Rhythm: regular rhythm GI: Inspection: normal to inspection Extrem: Other: R 3rd toe - inflamed, fluctuant, +cellulitis, drainage from open wound Objective Data Vital Signs Vital Signs: Vital Signs - 24 hr 10/20/22 13:00 10/20/22 13:01 10/20/22 13:15 Temperature Pulse Rate 67 Respiratory Rate 17 Blood Pressure 94/61 L Pulse Oximetry 92 100 100 Oxygen Delivery 10/20/22 13:16 10/20/22 13:19 10/20/22 13:30 Temperature Pulse Rate 67 Respiratory Rate 16 Blood Pressure 105/58 L Pulse Oximetry 100 100 100 Oxygen Delivery 10/20/22 13:31 10/20/22 13:45 10/20/22 14:12 Temperature Pulse Rate 62 71 Respiratory Rate 18 17 Blood Pressure 104/57 L Pulse Oximetry 100 100 94 Oxygen Delivery 10/20/22 16:03 10/20/22 14:35 10/20/22 20:35 Temperature 36.4 C 36.3 C L Pulse Rate 99 118 H Respiratory Rate 14 16 Blood Pressure 111/69 117/78 Pulse Oximetry 100 100 Oxygen Delivery Room Air 10/21/22 05:22 10/21/22 05:45 10/21/22 10:00 Temperature 36.6 C Pulse Rate 71 Respiratory Rate 16 Blood Pressure 104/62 Pulse Oximetry 98 Oxygen Delivery Room Air Intake/Output Intake/Output: Intake & Output 10/18/22 10/19/22 10/20/22 10/21/22 23:59 23:59 23:59 23:59 Intake Total 1162 50 Output Total 200 725 Balance 962 -675 Meds/Results Medications: Active Medications Generic Name Dose Route Start Last Admin Trade Name Freq PRN Reason Stop Dose Admin Acetaminophen 650 mg 10/20/22 13:16 Acetaminophen 325 Mg Tablet PO Q4H PRN Mild Pain (1-3) or Fever Allopurinol 300 mg 10/21/22 09:00 10/21/22 08:09 Allopurinol 300 Mg Tablet PO Not Given DAILY [facility] Cyanocobalamin 500 mcg 10/21/22 09:00 10/21/22 08:09 Cyanocobalamin 500 Mcg Tablet PO Not Given DAILY [facility] Dextrose 12.5 gm 10/20/22 13:16 Dextrose 50% 25 Gm/50 Ml Syringe IV PUSH PRN PRN Hypoglycemia Protocol Diltiazem HCl 240 mg 10/21/22 09:00 10/21/22 08:09 Diltiazem Hcl Cd 240 Mg Cap.24hr PO Not Given DAILY [facility] Empagliflozin 10 mg 10/21/22 09:00 10/21/22 08:09 Empagliflozin 10 Mg Tablet PO Not Given DAILY [facility] Famotidine 20 mg 10/20/22 19:39 Famotidine 20 Mg Tablet PO BID PRN heartburn Ferrous Sulfate 325 mg 10/21/22 09:00 10/21/22 08:09 Ferrous Sulfate [address] PO Not Given Q12HR [facility] Finasteride 5 mg 10/21/22 09:00 10/21/22 08:09 Finasteride 5 Mg Tablet PO Not Given QAM [facility] Fluticasone Propionate 2 spray 10/21/22 09:00 10/21/22 10:00 Fluticasone Propionate 0.05% Na Spr 16 Gm Btl (*Bkc) NASAL 2 spray DAILY [facility] Administration Glucagon 1 mg 10/20/22 13:16 Glucagon For Inj 1 Mg Vial IM PRN PRN Hypoglycemia Protocol Glucose 15 gm 10/20/22 13:16 Glucose Oral Gel 15 Gm Of Glucse In 37.5 Gm Tube PO PRN PRN Hypoglycemia Protocol Cefepime HCl 2 gm in 50 mls @ 100 mls/hr 10/20/22 21:00 10/21/22 10:23 Maxipime 2 Gm/Ns 50 Ml IVPB Infused Q12HR [facility] I
[2022-10-21 14:00] VITALS: BP 93/59; PULSE 102; RESP 22; TEMP 35.9; O2SAT 100
--- NOTE | 2022-10-21 16:10 | PM.IMPN ---
Progress Note: A&P Assessment and Plan (1) Cellulitis of third toe of right foot: Code(s): L03.031 - Cellulitis of right toe Status: Acute (2) Open wound of right great toe: Code(s): S91.101A - Unspecified open wound of right great toe without damage to nail, initial encounter Status: Acute (3) Diabetic foot ulcer: Code(s): E11.621 - Type 2 diabetes mellitus with foot ulcer; L97.509 - Non-pressure chronic ulcer of other part of unspecified foot with unspecified severity Status: Acute (4) Type 2 diabetes mellitus: Code(s): E11.9 - Type 2 diabetes mellitus without complications Status: Acute (5) Atrial fibrillation: Qualifiers: Atrial fibrillation type: unspecified chronic Qualified Code(s): I48.20 - Chronic atrial fibrillation, unspecified Code(s): I48.91 - Unspecified atrial fibrillation Status: Chronic Plan A 71-year-old male with past medical history of diabetes and metastatic colon cancer presents to the ED with right 3rd toe wound acute on chronic with increased swelling redness and drainage. He has been followed by a wound care. No fever. Lactic acid was normal no leukocytosis. ESR 69 CRP 3.6. X-ray of to with erosions noted septic versus inflammatory arthropathy. Started on the nasal bleed due to vancomycin allergy along with cefepime and metronidazole. General surgery has been consulted and plan for amputation in a.m.. Has underlying atrial fibrillation on metoprolol not on anticoagulation due to hematuria in the past. History of metastatic colon cancer on chemotherapy. Chronic kidney disease stage 3 type 2 diabetes mellitus on oral hypoglycemic agent. Used to be on insulin. A1c at 10.3. Subjective Date/time seen: 10/21/22 16:10 Interval history: No overnight events. Feels okay. Going for surgery tomorrow Review of Systems Review of Systems: Twelve systems were reviewed and are negative except for as per HPI. Exam Narrative: General: Nontoxic-appearing male sitting up in bed in no acute distress. HEENT: PERRL, EOMI. Sclera anicteric. Oral mucosa moist. Neck: Supple. Nontender Respiratory: Lungs are clear to auscultation bilaterally. Cardiovascular: Irregularly irregular rate and rhythm. Gastrointestinal: Abdomen is soft, nontender, and nondistended with positive bowel sounds. Skin: Warm and dry. Chronic hyperpigmentation of the lower legs bilaterally. Small open wound on the dorsum of the right 3rd toe with surrounding erythema and edema tracking to the dorsum of the foot. Malodorous serosanguineous drainage. Extremities: No cyanosis or clubbing. Trace pretibial edema bilaterally. Neurological: Alert. Cranial nerves 2-12 are grossly intact. No gross focal deficits to casual conversation. Psychiatric: Pleasant and cooperative with normal mood and affect. Objective Data Vital Signs Vital Signs: Vital Signs - 24 hr 10/20/22 20:35 10/21/22 05:22 10/21/22 05:45 Temperature 97.3 F L 97.8 F Pulse Rate 118 H 71 Respiratory Rate 16 16 Blood Pressure 117/78 104/62 Pulse Oximetry 100 98 Oxygen Delivery 10/21/22 10:00 10/21/22 14:00 Temperature 96.7 F L Pulse Rate 102 H Respiratory Rate 22 H Blood Pressure 93/59 L Pulse Oximetry 100 Oxygen Delivery Room Air Intake/Output Intake/Output: Intake & Output 10/18/22 10/19/22 10/20/22 10/21/22 23:59 23:59 23:59 23:59 Intake Total 1162 1290 Output Total 200 950 Balance 962 340 Meds/Results Medications: Active Medications Generic Name Dose Route Start Last Admin Trade Name Freq PRN Reason Stop Dose Admin Acetaminophen 650 mg 10/20/22 13:16 Acetaminophen 325 Mg Tablet PO Q4H PRN Mild Pain (1-3) or Fever Allopurinol 300 mg 10/21/22 09:00 10/21/22 08:09 Allopurinol 300 Mg Tablet PO Not Given DAILY [facility] Cyanocobalamin 500 mcg 10/21/22 09:00 10/21/22 08:09 Cyanocobalamin 500 Mcg Tablet PO
[2022-10-21 16:31] LABS: Glucose Point of Care 118 mg/dl (65-105)
[2022-10-21 16:49] VITALS: BP 97/64
[2022-10-21] MEDS: POTASSIUM CHLORIDE 20 MEQ ER TABLET PO (17:48)
[2022-10-21] MEDS: FERROUS SULFATE 325 MG TABLET DR PO (20:12)
[2022-10-21] MEDS: LINEZOLID 600 MG TABLET PO (20:12)
[2022-10-21 20:26] LABS: Glucose Point of Care 157 mg/dl (65-105)
[2022-10-21 20:43] VITALS: BP 114/74; PULSE 96; RESP 16; TEMP 36.3; O2SAT 100
[2022-10-22] VITALS (11 sets, daily range): BP systolic 90–124; BP diastolic 56–84; PULSE 56–108; RESP 12–16; TEMP 36.1–36.7; O2SAT 98–100
[2022-10-22] MEDS: metroNIDAZOLE 250 MG TABLET 500 MG PO ×3 (05:56→21:02)
[2022-10-22 06:05] LABS: Alanine Aminotransferase 16 U/L (6-50); Albumin Level 3.3 g/dL (3.5-5.1); Alkaline Phosphatase 185 U/L (38-126); Anion Gap 6 mmol/L (8-16); Aspartate Amino Transferase 19 U/L (17-59); Bilirubin,Total 0.5 mg/dL (0.2-1.3); Blood Urea Nitrogen 24 mg/dL (9-20); Calcium 8.5 mg/dL (8.4-10.2); Carbon Dioxide 24 mmol/L (22-30); Chloride 102 mmol/L (98-107); Estimated CRCL calculation 54 ml/min; Estimated Glomerular Filt Rate 60; Glucose 100 mg/dL (65-110); Magnesium 1.6 mg/dL (1.6-2.3); Potassium 3.9 mmol/L (3.4-5.0); Sodium 132 mmol/L (137-145)
[2022-10-22 06:15] LABS: Basophils Absolute Auto 0.1 K/mm3 (0.0-0.1); Basophils Percent Auto 1.3 % (0.2-1.2); Eosinophils Absolute Auto 0.2 K/mm3 (0-0.3); Eosinophils Percent Auto 3.9 % (0-4.4); Hematocrit 32.1 % (42.0-52.0); Hemoglobin 10.4 g/dL (14.0-18.0); Immature Granulocyte Absolute 0.02 K/mm3 (0.00-0.031); Immature Granulocyte Percent A 0.5 % (0-0.5); Lymphocytes Absolute Auto 1.53 K/mm3 (0.9-3.2); Lymphocytes Percent Auto 40.2 % (18.3-44.2); Mean Corpuscular HGB Conc 32.4 g/dl (32-36); Mean Corpuscular Volume 95.5 fl (80-100); Mean Platelet Volume 10.4 fl (7.4-10.4); Monocytes Absolute Auto 0.5 K/mm3 (0.1-0.6); Monocytes Percent Auto 12.9 % (2.6-8.5); Neutrophils Absolute Auto 1.6 K/mm3 (1.3-6.7); Neutrophils Percent Auto 41.2 % (45.5-73.1); Platelet Count Result 188 k/mm3 (150-375); Red Blood Count 3.36 M/mm3 (4.6-6.20); Red Cell Distribution Width 17.2 % (11.5-14.5); White Blood Count 3.8 K/mm3 (4.5-10.0)
[2022-10-22 07:55] LABS: Glucose Point of Care 104 mg/dl (65-105)
[2022-10-22] MEDS: METOPROLOL SUCCINATE EXT REL 100 MG TABCR PO (08:17)
[2022-10-22] MEDS: TRIAMCINOLONE ACET 0.1% CREAM 15 GM TUBE 1 APPLIC TOPICAL ×3 (08:17→16:29)
[2022-10-22] MEDS: LINEZOLID 600 MG TABLET PO ×2 (08:17→21:02)
[2022-10-22] MEDS: allopurinoL 300 MG TABLET PO (08:17)
[2022-10-22] MEDS: CEFEPIME 2 GM/NS 50 ML 2 GM/50 ML BAG IVPB ×2 (08:17→21:02)
[2022-10-22] MEDS: dilTIAZem HCL CD 240 MG CAP.24HR PO (08:18)
[2022-10-22 09:56] LABS: Glucose Point of Care 125 mg/dl (65-105)
--- NOTE | 2022-10-22 09:57 | WPDANESEPPF ---
Anes - Initial Pre Proc Eval Procedure: Operation Date: 10/22/22 10:30 Proposed Procedures p Right Third Toe Amputation - Lili Butler MD Date/Time: 10/22/22 09:57 Surgeon: Joanna Jeffries MD Pre Op Diagnosis: Diabetic cellulitis R3rd toe concern for osteo Patient Data Age: 71 Gender: M Height: 1.8 m Weight: 86 kg Last Vital Signs Temp 36.7 C 10/22/22 09:19 Pulse 75 10/22/22 09:19 Resp 16 10/22/22 09:19 BP 109/83 10/22/22 09:19 Pulse Ox 100 10/22/22 09:19 O2 Del Method Room Air 10/22/22 09:19 Allergies Allergy/AdvReac Type Severity Reaction Status Date / Time vancomycin Allergy Rash Verified 10/22/22 09:44 Home Medications Medication Instructions Recorded Confirmed Type fluticasone propionate 50 2 spray intranasal DAILY 02/05/19 10/20/22 History mcg/actuation nasal spray,suspension (Allergy Relief (fluticasone)) cyanocobalamin (vitamin B-12) 500 mcg PO DAILY 12/10/19 10/20/22 History 1,000 mcg tablet (Vitamin B-12) ferrous sulfate 325 mg (65 mg 325 mg PO Q12H 12/10/19 10/20/22 History iron) tablet diltiazem HCl 240 mg capsule,24 240 mg PO DAILY 06/03/20 10/20/22 History hr,extended release multivitamin 1 tablet PO DAILY 10/08/20 10/20/22 History triamcinolone acetonide 0.1 % 1 applic topical TID #80 grams 08/19/21 10/20/22 Rx topical cream simvastatin 10 mg tablet 10 mg PO DAILY 03/06/22 10/20/22 History famotidine 20 mg tablet 20 mg PO BID PRN heartburn #180 07/09/22 10/20/22 Rx tabs finasteride 5 mg tablet (Proscar) 5 mg PO QAM #90 tabs 08/10/22 10/20/22 Rx allopurinol 300 mg tablet 300 mg PO DAILY #90 tabs 08/12/22 10/20/22 Rx metoprolol succinate 100 mg 100 mg PO QAM #90 tabs 08/12/22 10/20/22 Rx tablet,extended release 24 hr (Toprol XL) empagliflozin 10 mg tablet 10 mg PO DAILY #30 tabs 09/06/22 10/20/22 Rx (Jardiance) silver 200 mcg/gram topical gel 1 applic topical DAILY #90 grams 10/11/22 10/20/22 Rx (Silver-Sept) sitagliptin phosphate 100 mg 100 mg PO DAILY #30 tabs 10/18/22 10/20/22 Rx tablet (Januvia) loratadine 10 mg tablet (Claritin) 10 mg PO DAILY PRN Allergies 10/20/22 10/20/22 History nitrofurantoin 100 mg PO BID 10/20/22 10/20/22 History monohydrate/macrocrystals 100 mg capsule potassium chloride 20 mEq 20 meq PO BID 10/20/22 10/20/22 History tablet,extended release(part/cryst) (Klor-Con M) Laboratory Tests 10/21/22 10/21/22 10/21/22 11:23 16:17 20:16 WBC RBC Hgb Hct MCV MCH MCHC RDW Plt Count MPV Immature Gran % (Auto) Neut % (Auto) Lymph % (Auto) [place] % (Auto) Eos % (Auto) Baso % (Auto) Lymph # (Auto) [place] # (Auto) Eos # (Auto) Baso # (Auto) Abs Immat Gran (auto) Absolute Neuts (auto) Absolute Nucleated RBC Nucleated RBC % Sodium Potassium Chloride Carbon Dioxide Anion Gap BUN Creatinine Estim Creat Clear Calc Estimated GFR Glucose POC Capillary Glucose 113 H mg/dl 118 H mg/dl 157 H mg/dl (65-105) (65-105) (65-105) Calcium Magnesium Total Bilirubin AST ALT Alkaline Phosphatase Total Protein Albumin 10/22/22 10/22/22 10/22/22 05:32 07:46 09:41 WBC 3.8 L K/mm3 (4.5-10.0) RBC 3.36 L M/mm3 (4.6-6.20) Hgb 10.4 L g/dL (14.0-18.0) Hct 32.1 L % (42.0-52.0) MCV 95.5 fl (80-100) MCH 31.0 pg (26-34) MCHC 32.4 g/dl (32-36) RDW 17.2 H % (11.5-14.5) Plt Count
--- NOTE | 2022-10-22 10:14 | WPDHPUPDATE1 ---
History and Physical Update Update Date/Time: 10/22/22 10:14 History and Physical has been reviewed, including an updated exam of the patient. There are NO changes in the patient's condition. Risks, benefits, and alternatives have been discussed and questions answered. Patient agrees to proceed with procedure.
[2022-10-22] MEDS: LIDOCAINE HCL 1% LOCAL INJ 20 ML VIAL INFILTRATE (10:54)
[2022-10-22] MEDS: LACTATED RINGERS 1,000 ML 30 ML IV CONT (11:23)
[2022-10-22 11:45] LABS: Glucose Point of Care 117 mg/dl (65-105)
--- NOTE | 2022-10-22 11:45 | W.PM.PROC2 ---
Procedure Note - Detailed Date of Procedure 10/22/22 Pre-op Diagnosis Right 3rd toe diabetic foot infection, osteomyelitis Post-op Diagnosis Same Procedure Performed amputation right 3rd toe Surgeon Lili Butler MD Anesthesia General and Local Indications 71-year-old male with multiple medical issues presenting with chronically infected wound right 3rd toe with evidence of osteomyelitis Findings ulcer with base noted to have exposed bone, bone very brittle and consistent with osteomyelitis Description of Procedure The patient was taken to the operating room placed in the supine position. After induction general anesthesia, the patient is prepped and draped in the normal sterile fashion. A time-out was then done to verify the patient's identity as well as the procedure being performed. I began by making the skin incision around the 3rd toe, was done in a fishmouth fashion to facilitate closure. Once incision was made I used the Bovie cautery to get down to the subcutaneous tissue and finally to the bony elements. Near the area of the metatarsal, I was able to disarticulate the toe from the metatarsal head itself. There was no evidence of infection in this area. Of the bone of the toe itself was noted to be very brittle consistent with osteomyelitis. The specimen will be sent to pathology for further review. Once the toe was amputated, again hemostasis with the Bovie cautery. I then closed the subcutaneous tissue over the bone hole using 0 Vicryl suture. I then closed the skin and subcutaneous tissue using 0 PDS suture in interrupted mattress fashion. Sterile dressing was then placed. The patient tolerated the procedure well and was extubated postoperatively. He will be transferred to the recovery room in stable condition. Estimated Blood Loss 5 Urine Output 500 Pathology Yes Complications No immediate complications Condition Stable Disposition PACU [facility] Billing Surgery - Charge Forward: Surgery Billing
--- NOTE | 2022-10-22 11:46 | SUR.PHASEI ---
1145 - pt states without pain. blood glucose 117.
[2022-10-22] MEDS: POTASSIUM CHLORIDE 20 MEQ ER TABLET PO (16:29)
[2022-10-22 16:54] LABS: Glucose Point of Care 122 mg/dl (65-105)
--- NOTE | 2022-10-22 17:23 | PM.IMPN ---
Progress Note: A&P Assessment and Plan (1) Cellulitis of third toe of right foot: Code(s): L03.031 - Cellulitis of right toe Status: Acute (2) Open wound of right great toe: Code(s): S91.101A - Unspecified open wound of right great toe without damage to nail, initial encounter Status: Acute (3) Diabetic foot ulcer: Code(s): E11.621 - Type 2 diabetes mellitus with foot ulcer; L97.509 - Non-pressure chronic ulcer of other part of unspecified foot with unspecified severity Status: Acute (4) Type 2 diabetes mellitus: Code(s): E11.9 - Type 2 diabetes mellitus without complications Status: Acute (5) Atrial fibrillation: Qualifiers: Atrial fibrillation type: unspecified chronic Qualified Code(s): I48.20 - Chronic atrial fibrillation, unspecified Code(s): I48.91 - Unspecified atrial fibrillation Status: Chronic Plan A 71-year-old male with past medical history of diabetes and metastatic colon cancer presents to the ED with right 3rd toe wound acute on chronic with increased swelling redness and drainage. He has been followed by a wound care. No fever. Lactic acid was normal no leukocytosis. ESR 69 CRP 3.6. X-ray of to with erosions noted septic versus inflammatory arthropathy. Started on the nasal bleed due to vancomycin allergy along with cefepime and metronidazole. General surgery has been consulted Has underlying atrial fibrillation on metoprolol not on anticoagulation due to hematuria in the past. History of metastatic colon cancer on chemotherapy. Chronic kidney disease stage 3 type 2 diabetes mellitus on oral hypoglycemic agent. Used to be on insulin. A1c at 10.3. Status post 3rd toe amputation 10/22/2022 Subjective Date/time seen: 10/22/22 17:23 Interval history: No overnight events. Patient underwent amputation today. Denies any pain. No fever chills Review of Systems Review of Systems: Twelve systems were reviewed and are negative except for as per HPI. Exam Narrative: General: Nontoxic-appearing male sitting up in bed in no acute distress. HEENT: PERRL, EOMI. Sclera anicteric. Oral mucosa moist. Neck: Supple. Nontender Respiratory: Lungs are clear to auscultation bilaterally. Cardiovascular: Irregularly irregular rate and rhythm. Gastrointestinal: Abdomen is soft, nontender, and nondistended with positive bowel sounds. Skin: Warm and dry. Right foot done dressing which is clean dry and intact Neurological: Alert. Cranial nerves 2-12 are grossly intact. No gross focal deficits to casual conversation. Psychiatric: Pleasant and cooperative with normal mood and affect. Objective Data Vital Signs Vital Signs: Vital Signs - 24 hr 10/21/22 20:43 10/22/22 04:58 10/22/22 08:00 Temperature 97.3 F L 97.5 F L Pulse Rate 96 108 H Respiratory Rate 16 16 Blood Pressure 114/74 109/79 Pulse Oximetry 100 100 Oxygen Delivery Room Air Oxygen Flow Rate 10/22/22 09:19 10/22/22 11:23 10/22/22 11:35 Temperature 98.0 F 97.6 F Pulse Rate 75 85 100 Respiratory Rate 16 15 16 Blood Pressure 109/83 102/63 90/63 L Pulse Oximetry 100 100 100 Oxygen Delivery Room Air Simple Face Mask Simple Face Mask Oxygen Flow Rate 7 7 10/22/22 11:50 10/22/22 12:15 10/22/22 12:30 Temperature 97.5 F L 97.4 F L Pulse Rate 100 107 H 87 Respiratory Rate 16 16 16 Blood Pressure 90/66 L 124/84 109/67 Pulse Oximetry 100 100 100 Oxygen Delivery Simple Face Mask Oxygen Flow Rate 7 10/22/22 13:00 10/22/22 14:00 Temperature 97.5 F L 97.6 F Pulse Rate 88 104 H Respiratory Rate 16 16 Blood Pressure 108/67 98/56 L Pulse Oximetry 99 98 Oxygen Delivery Oxygen Flow Rate Intake/Output Intake/Output: Intake & Output 10/19/22 10/20/22 10/21/22 10/22/22 23:59 23:59 23:59 23:59 Intake Total 1162 1830 630 Output Total 244 956 5963 Balance 962 880 -370 Meds/Results Medications: Active Medications Gen
[2022-10-22 20:51] LABS: Glucose Point of Care 137 mg/dl (65-105)
[2022-10-22] MEDS: ACETAMINOPHEN 325 MG TABLET 650 MG PO (21:01)
[2022-10-22] MEDS: FERROUS SULFATE 325 MG TABLET DR PO (21:02)
[2022-10-23 05:42] VITALS: BP 92/67; PULSE 60; RESP 13; TEMP 36.1; O2SAT 98
[2022-10-23] MEDS: metroNIDAZOLE 250 MG TABLET 500 MG PO ×3 (06:14→20:20)
[2022-10-23 06:45] LABS: Basophils Percent Auto 0.8 % (0.2-1.2); Eosinophils Absolute Auto 0.2 K/mm3 (0-0.3); Eosinophils Percent Auto 4.4 % (0-4.4); Hematocrit 31.7 % (42.0-52.0); Hemoglobin 10.1 g/dL (14.0-18.0); Immature Granulocyte Absolute 0.02 K/mm3 (0.00-0.031); Immature Granulocyte Percent A 0.6 % (0-0.5); Lymphocytes Absolute Auto 1.49 K/mm3 (0.9-3.2); Lymphocytes Percent Auto 41.3 % (18.3-44.2); Mean Corpuscular HGB Conc 31.9 g/dl (32-36); Mean Corpuscular Hemoglobin 30.8 pg (26-34); Mean Corpuscular Volume 96.6 fl (80-100); Mean Platelet Volume 9.5 fl (7.4-10.4); Monocytes Absolute Auto 0.5 K/mm3 (0.1-0.6); Monocytes Percent Auto 12.7 % (2.6-8.5); Neutrophils Absolute Auto 1.5 K/mm3 (1.3-6.7); Neutrophils Percent Auto 40.2 % (45.5-73.1); Platelet Count Result 170 k/mm3 (150-375); Red Blood Count 3.28 M/mm3 (4.6-6.20); Red Cell Distribution Width 17.4 % (11.5-14.5); White Blood Count 3.6 K/mm3 (4.5-10.0)
[2022-10-23 06:56] LABS: Alanine Aminotransferase 14 U/L (6-50); Albumin Level 2.9 g/dL (3.5-5.1); Alkaline Phosphatase 159 U/L (38-126); Anion Gap 4 mmol/L (8-16); Aspartate Amino Transferase 19 U/L (17-59); Bilirubin,Total 0.4 mg/dL (0.2-1.3); Blood Urea Nitrogen 20 mg/dL (9-20); Calcium 8.4 mg/dL (8.4-10.2); Carbon Dioxide 23 mmol/L (22-30); Chloride 105 mmol/L (98-107); Estimated CRCL calculation 58 ml/min; Estimated Glomerular Filt Rate > 60; Glucose 88 mg/dL (65-110); Magnesium 1.8 mg/dL (1.6-2.3); Potassium 3.9 mmol/L (3.4-5.0); Sodium 132 mmol/L (137-145)
[2022-10-23] MEDS: CYANOCOBALAMIN 500 MCG TABLET PO (08:36)
[2022-10-23] MEDS: CEFEPIME 2 GM/NS 50 ML 2 GM/50 ML BAG IVPB ×2 (08:36→20:20)
[2022-10-23] MEDS: EMPAGLIFLOZIN 10 MG TABLET PO (08:37)
[2022-10-23] MEDS: FINASTERIDE 5 MG TABLET PO (08:37)
[2022-10-23] MEDS: LINEZOLID 600 MG TABLET PO ×2 (08:37→20:20)
[2022-10-23] MEDS: allopurinoL 300 MG TABLET PO (08:37)
[2022-10-23] MEDS: MULTIVITAMINS THERAPEUTIC TAB (*BKC) 1 TABLET PO (08:37)
[2022-10-23 08:38] VITALS: PULSE 64
[2022-10-23] MEDS: METOPROLOL SUCCINATE EXT REL 100 MG TABCR PO (08:38)
[2022-10-23] MEDS: SIMVASTATIN 10 MG TABLET PO (08:38)
[2022-10-23] MEDS: dilTIAZem HCL CD 240 MG CAP.24HR PO (08:38)
[2022-10-23] MEDS: POTASSIUM CHLORIDE 20 MEQ ER TABLET PO ×2 (08:38→16:12)
[2022-10-23] MEDS: FLUTICASONE PROPIONATE 0.05% NA SPR 16 GM BTL (*BKC) 2 SPRAY NASAL (08:38)
[2022-10-23] MEDS: FERROUS SULFATE 325 MG TABLET DR PO ×2 (08:38→20:20)
[2022-10-23 08:39] LABS: Glucose Point of Care 93 mg/dl (65-105)
[2022-10-23] MEDS: TRIAMCINOLONE ACET 0.1% CREAM 15 GM TUBE 1 APPLIC TOPICAL ×3 (08:39→16:12)
[2022-10-23 10:05] VITALS: BP 102/87; PULSE 90; RESP 16; TEMP 36.4; O2SAT 100
--- NOTE | 2022-10-23 10:12 | PM.PNGS ---
Progress Note: A&P Assessment and Plan (1) Ulcer of toe of right foot: Qualifiers: Non-pressure ulcer stage: unspecified non-pressure ulcer stage Qualified Code(s): L97.519 - Non-pressure chronic ulcer of other part of right foot with unspecified severity Code(s): L97.519 - Non-pressure chronic ulcer of other part of right foot with unspecified severity Status: Acute Assessment and Plan: s/p amputation, cont routine postop care, local wound care, cont abx for now, ok to be OOB to chair, non wt bearing to R forefoot Subjective Subjective Date/Time Seen: 10/23/22 10:12 Interval history: feels good, no acute issues Review of Systems Review of Systems: All systems reviewed & are unremarkable except as noted in HPI and below Exam Const: General: cooperative, comfortable and no acute distress Resp: Auscultation: clear to auscultation bilaterally Cardio: Rate: regular rate Rhythm: regular rhythm GI: Inspection: normal to inspection Extrem: Other: R foot dressing C/D/I Objective Data Vital Signs Vital Signs: Vital Signs - 24 hr 10/22/22 11:23 10/22/22 11:35 10/22/22 11:50 Temperature 36.4 C Pulse Rate 85 100 100 Respiratory Rate 15 16 16 Blood Pressure 102/63 90/63 L 90/66 L Pulse Oximetry 100 100 100 Oxygen Delivery Simple Face Mask Simple Face Mask Simple Face Mask Oxygen Flow Rate 7 7 7 10/22/22 12:15 10/22/22 12:30 10/22/22 13:00 Temperature 36.4 C L 36.3 C L 36.4 C L Pulse Rate 107 H 87 88 Respiratory Rate 16 16 16 Blood Pressure 124/84 109/67 108/67 Pulse Oximetry 100 100 99 Oxygen Delivery Oxygen Flow Rate 10/22/22 14:00 10/22/22 21:00 10/22/22 20:00 Temperature 36.4 C 36.1 C L Pulse Rate 104 H 56 L Respiratory Rate 16 14 Blood Pressure 98/56 L 98/61 L Pulse Oximetry 98 100 Oxygen Delivery Room Air Oxygen Flow Rate 10/22/22 23:39 10/23/22 05:42 10/23/22 08:38 Temperature 36.3 C L 36.1 C L Pulse Rate 95 60 64 Respiratory Rate 12 13 Blood Pressure 98/58 L 92/67 L Pulse Oximetry 98 98 Oxygen Delivery Oxygen Flow Rate 10/23/22 08:30 Temperature Pulse Rate Respiratory Rate Blood Pressure Pulse Oximetry Oxygen Delivery Room Air Oxygen Flow Rate Intake/Output Intake/Output: Intake & Output 10/20/22 10/21/22 10/22/22 10/23/22 23:59 23:59 23:59 23:59 Intake Total 1162 1830 1310 600 Output Total 316 254 6506 Balance 962 880 -340 600 Meds/Results Medications: Active Medications Generic Name Dose Route Start Last Admin Trade Name Freq PRN Reason Stop Dose Admin Acetaminophen 650 mg 10/20/22 13:16 10/22/22 21:01 Acetaminophen 325 Mg Tablet PO 650 mg Q4H PRN Administration Mild Pain (1-3) or Fever Allopurinol 300 mg 10/21/22 09:00 10/23/22 08:37 Allopurinol 300 Mg Tablet PO 300 mg DAILY [facility] Administration Cyanocobalamin 500 mcg 10/21/22 09:00 10/23/22 08:36 Cyanocobalamin 500 Mcg Tablet PO 500 mcg DAILY [facility] Administration Dextrose 12.5 gm 10/20/22 13:16 Dextrose 50% 25 Gm/50 Ml Syringe IV PUSH PRN PRN Hypoglycemia Protocol Diltiazem HCl 240 mg 10/21/22 09:00 10/23/22 08:38 Diltiazem Hcl Cd 240 Mg Cap.24hr PO 240 mg DAILY [facility] Administration Empagliflozin 10 mg 10/21/22 09:00 10/23/22 08:37 Empagliflozin 10 Mg Tablet PO 10 mg DAILY [facility] Administration Famotidine 20 mg 10/20/22 19:39 Famotidine 20 Mg Tablet PO BID PRN heartburn Ferrous Sulfate 325 mg 10/21/22 09:00 10/23/22 08:38 Ferrous Sulfate [address] PO 325 mg Q12HR [facility] Administration Finasteride 5 mg 10/21/22 09:00 10/23/22 08:37 Finasteride 5 Mg Tablet PO 5 mg QAM [facility] Administration Fluticasone Propionate 2 spray 10/21/22 09:00 10/23/22 08:38 Fluticasone Propionate 0.05% Na Spr 16 Gm Btl (*Bkc) NASAL 2 spray DAILY [facility] Administration Glucagon 1 mg 10/20/22 13:16 Glucagon For Inj
[2022-10-23 12:00] LABS: Glucose Point of Care 128 mg/dl (65-105)
--- NOTE | 2022-10-23 14:04 | PM.IMPN ---
Progress Note: A&P Assessment and Plan (1) Cellulitis of third toe of right foot: Code(s): L03.031 - Cellulitis of right toe Status: Acute (2) Open wound of right great toe: Code(s): S91.101A - Unspecified open wound of right great toe without damage to nail, initial encounter Status: Acute (3) Diabetic foot ulcer: Code(s): E11.621 - Type 2 diabetes mellitus with foot ulcer; L97.509 - Non-pressure chronic ulcer of other part of unspecified foot with unspecified severity Status: Acute (4) Type 2 diabetes mellitus: Code(s): E11.9 - Type 2 diabetes mellitus without complications Status: Acute (5) Atrial fibrillation: Qualifiers: Atrial fibrillation type: unspecified chronic Qualified Code(s): I48.20 - Chronic atrial fibrillation, unspecified Code(s): I48.91 - Unspecified atrial fibrillation Status: Chronic Plan A 71-year-old male with past medical history of diabetes and metastatic colon cancer presents to the ED with right 3rd toe wound acute on chronic with increased swelling redness and drainage. He has been followed by a wound care. No fever. Lactic acid was normal no leukocytosis. ESR 69 CRP 3.6. X-ray of to with erosions noted septic versus inflammatory arthropathy. Started on the nasal bleed due to vancomycin allergy along with cefepime and metronidazole. General surgery has been consulted Has underlying atrial fibrillation on metoprolol not on anticoagulation due to hematuria in the past. History of metastatic colon cancer on chemotherapy. Chronic kidney disease stage 3 type 2 diabetes mellitus on oral hypoglycemic agent. Used to be on insulin. A1c at 10.3. 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 Urine culture growing Enterococcus unclear significance there is no UA collected. Does not report any urinary symptoms. Will check UA. Blood culture negative to date Subjective Date/time seen: 10/23/22 14:04 Interval history: pain control no overnight events remains afebrile. Review of Systems Review of Systems: All systems reviewed & are unremarkable except as noted in HPI and below Exam Narrative: General: Nontoxic-appearing male sitting up in bed in no acute distress. HEENT: PERRL, EOMI. Sclera anicteric. Oral mucosa moist. Neck: Supple. Nontender Respiratory: Lungs are clear to auscultation bilaterally. Cardiovascular: Irregularly irregular rate and rhythm. Gastrointestinal: Abdomen is soft, nontender, and nondistended with positive bowel sounds. Skin: Warm and dry. Right foot done dressing which is clean dry and intact Neurological: Alert. Cranial nerves 2-12 are grossly intact. No gross focal deficits to casual conversation. Psychiatric: Pleasant and cooperative with normal mood and affect. Objective Data Vital Signs Vital Signs: Vital Signs - 24 hr 10/22/22 21:00 10/22/22 20:00 10/22/22 23:39 Temperature 96.9 F L 97.3 F L Pulse Rate 56 L 95 Respiratory Rate 14 12 Blood Pressure 98/61 L 98/58 L Pulse Oximetry 100 98 Oxygen Delivery Room Air 10/23/22 05:42 10/23/22 08:38 10/23/22 08:30 Temperature 96.9 F L Pulse Rate 60 64 Respiratory Rate 13 Blood Pressure 92/67 L Pulse Oximetry 98 Oxygen Delivery Room Air 10/23/22 10:05 Temperature 97.6 F Pulse Rate 90 Respiratory Rate 16 Blood Pressure 102/87 Pulse Oximetry 100 Oxygen Delivery Intake/Output Intake/Output: Intake & Output 10/20/22 10/21/22 10/22/22 10/23/22 23:59 23:59 23:59 23:59 Intake Total 1162 1830 1310 960 Output Total 305 046 5958 Balance 962 880 -340 960 Meds/Results Medications: Active Medications Generic Name Dose Route Start Last Admin Trade Name Freq PRN Reason Stop Dose Admin Acetaminophen 650 mg 10/20/22 13:16 10/22/22 21:01 Acetaminophen 325 Mg Tablet PO 650 mg Q4H PRN Administration Mild Pain (1-3) or Fever Allopurinol 300 mg 10/21/22
[2022-10-23 15:05] LABS: Add Urine Microscopic? YES; Appearance Urine Turbid (Clear); Bacteria Urine 1+ /hpf; Bilirubin Urine Negative (Negative); Blood Urine 3+ (Negative); Color Urine Yellow (Yellow); Glucose Urine UA 3+ mg/dL (Negative); Ketones Urine Negative (Negative); Leukocyte Esterase Ur 3+ LEU/UL (NEGATIVE); Need Manual Microscopic Reviewed; Nitrate Urine Negative (Negative); Protein Urine 2+ mg/dL (Negative); Specific Grav Ur 1.014 (1.001-1.035); Squamous Epithelial Cell Urine Moderate /hpf (Few); Urobilinogen Urine 0.2 mg/dL (<2.0); WBC Urine >100 /hpf (0-3); pH Urine 5.5 (5.0-9.0)
--- NOTE | 2022-10-23 16:23 | WPDANESPN ---
Anes - Prog Note Post-Op Date/Time: 10/23/22 16:23 Cardiovascular status: normal Respiratory status: normal Airway patency: baseline Mental status: baseline Post-Op hydration status: normal Vital Signs: Last Vital Signs Temp 97.6 F 10/23/22 10:05 Pulse 90 10/23/22 10:05 Resp 16 10/23/22 10:05 BP 102/87 10/23/22 10:05 Pulse Ox 100 10/23/22 10:05 O2 Del Method Room Air 10/23/22 08:30 O2 Flow Rate 7 10/22/22 11:50 Pain Score (VAS): 0 I/O: Intake & Output 10/23/22 10/23/22 10/23/22 07:59 15:59 23:59 Intake Total 500 460 Balance 500 460 Laboratory Tests 10/23/22 06:28 10/23/22 06:28 10/22/22 10/22/22 10/23/22 16:52 20:42 06:28 WBC 3.6 L RBC 3.28 L Hgb 10.1 L Hct 31.7 L MCV 96.6 MCH 30.8 MCHC 31.9 L RDW 17.4 H Plt Count 170 MPV 9.5 Immature Gran % (Auto) 0.6 H Neut % (Auto) 40.2 L Lymph % (Auto) 41.3 Johnston % (Auto) 12.7 H Eos % (Auto) 4.4 Baso % (Auto) 0.8 Lymph # (Auto) 1.49 Johnston # (Auto) 0.5 Eos # (Auto) 0.2 Baso # (Auto) 0.0 Abs Immat Gran (auto) 0.02 Absolute Neuts (auto) 1.5 Absolute Nucleated RBC 0.0 Nucleated RBC % 0.0 Sodium 132 L Potassium 3.9 Chloride 105 Carbon Dioxide 23 Anion Gap 4 L BUN 20 Creatinine 1.10 Estim Creat Clear Calc 58 Estimated GFR > 60 Glucose 88 POC Capillary Glucose 122 H 137 H Calcium 8.4 Magnesium 1.8 Total Bilirubin 0.4 AST 19 ALT 14 Alkaline Phosphatase 159 H Total Protein 6.0 L Albumin 2.9 L Urine Color Urine Appearance Urine pH Ur Specific [place] Urine Protein Urine Glucose (UA) Urine Ketones Ur Blood (Man) Urine Nitrate Urine Bilirubin Urine Urobilinogen Ur Leukocyte Esterase Add Ur Microanalysis Urine RBC Urine WBC Ur Squamous Epith Cells Urine Bacteria Urine Casts 10/23/22 10/23/22 10/23/22 08:29 11:56 14:40 WBC RBC Hgb Hct MCV MCH MCHC RDW Plt Count MPV Immature Gran % (Auto) Neut % (Auto) Lymph % (Auto) Johnston % (Auto) Eos % (Auto) Baso % (Auto) Lymph # (Auto) Johnston # (Auto) Eos # (Auto) Baso # (Auto) Abs Immat Gran (auto) Absolute Neuts (auto) Absolute Nucleated RBC Nucleated RBC % Sodium Potassium Chloride Carbon Dioxide Anion Gap BUN Creatinine Estim Creat Clear Calc Estimated GFR Glucose POC Capillary Glucose 93 128 H Calcium Magnesium Total Bilirubin AST ALT Alkaline Phosphatase Total Protein Albumin Urine Color Yellow Urine Appearance Turbid H Urine pH 5.5 Ur Specific [place] 1.014 Urine Protein 2+ H Urine Glucose (UA) 3+ H Urine Ketones Negative Ur Blood (Man) 3+ H Urine Nitrate Negative Urine Bilirubin Negative Urine Urobilinogen 0.2 Ur Leukocyte Esterase 3+ H Add Ur Microanalysis Reviewed Urine RBC 6-10 H Urine WBC >100 H Ur Squamous Epith Cells Moderate Urine Bacteria 1+ H Urine Casts 11-20 Post-procedural complaints: none Patient Feedback: Patient satisfied with anesthetic care.
[2022-10-23 17:40] LABS: Glucose Point of Care 115 mg/dl (65-105)
[2022-10-23 20:37] LABS: Glucose Point of Care 148 mg/dl (65-105)
[2022-10-23 21:34] VITALS: BP 102/53; PULSE 53; RESP 13; TEMP 36.6; O2SAT 99
[2022-10-24] MEDS: metroNIDAZOLE 250 MG TABLET 500 MG PO ×3 (05:46→21:51)
[2022-10-24 05:50] VITALS: BP 108/62
[2022-10-24 06:00] VITALS: PULSE 95; RESP 12; TEMP 37.4; O2SAT 98
[2022-10-24 06:44] LABS: Basophils Percent Auto 0.7 % (0.2-1.2); Eosinophils Absolute Auto 0.3 K/mm3 (0-0.3); Eosinophils Percent Auto 5.6 % (0-4.4); Hematocrit 32.7 % (42.0-52.0); Hemoglobin 10.4 g/dL (14.0-18.0); Immature Granulocyte Absolute 0.04 K/mm3 (0.00-0.031); Immature Granulocyte Percent A 0.9 % (0-0.5); Lymphocytes Percent Auto 44.9 % (18.3-44.2); Mean Corpuscular HGB Conc 31.8 g/dl (32-36); Mean Corpuscular Hemoglobin 31.1 pg (26-34); Mean Corpuscular Volume 97.9 fl (80-100); Mean Platelet Volume 9.9 fl (7.4-10.4); Monocytes Absolute Auto 0.6 K/mm3 (0.1-0.6); Monocytes Percent Auto 13.5 % (2.6-8.5); Neutrophils Absolute Auto 1.5 K/mm3 (1.3-6.7); Neutrophils Percent Auto 34.4 % (45.5-73.1); Platelet Count Result 194 k/mm3 (150-375); Red Blood Count 3.34 M/mm3 (4.6-6.20); Red Cell Distribution Width 17.6 % (11.5-14.5); White Blood Count 4.5 K/mm3 (4.5-10.0)
[2022-10-24 07:15] LABS: Alanine Aminotransferase 14 U/L (6-50); Alkaline Phosphatase 140 U/L (38-126); Anion Gap 2 mmol/L (8-16); Aspartate Amino Transferase 27 U/L (17-59); Bilirubin,Total 0.6 mg/dL (0.2-1.3); Blood Urea Nitrogen 22 mg/dL (9-20); Calcium 8.1 mg/dL (8.4-10.2); Carbon Dioxide 20 mmol/L (22-30); Chloride 106 mmol/L (98-107); Estimated CRCL calculation 50 ml/min; Estimated Glomerular Filt Rate 54; Glucose 88 mg/dL (65-110); Magnesium 1.9 mg/dL (1.6-2.3); Potassium 4.3 mmol/L (3.4-5.0); Sodium 128 mmol/L (137-145)
[2022-10-24 07:29] LABS: Glucose Point of Care 95 mg/dl (65-105)
[2022-10-24] MEDS: FLUTICASONE PROPIONATE 0.05% NA SPR 16 GM BTL (*BKC) 2 SPRAY NASAL (08:09)
[2022-10-24] MEDS: POTASSIUM CHLORIDE 20 MEQ ER TABLET PO ×2 (08:09→16:12)
[2022-10-24] MEDS: SIMVASTATIN 10 MG TABLET PO (08:10)
[2022-10-24] MEDS: MULTIVITAMINS THERAPEUTIC TAB (*BKC) 1 TABLET PO (08:10)
[2022-10-24] MEDS: FERROUS SULFATE 325 MG TABLET DR PO ×2 (08:10→21:50)
[2022-10-24] MEDS: CYANOCOBALAMIN 500 MCG TABLET PO (08:10)
[2022-10-24] MEDS: FINASTERIDE 5 MG TABLET PO (08:10)
[2022-10-24] MEDS: dilTIAZem HCL CD 240 MG CAP.24HR PO (08:10)
[2022-10-24 08:11] VITALS: PULSE 94
[2022-10-24] MEDS: EMPAGLIFLOZIN 10 MG TABLET PO (08:11)
[2022-10-24] MEDS: METOPROLOL SUCCINATE EXT REL 100 MG TABCR PO (08:11)
[2022-10-24] MEDS: allopurinoL 300 MG TABLET PO (08:11)
[2022-10-24] MEDS: CEFEPIME 2 GM/NS 50 ML 2 GM/50 ML BAG IVPB ×2 (08:11→21:50)
[2022-10-24] MEDS: TRIAMCINOLONE ACET 0.1% CREAM 15 GM TUBE 1 APPLIC TOPICAL ×3 (08:12→16:12)
[2022-10-24] MEDS: LINEZOLID 600 MG TABLET PO ×2 (08:12→21:51)
[2022-10-24 11:31] LABS: Glucose Point of Care 157 mg/dl (65-105)
--- NOTE | 2022-10-24 11:31 | PM.PNGS ---
Progress Note: A&P Assessment and Plan (1) Open wound of right great toe: Code(s): S91.101A - Unspecified open wound of right great toe without damage to nail, initial encounter Status: Acute Assessment and Plan: doing well, cont local wound care, will assess wound tomorrow Subjective Subjective Date/Time Seen: 10/24/22 11:31 Interval history: no acute issues, feels good Review of Systems Review of Systems: All systems reviewed & are unremarkable except as noted in HPI and below Exam Const: General: cooperative, comfortable and no acute distress Resp: Auscultation: clear to auscultation bilaterally Cardio: Rate: regular rate Rhythm: regular rhythm GI: Inspection: normal to inspection Extrem: Other: dressing C/D/I Objective Data Vital Signs Vital Signs: Vital Signs - 24 hr 10/23/22 21:34 10/23/22 20:00 10/24/22 05:50 Temperature 36.6 C Pulse Rate 53 L Respiratory Rate 13 Blood Pressure 102/53 L 108/62 Pulse Oximetry 99 Oxygen Delivery Room Air 10/24/22 06:00 10/24/22 08:11 10/24/22 08:00 Temperature 37.4 C Pulse Rate 95 94 Respiratory Rate 12 Blood Pressure Pulse Oximetry 98 Oxygen Delivery Room Air 10/24/22 09:19 Temperature Pulse Rate Respiratory Rate Blood Pressure Pulse Oximetry Oxygen Delivery Room Air Intake/Output Intake/Output: Intake & Output 10/21/22 10/22/22 10/23/22 10/24/22 23:59 23:59 23:59 23:59 Intake Total 1830 1310 1550 668 Output Total 950 1650 300 Balance 880 -340 1250 668 Meds/Results Medications: Active Medications Generic Name Dose Route Start Last Admin Trade Name Freq PRN Reason Stop Dose Admin Acetaminophen 650 mg 10/20/22 13:16 10/22/22 21:01 Acetaminophen 325 Mg Tablet PO 650 mg Q4H PRN Administration Mild Pain (1-3) or Fever Allopurinol 300 mg 10/21/22 09:00 10/24/22 08:11 Allopurinol 300 Mg Tablet PO 300 mg DAILY SOCRATES Administration Cyanocobalamin 500 mcg 10/21/22 09:00 10/24/22 08:10 Cyanocobalamin 500 Mcg Tablet PO 500 mcg DAILY SOCRATES Administration Dextrose 12.5 gm 10/20/22 13:16 Dextrose 50% 25 Gm/50 Ml Syringe IV PUSH PRN PRN Hypoglycemia Protocol Diltiazem HCl 240 mg 10/21/22 09:00 10/24/22 08:10 Diltiazem Hcl Cd 240 Mg Cap.24hr PO 240 mg DAILY SOCRATES Administration Empagliflozin 10 mg 10/21/22 09:00 10/24/22 08:11 Empagliflozin 10 Mg Tablet PO 10 mg DAILY SOCRATES Administration Famotidine 20 mg 10/20/22 19:39 Famotidine 20 Mg Tablet PO BID PRN heartburn Ferrous Sulfate 325 mg 10/21/22 09:00 10/24/22 08:10 Ferrous Sulfate [address] PO 325 mg Q12HR SOCRATES Administration Finasteride 5 mg 10/21/22 09:00 10/24/22 08:10 Finasteride 5 Mg Tablet PO 5 mg QAM SOCRATES Administration Fluticasone Propionate 2 spray 10/21/22 09:00 10/24/22 08:09 Fluticasone Propionate 0.05% Na Spr 16 Gm Btl (*Bkc) NASAL 2 spray DAILY SOCRATES Administration Glucagon 1 mg 10/20/22 13:16 Glucagon For Inj 1 Mg Vial IM PRN PRN Hypoglycemia Protocol Glucose 15 gm 10/20/22 13:16 Glucose Oral Gel 15 Gm Of Glucse In 37.5 Gm Tube PO PRN PRN Hypoglycemia Protocol Cefepime HCl 2 gm in 50 mls @ 100 mls/hr 10/20/22 21:00 10/24/22 08:45 Maxipime 2 Gm/Ns 50 Ml IVPB Infused Q12HR SOCRATES Infusion Dextrose 1,000 mls @ 100 mls/hr 10/20/22 13:16 Dextrose 5% 1,000 Ml IVPB PRN PRN Hypoglycemia Protocol Insulin Aspart 2 - 5 units 10/21/22 08:00 10/24/22 09:05 Insulin Aspart (*Bkc) 100 Units/Ml SUB-Q Not Given TIDWM SOCRATES Protocol Insulin Aspart 1 - 2 units 10/21/22 21:00 10/23/22 22:12 Insulin Aspart (*Bkc) 100 Units/Ml SUB-Q Not Given HS SOCRATES Protocol Linezolid 600 mg 10/20/22 21:00 10/24/22 08:12 Linezolid 600 Mg Tablet PO 600 mg Q12HR SOCRATES Administration Loratadine 10 mg 08/09
--- NOTE | 2022-10-24 13:49 | PM.IMPN ---
Progress Note: A&P Assessment and Plan (1) Cellulitis of third toe of right foot: Code(s): L03.031 - Cellulitis of right toe Status: Acute (2) Open wound of right great toe: Code(s): S91.101A - Unspecified open wound of right great toe without damage to nail, initial encounter Status: Acute (3) Diabetic foot ulcer: Code(s): E11.621 - Type 2 diabetes mellitus with foot ulcer; L97.509 - Non-pressure chronic ulcer of other part of unspecified foot with unspecified severity Status: Acute (4) Type 2 diabetes mellitus: Code(s): E11.9 - Type 2 diabetes mellitus without complications Status: Acute (5) Atrial fibrillation: Qualifiers: Atrial fibrillation type: unspecified chronic Qualified Code(s): I48.20 - Chronic atrial fibrillation, unspecified Code(s): I48.91 - Unspecified atrial fibrillation Status: Chronic Plan A 71-year-old male with past medical history of diabetes and metastatic colon cancer presents to the ED with right 3rd toe wound acute on chronic with increased swelling redness and drainage. He has been followed by a wound care. No fever. Lactic acid was normal no leukocytosis. ESR 69 CRP 3.6. X-ray of to with erosions noted septic versus inflammatory arthropathy. Started on the nasal bleed due to vancomycin allergy along with cefepime and metronidazole. General surgery has been consulted Has underlying atrial fibrillation on metoprolol not on anticoagulation due to hematuria in the past. History of metastatic colon cancer on chemotherapy. Chronic kidney disease stage 3 type 2 diabetes mellitus on oral hypoglycemic agent. Used to be on insulin. A1c at 10.3. 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 Urine culture growing Enterococcus unclear significance there is no UA collected. Does not report any urinary symptoms. repeat UA is still looks infected. Will start Augmentin and give a 7 day course. Enterococcus growing in urine culture sensitive to ampicillin. Culture from toe is pending Subjective Date/time seen: 10/24/22 13:49 Interval history: no overnight events. Foot feels okay. Denies any fever chills. Lives at home alone Review of Systems Review of Systems: All systems reviewed & are unremarkable except as noted in HPI and below Exam Narrative: General: Nontoxic-appearing male sitting up in bed in no acute distress. HEENT: PERRL, EOMI. Sclera anicteric. Oral mucosa moist. Neck: Supple. Nontender Respiratory: Lungs are clear to auscultation bilaterally. Cardiovascular: Irregularly irregular rate and rhythm. Gastrointestinal: Abdomen is soft, nontender, and nondistended with positive bowel sounds. Skin: Warm and dry. Right foot done dressing which is clean dry and intact Neurological: Alert. Cranial nerves 2-12 are grossly intact. No gross focal deficits to casual conversation. Psychiatric: Pleasant and cooperative with normal mood and affect. Objective Data Vital Signs Vital Signs: Vital Signs - 24 hr 10/23/22 21:34 10/23/22 20:00 10/24/22 05:50 Temperature 97.9 F Pulse Rate 53 L Respiratory Rate 13 Blood Pressure 102/53 L 108/62 Pulse Oximetry 99 Oxygen Delivery Room Air 10/24/22 06:00 10/24/22 08:11 10/24/22 08:00 Temperature 99.3 F Pulse Rate 95 94 Respiratory Rate 12 Blood Pressure Pulse Oximetry 98 Oxygen Delivery Room Air 10/24/22 09:19 Temperature Pulse Rate Respiratory Rate Blood Pressure Pulse Oximetry Oxygen Delivery Room Air Intake/Output Intake/Output: Intake & Output 10/21/22 10/22/22 10/23/22 10/24/22 23:59 23:59 23:59 23:59 Intake Total 1830 1310 1550 908 Output Total 950 1650 300 Balance 880 -340 1250 908 Meds/Results Medications: Active Medications Generic Name Dose Route Start Last Admin Trade Name Freq PRN Reason Stop Dose Admin Acetaminophen 650 mg 10/20/22 13:16 10/22/22 21:01
[2022-10-24 14:00] VITALS: BP 99/62; PULSE 101; RESP 12; O2SAT 100
[2022-10-24 16:47] LABS: Glucose Point of Care 141 mg/dl (65-105)
[2022-10-24 21:33] LABS: Glucose Point of Care 106 mg/dl (65-105)
[2022-10-24] MEDS: AMOXICILLIN/CLAVULANATE K 875-125 MG TAB 1 TABLET PO (21:50)
[2022-10-24 22:00] VITALS: BP 116/71; PULSE 80; RESP 16; TEMP 35.6; O2SAT 100
[2022-10-25] MEDS: metroNIDAZOLE 250 MG TABLET 500 MG PO (05:18)
[2022-10-25 05:58] VITALS: BP 99/53; PULSE 72; RESP 16; TEMP 36; O2SAT 100
[2022-10-25 06:32] LABS: Basophils Absolute Auto 0.1 K/mm3 (0.0-0.1); Basophils Percent Auto 1.1 % (0.2-1.2); Eosinophils Absolute Auto 0.4 K/mm3 (0-0.3); Eosinophils Percent Auto 8.5 % (0-4.4); Hematocrit 33.4 % (42.0-52.0); Hemoglobin 10.4 g/dL (14.0-18.0); Immature Granulocyte Absolute 0.05 K/mm3 (0.00-0.031); Immature Granulocyte Percent A 1.1 % (0-0.5); Lymphocytes Absolute Auto 1.74 K/mm3 (0.9-3.2); Lymphocytes Percent Auto 37.2 % (18.3-44.2); Mean Corpuscular HGB Conc 31.1 g/dl (32-36); Mean Corpuscular Hemoglobin 30.7 pg (26-34); Mean Corpuscular Volume 98.5 fl (80-100); Mean Platelet Volume 10.1 fl (7.4-10.4); Monocytes Absolute Auto 0.6 K/mm3 (0.1-0.6); Neutrophils Absolute Auto 1.8 K/mm3 (1.3-6.7); Neutrophils Percent Auto 39.1 % (45.5-73.1); Platelet Count Result 195 k/mm3 (150-375); Red Blood Count 3.39 M/mm3 (4.6-6.20); Red Cell Distribution Width 17.6 % (11.5-14.5); White Blood Count 4.7 K/mm3 (4.5-10.0)
[2022-10-25 06:57] LABS: Alanine Aminotransferase 14 U/L (6-50); Alkaline Phosphatase 153 U/L (38-126); Anion Gap 5 mmol/L (8-16); Aspartate Amino Transferase 22 U/L (17-59); Bilirubin,Total 0.4 mg/dL (0.2-1.3); Blood Urea Nitrogen 26 mg/dL (9-20); Calcium 8.6 mg/dL (8.4-10.2); Carbon Dioxide 21 mmol/L (22-30); Chloride 105 mmol/L (98-107); Estimated CRCL calculation 43 ml/min; Estimated Glomerular Filt Rate 46; Glucose 86 mg/dL (65-110); Potassium 4.4 mmol/L (3.4-5.0); Sodium 131 mmol/L (137-145)
[2022-10-25 07:46] LABS: Glucose Point of Care 105 mg/dl (65-105)
[2022-10-25] MEDS: AMOXICILLIN/CLAVULANATE K 875-125 MG TAB 1 TABLET PO (09:01)
[2022-10-25] MEDS: CEFEPIME 2 GM/NS 50 ML 2 GM/50 ML BAG IVPB (09:03)
[2022-10-25] MEDS: MULTIVITAMINS THERAPEUTIC TAB (*BKC) 1 TABLET PO (09:03)
[2022-10-25] MEDS: FERROUS SULFATE 325 MG TABLET DR PO ×2 (09:03→20:26)
[2022-10-25] MEDS: allopurinoL 300 MG TABLET PO (09:03)
[2022-10-25] MEDS: EMPAGLIFLOZIN 10 MG TABLET PO (09:04)
[2022-10-25] MEDS: FINASTERIDE 5 MG TABLET PO (09:04)
[2022-10-25] MEDS: CYANOCOBALAMIN 500 MCG TABLET PO (09:04)
[2022-10-25] MEDS: FLUTICASONE PROPIONATE 0.05% NA SPR 16 GM BTL (*BKC) 2 SPRAY NASAL (09:04)
[2022-10-25] MEDS: dilTIAZem HCL CD 240 MG CAP.24HR PO (09:04)
[2022-10-25 09:05] VITALS: PULSE 66
[2022-10-25] MEDS: METOPROLOL SUCCINATE EXT REL 100 MG TABCR PO (09:05)
[2022-10-25] MEDS: LINEZOLID 600 MG TABLET PO ×2 (09:05→20:26)
[2022-10-25] MEDS: TRIAMCINOLONE ACET 0.1% CREAM 15 GM TUBE 1 APPLIC TOPICAL ×3 (09:06→17:09)
[2022-10-25] MEDS: POTASSIUM CHLORIDE 20 MEQ ER TABLET PO ×2 (09:06→17:09)
--- NOTE | 2022-10-25 11:27 | PM.PNGS ---
Progress Note: A&P Assessment and Plan (1) Open wound of right great toe: Code(s): S91.101A - Unspecified open wound of right great toe without damage to nail, initial encounter Status: Acute Assessment and Plan: local wound care, no s/s further infection, could probably stop abx at this point, will need f/u c wound care and suture removal in 10 days or so Subjective Subjective Date/Time Seen: 10/25/22 11:27 Interval history: doing well, no acute issues Review of Systems Review of Systems: All systems reviewed & are unremarkable except as noted in HPI and below Exam Const: General: cooperative, comfortable and no acute distress Resp: Auscultation: clear to auscultation bilaterally Cardio: Rate: regular rate Rhythm: regular rhythm GI: Inspection: normal to inspection Extrem: Other: wound undressed and healing well, no s/s infection Objective Data Vital Signs Vital Signs: Vital Signs - 24 hr 10/24/22 14:00 10/24/22 22:00 10/25/22 05:58 Temperature 35.6 C L 36.0 C L Pulse Rate 101 H 80 72 Respiratory Rate 12 16 16 Blood Pressure 99/62 L 116/71 99/53 L Pulse Oximetry 100 100 100 Oxygen Delivery 10/25/22 09:05 10/25/22 09:00 Temperature Pulse Rate 66 Respiratory Rate Blood Pressure Pulse Oximetry Oxygen Delivery Room Air Intake/Output Intake/Output: Intake & Output 10/22/22 10/23/22 10/24/22 10/25/22 23:59 23:59 23:59 23:59 Intake Total 1310 1550 1198 260 Output Total 1650 300 335 Balance -340 1250 1198 -75 Meds/Results Medications: Active Medications Generic Name Dose Route Start Last Admin Trade Name Freq PRN Reason Stop Dose Admin Acetaminophen 650 mg 10/20/22 13:16 10/22/22 21:01 Acetaminophen 325 Mg Tablet PO 650 mg Q4H PRN Administration Mild Pain (1-3) or Fever Allopurinol 300 mg 10/21/22 09:00 10/25/22 09:03 Allopurinol 300 Mg Tablet PO 300 mg DAILY SOCRATES Administration Amoxicillin/Clavulanate Potassium 1 tablet 10/24/22 21:00 10/25/22 09:01 Amoxicillin/Clavulanate K 875-125 Mg Tab PO 1 tablet Q12HR SOCRATES Administration Cyanocobalamin 500 mcg 10/21/22 09:00 10/25/22 09:04 Cyanocobalamin 500 Mcg Tablet PO 500 mcg DAILY SOCRATES Administration Dextrose 12.5 gm 10/20/22 13:16 Dextrose 50% 25 Gm/50 Ml Syringe IV PUSH PRN PRN Hypoglycemia Protocol Diltiazem HCl 240 mg 10/21/22 09:00 10/25/22 09:04 Diltiazem Hcl Cd 240 Mg Cap.24hr PO 240 mg DAILY SOCRATES Administration Empagliflozin 10 mg 10/21/22 09:00 10/25/22 09:04 Empagliflozin 10 Mg Tablet PO 10 mg DAILY SOCRATES Administration Famotidine 20 mg 10/20/22 19:39 Famotidine 20 Mg Tablet PO BID PRN heartburn Ferrous Sulfate 325 mg 10/21/22 09:00 10/25/22 09:03 Ferrous Sulfate [address] PO 325 mg Q12HR SOCRATES Administration Finasteride 5 mg 10/21/22 09:00 10/25/22 09:04 Finasteride 5 Mg Tablet PO 5 mg QAM SOCRATES Administration Fluticasone Propionate 2 spray 10/21/22 09:00 10/25/22 09:04 Fluticasone Propionate 0.05% Na Spr 16 Gm Btl (*Bkc) NASAL 2 spray DAILY SOCRATES Administration Glucagon 1 mg 10/20/22 13:16 Glucagon For Inj 1 Mg Vial IM PRN PRN Hypoglycemia Protocol Glucose 15 gm 10/20/22 13:16 Glucose Oral Gel 15 Gm Of Glucse In 37.5 Gm Tube PO PRN PRN Hypoglycemia Protocol Cefepime HCl 2 gm in 50 mls @ 100 mls/hr 10/20/22 21:00 10/25/22 09:33 Maxipime 2 Gm/Ns 50 Ml IVPB Infused Q12HR SOCRATES Infusion Dextrose 1,000 mls @ 100 mls/hr 10/20/22 13:16 Dextrose 5% 1,000 Ml IVPB PRN PRN Hypoglycemia Protocol Insulin Aspart 2 - 5 units 10/21/22 08:00 10/25/22 08:04 Insulin Aspart (*Bkc) 100 Units/Ml SUB-Q Not Given TIDWM SOCRATES Protocol Insulin Aspart 1 - 2 units 10/21/22 21:00 10/24/22 21:39 Insulin Aspart (*Bkc) 100 Units/Ml SUB-Q Not Given HS SOCRATES Protoc
[2022-10-25 11:41] LABS: Glucose Point of Care 125 mg/dl (65-105)
[2022-10-25 14:00] VITALS: BP 104/61; PULSE 79; RESP 18; TEMP 35.6; O2SAT 99
--- NOTE | 2022-10-25 14:23 | PM.IMPN ---
Progress Note: A&P Assessment and Plan (1) Cellulitis of third toe of right foot: Code(s): L03.031 - Cellulitis of right toe Status: Acute (2) Open wound of right great toe: Code(s): S91.101A - Unspecified open wound of right great toe without damage to nail, initial encounter Status: Acute (3) Diabetic foot ulcer: Code(s): E11.621 - Type 2 diabetes mellitus with foot ulcer; L97.509 - Non-pressure chronic ulcer of other part of unspecified foot with unspecified severity Status: Acute (4) Type 2 diabetes mellitus: Code(s): E11.9 - Type 2 diabetes mellitus without complications Status: Acute (5) Atrial fibrillation: Qualifiers: Atrial fibrillation type: unspecified chronic Qualified Code(s): I48.20 - Chronic atrial fibrillation, unspecified Code(s): I48.91 - Unspecified atrial fibrillation Status: Chronic Plan A 71-year-old male with past medical history of diabetes and metastatic colon cancer presents to the ED with right 3rd toe wound acute on chronic with increased swelling redness and drainage. He has been followed by a wound care. No fever. Lactic acid was normal no leukocytosis. ESR 69 CRP 3.6. X-ray of to with erosions noted septic versus inflammatory arthropathy. Started on the nasal bleed due to vancomycin allergy along with cefepime and metronidazole. General surgery has been consulted Has underlying atrial fibrillation on metoprolol not on anticoagulation due to hematuria in the past. History of metastatic colon cancer on chemotherapy. Chronic kidney disease stage 3 type 2 diabetes mellitus on oral hypoglycemic agent. Used to be on insulin. A1c at 10.3. 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 Urine culture growing Enterococcus unclear significance there is no UA collected. Does not report any urinary symptoms. repeat UA is still looks infected. Started on Augmentin 10/24/2022. But with diarrhea will stop this and changes antibiotics to Unasyn. Discussed with ID pharmacist. Enterococcus growing in urine culture sensitive to ampicillin. Culture from toe is pending. [facility]mita surgery reports continue local wound care with no signs or symptoms of infection follow-up wound care and suture removal in 10 days. Subjective Date/time seen: 10/25/22 14:23 Interval history: habits few episodes of diarrhea last night. Per nursing staff it is already more former. No nausea vomiting abdominal pain. Meds afebrile. Review of Systems Review of Systems: All systems reviewed & are unremarkable except as noted in HPI and below Exam Narrative: General: Nontoxic-appearing male sitting up in bed in no acute distress. HEENT: PERRL, EOMI. Sclera anicteric. Oral mucosa moist. Neck: Supple. Nontender Respiratory: Lungs are clear to auscultation bilaterally. Cardiovascular: Irregularly irregular rate and rhythm. Gastrointestinal: Abdomen is soft, nontender, and nondistended with positive bowel sounds. Skin: Warm and dry. Right foot done dressing which is clean dry and intact Neurological: Alert. Cranial nerves 2-12 are grossly intact. No gross focal deficits to casual conversation. Psychiatric: Pleasant and cooperative with normal mood and affect. Objective Data Vital Signs Vital Signs: Vital Signs - 24 hr 10/24/22 22:00 10/25/22 05:58 10/25/22 09:05 Temperature 96.1 F L 96.8 F L Pulse Rate 80 72 66 Respiratory Rate 16 16 Blood Pressure 116/71 99/53 L Pulse Oximetry 100 100 Oxygen Delivery 10/25/22 09:00 10/25/22 14:00 Temperature 96.0 F L Pulse Rate 79 Respiratory Rate 18 Blood Pressure 104/61 Pulse Oximetry 99 Oxygen Delivery Room Air Intake/Output Intake/Output: Intake & Output 10/22/22 10/23/22 10/24/22 10/25/22 23:59 23:59 23:59 23:59 Intake Total 1310 1550 1198 500 Output Total 1650 300 335 Balance -340 1250 1198 165 Meds/Results Medications: Active Medicatio
--- NOTE | 2022-10-25 14:26 | PM.IMPN ---
Progress Note: A&P Assessment and Plan (1) Cellulitis of third toe of right foot: Code(s): L03.031 - Cellulitis of right toe Status: Acute (2) Open wound of right great toe: Code(s): S91.101A - Unspecified open wound of right great toe without damage to nail, initial encounter Status: Acute (3) Diabetic foot ulcer: Code(s): E11.621 - Type 2 diabetes mellitus with foot ulcer; L97.509 - Non-pressure chronic ulcer of other part of unspecified foot with unspecified severity Status: Acute (4) Type 2 diabetes mellitus: Code(s): E11.9 - Type 2 diabetes mellitus without complications Status: Acute (5) Atrial fibrillation: Qualifiers: Atrial fibrillation type: unspecified chronic Qualified Code(s): I48.20 - Chronic atrial fibrillation, unspecified Code(s): I48.91 - Unspecified atrial fibrillation Status: Chronic Plan A 71-year-old male with past medical history of diabetes and metastatic colon cancer presents to the ED with right 3rd toe wound acute on chronic with increased swelling redness and drainage. He has been followed by a wound care. No fever. Lactic acid was normal no leukocytosis. ESR 69 CRP 3.6. X-ray of to with erosions noted septic versus inflammatory arthropathy. Started on the nasal bleed due to vancomycin allergy along with cefepime and metronidazole. General surgery has been consulted Has underlying atrial fibrillation on metoprolol not on anticoagulation due to hematuria in the past. History of metastatic colon cancer on chemotherapy. Chronic kidney disease stage 3 type 2 diabetes mellitus on oral hypoglycemic agent. Used to be on insulin. A1c at 10.3. 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 Urine culture growing Enterococcus unclear significance there is no UA collected. Does not report any urinary symptoms. repeat UA is still looks infected. Started on Augmentin 10/24/2022. But with diarrhea will stop this and changes antibiotics to Unasyn. Discussed with ID pharmacist. Enterococcus growing in urine culture sensitive to ampicillin. Culture from toe is pending. General surgery reports continue local wound care with no signs or symptoms of infection follow-up wound care and suture removal in 10 days. Will switch antibiotic to amoxicillin to cover Enterococcus in urine no further antibiotics needed for toe infection. anticipate dc in am with arragnement of home health Subjective Date/time seen: 10/25/22 14:26 Interval history: No further diarrhea feels okay. He is weight-bearing as tolerated on his right leg. Home health arranged. Still feels weak Review of Systems Review of Systems: All systems reviewed & are unremarkable except as noted in HPI and below Exam Narrative: General: Nontoxic-appearing male sitting up in bed in no acute distress. HEENT: PERRL, EOMI. Sclera anicteric. Oral mucosa moist. Neck: Supple. Nontender Respiratory: Lungs are clear to auscultation bilaterally. Cardiovascular: Irregularly irregular rate and rhythm. Gastrointestinal: Abdomen is soft, nontender, and nondistended with positive bowel sounds. Skin: Warm and dry. Right foot done dressing which is clean dry and intact Neurological: Alert. Cranial nerves 2-12 are grossly intact. No gross focal deficits to casual conversation. Psychiatric: Pleasant and cooperative with normal mood and affect. Objective Data Vital Signs Vital Signs: Vital Signs - 24 hr 10/24/22 22:00 10/25/22 05:58 10/25/22 09:05 Temperature 96.1 F L 96.8 F L Pulse Rate 80 72 66 Respiratory Rate 16 16 Blood Pressure 116/71 99/53 L Pulse Oximetry 100 100 Oxygen Delivery 10/25/22 09:00 10/25/22 14:00 Temperature 96.0 F L Pulse Rate 79 Respiratory Rate 18 Blood Pressure 104/61 Pulse Oximetry 99 Oxygen Delivery Room Air Intake/Output Intake/Output: Intake & Output 10/22/22 10/23/22 10/24/22 10/25/22 23:5
[2022-10-25 16:19] LABS: Glucose Point of Care 129 mg/dl (65-105)
[2022-10-25] MEDS: AMPICILLIN SULB 3 GM/NS 100 ML 3 GM/100 ML VIAL IVPB ×2 (17:25→23:36)
[2022-10-25] MEDS: SIMVASTATIN 10 MG TABLET PO (20:26)
[2022-10-25 21:12] LABS: Glucose Point of Care 154 mg/dl (65-105)
[2022-10-25 22:00] VITALS: BP 98/55; PULSE 78; RESP 13; TEMP 36.4; O2SAT 99
[2022-10-26 05:44] VITALS: BP 97/54; PULSE 96; RESP 14; TEMP 36.1; O2SAT 98
[2022-10-26] MEDS: AMPICILLIN SULB 3 GM/NS 100 ML 3 GM/100 ML VIAL IVPB ×2 (05:53→11:17)
[2022-10-26 06:13] LABS: Basophils Absolute Auto 0.1 K/mm3 (0.0-0.1); Basophils Percent Auto 1.2 % (0.2-1.2); Eosinophils Absolute Auto 0.4 K/mm3 (0-0.3); Eosinophils Percent Auto 9.1 % (0-4.4); Hematocrit 33.1 % (42.0-52.0); Hemoglobin 10.3 g/dL (14.0-18.0); Immature Granulocyte Absolute 0.03 K/mm3 (0.00-0.031); Immature Granulocyte Percent A 0.6 % (0-0.5); Lymphocytes Absolute Auto 1.91 K/mm3 (0.9-3.2); Lymphocytes Percent Auto 39.5 % (18.3-44.2); Mean Corpuscular HGB Conc 31.1 g/dl (32-36); Mean Corpuscular Hemoglobin 30.7 pg (26-34); Mean Corpuscular Volume 98.8 fl (80-100); Mean Platelet Volume 10.1 fl (7.4-10.4); Monocytes Absolute Auto 0.6 K/mm3 (0.1-0.6); Monocytes Percent Auto 12.8 % (2.6-8.5); Neutrophils Absolute Auto 1.8 K/mm3 (1.3-6.7); Neutrophils Percent Auto 36.8 % (45.5-73.1); Platelet Count Result 187 k/mm3 (150-375); Red Blood Count 3.35 M/mm3 (4.6-6.20); White Blood Count 4.8 K/mm3 (4.5-10.0)
[2022-10-26 06:30] LABS: Alanine Aminotransferase 14 U/L (6-50); Alkaline Phosphatase 157 U/L (38-126); Anion Gap 6 mmol/L (8-16); Aspartate Amino Transferase 22 U/L (17-59); Bilirubin,Total 0.4 mg/dL (0.2-1.3); Blood Urea Nitrogen 24 mg/dL (9-20); Calcium 8.4 mg/dL (8.4-10.2); Carbon Dioxide 19 mmol/L (22-30); Chloride 111 mmol/L (98-107); Estimated CRCL calculation 50 ml/min; Estimated Glomerular Filt Rate 54; Glucose 92 mg/dL (65-110); Magnesium 2.1 mg/dL (1.6-2.3); Potassium 4.4 mmol/L (3.4-5.0); Sodium 136 mmol/L (137-145)
[2022-10-26 08:00] VITALS: O2SAT 98
[2022-10-26 08:09] LABS: Glucose Point of Care 97 mg/dl (65-105)
[2022-10-26] MEDS: allopurinoL 300 MG TABLET PO (08:35)
[2022-10-26] MEDS: CYANOCOBALAMIN 500 MCG TABLET PO (08:35)
[2022-10-26] MEDS: MULTIVITAMINS THERAPEUTIC TAB (*BKC) 1 TABLET PO (08:36)
[2022-10-26] MEDS: FINASTERIDE 5 MG TABLET PO (08:36)
[2022-10-26] MEDS: FERROUS SULFATE 325 MG TABLET DR PO ×2 (08:36→21:06)
[2022-10-26] MEDS: EMPAGLIFLOZIN 10 MG TABLET PO (08:36)
[2022-10-26] MEDS: FLUTICASONE PROPIONATE 0.05% NA SPR 16 GM BTL (*BKC) 2 SPRAY NASAL (08:36)
[2022-10-26] MEDS: LINEZOLID 600 MG TABLET PO (08:36)
[2022-10-26 08:39] VITALS: PULSE 67
[2022-10-26] MEDS: dilTIAZem HCL CD 240 MG CAP.24HR PO (08:39)
[2022-10-26] MEDS: METOPROLOL SUCCINATE EXT REL 100 MG TABCR PO (08:39)
[2022-10-26] MEDS: TRIAMCINOLONE ACET 0.1% CREAM 15 GM TUBE 1 APPLIC TOPICAL ×3 (08:43→16:50)
[2022-10-26] MEDS: POTASSIUM CHLORIDE 20 MEQ ER TABLET PO ×2 (10:06→16:49)
[2022-10-26 12:00] LABS: Glucose Point of Care 127 mg/dl (65-105)
[2022-10-26 14:00] VITALS: BP 101/56; PULSE 64; RESP 16; TEMP 36.6; O2SAT 98
[2022-10-26] MEDS: AMOXICILLIN 500 MG CAPSULE PO ×2 (14:22→21:06)
--- NOTE | 2022-10-26 16:35 | PC.NURSE ---
09 Dr Banegas notified of potassium level 4.4 today and patient on potassium 20 meq po bid, or to give per MD.
[2022-10-26 16:56] LABS: Glucose Point of Care 107 mg/dl (65-105)
[2022-10-26] MEDS: SIMVASTATIN 10 MG TABLET PO (21:06)
[2022-10-26 21:56] LABS: Glucose Point of Care 114 mg/dl (65-105)
[2022-10-26 22:00] VITALS: BP 118/67; PULSE 71; RESP 16; TEMP 35.8; O2SAT 100
[2022-10-27] MEDS: AMOXICILLIN 500 MG CAPSULE PO (05:27)
[2022-10-27 05:47] VITALS: BP 111/53; PULSE 63; RESP 14; TEMP 35.8; O2SAT 100
[2022-10-27 06:19] LABS: Basophils Absolute Auto 0.1 K/mm3 (0.0-0.1); Basophils Percent Auto 1.1 % (0.2-1.2); Eosinophils Absolute Auto 0.4 K/mm3 (0-0.3); Eosinophils Percent Auto 9.1 % (0-4.4); Hematocrit 35.2 % (42.0-52.0); Hemoglobin 10.8 g/dL (14.0-18.0); Immature Granulocyte Absolute 0.03 K/mm3 (0.00-0.031); Immature Granulocyte Percent A 0.7 % (0-0.5); Lymphocytes Absolute Auto 1.94 K/mm3 (0.9-3.2); Mean Corpuscular HGB Conc 30.7 g/dl (32-36); Mean Corpuscular Hemoglobin 30.7 pg (26-34); Mean Platelet Volume 9.7 fl (7.4-10.4); Monocytes Absolute Auto 0.5 K/mm3 (0.1-0.6); Monocytes Percent Auto 11.3 % (2.6-8.5); Neutrophils Absolute Auto 1.6 K/mm3 (1.3-6.7); Neutrophils Percent Auto 34.8 % (45.5-73.1); Platelet Count Result 182 k/mm3 (150-375); Red Blood Count 3.52 M/mm3 (4.6-6.20); White Blood Count 4.5 K/mm3 (4.5-10.0)
[2022-10-27 06:43] LABS: Alanine Aminotransferase 16 U/L (6-50); Alkaline Phosphatase 157 U/L (38-126); Anion Gap 3 mmol/L (8-16); Aspartate Amino Transferase 27 U/L (17-59); Bilirubin,Total 0.4 mg/dL (0.2-1.3); Blood Urea Nitrogen 20 mg/dL (9-20); Calcium 8.5 mg/dL (8.4-10.2); Carbon Dioxide 22 mmol/L (22-30); Chloride 108 mmol/L (98-107); Estimated CRCL calculation 54 ml/min; Estimated Glomerular Filt Rate 60; Glucose 88 mg/dL (65-110); Magnesium 2.1 mg/dL (1.6-2.3); Potassium 4.6 mmol/L (3.4-5.0); Sodium 133 mmol/L (137-145)
[2022-10-27 06:51] LABS: Anisocytosis 1+ (NORMAL); Atypical Lymphocytes Present; Platelet Estimate Adequate (Adequate); Schistocytes None Seen (NORMAL)
[2022-10-27 08:07] LABS: Glucose Point of Care 87 mg/dl (65-105)
[2022-10-27] MEDS: TRIAMCINOLONE ACET 0.1% CREAM 15 GM TUBE 1 APPLIC TOPICAL (08:30)
[2022-10-27] MEDS: POTASSIUM CHLORIDE 20 MEQ ER TABLET PO (08:30)
[2022-10-27] MEDS: EMPAGLIFLOZIN 10 MG TABLET PO (08:30)
[2022-10-27] MEDS: FERROUS SULFATE 325 MG TABLET DR PO (08:30)
[2022-10-27] MEDS: dilTIAZem HCL CD 240 MG CAP.24HR PO (08:30)
[2022-10-27] MEDS: FLUTICASONE PROPIONATE 0.05% NA SPR 16 GM BTL (*BKC) 2 SPRAY NASAL (08:30)
[2022-10-27] MEDS: allopurinoL 300 MG TABLET PO (08:30)
[2022-10-27 08:31] VITALS: PULSE 64
[2022-10-27] MEDS: MULTIVITAMINS THERAPEUTIC TAB (*BKC) 1 TABLET PO (08:31)
[2022-10-27] MEDS: METOPROLOL SUCCINATE EXT REL 100 MG TABCR PO (08:31)
[2022-10-27] MEDS: FINASTERIDE 5 MG TABLET PO (08:31)
[2022-10-27] MEDS: CYANOCOBALAMIN 500 MCG TABLET PO (08:31)
--- NOTE | 2022-10-27 09:06 | PM.IMPN ---
Progress Note: A&P Assessment and Plan (1) Cellulitis of third toe of right foot: Code(s): L03.031 - Cellulitis of right toe Status: Acute (2) Open wound of right great toe: Code(s): S91.101A - Unspecified open wound of right great toe without damage to nail, initial encounter Status: Acute (3) Diabetic foot ulcer: Code(s): E11.621 - Type 2 diabetes mellitus with foot ulcer; L97.509 - Non-pressure chronic ulcer of other part of unspecified foot with unspecified severity Status: Acute (4) Type 2 diabetes mellitus: Code(s): E11.9 - Type 2 diabetes mellitus without complications Status: Acute (5) Atrial fibrillation: Qualifiers: Atrial fibrillation type: unspecified chronic Qualified Code(s): I48.20 - Chronic atrial fibrillation, unspecified Code(s): I48.91 - Unspecified atrial fibrillation Status: Chronic Plan A 71-year-old male with past medical history of diabetes and metastatic colon cancer presents to the ED with right 3rd toe wound acute on chronic with increased swelling redness and drainage. He has been followed by a wound care. No fever. Lactic acid was normal no leukocytosis. ESR 69 CRP 3.6. X-ray of to with erosions noted septic versus inflammatory arthropathy. Started on the nasal bleed due to vancomycin allergy along with cefepime and metronidazole. General surgery has been consulted Has underlying atrial fibrillation on metoprolol not on anticoagulation due to hematuria in the past. History of metastatic colon cancer on chemotherapy. Chronic kidney disease stage 3 type 2 diabetes mellitus on oral hypoglycemic agent. Used to be on insulin. A1c at 10.3. 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 Urine culture growing Enterococcus unclear significance there is no UA collected. Does not report any urinary symptoms. repeat UA is still looks infected. Started on Augmentin 10/24/2022. But with diarrhea will stop this and changes antibiotics to Unasyn. Discussed with ID pharmacist. Enterococcus growing in urine culture sensitive to ampicillin. Culture from toe is pending. General surgery reports continue local wound care with no signs or symptoms of infection follow-up wound care and suture removal in 10 days. on antibiotic to amoxicillin to cover Enterococcus in urine no further antibiotics needed for toe infection. anticipate dc today with arrangement of home health Subjective Date/time seen: 10/27/22 09:06 Interval history: I saw exam patient today, patient has no new issue or events over the night patient is able to walk with walker. Home health arranged. Exam Narrative: General: Nontoxic-appearing male sitting up in bed in no acute distress. HEENT: PERRL, EOMI. Sclera anicteric. Oral mucosa moist. Neck: Supple. Nontender Respiratory: Lungs are clear to auscultation bilaterally. Cardiovascular: Irregularly irregular rate and rhythm. Gastrointestinal: Abdomen is soft, nontender, and nondistended with positive bowel sounds. Skin: Warm and dry. Right foot done dressing which is clean dry and intact Neurological: Alert. Cranial nerves 2-12 are grossly intact. No gross focal deficits to casual conversation. Psychiatric: Pleasant and cooperative with normal mood and affect. Objective Data Vital Signs Vital Signs: Vital Signs - 24 hr 10/26/22 14:00 10/26/22 22:00 10/27/22 05:47 Temperature 98 F 96.4 F L 96.4 F L Pulse Rate 64 71 63 Respiratory Rate 16 16 14 Blood Pressure 101/56 L 118/67 111/53 L Pulse Oximetry 98 100 100 10/27/22 08:31 Temperature Pulse Rate 64 Respiratory Rate Blood Pressure Pulse Oximetry Intake/Output Intake/Output: Intake & Output 10/24/22 10/25/22 10/26/22 10/27/22 23:59 23:59 23:59 23:59 Intake Total 6688 675 4907 600 Output Total 636 350 400 Balance 3451 848 6695 200 Meds/Results Medications: Active Medications Generi
--- NOTE | 2022-10-27 11:28 | PCNWS ---
Weekly nutritional screen. Patient is tolerating current diabetic diet with adequate intake at 100% of meals. No weight loss reported. No nutritional needs at this time.
[2022-10-27 11:29] LABS: Glucose Point of Care 126 mg/dl (65-105)
--- NOTE | 2022-10-27 12:39 | PM.DS ---
DS: Admitting Diagnosis Discharge Date 10/27 Admitting Diagnosis (1) Cellulitis of third toe of right foot: ?Code(s): L03.031 - Cellulitis of right toe ?Status:?Acute (2) Open wound of right great toe: ?Code(s): S91.101A - Unspecified open wound of right great toe without damage to nail, initial encounter ?Status:?Acute (3) Diabetic foot ulcer: ?Code(s): E11.621 - Type 2 diabetes mellitus with foot ulcer; L97.509 - Non-pressure chronic ulcer of other part of unspecified foot with unspecified severity ?Status:?Acute (4) Type 2 diabetes mellitus: ?Code(s): E11.9 - Type 2 diabetes mellitus without complications ?Status:?Acute (5) Atrial fibrillation: ?Qualifiers: ?Atrial fibrillation type:?unspecified chronic? Qualified Code(s):?I48.20 - Chronic atrial fibrillation, unspecified ?Code(s): I48.91 - Unspecified atrial fibrillation ?Status:?Chronic DS: Discharge Diagnosis Discharge Diagnosis (1) Cellulitis of third toe of right foot: Code(s): L03.031 - Cellulitis of right toe Status: Acute (2) Open wound of right great toe: Code(s): S91.101A - Unspecified open wound of right great toe without damage to nail, initial encounter Status: Acute (3) Diabetic foot ulcer: Code(s): E11.621 - Type 2 diabetes mellitus with foot ulcer; L97.509 - Non-pressure chronic ulcer of other part of unspecified foot with unspecified severity Status: Acute (4) Type 2 diabetes mellitus: Code(s): E11.9 - Type 2 diabetes mellitus without complications Status: Acute (5) Atrial fibrillation: Qualifiers: Atrial fibrillation type: unspecified chronic Qualified Code(s): I48.20 - Chronic atrial fibrillation, unspecified Code(s): I48.91 - Unspecified atrial fibrillation Status: Chronic DS: Summary Hospital Course Reason for hospitalization: ?right 3rd toe wound acute on chronic with increased swelling redness and drainage. Hospital Course: A 71-year-old male with past medical history of diabetes and metastatic colon cancer presents to the ED with right 3rd toe wound acute on chronic with increased swelling redness and drainage. He has been followed by a wound care. No fever. Lactic acid was normal no leukocytosis. ESR 69 CRP 3.6. X-ray of to with erosions noted septic versus inflammatory arthropathy. Started on the nasal bleed due to vancomycin allergy along with cefepime and metronidazole. General surgery has been consulted Has underlying atrial fibrillation on metoprolol not on anticoagulation due to hematuria in the past. History of metastatic colon cancer on chemotherapy. Chronic kidney disease stage 3 type 2 diabetes mellitus on oral hypoglycemic agent. Used to be on insulin. A1c at 10.3. 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 Urine culture growing Enterococcus unclear significance there is no UA collected. Does not report any urinary symptoms. repeat UA is still looks infected. Started on Augmentin 10/24/2022. But with diarrhea will stop this and changes antibiotics to Unasyn. Discussed with ID pharmacist. Enterococcus growing in urine culture sensitive to ampicillin. Culture from toe is pending. General surgery reports continue local wound care with no signs or symptoms of infection follow-up wound care and suture removal in 10 days. on antibiotic to amoxicillin to cover Enterococcus in urine no further antibiotics needed for toe infection. anticipate dc today with arrangement of home health Time Spent with Patient Time attestation: Total time spent providing and/or coordinating discharge services: Exam Narrative: General: Nontoxic-appearing male sitting up in bed in no acute distress. HEENT: PERRL, EOMI. Sclera anicteric. Oral mucosa moist. Neck: Supple. Nontender Respiratory: Lungs are clear to auscultation bilaterally. Cardiovascular: Irregularly irregular
== END 2022-10-27 13:55 | disposition home health service (06) | DRG 504 ==
LOC: ANHED 14:04 → ANH3MEDSUR 16:14
PROVIDERS: Internal Medicine; Physician Assistant; Surgery; Admitting Provider Family Medicine; Emergency Provider Physician Assistant; PCP Family Medicine; Visit Provider Hospitalist
PROC: 0Y6T0Z0 Detachment at Right 3rd Toe, Complete, Open Approach (ICD-10-PCS; principal; 2022-10-22 10:30)
DX: M86.171 Other acute osteomyelitis, right ankle and foot (principal); C18.9 Malignant neoplasm of colon, unspecified; I13.0 Hypertensive heart and chronic kidney disease with heart failure and stage 1 through stage 4 chronic kidney disease, or unspecified chronic kidney disease; I48.20 Chronic atrial fibrillation, unspecified; C79.9 Secondary malignant neoplasm of unspecified site; B95.2 Enterococcus as the cause of diseases classified elsewhere; D63.1 Anemia in chronic kidney disease; L97.519 Non-pressure chronic ulcer of other part of right foot with unspecified severity; E11.628 Type 2 diabetes mellitus with other skin complications; E11.621 Type 2 diabetes mellitus with foot ulcer; E11.69 Type 2 diabetes mellitus with other specified complication; E11.42 Type 2 diabetes mellitus with diabetic polyneuropathy; E11.51 Type 2 diabetes mellitus with diabetic peripheral angiopathy without gangrene; E78.2 Mixed hyperlipidemia; E11.22 Type 2 diabetes mellitus with diabetic chronic kidney disease; I50.9 Heart failure, unspecified; M10.9 Gout, unspecified; N18.30 Chronic kidney disease, stage 3 unspecified; Z89.422 Acquired absence of other left toe(s); Z90.49 Acquired absence of other specified parts of digestive tract; Z92.21 Personal history of antineoplastic chemotherapy; Z79.84 Long term (current) use of oral hypoglycemic drugs
CPT/HCPCS: 36415; 71260; 73660; 74177; 80048; 80053; 81001; 82948; 83036; 83605; 83735; 85025; 85027; 85652; 86140; 87040; 88305; 88311; 97110; 97116; 97161; 97165; 97530; 97535; 99213; 99285; A9270; G0463; J0295; J0692; J1836; J2371; J2405; J2704; J3010; J7120; Q9967

== ENCOUNTER 2022-11-08 09:49 | Inpatient (IN) | payer MEDICARE, MEDICAID, SELFPAY ==
[2022-11-08] VITALS (20 sets, daily range): BP systolic 84–116; BP diastolic 55–69; PULSE 89–143; RESP 16–26; TEMP 35.7–37.6; O2SAT 94–100; BMI 28.2
--- NOTE | ~2022-11-08 | XR_ITS ---
Portable chest x-ray Comparison: 05/13/2022 Clinical History: Altered mental status Findings: Left-sided Mediport is unchanged. Stable 1.8 cm left lower lobe nodular opacity. Cardiome diastinal silhouette is stable. Bones and soft tissues are unremarkable. Impression: Stable 1.8 cm left lower lobe pulmonary nodular opacity, consistent with history of metastatic diseas e. Left-sided Mediport. Reviewed, dictated and finalized at location . Impression: Stable 1.8 cm left lower lobe pulmonary nodular opacity, consistent with histor y of metastatic disease. Left-sided Mediport.
--- NOTE | ~2022-11-08 | US_ITS ---
EXAMINATION: US renal BI DATE: 11/12/2022 09:42 INDICATION: Acute renal insufficiency TECHNIQUE: Multiple ultrasound grayscale images of the kidneys were obtained. COMPARISON: 05/11/2022 FINDINGS: The right kidney measures 12.0 x 6.4 x 6.5 cm. The left kidney measures 10.7 x 5.6 x 5.3 cm. The kidn eys demonstrate normal echogenicity. Simple appearing bilateral anechoic renal cysts, the largest on the right measuring 5.9 cm and the largest on the left measuring 4.9 cm. There is moderate bilateral hydroureteronephrosis. No stones identified. The bladder is normal with bilateral ureteral jets visua lized on color Doppler.. IMPRESSION: 1. Moderate bilateral hydroureteronephrosis and bilateral renal cysts. Reviewed, dictated and finalized at location A.
--- NOTE | ~2022-11-08 | CT_ITS ---
CT head without contrast Indication: Altered mental status Technique: Serial scans were obtained through the brain without the administration of contrast. Dose reduction technique was used on this scan by utilizing automated exposure control and iterative recon struction technique. The dose-length product (DLP) was 681.00 mGy-cm. Findings: There is no evidence of intracranial hemorrhage, mass lesion, or acute infarct. The ventri cles and subarachnoid spaces are dilated, consistent with mild atrophy. Low attenuation regions are seen within the periventricular white matter bilaterally, likely representing changes from chronic mi crovascular ischemic disease. There is no evidence of edema, mass effect or midline shift. The visu alized paranasal sinuses and mastoid air cells are clear. Impression: No intracranial hemorrhage, mass, or acute infarct. Atrophy and chronic white matter changes, as above. Reviewed, dictated and finalized at location . Impression: No intracranial hemorrhage, mass, or acute infarct. Atrophy and chronic white matter changes, as above.
--- NOTE | ~2022-11-08 | CT_ITS ---
EXAMINATION: CT abdomen pelvis wo con DATE: 11/08/2022 15:28 INDICATION: Sepsis. Urinary tract infection. Renal failure. TECHNIQUE: Computed tomography (CT) of the abdomen and pelvis was performed without intravenous contr ast. Automated exposure control and iterative reconstruction technique were employed. The dose-length product was 1194.48 mGy-cm. COMPARISON: None FINDINGS: 2 cm mass at the basilar left lower lobe. 7 mm right middle lobe nodule. There is smooth septal line thickening in the dependent lower lungs consistent with mild pulmonary edema. Cardiomegaly with biatr ial enlargement. Atherosclerotic coronary artery calcification. Aortic valve calcification. No perica rdial or pleural effusion. A few splenic and numerous hepatic calcific lesions consistent with old gr anulomatous disease. Nodular cirrhotic liver. Subtle approximately 7 x 6 cm heterogeneously hypodense mass with poorly defined margins in segment 4A and 4B of the liver which is suspicious for primary h epatocellular carcinoma. 2.5 cm more well-defined fluid attenuation lesion in the spleen which withou t significant interval change since 07/22/2021 favoring a benign cyst. Multiple calcified gallstones i n the dependent aspect of the normal-appearing gallbladder. Pancreas and bilateral adrenal glands are normal. Prominent bilateral renal cysts measuring up to 6.3 cm the right kidney and 5.5 cm in the mi d left kidney. No significant change in moderate bilateral hydroureteronephrosis which extends to the bladder. There appears to be subtly increased density to the fluid-filled the dependent aspect of th e bilateral renal collecting systems and bladder and some urothelial thickening at the left renal col lecting system with haziness to the left renal sinus fat, all findings raising concern for ascending urinary tract infection. There is fluid in the colon consistent with nonspecific diarrhea. No bowel o bstruction. There is a rectosigmoid anastomotic suture line. Moderate-sized left and small right fat- containing inguinal hernias. No free intraperitoneal gas or fluid. No pathologically enlarged abdomin al or pelvic lymphadenopathy. Severe lumbar spondylosis. IMPRESSION: 1. Persistent moderate bilateral hydroureteronephrosis extending to the bladder consistent with bladd er outlet obstruction. There is subtle increased density to the dependent excreted urine in the colle cting systems and bladder and urothelial thickening and surrounding stranding at the left renal pelvi s which is suspicious for cystitis and ascending urinary tract infection 2. Hepatic mass and nodules in the right middle and left lower lobes which have increased since 2021 consistent with progression of metastatic disease with known prior history of colon cancer. Ther e is however cirrhosis and the differential for the hepatic mass would also include primary hepatocel lular carcinoma. 3. Cholelithiasis. Reviewed, dictated and finalized at location A. IMPRESSION: 1. Persistent moderate bilateral hydroureteronephrosis extending to the bladder consistent with bladder outlet obstruction. There is subtle increased density to the dependent excreted urine in the collecting systems and bladder and uroth elial thickening and surrounding stranding at the left renal pelvis which is romo spicious for cystitis and ascending urinary tract infection 2. Hepatic mass and nodules in the right middle and left lower lobes which have increased since 07/22/2021 consistent with progression of metastatic disease wi th known prior history of colon cancer. There is however cirrhosis and the diff erential for the hepatic mass would also include primary hepatocellular carcino ma. 3. Cholelithiasis.
--- NOTE | ~2022-11-08 | US_ITS ---
Renal-Bladder ultrasound Clinical History: Hydronephrosis Technique: Real-time sonographic imaging of the kidneys and urinary bladder was performed. Findings: The right kidney measures 13.5 cm in length and the left kidney measures 14.8 cm. There is no hydronephrosis or renal calculus identified. Renal cortical echogenicity is within normal limits. Multiple bilateral renal cysts are present. The urinary bladder is collapsed around a Chua catheter. Impression: No hydronephrosis. Multiple bilateral renal cysts. Reviewed, dictated and finalized at location . Impression: No hydronephrosis. Multiple bilateral renal cysts.
--- NOTE | 2022-11-08 09:54 | ECG_ITS ---
Measurements Intervals [place] Rate: 110 P: TN: 0 QRS: -55 QRSD: 117 T: 66 QT: 352 QTc: 478 Interpretive Statements ATRIAL FIBRILLATION WITH RAPID VENTRICULAR RESPONSE LEFT ANTERIOR FASCICULAR BLOCK [QRS AXIS <= -45, QR IN I, RS IN II] MINIMAL ST DEPRESSION [0.025+ mV ST DEPRESSION] ABNORMAL ECG COMPARED TO ECG 04/27/2022 15:01:18 ST (T WAVE) DEVIATION NOW PRESENT Electronically Signed On 11-08-2022 12:04:05 CDT by Joel Sher M.D.
--- NOTE | 2022-11-08 10:13 | ED.AMS ---
HPI - Altered Mental Status General Chief Complaint: Altered Mental Status Stated Complaint: altered mental status Time Seen by Provider: 11/08/22 10:06 History of Present Illness HPI narrative: Pt presents with altered mental status per his respiratory care practitioner. She states he is normally very talkative but she has noticed he seemed confused with maybe some slurred speech starting last week. Pt has history of UTI's. Pt has no specific complaints. Related Data Home Medications Medication Instructions Recorded Confirmed fluticasone propionate 50 2 spray intranasal DAILY 02/05/19 11/08/22 mcg/actuation nasal spray,suspension (Allergy Relief (fluticasone)) cyanocobalamin (vitamin B-12) 500 mcg PO DAILY 12/10/19 11/08/22 1,000 mcg tablet (Vitamin B-12) ferrous sulfate 325 mg (65 mg 325 mg PO Q12H 12/10/19 11/08/22 iron) tablet diltiazem HCl 240 mg capsule,24 240 mg PO DAILY 06/03/20 11/08/22 hr,extended release multivitamin 1 tablet PO DAILY 10/08/20 11/08/22 simvastatin 10 mg tablet 10 mg PO DAILY 03/06/22 11/08/22 loratadine 10 mg tablet (Claritin) 10 mg PO DAILY PRN Allergies 10/20/22 11/08/22 potassium chloride 20 mEq 20 meq PO BID 10/20/22 11/08/22 tablet,extended release(part/cryst) (Klor-Con M) Allergies Allergy/AdvReac Type Severity Reaction Status Date / Time vancomycin Allergy Rash Verified 11/08/22 09:56 Review of Systems Review of Systems: All systems reviewed & are unremarkable except as noted in HPI and below PMFSH Past Medical History Medical History 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 Atrial fibrillation Chronic anemia Colon cancer Receiving chemotherapy treatment. Congestive heart failure Echocardiogram in January 2020 showed mildly enlarged left ventricle with mild reduction left ventricular function with an EF of 45 to 50% as well as significant biatrial dilatation and small amounts of atrial, mitral, and tricuspid regurgitation. 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 Mixed hyperlipidemia Neuropathy Osteomyelitis Status post amputation of left 2nd toe. Peripheral vascular disease Thrombocytopenia Toe osteomyelitis, left Type 2 diabetes mellitus Surgical History Surgical History History of amputation of lesser toe of left foot Treatment of osteomyelitis in 10/2013 & 01/2015. History of foot surgery 10/2022, right toe History of partial colectomy (~07/2017) Hand assisted laparoscopic low anterior resection with colorectal anastomosis for treatment of colon cancer. History of removal of pigmented skin lesion History of skin graft To poorly healing wound of the lower extremity. Port-A-Cath in place Family History Family History Mother Diabetes mellitus Father Cerebrovascular accident Other Family history of arthritis Family history of cardiovascular disease Family history of heart disease in male family member before age 55 Family history of thyroid disease Social History Social History Social History: The patient lives alone in his own apartment in [place]. He is single and never had children. 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 Lifelong nonsmoker. No alcohol or illicit substance use. Very active in his sikh. He is not certain who he would want to be his surrogate decision maker at this time and wishes to think about it. Full code. Caffeine- Smoking status: Never smoker Second hand tobacco smoke exposure: No Alcohol intake: never
[2022-11-08 11:04] LABS: Basophils Absolute Auto 0.1 K/mm3 (0.0-0.1); Basophils Percent Auto 0.6 % (0.2-1.2); Eosinophils Absolute Auto 0.1 K/mm3 (0-0.3); Eosinophils Percent Auto 0.4 % (0-4.4); Hematocrit 35.2 % (42.0-52.0); Hemoglobin 11.4 g/dL (14.0-18.0); Immature Granulocyte Absolute 0.31 K/mm3 (0.00-0.031); Immature Granulocyte Percent A 1.7 % (0-0.5); Lymphocytes Absolute Auto 1.56 K/mm3 (0.9-3.2); Lymphocytes Percent Auto 8.7 % (18.3-44.2); Mean Corpuscular HGB Conc 32.4 g/dl (32-36); Mean Corpuscular Hemoglobin 30.7 pg (26-34); Mean Corpuscular Volume 94.9 fl (80-100); Mean Platelet Volume 10.9 fl (7.4-10.4); Monocytes Percent Auto 11.4 % (2.6-8.5); Neutrophils Absolute Auto 13.8 K/mm3 (1.3-6.7); Neutrophils Percent Auto 77.2 % (45.5-73.1); Platelet Count Result 274 k/mm3 (150-375); Red Blood Count 3.71 M/mm3 (4.6-6.20); Red Cell Distribution Width 19.1 % (11.5-14.5); White Blood Count 17.9 K/mm3 (4.5-10.0)
[2022-11-08 11:14] LABS: INR 1.2; Prothrombin Time 16.1 Seconds (11.1-14.7)
[2022-11-08 11:15] LABS: Partial Thromboplastin Time 43.8 SECONDS (22.3-36.8)
[2022-11-08 11:16] LABS: Alanine Aminotransferase 46 U/L (6-50); Albumin Level 3.2 g/dL (3.5-5.1); Alkaline Phosphatase 458 U/L (38-126); Anion Gap 12 mmol/L (8-16); Aspartate Amino Transferase 66 U/L (17-59); Bilirubin,Total 1.2 mg/dL (0.2-1.3); Blood Urea Nitrogen 65 mg/dL (9-20); Calcium 8.7 mg/dL (8.4-10.2); Carbon Dioxide 18 mmol/L (22-30); Chloride 105 mmol/L (98-107); Estimated CRCL calculation 26 ml/min; Estimated Glomerular Filt Rate 24; Glucose 149 mg/dL (65-110); Potassium 4.4 mmol/L (3.4-5.0); Sodium 135 mmol/L (137-145)
[2022-11-08 11:23] LABS: Atypical Lymphocytes Present; Platelet Estimate Adequate (Adequate)
[2022-11-08 11:24] LABS: Hypochromasia 1+ (NORMAL); Schistocytes None Seen (NORMAL)
[2022-11-08] MEDS: SODIUM CHLORIDE 0.9% IV 1,000 ML 999 ML IV CONT (11:34)
[2022-11-08 11:39] LABS: Appearance Urine Turbid (Clear); Bacteria Urine 4+ /hpf; Bilirubin Urine Negative (Negative); Blood Urine 3+ (Negative); Color Urine Dark Yellow (Yellow); Glucose Urine UA Trace mg/dL (Negative); Ketones Urine Trace mg/dL (Negative); Leukocyte Esterase Ur 3+ LEU/UL (Negative); Need Manual Microscopic Reviewed; Nitrate Urine Negative (Negative); Non Pathogenic Casts 0-2; Protein Urine 3+ mg/dL (Negative); Specific Grav Ur 1.011 (1.001-1.035); Squamous Epithelial Cell Urine Many /hpf (Few); WBC Urine >100 /hpf; pH Urine 5.5 (5.0-9.0)
[2022-11-08 11:41] LABS: Add Urine Microscopic? YES
[2022-11-08 12:01] LABS: Lactic Acid Reflex 1.6 mmol/L (0.7-2.0)
--- NOTE | 2022-11-08 13:09 | PM.IMHP ---
H&P: HPI History of Present Illness Date/Time: 11/08/22 13:09 Chief Complaint: Confusion and not acting right Narrative: This is a 71-year-old male patient who was brought in by a friend who stated that patient was not acting right and seemed confused for about the last week and worsening each day. His friend states that patient is usually very talkative but he has been less so recently and has been slurring his speech since last week. Wiring Technician/friend is not available at time of my assessment. Patient has a past medical history that is known of atrial fibrillation, CHF, chronic anemia, hypertension, neuropathy, diabetes and learning disability. 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 Atrial fibrillation Chronic anemia Colon cancer Receiving chemotherapy treatment. Congestive heart failure Echocardiogram in January 2020 showed mildly enlarged left ventricle with mild reduction left ventricular function with an EF of 45 to 50% as well as significant biatrial dilatation and small amounts of atrial, mitral, and tricuspid regurgitation. 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 Mixed hyperlipidemia Neuropathy Osteomyelitis Status post amputation of left 2nd toe. Peripheral vascular disease Thrombocytopenia Toe osteomyelitis, left Type 2 diabetes mellitus Surgical History Surgical History History of amputation of lesser toe of left foot Treatment of osteomyelitis in 10/2013 & 01/2015. History of foot surgery 10/2022, right toe History of partial colectomy (~07/2017) Hand assisted laparoscopic low anterior resection with colorectal anastomosis for treatment of colon cancer. History of removal of pigmented skin lesion History of skin graft To poorly healing wound of the lower extremity. Port-A-Cath in place Family History Family History Mother Diabetes mellitus Father Cerebrovascular accident Other Family history of arthritis Family history of cardiovascular disease Family history of heart disease in male family member before age 55 Family history of thyroid disease Social History Social History Social History: The patient lives alone in his own apartment in [place]. He is single and never had children. 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 Lifelong nonsmoker. No alcohol or illicit substance use. Very active in his orthodoxy. He is not certain who he would want to be his surrogate decision maker at this time and wishes to think about it. Full code. Caffeine- Smoking status: Never smoker Second hand tobacco smoke exposure: No Alcohol intake: never Substance use: never Substance use type: does not use Lack of Transportation: No Lack of Food: Never True Current Housing: I Have Housing Concerned About Future Housing: No Difficulty Paying Gas/Electric Bills: No Difficulty Paying for Meds: No Currently Unemployed: No Education: High School Diploma/GED Difficulty w/ Childcare or Family Care: No Living arrangements: alone Occupation/Education: unemployed Spiritual care concerns: No Meds Home Medications and Allergies Home Medications Medication Instructions Recorded Confirmed Type fluticasone propionate 50 2 spray intranasal DAILY 02/05/19 11/08/22 History mcg/actuation nasal spray,suspension (Allergy Relief (
--- NOTE | 2022-11-08 14:31 | ADMGEN ---
This patient, Donaldo Booker, was admitted to IMU Room 209-. Patient/family oriented to hospital policies and general routines including ID bracelet, bed and alarms, visiting hours, pain management, procedures, bathroom and other care routines, personal items, smoking policy, room service/diet, and visiting hours. Information on how to activate the Rapid Response Team has been discussed. Patient/Family are encouraged to report perceived risks to care and to ask questions if they do not understand what they are told or what they should do.
[2022-11-08] MEDS: METOPROLOL SUCCINATE EXT REL 100 MG TABCR PO (16:00)
[2022-11-08] MEDS: POTASSIUM CHLORIDE 20 MEQ ER TABLET PO (16:01)
[2022-11-08] MEDS: SODIUM CHLORIDE 0.9% IV 1,000 ML 100 ML IV CONT (16:01)
[2022-11-08] MEDS: CYANOCOBALAMIN 500 MCG TABLET PO (16:01)
[2022-11-08] MEDS: ENOXAPARIN 30 MG/0.3 ML SYRINGE SUB-Q (16:01)
[2022-11-08] MEDS: TRIAMCINOLONE ACET 0.1% CREAM 15 GM TUBE 1 APPLIC TOPICAL (17:54)
[2022-11-08 18:30] LABS: Hemoglobin A1C 5.3 % (<5.7)
[2022-11-08 20:01] LABS: Glucose Point of Care 103 mg/dl (65-105)
[2022-11-08 20:24] LABS: Glucose Point of Care 124 mg/dl (65-105)
[2022-11-08] MEDS: dilTIAZem 100 MG/100 ML 100 MG/100 ML BAG 10 MG IV CONT (21:09)
[2022-11-08] MEDS: FERROUS SULFATE 325 MG TABLET DR BY MOUTH (21:10)
[2022-11-08 22:48] LABS: Alanine Aminotransferase 32 U/L (6-50); Albumin Level 2.5 g/dL (3.5-5.1); Alkaline Phosphatase 356 U/L (38-126); Anion Gap 9 mmol/L (8-16); Aspartate Amino Transferase 40 U/L (17-59); Bilirubin,Total 0.7 mg/dL (0.2-1.3); Blood Urea Nitrogen 47 mg/dL (9-20); Calcium 6.6 mg/dL (8.4-10.2); Carbon Dioxide 14 mmol/L (22-30); Chloride 114 mmol/L (98-107); Estimated CRCL calculation 37 ml/min; Estimated Glomerular Filt Rate 37; Glucose 111 mg/dL (65-110); Potassium 3.6 mmol/L (3.4-5.0); Sodium 137 mmol/L (137-145)
[2022-11-08] MEDS: ACETAMINOPHEN 500 MG TABLET 1000 MG PO (23:18)
[2022-11-09] VITALS (16 sets, daily range): BP systolic 86–103; BP diastolic 51–67; PULSE 78–122; RESP 18–24; TEMP 36.1–37.1; O2SAT 94–98
[2022-11-09 00:16] LABS: Glucose Point of Care 130 mg/dl (65-105)
[2022-11-09] MEDS: SODIUM CHLORIDE 0.9% IV 1,000 ML 150 ML IV CONT ×2 (00:55→09:27)
[2022-11-09] MEDS: dilTIAZem 100 MG/100 ML 100 MG/100 ML BAG 15 MG IV CONT (04:19)
[2022-11-09 05:08] LABS: Basophils Absolute Auto 0.1 K/mm3 (0.0-0.1); Basophils Percent Auto 0.6 % (0.2-1.2); Eosinophils Absolute Auto 0.1 K/mm3 (0-0.3); Eosinophils Percent Auto 0.9 % (0-4.4); Hematocrit 29.9 % (42.0-52.0); Hemoglobin 9.7 g/dL (14.0-18.0); Immature Granulocyte Absolute 0.37 K/mm3 (0.00-0.031); Immature Granulocyte Percent A 2.3 % (0-0.5); Lymphocytes Percent Auto 11.2 % (18.3-44.2); Mean Corpuscular HGB Conc 32.4 g/dl (32-36); Mean Corpuscular Hemoglobin 31.2 pg (26-34); Mean Corpuscular Volume 96.1 fl (80-100); Mean Platelet Volume 10.3 fl (7.4-10.4); Monocytes Absolute Auto 1.3 K/mm3 (0.1-0.6); Monocytes Percent Auto 8.1 % (2.6-8.5); Neutrophils Absolute Auto 12.3 K/mm3 (1.3-6.7); Neutrophils Percent Auto 76.9 % (45.5-73.1); Platelet Count Result 217 k/mm3 (150-375); Red Blood Count 3.11 M/mm3 (4.6-6.20); Red Cell Distribution Width 19.1 % (11.5-14.5)
[2022-11-09 05:18] LABS: Alanine Aminotransferase 30 U/L (6-50); Albumin Level 2.2 g/dL (3.5-5.1); Alkaline Phosphatase 335 U/L (38-126); Anion Gap 9 mmol/L (8-16); Aspartate Amino Transferase 41 U/L (17-59); Bilirubin,Total 0.6 mg/dL (0.2-1.3); Blood Urea Nitrogen 48 mg/dL (9-20); Calcium 6.9 mg/dL (8.4-10.2); Carbon Dioxide 13 mmol/L (22-30); Chloride 115 mmol/L (98-107); Estimated CRCL calculation 37 ml/min; Estimated Glomerular Filt Rate 37; Glucose 106 mg/dL (65-110); Potassium 3.6 mmol/L (3.4-5.0); Sodium 137 mmol/L (137-145)
[2022-11-09 05:48] LABS: Anisocytosis 2+ (NORMAL); Atypical Lymphocytes Present; Platelet Estimate Adequate (Adequate); Schistocytes None Seen (NORMAL)
[2022-11-09 07:57] LABS: Glucose Point of Care 121 mg/dl (65-105)
[2022-11-09] MEDS: FERROUS SULFATE 325 MG TABLET DR BY MOUTH ×2 (09:28→21:55)
[2022-11-09] MEDS: cefTRIAXone 2 GM/NS 100 ML 2 GM/100 ML BAG IVPB (09:29)
[2022-11-09] MEDS: POTASSIUM CHLORIDE 20 MEQ ER TABLET PO ×2 (09:29→17:43)
[2022-11-09] MEDS: CYANOCOBALAMIN 500 MCG TABLET PO (09:30)
[2022-11-09] MEDS: MULTIVITAMINS THERAPEUTIC TAB (*BKC) 1 TABLET PO (09:30)
[2022-11-09] MEDS: SIMVASTATIN 10 MG TABLET PO (09:30)
[2022-11-09] MEDS: ENOXAPARIN 30 MG/0.3 ML SYRINGE SUB-Q (09:31)
[2022-11-09] MEDS: FLUTICASONE PROPIONATE 0.05% NA SPR 16 GM BTL (*BKC) 2 SPRAY NASAL (09:31)
[2022-11-09] MEDS: FINASTERIDE 5 MG TABLET PO (09:31)
[2022-11-09] MEDS: TRIAMCINOLONE ACET 0.1% CREAM 15 GM TUBE 1 APPLIC TOPICAL ×3 (09:32→17:43)
--- NOTE | 2022-11-09 09:36 | PM.IMPN ---
Progress Note: A&P Assessment and Plan (1) Septic shock: Code(s): A41.9 - Sepsis, unspecified organism; R65.21 - Severe sepsis with septic shock Status: Acute Assessment and Plan: Patient meets for SIRS criteria and had decreased blood pressure and acute renal failure with creatinine 2.6. WBC 17.5K Sources probably UTI. Patient received 30 milliliters/kilogram bolus of IV fluids in the emergency department. Clinically improved but BP still soft. Also with persistent metabolic acidosis despite normal lactic. BCx and UCx pending. WBC better. No fevers. Broaden abx until cultures returned. He has a hx of Enterococcus and ESBL EColi UTI Adjust medications to improve BP (2) Acute kidney injury: Code(s): N17.9 - Acute kidney failure, unspecified Status: Acute Assessment and Plan: Baseline Cr around 1.2. BUN of 65 and creatinine 2.6 on admission. Fluid bolus on admission Continues on IV fluids. Cr better at 1.8 but persistent metabolic acidosis felt realted to the AGUILAR Change to IVF with bicarb (3) Atrial fibrillation with rapid ventricular response: Code(s): I48.91 - Unspecified atrial fibrillation Status: Acute Assessment and Plan: Patient noted to be atrial fibrillation with rapid ventricular response upon admission. He is known to have chronic atrial fibrillation but no anticoagulation in the past due to hematuria (per notes in the chart). Decreased Diltiazem drip. If stable, will change to oral diltiazem. (4) Acute UTI: Code(s): N39.0 - Urinary tract infection, site not specified Status: Acute Assessment and Plan: UA noted. Abx started UCx pending. Suspect the source of his sepsis (5) Type 2 diabetes mellitus: Qualifiers: Diabetes mellitus complication status: without complication Diabetes mellitus fpc insulin use: without buttermaker continuous churn use Qualified Code(s): E11.9 - Type 2 diabetes mellitus without complications Code(s): E11.9 - Type 2 diabetes mellitus without complications Status: Acute Assessment and Plan: A1c 5.3. The patient's blood glucose was reviewed on 11/09 Glucose remains well controlled. Continue AccuCheks covering with sliding scale. Hypoglycemia protocol available as needed. Continue to monitor (6) Congestive heart failure: Qualifiers: Heart failure chronicity: chronic Heart failure type: diastolic Qualified Code(s): I50.32 - Chronic diastolic (congestive) heart failure Code(s): I50.9 - Heart failure, unspecified Status: Chronic Assessment and Plan: Echo Jan 2022 with EF 45-50% and indeterminate diastolic function. Stable. Not on O2. Clinically euvolemic. Continue to monitor Plan Hypocalcemia - pseudo related to low albumin (corrected to 8.7). follow DVT Prophylaxis - Lovenox Code status - Full Subjective Date/time seen: 11/09/22 09:36 Interval history: 71yo male with AFib, CHF chronic anemia hypertension diabetes mellitus and learning disability here for confusion. Patient is alert and oriented today. He is eating well. Bedside urinal shows cloudy urine. Patient states it has been like this for the past 2 days. He denies dysuria. He denies any chest pain or shortness of breath. No nausea or vomiting. Exam Narrative: AF 97.8 89/56 85 18 96% ra Gen - NARD sitting up in bed HEENT -alopecia to talus. Chest -right base crackles otherwise clear. Normal respiratory rate. Port in left upper chest. CV -irregularly irregular. Rate controlled. Telemetry showing AFib with controlled rate. Abd - Soft, NT/ND, Positive BS Ext -trace pedal edema. 2+ DP pulses bilaterally. Left 2nd toe and right 3rd toe amputation. Neuro - Alert and oriented x4. Psych - Nml mood and affect Skin -right 3rd amputation bed with whitish exudate. No surrounding erythema. Objective Data Vital Signs Vital Signs: Vital Signs - 24 hr 08/
[2022-11-09] MEDS: LINEZOLID 600 MG/300 ML 600 MG/300 ML SOLN 300 MG IVPB ×2 (11:34→21:54)
[2022-11-09] MEDS: dilTIAZem 100 MG/100 ML 100 MG/100 ML BAG 10 MG IV CONT (11:50)
[2022-11-09] MEDS: SODIUM BICARBONATE 8.4% 100 MEQ in WATER, STERILE FOR INJECTION 1,000 ML 50 MEQ IV CONT (12:02)
[2022-11-09] MEDS: ERTAPENEM 1 GM/NS 50 ML 1 GM/50 ML BAG IVPB (12:02)
[2022-11-09 12:22] LABS: Glucose Point of Care 170 mg/dl (65-105)
[2022-11-09] MEDS: CENTRAL LINE FLUSH 10 ML IV PUSH ×2 (13:30→21:55)
[2022-11-09] MEDS: dilTIAZem HCL 60 MG TABLET PO ×2 (17:43→23:28)
[2022-11-09 18:10] LABS: Glucose Point of Care 125 mg/dl (65-105)
[2022-11-09 20:05] LABS: Glucose Point of Care 132 mg/dl (65-105)
[2022-11-10] VITALS (15 sets, daily range): BP systolic 93–108; BP diastolic 48–63; PULSE 72–130; RESP 18–22; TEMP 36.2–37; O2SAT 96–100
[2022-11-10] MEDS: dilTIAZem HCL 60 MG TABLET PO ×4 (05:24→23:28)
[2022-11-10] MEDS: SODIUM CHLORIDE 0.9% IV 1,000 ML 50 ML IV CONT (05:24)
[2022-11-10] MEDS: CENTRAL LINE FLUSH 10 ML IV PUSH ×2 (05:24→21:39)
[2022-11-10 05:26] LABS: Hematocrit 30.1 % (42.0-52.0); Hemoglobin 9.8 g/dL (14.0-18.0); Mean Corpuscular HGB Conc 32.6 g/dl (32-36); Mean Corpuscular Hemoglobin 30.9 pg (26-34); Mean Platelet Volume 10.4 fl (7.4-10.4); Platelet Count Result 237 k/mm3 (150-375); Red Blood Count 3.17 M/mm3 (4.6-6.20); Red Cell Distribution Width 19.3 % (11.5-14.5)
[2022-11-10 05:34] LABS: Alanine Aminotransferase 30 U/L (6-50); Albumin Level 2.3 g/dL (3.5-5.1); Alkaline Phosphatase 399 U/L (38-126); Anion Gap 7 mmol/L (8-16); Aspartate Amino Transferase 46 U/L (17-59); Bilirubin,Total 0.5 mg/dL (0.2-1.3); Blood Urea Nitrogen 38 mg/dL (9-20); Calcium 7.5 mg/dL (8.4-10.2); Carbon Dioxide 17 mmol/L (22-30); Chloride 111 mmol/L (98-107); Estimated CRCL calculation 51 ml/min; Estimated Glomerular Filt Rate 46; Glucose 92 mg/dL (65-110); Magnesium 1.6 mg/dL (1.6-2.3); Sodium 135 mmol/L (137-145)
[2022-11-10 06:28] LABS: Atypical Lymphocytes Present; Band Neutrophils Percent 1 % (0-6); Eosinophils Absolute Manual 0.28 K/mm3 (0.02-0.5); Eosinophils Percent Manual 2 % (0-4); Lymphocytes Absolute Manual 1.82 K/mm3 (1.1-4.5); Monocytes Absolute Manual 0.98 K/mm3 (0.1-0.90); Monocytes Percent Manual 7 % (3-9); Neutrophils Absolute Manual 10.92 K/mm3 (1.3-6.7); Neutrophils Percent Manual 77 % (46-73); Schistocytes None Seen (NORMAL); Total Cells Counted 100
[2022-11-10 06:29] LABS: Platelet Estimate Adequate (Adequate)
[2022-11-10 06:30] LABS: Hypochromasia 2+ (NORMAL)
[2022-11-10 08:21] LABS: Glucose Point of Care 105 mg/dl (65-105)
--- NOTE | 2022-11-10 09:48 | PM.IMPN ---
Progress Note: A&P Assessment and Plan (1) Septic shock: Code(s): A41.9 - Sepsis, unspecified organism; R65.21 - Severe sepsis with septic shock Status: Acute Assessment and Plan: Patient meets sepsis criteria with decreased blood pressure, leukocytosis, tachycardia and AGUILAR with creatinine 2.6. WBC 17.5K. Sources probably UTI with bacteremia. Patient received 30 cc/kg IV fluids in the ED. Clinically improved but BP still soft. Also with persistent metabolic acidosis despite normal lactic felt related to AGUILAR. --UCx 11/08 growing GNB --BCx 11/08 growing GNB from aerobic bottle (other set negative) No fevers. WBC trending down Patient has a hx of Enterococcus and ESBL EColi UTI so abx broadened to Ertapenem and Linezolid on 11/09 Monitor BP Follow up on culture results and narrow abx when able (2) Acute kidney injury: Code(s): N17.9 - Acute kidney failure, unspecified Status: Acute Assessment and Plan: Baseline Cr around 1.2. BUN of 65 and creatinine 2.6 on admission. Fluid bolus on admission Continues on IV fluids. Cr better at 1.5 Metabolic acidosis felt related to the AGUILAR with serum bicarb better at 17 and normal anion gap. Will stop IV fluids and add oral bicarb (3) Atrial fibrillation with rapid ventricular response: Code(s): I48.91 - Unspecified atrial fibrillation Status: Acute Assessment and Plan: Patient noted to be atrial fibrillation with rapid ventricular response upon admission. He is known to have chronic atrial fibrillation but no anticoagulation in the past due to hematuria (per notes in the chart). Was treated with Diltiazem drip. He was transitioned to oral diltiazem. BP soft but tolerating this. Metoprolol remains on hold. Continue the same. Monitor on tele (4) Acute UTI: Code(s): N39.0 - Urinary tract infection, site not specified Status: Acute Assessment and Plan: UA noted. Suspect the source of his sepsis. Abx started. UCx noted. (5) Type 2 diabetes mellitus: Qualifiers: Diabetes mellitus usp insulin use: without exterminator helper termite use Diabetes mellitus complication status: without complication Qualified Code(s): E11.9 - Type 2 diabetes mellitus without complications Code(s): E11.9 - Type 2 diabetes mellitus without complications Status: Acute Assessment and Plan: A1c 5.3. The patient's blood glucose was reviewed on 11/10 Glucose remains well controlled. Continue AccuCheks covering with sliding scale. Hypoglycemia protocol available as needed. Continue to monitor (6) Congestive heart failure: Qualifiers: Heart failure type: diastolic Heart failure chronicity: chronic Qualified Code(s): I50.32 - Chronic diastolic (congestive) heart failure Code(s): I50.9 - Heart failure, unspecified Status: Chronic Assessment and Plan: Echo Jan 2022 with EF 45-50% and indeterminate diastolic function. Stable. Not on O2. Clinically euvolemic. Continue to monitor Plan Hypocalcemia - pseudo related to low albumin. Calcium better today. Follow DVT Prophylaxis - Lovenox Code status - Full PT/OT Subjective Date/time seen: 11/10/22 09:48 Interval history: 71yo male with AFib, CHF chronic anemia hypertension diabetes mellitus and learning disability here for confusion. No problems overnight. No SOB or CP. Eating well. No n/v. Exam Narrative: AF 97.1 96/57 94 18 97% ra Gen - NARD sitting up in bed finishing breakfast HEENT -alopecia totalis. Chest -decreased BS in the right base o/w clear. Normal respiratory rate. Port in left upper chest. CV -irregularly irregular. Rate controlled. Telemetry showing AFib with controlled rate with HR around 100 Abd - Soft, NT/ND, Positive BS Ext -no pedal edema. Right foot dressing clean and dry Psych - Nml mood and affect Skin - warm and dry Objective Data Vital Signs Vital Signs: Vital Signs - 2
[2022-11-10] MEDS: FERROUS SULFATE 325 MG TABLET DR BY MOUTH ×2 (10:02→21:39)
[2022-11-10] MEDS: TRIAMCINOLONE ACET 0.1% CREAM 15 GM TUBE 1 APPLIC TOPICAL ×3 (10:02→17:06)
[2022-11-10] MEDS: CYANOCOBALAMIN 500 MCG TABLET PO (10:02)
[2022-11-10] MEDS: MULTIVITAMINS THERAPEUTIC TAB (*BKC) 1 TABLET PO (10:02)
[2022-11-10] MEDS: FLUTICASONE PROPIONATE 0.05% NA SPR 16 GM BTL (*BKC) 2 SPRAY NASAL (10:02)
[2022-11-10] MEDS: FINASTERIDE 5 MG TABLET PO (10:03)
[2022-11-10] MEDS: SIMVASTATIN 10 MG TABLET PO (10:03)
[2022-11-10] MEDS: POTASSIUM CHLORIDE 20 MEQ ER TABLET PO ×2 (10:03→17:06)
[2022-11-10] MEDS: SODIUM BICARBONATE TAB 325 MG TABLET PO ×2 (10:03→17:06)
[2022-11-10] MEDS: ENOXAPARIN 30 MG/0.3 ML SYRINGE SUB-Q (10:03)
[2022-11-10] MEDS: SODIUM BICARBONATE 8.4% 100 MEQ in WATER, STERILE FOR INJECTION 1,000 ML 50 MEQ IV CONT (10:07)
[2022-11-10] MEDS: LINEZOLID 600 MG/300 ML 600 MG/300 ML SOLN 300 MG IVPB (10:08)
[2022-11-10] MEDS: SILVERGEL (ELTA) 45 ML 1 APPLIC TOPICAL (10:09)
[2022-11-10] MEDS: ERTAPENEM 1 GM/NS 50 ML 1 GM/50 ML BAG IVPB (13:06)
[2022-11-10 16:51] LABS: Glucose Point of Care 116 mg/dl (65-105)
[2022-11-10 20:31] LABS: Glucose Point of Care 126 mg/dl (65-105)
[2022-11-11] VITALS (13 sets, daily range): BP systolic 96–111; BP diastolic 61–73; PULSE 73–118; RESP 18–20; TEMP 36–37.6; O2SAT 95–100
[2022-11-11 04:56] LABS: Hemoglobin 9.7 g/dL (14.0-18.0); Mean Corpuscular HGB Conc 32.3 g/dl (32-36); Mean Corpuscular Hemoglobin 30.9 pg (26-34); Mean Corpuscular Volume 95.5 fl (80-100); Platelet Count Result 247 k/mm3 (150-375); Red Blood Count 3.14 M/mm3 (4.6-6.20); Red Cell Distribution Width 19.6 % (11.5-14.5); White Blood Count 12.3 K/mm3 (4.5-10.0)
[2022-11-11] MEDS: CENTRAL LINE FLUSH 10 ML IV PUSH ×3 (05:02→20:30)
[2022-11-11] MEDS: dilTIAZem HCL 60 MG TABLET PO ×4 (05:02→23:35)
[2022-11-11 05:08] LABS: Alanine Aminotransferase 29 U/L (6-50); Albumin Level 2.4 g/dL (3.5-5.1); Alkaline Phosphatase 456 U/L (38-126); Anion Gap 7 mmol/L (8-16); Aspartate Amino Transferase 41 U/L (17-59); Bilirubin,Total 0.5 mg/dL (0.2-1.3); Blood Urea Nitrogen 33 mg/dL (9-20); Calcium 7.7 mg/dL (8.4-10.2); Carbon Dioxide 17 mmol/L (22-30); Chloride 112 mmol/L (98-107); Estimated CRCL calculation 55 ml/min; Estimated Glomerular Filt Rate 50; Glucose 90 mg/dL (65-110); Magnesium 1.8 mg/dL (1.6-2.3); Phosphorus 3.1 mg/dL (2.5-4.5); Potassium 4.2 mmol/L (3.4-5.0); Sodium 136 mmol/L (137-145)
[2022-11-11 05:14] LABS: Glucose Point of Care 161 mg/dl (65-105)
[2022-11-11 05:21] LABS: Anisocytosis 1+ (NORMAL); Band Neutrophils Percent 2 % (0-6); Eosinophils Absolute Manual 0.24 K/mm3 (0.02-0.5); Eosinophils Percent Manual 2 % (0-4); Lymphocytes Absolute Manual 1.47 K/mm3 (1.1-4.5); Monocytes Absolute Manual 0.36 K/mm3 (0.1-0.90); Monocytes Percent Manual 3 % (3-9); Neutrophils Percent Manual 81 % (46-73); Ovalocytes 1+ (NORMAL); Platelet Estimate Adequate (Adequate); Schistocytes Rare (NORMAL); Total Cells Counted 100
[2022-11-11 05:22] LABS: Macrocytosis 1+ (NORMAL)
[2022-11-11 08:33] LABS: Glucose Point of Care 90 mg/dl (65-105)
[2022-11-11] MEDS: POTASSIUM CHLORIDE 20 MEQ ER TABLET PO ×2 (09:22→16:53)
[2022-11-11] MEDS: FINASTERIDE 5 MG TABLET PO (09:23)
[2022-11-11] MEDS: MULTIVITAMINS THERAPEUTIC TAB (*BKC) 1 TABLET PO (09:23)
[2022-11-11] MEDS: SIMVASTATIN 10 MG TABLET PO (09:24)
[2022-11-11] MEDS: SODIUM BICARBONATE TAB 325 MG TABLET PO ×2 (09:24→16:53)
[2022-11-11] MEDS: FERROUS SULFATE 325 MG TABLET DR BY MOUTH ×2 (09:24→20:30)
[2022-11-11] MEDS: CYANOCOBALAMIN 500 MCG TABLET PO (09:24)
[2022-11-11] MEDS: FLUTICASONE PROPIONATE 0.05% NA SPR 16 GM BTL (*BKC) 2 SPRAY NASAL (09:25)
[2022-11-11] MEDS: ENOXAPARIN 30 MG/0.3 ML SYRINGE SUB-Q (09:25)
[2022-11-11] MEDS: TRIAMCINOLONE ACET 0.1% CREAM 15 GM TUBE 1 APPLIC TOPICAL ×3 (09:26→18:50)
--- NOTE | 2022-11-11 09:58 | PM.IMPN ---
Progress Note: A&P Assessment and Plan (1) Septic shock: Code(s): A41.9 - Sepsis, unspecified organism; R65.21 - Severe sepsis with septic shock Status: Acute Assessment and Plan: Patient meets sepsis criteria with decreased blood pressure, leukocytosis, tachycardia and AGUILAR with creatinine 2.6. WBC 17.5K. Sources probably UTI with bacteremia. Patient received 30 cc/kg IV fluids in the ED. Clinically improved but BP still soft. Also with persistent metabolic acidosis despite normal lactic felt related to AGUILAR. --UCx 11/08 growing Klebsiella oxytoca sensitive to meropenem. --BCx 11/08 growing GNB from aerobic bottle (other set negative) No fevers. WBC trending down Monitor BP Follow up on Bld culture results (2) Acute kidney injury: Code(s): N17.9 - Acute kidney failure, unspecified Status: Acute Assessment and Plan: Baseline Cr around 1.2. BUN of 65 and creatinine 2.6 on admission. Fluid bolus on admission Cr better at 1.4 Metabolic acidosis felt related to the AGUILAR with serum bicarb stable at 17 and normal anion gap. Continue oral bicarb (3) Atrial fibrillation with rapid ventricular response: Code(s): I48.91 - Unspecified atrial fibrillation Status: Acute Assessment and Plan: Patient has chronic AFib and noted to be atrial fibrillation with rapid ventricular response upon admission. He is not on anticoagulation in the past due to hematuria (per notes in the chart). He is on Diltiazem CD 240mg daily and Toprol XL 100mg daily Was treated with Diltiazem drip. He was transitioned to oral diltiazem 60mg Q6h. BP soft but tolerating this. Metoprolol remains on hold. HR reasonably well controlled. 1 Continue the same. Monitor on tele (4) Acute UTI: Code(s): N39.0 - Urinary tract infection, site not specified Status: Acute Assessment and Plan: UA noted. Suspect the source of his sepsis. Abx started. UCx noted. (5) Type 2 diabetes mellitus: Qualifiers: Diabetes mellitus termite exterminator insulin use: without termite exterminator use Diabetes mellitus complication status: without complication Qualified Code(s): E11.9 - Type 2 diabetes mellitus without complications Code(s): E11.9 - Type 2 diabetes mellitus without complications Status: Acute Assessment and Plan: A1c 5.3. The patient's blood glucose was reviewed on 11/11 Glucose remains well controlled. Continue AccuCheks covering with sliding scale. Hypoglycemia protocol available as needed. Continue to monitor (6) Congestive heart failure: Qualifiers: Heart failure type: diastolic Heart failure chronicity: chronic Qualified Code(s): I50.32 - Chronic diastolic (congestive) heart failure Code(s): I50.9 - Heart failure, unspecified Status: Chronic Assessment and Plan: Echo Jan 2022 with EF 45-50% and indeterminate diastolic function. Stable. Clinically euvolemic. Continue to monitor Plan Hypocalcemia - pseudo related to low albumin. Calcium better. Follow DVT Prophylaxis - Lovenox Code status - Full PT/OT Subjective Date/time seen: 11/11/22 09:58 Interval history: 71yo male with AFib, CHF chronic anemia hypertension diabetes mellitus and learning disability here for confusion. No CP or SOB. No n/v. Eating well. Walking with walker to the chair. RN concerned about swallowing ability. Exam Narrative: AF 96.8 96/64 102 18 98% ra Gen - NARD sitting up in bed just having had breakfast (ate 100%) HEENT -alopecia totalis. Chest -CTA bilaterally. Normal respiratory rate. Port in left upper chest. CV -irregularly irregular. Rate controlled. Telemetry showing AFib with controlled rate with HR 100-110 Abd - Soft, NT/ND, Positive BS Ext -no pedal edema. Right foot dressing clean and dry Psych - Nml mood and affect Skin - warm and dry Objective Data Vital Signs Vital Signs: Vital Signs - 24 hr 11/10/22 12:0
[2022-11-11] MEDS: ERTAPENEM 1 GM/NS 50 ML 1 GM/50 ML BAG IVPB (12:02)
[2022-11-11] MEDS: SILVERGEL (ELTA) 45 ML 1 APPLIC TOPICAL (12:03)
[2022-11-11 12:28] LABS: Glucose Point of Care 197 mg/dl (65-105)
--- NOTE | 2022-11-11 15:40 | PCSTNOTE ---
Please refer to the Bedside Swallow Evaluation in the EMR. Please note, silent aspiration cannot be ruled out at bedside.
[2022-11-11 20:36] LABS: Glucose Point of Care 106 mg/dl (65-105)
[2022-11-12] VITALS (11 sets, daily range): BP systolic 98–121; BP diastolic 61–79; PULSE 82–123; RESP 16–20; TEMP 35.7–37.5; O2SAT 100
[2022-11-12] MEDS: CENTRAL LINE FLUSH 10 ML IV PUSH ×3 (05:11→20:23)
[2022-11-12] MEDS: dilTIAZem HCL 60 MG TABLET PO ×4 (05:11→23:32)
[2022-11-12 05:26] LABS: Basophils Absolute Auto 0.1 K/mm3 (0.0-0.1); Basophils Percent Auto 1.2 % (0.2-1.2); Eosinophils Absolute Auto 0.5 K/mm3 (0-0.3); Eosinophils Percent Auto 5.1 % (0-4.4); Hematocrit 30.4 % (42.0-52.0); Hemoglobin 9.9 g/dL (14.0-18.0); Immature Granulocyte Absolute 0.62 K/mm3 (0.00-0.031); Immature Granulocyte Percent A 5.9 % (0-0.5); Lymphocytes Absolute Auto 1.74 K/mm3 (0.9-3.2); Lymphocytes Percent Auto 16.5 % (18.3-44.2); Mean Corpuscular HGB Conc 32.6 g/dl (32-36); Mean Corpuscular Hemoglobin 30.7 pg (26-34); Mean Corpuscular Volume 94.4 fl (80-100); Mean Platelet Volume 10.3 fl (7.4-10.4); Monocytes Percent Auto 9.8 % (2.6-8.5); Neutrophils Absolute Auto 6.5 K/mm3 (1.3-6.7); Neutrophils Percent Auto 61.5 % (45.5-73.1); Platelet Count Result 261 k/mm3 (150-375); Red Blood Count 3.22 M/mm3 (4.6-6.20); Red Cell Distribution Width 19.5 % (11.5-14.5); White Blood Count 10.5 K/mm3 (4.5-10.0)
[2022-11-12 05:40] LABS: Alanine Aminotransferase 30 U/L (6-50); Albumin Level 2.4 g/dL (3.5-5.1); Alkaline Phosphatase 516 U/L (38-126); Anion Gap 6 mmol/L (8-16); Aspartate Amino Transferase 46 U/L (17-59); Bilirubin,Total 0.4 mg/dL (0.2-1.3); Blood Urea Nitrogen 27 mg/dL (9-20); Calcium 7.8 mg/dL (8.4-10.2); Carbon Dioxide 21 mmol/L (22-30); Chloride 112 mmol/L (98-107); Estimated CRCL calculation 63 ml/min; Estimated Glomerular Filt Rate 60; Glucose 88 mg/dL (65-110); Potassium 4.6 mmol/L (3.4-5.0); Sodium 139 mmol/L (137-145)
[2022-11-12 06:19] LABS: Glucose Point of Care 121 mg/dl (65-105)
--- NOTE | 2022-11-12 07:55 | PM.IMPN ---
Progress Note: A&P Assessment and Plan (1) Septic shock: Code(s): A41.9 - Sepsis, unspecified organism; R65.21 - Severe sepsis with septic shock Status: Acute Assessment and Plan: Patient meets sepsis criteria with decreased blood pressure, leukocytosis, tachycardia and AGUILAR with creatinine 2.6. WBC 17.5K. Sources UTI with bacteremia. Patient received 30 cc/kg IV fluids in the ED. Clinically improved but BP still soft. Also with persistent metabolic acidosis despite normal lactic felt related to AGUILAR. --UCx 11/08 growing Klebsiella oxytoca sensitive to meropenem. --BCx 11/08 growing Klebsiella oxytoca sensitive to meropenem from aerobic bottle (other set negative) No fevers. WBC trending down Monitor BP Cultures sensitive to meropenem but resistant to Rocephin and Amox concerning for ESBL. Sensitive to Levofloxacin. Sensitive to carbapenems so should be okay for fluoroquinolones. Plan to knife changer in am to Levaquin. (2) Acute kidney injury: Code(s): N17.9 - Acute kidney failure, unspecified Status: Acute Assessment and Plan: Baseline Cr around 1.2. BUN of 65 and creatinine 2.6 on admission. Fluid bolus on admission CT scan showing persistent bilateral hydroureteronephrosis extending to bladder. Noted since April Cr better at 1.2 Metabolic acidosis felt related to the AGUILAR; serum bicarb better at 21 and normal anion gap. Continue oral bicarb Check renal US. Urology consult (3) Atrial fibrillation with rapid ventricular response: Code(s): I48.91 - Unspecified atrial fibrillation Status: Acute Assessment and Plan: Patient has chronic AFib and noted to be atrial fibrillation with rapid ventricular response upon admission. He is not on anticoagulation in the past due to hematuria (per notes in the chart). He is on Diltiazem CD 240mg daily and Toprol XL 100mg daily Was treated with Diltiazem drip. He was transitioned to oral diltiazem 60mg Q6h. BP soft but tolerating this. Metoprolol remains on hold. HR higher now. Will add back low dose metoprolol. Continue to monitor Monitor on tele (4) Acute UTI: Code(s): N39.0 - Urinary tract infection, site not specified Status: Acute Assessment and Plan: UA noted. Suspect the source of his sepsis. Abx started. UCx noted. (5) Type 2 diabetes mellitus: Qualifiers: Diabetes mellitus complication status: without complication Diabetes mellitus mcc insulin use: without anesthesia assistant use Qualified Code(s): E11.9 - Type 2 diabetes mellitus without complications Code(s): E11.9 - Type 2 diabetes mellitus without complications Status: Acute Assessment and Plan: A1c 5.3. The patient's blood glucose was reviewed on 11/12 Glucose remains well controlled. Continue AccuCheks covering with sliding scale. Hypoglycemia protocol available as needed. Continue to monitor (6) Congestive heart failure: Qualifiers: Heart failure chronicity: chronic Heart failure type: diastolic Qualified Code(s): I50.32 - Chronic diastolic (congestive) heart failure Code(s): I50.9 - Heart failure, unspecified Status: Chronic Assessment and Plan: Echo Jan 2022 with EF 45-50% and indeterminate diastolic function. Stable. Clinically euvolemic. Continue to monitor (7) Colon cancer: Code(s): C18.9 - Malignant neoplasm of colon, unspecified Status: Chronic Assessment and Plan: Patient with metastatic adenocarcinoma stage IV colon cancer. Current treatment is irinotecan and Avastin biweekly that December 2020. CT A/P here showing hepatic masses and lung nodules that have increased since July 2021. Probably the etiology of the elevated AlkPhos. Also with cirrhosis. Patient to follow up with Oncology after discharge Plan Hypocalcemia - pseudo related to low albumin. Calcium better. Follow DVT Prophylaxis - Lovenox Code status - Full PT/OT Subje
[2022-11-12] MEDS: ENOXAPARIN 30 MG/0.3 ML SYRINGE SUB-Q (08:43)
[2022-11-12] MEDS: MULTIVITAMINS THERAPEUTIC TAB (*BKC) 1 TABLET PO (08:44)
[2022-11-12] MEDS: POTASSIUM CHLORIDE 20 MEQ ER TABLET PO ×2 (08:44→16:58)
[2022-11-12] MEDS: SIMVASTATIN 10 MG TABLET PO (08:44)
[2022-11-12] MEDS: SODIUM BICARBONATE TAB 325 MG TABLET PO ×2 (08:44→16:58)
[2022-11-12] MEDS: CYANOCOBALAMIN 500 MCG TABLET PO (08:44)
[2022-11-12] MEDS: FERROUS SULFATE 325 MG TABLET DR BY MOUTH ×2 (08:44→20:23)
[2022-11-12] MEDS: FINASTERIDE 5 MG TABLET PO (08:44)
[2022-11-12] MEDS: SILVERGEL (ELTA) 45 ML 1 APPLIC TOPICAL (08:45)
[2022-11-12] MEDS: TRIAMCINOLONE ACET 0.1% CREAM 15 GM TUBE 1 APPLIC TOPICAL (08:45)
[2022-11-12] MEDS: FLUTICASONE PROPIONATE 0.05% NA SPR 16 GM BTL (*BKC) 2 SPRAY NASAL (08:47)
[2022-11-12] MEDS: METOPROLOL TARTRATE 12.5 MG TABLET PO ×2 (08:48→20:22)
[2022-11-12 08:54] LABS: Glucose Point of Care 103 mg/dl (65-105)
--- NOTE | 2022-11-12 10:46 | PC.NURSE ---
This patient, Donaldo Booker, was transferred to [facility] 11/12/22 at 1047. Personal belongings sent with patient. Report given to RN. Appropriate documentation sent with patient.
[2022-11-12] MEDS: ERTAPENEM 1 GM/NS 50 ML 1 GM/50 ML BAG IVPB (10:59)
[2022-11-12 11:21] LABS: Glucose Point of Care 138 mg/dl (65-105)
--- NOTE | 2022-11-12 12:29 | PC.NURSE ---
Pt received from IMU from [facility] at 1047. Pt. sat up in the chair and oriented on unit policy and procedures.
--- NOTE | 2022-11-12 16:06 | WPDURCON ---
Assessment and Plan Assessment and plan (1) Acute UTI: Code(s): N39.0 - Urinary tract infection, site not specified Status: Acute Assessment and Plan: Continue Ertapenem. (2) Urinary retention: Code(s): R33.9 - Retention of urine, unspecified Status: Acute Assessment and Plan: Kincaid placed, with 500cc of output. Keep kincaid for 7-10 days, then do voiding trial in the office. Start Tamsulosin, Keep Finasteride. Repeat a KATARZYNA in 2-3 days to ensure resolution of hydro. Urology Consult Note HPI Date Seen: 11/12/22 Time Seen: 13:00 Requesting Physician: Matt Carr MD Primary Care Provider: Carli Caldwell DO Consult Narrative Reason for consult: UTI/Retention/Hydronephrosis Narrative: Donaldo Booker is a 71 year old male who presented to the ER on 11/08/22 with altered mental status. He was found to have persistent moderate bilateral hydronephrosis and left possible pyelonephritis on CT on 11/08/22 as well. Urine culture from admission grew Klebsiella as well as blood cultures. He remains on Ertapenem. His WBC is 10.5, creatinine is 1.20 and he is afebrile. He Had a KATARZYNA today which showed persistent moderate hydronephrosis bilaterally and bilateral cysts. He is a poor historian but was A&O x 2. He is currently on Finasteride for BPH. I retrieved all information from the chart and the nursing staff. Review of Systems Review of Systems: ROS unobtainable: Yes unobtainable due to mental status PMFSH Past Medical History Medical History 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 Atrial fibrillation Chronic anemia Colon cancer Receiving chemotherapy treatment. Congestive heart failure Echocardiogram in January 2020 showed mildly enlarged left ventricle with mild reduction left ventricular function with an EF of 45 to 50% as well as significant biatrial dilatation and small amounts of atrial, mitral, and tricuspid regurgitation. Diabetic peripheral neuropathy Essential hypertension Gout Incomplete right bundle branch block Learning disability alf current use of anticoagulant On warfarin for stroke prophylaxis due to atrial fibrillation. Mixed hyperlipidemia Neuropathy Osteomyelitis Status post amputation of left 2nd toe. Peripheral vascular disease Thrombocytopenia Toe osteomyelitis, left Type 2 diabetes mellitus Surgical History Surgical History History of amputation of lesser toe of left foot Treatment of osteomyelitis in 10/2013 & 01/2015. History of foot surgery 10/2022, right toe History of partial colectomy (~07/2017) Hand assisted laparoscopic low anterior resection with colorectal anastomosis for treatment of colon cancer. History of removal of pigmented skin lesion History of skin graft To poorly healing wound of the lower extremity. Port-A-Cath in place Family History Family History Mother Diabetes mellitus Father Cerebrovascular accident Other Family history of arthritis Family history of cardiovascular disease Family history of heart disease in male family member before age 55 Family history of thyroid disease Social History Social History Social History: The patient lives alone in his own apartment in [place]. He is single and never had children. 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 Lifelong nonsmoker. No alcohol or illicit substance use. Very active in his worship. He is not certain who he would want to be his surrogate decision maker at this time and wishes to think about it. Full code. Caffeine- Smoking status: Never smoker Second hand tobacco smoke exposure: No Alcohol intake: never Substa
[2022-11-12 16:18] LABS: Glucose Point of Care 125 mg/dl (65-105)
[2022-11-12 19:43] LABS: Glucose Point of Care 112 mg/dl (65-105)
[2022-11-13] VITALS (11 sets, daily range): BP systolic 97–114; BP diastolic 57–82; PULSE 98–137; RESP 18–20; TEMP 35.6–37.1; O2SAT 95–99
[2022-11-13] MEDS: CENTRAL LINE FLUSH 10 ML IV PUSH ×2 (05:05→13:14)
[2022-11-13] MEDS: dilTIAZem HCL 60 MG TABLET PO (05:05)
[2022-11-13 05:48] LABS: Basophils Absolute Auto 0.1 K/mm3 (0.0-0.1); Basophils Percent Auto 1.1 % (0.2-1.2); Eosinophils Absolute Auto 0.5 K/mm3 (0-0.3); Eosinophils Percent Auto 5.1 % (0-4.4); Hematocrit 31.3 % (42.0-52.0); Hemoglobin 9.9 g/dL (14.0-18.0); Immature Granulocyte Absolute 0.53 K/mm3 (0.00-0.031); Immature Granulocyte Percent A 5.8 % (0-0.5); Lymphocytes Absolute Auto 1.65 K/mm3 (0.9-3.2); Lymphocytes Percent Auto 17.9 % (18.3-44.2); Mean Corpuscular HGB Conc 31.6 g/dl (32-36); Mean Corpuscular Hemoglobin 30.6 pg (26-34); Mean Corpuscular Volume 96.6 fl (80-100); Mean Platelet Volume 9.8 fl (7.4-10.4); Monocytes Absolute Auto 0.8 K/mm3 (0.1-0.6); Monocytes Percent Auto 8.5 % (2.6-8.5); Neutrophils Absolute Auto 5.7 K/mm3 (1.3-6.7); Neutrophils Percent Auto 61.6 % (45.5-73.1); Platelet Count Result 243 k/mm3 (150-375); Red Blood Count 3.24 M/mm3 (4.6-6.20); White Blood Count 9.2 K/mm3 (4.5-10.0)
[2022-11-13 06:03] LABS: Alanine Aminotransferase 30 U/L (6-50); Albumin Level 2.4 g/dL (3.5-5.1); Alkaline Phosphatase 597 U/L (38-126); Anion Gap 4 mmol/L (8-16); Aspartate Amino Transferase 48 U/L (17-59); Bilirubin,Total 0.4 mg/dL (0.2-1.3); Blood Urea Nitrogen 24 mg/dL (9-20); Calcium 7.9 mg/dL (8.4-10.2); Carbon Dioxide 23 mmol/L (22-30); Chloride 112 mmol/L (98-107); Estimated CRCL calculation 74 ml/min; Estimated Glomerular Filt Rate > 60; Glucose 84 mg/dL (65-110); Sodium 139 mmol/L (137-145)
[2022-11-13 08:05] LABS: Glucose Point of Care 89 mg/dl (65-105)
[2022-11-13] MEDS: SIMVASTATIN 10 MG TABLET PO (09:09)
[2022-11-13] MEDS: FERROUS SULFATE 325 MG TABLET DR BY MOUTH ×2 (09:09→20:23)
[2022-11-13] MEDS: dilTIAZem HCL CD 240 MG CAP.24HR PO (09:09)
[2022-11-13] MEDS: TAMSULOSIN HCL 0.4 MG CAPSULE PO (09:09)
[2022-11-13] MEDS: CYANOCOBALAMIN 500 MCG TABLET PO (09:09)
[2022-11-13] MEDS: MULTIVITAMINS THERAPEUTIC TAB (*BKC) 1 TABLET PO (09:09)
[2022-11-13] MEDS: METOPROLOL TARTRATE 25 MG TABLET PO ×2 (09:09→20:38)
[2022-11-13] MEDS: FINASTERIDE 5 MG TABLET PO (09:09)
[2022-11-13] MEDS: ENOXAPARIN 40 MG/0.4 ML SYRINGE SUB-Q (09:11)
[2022-11-13] MEDS: SILVERGEL (ELTA) 45 ML 1 APPLIC TOPICAL (09:12)
[2022-11-13] MEDS: TRIAMCINOLONE ACET 0.1% CREAM 15 GM TUBE 1 APPLIC TOPICAL ×3 (09:13→18:25)
[2022-11-13 11:35] LABS: Glucose Point of Care 150 mg/dl (65-105)
[2022-11-13] MEDS: levoFLOXacin 750 MG TABLET PO (11:36)
--- NOTE | 2022-11-13 14:08 | PCPTNOTE ---
Patient presented with low blood pressure 93/54 and increased fatigue at this time. Patient not appropriate at this time. Will check back at later time after discussing with nursing staff.
--- NOTE | 2022-11-13 17:02 | PM.IMPN ---
Progress Note: A&P Assessment and Plan (1) Septic shock: Code(s): A41.9 - Sepsis, unspecified organism; R65.21 - Severe sepsis with septic shock Status: Acute Assessment and Plan: Patient meets sepsis criteria with decreased blood pressure, leukocytosis, tachycardia and AGUILAR with creatinine 2.6. WBC 17.5K. Sources UTI with bacteremia. Patient received 30 cc/kg IV fluids in the ED. Clinically improved but BP still soft at times. Also with persistent metabolic acidosis despite normal lactic felt related to AGUILAR. --UCx 11/08 growing Klebsiella oxytoca sensitive to meropenem. --BCx 11/08 growing Klebsiella oxytoca sensitive to meropenem from aerobic bottle (other set negative) No fevers. WBC normal now Monitor BP Changed to oral Levaquin. (2) Acute kidney injury: Code(s): N17.9 - Acute kidney failure, unspecified Status: Acute Assessment and Plan: Baseline Cr around 1.2. BUN of 65 and creatinine 2.6 on admission. Fluid bolus on admission CT scan showing persistent bilateral hydroureteronephrosis extending to bladder. Noted since April Cr better at 1.2 Metabolic acidosis felt related to the AGUILAR; serum bicarb normal now Stop oral bicarb Urology consulted and Chua placed. Keep Chua for 7-10 days with plans to do voiding trial in the urology office. Tamsulosin started. Continue Finasteride. Repeat a Renal US in 2-3 days to ensure resolution of hydro. (3) Atrial fibrillation with rapid ventricular response: Code(s): I48.91 - Unspecified atrial fibrillation Status: Acute Assessment and Plan: Patient has chronic AFib and noted to be atrial fibrillation with rapid ventricular response upon admission. He is not on anticoagulation in the past due to hematuria (per notes in the chart). He is on Diltiazem CD 240mg daily and Toprol XL 100mg daily Was treated with Diltiazem drip. He was transitioned to oral diltiazem 60mg Q6h. BP soft but tolerating this. HR higher now and low dose metoprolol added. Change to Diltiazem CD 240mg daily today. Advance metoprolol Continue to monitor. Monitor on tele Add Tima hose given his soft BP (4) Acute UTI: Code(s): N39.0 - Urinary tract infection, site not specified Status: Acute Assessment and Plan: UA noted. Suspect the source of his sepsis. Abx started. UCx noted. (5) Type 2 diabetes mellitus: Qualifiers: Diabetes mellitus mcfp insulin use: without mcfp use Diabetes mellitus complication status: without complication Qualified Code(s): E11.9 - Type 2 diabetes mellitus without complications Code(s): E11.9 - Type 2 diabetes mellitus without complications Status: Acute Assessment and Plan: A1c 5.3. The patient's blood glucose was reviewed on 11/13 Glucose remains well controlled. Continue AccuCheks covering with sliding scale. Hypoglycemia protocol available as needed. Hold Januvia. Continue to monitor (6) Congestive heart failure: Qualifiers: Heart failure type: diastolic Heart failure chronicity: chronic Qualified Code(s): I50.32 - Chronic diastolic (congestive) heart failure Code(s): I50.9 - Heart failure, unspecified Status: Chronic Assessment and Plan: Echo Jan 2022 with EF 45-50% and indeterminate diastolic function. Stable. Clinically euvolemic. Continue to monitor (7) Colon cancer: Code(s): C18.9 - Malignant neoplasm of colon, unspecified Status: Chronic Assessment and Plan: Patient with metastatic adenocarcinoma stage IV colon cancer. Current treatment is irinotecan and Avastin biweekly that December 2020. CT A/P here showing hepatic masses and lung nodules that have increased since July 2021. Probably the etiology of the elevated AlkPhos. Also with cirrhosis. Patient to follow up with Oncology after discharge Plan DVT Prophylaxis - Lovenox Code status - Full PT/OT Subjective Date/time seen:
[2022-11-13 17:08] LABS: Glucose Point of Care 106 mg/dl (65-105)
[2022-11-13 21:35] LABS: Glucose Point of Care 135 mg/dl (65-105)
[2022-11-14] VITALS (14 sets, daily range): BP systolic 98–140; BP diastolic 58–96; PULSE 75–150; RESP 18–22; TEMP 36.4–37; O2SAT 95–98
[2022-11-14] MEDS: CENTRAL LINE FLUSH 10 ML IV PUSH ×4 (00:29→21:09)
[2022-11-14 05:59] LABS: Albumin Level 2.4 g/dL (3.5-5.1); Anion Gap 5 mmol/L (8-16); Blood Urea Nitrogen 23 mg/dL (9-20); Calcium 7.8 mg/dL (8.4-10.2); Carbon Dioxide 22 mmol/L (22-30); Chloride 113 mmol/L (98-107); Estimated CRCL calculation 75 ml/min; Estimated Glomerular Filt Rate > 60; Glucose 85 mg/dL (65-110); Magnesium 1.9 mg/dL (1.6-2.3); Phosphorus 3.6 mg/dL (2.5-4.5); Potassium 4.7 mmol/L (3.4-5.0); Sodium 140 mmol/L (137-145)
[2022-11-14 08:03] LABS: Glucose Point of Care 88 mg/dl (65-105)
[2022-11-14] MEDS: dilTIAZem HCL CD 240 MG CAP.24HR PO (08:21)
[2022-11-14] MEDS: CYANOCOBALAMIN 500 MCG TABLET PO (08:28)
[2022-11-14] MEDS: TAMSULOSIN HCL 0.4 MG CAPSULE PO (08:28)
[2022-11-14] MEDS: ENOXAPARIN 40 MG/0.4 ML SYRINGE SUB-Q (08:28)
[2022-11-14] MEDS: SIMVASTATIN 10 MG TABLET PO (08:28)
[2022-11-14] MEDS: MULTIVITAMINS THERAPEUTIC TAB (*BKC) 1 TABLET PO (08:28)
[2022-11-14] MEDS: FERROUS SULFATE 325 MG TABLET DR BY MOUTH ×2 (08:28→21:05)
[2022-11-14] MEDS: FINASTERIDE 5 MG TABLET PO (08:29)
[2022-11-14] MEDS: FLUTICASONE PROPIONATE 0.05% NA SPR 16 GM BTL (*BKC) 2 SPRAY NASAL (08:43)
[2022-11-14] MEDS: SILVERGEL (ELTA) 45 ML 1 APPLIC TOPICAL (08:45)
[2022-11-14] MEDS: TRIAMCINOLONE ACET 0.1% CREAM 15 GM TUBE 1 APPLIC TOPICAL ×3 (08:45→17:52)
[2022-11-14] MEDS: DIGOXIN INJ 250 MCG/ML 2 ML AMP (*BKC) IV PUSH ×2 (10:24→17:50)
[2022-11-14] MEDS: levoFLOXacin 750 MG TABLET PO (10:26)
[2022-11-14] MEDS: METOPROLOL TARTRATE 50 MG TAB PO (11:50)
[2022-11-14] MEDS: ALBUMIN HUMAN 25% 25 GM/100 ML 100 ML IVPB ×3 (11:50→23:40)
[2022-11-14 12:03] LABS: Glucose Point of Care 169 mg/dl (65-105)
--- NOTE | 2022-11-14 12:37 | PM.IMPN ---
Progress Note: A&P Assessment and Plan (1) Atrial fibrillation with rapid ventricular response: Code(s): I48.91 - Unspecified atrial fibrillation Status: Acute Assessment and Plan: Patient has chronic AFib and noted to be atrial fibrillation with rapid ventricular response upon admission. He is not on anticoagulation in the past due to hematuria (per notes in the chart). He is on Diltiazem CD 240mg daily and Toprol XL 100mg daily Patient treated with Diltiazem drip. He was transitioned to oral diltiazem 60mg Q6h. BP soft but tolerating this. HR higher so low dose metoprolol added and advanced. Changed back home Diltiazem CD 240mg daily HR still poorly controlled and BP soft. Digoxin added. Albumin to improve BP Continue to monitor. Monitor on tele (2) Septic shock: Code(s): A41.9 - Sepsis, unspecified organism; R65.21 - Severe sepsis with septic shock Status: Acute Assessment and Plan: Patient meets sepsis criteria with decreased blood pressure, leukocytosis, tachycardia and AGUILAR with creatinine 2.6. WBC 17.5K. Sources UTI with bacteremia. Patient received 30 cc/kg IV fluids in the ED. Also with metabolic acidosis despite normal lactic felt related to AGUILAR. --UCx 11/08 growing Klebsiella oxytoca sensitive to meropenem. --BCx 11/08 growing Klebsiella oxytoca sensitive to meropenem from aerobic bottle (other set negative) No fevers. WBC normal now Clinically improved but BP still soft at times. Changed to oral Levaquin complete a course. (3) Acute kidney injury: Code(s): N17.9 - Acute kidney failure, unspecified Status: Acute Assessment and Plan: Baseline Cr around 1.2. BUN of 65 and creatinine 2.6 on admission. Fluid bolus on admission CT scan showing persistent bilateral hydroureteronephrosis extending to bladder. Noted since April Cr better at 1.2 Metabolic acidosis felt related to the AGUILAR treated with oral bicarb; serum bicarb normalized and oral bicarb stopped Urology consulted and Chua placed. Keep Chua for 7-10 days with plans to do voiding trial in the urology office. Tamsulosin started. Continue Finasteride. Repeat Renal US today to ensure resolution of hydro (results pending). (4) Acute UTI: Code(s): N39.0 - Urinary tract infection, site not specified Status: Acute Assessment and Plan: UA noted. Suspect the source of his sepsis. Abx as above. UCx noted. (5) Type 2 diabetes mellitus: Qualifiers: Diabetes mellitus complication status: without complication Diabetes mellitus care home insulin use: without joint terminal attack controller use Qualified Code(s): E11.9 - Type 2 diabetes mellitus without complications Code(s): E11.9 - Type 2 diabetes mellitus without complications Status: Acute Assessment and Plan: A1c 5.3. The patient's blood glucose was reviewed on 11/14 Glucose remains well controlled. Continue AccuCheks covering with sliding scale. Hypoglycemia protocol available as needed. Hold Januvia. Continue to monitor (6) Congestive heart failure: Qualifiers: Heart failure chronicity: chronic Heart failure type: diastolic Qualified Code(s): I50.32 - Chronic diastolic (congestive) heart failure Code(s): I50.9 - Heart failure, unspecified Status: Chronic Assessment and Plan: Echo Jan 2022 with EF 45-50% and indeterminate diastolic function. Stable. Clinically euvolemic. Continue to monitor (7) Colon cancer: Code(s): C18.9 - Malignant neoplasm of colon, unspecified Status: Chronic Assessment and Plan: Patient with metastatic adenocarcinoma stage IV colon cancer. Current treatment is irinotecan and Avastin biweekly that December 2020. CT A/P here showing hepatic masses and lung nodules that have increased since July 2021. Probably the etiology of the elevated AlkPhos. Also with cirrhosis. Patient to follow up with Oncology after discharge Plan DVT
--- NOTE | 2022-11-14 12:48 | PCPTNOTE ---
Nurse stated to hold on therapy at this time due to patient having low blood pressure and increased heart rate. Will attempt at later time.
[2022-11-14] MEDS: MAGNESIUM SULF 1 GM/D5W 100 ML 1 GM/100 ML BAG IVPB (13:39)
[2022-11-14 17:01] LABS: Glucose Point of Care 99 mg/dl (65-105)
[2022-11-14] MEDS: METOPROLOL TARTRATE 25 MG TABLET PO (21:05)
[2022-11-14 23:23] LABS: Glucose Point of Care 128 mg/dl (65-105)
[2022-11-15] VITALS (7 sets, daily range): BP systolic 101–130; BP diastolic 61–86; PULSE 74–120; RESP 14–20; TEMP 36.6–37; O2SAT 96–99
[2022-11-15] MEDS: ALBUMIN HUMAN 25% 25 GM/100 ML 100 ML IVPB (05:25)
[2022-11-15 05:45] LABS: Anion Gap 6 mmol/L (8-16); Blood Urea Nitrogen 20 mg/dL (9-20); Calcium 7.9 mg/dL (8.4-10.2); Carbon Dioxide 23 mmol/L (22-30); Chloride 111 mmol/L (98-107); Estimated CRCL calculation 75 ml/min; Estimated Glomerular Filt Rate > 60; Glucose 86 mg/dL (65-110); Magnesium 2.1 mg/dL (1.6-2.3); Potassium 4.6 mmol/L (3.4-5.0); Sodium 140 mmol/L (137-145)
[2022-11-15] MEDS: CENTRAL LINE FLUSH 10 ML IV PUSH ×3 (06:27→20:30)
[2022-11-15 08:27] LABS: Glucose Point of Care 85 mg/dl (65-105)
[2022-11-15] MEDS: FERROUS SULFATE 325 MG TABLET DR BY MOUTH ×2 (08:35→20:28)
[2022-11-15] MEDS: MULTIVITAMINS THERAPEUTIC TAB (*BKC) 1 TABLET PO (08:35)
[2022-11-15] MEDS: TAMSULOSIN HCL 0.4 MG CAPSULE PO (08:35)
[2022-11-15] MEDS: CYANOCOBALAMIN 500 MCG TABLET PO (08:35)
[2022-11-15] MEDS: dilTIAZem HCL CD 240 MG CAP.24HR PO (08:35)
[2022-11-15] MEDS: METOPROLOL TARTRATE 50 MG TAB PO ×2 (08:35→20:28)
[2022-11-15] MEDS: ENOXAPARIN 40 MG/0.4 ML SYRINGE SUB-Q (08:35)
[2022-11-15] MEDS: SIMVASTATIN 10 MG TABLET PO (08:35)
[2022-11-15] MEDS: TRIAMCINOLONE ACET 0.1% CREAM 15 GM TUBE 1 APPLIC TOPICAL ×2 (08:36→14:08)
[2022-11-15] MEDS: FLUTICASONE PROPIONATE 0.05% NA SPR 16 GM BTL (*BKC) 2 SPRAY NASAL (08:36)
[2022-11-15] MEDS: FINASTERIDE 5 MG TABLET PO (08:36)
[2022-11-15] MEDS: SILVERGEL (ELTA) 45 ML 1 APPLIC TOPICAL (08:36)
[2022-11-15] MEDS: levoFLOXacin 750 MG TABLET PO (11:39)
--- NOTE | 2022-11-15 11:49 | PM.IMPN ---
Progress Note: A&P Assessment and Plan (1) Atrial fibrillation with rapid ventricular response: Code(s): I48.91 - Unspecified atrial fibrillation Status: Acute Assessment and Plan: Patient has chronic AFib and noted to be atrial fibrillation with rapid ventricular response upon admission. He is not on anticoagulation in the past due to hematuria (per notes in the chart). He is on Diltiazem CD 240mg daily and Toprol XL 100mg daily Patient treated with Diltiazem drip. He was transitioned to oral diltiazem 60mg Q6h the back to home Cardizem CD 240mg. BP soft but tolerating this. HR higher so low dose metoprolol added and advanced. HR still poorly controlled and BP soft so Digoxin added. Albumin to improve BP HR better and toelrating home dose of metoprolol. Hold on continuing Digoxin Continue to monitor. Monitor on tele (2) Septic shock: Code(s): A41.9 - Sepsis, unspecified organism; R65.21 - Severe sepsis with septic shock Status: Acute Assessment and Plan: Patient meets sepsis criteria with decreased blood pressure, leukocytosis, tachycardia and AGUILAR with creatinine 2.6. WBC 17.5K. Sources UTI with bacteremia. Patient received 30 cc/kg IV fluids in the ED. Also with metabolic acidosis despite normal lactic felt related to AGUILAR. --UCx 11/08 growing Klebsiella oxytoca sensitive to meropenem. --BCx 11/08 growing Klebsiella oxytoca sensitive to meropenem from aerobic bottle (other set negative) No fevers. WBC normal now Clinically improved but BP still soft at times. Changed to oral Levaquin to complete a course. (3) Acute kidney injury: Code(s): N17.9 - Acute kidney failure, unspecified Status: Acute Assessment and Plan: Baseline Cr around 1.2. BUN of 65 and creatinine 2.6 on admission. Fluid bolus on admission CT scan showing persistent bilateral hydroureteronephrosis extending to bladder. Noted since April Cr better at 1.2 Metabolic acidosis felt related to the AGUILAR treated with oral bicarb; serum bicarb normalized and oral bicarb stopped Urology consulted and Chua placed. Keep Chua for 7-10 days with plans to do voiding trial in the urology office. Tamsulosin started. Continue Finasteride. Repeat Renal US showing resolution of hydro (4) Acute UTI: Code(s): N39.0 - Urinary tract infection, site not specified Status: Acute Assessment and Plan: UA noted. Suspect the source of his sepsis. Abx as above. UCx noted. (5) Type 2 diabetes mellitus: Qualifiers: Diabetes mellitus custodial insulin use: without custodial use Diabetes mellitus complication status: without complication Qualified Code(s): E11.9 - Type 2 diabetes mellitus without complications Code(s): E11.9 - Type 2 diabetes mellitus without complications Status: Acute Assessment and Plan: A1c 5.3. The patient's blood glucose was reviewed on 11/15 Glucose remains well controlled. Continue AccuCheks covering with sliding scale. Hypoglycemia protocol available as needed. Holding Januvia. Continue to monitor (6) Congestive heart failure: Qualifiers: Heart failure type: diastolic Heart failure chronicity: chronic Qualified Code(s): I50.32 - Chronic diastolic (congestive) heart failure Code(s): I50.9 - Heart failure, unspecified Status: Chronic Assessment and Plan: Echo Jan 2022 with EF 45-50% and indeterminate diastolic function. Stable. Clinically euvolemic. Continue to monitor (7) Colon cancer: Code(s): C18.9 - Malignant neoplasm of colon, unspecified Status: Chronic Assessment and Plan: Patient with metastatic adenocarcinoma stage IV colon cancer. Current treatment is irinotecan and Avastin biweekly that December 2020. CT A/P here showing hepatic masses and lung nodules that have increased since July 2021. Probably the etiology of the elevated AlkPhos. Also with cirrhosis. Patient to follow u
[2022-11-15 12:06] LABS: Glucose Point of Care 121 mg/dl (65-105)
[2022-11-15 16:57] LABS: Glucose Point of Care 80 mg/dl (65-105)
[2022-11-15 21:53] LABS: Glucose Point of Care 168 mg/dl (65-105)
[2022-11-16] VITALS (7 sets, daily range): BP systolic 105–134; BP diastolic 68–76; PULSE 74–123; RESP 15–20; TEMP 36.6–37.1; O2SAT 95–100
[2022-11-16] MEDS: CENTRAL LINE FLUSH 10 ML IV PUSH ×2 (05:18→13:40)
[2022-11-16 07:33] LABS: Glucose Point of Care 82 mg/dl (65-105)
[2022-11-16] MEDS: dilTIAZem HCL CD 240 MG CAP.24HR PO (08:02)
[2022-11-16] MEDS: METOPROLOL SUCCINATE EXT REL 100 MG TABCR PO (08:02)
[2022-11-16] MEDS: TAMSULOSIN HCL 0.4 MG CAPSULE PO (08:02)
[2022-11-16] MEDS: ENOXAPARIN 40 MG/0.4 ML SYRINGE SUB-Q (08:07)
[2022-11-16] MEDS: FINASTERIDE 5 MG TABLET PO (08:07)
[2022-11-16] MEDS: FERROUS SULFATE 325 MG TABLET DR BY MOUTH ×2 (08:07→19:59)
[2022-11-16] MEDS: CYANOCOBALAMIN 500 MCG TABLET PO (08:07)
[2022-11-16] MEDS: MULTIVITAMINS THERAPEUTIC TAB (*BKC) 1 TABLET PO (08:07)
[2022-11-16] MEDS: SIMVASTATIN 10 MG TABLET PO (08:07)
[2022-11-16] MEDS: TRIAMCINOLONE ACET 0.1% CREAM 15 GM TUBE 1 APPLIC TOPICAL (08:08)
[2022-11-16] MEDS: SILVERGEL (ELTA) 45 ML 1 APPLIC TOPICAL (08:08)
[2022-11-16] MEDS: FLUTICASONE PROPIONATE 0.05% NA SPR 16 GM BTL (*BKC) 2 SPRAY NASAL (08:08)
--- NOTE | 2022-11-16 11:29 | PCNWS ---
Weekly nutritional screen. Patient is tolerating current Heart healthy diet with adequate intake at 75-100% of meals. No weight loss reported. No nutritional needs at this time.
[2022-11-16 11:39] LABS: Glucose Point of Care 168 mg/dl (65-105)
[2022-11-16] MEDS: levoFLOXacin 750 MG TABLET PO (11:50)
[2022-11-16] MEDS: DIGOXIN INJ 250 MCG/ML 2 ML AMP (*BKC) IV PUSH (12:32)
[2022-11-16] MEDS: WATER, STERILE FOR INJECTION 10 ML VIAL XX (12:48)
--- NOTE | 2022-11-16 15:44 | PM.DS ---
DS: Admitting Diagnosis Discharge Date 11/16/22 Admitting Diagnosis Confusion DS: Discharge Diagnosis Discharge Diagnosis (1) Atrial fibrillation with rapid ventricular response: Code(s): I48.91 - Unspecified atrial fibrillation Status: Acute (2) Septic shock: Code(s): A41.9 - Sepsis, unspecified organism; R65.21 - Severe sepsis with septic shock Status: Acute (3) Acute kidney injury: Code(s): N17.9 - Acute kidney failure, unspecified Status: Acute (4) Acute UTI: Code(s): N39.0 - Urinary tract infection, site not specified Status: Acute (5) Type 2 diabetes mellitus: Qualifiers: Diabetes mellitus complication status: without complication 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 insulin use: without usp use Qualified Code(s): E11.9 - Type 2 diabetes mellitus without complications Code(s): E11.9 - Type 2 diabetes mellitus without complications Status: Acute (6) Congestive heart failure: Qualifiers: Heart failure chronicity: chronic Heart failure type: diastolic Qualified Code(s): I50.32 - Chronic diastolic (congestive) heart failure Code(s): I50.9 - Heart failure, unspecified Status: Chronic (7) Colon cancer: Code(s): C18.9 - Malignant neoplasm of colon, unspecified Status: Chronic DS: Summary Hospital Course Reason for hospitalization: 71yo male with AFib, CHF chronic anemia hypertension diabetes mellitus and learning disability here for confusion. Please see H&P for details. Hospital Course: Patient presents with confusion and found to have septic shock. Patient met severe sepsis criteria with decreased blood pressure, leukocytosis, tachycardia and AGUILAR with creatinine 2.6.? WBC 17.5K. He was started on broad spectrum of abx. Source of sepsis is UTI with bacteremia. Patient received 30 cc/kg IV fluids in the ED. Also with metabolic acidosis despite normal lactic felt related to AGUILAR. UCx 8/28 growing Klebsiella oxytoca sensitive to meropenem. BCx 8/28 growing Klebsiella oxytoca sensitive to meropenem from aerobic bottle (other set negative). No fevers. WBC normal now. Clinically improved. Changed to oral Levaquin to complete a course. Patient has chronic AFib and noted to be atrial fibrillation with rapid ventricular response upon admission.? He is not on anticoagulation in the past due to hematuria (per notes in the chart). Patient treated with Diltiazem drip. He was transitioned to oral diltiazem 60mg Q6h then back to home Cardizem CD 240mg. BP was soft but he tolerated this.?Heart rate higher so low dose metoprolol added and advanced. Able to get him back to his home dose of metoprolol. Despite this, his heart rate still poorly controlled and BP soft so Digoxin added. Patient also has acute kidney injury. Baseline Cr around 1.2. ?BUN of 65 and creatinine 2.6 on admission. Fluid bolus given on admission. CT scan showing persistent bilateral hydroureteronephrosis extending to bladder. Noted since April. Cr improved to 1.0. Metabolic acidosis felt related to the AGUILAR treated with oral bicarb; serum bicarb normalized and oral bicarb stopped. Urology consulted and Chua placed. Plan to keep Chua for 7-10 days with plans to do voiding trial in the urology office. Tamsulosin started. Continue Finasteride. Repeat Renal US showing resolution of hydronephrosis. Patient with metastatic adenocarcinoma stage IV colon cancer. Current treatment is irinotecan and Avastin biweekly that began December 2020. CT A/P here showing hepatic masses and lung nodules that have increased since July 2021. Probably the etiology of the elevated AlkPhos. Also with cirrhosis. Patient to follow up with Oncology after discharge. He overall did well and was able to be discharged on 11/16/22. Status at Discharge Cognitive/behavioral status at discharge: stable Time Spent with Patient Time attestation: Total time spent providing and/or coordinating dischar
[2022-11-16 17:31] LABS: Glucose Point of Care 123 mg/dl (65-105)
[2022-11-16 17:45] LABS: SARS-CoV-2 RNA PCR Negative (Negative)
[2022-11-16 20:18] LABS: Glucose Point of Care 143 mg/dl (65-105)
== END 2022-11-16 21:51 | DRG 871 ==
LOC: ANHED 12:30 → ANHIMU 12:51 → ANH3MEDSUR 11-12 10:38
PROVIDERS: Nurse Practitioner; Admitting Provider Internal Medicine; Emergency Provider Emergency Medicine; PCP Family Medicine; Visit Provider Internal Medicine
DX: A41.89 Other specified sepsis (principal); R65.21 Severe sepsis with septic shock; I48.20 Chronic atrial fibrillation, unspecified; C18.9 Malignant neoplasm of colon, unspecified; N39.0 Urinary tract infection, site not specified; N17.9 Acute kidney failure, unspecified; I50.32 Chronic diastolic (congestive) heart failure; C79.9 Secondary malignant neoplasm of unspecified site; N13.30 Unspecified hydronephrosis; E87.20 Acidosis, unspecified; B96.1 Klebsiella pneumoniae [K. pneumoniae] as the cause of diseases classified elsewhere; D64.9 Anemia, unspecified; E11.51 Type 2 diabetes mellitus with diabetic peripheral angiopathy without gangrene; E11.42 Type 2 diabetes mellitus with diabetic polyneuropathy; E78.2 Mixed hyperlipidemia; F81.9 Developmental disorder of scholastic skills, unspecified; I11.0 Hypertensive heart disease with heart failure; I48.91 Unspecified atrial fibrillation; I45.10 Unspecified right bundle-branch block; K74.60 Unspecified cirrhosis of liver; M10.9 Gout, unspecified; R16.0 Hepatomegaly, not elsewhere classified; R91.8 Other nonspecific abnormal finding of lung field; R33.9 Retention of urine, unspecified; Z20.822 Contact with and (suspected) exposure to COVID-19; Z89.422 Acquired absence of other left toe(s); Z93.3 Colostomy status
CPT/HCPCS: 36415; 70450; 71045; 74176; 76775; 80048; 80053; 80069; 81001; 82948; 83036; 83605; 83735; 84100; 85025; 85610; 85730; 86140; 87040; 87077; 87086; 87088; 87186; 87635; 92610; 93005; 96365; 97110; 97116; 97161; 97165; 97530; 97535; 99213; 99285; A9270; G0463; J0696; J1160; J1335; J1642; J1650; J2020; J3475; J7030; P9047

== ENCOUNTER 2023-01-21 09:46 | Outpatient (CLI) | payer MEDICARE, MEDICAID, SELFPAY ==
--- NOTE | ~2023-01-21 | CT_ITS ---
Clinical Indication: Colon cancer CT Scan of the Chest, Abdomen, and Pelvis with Contrast: Technique: Contiguous sections were acquired throughout the chest, abdomen, and pelvis after intraven ous administration of 100 cc of Omnipaque 350. Dose reduction technique was used on this scan by uti lizing automated exposure control and iterative reconstruction technique. The dose-length product (DL P) was 1574.40 mGy-cm. COMPARISON: 11/08/2022 Findings: Mildly enlarged right peritracheal/precarinal lymph nodes measure up to 1.3 cm in short axis. No axil jenny lymphadenopathy. No aortic aneurysm or dissection. No large central pulmonary embolus evident. P robable mild cardiomegaly. No pericardial effusion. Minimal right pleural effusion present. No left pleural effusion. There are innumerable pulmonary nodules, with a dominant 3.5 cm left lower lobe pulmonary nodule, con sistent with neoplastic/metastatic disease. Findings are worsened from prior exam, at which time the aforementioned left lower lobe pulmonary nodule measured 1.9 cm in diameter. Dominant, hypodense hepatic mass or complex masses in the central liver is increased in extent from p rior exam. Additional subtle scattered hypodense hepatic lesions are consistent with additional metas tatic disease. Nodular contour of liver could reflect underlying cirrhosis. The pancreas and adrenal glands are within normal limits. Bilateral renal cysts are present. Calcified gallstones are present. Stable cystic splenic lesion. There are atherosclerotic calcifications of the aorta. No bowel obstruction or bowel wall thickening. There is no evidence to suggest acute appendicitis. Urinary bladder is unremarkable. Enlarged left inguinal lymph node measures 1.7 cm in short axis, sim ilar to prior exam. There are multiple enlarged pelvic sidewall/iliac chain lymph nodes, which are in creased in size from prior exam. There is diffuse urinary bladder wall thickening, which is collapsed otherwise relatively catheter. Prostate gland mildly enlarged. Impression: Extensive pulmonary metastatic disease, worsened from prior exam. Dominant left lower lobe pulmonary nodule is increased in size to 3.5 cm (previously 1.9 cm). Interval progression of hepatic neoplastic/metastatic disease. Diagnostic considerations include both metastatic carcinoma and metastatic disease given evidence of underlying cirrhosis. Worsening pelvic lymphadenopathy, consistent with metastatic disease. There are also small metastatic left inguinal and mediastinal lymph nodes. Minimal right pleural effusion. Cholelithiasis. Diffuse urinary bladder wall thickening. Correlate for cystitis. Reviewed, dictated and finalized at location M. 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 Dominant left lower lobe pulmonary nodule is increased in size to 3.5 cm (previously 1.9 cm) . Interval progression of hepatic neoplastic/metastatic disease. Diagnostic consi derations include both metastatic carcinoma and metastatic disease given eviden ce of underlying cirrhosis. Worsening pelvic lymphadenopathy, consistent with metastatic disease. There are also small metastatic left inguinal and mediastinal lymph nodes. Minimal right pleural effusion. Cholelithiasis. Diffuse urinary bladder wall thickening. Correlate for cystitis.
== END 2023-01-21 09:47 | disposition home or self-care (01) ==
PROVIDERS: PCP Family Medicine; Visit Provider Internal Medicine Hematology & Oncology
DX: C18.8 Malignant neoplasm of overlapping sites of colon (principal); C78.02 Secondary malignant neoplasm of left lung; R59.0 Localized enlarged lymph nodes; J90 Pleural effusion, not elsewhere classified; K80.20 Calculus of gallbladder without cholecystitis without obstruction; R93.41 Abnormal radiologic findings on diagnostic imaging of renal pelvis, ureter, or bladder
CPT/HCPCS: 71260; 74177; Q9967

== ENCOUNTER 2023-03-07 20:51 | Inpatient (IN) | payer MEDICARE, MEDICAID, SELFPAY ==
--- NOTE | ~2023-03-07 | US_ITS ---
EXAMINATION:US venous doppler LE BI INDICATION:Swelling of the lower extremities TECHNIQUE: Multiple grayscale, color flow and Doppler images of the right and left lower extremity de ep venous systems were obtained and reviewed. COMPARISON:03/03/2022 FINDINGS: The common femoral, superficial femoral and popliteal veins demonstrate normal respiratory variation, augmentation and compressibility. Color flow is also seen within the posterior tibial, pe roneal, greater saphenous and profunda veins. IMPRESSION: 1: No lower extremity deep venous thrombosis. Reviewed, dictated and finalized at location B. LE INSTALLER
--- NOTE | ~2023-03-07 | CT_ITS ---
EXAMINATION: CT abdomen pelvis wo con DATE: 03/07/2023 22:16 INDICATION: Abdominal distention. TECHNIQUE: Computed tomography (CT) of the abdomen and pelvis was performed without intravenous contr ast. Automated exposure control and iterative reconstruction technique were employed. The dose-length product was 1349.07 mGy-cm. COMPARISON: CT abdomen and pelvis 01/21/2023 FINDINGS: The visualized portions of the lung bases demonstrate numerous nodules and a 3.7 cm left lo wer lobe mass, consistent with metastatic disease. There are trace pleural effusions. Calcified left hilar lymph nodes are consistent with old granulomatous disease. Cardiomegaly is noted. There are cor onary artery calcifications. No pericardial effusion. The liver demonstrates surface nodularity, cons istent with cirrhosis. There is a ill-defined mass in the liver measuring approximately 7 cm. Calcifi cations in the liver and spleen are consistent with old granulomatous disease. There is a 2.1 cm cyst in the spleen. There are gallstones in the gallbladder, which is normal in size. The pancreas and ad renal glands are normal. There are cysts in the kidneys measuring up to 5.9 cm on the right. There is a left inguinal hernia containing fat. Prominent fat in right inguinal canal may be a hernia. There is a Chua catheter in expected position. There is an anastomosis in the rectosigmoid. There are no d ilated loops of bowel. The appendix is not visualized. There is calcified atherosclerosis of the aort a and many of the other arteries. There are enlarged bilateral external iliac lymph nodes. There is n o free intraperitoneal fluid. There is severe lumbar spondylosis. There is moderate thoracic spondylo sis. IMPRESSION: 1. Pulmonary nodules, left lung lower lobe mass, liver mass, and pelvic lymphadenopathy, stable from 01/21/23, consistent with metastatic disease. 2. Cirrhosis of the liver. Reviewed, dictated and finalized at location E. PICKER IMPRESSION: 1. Pulmonary nodules, left lung lower lobe mass, liver mass, and pelvic lymphad enopathy, stable from 01/21/23, consistent with metastatic disease. 2. Cirrhosis of the liver.
--- NOTE | ~2023-03-07 | US_ITS ---
EXAMINATION: US renal BI DATE: 03/09/2023 15:01 INDICATION: elevated creatinine TECHNIQUE: Multiple grayscale and Doppler ultrasound images of the kidneys were obtained. COMPARISON: 11/14/2022; CT abdomen pelvis 03/07/2023 FINDINGS: The right kidney measures 12.0 x 6.2 x 6.7 cm. The left kidney measures 12.8 x 6.8 x 6.5 cm. The kidn eys demonstrate normal parenchymal echogenicity. Bilateral simple renal cysts measuring up to 6.7 cm on the right and up to 4.9 cm on the left. There is no hydronephrosis. The bladder is mostly decompre ssed by Chua catheter, with a 69 mL residual volume. IMPRESSION: Bilateral large simple renal cysts. Chua catheter in the urinary bladder with residual volume of 69 mL. Reviewed, dictated and finalized at location K. ER SONAR TECHNICIAN
--- NOTE | ~2023-03-07 | XR_ITS ---
XR chest 1V portable 03/07/2023 21:11 Indication: Generalized weakness. Recent Covid infection. Procedure: AP portable chest Comparison: Comparison to multiple prior studies sequentially, with oldest reviewed study dated 02/12. Findings: Portacatheter tip in the SVC. Cardiomegaly. Interval development of extensive bilateral air space disease, compatible with pneumonia or edema. No acute osseous abnormality. Impression: 1: Diffuse bilateral airspace disease may represent pneumonia or edema. Reviewed, dictated and finalized at location A. H FINISHER Impression: 1: Diffuse bilateral airspace disease may represent pneumonia or edema.
--- NOTE | 2023-03-07 20:47 | ED.WEAKNESS ---
HPI - Weakness General Chief complaint: Weakness Stated complaint: weakness Source: patient, EMS and other (senior living documentation) Mode of arrival: EMS Limitations: no limitations and clinical condition History of Present Illness HPI Narrative: 72 yo with history colon cancer s/p resection presents with report of weakness. He was diagnosed with covid 3 weeks ago. Report of occasional epistaxis over the past week. EMS states senior living said his Chua had decreased output that was black recently so it was changed Tuesday. Reported that patient has been refusing to eat but at baseline is A&Ox4. Denies pain, nausea, appetite. Patient states he has been having night sweats. Unknown if weight loss. Denies headache, chest pain, abdominal pain, extremity pain, or shortness of breath. Denies unilateral weakness, only generalized. Related Data Home Medications Medication Instructions Recorded Confirmed fluticasone propionate 50 2 spray intranasal DAILY 02/05/19 03/08/23 mcg/actuation nasal spray,suspension (Allergy Relief (fluticasone)) cyanocobalamin (vitamin B-12) 500 mcg PO DAILY 12/10/19 03/08/23 1,000 mcg tablet (Vitamin B-12) ferrous sulfate 325 mg (65 mg 325 mg PO TID 12/10/19 03/08/23 iron) tablet diltiazem HCl 240 mg capsule,24 240 mg PO DAILY 06/03/20 03/08/23 hr,extended release multivitamin 1 tablet PO DAILY 10/08/20 03/08/23 simvastatin 10 mg tablet 10 mg PO HS 03/06/22 03/08/23 loratadine 10 mg tablet (Claritin) 10 mg PO DAILY PRN Allergies 10/20/22 03/08/23 potassium chloride 20 mEq 20 meq PO BID 10/20/22 03/08/23 tablet,extended release(part/cryst) (Klor-Con M) Lactobacillus acidophilus 2,000 mmu cells PO BID 03/08/23 03/08/23 clindamycin HCl 150 mg capsule 150 mg PO TID 03/08/23 03/08/23 clindamycin HCl 300 mg capsule 300 mg PO TID 03/08/23 03/08/23 collagenase clostridium histo. 250 1 applic topical .DAILY AND PRN 03/08/23 03/08/23 unit/gram topical ointment (Santyl) digoxin 250 mcg (0.25 mg) tablet 250 mcg PO DAILY 03/08/23 03/08/23 famotidine 20 mg tablet 20 mg PO DAILY 03/08/23 03/08/23 furosemide 40 mg tablet 40 mg PO BID 03/08/23 03/08/23 ipratropium 0.5 mg-albuterol 3 mg 3 ml inhalation Q6H PRN Shortness 03/08/23 03/08/23 (2.5 mg base)/3 mL nebulization Of Breath Or Wheezing soln mupirocin 2 % topical ointment 1 applic topical .DAILY AND PRN 03/08/23 03/08/23 triamcinolone acetonide 0.1 % 1 applic topical TID 03/08/23 03/08/23 topical cream Allergies Allergy/AdvReac Type Severity Reaction Status Date / Time vancomycin Allergy Rash Verified 03/08/23 06:18 [facility] Past Medical History Medical History (Updated 03/08/23 @ 09:25 by Clover Johnson MD) 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 Stage IV Atrial fibrillation B12 deficiency BPH with obstruction/lower urinary tract symptoms Chronic anemia Colon cancer Receiving chemotherapy treatment. Congestive heart failure Echocardiogram in January 2020 showed mildly enlarged left ventricle with mild reduction left ventricular function with an EF of 45 to 50% as well as significant biatrial dilatation and small amounts of atrial, mitral, and tricuspid regurgitation. Diabetic peripheral neuropathy Essential hypertension Gout Incomplete right bundle branch block Learning disability [facility] current use of anticoagulant On warfarin for stroke prophylaxis due to atrial fibrillation. Mixed hyperlipidemia Neuropathy Osteomyelitis Status post amputation of left 2nd toe. Peripheral vascular disease Systolic heart failure Thrombocytopenia Toe osteomyelitis, left Status post amputation of the toe Type 2 diabetes mellitus Surgical History Surgical History (Updated 03/08/23 @ 04:29 by Kaylene López DO) History of amputation of lesser toe of left foot Treatment of osteomyelitis in 10/2013 & 01/2015. He mutation the left 2nd toe History of foot surgery 10/2022,
[2023-03-07 20:51] VITALS: BP 107/59; PULSE 77; RESP 20; TEMP 36.4; O2SAT 100
--- NOTE | 2023-03-07 20:58 | ECG_ITS ---
Measurements Intervals [place] Rate: 65 P: NM: 0 QRS: -44 QRSD: 120 T: 126 QT: 367 QTc: 382 Interpretive Statements ATRIAL FIBRILLATION MARKED LEFT AXIS DEVIATION [QRS AXIS < -30] LEFT BUNDLE BRANCH BLOCK [120+ ms QRS DURATION, 80+ ms Q/S IN V1/V2, 85+ ms R IN I/aVL/V5/V6] COMPARED TO ECG 11/08/2022 09:58:24 LEFT BUNDLE-BRANCH BLOCK NOW PRESENT Electronically Signed On 03-08-2023 15:55:47 SHIRT OPERATOR by Jose Angel Torres M.D.
[2023-03-07] MEDS: LACTATED RINGERS 1,000 ML 999 ML IV CONT (21:26)
[2023-03-07 21:29] LABS: Basophils Absolute Auto 0.1 K/mm3 (0.0-0.1); Basophils Percent Auto 0.8 % (0.2-1.2); Eosinophils Absolute Auto 0.6 K/mm3 (0-0.3); Eosinophils Percent Auto 4.6 % (0-4.4); Hematocrit 26.5 % (42.0-52.0); Hemoglobin 8.1 g/dL (14.0-18.0); Immature Granulocyte Percent A 0.8 % (0-0.5); Lymphocytes Percent Auto 12.1 % (18.3-44.2); Mean Corpuscular HGB Conc 30.6 g/dl (32-36); Mean Corpuscular Hemoglobin 27.8 pg (26-34); Mean Corpuscular Volume 91.1 fl (80-100); Mean Platelet Volume 10.6 fl (7.4-10.4); Monocytes Absolute Auto 0.9 K/mm3 (0.1-0.6); Monocytes Percent Auto 6.8 % (2.6-8.5); Neutrophils Absolute Auto 9.9 K/mm3 (1.3-6.7); Neutrophils Percent Auto 74.9 % (45.5-73.1); Platelet Count Result 231 k/mm3 (150-375); Red Blood Count 2.91 M/mm3 (4.6-6.20); White Blood Count 13.2 K/mm3 (4.5-10.0)
[2023-03-07 21:37] VITALS: BP 119/46; PULSE 72; RESP 22
[2023-03-07 21:43] LABS: Magnesium 2.6 mg/dL (1.6-2.3)
[2023-03-07 21:44] LABS: Bacteria Urine 1+ /hpf; RBC Urine >100 /hpf (0-2); Squamous Epithelial Cell Urine Occasional /hpf (Few); WBC Urine >100 /hpf
[2023-03-07 21:45] LABS: Appearance Urine Turbid (Clear); Blood Urine 3+ (Negative); Glucose Urine UA Negative (Negative); Ketones Urine Negative (Negative); Leukocyte Esterase Ur 3+ LEU/UL (Negative); Nitrate Urine Negative (Negative); Protein Urine 2+ mg/dL (Negative); Specific Grav Ur 1.013 (1.001-1.035)
[2023-03-07 21:47] LABS: Color Urine Red (Yellow)
[2023-03-07 21:48] LABS: Add Urine Microscopic? YES
[2023-03-07 21:53] LABS: Alanine Aminotransferase 25 U/L (6-50); Albumin Level 2.9 g/dL (3.5-5.1); Alkaline Phosphatase 1369 U/L (38-126); Anion Gap 10 mmol/L (8-16); Aspartate Amino Transferase 63 U/L (17-59); Bilirubin,Total 1.3 mg/dL (0.2-1.3); Blood Urea Nitrogen 92 mg/dL (9-20); Carbon Dioxide 17 mmol/L (22-30); Chloride 109 mmol/L (98-107); Creatine Kinase 92 U/L (55-170); Estimated CRCL calculation 27 ml/min; Estimated Glomerular Filt Rate 26; Glucose 101 mg/dL (65-110); Lipase 52 U/L (23-300); Potassium 6.9 mmol/L (3.4-5.0); Sodium 136 mmol/L (137-145)
[2023-03-07 21:55] LABS: NT Pro B Type Natriuretic Pept 9510 pg/mL (19.9-100); Troponin I < 0.012 ng/mL (0.000-0.034)
[2023-03-07 22:05] LABS: Influenza A QL RT-PCR Negative (Negative); Influenza B QL RT-PCR Negative (Negative); RSV RNA, RT-PCR Negative (Negative); SARS-CoV-2 RNA PCR Negative (Negative)
[2023-03-07] MEDS: DEXTROSE 50% 25 GM/50 ML SYRINGE IV PUSH ×2 (22:18→23:41)
[2023-03-07] MEDS: CALCIUM GLUCONATE 1,000 MG/10 ML VIAL 1000 MG IV PUSH (22:18)
[2023-03-07] MEDS: INSULIN HUMAN REGULAR (*BKC) 100 UNITS/ML 10 UNITS IV PUSH ×2 (22:20→23:42)
[2023-03-07 22:24] LABS: Glucose Point of Care 93 mg/dl (65-105)
--- NOTE | 2023-03-07 23:11 | PC.NURSE ---
This RN assumed care of patient. This RN took patient report from GLYNN Conklin.
[2023-03-07 23:19] LABS: INR 1.3; Prothrombin Time 16.8 Seconds (11.1-14.7)
[2023-03-07 23:20] LABS: Anion Gap 9 mmol/L (8-16); Blood Urea Nitrogen 86 mg/dL (9-20); Calcium 9.1 mg/dL (8.4-10.2); Carbon Dioxide 18 mmol/L (22-30); Chloride 111 mmol/L (98-107); Estimated CRCL calculation 27 ml/min; Estimated Glomerular Filt Rate 26; Glucose 97 mg/dL (65-110); Partial Thromboplastin Time 43.5 SECONDS (22.3-36.8); Sodium 138 mmol/L (137-145)
[2023-03-07 23:36] LABS: Lactic Acid Reflex 2.1 mmol/L (0.7-2.0)
[2023-03-07] MEDS: SODIUM POLYSTYRENE SULFONONATE 15 GM/60 ML BTL 30 GM PO (23:41)
[2023-03-07 23:53] VITALS: BP 113/41; PULSE 67; RESP 24; O2SAT 99
[2023-03-07 23:58] LABS: Free T4 Free Thyroxine 1.65 ng/mL (0.78-2.19)
[2023-03-08] VITALS (18 sets, daily range): BP systolic 97–129; BP diastolic 44–69; PULSE 52–83; RESP 16–24; TEMP 36.2–37.1; O2SAT 91–100; BMI 29.0
[2023-03-08] MEDS: SODIUM BICARBONATE 8.4% 50 MEQ/50 ML SYRINGE IV PUSH ×2 (01:13→05:11)
[2023-03-08] MEDS: CALCIUM GLUCONATE 1,000 MG/10 ML VIAL 1000 MG IV PUSH ×2 (01:13→05:09)
--- NOTE | 2023-03-08 01:21 | PM.IMHP ---
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 Source of information is mostly from past medical records, ER report and nursing report. The patient is only alert oriented to person and place and month but is confused as to the year and recent events. Patient's speech is hesitant/stuttering and difficult to understand the patient reportedly recover from COVID 3 weeks ago. He is however required new oxygen requirement since he (3 days ago). Since he was started on oxygen the patient has been picking at his nose and sucking on his fingers. On arrival to the hospital patient is noted to have dried blood in his mouth in posterior oropharynx. He reports that he has not been eating. He denies any abdominal pain or any reasons for not eating. He denies feeling short of breath or localized pain. Patient had a Chua catheter in place on arrival to the ER. ER exchange the patient's catheter on arrival to the hospital. The patient was afebrile in the ER. Patient has a known history of AFib in within AFib on arrival to the ER but his rate is controlled. Blood pressures have been stable since presentation to the hospital. He has remained on room air satting 100%. In the ER was noted to be notably dehydrated and labs demonstrated acute kidney injury with acute hyperkalemia. Patient received calcium, bicarb and insulin initially. Repeat electrolyte panel demonstrate potassium went from 6.7 down to 6. Patient then received another dose of calcium, bicarb and Kayexalate. The patient has had numerous bowel movements since Kayexalate administration. Review of Systems Review of Systems: 12 systems were reviewed with pertinent positives and negatives per HPI. Except as documented in the HPI, all other systems were reviewed and are negative. [facility] Past Medical History Medical History (Updated 03/08/23 @ 04:28 by Kaylene López DO) 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 Stage IV Atrial fibrillation B12 deficiency BPH with obstruction/lower urinary tract symptoms Chronic anemia Colon cancer Receiving chemotherapy treatment. Congestive heart failure Echocardiogram in January 2020 showed mildly enlarged left ventricle with mild reduction left ventricular function with an EF of 45 to 50% as well as significant biatrial dilatation and small amounts of atrial, mitral, and tricuspid regurgitation. Diabetic peripheral neuropathy Essential hypertension Gout Incomplete right bundle branch block Learning disability FDC current use of anticoagulant On warfarin for stroke prophylaxis due to atrial fibrillation. Mixed hyperlipidemia Neuropathy Osteomyelitis Status post amputation of left 2nd toe. Peripheral vascular disease Systolic heart failure Thrombocytopenia Toe osteomyelitis, left Status post amputation of the toe Type 2 diabetes mellitus Surgical History Surgical History (Updated 03/08/23 @ 04:29 by Kaylene López, ) History of amputation of lesser toe of left foot Treatment of osteomyelitis in 10/2013 & 01/2015. He mutation the left 2nd toe History of foot surgery 10/2022, right toe amputation the right 3rd toe History of partial colectomy (~07/2017) Hand assisted laparoscopic low anterior resection with colorectal anastomosis for treatment of colon cancer. History of removal of pigmented skin lesion History of skin graft To poorly healing wound of the lower extremity. Port-A-Cath in place Family History Family History (Reviewed 03/08/23 @ 01:24 b
[2023-03-08 02:07] LABS: Reflex Lactic Acid Yes or No Add Lactic
[2023-03-08] MEDS: SODIUM CHLORIDE 0.9% IV 1,000 ML 150 ML IV CONT ×2 (02:30→09:21)
[2023-03-08 02:54] LABS: Lactic Acid 1.5 mmol/L (0.7-2.0)
[2023-03-08 04:06] LABS: Basophils Absolute Auto 0.1 K/mm3 (0.0-0.1); Basophils Percent Auto 0.6 % (0.2-1.2); Eosinophils Absolute Auto 0.3 K/mm3 (0-0.3); Eosinophils Percent Auto 2.3 % (0-4.4); Hematocrit 27.6 % (42.0-52.0); Hemoglobin 8.4 g/dL (14.0-18.0); Immature Granulocyte Absolute 0.09 K/mm3 (0.00-0.031); Immature Granulocyte Percent A 0.7 % (0-0.5); Lymphocytes Absolute Auto 0.86 K/mm3 (0.9-3.2); Lymphocytes Percent Auto 6.6 % (18.3-44.2); Mean Corpuscular HGB Conc 30.4 g/dl (32-36); Mean Platelet Volume 10.5 fl (7.4-10.4); Monocytes Absolute Auto 0.8 K/mm3 (0.1-0.6); Monocytes Percent Auto 6.3 % (2.6-8.5); Neutrophils Absolute Auto 10.8 K/mm3 (1.3-6.7); Neutrophils Percent Auto 83.5 % (45.5-73.1); Platelet Count Result 216 k/mm3 (150-375); Red Cell Distribution Width 19.1 % (11.5-14.5); White Blood Count 12.9 K/mm3 (4.5-10.0)
[2023-03-08 04:18] LABS: Alanine Aminotransferase 24 U/L (6-50); Alkaline Phosphatase 1351 U/L (38-126); Anion Gap 8 mmol/L (8-16); Aspartate Amino Transferase 63 U/L (17-59); Bilirubin,Total 1.4 mg/dL (0.2-1.3); Blood Urea Nitrogen 86 mg/dL (9-20); Calcium 9.5 mg/dL (8.4-10.2); Carbon Dioxide 22 mmol/L (22-30); Chloride 110 mmol/L (98-107); Estimated CRCL calculation 28 ml/min; Estimated Glomerular Filt Rate 27; Glucose 68 mg/dL (65-110); Phosphorus 4.7 mg/dL (2.5-4.5); Potassium 6.1 mmol/L (3.4-5.0); Sodium 140 mmol/L (137-145)
[2023-03-08 04:34] LABS: Glucose Point of Care 71 mg/dl (65-105)
[2023-03-08] MEDS: INSULIN HUMAN REGULAR (*BKC) 100 UNITS/ML IV PUSH (05:16)
[2023-03-08] MEDS: DEXTROSE 50% 25 GM/50 ML SYRINGE IV PUSH (05:16)
[2023-03-08 06:12] LABS: Glucose Point of Care 72 mg/dl (65-105)
--- NOTE | 2023-03-08 06:15 | ADMGEN ---
This patient, Donaldo Booker, was admitted to IMU Room 201-01 on 03/08/23 at 0202. Patient/family oriented to hospital policies and general routines including ID bracelet, bed and alarms, visiting hours, pain management, procedures, bathroom and other care routines, personal items, smoking policy, room service/diet, and visiting hours. Information on how to activate the Rapid Response Team has been discussed. Patient/Family are encouraged to report perceived risks to care and to ask questions if they do not understand what they are told or what they should do.
[2023-03-08 06:42] LABS: Anion Gap 8 mmol/L (8-16); Blood Urea Nitrogen 83 mg/dL (9-20); Calcium 9.3 mg/dL (8.4-10.2); Carbon Dioxide 19 mmol/L (22-30); Chloride 113 mmol/L (98-107); Estimated CRCL calculation 28 ml/min; Estimated Glomerular Filt Rate 28; Glucose 73 mg/dL (65-110); Potassium 5.5 mmol/L (3.4-5.0); Sodium 140 mmol/L (137-145)
[2023-03-08 06:43] LABS: Creatine Kinase 81 U/L (55-170)
[2023-03-08 08:00] LABS: Glucose Point of Care 72 mg/dl (65-105)
--- NOTE | 2023-03-08 08:29 | PM.PNNEP ---
Progress Note: A&P Assessment and Plan (1) Acute kidney injury: Code(s): N17.9 - Acute kidney failure, unspecified Status: Acute Assessment and Plan: the patient has acute kidney injury. This is on top of normal kidney function. Creatinine was 1.3 in early January. The patient looks dehydrated . He also has cellulitis which may contribute to renal failure as well. Other possibilities such as obstruction or rhabdomyolysis could be happening. Will see what the renal ultrasound and CK show. Other possibilities such as interstitial nephritis or glomerulonephritis are possible but less likely in this clinical scenario. At this point will continue IV fluids. He is getting saline at 150 an hour. I am going to reduce this to 100 an hour. I will check urine electrolytes and a renal sonogram plus CK. (2) Hyperkalemia: Code(s): E87.5 - Hyperkalemia Status: Acute Assessment and Plan: The patient's potassium is still 5.5. Will give another dose of Lokelma. (3) Type 2 diabetes mellitus with other circulatory complications: Code(s): E11.59 - Type 2 diabetes mellitus with other circulatory complications Status: Chronic Assessment and Plan: On Accu-Cheks and sliding scale insulin per hospitalist. (4) Colon cancer: Code(s): C18.9 - Malignant neoplasm of colon, unspecified Status: Chronic Assessment and Plan: He is getting chemotherapy per Dr. Jessy denton (5) Cellulitis, leg: Code(s): L03.119 - Cellulitis of unspecified part of limb Status: Acute Assessment and Plan: he is on ceftriaxone. will check blood cultures. (6) Atrial fibrillation: Qualifiers: Atrial fibrillation type: unspecified chronic Qualified Code(s): I48.20 - Chronic atrial fibrillation, unspecified Code(s): I48.91 - Unspecified atrial fibrillation Status: Chronic Assessment and Plan: Heart rate doing okay (7) Congestive heart failure: Qualifiers: Heart failure type: diastolic Heart failure chronicity: chronic Qualified Code(s): I50.32 - Chronic diastolic (congestive) heart failure Code(s): I50.9 - Heart failure, unspecified Status: Chronic Assessment and Plan: he is a bit dry right now. (8) Essential hypertension: Code(s): I10 - Essential (primary) hypertension Status: Acute (9) Chronic anemia: Code(s): D64.9 - Anemia, unspecified Status: Acute Assessment and Plan: hemoglobin 8.4. If kidneys do not recover soon will plan on Epogen. (10) UTI (urinary tract infection): Code(s): N39.0 - Urinary tract infection, site not specified Status: Acute Assessment and Plan: Cultures pending. He is on ceftriaxone Subjective Date/time seen: 03/08/23 08:29 Interval history: Donaldo is a very pleasant 72-year-old gentleman who has multiple medical problems include atrial fibrillation, congestive heart failure with an EF of 45-50%, hypertension, hyperlipidemia, active adenocarcinoma of the left colon undergoing chemotherapy, BPH, anemia, diabetes, gout, neuropathy, thrombocytopenia, left toe amputation. The patient came in the hospital because of weakness. [facility] and [facility] and re[facility] sent the patient by EMS because of decreased appetite nose bleeds and weakness. He was seen in the emergency room. His BUN creatinine were elevated. He appeared dehydrated. His potassium was high. He was felt to possibly have an infection so he was cultured up and placed on ceftriaxone. He was also given IV fluid and medicines to get the potassium and he was admitted to the floor. This morning the patient is able to interact some but not much. He wears out easily. He denies any chest pain or shortness of breath but beyond that he wore out and was unable to answer questions. Review of Systems Review of Systems
[2023-03-08] MEDS: SODIUM ZIRCONIUM CYCLOSILICATE 10 GM POWD.PACK PO (09:21)
--- NOTE | 2023-03-08 09:40 | PM.IMPN ---
Progress Note: A&P Assessment and Plan (1) Acute UTI: Code(s): N39.0 - Urinary tract infection, site not specified Status: Acute Assessment and Plan: Continue with IV antibiotics and monitor culture. (2) Type 2 diabetes mellitus: Qualifiers: Diabetes mellitus complication status: without complication Diabetes mellitus retirement insulin use: without intermediate designer use Qualified Code(s): E11.9 - Type 2 diabetes mellitus without complications Code(s): E11.9 - Type 2 diabetes mellitus without complications Status: Acute Assessment and Plan: Stable, continue current treatment (3) Acute hyperkalemia: Code(s): E87.5 - Hyperkalemia Status: Acute Assessment and Plan: Kayaxelate 30 gram ordered and monitor. (4) Acute kidney injury: Code(s): N17.9 - Acute kidney failure, unspecified Status: Acute Assessment and Plan: Will hold Lasix and monitor Creatinine (5) Venous insufficiency (chronic) (peripheral): Code(s): I87.2 - Venous insufficiency (chronic) (peripheral) Status: Acute Assessment and Plan: Venous Doppler was continue current treatment (6) Chua catheter in place on admission: Code(s): Z97.8 - Presence of other specified devices Status: Acute Assessment and Plan: Continue with IV antibiotics (7) BPH with obstruction/lower urinary tract symptoms: Code(s): N40.1 - Benign prostatic hyperplasia with lower urinary tract symptoms; N13.8 - Other obstructive and reflux uropathy Status: Acute Assessment and Plan: Stable on current meds continue current treatment Plan Will continue current treatment. home meds reconciled. Monitor electrolytes and cultures Subjective Date/time seen: 03/08/23 09:40 Interval history: Patient was seen during the morning rounds today. Feeling slightly better. No sob or chest pain. No abdominal pain or nausea. Review of Systems Review of Systems: 12 systems were reviewed with pertinent positives and negatives per HPI. Except as documented in the HPI, all other systems were reviewed and are negative. Exam Narrative: Weight 98.4 kg BMI 29.4 Const: Other: Acutely ill-appearing, debilitated, well-developed well nourished HENMT: Other: Head is normocephalic atraumatic, mucous membranes are dry and cracked tongue is dry with dried dark blood in the posterior tongue, soft palate is also dry, no petechia, fair dentition Eyes: Other: Marked conjunctival pallor, no scleral icterus Neck: Other: No lymphadenopathy, supple, no JVD Resp: Other: No increased work of breathing, equal breath sounds Cardio: Other: Irregularly irregular, rate controlled, 2+ bilateral radial pulses, palpable pedal pulses GI: Other: Slightly distended, nontender, hepatomegaly, normoactive bowel sounds : Other: Chua catheter in place with cloudy pale yellow urine Urinary Catheter: Urinary Catheter: patent and draining and urine cloudy Skin: Other: Chronic venous stasis changes bilateral lower extremities with thick yellow flaking skin, open wound to the top of the right foot approximately size of a quarter no active bleeding, no evidence of acute infection, chronic wounds to bilateral posterior calcanei small, stage 2, no evidence of acute infection, venous stasis changed extend up to the knees, areas of almost excoriated appearing skin with scabs scattered throughout the area is a venous stasis, otherwise generalized pallor of the rest the body, erythematous shallow stage 1-2 wounds bilateral buttock Neuro: Other: Patient is alert oriented to person, place, month and age. He could not give me significant details on why he was sent to the hospital. He has no localizing neurologic deficits but is generally weak, no facial asymmetry but speech is delayed and slightly slurred, patient does follow all c
[2023-03-08] MEDS: SODIUM POLYSTYRENE SULFONONATE 15 GM/60 ML BTL PO (10:31)
[2023-03-08] MEDS: TAMSULOSIN HCL 0.4 MG CAPSULE PO (10:33)
[2023-03-08] MEDS: FINASTERIDE 5 MG TABLET PO (10:33)
[2023-03-08] MEDS: dilTIAZem HCL CD 240 MG CAP.24HR PO (10:33)
[2023-03-08] MEDS: METOPROLOL SUCCINATE EXT REL 100 MG TABCR PO (10:33)
[2023-03-08] MEDS: MULTIVITAMINS THERAPEUTIC TAB (*BKC) 1 TABLET PO (10:33)
[2023-03-08] MEDS: COLLAGENASE OINT 30 GM TUBE 1 APPLIC TOPICAL (10:34)
[2023-03-08] MEDS: FLUTICASONE PROPIONATE 0.05% NA SPR 16 GM BTL (*BKC) 2 SPRAY NASAL (10:34)
[2023-03-08] MEDS: MUPIROCIN 2% OINT 22 GM TUBE 1 APPLIC TOPICAL (10:35)
[2023-03-08] MEDS: TRIAMCINOLONE ACET 0.1% CREAM 15 GM TUBE 1 APPLIC TOPICAL ×2 (10:35→20:42)
[2023-03-08] MEDS: allopurinoL 300 MG TABLET PO (10:36)
[2023-03-08] MEDS: CYANOCOBALAMIN 500 MCG TABLET PO (10:37)
[2023-03-08] MEDS: FAMOTIDINE 20 MG TABLET PO (10:38)
[2023-03-08] MEDS: DIGOXIN 250 MCG TABLET PO (10:38)
[2023-03-08 11:58] LABS: Glucose Point of Care 138 mg/dl (65-105)
[2023-03-08] MEDS: CLINDAMYCIN HCL 150 MG CAP PO ×2 (12:11→16:11)
[2023-03-08] MEDS: FERROUS SULFATE 325 MG TABLET DR BY MOUTH ×2 (12:11→16:11)
[2023-03-08 14:24] LABS: Creatinine Urine 41.3 mg/dL; Total Protein Urine Random 20 mg/dL; Ur Ttl Prot Creatinine Ratio 0.48 mg/mg (0-0.20); Urea Random Urine 619 MG/DL
[2023-03-08 14:30] LABS: Sodium Urine Random 76 meq/L
[2023-03-08] MEDS: ACIDOPHILUS/BULGARICUS CHEWABLE TABLET 1 TABLET PO (16:11)
[2023-03-08] MEDS: SODIUM CHLORIDE 0.9% IV 1,000 ML 50 ML IV CONT (16:12)
[2023-03-08 17:01] LABS: Glucose Point of Care 87 mg/dl (65-105)
[2023-03-08 20:04] LABS: Glucose Point of Care 105 mg/dl (65-105)
[2023-03-08] MEDS: SIMVASTATIN 10 MG TABLET PO (20:39)
[2023-03-08] MEDS: CENTRAL LINE FLUSH 10 ML IV PUSH (20:43)
[2023-03-08] MEDS: SODIUM CHLORIDE NASAL GEL 14.1 GM 1 APPLIC NASAL (21:35)
[2023-03-09] VITALS (16 sets, daily range): BP systolic 95–117; BP diastolic 35–59; PULSE 47–92; RESP 16–24; TEMP 36.4–36.9; O2SAT 95–100
[2023-03-09 04:57] LABS: Basophils Absolute Auto 0.1 K/mm3 (0.0-0.1); Basophils Percent Auto 0.4 % (0.2-1.2); Eosinophils Absolute Auto 0.7 K/mm3 (0-0.3); Eosinophils Percent Auto 5.6 % (0-4.4); Hematocrit 25.7 % (42.0-52.0); Hemoglobin 7.6 g/dL (14.0-18.0); Immature Granulocyte Absolute 0.06 K/mm3 (0.00-0.031); Immature Granulocyte Percent A 0.5 % (0-0.5); Lymphocytes Absolute Auto 1.45 K/mm3 (0.9-3.2); Lymphocytes Percent Auto 12.2 % (18.3-44.2); Mean Corpuscular HGB Conc 29.6 g/dl (32-36); Mean Corpuscular Hemoglobin 27.3 pg (26-34); Mean Corpuscular Volume 92.4 fl (80-100); Mean Platelet Volume 9.7 fl (7.4-10.4); Monocytes Absolute Auto 0.9 K/mm3 (0.1-0.6); Monocytes Percent Auto 7.5 % (2.6-8.5); Neutrophils Absolute Auto 8.8 K/mm3 (1.3-6.7); Neutrophils Percent Auto 73.8 % (45.5-73.1); Platelet Count Result 188 k/mm3 (150-375); Red Blood Count 2.78 M/mm3 (4.6-6.20); Red Cell Distribution Width 19.3 % (11.5-14.5); White Blood Count 11.9 K/mm3 (4.5-10.0)
[2023-03-09 05:17] LABS: Alanine Aminotransferase 25 U/L (6-50); Albumin Level 2.4 g/dL (3.5-5.1); Alkaline Phosphatase 1209 U/L (38-126); Anion Gap 8 mmol/L (8-16); Aspartate Amino Transferase 85 U/L (17-59); Bilirubin,Total 1.2 mg/dL (0.2-1.3); Blood Urea Nitrogen 54 mg/dL (9-20); Calcium 8.4 mg/dL (8.4-10.2); Carbon Dioxide 22 mmol/L (22-30); Chloride 112 mmol/L (98-107); Estimated CRCL calculation 38 ml/min; Estimated Glomerular Filt Rate 40; Glucose 79 mg/dL (65-110); Phosphorus 4.6 mg/dL (2.5-4.5); Potassium 4.5 mmol/L (3.4-5.0); Sodium 142 mmol/L (137-145)
[2023-03-09 06:01] LABS: Platelet Estimate Adequate (Adequate)
[2023-03-09 06:02] LABS: Anisocytosis 1+ (NORMAL); Hypochromasia 1+ (NORMAL); Schistocytes Rare (NORMAL)
[2023-03-09] MEDS: TRIAMCINOLONE ACET 0.1% CREAM 15 GM TUBE 1 APPLIC TOPICAL ×2 (06:16→13:39)
[2023-03-09] MEDS: CENTRAL LINE FLUSH 10 ML IV PUSH (06:16)
[2023-03-09 07:36] LABS: Glucose Point of Care 74 mg/dl (65-105)
--- NOTE | 2023-03-09 08:21 | PM.IMPN ---
Progress Note: A&P Assessment and Plan (1) Acute UTI: Code(s): N39.0 - Urinary tract infection, site not specified Status: Acute Assessment and Plan: Continue with IV antibiotics and monitor culture. (2) Type 2 diabetes mellitus: Qualifiers: Diabetes mellitus mcc insulin use: without mcc use Diabetes mellitus complication status: without complication Qualified Code(s): E11.9 - Type 2 diabetes mellitus without complications Code(s): E11.9 - Type 2 diabetes mellitus without complications Status: Acute Assessment and Plan: Stable, continue current treatment (3) Acute hyperkalemia: Code(s): E87.5 - Hyperkalemia Status: Acute Assessment and Plan: Kayaxelate 30 gram ordered and monitor. (4) Acute kidney injury: Code(s): N17.9 - Acute kidney failure, unspecified Status: Acute Assessment and Plan: Will hold Lasix and monitor Creatinine (5) Venous insufficiency (chronic) (peripheral): Code(s): I87.2 - Venous insufficiency (chronic) (peripheral) Status: Acute Assessment and Plan: Venous Doppler was continue current treatment (6) Chua catheter in place on admission: Code(s): Z97.8 - Presence of other specified devices Status: Acute Assessment and Plan: Continue with IV antibiotics (7) BPH with obstruction/lower urinary tract symptoms: Code(s): N40.1 - Benign prostatic hyperplasia with lower urinary tract symptoms; N13.8 - Other obstructive and reflux uropathy Status: Acute Assessment and Plan: Stable on current meds continue current treatment Plan Will continue current treatment. home meds reconciled. Monitor electrolytes and cultures Subjective Date/time seen: 03/09/23 08:21 Interval history: Patient was seen during the morning rounds today. No new overnight complaints Feeling slightly better. No sob or chest pain. No abdominal pain or nausea. Review of Systems Review of Systems: 12 systems were reviewed with pertinent positives and negatives per HPI. Except as documented in the HPI, all other systems were reviewed and are negative. Exam Narrative: Weight 98.4 kg BMI 29.4 Const: Other: Acutely ill-appearing, debilitated, well-developed well nourished HENMT: Other: Head is normocephalic atraumatic, mucous membranes are dry and cracked tongue is dry with dried dark blood in the posterior tongue, soft palate is also dry, no petechia, fair dentition Eyes: Other: Marked conjunctival pallor, no scleral icterus Neck: Other: No lymphadenopathy, supple, no JVD Resp: Other: No increased work of breathing, equal breath sounds Cardio: Other: Irregularly irregular, rate controlled, 2+ bilateral radial pulses, palpable pedal pulses GI: Other: Slightly distended, nontender, hepatomegaly, normoactive bowel sounds : Other: Chua catheter in place with cloudy pale yellow urine Urinary Catheter: Urinary Catheter: patent and draining and urine cloudy Skin: Other: Chronic venous stasis changes bilateral lower extremities with thick yellow flaking skin, open wound to the top of the right foot approximately size of a quarter no active bleeding, no evidence of acute infection, chronic wounds to bilateral posterior calcanei small, stage 2, no evidence of acute infection, venous stasis changed extend up to the knees, areas of almost excoriated appearing skin with scabs scattered throughout the area is a venous stasis, otherwise generalized pallor of the rest the body, erythematous shallow stage 1-2 wounds bilateral buttock Neuro: Other: Patient is alert oriented to person, place, month and age. He could not give me significant details on why he was sent to the hospital. He has no localizing neurologic deficits but is generally weak, no facial asymmetry but speech is delayed and slightly slurred,
[2023-03-09] MEDS: FERROUS SULFATE 325 MG TABLET DR BY MOUTH (08:46)
[2023-03-09] MEDS: dilTIAZem HCL CD 240 MG CAP.24HR PO (08:46)
[2023-03-09] MEDS: ACIDOPHILUS/BULGARICUS CHEWABLE TABLET 1 TABLET PO ×2 (08:46→16:36)
[2023-03-09] MEDS: FAMOTIDINE 20 MG TABLET PO (08:47)
[2023-03-09] MEDS: CYANOCOBALAMIN 500 MCG TABLET PO (08:47)
[2023-03-09] MEDS: TAMSULOSIN HCL 0.4 MG CAPSULE PO (08:47)
[2023-03-09] MEDS: METOPROLOL SUCCINATE EXT REL 100 MG TABCR PO (08:47)
[2023-03-09] MEDS: FINASTERIDE 5 MG TABLET PO (08:48)
[2023-03-09] MEDS: FLUTICASONE PROPIONATE 0.05% NA SPR 16 GM BTL (*BKC) 2 SPRAY NASAL (08:48)
[2023-03-09] MEDS: CLINDAMYCIN HCL 150 MG CAP PO ×3 (08:48→16:36)
[2023-03-09] MEDS: allopurinoL 300 MG TABLET PO (08:49)
[2023-03-09] MEDS: MULTIVITAMINS THERAPEUTIC TAB (*BKC) 1 TABLET PO (08:49)
[2023-03-09] MEDS: DIGOXIN 250 MCG TABLET PO (08:49)
[2023-03-09] MEDS: MUPIROCIN 2% OINT 22 GM TUBE 1 APPLIC TOPICAL (08:50)
[2023-03-09] MEDS: COLLAGENASE OINT 30 GM TUBE 1 APPLIC TOPICAL (08:50)
--- NOTE | 2023-03-09 10:35 | PM.PNNEP ---
Progress Note: A&P Assessment and Plan (1) Acute kidney injury: Code(s): N17.9 - Acute kidney failure, unspecified Status: Acute Assessment and Plan: the patient has acute kidney injury. This is on top of normal kidney function. Creatinine was 1.[address] abdomen and pelvis shows cysts in the right kidney UA shows blood and white cells. Urine protein is 480 urine lytes and fractional excretion of urea are non pre renal this is acute tubular necrosis most likely due to cellulitis and dehydration. His creatinine has improved Will continue IV fluids at50cc an hour. He is also eating. (2) Hyperkalemia: Code(s): E87.5 - Hyperkalemia Status: Acute Assessment and Plan: resolved (3) Type 2 diabetes mellitus with other circulatory complications: Code(s): E11.59 - Type 2 diabetes mellitus with other circulatory complications Status: Chronic Assessment and Plan: On Accu-Cheks and sliding scale insulin per hospitalist. (4) Colon cancer: Code(s): C18.9 - Malignant neoplasm of colon, unspecified Status: Chronic Assessment and Plan: He is getting chemotherapy per Dr. Alvarenga (5) Cellulitis, leg: Code(s): L03.119 - Cellulitis of unspecified part of limb Status: Acute Assessment and Plan: he is on ceftriaxone. blood cultures pending (6) Atrial fibrillation: Code(s): I48.91 - Unspecified atrial fibrillation Status: Chronic Assessment and Plan: Heart rate doing okay (7) Congestive heart failure: Qualifiers: Heart failure type: diastolic Heart failure chronicity: chronic Qualified Code(s): I50.32 - Chronic diastolic (congestive) heart failure Code(s): I50.9 - Heart failure, unspecified Status: Chronic Assessment and Plan: he is a bit dry right now. (8) Essential hypertension: Code(s): I10 - Essential (primary) hypertension Status: Acute Assessment and Plan: systolic blood pressure well controlled (9) Chronic anemia: Code(s): D64.9 - Anemia, unspecified Status: Acute Assessment and Plan: hemoglobin is now 7.6. Will give Epogen and stop his iron since he has an infection (10) UTI (urinary tract infection): Code(s): N39.0 - Urinary tract infection, site not specified Status: Acute Assessment and Plan: blood culture shows Staph. Will add linezolid until the sensitivities come back Subjective Date/time seen: 03/09/23 10:35 Interval history: The patient feels better today. He looks much better. He ate some breakfast this morning but not much dinner last night Review of Systems Cardiovascular: Cardiovascular: Reports no additional cardiovascular complaints Respiratory: Respiratory: Reports no additional respiratory complaints Gastrointestinal: Gastrointestinal: Reports no additional gastrointestinal complaints Genitourinary: Genitourinary: Reports no additional male genitourinary complaints Exam Narrative: WDWN in NAD skin no rash head ncat lungs clear cor reg no rub abd BS+ nontender and soft ext 1+ bilateral edema with bandages over the cellulitic sites Objective Data Vital Signs Vital Signs: Vital Signs - 24 hr 03/08/23 10:38 03/08/23 12:00 03/08/23 12:00 Temperature 97.9 F Pulse Rate 63 65 78 Respiratory Rate 18 Blood Pressure 129/66 Pulse Oximetry 98 Oxygen Delivery 03/08/23 14:00 03/08/23 12:00 03/08/23 16:00 Temperature 97.6 F Pulse Rate 60 78 62 Respiratory Rate 16 Blood Pressure 118/44 L Pulse Oximetry 100 Oxygen Delivery Room Air 03/08/23 16:00 03/08/23 16:00 03/08/23 18:00 Temperature Pulse Rate 73 73 52 L Respiratory Rate Blood Pressure Pulse Oximetry Oxygen Delivery Room Air 03/08/23 19:36 03/08/23 20:00 03/08/23 22:00 Temperature 97.9 F Pulse Rat
[2023-03-09 11:39] LABS: Glucose Point of Care 85 mg/dl (65-105)
[2023-03-09] MEDS: EPOETIN ALFA-EPBX 10,000 UNITS/ML VIAL 10000 UNITS SUB-Q (13:34)
[2023-03-09] MEDS: LINEZOLID 600 MG TABLET PO ×2 (13:35→21:34)
[2023-03-09 16:24] LABS: Glucose Point of Care 116 mg/dl (65-105)
[2023-03-09 20:04] LABS: Glucose Point of Care 114 mg/dl (65-105)
[2023-03-09] MEDS: TRIAMCINOLONE ACET 0.1% CREAM 80 GM TUBE 1 APPLIC TOPICAL (21:33)
[2023-03-09] MEDS: SIMVASTATIN 10 MG TABLET PO (21:34)
[2023-03-09] MEDS: SODIUM CHLORIDE NASAL GEL 14.1 GM 1 APPLIC NASAL (21:34)
[2023-03-10] VITALS (19 sets, daily range): BP systolic 108–120; BP diastolic 32–50; PULSE 39–72; RESP 16–24; TEMP 36.3–37.2; O2SAT 90–100
--- NOTE | 2023-03-10 01:54 | PC.NURSE ---
Patient's heart rate dropping into 20's (lowest seen 27). Patient asymptomatic. Noted that patient received high doses of digoxin, cardizem, and metoprolol 03/09 AM. MD aware. WIll pass along to day shift RN in AM that medications may need to be adjusted. Will continue to monitor.
[2023-03-10] MEDS: SODIUM CHLORIDE 0.9% IV 1,000 ML 50 ML IV CONT ×2 (04:30→21:21)
[2023-03-10] MEDS: TRIAMCINOLONE ACET 0.1% CREAM 80 GM TUBE 1 APPLIC TOPICAL ×3 (04:43→21:07)
[2023-03-10 05:00] LABS: Albumin Level 2.3 g/dL (3.5-5.1); Anion Gap 6 mmol/L (8-16); Blood Urea Nitrogen 41 mg/dL (9-20); Carbon Dioxide 23 mmol/L (22-30); Chloride 111 mmol/L (98-107); Estimated CRCL calculation 55 ml/min; Estimated Glomerular Filt Rate 50; Glucose 85 mg/dL (65-110); Phosphorus 3.9 mg/dL (2.5-4.5); Potassium 4.3 mmol/L (3.4-5.0); Sodium 140 mmol/L (137-145)
[2023-03-10 08:17] LABS: Glucose Point of Care 75 mg/dl (65-105)
--- NOTE | 2023-03-10 08:46 | PM.IMPN ---
Progress Note: A&P Assessment and Plan (1) Acute UTI: Code(s): N39.0 - Urinary tract infection, site not specified Status: Acute Assessment and Plan: Patient was started on linezolid p.o. Will continue to monitor (2) Type 2 diabetes mellitus: Qualifiers: Diabetes mellitus termite exterminator insulin use: without termite exterminator use Diabetes mellitus complication status: without complication Qualified Code(s): E11.9 - Type 2 diabetes mellitus without complications Code(s): E11.9 - Type 2 diabetes mellitus without complications Status: Acute Assessment and Plan: Stable, continue current treatment (3) Acute hyperkalemia: Code(s): E87.5 - Hyperkalemia Status: Acute Assessment and Plan: Kayaxelate 30 gram ordered and monitor. (4) Acute kidney injury: Code(s): N17.9 - Acute kidney failure, unspecified Status: Acute Assessment and Plan: Will hold Lasix and monitor Creatinine (5) Venous insufficiency (chronic) (peripheral): Code(s): I87.2 - Venous insufficiency (chronic) (peripheral) Status: Acute Assessment and Plan: Venous Doppler was continue current treatment (6) Chua catheter in place on admission: Code(s): Z97.8 - Presence of other specified devices Status: Acute Assessment and Plan: Stable (7) BPH with obstruction/lower urinary tract symptoms: Code(s): N40.1 - Benign prostatic hyperplasia with lower urinary tract symptoms; N13.8 - Other obstructive and reflux uropathy Status: Acute Assessment and Plan: Stable on current meds continue current treatment (8) Skin ulcer: Code(s): L98.499 - Non-pressure chronic ulcer of skin of other sites with unspecified severity Status: Acute Assessment and Plan: Wound cultures positive for Staph aureus. Patient is already on linezolid. Continue current treatment Plan Will continue current treatment. home meds reconciled. Monitor electrolytes and cultures Subjective Date/time seen: 03/10/23 08:46 Interval history: Patient was seen during the morning rounds today. Patient heart rate is running low today. Patient feels okay. No shortness of breath or chest pain. No abdominal pain, nausea, no vomiting. Mood stable. Review of Systems Review of Systems: 12 systems were reviewed with pertinent positives and negatives per HPI. Except as documented in the HPI, all other systems were reviewed and are negative. Exam Narrative: Weight 98.4 kg BMI 29.4 Const: Other: Acutely ill-appearing, debilitated, well-developed well nourished HENMT: Other: Head is normocephalic atraumatic, mucous membranes are dry and cracked tongue is dry with dried dark blood in the posterior tongue, soft palate is also dry, no petechia, fair dentition Eyes: Other: Marked conjunctival pallor, no scleral icterus Neck: Other: No lymphadenopathy, supple, no JVD Resp: Other: No increased work of breathing, equal breath sounds Cardio: Other: Irregularly irregular, rate controlled, 2+ bilateral radial pulses, palpable pedal pulses GI: Other: Slightly distended, nontender, hepatomegaly, normoactive bowel sounds : Other: Chua catheter in place with cloudy pale yellow urine Urinary Catheter: Urinary Catheter: patent and draining and urine cloudy Skin: Other: Chronic venous stasis changes bilateral lower extremities with thick yellow flaking skin, open wound to the top of the right foot approximately size of a quarter no active bleeding, no evidence of acute infection, chronic wounds to bilateral posterior calcanei small, stage 2, no evidence of acute infection, venous stasis changed extend up to the knees, areas of almost excoriated appearing skin with scabs scattered throughout the area is a venous stasis, otherwise generalized pallor of the rest the body, erythematous shallow stage 1-
[2023-03-10] MEDS: ACIDOPHILUS/BULGARICUS CHEWABLE TABLET 1 TABLET PO ×2 (09:30→17:07)
[2023-03-10] MEDS: FAMOTIDINE 20 MG TABLET PO (09:30)
[2023-03-10] MEDS: MULTIVITAMINS THERAPEUTIC TAB (*BKC) 1 TABLET PO (09:30)
[2023-03-10] MEDS: TAMSULOSIN HCL 0.4 MG CAPSULE PO (09:30)
[2023-03-10] MEDS: FINASTERIDE 5 MG TABLET PO (09:31)
[2023-03-10] MEDS: LINEZOLID 600 MG TABLET PO ×2 (09:31→21:06)
[2023-03-10] MEDS: FLUTICASONE PROPIONATE 0.05% NA SPR 16 GM BTL (*BKC) 2 SPRAY NASAL (09:31)
[2023-03-10] MEDS: allopurinoL 300 MG TABLET PO (09:32)
[2023-03-10] MEDS: COLLAGENASE OINT 30 GM TUBE 1 APPLIC TOPICAL (09:32)
[2023-03-10] MEDS: CYANOCOBALAMIN 500 MCG TABLET PO (09:32)
[2023-03-10] MEDS: MUPIROCIN 2% OINT 22 GM TUBE 1 APPLIC TOPICAL (09:33)
[2023-03-10 11:58] LABS: Glucose Point of Care 97 mg/dl (65-105)
--- NOTE | 2023-03-10 12:28 | PM.PNNEP ---
Progress Note: A&P Assessment and Plan (1) Acute kidney injury: Code(s): N17.9 - Acute kidney failure, unspecified Status: Acute Assessment and Plan: the patient has acute kidney injury. This is on top of normal kidney function. Creatinine was 1.[address] abdomen and pelvis shows cysts in the right kidney UA shows blood and white cells. Urine protein is 480 urine lytes and fractional excretion of urea are non pre renal this is acute tubular necrosis most likely due to cellulitis and dehydration. His creatinine has improved to 1.4. He is eating. We can stop the IV fluids. (2) Hyperkalemia: Code(s): E87.5 - Hyperkalemia Status: Acute Assessment and Plan: resolved (3) Type 2 diabetes mellitus with other circulatory complications: Code(s): E11.59 - Type 2 diabetes mellitus with other circulatory complications Status: Chronic Assessment and Plan: On Accu-Cheks and sliding scale insulin per hospitalist. (4) Colon cancer: Code(s): C18.9 - Malignant neoplasm of colon, unspecified Status: Chronic Assessment and Plan: He is getting chemotherapy per Dr. Alvarenga (5) Cellulitis, leg: Code(s): L03.119 - Cellulitis of unspecified part of limb Status: Acute Assessment and Plan: he is on ceftriaxone. blood cultures Negative today (6) Atrial fibrillation: Code(s): I48.91 - Unspecified atrial fibrillation Status: Chronic Assessment and Plan: Heart rate doing okay (7) Congestive heart failure: Qualifiers: Heart failure type: diastolic Heart failure chronicity: chronic Qualified Code(s): I50.32 - Chronic diastolic (congestive) heart failure Code(s): I50.9 - Heart failure, unspecified Status: Chronic Assessment and Plan: compensated (8) Essential hypertension: Code(s): I10 - Essential (primary) hypertension Status: Acute Assessment and Plan: systolic blood pressure well controlled (9) Chronic anemia: Code(s): D64.9 - Anemia, unspecified Status: Acute Assessment and Plan: hemoglobin is now 7.6. on EPO (10) UTI (urinary tract infection): Code(s): N39.0 - Urinary tract infection, site not specified Status: Acute Assessment and Plan: blood culture shows Staph. Will add linezolid until the sensitivities come back Subjective Date/time seen: 03/10/23 12:28 Interval history: Patient feels good. He is conversive. He denies shortness of breath or chest Exam Narrative: WDWN in NAD skin no rash head ncat lungs clear bilaterally cor reg no rub or gallop abd BS+ nontender and soft ext 1+ bilateral edema with bandages over the cellulitic sites Objective Data Vital Signs Vital Signs: Vital Signs - 24 hr 03/09/23 14:00 03/09/23 16:00 03/09/23 16:00 Temperature 97.8 F Pulse Rate 88 50 L 56 L Respiratory Rate 24 H Blood Pressure 108/35 L Pulse Oximetry 98 Oxygen Delivery 03/09/23 16:00 03/09/23 18:00 03/09/23 20:00 Temperature 97.6 F Pulse Rate 56 L 55 L 55 L Respiratory Rate 24 H 24 H Blood Pressure 95/40 L Pulse Oximetry 98 95 Oxygen Delivery Room Air 03/09/23 20:00 03/09/23 20:00 03/09/23 22:00 Temperature Pulse Rate 55 L 59 L 54 L Respiratory Rate 24 H Blood Pressure Pulse Oximetry 95 Oxygen Delivery Room Air 03/10/23 00:00 03/10/23 00:25 03/10/23 00:00 Temperature 97.5 F L Pulse Rate 54 L 49 L 39 L Respiratory Rate 24 H 24 H Blood Pressure 111/32 L Pulse Oximetry 95 90 Oxygen Delivery Room Air 03/10/23 02:00 03/10/23 04:00 03/10/23 04:00 Temperature Pulse Rate 54 L 58 L 58 L Respiratory Rate 24 H Blood Pressure Pulse Oximetry 90 Oxygen Delivery Room Air 03/10/23 04:55 03/10/23 05:57 03/10/23 07:28 Temperature 97.3 F L 99.0 F Pulse Rate 54 L 54 L
[2023-03-10 16:47] LABS: Glucose Point of Care 91 mg/dl (65-105)
[2023-03-10 20:42] LABS: Glucose Point of Care 134 mg/dl (65-105)
[2023-03-10] MEDS: SIMVASTATIN 10 MG TABLET PO (21:06)
[2023-03-10] MEDS: SODIUM CHLORIDE NASAL GEL 14.1 GM 1 APPLIC NASAL (21:07)
[2023-03-11] VITALS (11 sets, daily range): BP systolic 110–127; BP diastolic 44–71; PULSE 55–92; RESP 18–20; TEMP 36.2–36.7; O2SAT 96–99
[2023-03-11] MEDS: TRIAMCINOLONE ACET 0.1% CREAM 80 GM TUBE 1 APPLIC TOPICAL ×2 (05:12→15:01)
[2023-03-11 05:35] LABS: Albumin Level 2.4 g/dL (3.5-5.1); Anion Gap 8 mmol/L (8-16); Blood Urea Nitrogen 38 mg/dL (9-20); Calcium 7.6 mg/dL (8.4-10.2); Carbon Dioxide 18 mmol/L (22-30); Chloride 111 mmol/L (98-107); Estimated CRCL calculation 60 ml/min; Estimated Glomerular Filt Rate 60; Glucose 81 mg/dL (65-110); Phosphorus 3.5 mg/dL (2.5-4.5); Potassium 4.3 mmol/L (3.4-5.0); Sodium 137 mmol/L (137-145)
[2023-03-11 07:37] LABS: Glucose Point of Care 79 mg/dl (65-105)
[2023-03-11] MEDS: CYANOCOBALAMIN 500 MCG TABLET PO (08:52)
[2023-03-11] MEDS: LINEZOLID 600 MG TABLET PO (08:52)
[2023-03-11] MEDS: allopurinoL 300 MG TABLET PO (08:52)
[2023-03-11] MEDS: MULTIVITAMINS THERAPEUTIC TAB (*BKC) 1 TABLET PO (08:52)
[2023-03-11] MEDS: ACIDOPHILUS/BULGARICUS CHEWABLE TABLET 1 TABLET PO ×2 (08:52→16:54)
[2023-03-11] MEDS: dilTIAZem HCL CD 120 MG CAP.24HR PO (08:52)
[2023-03-11] MEDS: FINASTERIDE 5 MG TABLET PO (08:52)
[2023-03-11] MEDS: TAMSULOSIN HCL 0.4 MG CAPSULE PO (08:52)
[2023-03-11] MEDS: FAMOTIDINE 20 MG TABLET PO (08:52)
[2023-03-11] MEDS: COLLAGENASE OINT 30 GM TUBE 1 APPLIC TOPICAL (08:53)
[2023-03-11] MEDS: MUPIROCIN 2% OINT 22 GM TUBE 1 APPLIC TOPICAL (08:53)
[2023-03-11] MEDS: FLUTICASONE PROPIONATE 0.05% NA SPR 16 GM BTL (*BKC) 2 SPRAY NASAL (08:53)
[2023-03-11] MEDS: EPOETIN ALFA-EPBX 10,000 UNITS/ML VIAL 10000 UNITS SUB-Q (09:33)
[2023-03-11 12:14] LABS: Glucose Point of Care 126 mg/dl (65-105)
[2023-03-11 12:59] LABS: Influenza A QL RT-PCR Negative (Negative); Influenza B QL RT-PCR Negative (Negative); RSV RNA, RT-PCR Negative (Negative); SARS-CoV-2 RNA PCR Positive (Negative)
--- NOTE | 2023-03-11 13:00 | PM.PNNEP ---
Progress Note: A&P Assessment and Plan (1) Acute kidney injury: Code(s): N17.9 - Acute kidney failure, unspecified Status: Acute Assessment and Plan: resolving if not resolved evaluation to date: CT abdomen and pelvis shows cysts in the right kidney UA shows blood and white cells urine protein is 480 urine lytes and fractional excretion of urea are non pre renal likely acute tubular necrosis most likely due to cellulitis and dehydration continue supportie therapy (2) Hyperkalemia: Code(s): E87.5 - Hyperkalemia Status: Acute Assessment and Plan: resolved secondary to #1 (3) Cellulitis, leg: Code(s): L03.119 - Cellulitis of unspecified part of limb Status: Acute Assessment and Plan: improving on antibiotics (4) Essential hypertension: Code(s): I10 - Essential (primary) hypertension Status: Chronic Assessment and Plan: reasonable control follow trend of hemodynamics (5) Chronic anemia: Code(s): D64.9 - Anemia, unspecified Status: Acute Assessment and Plan: due to AGUILAR, acute illness, and malignancy follow trend of H/H (6) Type 2 diabetes mellitus with other circulatory complications: Code(s): E11.59 - Type 2 diabetes mellitus with other circulatory complications Status: Chronic Assessment and Plan: follow Accu-Cheks glycemic control per hospitalists Will continue to follow. Subjective Date/time seen: 03/11/23 13:00 Interval history: Follow-up for acute kidney injury/acute renal failure. Renal function continues to improve with current therapy/interventions; no apparent distress noted; feels reasonbly well at the time of my visit. Exam Narrative: General: elderly male in NAD Heart: normal S1 and S2; IRRR Lungs: clear to auscultation Abdomen: soft, nontender, nondistended, positive bowel sounds Extremities: no cyanosis or clubbing; trace - 1+ edema Skin: warm and dry Objective Data Vital Signs Vital Signs: Vital Signs Temp Pulse Resp BP Pulse Ox O2 Del Method 03/11/23 12:00 75 03/11/23 12:00 98 Room Air 03/11/23 11:55 98.0 F 68 20 125/71 98 03/11/23 10:00 72 03/11/23 08:00 80 03/11/23 08:00 99 Room Air 03/11/23 07:27 97.2 F L 92 20 127/50 L 98 03/11/23 05:11 68 03/11/23 04:00 97.7 F 72 18 117/44 L 98 03/11/23 04:00 82 18 99 Room Air 03/11/23 04:00 82 03/11/23 02:00 55 L 03/11/23 00:00 59 L 18 99 Room Air 03/11/23 00:00 59 L 03/10/23 23:25 97.8 F 62 18 120/42 L 99 03/10/23 22:00 72 03/10/23 20:00 54 L 16 99 Room Air 03/10/23 20:00 54 L 03/10/23 19:40 97.9 F 52 L 16 113/50 L 99 03/10/23 18:00 62 03/10/23 16:00 56 L 20 100 Room Air 03/10/23 16:00 56 L 03/10/23 14:00 56 L 03/10/23 15:40 98.6 F 61 20 119/46 L 100 Intake/Output Intake/Output: Intake & Output 03/08/23 03/09/23 03/10/23 03/11/23 23:59 23:59 23:59 23:59 Intake Total 2730 770 5670 680 Output Total 2301 2000 1250 600 Balance 429 1230 4420 80 Meds/Results Medications: Active Medications Generic Name Dose Route Start Last Admin Trade Name Mingq PRN Reason Stop Dose Admin Acetaminophen 650 mg 03/08/23 01:08 Acetaminophen 325 Mg Tablet PO Q4H PRN Mild Pain (1-3) or Fever Albuterol 0.5 mg 03/08/23 09:55 Albuterol Sulfate Neb 2.5 Mg/3 Ml Inh INHALATION Q6HRT PRN Shortness Of Breath Or Wheezing Allopurinol 300 mg 03/08/23 10:00 03/11/23 08:52 Allopurinol 300 Mg Tablet PO 300 mg DAILY SOCRATES Administration Collagenase 1 applic 03/08/23 11:00 03/11/23 08:53 Collagenase Oint 30 Gm Tube TOPICAL 1 applic DAILY SOCRATES Administration Cyanocobalamin 500 mcg 03/08/23 10:00 03/11/23 08:52 Cyanocobalamin 500 Mcg Tablet PO 500 mcg DAILY SOCRATES
--- NOTE | 2023-03-11 15:07 | PM.DS ---
DS: Admitting Diagnosis Discharge Date 03/11/2023: Admitting Diagnosis AGUILAR Hyperkalemia UTI DS: Discharge Diagnosis Discharge Diagnosis (1) Malignant neoplasm of overlapping sites of colon: Code(s): C18.8 - Malignant neoplasm of overlapping sites of colon Status: Chronic (2) Venous insufficiency (chronic) (peripheral): Code(s): I87.2 - Venous insufficiency (chronic) (peripheral) Status: Acute (3) Type 2 diabetes mellitus with other circulatory complications: Code(s): E11.59 - Type 2 diabetes mellitus with other circulatory complications Status: Chronic (4) Colon cancer: Code(s): C18.9 - Malignant neoplasm of colon, unspecified Status: Chronic (5) Atrial fibrillation with rapid ventricular response: Code(s): I48.91 - Unspecified atrial fibrillation Status: Acute (6) Congestive heart failure: Qualifiers: Heart failure type: diastolic Heart failure chronicity: chronic Qualified Code(s): I50.32 - Chronic diastolic (congestive) heart failure Code(s): I50.9 - Heart failure, unspecified Status: Chronic (7) Essential hypertension: Code(s): I10 - Essential (primary) hypertension Status: Acute (8) Chronic anemia: Code(s): D64.9 - Anemia, unspecified Status: Acute (9) Hyperkalemia: Code(s): E87.5 - Hyperkalemia Status: Acute (10) UTI (urinary tract infection): Code(s): N39.0 - Urinary tract infection, site not specified Status: Acute (11) AGUILAR (acute kidney injury): Code(s): N17.9 - Acute kidney failure, unspecified Status: Acute (12) Cardiomyopathy: Code(s): I42.9 - Cardiomyopathy, unspecified Status: Acute (13) BPH with obstruction/lower urinary tract symptoms: Code(s): N40.1 - Benign prostatic hyperplasia with lower urinary tract symptoms; N13.8 - Other obstructive and reflux uropathy Status: Acute DS: Summary Hospital Course Reason for hospitalization: Patient transferred from nursing to the ER to be evaluated for generalized weakness Hospital Course: H&P: HPI History of Present Illness Date/Time: 03/08/23? 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 Source of information is mostly from past medical records, ER report and nursing report.? The patient is only alert oriented to person and place and month but is confused as to the year and recent events.? Patient's speech is hesitant/stuttering and difficult to understand the patient reportedly recover from COVID 3 weeks ago.? He is however required new oxygen requirement since he (3 days ago).? Since he was started on oxygen the patient has been picking at his nose and sucking on his fingers.? On arrival to the hospital patient is noted to have dried blood in his mouth in posterior oropharynx.? He reports that he has not been eating.? He denies any abdominal pain or any reasons for not eating.? He denies feeling short of breath or localized pain.? Patient had a Chua catheter in place on arrival to the ER.? ER exchange the patient's catheter on arrival to the hospital.? The patient was afebrile in the ER.? Patient has a known history of AFib in within AFib on arrival to the ER but his rate is controlled.? Blood pressures have been stable since presentation to the hospital.? He has remained on room air satting 100%.? In the ER was noted to be notably dehydrated and labs demonstrated acute kidney injury with acute hyperkalemia.? Patient received calcium, bicarb and insulin initially.? Repeat electrolyte panel demonstrate potassium went from 6.7
[2023-03-11 18:16] LABS: Glucose Point of Care 123 mg/dl (65-105)
[2023-03-23 13:36] LABS: T3 Free 1.8 pg/mL
== END 2023-03-11 17:31 | DRG 698 ==
LOC: ANHED 22:02 → ANHIMU 03-08 01:30
PROVIDERS: Internal Medicine; Internal Medicine Nephrology; Admitting Provider Internal Medicine; Emergency Provider Student in an Organized Health Care Education/Training Program; PCP Family Medicine; Visit Provider Family Medicine
DX: T83.511A Infection and inflammatory reaction due to indwelling urethral catheter, initial encounter (principal); G93.41 Metabolic encephalopathy; U07.1 COVID-19; N17.9 Acute kidney failure, unspecified; I48.20 Chronic atrial fibrillation, unspecified; I50.22 Chronic systolic (congestive) heart failure; C18.7 Malignant neoplasm of sigmoid colon; C78.7 Secondary malignant neoplasm of liver and intrahepatic bile duct; C78.02 Secondary malignant neoplasm of left lung; C77.2 Secondary and unspecified malignant neoplasm of intra-abdominal lymph nodes; N13.8 Other obstructive and reflux uropathy; N39.0 Urinary tract infection, site not specified; E87.5 Hyperkalemia; I11.0 Hypertensive heart disease with heart failure; I87.2 Venous insufficiency (chronic) (peripheral); I87.8 Other specified disorders of veins; E53.8 Deficiency of other specified B group vitamins; E11.42 Type 2 diabetes mellitus with diabetic polyneuropathy; E11.51 Type 2 diabetes mellitus with diabetic peripheral angiopathy without gangrene; E78.2 Mixed hyperlipidemia; L97.519 Non-pressure chronic ulcer of other part of right foot with unspecified severity; L89.321 Pressure ulcer of left buttock, stage 1; L89.311 Pressure ulcer of right buttock, stage 1; N40.1 Benign prostatic hyperplasia with lower urinary tract symptoms; Z20.822 Contact with and (suspected) exposure to COVID-19; F81.9 Developmental disorder of scholastic skills, unspecified; Z85.038 Personal history of other malignant neoplasm of large intestine; Z79.01 Long term (current) use of anticoagulants; Z89.422 Acquired absence of other left toe(s)
CPT/HCPCS: 36415; 71045; 74176; 76775; 80048; 80053; 80069; 81001; 82550; 82570; 82948; 83605; 83690; 83735; 83880; 84100; 84156; 84300; 84439; 84443; 84480; 84484; 84540; 85025; 85610; 85730; 87040; 87086; 87147; 87181; 87186; 87637; 93005; 93970; 96365; 96375; 96376; 99285; A9270; J0612; J0696; J1815; J7030; J7120; Q5105